=== PATIENT | female | born 1960 | race Two or more races ===

== ENCOUNTER 2020-04-19 08:52 | Outpatient (REF) | payer MEDICARE, MEDICAID, SELFPAY ==
[2020-04-19 10:04] LABS: Basophils Absolute Auto 0.1 X10*3/uL (0.0-0.2); Basophils Percent Auto 0.8 % (0-2); Eosinophils Absolute Auto 0.2 X10*3/uL (0.0-0.4); Hematocrit 37.7 % (37-47); Hemoglobin 11.8 g/dl (12.0-16.0); Imm Gran Abs Auto 0.02 X10*3/uL (0.00-0.03); Imm Gran Pct Auto 0.3 % (0.0-0.4); Lymphocytes Absolute Auto 1.6 X10*3/uL (1.2-4.9); Lymphocytes Percent Auto 26.7 % (20-40); MANUAL DIFF FLAG NO; Mean Corpuscular HGB Conc 31.3 g/dl (31.0-35.0); Mean Corpuscular Hemoglobin 26.7 pg (27.0-33.0); Mean Corpuscular Volume 85.3 fL (80-98); Mean Platelet Volume 10.4 fL (9.4-12.3); Monocytes Absolute Auto 0.6 X10*3/uL (0.1-1.2); Monocytes Percent Auto 9.2 % (2-11); Neutrophils Absolute Auto 3.6 X10*3/uL (2.0-8.3); Platelet Count 283 X10*3/uL (160-400); Red Blood Count 4.42 X10*6/uL (4.20-5.50); Red Cell Distribution Width 16.4 % (11.0-16.0)
[2020-04-19 10:21] LABS: Estimated Average Glucose 154 mg/dL
[2020-04-19 10:32] LABS: Alanine Aminotransferase 87 U/L (0-31); Alkaline Phosphatase 148 U/L (39-117); Anion Gap 11 (12-20); Aspartate Amino Transferase 94 U/L (5-31); Bilirubin Total 0.5 mg/dL (0.0-1.0); Blood Urea Nitrogen 10 mg/dL (9-16); Calcium 9.1 mg/dL (8.4-10.2); Carbon Dioxide 25 mmol/L (22-29); Chloride 104 mmol/L (96-108); Cholesterol 172 mg/dL; Estimated Glomerular Filt Rate > 60; Glucose Random 159 mg/dL (60-115); HDL Cholesterol 39 mg/dL; LDL Cholesterol Calculated 107 mg/dl; Potassium 4.4 mmol/l (3.3-5.1); Sodium 136 mmol/L (135-145); Total Protein 8.3 g/dL (6.5-8.0); Triglycerides 132 mg/dL
[2020-04-19 10:38] LABS: Thyroid Stimulating Hormone 2.32 uIU/mL (0.32-4.0)
[2020-04-19 10:49] LABS: Vitamin B12 416 pg/mL (200-900)
[2020-04-19 10:58] LABS: Glucose Urine UA >=1000 MG/DL (NEG); Leukocyte Esterase Urine NEG (NEG); Nitrite Urine NEG (NEG); Specific Gravity - Urine 1.015 (1.005-1.025); Urine Blood NEG (NEG); Urine Ketones NEG (NEG); Urine Protein NEG (NEG-TRACE)
[2020-04-19 11:00] LABS: Appearance Urine CLEAR; Color Urine YELLOW
[2020-04-19 11:21] LABS: Creatinine Urine 59.15 mg/dL; Microalbumin Urine < 5.0 mg/L
[2020-04-19 11:34] LABS: RBC Urine 0-2 /HPF (0); Squamous Epithelial Cell Urine 1+ /LPF; WBC Urine 0-2 /HPF (0-4)
== END 2020-04-19 08:53 | disposition home or self-care (01) ==
LOC: HO.LAB 08:52
PROVIDERS: PCP Internal Medicine; Visit Provider Internal Medicine
DX: E78.00 Pure hypercholesterolemia, unspecified (principal); M54.41 Lumbago with sciatica, right side; K75.4 Autoimmune hepatitis; E11.9 Type 2 diabetes mellitus without complications; Z79.4 Long term (current) use of insulin; R35.1 Nocturia; R53.83 Other fatigue; R53.81 Other malaise
CPT/HCPCS: 36415; 80053; 80061; 81001; 82043; 82607; 83036; 84443; 85025; 87086

== ENCOUNTER 2020-05-08 09:36 | Emergency (ER) | payer MEDICARE, MEDICAID, SELFPAY ==
[2020-05-08 09:44] VITALS: BP 157/65; PULSE 90; RESP 17; TEMP 36.1; O2SAT 98; BMI 27.8
--- NOTE | 2020-05-08 10:01 | XR_ITS ---
EXAMINATION: XR KNEE, RIGHT XR TIBIA/FIBULA, RIGHT CLINICAL INFORMATION: Pain. COMPARISON: None TECHNIQUE: AP, bilateral oblique, and lateral views of the right knee are obtained. AP and lateral views of the right tibia/fibular obtained. FINDINGS: Right knee: There is no fracture, malalignment, or joint effusion. There are tiny marginal osteophytes of the patella. There is no apparent joint space narrowing. There is focal ossification adjacent to the medial femoral epicondyle consistent with an old medial collateral ligament injury. There is evidence of old [place]-Schlatter's disease. Right tibia/fibula: There is no fracture or malalignment. The right ankle is unremarkable. There is a posterior calcaneal spur. XR/XR knee RT 4V IMPRESSION: Right knee: Minor spurring of the patella. No joint space narrowing. Old proximal medial collateral ligament injury and old [place]-Schlatter's disease. No evidence of acute injury. Right tibia/fibula: Posterior calcaneal spur. Otherwise, unremarkable radiographs.
--- NOTE | 2020-05-08 10:01 | ED.GENADULT ---
HPI - General Adult General Chief complaint: General Medical Stated complaint: rt leg pain Time Seen by Provider: 05/08/20 10:01 History of Present Illness HPI narrative: Patient complains of right knee pain and right smith pain starting yesterday, no accident, no fever no chills no redness no warmth no swelling, patient does have chronic back pain but she denies any pain radiating down her leg from the back Related Data Previous Rx's Medication Instructions Recorded omeprazole 40 mg capsule,delayed 40 mg PO DAILY 30 Days #30 cap 03/10/20 release folic acid 1 mg tablet 1 mg PO DAILY #30 tab 03/24/20 cyclobenzaprine 5 mg PO TID PRN #10 tab 05/08/20 walker #1 ea 05/08/20 Allergies Allergy/AdvReac Type Severity Reaction Status Date / Time duloxetine [From CYMBALTA] Allergy Intermediate SHAKINESS Verified 05/08/20 09:47 Review of Systems Review of Systems: No fever no chills no dizziness no weakness no recent injury, no numbness no weakness no tingling no calf pain no leg swelling no hip pain Yes all other systems are reviewed and are negative [facility] Past Medical History Source: nursing notes reviewed Medical History (Updated 05/08/20 @ 11:27 by CLAUDIA Palacios) Diabetes Fibromyalgia High blood pressure Social History Social History Advance Directives: No Advance Directives Information Provided: No Physical Exam Vital Signs: Vital Signs: Last Vital Signs Temp 96.9 F 05/08/20 09:44 Pulse 90 05/08/20 09:44 Resp 17 05/08/20 09:44 BP 157/65 H 05/08/20 09:44 Pulse Ox 98 05/08/20 09:44 Body Mass Index 27.8 Patient is A&O x3, comfortable relaxed cooperative no acute distress Normocephalic atraumatic Neck is supple Respiratory no distress The right leg exam the hip has full range of motion she can lift the leg there is no tenderness of the hip The thigh is not tender There is lateral and anterior right knee tenderness but no redness warmth or swelling there is pain when she flexes the knee there is also tenderness to the proximal tibia area just below the knee anterior, again no redness no warmth no swelling there is no calf tenderness or swelling and there is no edema, the leg is neurovascular intact distal, she is walking but with a limp, the skin is intact no wounds The skin no rashes Neuro no focal deficit Course Course Course Narrative: X-ray of right knee showed some arthritic changes, x-ray of the right tibial had no acute findings Discharge Plan Discharge Clinical Impression: Knee joint pain Qualifiers: Laterality: right Qualified Code(s): M25.561 - Pain in right knee Patient Disposition: Home, Self-Care Additional Instructions: Follow with orthopedist and your doctor for further evaluation Prescriptions: New cyclobenzaprine 5 mg tablet 5 mg PO TID PRN (Reason: muscle spasm) Qty: 10 RF: 0 (DME) walker Misc See Rx Instructions .ROUTE .MEDSUPPLY Qty: 1 RF: 0 No Action omeprazole 40 mg capsule,delayed release(DR/EC) 40 mg PO DAILY 30 Days Qty: 30 RF: 2 folic acid 1 mg tablet 1 mg PO DAILY Qty: 30 RF: 5 Referrals: Lyndsey Smith MD [Physician] - 2 days (Right knee pain) Discharge Date/Time: 05/08/20 11:35
--- NOTE | 2020-05-08 10:02 | XR_ITS ---
EXAMINATION: XR KNEE, RIGHT XR TIBIA/FIBULA, RIGHT CLINICAL INFORMATION: Pain. COMPARISON: None TECHNIQUE: AP, bilateral oblique, and lateral views of the right knee are obtained. AP and lateral views of the right tibia/fibular obtained. FINDINGS: Right knee: There is no fracture, malalignment, or joint effusion. There are tiny marginal osteophytes of the patella. There is no apparent joint space narrowing. There is focal ossification adjacent to the medial femoral epicondyle consistent with an old medial collateral ligament injury. There is evidence of old [place]-Schlatter's disease. Right tibia/fibula: There is no fracture or malalignment. The right ankle is unremarkable. There is a posterior calcaneal spur. XR/XR tibia fibula RT 2V IMPRESSION: Right knee: Minor spurring of the patella. No joint space narrowing. Old proximal medial collateral ligament injury and old [place]-Schlatter's disease. No evidence of acute injury. Right tibia/fibula: Posterior calcaneal spur. Otherwise, unremarkable radiographs.
== END 2020-05-08 11:35 | disposition home or self-care (01) ==
PROVIDERS: Emergency Provider Emergency Medicine; PCP Internal Medicine
DX: M25.561 Pain in right knee (principal); M79.604 Pain in right leg; M79.7 Fibromyalgia; Z79.899 Other long term (current) drug therapy
CPT/HCPCS: 73564; 73590; 99283

== ENCOUNTER → 2020-05-17 09:08 | Outpatient (BNVA) | payer MEDICARE, MEDICAID, SELFPAY | PROVIDERS: PCP Internal Medicine; Visit Provider Internal Medicine Gastroenterology | DX: Z13.89 Encounter for screening for other disorder (principal) | CPT/HCPCS: Q3014 ==

== ENCOUNTER 2020-05-18 09:30 | Outpatient (REF) | payer MEDICARE, MEDICAID, SELFPAY ==
[2020-05-18 10:08] LABS: Basophils Absolute Auto 0.1 X10*3/uL (0.0-0.2); Basophils Percent Auto 1.1 % (0-2); Eosinophils Absolute Auto 0.1 X10*3/uL (0.0-0.4); Eosinophils Percent Auto 2.3 % (0-4); Hematocrit 36.3 % (37-47); Imm Gran Abs Auto 0.01 X10*3/uL (0.00-0.03); Imm Gran Pct Auto 0.2 % (0.0-0.4); Lymphocytes Absolute Auto 2.1 X10*3/uL (1.2-4.9); Lymphocytes Percent Auto 36.9 % (20-40); MANUAL DIFF FLAG NO; Mean Corpuscular HGB Conc 30.3 g/dl (31.0-35.0); Mean Corpuscular Hemoglobin 25.8 pg (27.0-33.0); Mean Corpuscular Volume 85.2 fL (80-98); Mean Platelet Volume 10.3 fL (9.4-12.3); Monocytes Absolute Auto 0.5 X10*3/uL (0.1-1.2); Monocytes Percent Auto 9.7 % (2-11); Neutrophils Absolute Auto 2.8 X10*3/uL (2.0-8.3); Neutrophils Percent Auto 49.8 % (45-73); Platelet Count 258 X10*3/uL (160-400); Red Blood Count 4.26 X10*6/uL (4.20-5.50); White Blood Count 5.6 X10*3/uL (4.8-10.8)
[2020-05-18 10:13] LABS: Prothrombin Time 12.1 SEC (10.8-13.0)
[2020-05-18 11:33] LABS: Alanine Aminotransferase 173 U/L (0-31); Albumin Level 3.9 g/dL (3.5-5.0); Alkaline Phosphatase 177 U/L (39-117); Anion Gap 11 (12-20); Aspartate Amino Transferase 169 U/L (5-31); Bilirubin Total 0.6 mg/dL (0.0-1.0); Blood Urea Nitrogen 8 mg/dL (9-16); Calcium 8.8 mg/dL (8.4-10.2); Carbon Dioxide 26 mmol/L (22-29); Chloride 102 mmol/L (96-108); Estimated Glomerular Filt Rate > 60; Glucose Random 135 mg/dL (60-115); Iron 39 mcg/dL (30-160); Percent Iron Saturation 9 % (15-50); Potassium 4.2 mmol/l (3.3-5.1); Sodium 135 mmol/L (135-145); Total Iron Binding Capacity 429 mcg/dL (228-428); Total Protein 8.8 g/dL (6.5-8.0); Unsaturated Iron Binding 390 ug/dL
[2020-05-18 11:40] LABS: Folate > 20.0 ng/mL (> or = 4.0); Vitamin B12 522 pg/mL (200-900)
[2020-05-19 15:39] LABS: Mitochondrial Antibodies NEGATIVE (NEGATIVE)
[2020-05-19 17:12] LABS: Immunoglobulin G 2964 mg/dL (600-1640)
[2020-05-23 13:03] LABS: Vitamin D 25-OH, D2 <4 ng/mL; Vitamin D 25-OH, D3 31 ng/mL; Vitamin D 25-OH, Total 31 ng/mL (30-100)
[2020-05-24 14:12] LABS: Beta-Gamma Tocopherol 2.5 mg/L (<=4.3); Vitamin A 21 mcg/dL (38-98)
[2020-05-24 14:57] LABS: Vitamin B1 9 nmol/L (8-30)
[2020-05-24 17:17] LABS: Vitamin C 1.1 mg/dL (0.3-2.7)
[2020-05-24 17:47] LABS: Nicotinamide <20 ng/mL; Vit B3 - Nicotinic Acid <20 ng/mL
[2020-05-25 12:43] LABS: Vitamin B6 23.3 ng/mL (2.1-21.7)
[2020-05-25 17:02] LABS: Vitamin K1 415 pg/mL (130-1500)
[2020-05-31 19:12] LABS: Vitamin B5 (Pantothenic Acid) 63 ng/mL (<275)
== END 2020-05-18 09:31 | disposition home or self-care (01) ==
LOC: HO.LAB 09:30
PROVIDERS: PCP Internal Medicine; Visit Provider Internal Medicine Gastroenterology
DX: K74.60 Unspecified cirrhosis of liver (principal); K75.81 Nonalcoholic steatohepatitis (NASH); K75.4 Autoimmune hepatitis; E11.9 Type 2 diabetes mellitus without complications; Z79.4 Long term (current) use of insulin
CPT/HCPCS: 36415; 80053; 82180; 82306; 82607; 82746; 82784; 83540; 84207; 84425; 84446; 84590; 84591; 84597; 85025; 85610; 86255; 86256

== ENCOUNTER → 2020-05-19 10:02 | Outpatient (BNVA) | payer MEDICARE, MEDICAID, SELFPAY | PROVIDERS: PCP Internal Medicine; Visit Provider Surgery | DX: K80.20 Calculus of gallbladder without cholecystitis without obstruction (principal) | CPT/HCPCS: 99212 ==

== ENCOUNTER → 2020-06-02 13:06 | Outpatient (BNVA) | payer MEDICARE, MEDICAID, SELFPAY | PROVIDERS: PCP Internal Medicine; Visit Provider Surgery | DX: K80.20 Calculus of gallbladder without cholecystitis without obstruction (principal) | CPT/HCPCS: 99212 ==

== ENCOUNTER → 2020-06-06 13:10 | Outpatient (BNVA) | payer MEDICARE, MEDICAID, SELFPAY | PROVIDERS: PCP Internal Medicine; Visit Provider Internal Medicine Cardiovascular Disease | DX: Z01.810 Encounter for preprocedural cardiovascular examination (principal); R06.00 Dyspnea, unspecified | CPT/HCPCS: 93005; 99212 ==

== ENCOUNTER → 2020-06-07 10:24 | Outpatient (BNV) | payer MEDICARE, MEDICAID, SELFPAY | PROVIDERS: PCP Internal Medicine; Visit Provider Internal Medicine Medical Oncology | DX: D68.61 Antiphospholipid syndrome (principal) | CPT/HCPCS: 99212; 99213; 99214 ==

== ENCOUNTER 2020-06-10 10:32 | Outpatient (REF) | payer MEDICARE, MEDICAID, SELFPAY ==
--- NOTE | 2020-06-10 10:47 | MR_ITS ---
EXAMINATION: MR ABDOMEN WITHOUT AND WITH CONTRAST CLINICAL INFORMATION: Autoimmune hepatitis COMPARISON: Previous CT scan of the abdomen and pelvis December 2019 and abdominal ultrasounds most recent October 2019 TECHNIQUE: MR abdomen was performed without and with use of 6.5 mL intravenous Gadavist gadolinium contrast. Postcontrast images are performed in multiphase dynamic sequences. Imaging was performed in 3 planes. FINDINGS: LUNG BASES: The visualized lung bases are unremarkable. LIVER, GALLBLADDER, AND BILIARY TREE: The liver is normal in size and normal in signal. The contour of the liver is slightly irregular or nodular questionable for mild cirrhosis. No focal hepatic lesion or biliary ductal dilatation is present. The gallbladder is unremarkable with no evidence of gallbladder wall thickening, or obvious pericholecystic inflammatory changes. PANCREAS: Unremarkable. SPLEEN: Normal. ADRENAL GLANDS: Normal. KIDNEYS AND URETERS: The kidneys are normal in size, shape, and enhance symmetrically. No hydronephrosis. No perinephric stranding. GASTROINTESTINAL TRACT: No bowel obstruction. No ascites or fluid collection. ABDOMINAL WALL: No significant hernia is appreciated. LYMPH NODES: There are prominent upper abdominal periportal, peripancreatic and retroperitoneal lymph nodes. Largest lymph lymph nodes are a precaval lymph node measuring 1.3 x 3.3 cm and periportal lymph nodes measuring 1.4 x 2.9 cm and 1.4 x 2.5 cm. These appear similar to previous CT scan. VASCULAR: Unremarkable. OSSEOUS STRUCTURES: Marrow signal normal. There is mild degenerative disc disease and lower thoracic spine and at L5-S1. MR/MR abdomen wo/w con IMPRESSION: Slightly cirrhotic-appearing liver. No focal liver lesion seen. Slightly enlarged upper abdominal lymph nodes similar to previous CT scan.
[2020-06-10 12:35] LABS: C Reactive Protein 0.51 mg/dL (< or = 0.50)
[2020-06-10 12:38] LABS: Erythrocyte Sedimentation Rate 34 MM/HR (0-20)
[2020-06-10 14:08] LABS: Glucose Urine UA >=1000 MG/DL (NEG); Leukocyte Esterase Urine NEG (NEG); Nitrite Urine NEG (NEG); Specific Gravity - Urine 1.015 (1.005-1.025); Urine Blood NEG (NEG); Urine Ketones NEG (NEG); Urine Protein NEG (NEG-TRACE)
[2020-06-10 14:21] LABS: Appearance Urine CLEAR; Color Urine YELLOW
[2020-06-10 15:03] LABS: RBC Urine 0-2 /HPF (0); Renal Epithelial Cells Urine TRACE /LPF; Squamous Epithelial Cell Urine TRACE /LPF; WBC Urine 0-2 /HPF (0-4)
[2020-06-11 11:42] LABS: Complement C3 146 mg/dL (83-193)
[2020-06-11 14:28] LABS: Anti DNA DS Antibody 71 IU/mL
== END 2020-06-10 10:33 | disposition home or self-care (01) ==
LOC: HO.MRI 10:32
PROVIDERS: Absent Provider Student in an Organized Health Care Education/Training Program; PCP Internal Medicine; Visit Provider Internal Medicine Gastroenterology
DX: K74.60 Unspecified cirrhosis of liver (principal); K75.4 Autoimmune hepatitis; K75.81 Nonalcoholic steatohepatitis (NASH); M32.9 Systemic lupus erythematosus, unspecified; R76.0 Raised antibody titer
CPT/HCPCS: 36415; 74183; 81001; 85652; 86140; 86160; 86225; A9585; Q3014

== ENCOUNTER 2020-06-20 06:02 | Day surgery (SDC) | payer MEDICARE, MEDICAID, SELFPAY ==
[2020-06-13 12:56] VITALS: BMI 26.3
--- NOTE | 2020-06-17 11:01 | HO.ANESPROP2 ---
Documented by User: Mireille Mccall 06/17/20 11:06 HPI - Anesthesia Eval Consult details Narrative: 59yo F for Cholecystectomy Laparoscopic Cardiac cleared at [facility] Past Medical History Medical History Abdominal bloating Antiphospholipid antibody syndrome Arthritis Autoimmune hepatitis Cirrhosis Diabetes POOL (dyspnea on exertion) Fibromyalgia Gallstones High blood pressure Leg pain, right Lupus Nonalcoholic steatohepatitis (SHARMA) Family History Family History Father History of heart bypass surgery History of diabetes mellitus, type II History of hypertension Mother History of diabetes mellitus, type II Brother History of gout Paternal Uncle History of stomach cancer Surgical History Surgical History History of carpal tunnel release History of cataract surgery (2010) History of cervical discectomy (07/2009) History of colonoscopy History of repair of right rotator cuff (08/2011) History of shoulder surgery Hx of endoscopy Social History Social History Alcohol intake: former Smoking Status: Never smoker Use of substances other than those prescribed or required for medical reasons: No Advance Directives: No Advance Directives Information Provided: No Advance Directives on File: No Meds Allergies Allergy/AdvReac Type Severity Reaction Status Date / Time duloxetine [From CYMBALTA] Allergy Intermediate SHAKINESS Verified 06/10/20 08:24 Home Medications Medication Instructions Recorded Confirmed Type glipizide 10 mg tablet 10 mg PO DAILY 05/17/20 06/13/20 History lisinopril 2.5 mg tablet 2.5 mg PO DAILY 05/17/20 06/13/20 History metformin 500 mg tablet 500 mg PO BID 05/17/20 06/13/20 History albuterol sulfate 90 mcg/actuation 90 mcg INHALATION BID PRN 06/06/20 06/13/20 History aerosol inhaler fluticasone propionate 50 50 mcg INTRANASAL DAILY 06/06/20 06/13/20 History mcg/actuation nasal spray,suspension loratadine 10 mg PO DAILY 06/07/20 06/13/20 History lorazepam 0.5 mg PO QID PRN 06/07/20 06/13/20 History ondansetron 4 mg PO Q6-8H PRN 06/07/20 06/13/20 History oxycodone 5 mg PO Q4-6H PRN 06/07/20 06/13/20 History cholecalciferol (vitamin D3) 25 25 mcg PO DAILY 06/10/20 06/13/20 History mcg (1,000 unit) capsule zolpidem 10 mg tablet 10 mg PO BEDTIME PRN 06/10/20 06/13/20 History empagliflozin [Jardiance] 25 mg PO DAILY 06/13/20 06/13/20 History Exam Exam Date and Time: June 17, 2020 1101 Height,Weight and Vital Signs: Height 5 ft 2 in Weight 65.317 kg Pertinent Lab Results Pertinent Lab Results: Laboratory Tests 06/07/20 06/07/20 10:34 10:34 WBC 5.6 Hgb 11.9 L Hct 38.9 Plt Count 265 Sodium 137 Potassium 4.3 Chloride 102 Carbon Dioxide 27 BUN 11 Creatinine 0.76 Laboratory Tests 05/18/20 06/07/20 09:43 10:34 PT 12.1 INR 1.0 Total Bilirubin 0.5 AST 87 H ALT 93 H Alkaline Phosphatase 140 H D Total Protein 8.8 H Albumin 4.0 Narrative Narrative: EKG 06/06/20 NSR ECHO 2019 Nml BiV function, no pericardial effusion Assessment and Plan Assessment Anesthesia Assessment: Chart Reviewed Documented by User: Juma Dash 06/20/20 07:41 PMFSH Past Medical History Medical History Abdominal bloating Antiphospholipid antibody syndrome Arthritis Autoimmune hepatitis Cirrhosis Diabetes POOL (dyspnea on exertion) Fibromyalgia Gallstones High blood pressure Leg pain, right Lupus Nonalcoholic steatohepatitis (SHARMA) Family History Family History Father History of heart bypass surgery History of diabetes mellitus, type II History of hypertension Mother History of diabetes mellitus, type II Brother History of gout Paternal Uncle History of stomach cancer Surgical History Surgical History History of carpal tunnel release History of cataract surgery (2010) History of cervical discectomy (07/2009) History of colonoscopy History of repair of right rotator cuff (08/2011) History of shoulder surgery Hx of endoscopy Social History Social History Alcohol intake: former Smoking Status: Never smoker Use of substances other than those prescribed or required for medical reasons: No Advance Directives: No Advance Directives Information Provided: No Advance Directives on File: No Meds Allergies Allergy/AdvReac Type Severity Reaction Status Date / Time duloxetine [From CYMBALTA] Allergy Intermediate SHAKINESS Verified 06/10/20 08:24 Home Medications Medication Instructions Recorded Confirmed Type glipizide 10 mg tablet 10 mg PO DAILY 05/17/20 06/13/20 History lisinopril 2.5 mg tablet 2.5 mg PO DAILY 05/17/20 06/13/20 History metformin 500 mg tablet 500 mg PO BID 05/17/20 06/13/20 History albuterol sulfate 90 mcg/actuation 90 mcg INHALATION BID PRN 06/06/20 06/13/20 History aerosol inhaler fluticasone propionate 50 50 mcg INTRANASAL DAILY 06/06/20 06/13/20 History mcg/actuation nasal spray,suspension loratadine 10 mg PO DAILY 06/07/20 06/13/20 History lorazepam 0.5 mg PO QID PRN 06/07/20 06/13/20 History ondansetron 4 mg PO Q6-8H PRN 06/07/20 06/13/20 History oxycodone 5 mg PO Q4-6H PRN 06/07/20 06/13/20 History cholecalciferol (vitamin D3) 25 25 mcg PO DAILY 06/10/20 06/13/20 History mcg (1,000 unit) capsule zolpidem 10 mg tablet 10 mg PO BEDTIME PRN 06/10/20 06/13/20 History empagliflozin [Jardiance] 25 mg PO DAILY 06/13/20 06/13/20 History Exam Airway Mallampati Class: II TM Dist: >3cm Neck ROM: Full Partial: Upper Loose/Missing/Broken Teeth: No Heart: [id number] Lungs: cta b/l Assessment and Plan Assessment Anesthesia Assessment: Anesthesia Plan Discussed, PAT Visit and Chart Reviewed Final Anesthetic Review NPO: Yes ASA Class: III Final Preanesthetic Review: No Changes in Pt Med Stat, Meds/Allgs Chart Reviewed, Consent Obtained/Reviewed and Anes Risks/Benef Reviewed Patient Risk: Intermediate Procedure Risk: Low Assessment/Block/Sedation in SS: Assess/Block/Sedation-SS Anesthetic Plan Anesthetic Plan: GA and Agree w/ Assess. and Plan Disposition: Standard PACU
[2020-06-20] VITALS (11 sets, daily range): BP systolic 121–174; BP diastolic 56–82; PULSE 77–98; RESP 14–16; TEMP 36.2–36.6; O2SAT 94–99
[2020-06-20] MEDS: Lactated Ringers 1,000 ML 100 ML IVCONT (06:43)
[2020-06-20] MEDS: Acetaminophen 325 MG TABLET 650 MG PO (06:44)
--- NOTE | 2020-06-20 07:22 | MHC.SHP ---
Pre-Procedural Eval Section B Chief Complaint: gallstones Allergies: Allergies Allergy/AdvReac Type Severity Reaction Status Date / Time duloxetine [From CYMBALTA] Allergy Intermediate SHAKINESS Verified 06/10/20 08:24 Plan I have reviewed the history and physical and performed a pertinent physical examination on my patient. No changes have occurred unless specified.
--- NOTE | 2020-06-20 08:49 | PM.OP ---
Brief Operative Note Date of Service: 06/20/20 <SPENCER Pandey Last Filed: 06/20/20 08:50> Pre-op diagnosis: gallstones <SPENCER Pandey Last Filed: 06/20/20 08:50> Post-op diagnosis: same (severe cirrhosis) <SPENCER Pandey Last Filed: 06/20/20 08:50> Procedure: laparoscopic cholecystectomy <SPENCER Pandey Last Filed: 06/20/20 08:50> Implants: gallbladder <SPENCER Pandey Last Filed: 06/20/20 08:50> Surgeon: Jj Desai MD <SPENCER Pandey Last Filed: 06/20/20 08:50> Anesthesia: GETA <SPENCER Pandey Last Filed: 06/20/20 08:50> Operator Cavity Pump: Selena Almaguer <SPENCER Pandey Last Filed: 06/20/20 08:50> Estimated blood loss (mL): 10 <SPENCER Pandey Last Filed: 06/20/20 08:50> Pathology: other (gallbladder) <SPENCER aPndey Last Filed: 06/20/20 08:50> Condition: stable <SPENCER Pandey Last Filed: 06/20/20 08:50> Disposition: PACU <SPENCER Pandey Last Filed: 06/20/20 08:50>
[2020-06-20] MEDS: HYDROmorphone HCl 0.5 MG/0.5 ML SYRINGE IVPUSH (09:06)
[2020-06-20] MEDS: oxyCODONE HCl Immed Release 5 MG TABLET 10 MG PO (09:23)
[2020-06-20 09:30] LABS: Glucose, Whole Blood 160 mg/dL (60-115)
--- NOTE | 2020-06-20 10:15 | PC.NURSE ---
1010MONITORS DCD ASST OOB LOG ROLL WITH GOOD RET DEMO, ASST TO BS CH REYNALDO DRESSED SELF AT BS CALL PELAYO IN REACH.
--- NOTE | 2020-06-20 10:38 | HO.POSTANES ---
Post Anesthesia Evaluation Post Anesthesia Evaluation Vital Signs: Vital Signs Temp Pulse Resp BP Pulse Ox 06/20/20 10:01 97.4 F 85 16 140/59 H 96 06/20/20 09:46 86 16 133/56 L 97 06/20/20 09:31 77 16 127/57 L 97 06/20/20 09:16 86 16 145/71 H 96 06/20/20 09:11 88 16 145/69 H 94 06/20/20 09:06 16 06/20/20 09:01 88 16 144/70 H 97 06/20/20 08:56 89 16 144/70 H 98 06/20/20 08:51 88 16 151/69 H 99 06/20/20 08:46 97.9 F 98 14 174/82 H 99 06/20/20 06:31 97.2 F 82 16 121/63 97 Anesthesia: General Endotracheal-GETA Mental Status: Awake Pain Control: Satisfactory Nausea/Vomiting: None Hydration: Adequate Anesthesia-Related Issues: No Anes. Related Issues
--- NOTE | 2020-06-20 13:50 | OP_ITS ---
SURGEON: Jj Desai MD INDICATIONS: The patient is a 59-year-old female, who has had gallstones on imaging studies from last year. She was referred to me because of this initially, but at that time when I saw her last year, she did not have significant pain on the right upper quadrant. She came back this May and states that she had been having more episodes of right upper quadrant pain and wanted to proceed with cholecystectomy. She understood the technique of procedure and she is aware of the risks, benefits, and alternatives. She says that she had been worked up for liver issues in the past and stated that she had a liver biopsy in [facility] for [facility] showing grade 1 cirrhosis. LFTs were otherwise normal. Review of her imaging studies did not reveal any signs of portal hypertension. PREOPERATIVE DIAGNOSIS: Gallstones, symptomatic. POSTOPERATIVE DIAGNOSIS: 1. Gallstones. 2. Significant cirrhosis of the liver. PROCEDURE PERFORMED: Laparoscopic cholecystectomy. ESTIMATED BLOOD LOSS: COMPLICATIONS: ANESTHESIA: ASSISTANTS: Selena Almaguer PA-C. SPECIMENS: DESCRIPTION OF PROCEDURE: The patient was brought to the operating room, placed supine on the table under general anesthesia via endotracheal tube. The abdomen was prepped and draped in the usual sterile fashion. A surgical time-out was done. The patient received Cefotan 2 g IV preoperatively. A short supraumbilical incision was made in the skin using blade #15, it was carried down to full-thickness skin and subcutaneous fat down to the fascia. The fascia was incised. The peritoneum was entered. Through this incision, a Anne port was introduced. Pneumoperitoneum was introduced to a pressure of 15 mmHg and from here on, the rest of procedure was done under vision with the laparoscope. Examination of the right upper quadrant showed that the liver was severely nodular consistent with cirrhosis. The gallbladder was visualized and this was supple and noninflamed although distended. I proceeded to place a 5/12 mm port in the epigastric area below the subcostal margin through small incision. 5 mm port was introduced through a small incision below the subcostal margin along the anterior axillary line and the midclavicular line. Graspers were placed through these working ports and the patient was placed in head-up and lkue-pwhe-date position. We applied a grasper at the fundus of the gallbladder and this was used to retract the gallbladder cephalad. This was done gently in view of the severe cirrhosis. I was able to apply another grasper towards the pouch of the gallbladder and this was used to retract this laterally. At this point, the gallbladder was being retracted in cephalad and lateral fashion. This allowed the area of the cystic duct to be placed on stretch. We proceeded to gently dissect fibrinous and areolar tissue surrounding the anterior wall of the gallbladder away from the cystic duct. We continued this dissection until I was able to clearly see the cystic duct. We dissected the cystic duct circumferentially using [place] dissector to confirm its confluence of the neck of the gallbladder. By doing so, we were able to achieve a critical view of the hepatocystic triangle as well and there were no other tubular structures except for what appeared to be a very fine cystic artery. With the confluence of the neck of the gallbladder through the cystic duct being confirmed, we applied clips on the cystic duct with 2 clips applied distally. The cystic duct was transected between clips. We then applied clips on the cystic artery and transected between the clips as well. Transection was done using the Endo scissors. With traction in the gallbladder wall away from the liver, we proceeded to continue to dissect through the hilum. We incised the peritoneum of the gallbladder using the electrocautery spatula and proceeded to define a plane of dissection between the gallbladder wall and the liver bed. We gently dissected the gallbladder wall from the liver bed using a combination of blunt dissection with the tip of the spatula as well as electrocautery. We had to do this in a deliberate manner in view of the severely cirrhotic liver. Proceeded with this gentle dissection all the way to the fundus until the entire gallbladder was completely from the liver bed. The gallbladder was retrieved through an Endobag through the umbilical incision. We re-inserted all ports and insufflated. I examined all four quadrants and there was no other pathology. I examined the subhepatic space. There was no bleeding or any bile leak. I copiously irrigated and suctioned out the irrigant fluid as there was some minimal spillage of bile from a small tear in the gallbladder wall. We observed for hemostasis. Once hemostasis was ensured, proceeded to then desufflate the port sites. We removed all ports under vision with the umbilical port being removed last. The fascia of the umbilical incision was closed with [id number] Dexon 0 stitch. Skin closure was achieved in all incisions using Dexon 4-0 subcuticular running sutures. Steri-Strips and dressings were applied. The patient tolerated the procedure well and there were no complications noted. Initial and final counts of sponge and instruments were correct. Estimated blood loss about 10 mL. The patient was extubated and transferred to recovery room with stable vital signs. MD DOMINIC Rich/LORENA / [id number] MTDD
== END 2020-06-20 11:03 | disposition home or self-care (01) ==
PROVIDERS: PCP Internal Medicine; Visit Provider Surgery
PROC: 0FT44ZZ Resection of Gallbladder, Percutaneous Endoscopic Approach (ICD-10-PCS; CPT 47562; principal; 2020-06-20 07:30)
DX: K80.10 Calculus of gallbladder with chronic cholecystitis without obstruction (principal); K74.60 Unspecified cirrhosis of liver; D68.61 Antiphospholipid syndrome; K75.4 Autoimmune hepatitis; K75.81 Nonalcoholic steatohepatitis (NASH); E11.9 Type 2 diabetes mellitus without complications; I10 Essential (primary) hypertension; M32.9 Systemic lupus erythematosus, unspecified; Z79.82 Long term (current) use of aspirin; Z79.84 Long term (current) use of oral hypoglycemic drugs; R06.00 Dyspnea, unspecified
CPT/HCPCS: 47562; 82947; 88304; J1100; J1170; J2250; J2370; J2405; J3010

== ENCOUNTER → 2020-06-30 14:35 | Outpatient (BNVA) | payer MEDICARE, MEDICAID, SELFPAY | PROVIDERS: PCP Internal Medicine; Visit Provider Surgery | DX: Z09 Encounter for follow-up examination after completed treatment for conditions other than malignant neoplasm (principal); K74.60 Unspecified cirrhosis of liver; Z90.49 Acquired absence of other specified parts of digestive tract | CPT/HCPCS: 99212 ==

== ENCOUNTER 2020-07-11 09:54 | Outpatient (REF) | payer MEDICARE, MEDICAID, SELFPAY ==
[2020-07-11 10:45] LABS: MANUAL DIFF FLAG NO
[2020-07-11 10:48] LABS: Basophils Absolute Auto 0.1 X10*3/uL (0.0-0.2); Basophils Percent Auto 1.1 % (0-2); Eosinophils Absolute Auto 0.1 X10*3/uL (0.0-0.4); Eosinophils Percent Auto 1.7 % (0-4); Hematocrit 38.3 % (37-47); Hemoglobin 12.1 g/dl (12.0-16.0); Imm Gran Abs Auto 0.01 X10*3/uL (0.00-0.03); Imm Gran Pct Auto 0.2 % (0.0-0.4); Lymphocytes Absolute Auto 1.8 X10*3/uL (1.2-4.9); Mean Corpuscular HGB Conc 31.6 g/dl (31.0-35.0); Mean Corpuscular Hemoglobin 25.9 pg (27.0-33.0); Mean Corpuscular Volume 81.8 fL (80-98); Mean Platelet Volume 9.8 fL (9.4-12.3); Monocytes Absolute Auto 0.4 X10*3/uL (0.1-1.2); Monocytes Percent Auto 7.9 % (2-11); Neutrophils Percent Auto 56.1 % (45-73); Platelet Count 302 X10*3/uL (160-400); Red Blood Count 4.68 X10*6/uL (4.20-5.50); Red Cell Distribution Width 15.6 % (11.0-16.0); White Blood Count 5.3 X10*3/uL (4.8-10.8)
[2020-07-11 11:01] LABS: Appearance Urine CLEAR; Color Urine YELLOW; Glucose Urine UA >=1000 MG/DL (NEG); Leukocyte Esterase Urine NEG (NEG); Nitrite Urine NEG (NEG); Urine Blood NEG (NEG); Urine Ketones NEG (NEG); Urine Protein NEG (NEG-TRACE)
[2020-07-11 11:10] LABS: Alanine Aminotransferase 29 U/L (0-31); Albumin Level 4.1 g/dL (3.5-5.0); Alkaline Phosphatase 87 U/L (39-117); Anion Gap 13 (12-20); Aspartate Amino Transferase 43 U/L (5-31); Bilirubin Direct 0.2 mg/dL (0.0-0.5); Bilirubin Total 0.7 mg/dL (0.0-1.0); Blood Urea Nitrogen 6 mg/dL (9-16); Carbon Dioxide 25 mmol/L (22-29); Chloride 104 mmol/L (96-108); Estimated Glomerular Filt Rate > 60; Glucose Random 151 mg/dL (60-115); Potassium 4.1 mmol/L (3.3-5.1); Sodium 138 mmol/L (135-145); Total Protein 8.1 g/dL (6.5-8.0)
[2020-07-11 11:26] LABS: RBC Urine 0-2 /HPF (0); Squamous Epithelial Cell Urine 1+ /LPF; WBC Urine 0-2 /HPF (0-4)
[2020-07-12 11:13] LABS: Immunoglobulin G 1943 mg/dL (600-1640)
[2020-07-14 23:07] LABS: Vitamin A 38 mcg/dL (38-98)
== END 2020-07-11 09:55 | disposition home or self-care (01) ==
LOC: HO.LAB 09:54
PROVIDERS: Internal Medicine Gastroenterology; Student in an Organized Health Care Education/Training Program; PCP Internal Medicine; Visit Provider Internal Medicine
DX: E11.9 Type 2 diabetes mellitus without complications (principal); Z79.4 Long term (current) use of insulin; K75.4 Autoimmune hepatitis; I10 Essential (primary) hypertension; K74.60 Unspecified cirrhosis of liver; K75.81 Nonalcoholic steatohepatitis (NASH)
CPT/HCPCS: 36415; 80053; 80076; 81001; 82248; 82784; 84590; 85025

== ENCOUNTER 2020-07-11 11:11 | Outpatient (REF) | payer MEDICARE, MEDICAID, SELFPAY | END 2020-07-11 11:12 | disposition home or self-care (01) | LOC: HO.LAB 11:11 | PROVIDERS: PCP Internal Medicine; Visit Provider Internal Medicine | DX: Z20.822 Contact with and (suspected) exposure to COVID-19 (principal) | CPT/HCPCS: 36415; C9803; U0003; U0005 ==

== ENCOUNTER 2020-08-26 10:08 | Outpatient (REF) | payer MEDICARE, MEDICAID, SELFPAY ==
[2020-08-26 11:37] LABS: MANUAL DIFF FLAG NO
[2020-08-26 11:42] LABS: Basophils Absolute Auto 0.1 X10*3/uL (0.0-0.2); Basophils Percent Auto 1.1 % (0-2); Eosinophils Absolute Auto 0.1 X10*3/uL (0.0-0.4); Hematocrit 39.4 % (37-47); Imm Gran Abs Auto 0.01 X10*3/uL (0.00-0.03); Imm Gran Pct Auto 0.2 % (0.0-0.4); Lymphocytes Absolute Auto 1.8 X10*3/uL (1.2-4.9); Mean Corpuscular HGB Conc 30.5 g/dl (31.0-35.0); Mean Corpuscular Hemoglobin 25.7 pg (27.0-33.0); Mean Corpuscular Volume 84.4 fL (80-98); Monocytes Absolute Auto 0.5 X10*3/uL (0.1-1.2); Monocytes Percent Auto 8.2 % (2-11); Neutrophils Absolute Auto 3.2 X10*3/uL (2.0-8.3); Neutrophils Percent Auto 56.5 % (45-73); Platelet Count 273 X10*3/uL (160-400); Red Blood Count 4.67 X10*6/uL (4.20-5.50); Red Cell Distribution Width 16.6 % (11.0-16.0); White Blood Count 5.6 X10*3/uL (4.8-10.8)
[2020-08-26 11:49] LABS: INTERNATIONAL NORM RATIO 1.1 (0.9-1.1); Prothrombin Time 12.8 SEC (10.8-13.0)
[2020-08-26 11:54] LABS: Glucose Urine UA >=1000 MG/DL (NEG); Leukocyte Esterase Urine NEG (NEG); Nitrite Urine NEG (NEG); Urine Blood NEG (NEG); Urine Ketones NEG (NEG); Urine Protein NEG (NEG-TRACE)
[2020-08-26 11:57] LABS: Appearance Urine CLEAR; Color Urine YELLOW
[2020-08-26 12:19] LABS: RBC Urine 0-2 /HPF (0); Squamous Epithelial Cell Urine 1+ /LPF; WBC Urine 0-2 /HPF (0-4)
[2020-08-26 12:28] LABS: Erythrocyte Sedimentation Rate 27 MM/HR (0-20)
[2020-08-26 12:38] LABS: Alanine Aminotransferase 21 U/L (0-31); Albumin Level 4.4 g/dL (3.5-5.0); Alkaline Phosphatase 114 U/L (39-117); Anion Gap 15 (12-20); Aspartate Amino Transferase 31 U/L (5-31); Bilirubin Total 0.2 mg/dL (0.0-1.0); Blood Urea Nitrogen 10 mg/dL (9-16); Calcium 9.2 mg/dL (8.4-10.2); Carbon Dioxide 27 mmol/L (22-29); Chloride 100 mmol/L (96-108); Estimated Glomerular Filt Rate > 60; Glucose Random 138 mg/dL (60-115); Potassium 4.7 mmol/L (3.3-5.1); Sodium 137 mmol/L (135-145)
[2020-08-26 12:43] LABS: Ferritin 9 ng/mL (10-250); Vitamin D 25-OH Total 30.3 ng/mL (>30)
[2020-08-26 14:02] LABS: Folate > 20.0 ng/mL (> or = 4.0); Vitamin B12 542 pg/mL (200-900)
[2020-08-30 00:21] LABS: Zinc 82 mcg/dL (60-130)
[2020-08-30 14:37] LABS: Nicotinamide 26 ng/mL; Vit B3 - Nicotinic Acid <20 ng/mL
[2020-08-31 14:12] LABS: 6-MMPN 729 (<5700); 6-TGN 139 (235-400)
[2020-08-31 16:42] LABS: Vitamin C 1.5 mg/dL (0.3-2.7)
[2020-09-01 07:47] LABS: Vitamin B6 30.7 ng/mL (2.1-21.7)
[2020-09-01 17:02] LABS: Vitamin A 43 mcg/dL (38-98)
[2020-09-01 17:26] LABS: Alpha-Tocopherol 13.9 mg/L (5.7-19.9); Beta-Gamma Tocopherol 1.2 mg/L (<=4.3)
[2020-09-02 16:41] LABS: Vitamin K1 630 pg/mL (130-1500)
[2020-09-05 09:17] LABS: Vitamin B5 (Pantothenic Acid) 40 ng/mL (<275)
== END 2020-08-26 10:09 | disposition home or self-care (01) ==
LOC: HO.LAB 10:08
PROVIDERS: Student in an Organized Health Care Education/Training Program; PCP Internal Medicine; Visit Provider Internal Medicine Gastroenterology
DX: K74.60 Unspecified cirrhosis of liver (principal); K80.20 Calculus of gallbladder without cholecystitis without obstruction; Z79.899 Other long term (current) drug therapy; M32.9 Systemic lupus erythematosus, unspecified
CPT/HCPCS: 36415; 80053; 81001; 82180; 82306; 82607; 82728; 82746; 84207; 84446; 84590; 84591; 84597; 84630; 85025; 85610; 85652; 99212

== ENCOUNTER 2020-09-05 10:17 | Outpatient (REF) | payer MEDICARE, MEDICAID, SELFPAY ==
[2020-09-05 11:59] LABS: Estimated Average Glucose 143 mg/dL; Hemoglobin A1c % 6.6 %
[2020-09-05 12:07] LABS: Alanine Aminotransferase 20 U/L (0-31); Albumin Level 4.2 g/dL (3.5-5.0); Alkaline Phosphatase 108 U/L (39-117); Anion Gap 14 (12-20); Aspartate Amino Transferase 31 U/L (5-31); Bilirubin Total 0.5 mg/dL (0.0-1.0); Blood Urea Nitrogen 11 mg/dL (9-16); Carbon Dioxide 24 mmol/L (22-29); Chloride 103 mmol/L (96-108); Estimated Glomerular Filt Rate > 60; Glucose Random 153 mg/dL (60-115); Potassium 4.3 mmol/L (3.3-5.1); Sodium 137 mmol/L (135-145); Total Protein 8.7 g/dL (6.5-8.0)
[2020-09-05 12:35] LABS: Free T4 (Free Thyroxine) 0.75 ng/dL (0.71-1.85); Thyroid Stimulating Hormone 2.73 uIU/mL (0.32-4.0)
[2020-09-05 12:38] LABS: Microalbumin Urine < 5.0 mg/L; Total Protein Urine Random < 7 mg/dL (<12)
[2020-09-06 09:11] LABS: Thyroid Peroxidase Antibodies 4 IU/mL (<9)
== END 2020-09-05 10:18 | disposition home or self-care (01) ==
LOC: HO.LAB 10:17
PROVIDERS: PCP Internal Medicine; Visit Provider Internal Medicine
DX: I10 Essential (primary) hypertension (principal); E11.9 Type 2 diabetes mellitus without complications; Z79.4 Long term (current) use of insulin; E03.9 Hypothyroidism, unspecified
CPT/HCPCS: 36415; 80053; 82043; 83036; 84156; 84439; 84443; 86376

== ENCOUNTER 2020-09-15 09:25 | Outpatient (REF) | payer MEDICARE, MEDICAID, SELFPAY ==
--- NOTE | ~2020-09-15 | MR_ITS ---
EXAMINATION: MR ABDOMEN WITHOUT AND WITH CONTRAST CLINICAL INFORMATION: K74.60 - Unspecified cirrhosis of liver COMPARISON: MR abdomen without and with contrast 06/10/2020, CT abdomen and pelvis with IV contrast 01/14/2020. TECHNIQUE: MR abdomen was performed without and with use of 6.5 mL intravenous Gadavist gadolinium contrast. Postcontrast images are performed in multiphase dynamic sequences. Imaging was performed in 3 planes. FINDINGS: LUNG BASES: The visualized lung bases are unremarkable. LIVER, GALLBLADDER, AND BILIARY TREE: The liver is within normal size measuring 18.5 cm in length compared with prior measurement 19.1 cm. There is suggestion of fine nodularity of the anterior liver surface as noted previously. The liver parenchyma is homogeneous in signal. There is no hepatic parenchymal lesion. No arterial enhancing lesions. No delayed enhancing or washout lesions. There is borderline decreased parenchymal signal on out of phase imaging consistent with borderline hepatic steatosis. Patient is status post recent cholecystectomy. There is no intrahepatic or extrahepatic biliary ductal dilatation. PANCREAS: Normal. No pancreatic ductal distention. SPLEEN: Normal in size, 10.4 cm. Prior measurement 10.2 cm. Parenchyma homogeneous. ADRENAL GLANDS: Normal. KIDNEYS AND URETERS: The kidneys are normal in size, shape, and enhance symmetrically. No hydronephrosis. No perinephric stranding. GASTROINTESTINAL TRACT: No bowel obstruction. No ascites or fluid collection. ABDOMINAL WALL: No significant hernia is appreciated. LYMPH NODES: There are stable nodes in the upper abdominal root of mesentery near the gastrohepatic ligament similar to prior studies. The left infrarenal periaortic node is stable. There is no interval lymphadenopathy. VASCULAR: Normal enhancement hepatic veins and portal vein. Portal vein normal in size. Abdominal aorta normal in caliber. OSSEOUS STRUCTURES: Marrow signal normal. MR/MR abdomen wo/w con IMPRESSION: 1. Liver within normal size and homogeneous. No parenchymal lesion. 2. Stable nodes upper abdomen. No interval lymphadenopathy. 3. Status post cholecystectomy since prior exam 06/10/2020. No biliary ductal dilatation.
== END 2020-09-15 09:26 | disposition home or self-care (01) ==
LOC: HO.MRI 09:25
PROVIDERS: Visit Provider Internal Medicine Gastroenterology
DX: K74.60 Unspecified cirrhosis of liver (principal)
CPT/HCPCS: 74183; A9585

== ENCOUNTER 2020-09-20 09:53 | Outpatient (REF) | payer MEDICARE, MEDICAID, SELFPAY ==
[2020-09-20 10:45] LABS: MANUAL DIFF FLAG NO
[2020-09-20 10:50] LABS: Basophils Absolute Auto 0.1 X10*3/uL (0.0-0.2); Eosinophils Absolute Auto 0.2 X10*3/uL (0.0-0.4); Eosinophils Percent Auto 3.2 % (0-4); Hematocrit 38.4 % (37-47); Hemoglobin 11.6 g/dl (12.0-16.0); Imm Gran Abs Auto 0.02 X10*3/uL (0.00-0.03); Imm Gran Pct Auto 0.3 % (0.0-0.4); Lymphocytes Percent Auto 32.7 % (20-40); Mean Corpuscular HGB Conc 30.2 g/dl (31.0-35.0); Mean Corpuscular Hemoglobin 25.7 pg (27.0-33.0); Mean Platelet Volume 10.3 fL (9.4-12.3); Monocytes Absolute Auto 0.7 X10*3/uL (0.1-1.2); Neutrophils Absolute Auto 3.1 X10*3/uL (2.0-8.3); Neutrophils Percent Auto 51.8 % (45-73); Platelet Count 273 X10*3/uL (160-400); Red Blood Count 4.52 X10*6/uL (4.20-5.50); Red Cell Distribution Width 16.3 % (11.0-16.0)
[2020-09-20 11:31] LABS: Erythrocyte Sedimentation Rate 27 MM/HR (0-20)
[2020-09-21 20:57] LABS: Prot Elec - Albumin 4.2 g/dL (3.8-4.8); Prot Elec - Alpha1 0.3 g/dL (0.2-0.3); Prot Elec - Alpha2 0.8 g/dL (0.5-0.9); Prot Elec - Beta 1 0.6 g/dL (0.4-0.6); Prot Elec - Beta 2 0.5 g/dL (0.2-0.5); Prot Elec - Gamma 2.3 g/dL (0.8-1.7); Prot Elec - Total Protein 8.5 g/dL (6.1-8.1)
[2020-09-22 14:16] LABS: IgA 481 mg/dL (47-310); IgG 2547 mg/dL (600-1640); IgM 231 mg/dL (50-300)
== END 2020-09-20 09:54 | disposition home or self-care (01) ==
LOC: HO.LAB 09:53
PROVIDERS: PCP Internal Medicine; Visit Provider Internal Medicine
DX: R77.1 Abnormality of globulin (principal)
CPT/HCPCS: 36415; 82784; 84155; 84165; 85025; 85652; 86140; 86334

== ENCOUNTER 2020-10-04 12:13 | Outpatient (REF) | payer MEDICARE, MEDICAID, SELFPAY ==
[2020-10-04 13:19] LABS: MANUAL DIFF FLAG NO
[2020-10-04 13:31] LABS: Basophils Percent Auto 0.6 % (0-2); Eosinophils Absolute Auto 0.1 X10*3/uL (0.0-0.4); Eosinophils Percent Auto 2.6 % (0-4); Hematocrit 37.5 % (37-47); Hemoglobin 11.3 g/dl (12.0-16.0); Imm Gran Abs Auto 0.01 X10*3/uL (0.00-0.03); Imm Gran Pct Auto 0.2 % (0.0-0.4); Lymphocytes Absolute Auto 1.6 X10*3/uL (1.2-4.9); Lymphocytes Percent Auto 32.3 % (20-40); Mean Corpuscular HGB Conc 30.1 g/dl (31.0-35.0); Mean Corpuscular Hemoglobin 25.5 pg (27.0-33.0); Mean Corpuscular Volume 84.7 fL (80-98); Mean Platelet Volume 9.8 fL (9.4-12.3); Monocytes Absolute Auto 0.5 X10*3/uL (0.1-1.2); Monocytes Percent Auto 10.1 % (2-11); Neutrophils Absolute Auto 2.7 X10*3/uL (2.0-8.3); Neutrophils Percent Auto 54.2 % (45-73); Platelet Count 281 X10*3/uL (160-400); Red Blood Count 4.43 X10*6/uL (4.20-5.50); Red Cell Distribution Width 16.2 % (11.0-16.0); White Blood Count 5.1 X10*3/uL (4.8-10.8)
[2020-10-04 13:45] LABS: Anion Gap 13 (12-20); Blood Urea Nitrogen 9 mg/dL (9-16); Calcium 9.4 mg/dL (8.4-10.2); Carbon Dioxide 27 mmol/L (22-29); Chloride 100 mmol/L (96-108); Estimated Glomerular Filt Rate > 60; Glucose Random 222 mg/dL (60-115); Potassium 4.4 mmol/L (3.3-5.1); Sodium 136 mmol/L (135-145)
[2020-10-04 14:01] LABS: Glucose Urine UA NEG (NEG); Leukocyte Esterase Urine NEG (NEG); Nitrite Urine NEG (NEG); Specific Gravity - Urine 1.015 (1.005-1.025); Urine Blood NEG (NEG); Urine Ketones NEG (NEG); Urine Protein NEG (NEG-TRACE)
[2020-10-04 14:09] LABS: Appearance Urine CLEAR; Color Urine YELLOW
[2020-10-04 14:31] LABS: RBC Urine 0-2 /HPF (0); Squamous Epithelial Cell Urine 2+ /LPF; WBC Urine 0-2 /HPF (0-4)
== END 2020-10-04 12:14 | disposition home or self-care (01) ==
LOC: HO.LAB 12:13
PROVIDERS: Absent Provider Internal Medicine Gastroenterology; PCP Internal Medicine; Visit Provider Student in an Organized Health Care Education/Training Program
DX: M32.9 Systemic lupus erythematosus, unspecified (principal); K74.60 Unspecified cirrhosis of liver
CPT/HCPCS: 36415; 80048; 81001; 85025

== ENCOUNTER 2020-10-13 10:17 | Outpatient (REF) | payer MEDICARE, MEDICAID, SELFPAY ==
[2020-10-14 14:11] LABS: Complement C3 79 mg/dL (83-193)
[2020-10-15 12:21] LABS: Anti DNA DS Antibody 67 IU/mL
== END 2020-10-13 10:18 | disposition home or self-care (01) ==
LOC: HO.LAB 10:17
PROVIDERS: PCP Radiology Diagnostic Radiology; Visit Provider Student in an Organized Health Care Education/Training Program
DX: M32.9 Systemic lupus erythematosus, unspecified (principal); R76.0 Raised antibody titer; Z79.899 Other long term (current) drug therapy
CPT/HCPCS: 36415; 86160; 86225; 99212

== ENCOUNTER 2020-10-28 10:09 | Outpatient (REF) | payer MEDICARE, MEDICAID, SELFPAY ==
[2020-10-28 11:26] LABS: MANUAL DIFF FLAG NO
[2020-10-28 11:31] LABS: Basophils Absolute Auto 0.1 X10*3/uL (0.0-0.2); Basophils Percent Auto 0.8 % (0-2); Eosinophils Absolute Auto 0.1 X10*3/uL (0.0-0.4); Eosinophils Percent Auto 1.5 % (0-4); Hematocrit 37.7 % (37-47); Hemoglobin 11.7 g/dl (12.0-16.0); Imm Gran Abs Auto 0.01 X10*3/uL (0.00-0.03); Imm Gran Pct Auto 0.2 % (0.0-0.4); Lymphocytes Absolute Auto 1.7 X10*3/uL (1.2-4.9); Lymphocytes Percent Auto 25.3 % (20-40); Mean Corpuscular Hemoglobin 26.2 pg (27.0-33.0); Mean Corpuscular Volume 84.3 fL (80-98); Mean Platelet Volume 9.7 fL (9.4-12.3); Monocytes Absolute Auto 0.5 X10*3/uL (0.1-1.2); Neutrophils Absolute Auto 4.2 X10*3/uL (2.0-8.3); Neutrophils Percent Auto 64.2 % (45-73); Platelet Count 241 X10*3/uL (160-400); Red Blood Count 4.47 X10*6/uL (4.20-5.50); Red Cell Distribution Width 16.4 % (11.0-16.0); White Blood Count 6.5 X10*3/uL (4.8-10.8)
[2020-10-28 12:06] LABS: Alanine Aminotransferase 20 U/L (0-31); Albumin Level 4.2 g/dL (3.5-5.0); Alkaline Phosphatase 115 U/L (39-117); Anion Gap 13 (12-20); Aspartate Amino Transferase 27 U/L (5-31); Bilirubin Total 0.6 mg/dL (0.0-1.0); Blood Urea Nitrogen 11 mg/dL (9-16); C Reactive Protein 0.23 mg/dL (< or = 0.50); Calcium 9.4 mg/dL (8.4-10.2); Carbon Dioxide 24 mmol/L (22-29); Chloride 102 mmol/L (96-108); Estimated Glomerular Filt Rate > 60; Glucose Random 156 mg/dL (60-115); Potassium 4.1 mmol/L (3.3-5.1); Sodium 135 mmol/L (135-145); Total Protein 8.6 g/dL (6.5-8.0)
[2020-10-28 12:27] LABS: Ferritin 12 ng/mL (10-250); Vitamin D 25-OH Total 35.3 ng/mL (>30)
[2020-10-28 13:59] LABS: Folate > 20.0 ng/mL (> or = 4.0); Vitamin B12 683 pg/mL (200-900)
[2020-11-01 06:17] LABS: Zinc 65 mcg/dL (60-130)
[2020-11-02 10:26] LABS: Vitamin B5 (Pantothenic Acid) 77 ng/mL (<275)
[2020-11-02 14:27] LABS: Vitamin C 1.1 mg/dL (0.3-2.7)
[2020-11-02 19:47] LABS: Vitamin A 43 mcg/dL (38-98); Vitamin B6 35.9 ng/mL (2.1-21.7)
[2020-11-02 19:47] LABS: Beta-Gamma Tocopherol <1.0 mg/L (<=4.3)
[2020-11-03 13:32] LABS: Vitamin K1 434 pg/mL (130-1500)
[2020-11-04 13:52] LABS: Nicotinamide 28 ng/mL; Vit B3 - Nicotinic Acid <20 ng/mL
== END 2020-10-28 10:10 | disposition home or self-care (01) ==
LOC: HO.LAB 10:09
PROVIDERS: PCP Internal Medicine; Visit Provider Internal Medicine Gastroenterology
DX: K74.60 Unspecified cirrhosis of liver (principal); K80.20 Calculus of gallbladder without cholecystitis without obstruction; K75.81 Nonalcoholic steatohepatitis (NASH)
CPT/HCPCS: 36415; 80053; 81003; 82180; 82306; 82607; 82728; 82746; 84207; 84446; 84590; 84591; 84597; 84630; 85025; 86140; Q3014

== ENCOUNTER 2020-11-08 10:27 | Outpatient (REF) | payer MEDICARE, MEDICAID, SELFPAY ==
--- NOTE | ~2020-11-08 | MM_ITS ---
EXAMINATION: MM SCREENING DIGITAL BREAST TOMOSYNTHESIS, BILATERAL CLINICAL INFORMATION: Screening. Asymptomatic. The lifetime risk of breast cancer based on the Tyrer-Cuzick Model is 5%. COMPARISON: Mammography: 07/16/2019, 04/22/2018, 11/28/2016 TECHNIQUE: Digital breast tomosynthesis is performed in both the craniocaudal and mediolateral oblique views along with computer-aided detection (CAD). Synthesized 2D images are generated from the tomosynthesis. FINDINGS: There are scattered areas of fibroglandular density (ACR BI-RADS breast composition Category b). Parenchymal pattern is similar to prior studies. There are scattered parenchymal and nodular asymmetries similar to prior exams. No developing density. No interval significant mass or architectural abnormality. Left breast has new grouped relatively coarse calcifications central 9:00 position mid depth. Patient will be recalled to further characterize with magnification views. The right breast calcifications are unremarkable. MM/MM tomosynthesis screening BI IMPRESSION: 1. Left: New grouped relatively coarse calcifications central 9:00 mid depth. 2. Right: No mammographic evidence of malignancy. ASSESSMENT: BI-RADS 0: Incomplete - Need Additional Imaging Evaluation RECOMMENDATION: 1. Additional views of the left breast (magnification CC, magnification LM). 2. Radiology department staff will contact the patient for additional imaging. This patient's information was entered into a reminder system with a target due date for their next mammogram.
== END 2020-11-08 10:28 | disposition home or self-care (01) ==
LOC: HO.MAMMO 10:27
PROVIDERS: PCP Internal Medicine; Visit Provider Internal Medicine
DX: Z12.31 Encounter for screening mammogram for malignant neoplasm of breast (principal)
CPT/HCPCS: 77063; 77067

== ENCOUNTER 2020-11-15 08:53 | Outpatient (REF) | payer MEDICARE, MEDICAID, SELFPAY ==
--- NOTE | ~2020-11-15 | MM_ITS ---
EXAMINATION: MM DIAGNOSTIC DIGITAL MAMMOGRAPHY, LEFT CLINICAL INFORMATION: Recall from screening for new grouped relatively coarse calcifications central 9:00 position mid depth. TC score 5%. COMPARISON: Mammography: 11/08/2020, 07/16/2019 TECHNIQUE: Digital mammography is performed in the following views: Magnification CC, magnification LM. FINDINGS: There are scattered areas of fibroglandular density (ACR BI-RADS breast composition Category b). The additional views demonstrate coarse calcifications central 10:30 position which are arranged circumferentially suggesting probable early calcification degenerating fibroadenoma. Left breast will be reassessed again with diagnostic mammography to include magnification views in 6 months. Results are discussed with the patient at time of visit. 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 ASSESSMENT: BI-RADS 3: Probably Benign RECOMMENDATION: Diagnostic left mammography in 6 months. This patient's information was entered into a reminder system with a target due date for their next mammogram.
== END 2020-11-15 08:54 | disposition home or self-care (01) ==
LOC: HO.MAMMO 08:53
PROVIDERS: Visit Provider Internal Medicine
DX: R92.1 Mammographic calcification found on diagnostic imaging of breast (principal)
CPT/HCPCS: 77065

== ENCOUNTER 2020-12-02 10:57 | Outpatient (REF) | payer MEDICARE, MEDICAID, SELFPAY ==
[2020-12-02 12:55] LABS: Alanine Aminotransferase 17 U/L (0-31); Albumin Level 3.8 g/dL (3.5-5.0); Alkaline Phosphatase 111 U/L (39-117); Anion Gap 15 (12-20); Aspartate Amino Transferase 23 U/L (5-31); Bilirubin Total 0.2 mg/dL (0.0-1.0); Blood Urea Nitrogen 10 mg/dL (9-16); C Reactive Protein 0.44 mg/dL (< or = 0.50); Calcium 9.2 mg/dL (8.4-10.2); Carbon Dioxide 23 mmol/L (22-29); Chloride 103 mmol/L (96-108); Estimated Glomerular Filt Rate 52; Glucose Random 221 mg/dL (60-115); Potassium 4.1 mmol/L (3.3-5.1); Sodium 137 mmol/L (135-145)
[2020-12-02 12:59] LABS: Glucose Urine UA >=1000 MG/DL (NEG); Leukocyte Esterase Urine NEG (NEG); Nitrite Urine NEG (NEG); Specific Gravity - Urine <= 1.005 (1.005-1.025); Urine Blood NEG (NEG); Urine Ketones NEG (NEG); Urine Protein NEG (NEG-TRACE)
[2020-12-02 13:01] LABS: Appearance Urine CLEAR; Color Urine YELLOW
[2020-12-02 13:30] LABS: Erythrocyte Sedimentation Rate 25 MM/HR (0-20)
[2020-12-02 13:35] LABS: RBC Urine 0 /HPF (0); WBC Urine 0 /HPF (0-4)
[2020-12-03 14:42] LABS: Anti DNA DS Antibody 75 IU/mL
[2020-12-05 11:37] LABS: Complement C3 64 mg/dL (83-193)
== END 2020-12-02 10:58 | disposition home or self-care (01) ==
LOC: HO.LAB 10:57
PROVIDERS: PCP Internal Medicine; Visit Provider Student in an Organized Health Care Education/Training Program
DX: M32.9 Systemic lupus erythematosus, unspecified (principal); R76.0 Raised antibody titer
CPT/HCPCS: 36415; 80053; 81001; 85652; 86140; 86160; 86225; 99212

== ENCOUNTER 2020-12-28 02:12 | Emergency (ER) | payer MEDICARE, MEDICAID, SELFPAY ==
--- NOTE | ~2020-12-28 | CT_ITS ---
EXAMINATION: CT HEAD WITHOUT CONTRAST CLINICAL INFORMATION: Left arm weakness COMPARISON: None TECHNIQUE: Contiguous axial imaging was performed from the skull base to vertex without intravenous administration of contrast. This CT examination was performed using dose optimization techniques as appropriate, variously including the following: *Automated exposure control *Adjustment of mA and/or kV according to patient size (this includes techniques or standardized protocols for targeted exams where dose is matched to indication/reason for exam; i.e. extremities or head) *Use of iterative reconstruction technique DLP: 625 mGy-cm FINDINGS: There is no evidence of acute intracranial hemorrhage or territorial infarction. No abnormal mass effect or midline shift is seen. Rey to white matter differentiation is well preserved. No extra-axial fluid collections are identified. The ventricles are normal in size. There is no abnormal attenuation within the brain parenchyma. The osseous structures and soft tissues are normal. The mastoid air cells and visualized portions of the paranasal sinuses are well aerated. CT/CT head/brain wo con IMPRESSION: No acute intracranial pathology.
--- NOTE | ~2020-12-28 | CT_ITS ---
EXAMINATION: CT ANGIOGRAM CHEST CLINICAL INFORMATION: Shortness of breath. Elevated d-dimer. COMPARISON: 07/09/2017 TECHNIQUE: Multiple axial images were obtained through the chest after the administration of 100 mL of Omnipaque 350 intravenous contrast. Extensive vascular post-processing including two-dimensional and three-dimensional reformatted images were created and reviewed on an independent workstation. This CT examination was performed using dose optimization techniques as appropriate, variously including the following: *Automated exposure control *Adjustment of mA and/or kV according to patient size (this includes techniques or standardized protocols for targeted exams where dose is matched to indication/reason for exam; i.e. extremities or head) *Use of iterative reconstruction technique DLP: 290 mGy-cm FINDINGS: PULMONARY ARTERIES: No pulmonary embolism. AORTA: No aortic aneurysm or dissection. MEDIASTINUM/TEODORA: Normal heart size. Coronary calcifications. No pericardial effusion. Stable mildly prominent subcarinal lymph node. Also stable is a mildly prominent pretracheal lymph node. LUNGS/PLEURA: No suspicious pulmonary nodules, masses, consolidation or evidence of pneumonitis. Mild diffuse bronchial wall thickening without bronchiectasis. No pleural effusion or pneumothorax. CHEST WALL/AXILLA: Unremarkable. IMAGED ABDOMEN: Nodular surface contour with prominent lateral segment and caudate suggestive of cirrhosis. Cholecystectomy. BONES: No acute or suspicious osseous abnormalities. CT/CT angio chest IMPRESSION: No pulmonary embolism. No aortic aneurysm or dissection. Coronary calcifications. Mild bronchial wall thickening suggestive of bronchitis or asthma.
[2020-12-28 02:40] VITALS: BP 140/69; PULSE 79; RESP 18; TEMP 36.2; O2SAT 100; BMI 26.4
--- NOTE | 2020-12-28 02:50 | ED.EXTPRO ---
HPI - Extremity Problem General Chief complaint: Extremity Problem Stated complaint: L Arm Numbness Time Seen by Provider: 12/28/20 02:49 Source: patient Mode of arrival: ambulatory Limitations: no limitations History of Present Illness HPI Narrative: Patient with history of antiphospholipid syndrome not on any blood thinner was playing bingo today all of a sudden she noticed her left arm began to hurt around 1900 and just 2 hours prior to arrival week noticed that right arm became frozen and numb patient also felt slight shortness of breath no chest pain no headache after arrival in the ED patient felt better and then a again started feeling pain in the left forearm swelling of the forearm no history of blood clots. Patient take aspirin patient also complaining of pain in the left upper back with history of fibromyalgia Related Data Home Medications Medication Instructions Recorded Confirmed glipizide 10 mg tablet 10 mg PO DAILY 05/17/20 12/05/20 lisinopril 2.5 mg tablet 2.5 mg PO DAILY 05/17/20 12/05/20 metformin 500 mg tablet 500 mg PO BID 05/17/20 12/05/20 albuterol sulfate 90 mcg/actuation 90 mcg INHALATION BID PRN 06/06/20 12/05/20 aerosol inhaler fluticasone propionate 50 50 mcg INTRANASAL DAILY PRN 06/06/20 12/05/20 mcg/actuation nasal spray,suspension loratadine 10 mg tablet 10 mg PO DAILY PRN 06/07/20 12/05/20 lorazepam 0.5 mg tablet 0.5 mg PO QID PRN 06/07/20 12/05/20 ondansetron 4 mg disintegrating 4 mg PO Q6-8H PRN 06/07/20 12/05/20 tablet oxycodone 5 mg tablet 5 mg PO Q4-6H PRN 06/07/20 12/05/20 cholecalciferol (vitamin D3) 25 25 mcg PO DAILY 06/10/20 12/05/20 mcg (1,000 unit) capsule zolpidem 10 mg tablet (Ambien) 10 mg PO BEDTIME PRN 06/10/20 12/05/20 empagliflozin 25 mg tablet 25 mg PO DAILY 06/13/20 12/05/20 (Jardiance) alcohol swabs pad TOPICAL 08/26/20 08/26/20 lorazepam 0.5 tab PO DAILY PRN 12/05/20 12/05/20 nortriptyline 10 mg PO DAILY PRN 12/05/20 12/05/20 Previous Rx's Medication Instructions Recorded walker #1 ea 05/08/20 azathioprine 50 mg tablet (Imuran) 50 mg PO DAILY #60 tab 06/06/20 simethicone 125 mg capsule (Gas 125 mg PO BID-QID PRN #20 cap 06/27/20 Relief (simethicone)) omeprazole 40 mg capsule,delayed 40 mg PO DAILY 30 Days #30 cap 09/15/20 release vitamin A 10,000 unit capsule 1 cap PO DAILY #30 cap 09/15/20 prednisone 5 mg tablet 5 mg PO DAILY #30 tab 10/13/20 methylnaltrexone 150 mg tablet 450 mg PO DAILY 30 Days #90 tab 12/20/20 aspirin 81 mg tablet,delayed 81 mg PO DAILY #30 tab 12/27/20 release Allergies Allergy/AdvReac Type Severity Reaction Status Date / Time duloxetine [From CYMBALTA] Allergy Intermediate SHAKINESS Verified 12/28/20 02:40 Review of Systems Review of Systems: Yes all other systems are reviewed and are negative PMF Past Medical History Medical History Abdominal bloating Antiphospholipid antibody syndrome Arthritis Autoimmune hepatitis Cirrhosis Cirrhosis Diabetes POOL (dyspnea on exertion) Fibromyalgia Gallstones High blood pressure Leg pain, right Lupus Nonalcoholic steatohepatitis (SHARMA) Surgical History History of carpal tunnel release History of cataract surgery (2010) History of cervical discectomy (07/2009) History of colonoscopy History of repair of right rotator cuff (08/2011) History of shoulder surgery Hx of cholecystectomy Hx of endoscopy Family History Family History Father History of heart bypass surgery History of diabetes mellitus, type II History of hypertension Mother History of diabetes mellitus, type II Brother History of gout Paternal Uncle History of stomach cancer Social History Social History Household Members: None Alcohol intake: current Alcohol intake frequency: holidays/special occasions only Patient Tobacco Use Status: Never used Tobacco Advance Directives: No Advance Directives Information Provided: No Physical Exam Vital Signs: Vital Signs: Last Vital Signs Temp 97.2 F 12/28/20 02:40 Pulse 70 12/28/20 05:27 Resp 18 12/28/20 05:27 BP 122/65 12/28/20 05:27 Pulse Ox 96 12/28/20 05:27 Body Mass Index 26.4 Appearance: Alert. Oriented X3. No acute distress. Eyes: PERRLA, No Nystagmus ENT: Pharynx normal. Oral Mucosa moist Neck: Normal inspection. Neck supple. CVS: Normal heart rate and rhythm. Pulses normal. Respiratory: No respiratory distress. Equal air entry bilateral, no wheezing/rales/rhonchi Abdomen: Soft and nontender. Bowel sounds are present, no mass palpable, no CVA tenderness Skin: Skin warm and dry. Normal skin color. Normal skin turgor. Extremities: No lower extremity edema. No calf tenderness ,neurovascular intact no swelling of left arm or forearm Neuro: Oriented X 3. No motor deficit. 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 Will do CTA chest to rule out PE as patient complained of mild shortness of breath off and on Patient is tender to Dr. Livingston pending CTA to rule out PE Lab Data Attestation: I reviewed the patient's lab results. Result diagrams: 12/28/20 03:26 12/28/20 03:26 Labs: Lab Results 12/28/20 12/28/20 12/28/20 Range/Units 03:26 03:26 03:26 WBC 6.1 (4.8-10.8) X10*3/uL RBC 4.37 (4.20-5.50) X10*6/uL Hgb 11.5 L (12.0-16.0) g/dl Hct 36.8 L (37-47) % MCV 84.2 (80-98) fL MCH 26.3 L (27.0-33.0) pg MCHC 31.3 (31.0-35.0) g/dl RDW 15.9 (11.0-16.0) % Plt Count 219 (160-400) X10*3/uL MPV 10.5 (9.4-12.3) fL Immature Gran % (Auto) 0.2 (0.0-0.4) % Neut % (Auto) 49.6 (45-73) % Lymph % (Auto) 35.6 (20-40) % Anson % (Auto) 10.9 (2-11) % Eos % (Auto) 3.0 (0-4) % Baso % (Auto) 0.7 (0-2) % Lymph # (Auto) 2.2 (1.2-4.9) X10*3/uL Anson # (Auto) 0.7 (0.1-1.2) X10*3/uL Eos # (Auto) 0.2 (0.0-0.4) X10*3/uL Baso # (Auto) 0.0 (0.0-0.2) X10*3/uL Abs Immat Gran (auto) 0.01 (0.00-0.03) X10*3/uL Absolute Neuts (auto) 3.0 (2.0-8.3) X10*3/uL Absolute Nucleated RBC 0.000 (0.0-0.012) X10*3/uL Nucleated RBC % (auto) 0.0 (0.0-0.2) /100WBC PT 11.0 (9.9-13.0) SEC INR 1.0 (0.9-1.1) D-Dimer 355 NG/ML Sodium 138 (135-145) mmol/L Potassium 4.8 (3.3-5.1) mmol/L Chloride 104 (96-108) mmol/L Carbon Dioxide 22 (22-29) mmol/L Anion Gap 17 (12-20) BUN 11 (9-16) mg/dL Creatinine 0.81 (0.5-1.4) mg/dL Estim Creat Clear Calc 65.5 Estimated GFR > 60 Random Glucose 154 H (60-115) mg/dL Calcium 8.9 (8.4-10.2) mg/dL Troponin I High Sens (<3.5-17.0) ng/L 12/28/20 Range/Units 03:26 WBC (4.8-10.8) X10*3/uL RBC (4.20-5.50) X10*6/uL Hgb (12.0-16.0) g/dl Hct (37-47) % MCV (80-98) fL MCH (27.0-33.0) pg MCHC (31.0-35.0) g/dl RDW (11.0-16.0) % Plt Count (160-400) X10*3/uL MPV (9.4-12.3) fL Immature Gran % (Auto) (0.0-0.4) % Neut % (Auto) (45-73) % Lymph % (Auto) (20-40) % Anson % (Auto) (2-11) % Eos % (Auto) (0-4) % Baso % (Auto) (0-2) % Lymph # (Auto) (1.2-4.9) X10*3/uL Anson # (Auto) (0.1-1.2) X10*3/uL Eos # (Auto) (0.0-0.4) X10*3/uL Baso # (Auto) (0.0-0.2) X10*3/uL Abs Immat Gran (auto) (0.00-0.03) X10*3/uL Absolute Neuts (auto) (2.0-8.3) X10*3/uL Absolute Nucleated RBC (0.0-0.012) X10*3/uL Nucleated RBC % (auto) (0.0-0.2) /100WBC PT (9.9-13.0) SEC INR (0.9-1.1) D-Dimer NG/ML Sodium (135-145) mmol/L Potassium (3.3-5.1) mmol/L Chloride (96-108) mmol/L Carbon Dioxide (22-29) mmol/L Anion Gap (12-20) BUN (9-16) mg/dL Creatinine (0.5-1.4) mg/dL Estim Creat Clear Calc Estimated GFR Random Glucose (60-115) mg/dL Calcium (8.4-10.2) mg/dL Troponin I High Sens < 3.5 (<3.5-17.0) ng/L ECG Data Attestation EKG: I personally reviewed and interpreted this ECG as follows: Interpretation: Normal sinus rhythm heart rate 74 beats per minute normal intervals normal axis no acute ischemic changes impression normal EKG Discharge Plan Discharge Prescriptions: No Action azathioprine [Imuran] 50 mg tablet 50 mg PO DAILY Qty: 60 RF: 3 simethicone [Gas Relief (simethicone)] 125 mg capsule 125 mg PO BID-QID PRN (Reason: abdominal distention) Qty: 20 RF: 0 omeprazole 40 mg capsule,delayed release(DR/EC) 40 mg PO DAILY 30 Days Qty: 30 RF: 2 vitamin A 10,000 unit capsule 1 cap PO DAILY Qty: 30 RF: 2 methylnaltrexone 150 mg tablet 450 mg PO DAILY 30 Days Qty: 90 RF: 3 aspirin 81 mg tablet,delayed release (DR/EC) 81 mg PO DAILY Qty: 30 RF: 5 lorazepam 0.5 mg tablet 0.5 mg PO QID PRN (Reason: Anxiety) RF: 0 ondansetron 4 mg tablet,disintegrating 4 mg PO Q6-8H PRN (Reason: Nausea) RF: 0 loratadine 10 mg Tablet 10 mg PO DAILY PRN (Reason: Allergy Symptoms) RF: 0 oxycodone 5 mg tablet 5 mg PO Q4-6H PRN (Reason: Pain) RF: 0 lorazepam 0.5 tab PO DAILY PRN (Reason: Anxiety) RF: 0 nortriptyline 10 mg PO DAILY PRN (Reason: Insomnia) RF: 0 (DME) walker Misc See Rx Instructions .ROUTE .MEDSUPPLY Qty: 1 RF: 0 Jardiance 25 mg Tablet 25 mg PO DAILY RF: 0 fluticasone propionate 50 mcg/actuation spray,suspension 50 mcg intranasal DAILY PRN (Reason: Nasal Congestion) RF: 0 albuterol sulfate 90 mcg/actuation HFA aerosol inhaler 90 mcg inhalation BID PRN (Reason: Shortness Of Breath) RF: 0 metformin 500 mg tablet 500 mg PO BID RF: 0 glipizide 10 mg tablet 10 mg PO DAILY RF: 0 lisinopril 2.5 mg tablet 2.5 mg PO DAILY RF: 0 cholecalciferol (vitamin D3) 25 mcg (1,000 unit) capsule 25 mcg PO DAILY RF: 0 zolpidem [Ambien] 10 mg tablet 10 mg PO BEDTIME PRN (Reason: Insomnia) RF: 0 alcohol swabs Pads, Medicated topical RF: 0 prednisone 5 mg tablet 5 mg PO DAILY Qty: 30 RF: 3
--- NOTE | 2020-12-28 03:05 | ECG_ITS ---
Test Reason : SOB Blood Pressure : / mmHG Vent. Rate : 074 BPM Atrial Rate : 074 BPM P-R Int : 184 ms QRS Dur : 074 ms QT Int : 386 ms P-R-T Axes : 058 029 041 degrees QTc Int : 428 ms Normal sinus rhythm Normal ECG When compared with ECG of 17-FEB-2019 14:44, No significant change was found Referred By: Manpreet Arellano Electronically Signed By:Ollie Smith
--- NOTE | 2020-12-28 03:11 | PC.NURSE ---
pt off unit to CT
[2020-12-28 03:31] LABS: MANUAL DIFF FLAG NO
[2020-12-28 03:36] LABS: Basophils Percent Auto 0.7 % (0-2); Eosinophils Absolute Auto 0.2 X10*3/uL (0.0-0.4); Hematocrit 36.8 % (37-47); Hemoglobin 11.5 g/dl (12.0-16.0); Imm Gran Abs Auto 0.01 X10*3/uL (0.00-0.03); Imm Gran Pct Auto 0.2 % (0.0-0.4); Lymphocytes Absolute Auto 2.2 X10*3/uL (1.2-4.9); Lymphocytes Percent Auto 35.6 % (20-40); Mean Corpuscular HGB Conc 31.3 g/dl (31.0-35.0); Mean Corpuscular Hemoglobin 26.3 pg (27.0-33.0); Mean Corpuscular Volume 84.2 fL (80-98); Mean Platelet Volume 10.5 fL (9.4-12.3); Monocytes Absolute Auto 0.7 X10*3/uL (0.1-1.2); Monocytes Percent Auto 10.9 % (2-11); Neutrophils Percent Auto 49.6 % (45-73); Platelet Count 219 X10*3/uL (160-400); Red Blood Count 4.37 X10*6/uL (4.20-5.50); Red Cell Distribution Width 15.9 % (11.0-16.0); White Blood Count 6.1 X10*3/uL (4.8-10.8)
[2020-12-28 03:44] LABS: D Dimer 355 NG/ML
[2020-12-28 04:01] LABS: Anion Gap 17 (12-20); Blood Urea Nitrogen 11 mg/dL (9-16); Calcium 8.9 mg/dL (8.4-10.2); Carbon Dioxide 22 mmol/L (22-29); Chloride 104 mmol/L (96-108); Creatinine Clr Calc Pharmacy 65.5; Estimated Glomerular Filt Rate > 60; Glucose Random 154 mg/dL (60-115); Potassium 4.8 mmol/L (3.3-5.1); Sodium 138 mmol/L (135-145); Troponin-I High Sensitivity < 3.5 ng/L (<3.5-17.0)
[2020-12-28 05:27] VITALS: BP 122/65; PULSE 70; RESP 18; O2SAT 96
[2020-12-28] MEDS: iohexoL 350 MG/ML 100 ML INFUS..BTL 65 ML IV (06:37)
[2020-12-28 08:00] VITALS: BP 127/61; PULSE 69; RESP 18
[2020-12-28] MEDS: Ketorolac Tromethamine 15 MG/ML VIAL 30 MG IVPUSH (09:35)
== END 2020-12-28 09:43 | disposition home or self-care (01) ==
PROVIDERS: Emergency Provider Internal Medicine; PCP Internal Medicine
DX: M79.602 Pain in left arm (principal); E11.9 Type 2 diabetes mellitus without complications; I10 Essential (primary) hypertension; M79.7 Fibromyalgia; R06.02 Shortness of breath; D68.61 Antiphospholipid syndrome; Z79.82 Long term (current) use of aspirin; Z79.899 Other long term (current) drug therapy
CPT/HCPCS: 36415; 70450; 71275; 80048; 84484; 85025; 85379; 85610; 93005; 96374; 99284; J1885; Q9967

== ENCOUNTER 2021-01-17 09:41 | Outpatient (REF) | payer MEDICARE, MEDICAID, SELFPAY ==
[2021-01-17 10:50] LABS: MANUAL DIFF FLAG NO
[2021-01-17 11:00] LABS: Basophils Percent Auto 0.8 % (0-2); Eosinophils Absolute Auto 0.1 X10*3/uL (0.0-0.4); Eosinophils Percent Auto 2.1 % (0-4); Hematocrit 39.3 % (37-47); Imm Gran Abs Auto 0.02 X10*3/uL (0.00-0.03); Imm Gran Pct Auto 0.4 % (0.0-0.4); Lymphocytes Absolute Auto 1.4 X10*3/uL (1.2-4.9); Lymphocytes Percent Auto 25.6 % (20-40); Mean Corpuscular HGB Conc 30.5 g/dl (31.0-35.0); Mean Corpuscular Hemoglobin 25.8 pg (27.0-33.0); Mean Corpuscular Volume 84.5 fL (80-98); Mean Platelet Volume 10.4 fL (9.4-12.3); Monocytes Absolute Auto 0.5 X10*3/uL (0.1-1.2); Neutrophils Absolute Auto 3.3 X10*3/uL (2.0-8.3); Neutrophils Percent Auto 61.1 % (45-73); Platelet Count 249 X10*3/uL (160-400); Red Blood Count 4.65 X10*6/uL (4.20-5.50); Red Cell Distribution Width 15.7 % (11.0-16.0); White Blood Count 5.3 X10*3/uL (4.8-10.8)
[2021-01-17 11:08] LABS: Estimated Average Glucose 166 mg/dL; Hemoglobin A1c % 7.4 %
[2021-01-17 11:18] LABS: Glucose Urine UA >=1000 MG/DL (NEG); Leukocyte Esterase Urine NEG (NEG); Nitrite Urine NEG (NEG); PH 5.5 (5.0-8.0); Specific Gravity - Urine 1.015 (1.005-1.025); Urine Blood NEG (NEG); Urine Ketones 5 MG/DL (NEG); Urine Protein NEG (NEG-TRACE)
[2021-01-17 11:25] LABS: Appearance Urine CLEAR; Color Urine YELLOW
[2021-01-17 11:39] LABS: Erythrocyte Sedimentation Rate 29 MM/HR (0-20)
[2021-01-17 11:46] LABS: WBC Urine 0-2 /HPF (0-4)
[2021-01-17 11:47] LABS: RBC Urine 0 /HPF (0); Squamous Epithelial Cell Urine 1+ /LPF
[2021-01-17 11:49] LABS: Alanine Aminotransferase 34 U/L (0-31); Albumin Level 4.1 g/dL (3.5-5.0); Alkaline Phosphatase 112 U/L (39-117); Anion Gap 14 (12-20); Aspartate Amino Transferase 36 U/L (5-31); Bilirubin Total 0.6 mg/dL (0.0-1.0); Blood Urea Nitrogen 11 mg/dL (9-16); Calcium 9.5 mg/dL (8.4-10.2); Carbon Dioxide 24 mmol/L (22-29); Chloride 105 mmol/L (96-108); Cholesterol 193 mg/dL; Estimated Glomerular Filt Rate > 60; Glucose Fasting 167 mg/dL (60-99); HDL Cholesterol 47 mg/dL; Iron 43 mcg/dL (30-160); LDL Cholesterol Calculated 118 mg/dl; Potassium 4.4 mmol/L (3.3-5.1); Sodium 139 mmol/L (135-145); Total Protein 8.6 g/dL (6.5-8.0); Triglycerides 144 mg/dL
[2021-01-17 11:55] LABS: Alanine Aminotransferase 33 U/L (0-31); Albumin Level 4.1 g/dL (3.5-5.0); Alkaline Phosphatase 114 U/L (39-117); Anion Gap 13 (12-20); Aspartate Amino Transferase 34 U/L (5-31); Bilirubin Total 0.5 mg/dL (0.0-1.0); Blood Urea Nitrogen 11 mg/dL (9-16); Calcium 9.3 mg/dL (8.4-10.2); Carbon Dioxide 25 mmol/L (22-29); Chloride 105 mmol/L (96-108); Estimated Glomerular Filt Rate > 60; Glucose Random 168 mg/dL (60-115); Potassium 4.5 mmol/L (3.3-5.1); Sodium 138 mmol/L (135-145); Total Protein 8.4 g/dL (6.5-8.0)
[2021-01-17 12:00] LABS: Microalbumin Urine < 5.0 mg/L
[2021-01-17 12:02] LABS: Ferritin 11 ng/mL (10-250); Thyroid Stimulating Hormone 1.63 uIU/mL (0.32-4.0)
[2021-01-17 12:10] LABS: Vitamin B12 778 pg/mL (200-900)
[2021-01-18 11:56] LABS: Complement C3 87 mg/dL (83-193)
[2021-01-18 14:57] LABS: Percent Iron Saturation 10 % (15-50); Total Iron Binding Capacity 422 mcg/dL (228-428); Unsaturated Iron Binding 379 ug/dL
[2021-01-19 11:37] LABS: Anti DNA DS Antibody 97 IU/mL
== END 2021-01-17 09:42 | disposition home or self-care (01) ==
LOC: HO.LAB 09:41
PROVIDERS: Absent Provider Internal Medicine; PCP Internal Medicine; Visit Provider Student in an Organized Health Care Education/Training Program
DX: M32.9 Systemic lupus erythematosus, unspecified (principal); I10 Essential (primary) hypertension; E11.9 Type 2 diabetes mellitus without complications; K21.9 Gastro-esophageal reflux disease without esophagitis; K74.60 Unspecified cirrhosis of liver; R53.81 Other malaise; R53.83 Other fatigue; D64.9 Anemia, unspecified; Z79.4 Long term (current) use of insulin
CPT/HCPCS: 36415; 80053; 80061; 81001; 81003; 82043; 82607; 82728; 83036; 83540; 84439; 84443; 85025; 85652; 86140; 86160; 86225; 87086

== ENCOUNTER 2021-02-20 06:17 | Outpatient (REF) | payer MEDICARE, MEDICAID, SELFPAY ==
--- NOTE | ~2021-02-20 | XR_ITS ---
EXAMINATION: AP KNEE STANDING, BILATERAL XR KNEE, RIGHT CLINICAL INFORMATION: Pain. COMPARISON: None TECHNIQUE: AP bilateral knees standing. Right knee 2 views. FINDINGS: AP Bilateral Knee: There is mild loss of medial and lateral compartment joint space of both knees without bony erosive changes or loose bodies. 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 Right Knee: Lateral and sunrise views reveal no visible fracture or bony abnormality. There is mild superior patellar spurring. There is no abnormal suprapatellar joint effusion. There is an ossified bone fragment superior to the anterior tibial eminence likely old injury as well. XR/XR knee RT 2V IMPRESSION: Mild degenerative changes medial and lateral compartment of both knees without any visible acute fracture or dislocation. Small bone fragment adjacent to the medial femoral condyle and superior to the anterior tibial tubercle right knee likely related to old injury.
--- NOTE | ~2021-02-20 | XR_ITS ---
EXAMINATION: AP KNEE STANDING, BILATERAL XR KNEE, RIGHT CLINICAL INFORMATION: Pain. COMPARISON: None TECHNIQUE: AP bilateral knees standing. Right knee 2 views. FINDINGS: AP Bilateral Knee: There is mild loss of medial and lateral compartment joint space of both knees without bony erosive changes or loose bodies. 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 Right Knee: Lateral and sunrise views reveal no visible fracture or bony abnormality. There is mild superior patellar spurring. There is no abnormal suprapatellar joint effusion. There is an ossified bone fragment superior to the anterior tibial eminence likely old injury as well. XR/XR knee standing BI IMPRESSION: Mild degenerative changes medial and lateral compartment of both knees without any visible acute fracture or dislocation. Small bone fragment adjacent to the medial femoral condyle and superior to the anterior tibial tubercle right knee likely related to old injury.
== END 2021-02-20 06:18 | disposition home or self-care (01) ==
LOC: HO.HOSX 06:17
PROVIDERS: Visit Provider Orthopaedic Surgery
DX: M17.11 Unilateral primary osteoarthritis, right knee (principal); E11.9 Type 2 diabetes mellitus without complications
CPT/HCPCS: 20610; 73560; 73565; 99212; J1100

== ENCOUNTER 2021-03-02 09:43 | Outpatient (REF) | payer MEDICARE, MEDICAID, SELFPAY ==
[2021-03-02 10:07] LABS: MANUAL DIFF FLAG NO
[2021-03-02 10:39] LABS: Basophils Absolute Auto 0.1 X10*3/uL (0.0-0.2); Basophils Percent Auto 0.9 % (0-2); Eosinophils Absolute Auto 0.2 X10*3/uL (0.0-0.4); Eosinophils Percent Auto 2.7 % (0-4); Hematocrit 38.4 % (37-47); Hemoglobin 11.9 g/dl (12.0-16.0); Imm Gran Abs Auto 0.01 X10*3/uL (0.00-0.03); Imm Gran Pct Auto 0.2 % (0.0-0.4); Lymphocytes Absolute Auto 1.8 X10*3/uL (1.2-4.9); Lymphocytes Percent Auto 30.1 % (20-40); Mean Corpuscular Hemoglobin 26.4 pg (27.0-33.0); Mean Corpuscular Volume 85.3 fL (80-98); Mean Platelet Volume 10.5 fL (9.4-12.3); Monocytes Absolute Auto 0.7 X10*3/uL (0.1-1.2); Monocytes Percent Auto 12.1 % (2-11); Neutrophils Absolute Auto 3.2 X10*3/uL (2.0-8.3); Platelet Count 233 X10*3/uL (160-400); Red Cell Distribution Width 15.6 % (11.0-16.0); White Blood Count 5.9 X10*3/uL (4.8-10.8)
[2021-03-02 11:46] LABS: Appearance Urine CLEAR; Color Urine YELLOW; Glucose Urine UA >=1000 MG/DL (NEG); Leukocyte Esterase Urine NEG (NEG); Nitrite Urine NEG (NEG); Urine Blood NEG (NEG); Urine Ketones NEG (NEG); Urine Protein NEG (NEG-TRACE)
[2021-03-02 11:58] LABS: Mucus Urine TRACE /LPF; RBC Urine 0 /HPF (0); Squamous Epithelial Cell Urine 1+ /LPF; WBC Urine 0 /HPF (0-4)
== END 2021-03-02 09:44 | disposition home or self-care (01) ==
LOC: HO.LAB 09:43
PROVIDERS: Student in an Organized Health Care Education/Training Program; PCP Internal Medicine; Visit Provider Internal Medicine Gastroenterology
DX: M32.9 Systemic lupus erythematosus, unspecified (principal)
CPT/HCPCS: 36415; 81001; 85025

== ENCOUNTER 2021-03-25 11:57 | Emergency (ER) | payer MEDICARE, MEDICAID, SELFPAY ==
--- NOTE | ~2021-03-25 | XR_ITS ---
EXAMINATION: XR CHEST CLINICAL INFORMATION: Chest pain COMPARISON: CTA chest 12/28/2020 TECHNIQUE: Frontal view of the chest was obtained. FINDINGS: No significant abnormality is noted involving the heart, lungs, mediastinum, bony thorax or soft tissues. XR/XR chest 1V IMPRESSION: Unremarkable examination.
[2021-03-25 12:19] VITALS: BP 130/57; PULSE 81; RESP 16; TEMP 37.1; O2SAT 97; BMI 28.3
--- NOTE | 2021-03-25 14:21 | ECG_ITS ---
Test Reason : CHEST PAIN Blood Pressure : / mmHG Vent. Rate : 073 BPM Atrial Rate : 073 BPM P-R Int : 166 ms QRS Dur : 070 ms QT Int : 376 ms P-R-T Axes : 055 024 043 degrees QTc Int : 414 ms Normal sinus rhythm Normal ECG No significant changes seen Referred By: Hansa Power Electronically Signed By:AMBER ENGLAND MD
--- NOTE | 2021-03-25 14:21 | ED.CHESTPAIN ---
HPI - Chest Pain General Chief Complaint: Chest Pain Stated Complaint: CHEST BURNING Time Seen by Provider: 03/25/21 14:19 Source: patient Mode of arrival: ambulatory Limitations: no limitations History of Present Illness HPI narrative: 60-year-old female came in for evaluation of chest pain with exertion. 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 Patient declined any recent travel, no lower extremity swelling or edema. Patient with past medical history significant for fibromyalgia/lupus. Related Data Home Medications Medication Instructions Recorded Confirmed glipizide 10 mg tablet 10 mg PO DAILY 05/17/20 12/05/20 lisinopril 2.5 mg tablet 2.5 mg PO DAILY 05/17/20 12/05/20 metformin 500 mg tablet 500 mg PO BID 05/17/20 12/05/20 albuterol sulfate 90 mcg/actuation 90 mcg INHALATION BID PRN 06/06/20 12/05/20 aerosol inhaler fluticasone propionate 50 50 mcg INTRANASAL DAILY PRN 06/06/20 12/05/20 mcg/actuation nasal spray,suspension loratadine 10 mg tablet 10 mg PO DAILY PRN 06/07/20 12/05/20 lorazepam 0.5 mg tablet 0.5 mg PO QID PRN 06/07/20 12/05/20 ondansetron 4 mg disintegrating 4 mg PO Q6-8H PRN 06/07/20 12/05/20 tablet oxycodone 5 mg tablet 5 mg PO Q4-6H PRN 06/07/20 12/05/20 cholecalciferol (vitamin D3) 25 25 mcg PO DAILY 06/10/20 12/05/20 mcg (1,000 unit) capsule zolpidem 10 mg tablet (Ambien) 10 mg PO BEDTIME PRN 06/10/20 12/05/20 empagliflozin 25 mg tablet 25 mg PO DAILY 06/13/20 12/05/20 (Jardiance) alcohol swabs pad TOPICAL 08/26/20 08/26/20 lorazepam 0.5 tab PO DAILY PRN 12/05/20 12/05/20 nortriptyline 10 mg PO DAILY PRN 12/05/20 12/05/20 Previous Rx's Medication Instructions Recorded walker #1 ea 05/08/20 azathioprine 50 mg tablet (Imuran) 50 mg PO DAILY #60 tab 06/06/20 simethicone 125 mg capsule (Gas 125 mg PO BID-QID PRN #20 cap 06/27/20 Relief (simethicone)) prednisone 5 mg tablet 5 mg PO DAILY #30 tab 10/13/20 methylnaltrexone 150 mg tablet 450 mg PO DAILY 30 Days #90 tab 12/20/20 aspirin 81 mg tablet,delayed 81 mg PO DAILY #30 tab 12/27/20 release naproxen 500 mg tablet (Naprosyn) 500 mg PO BID #20 tab 12/28/20 vitamin A 10,000 unit capsule 1 cap PO DAILY #30 cap 01/20/21 ferrous sulfate 220 mg (44 mg 220 mg PO DAILY #680 ml 03/15/21 iron)/5 mL oral solution pantoprazole 40 mg tablet,delayed 40 mg PO BID #60 tab 03/24/21 release Allergies Allergy/AdvReac Type Severity Reaction Status Date / Time duloxetine [From CYMBALTA] Allergy Intermediate SHAKINESS Verified 12/28/20 02:40 Review of Systems Review of Systems: All other systems are reviewed and are negative Constitutional: Reports as per HPI and Reports no additional constitutional complaints Eyes: Reports as per HPI and Reports no additional eye complaints Reports system reviewed and no additional complaints, except as documented Cardiovascular: Reports as per HPI and Reports no additional cardiovascular complaints Respiratory: Reports as per HPI and Reports no additional respiratory complaints Gastrointestinal: Reports as per HPI and Reports no additional gastrointestinal complaints Genitourinary: Reports no additional female genitourinary complaints Musculoskeletal: Reports no additional musculoskeletal complaints Skin/Breast: Reports system reviewed and no additional complaints, except as docu Psychiatric: Reports no additional psychiatric complaints Endocrine: Reports no additional endocrine complaints Hematologic/Lymphatic: Reports no additional hematologic/lymphatic complaints Allergic/Immunologic: Reports no additional allergic/immunologic complaints Reports system reviewed and no additional complaints, except as documented and Reports Abnormal speech present COUNT INCLUDES THE [facility] Past Medical History Medical History Abdominal bloating Antiphospholipid antibody syndrome Arthritis Autoimmune hepatitis Cirrhosis Cirrhosis Diabetes POOL (dyspnea on exertion) Fibromyalgia Gallstones High blood pressure Leg pain, right Lupus Nonalcoholic steatohepatitis (SHARMA) Surgical History History of carpal tunnel release History of cataract surgery (2010) History of cervical discectomy (07/2009) History of colonoscopy History of repair of right rotator cuff (08/2011) History of shoulder surgery Hx of cholecystectomy Hx of endoscopy Family History Family History Father History of heart bypass surgery History of diabetes mellitus, type II History of hypertension Mother History of diabetes mellitus, type II Brother History of gout Paternal Uncle History of stomach cancer Social History Social History Household Members: None Alcohol intake: current Alcohol intake frequency: holidays/special occasions only Patient Tobacco Use Status: Never used Tobacco Advance Directives: No Advance Directives Information Provided: No Patient : No Physical Exam Vital Signs: Vital Signs: Last Vital Signs Temp 97.1 F 03/25/21 14:35 Pulse 77 03/25/21 16:13 Resp 12 03/25/21 16:13 BP 115/85 03/25/21 16:13 Pulse Ox 97 03/25/21 16:13 Body Mass Index 28.3 Vital signs have been reviewed as appeared to be correct. Blood pressure normal. Heart rate normal. Respiration rate normal. Temperature normal. Oxygen saturation normal. Appearance: Alert. Oriented X3. No acute distress. Head: Normal external exam. Normocephalic. Atraumatic. No Shipley signs noted. No raccoon eyes noted Eyes: PERRLA. EOMI. Conjunctiva and sclera normal. Eyelids normal. ENT: TM's Normal. Pharynx normal. Uvula midline. Moist mucous membranes. No trismus noted. No drooling noted. No muffled voice noted. Neck: Normal inspection. Neck supple. FROM. No adenopathy. Thyroid Normal. No meningeal signs. No neck mass noted. CVS: Normal heart rate and rhythm. Heart sound normal. No murmurs noted. Pulses normal throughout. Respiratory: No respiratory distress. Painless inspiration. Breath sounds normal. No wheezes/rales/rhonchi noted. Chest wall reproducible mid chest tenderness. No accessory muscle usage noted or decreased air movement noted. Abdomen: Soft and nontender. Bowel sounds normal in all 4 quadrants. No distention noted. No organomegaly noted. No visible injury noted. Back: No CVA tenderness. Full range of motion noted. Skin: Skin warm and dry. Normal skin color. Normal skin turgor. No rashes/lesions/lacerations noted. Extremities: No lower extremity edema. Extremities exhibit normal range of motion. Extremities nontender. Neuro: Oriented X 3. Cranial nerve exam: II-XII are grossly intact No motor deficit. No sensory deficit. Reflexes normal. Course Course Course Narrative: Assessment and plan. 60-year-old female came in for evaluation of chest pain for 4 days, patient had unremarkable high sensitive troponin was unremarkable EKG, patient had a previous evaluation for similar symptoms by aerial tram operator recently and had unremarkable workup. Will discharge the patient to follow-up with aerial tram operator. MDM - Chest Pain Medical Records Data Attestation: I reviewed the patient's medical records. Lab Data Attestation: I reviewed the patient's lab results. Result diagrams: 03/25/21 14:26 03/25/21 16:20 Labs: Lab Results 03/25/21 03/25/21 03/25/21 Range/Units 14:26 14:26 16:20 WBC 5.7 (4.8-10.8) X10*3/uL RBC 4.69 (4.20-5.50) X10*6/uL Hgb 12.5 (12.0-16.0) g/dl Hct 40.0 (37.0-47.0) % MCV 85.3 (80.0-98.0) fL MCH 26.7 L (27.0-33.0) pg MCHC 31.3 (31.0-35.0) g/dl RDW 15.1 (11.0-16.0) % Plt Count 235 (160-400) X10*3/uL MPV 10.0 (9.4-12.3) fL Absolute Nucleated RBC 0.000 (0.0-0.012) X10*3/uL Nucleated RBC % (auto) 0.0 (0.0-0.2) /100WBC Sodium 135 (135-145) mmol/L Potassium 3.9 (3.3-5.1) mmol/L Chloride 101 (96-108) mmol/L Carbon Dioxide 25 (22-29) mmol/L Anion Gap 13 (12-20) BUN 11 (9-16) mg/dL Creatinine 0.84 (0.5-1.4) mg/dL Estim Creat Clear Calc 65.4 Estimated GFR > 60 Random Glucose 142 H (60-115) mg/dL Calcium 9.2 (8.4-10.2) mg/dL Troponin I High Sens < 3.5 (<3.5-17.0) ng/L Imaging Data Chest x-ray: Radiologist's impression: Unremarkable chest x-ray ECG Data ECG #1: Attestation: I personally reviewed and interpreted this ECG as follows: Interpretation: Normal sinus rhythm at 73 beats per minute, normal intervals, normal axis deviation, no ST-T changes. Discharge Plan Discharge Clinical Impression: Acute myofascial pain Patient Disposition: Home, Self-Care Instructions: Chest Pain (ED) Prescriptions: No Action azathioprine [Imuran] 50 mg tablet 50 mg PO DAILY Qty: 60 RF: 3 simethicone [Gas Relief (simethicone)] 125 mg capsule 125 mg PO BID-QID PRN (Reason: abdominal distention) Qty: 20 RF: 0 methylnaltrexone 150 mg tablet 450 mg PO DAILY 30 Days Qty: 90 RF: 3 aspirin 81 mg tablet,delayed release (DR/EC) 81 mg PO DAILY Qty: 30 RF: 5 vitamin A 10,000 unit capsule 1 cap PO DAILY Qty: 30 RF: 2 ferrous sulfate 220 mg (44 mg iron)/5 mL solution 220 mg PO DAILY Qty: 680 RF: 0 pantoprazole 40 mg tablet,delayed release (DR/EC) 40 mg PO BID Qty: 60 RF: 2 lorazepam 0.5 mg tablet 0.5 mg PO QID PRN (Reason: Anxiety) RF: 0 ondansetron 4 mg tablet,disintegrating 4 mg PO Q6-8H PRN (Reason: Nausea) RF: 0 loratadine 10 mg Tablet 10 mg PO DAILY PRN (Reason: Allergy Symptoms) RF: 0 oxycodone 5 mg tablet 5 mg PO Q4-6H PRN (Reason: Pain) RF: 0 lorazepam 0.5 tab PO DAILY PRN (Reason: Anxiety) RF: 0 nortriptyline 10 mg PO DAILY PRN (Reason: Insomnia) RF: 0 naproxen [Naprosyn] 500 mg tablet 500 mg PO BID Qty: 20 RF: 0 (DME) shade Rendon See Rx Instructions .ROUTE .MEDSUPPLY Qty: 1 RF: 0 Jardiance 25 mg Tablet 25 mg PO DAILY RF: 0 fluticasone propionate 50 mcg/actuation spray,suspension 50 mcg intranasal DAILY PRN (Reason: Nasal Congestion) RF: 0 albuterol sulfate 90 mcg/actuation HFA aerosol inhaler 90 mcg inhalation BID PRN (Reason: Shortness Of Breath) RF: 0 metformin 500 mg tablet 500 mg PO BID RF: 0 glipizide 10 mg tablet 10 mg PO DAILY RF: 0 lisinopril 2.5 mg tablet 2.5 mg PO DAILY RF: 0 cholecalciferol (vitamin D3) 25 mcg (1,000 unit) capsule 25 mcg PO DAILY RF: 0 zolpidem [Ambien] 10 mg tablet 10 mg PO BEDTIME PRN (Reason: Insomnia) RF: 0 alcohol swabs Pads, Medicated topical RF: 0 prednisone 5 mg tablet 5 mg PO DAILY Qty: 30 RF: 3 Referrals: Eduardo Garcia MD [Primary Care Provider] - 2 days Ollie Smith MD [Physician] - 2 days
[2021-03-25 14:35] VITALS: BP 122/45; PULSE 73; RESP 13; TEMP 36.2; O2SAT 99
[2021-03-25 14:38] LABS: Hemoglobin 12.5 g/dl (12.0-16.0); Mean Corpuscular HGB Conc 31.3 g/dl (31.0-35.0); Mean Corpuscular Hemoglobin 26.7 pg (27.0-33.0); Mean Corpuscular Volume 85.3 fL (80.0-98.0); Platelet Count 235 X10*3/uL (160-400); Red Blood Count 4.69 X10*6/uL (4.20-5.50); Red Cell Distribution Width 15.1 % (11.0-16.0); White Blood Count 5.7 X10*3/uL (4.8-10.8)
[2021-03-25 14:58] LABS: Troponin-I High Sensitivity < 3.5 ng/L (<3.5-17.0)
[2021-03-25 16:13] VITALS: BP 115/85; PULSE 77; RESP 12; O2SAT 97
[2021-03-25] MEDS: Magnesium Hydrox/Alum Hydrox 30 ML ORAL.SUSP 15 ML PO (16:42)
[2021-03-25 16:44] LABS: Anion Gap 13 (12-20); Blood Urea Nitrogen 11 mg/dL (9-16); Calcium 9.2 mg/dL (8.4-10.2); Carbon Dioxide 25 mmol/L (22-29); Chloride 101 mmol/L (96-108); Creatinine Clr Calc Pharmacy 65.4; Estimated Glomerular Filt Rate > 60; Glucose Random 142 mg/dL (60-115); Potassium 3.9 mmol/L (3.3-5.1); Sodium 135 mmol/L (135-145)
== END 2021-03-25 17:44 | disposition home or self-care (01) ==
PROVIDERS: Emergency Provider Emergency Medicine; PCP Internal Medicine
DX: M79.18 Myalgia, other site (principal); R07.9 Chest pain, unspecified; Z79.899 Other long term (current) drug therapy
CPT/HCPCS: 36415; 71045; 80048; 84484; 85027; 93005; 99283; 99285

== ENCOUNTER 2021-04-05 10:00 | Emergency (ER) | payer MEDICARE, MEDICAID, SELFPAY ==
--- NOTE | 2021-04-05 | ECG_ITS ---
Test Reason : dyspnea Blood Pressure : / mmHG Vent. Rate : 068 BPM Atrial Rate : 068 BPM P-R Int : 172 ms QRS Dur : 068 ms QT Int : 380 ms P-R-T Axes : 059 008 002 degrees QTc Int : 404 ms Normal sinus rhythm Normal ECG When compared with ECG of 25-MAR-2021 14:33, No significant changes seen Referred By: Generic ED Physician Electronically Signed By:AMBER ENGLAND MD
--- NOTE | ~2021-04-05 | XR_ITS ---
EXAMINATION: XR CHEST CLINICAL INFORMATION: Chest pain COMPARISON: March 25, 2021 TECHNIQUE: AP portable view of the chest was obtained. FINDINGS: No significant abnormality is noted involving the heart, lungs, mediastinum, bony thorax or soft tissues. [place] seen within the right humeral head from previous shoulder surgery. XR/XR chest 1V IMPRESSION: No acute disease.
[2021-04-05 10:11] VITALS: BP 139/63; PULSE 67; RESP 15; TEMP 36.7; O2SAT 99; BMI 28.3
--- NOTE | 2021-04-05 11:08 | ED_ITS ---
HPI - General Adult General Chief complaint: Dyspnea Stated complaint: diff breathing, burning pain in chest Time Seen by Provider: 04/05/21 11:01 Source: patient Mode of arrival: ambulatory Limitations: no limitations History of Present Illness HPI narrative: This is a 60 years old female presented to the emergency department with a chief complaint of a burning on the chest, generalized weakness x2 weeks. She states that she is saw the line construction engineer dr Mccann and placed on Prilosec despite she continued to feel the burning Onset (ago): week(s) (2) Location: chest Radiation: non-radiation Severity: moderate Quality: burning Pain Consistency: constant Relieving factors: none Exacerbating factors: none Associated symptoms: denies other symptoms Related Data Home Medications Medication Instructions Recorded Confirmed glipizide 10 mg tablet 10 mg PO DAILY 05/17/20 12/05/20 lisinopril 2.5 mg tablet 2.5 mg PO DAILY 05/17/20 12/05/20 metformin 500 mg tablet 500 mg PO BID 05/17/20 12/05/20 albuterol sulfate 90 mcg/actuation 90 mcg INHALATION BID PRN 06/06/20 12/05/20 aerosol inhaler fluticasone propionate 50 50 mcg INTRANASAL DAILY PRN 06/06/20 12/05/20 mcg/actuation nasal spray,suspension loratadine 10 mg tablet 10 mg PO DAILY PRN 06/07/20 12/05/20 lorazepam 0.5 mg tablet 0.5 mg PO QID PRN 06/07/20 12/05/20 ondansetron 4 mg disintegrating 4 mg PO Q6-8H PRN 06/07/20 12/05/20 tablet oxycodone 5 mg tablet 5 mg PO Q4-6H PRN 06/07/20 12/05/20 cholecalciferol (vitamin D3) 25 25 mcg PO DAILY 06/10/20 12/05/20 mcg (1,000 unit) capsule zolpidem 10 mg tablet (Ambien) 10 mg PO BEDTIME PRN 06/10/20 12/05/20 empagliflozin 25 mg tablet 25 mg PO DAILY 06/13/20 12/05/20 (Jardiance) alcohol swabs pad TOPICAL 08/26/20 08/26/20 lorazepam 0.5 tab PO DAILY PRN 07/12/21 07/12/21 nortriptyline 10 mg PO DAILY PRN 12/05/20 12/05/20 Previous Rx's Medication Instructions Recorded walker #1 ea 05/08/20 azathioprine 50 mg tablet (Imuran) 50 mg PO DAILY #60 tab 06/06/20 simethicone 125 mg capsule (Gas 125 mg PO BID-QID PRN #20 cap 06/27/20 Relief (simethicone)) prednisone 5 mg tablet 5 mg PO DAILY #30 tab 10/13/20 methylnaltrexone 150 mg tablet 450 mg PO DAILY 30 Days #90 tab 12/20/20 aspirin 81 mg tablet,delayed 81 mg PO DAILY #30 tab 12/27/20 release naproxen 500 mg tablet (Naprosyn) 500 mg PO BID #20 tab 12/28/20 vitamin A 10,000 unit capsule 1 cap PO DAILY #30 cap 01/20/21 ferrous sulfate 220 mg (44 mg 220 mg (5 mL) PO DAILY #680 ml 03/15/21 iron)/5 mL oral solution bisacodyl 5 mg tablet,delayed 10 mg PO ONCE 1 Days #2 tab 03/31/21 release (Dulcolax (bisacodyl)) polyethylene glycol 3350 17 238 g PO ONCE 1 Days #238 g 03/31/21 gram/dose oral powder (Miralax) lansoprazole 30 mg capsule,delayed 30 mg PO DAILY #60 cap 04/05/21 release sucralfate 100 mg/mL oral 10 ml PO BID #1000 ml 04/05/21 suspension (Carafate) Allergies Allergy/AdvReac Type Severity Reaction Status Date / Time duloxetine [From CYMBALTA] Allergy Intermediate SHAKINESS Verified 12/28/20 02:40 Review of Systems Review of Systems: Yes all other systems are reviewed and are negative Constitutional: Constitutional: Reports no additional constitutional complaints Eyes: Eyes: Reports no additional eye complaints Cardiovascular: Cardiovascular: Reports no additional cardiovascular complaints Respiratory: Respiratory: Denies hemoptysis, Denies excessive phlegm production, Denies pain on inspiration and Denies pain with cough Gastrointestinal: Gastrointestinal: Reports no additional gastrointestinal complaints [facility] Past Medical History Attestation statement: The following information was validated with the patient. Medical History Abdominal bloating Antiphospholipid antibody syndrome Arthritis Autoimmune hepatitis Cirrhosis Cirrhosis Diabetes POOL (dyspnea on exertion) Fibromyalgia Gallstones High blood pressure Leg pain, right Lupus Nonalcoholic steatohepatitis (SHARMA) Surgical History History of carpal tunnel release History of cataract surgery (2010) History of cervical discectomy (07/2009) History of colonoscopy History of repair of right rotator cuff (08/2011) History of shoulder surgery Hx of cholecystectomy Hx of endoscopy Family History Family History Father History of heart bypass surgery History of diabetes mellitus, type II History of hypertension Mother History of diabetes mellitus, type II Brother History of gout Paternal Uncle History of stomach cancer Social History Social History Household Members: None Alcohol intake: never Patient Tobacco Use Status: Never used Tobacco Use of substances other than those prescribed or required for medical reasons: No Advance Directives: No Advance Directives Information Provided: No Patient : No Physical Exam Vital Signs: Vital Signs: Last Vital Signs Temp 98.6 F 04/05/21 11:19 Pulse 74 04/05/21 11:19 Resp 18 04/05/21 11:19 BP 134/64 04/05/21 11:19 Pulse Ox 96 04/05/21 11:19 Body Mass Index 28.3 Const: General: cooperative Nutritional Appearance: average body habitus Orientation/consciousness: oriented to person and patient oriented x3 HENMT: Other: Examination the head eyes ears nose and throat is within normal limits Neck: Other: Neck is supple shows good range of motion Chest: Chest palpation & inspection: normal inspection of the chest Resp: Other: Lungs are clear during auscultation no rales no wheezing Cardio: Other: Heart exam is shows a regular rate and rhythm no gallop GI: Other: Abdomen is soft nontender no guarding no rebound Skin: Other: Skin is normal no rash Neuro: General: oriented to person and patient oriented x3 Course Reevaluation(s) Reevaluation #1: I discussed the case with here line construction engineer Dr mccann he will call new prescrition to the pharmacy ([facility]). Labs are within normal limit; negative chest x-ray EKG is not ischemic she can be discharge home Medical Decision Making MDM Narrative Medical decision making narrative: Most likely her chest pain is secondary to GI etiology but given that she is diabetic we will go ahead and check an high sensitive troponin, perform a chest x-ray Lab Data Result diagrams: 04/05/21 11:24 04/05/21 11:24 Labs: Lab Results 04/05/21 04/05/21 04/05/21 Range/Units 11:24 11:24 11:24 WBC 5.1 (4.8-10.8) X10*3/uL RBC 4.32 (4.20-5.50) X10*6/uL Hgb 11.6 L (12.0-16.0) g/dl Hct 37.8 (37.0-47.0) % MCV 87.5 (80.0-98.0) fL MCH 26.9 L (27.0-33.0) pg MCHC 30.7 L (31.0-35.0) g/dl RDW 14.7 (11.0-16.0) % Plt Count 177 (160-400) X10*3/uL MPV 10.1 (9.4-12.3) fL Immature Gran % (Auto) 0.2 (0.0-0.4) % Neut % (Auto) 50.0 (45-73) % Lymph % (Auto) 35.0 (20-40) % [place] % (Auto) 11.6 H (2-11) % Eos % (Auto) 2.2 (0-4) % Baso % (Auto) 1.0 (0-2) % Lymph # (Auto) 1.8 (1.2-4.9) X10*3/uL [place] # (Auto) 0.6 (0.1-1.2) X10*3/uL Eos # (Auto) 0.1 (0.0-0.4) X10*3/uL Baso # (Auto) 0.1 (0.0-0.2) X10*3/uL Abs Immat Gran (auto) 0.01 (0.00-0.03) X10*3/uL Absolute Neuts (auto) 2.6 (2.0-8.3) x10*3/uL Absolute Nucleated RBC 0.000 (0.0-0.012) X10*3/uL Nucleated RBC % (auto) 0.0 (0.0-0.2) /100WBC Sodium 136 (135-145) mmol/L Potassium 4.0 (3.3-5.1) mmol/L Chloride 103 (96-108) mmol/L Carbon Dioxide 27 (22-29) mmol/L Anion Gap 10 L (12-20) BUN 9 (9-16) mg/dL Creatinine 0.80 (0.5-1.4) mg/dL Estim Creat Clear Calc 68.7 Estimated GFR > 60 Random Glucose 128 H (60-115) mg/dL Calcium 9.0 (8.4-10.2) mg/dL Total Bilirubin 0.5 (0.0-1.0) mg/dL AST 40 H (5-31) U/L ALT 40 H (0-31) U/L Alkaline Phosphatase 103 (39-117) U/L Troponin I High Sens 8.0 D (<3.5-17.0) ng/L Total Protein 8.1 H (6.5-8.0) g/dL Albumin 3.7 (3.5-5.0) g/dL Imaging Data Chest x-ray: Radiologist's impression: EXAMINATION: XR CHEST CLINICAL INFORMATION: Chest pain COMPARISON: March 25, 2021 TECHNIQUE: AP portable view of the chest was obtained. FINDINGS: No significant abnormality is noted involving the heart, lungs, mediastinum, bony thorax or soft tissues. [place] seen within the right humeral head from previous shoulder surgery. XR/XR chest 1V IMPRESSION: No acute disease. ? Dictated By: Dawson Payne MD Signed By: <Electronically signed by Dawson Payne MD in OV> 04/05/21 1220 ECG Data Attestation: I personally reviewed and interpreted this ECG as follows: Prior ECG tracings: available for review Pacemaker model: EKG shows a normal sinus rhythm with a rate of 68 no ischemia Discharge Plan Discharge Clinical Impression: Chest pain Patient Disposition: Home, Self-Care Instructions: Chest Pain (ED) Additional Instructions: Dr. Mccann will call for you a new prescription Prescriptions: No Action azathioprine [Imuran] 50 mg tablet 50 mg PO DAILY Qty: 60 RF: 3 simethicone [Gas Relief (simethicone)] 125 mg capsule 125 mg PO BID-QID PRN (Reason: abdominal distention) Qty: 20 RF: 0 methylnaltrexone 150 mg tablet 450 mg PO DAILY 30 Days Qty: 90 RF: 3 aspirin 81 mg tablet,delayed release (DR/EC) 81 mg PO DAILY Qty: 30 RF: 5 vitamin A 10,000 unit capsule 1 cap PO DAILY Qty: 30 RF: 2 ferrous sulfate 220 mg (44 mg iron)/5 mL solution 220 mg PO DAILY Qty: 680 RF: 0 bisacodyl [Dulcolax (bisacodyl)] 5 mg tablet,delayed release (DR/EC) 10 mg PO ONCE 1 Days Qty: 2 RF: 0 polyethylene glycol 3350 [Miralax] 17 gram/dose powder 238 g PO ONCE 1 Days Qty: 238 RF: 0 lansoprazole 30 mg capsule,delayed release(DR/EC) 30 mg PO DAILY Qty: 60 RF: 2 sucralfate [Carafate] 100 mg/mL suspension 10 ml PO BID Qty: 1000 RF: 2 lorazepam 0.5 mg tablet 0.5 mg PO QID PRN (Reason: Anxiety) RF: 0 ondansetron 4 mg tablet,disintegrating 4 mg PO Q6-8H PRN (Reason: Nausea) RF: 0 loratadine 10 mg Tablet 10 mg PO DAILY PRN (Reason: Allergy Symptoms) RF: 0 oxycodone 5 mg tablet 5 mg PO Q4-6H PRN (Reason: Pain) RF: 0 lorazepam 0.5 tab PO DAILY PRN (Reason: Anxiety) RF: 0 nortriptyline 10 mg PO DAILY PRN (Reason: Insomnia) RF: 0 naproxen [Naprosyn] 500 mg tablet 500 mg PO BID Qty: 20 RF: 0 (DME) shade Misc See Rx Instructions .ROUTE .MEDSUPPLY Qty: 1 RF: 0 Jardiance 25 mg Tablet 25 mg PO DAILY RF: 0 fluticasone propionate 50 mcg/actuation spray,suspension 50 mcg intranasal DAILY PRN (Reason: Nasal Congestion) RF: 0 albuterol sulfate 90 mcg/actuation HFA aerosol inhaler 90 mcg inhalation BID PRN (Reason: Shortness Of Breath) RF: 0 metformin 500 mg tablet 500 mg PO BID RF: 0 glipizide 10 mg tablet 10 mg PO DAILY RF: 0 lisinopril 2.5 mg tablet 2.5 mg PO DAILY RF: 0 cholecalciferol (vitamin D3) 25 mcg (1,000 unit) capsule 25 mcg PO DAILY RF: 0 zolpidem [Ambien] 10 mg tablet 10 mg PO BEDTIME PRN (Reason: Insomnia) RF: 0 alcohol swabs Pads, Medicated topical RF: 0 prednisone 5 mg tablet 5 mg PO DAILY Qty: 30 RF: 3 Referrals: Eduardo Garcia MD [Primary Care Provider] - 2 days Interventions: ED Discharge Assessment Last Done: 04/05/21 13:27 Discharge Date/Time: 04/05/21 13:29
[2021-04-05] MEDS: Magnesium Hydrox/Alum Hydrox 30 ML ORAL.SUSP PO (11:16)
[2021-04-05 11:19] VITALS: BP 134/64; PULSE 74; RESP 18; TEMP 37; O2SAT 96
[2021-04-05 11:35] LABS: MANUAL DIFF FLAG NO
[2021-04-05 11:40] LABS: Basophils Absolute Auto 0.1 X10*3/uL (0.0-0.2); Eosinophils Absolute Auto 0.1 X10*3/uL (0.0-0.4); Eosinophils Percent Auto 2.2 % (0-4); Hematocrit 37.8 % (37.0-47.0); Hemoglobin 11.6 g/dl (12.0-16.0); Imm Gran Abs Auto 0.01 X10*3/uL (0.00-0.03); Imm Gran Pct Auto 0.2 % (0.0-0.4); Lymphocytes Absolute Auto 1.8 X10*3/uL (1.2-4.9); Mean Corpuscular HGB Conc 30.7 g/dl (31.0-35.0); Mean Corpuscular Hemoglobin 26.9 pg (27.0-33.0); Mean Corpuscular Volume 87.5 fL (80.0-98.0); Mean Platelet Volume 10.1 fL (9.4-12.3); Monocytes Absolute Auto 0.6 X10*3/uL (0.1-1.2); Monocytes Percent Auto 11.6 % (2-11); Neutrophils Absolute Auto 2.6 x10*3/uL (2.0-8.3); Platelet Count 177 X10*3/uL (160-400); Red Blood Count 4.32 X10*6/uL (4.20-5.50); Red Cell Distribution Width 14.7 % (11.0-16.0); White Blood Count 5.1 X10*3/uL (4.8-10.8)
[2021-04-05 11:53] LABS: Alanine Aminotransferase 40 U/L (0-31); Albumin Level 3.7 g/dL (3.5-5.0); Alkaline Phosphatase 103 U/L (39-117); Anion Gap 10 (12-20); Aspartate Amino Transferase 40 U/L (5-31); Bilirubin Total 0.5 mg/dL (0.0-1.0); Blood Urea Nitrogen 9 mg/dL (9-16); Carbon Dioxide 27 mmol/L (22-29); Chloride 103 mmol/L (96-108); Creatinine Clr Calc Pharmacy 68.7; Estimated Glomerular Filt Rate > 60; Glucose Random 128 mg/dL (60-115); Sodium 136 mmol/L (135-145); Total Protein 8.1 g/dL (6.5-8.0)
== END 2021-04-05 13:29 | disposition home or self-care (01) ==
PROVIDERS: Emergency Provider Emergency Medicine; PCP Internal Medicine
DX: R07.9 Chest pain, unspecified (principal); E11.9 Type 2 diabetes mellitus without complications
CPT/HCPCS: 36415; 71045; 80053; 84484; 85025; 93005; 99283; 99284

== ENCOUNTER 2021-04-06 14:58 | Outpatient (REF) | payer MEDICARE, MEDICAID, SELFPAY ==
--- NOTE | ~2021-04-06 | MR_ITS ---
EXAMINATION: MR ABDOMEN WITHOUT AND WITH CONTRAST CLINICAL INFORMATION: Unspecified cirrhosis of liver. Previous reports indicate autoimmune hepatitis. COMPARISON: Selected portions of a previous study 09/15/2020, 06/10/2020 TECHNIQUE: Anatomic and fluid sensitive MR sequences were used to examine the abdomen. Imaging before and after the IV administration of 7 mL of Gadavist. FINDINGS: LIVER: The right lobe of the liver measures 19.3 cm. This is between 1 and 2 standard deviations above the mean expected. The liver contour is nodular. The background hepatic signal is somewhat heterogeneous. There is no suspicious focal liver lesion. BILIARY TRACT: Previous cholecystectomy. No significant biliary dilation. SPLEEN: The spleen measures 10.1 cm which is within normal limits. No focal lesion. PANCREAS: There is no pancreatic mass. The pancreas is not enlarged. There is no pancreatic ductal dilation. ADRENAL GLANDS: Within normal limits. KIDNEYS: There is no dilation of the urinary collecting system on either side. The nephrograms are symmetric. There is no suspicious focal lesion. GASTROINTESTINAL TRACT: There is no bowel wall thickening. ABDOMINAL WALL: No significant hernia is appreciated. LYMPHOVASCULAR STRUCTURES AND FLUID: There is no abdominal aortic aneurysm. The portal vein enhances. There is a suggestion of at least some upper abdominal venous collaterals. MUSCULOSKELETAL: No suspicious marrow signal abnormality. VISUALIZED LOWER CHEST: No suspicious abnormality in the visualized lower chest. MR/MR abdomen wo/w con IMPRESSION: Morphologic finding suggests chronic liver disease and probable cirrhosis. There is no ascites. There may be a few upper abdominal venous collaterals. There is no splenomegaly. There is no liver observation suspicious for hepatocellular carcinoma.
== END 2021-04-06 14:59 | disposition home or self-care (01) ==
LOC: HO.MRI 14:58
PROVIDERS: Visit Provider Internal Medicine Gastroenterology
DX: K74.60 Unspecified cirrhosis of liver (principal)
CPT/HCPCS: 74183; A9585

== ENCOUNTER 2021-04-24 10:23 | Outpatient (REF) | payer MEDICARE, MEDICAID, SELFPAY ==
[2021-04-24 10:50] LABS: MANUAL DIFF FLAG NO
[2021-04-24 11:14] LABS: Basophils Percent Auto 0.9 % (0-2); Eosinophils Absolute Auto 0.2 X10*3/uL (0.0-0.4); Eosinophils Percent Auto 3.4 % (0-4); Hematocrit 38.5 % (37.0-47.0); Hemoglobin 11.9 g/dl (12.0-16.0); Imm Gran Abs Auto 0.01 X10*3/uL (0.00-0.03); Imm Gran Pct Auto 0.2 % (0.0-0.4); Lymphocytes Absolute Auto 1.5 X10*3/uL (1.2-4.9); Lymphocytes Percent Auto 32.4 % (20-40); Mean Corpuscular HGB Conc 30.9 g/dl (31.0-35.0); Mean Corpuscular Hemoglobin 26.7 pg (27.0-33.0); Mean Corpuscular Volume 86.5 fL (80.0-98.0); Mean Platelet Volume 10.4 fL (9.4-12.3); Monocytes Absolute Auto 0.5 X10*3/uL (0.1-1.2); Monocytes Percent Auto 10.2 % (2-11); Neutrophils Absolute Auto 2.5 x10*3/uL (2.0-8.3); Neutrophils Percent Auto 52.9 % (45-73); Platelet Count 232 X10*3/uL (160-400); Red Blood Count 4.45 X10*6/uL (4.20-5.50); Red Cell Distribution Width 14.9 % (11.0-16.0); White Blood Count 4.7 X10*3/uL (4.8-10.8)
[2021-04-24 11:31] LABS: Estimated Average Glucose 160 mg/dL; Hemoglobin A1c % 7.2 %
[2021-04-24 12:16] LABS: Alanine Aminotransferase 31 U/L (0-31); Albumin Level 4.1 g/dL (3.5-5.0); Alkaline Phosphatase 99 U/L (39-117); Anion Gap 11 (12-20); Aspartate Amino Transferase 41 U/L (5-31); Bilirubin Total 0.6 mg/dL (0.0-1.0); Blood Urea Nitrogen 9 mg/dL (9-16); Calcium 9.4 mg/dL (8.4-10.2); Carbon Dioxide 27 mmol/L (22-29); Chloride 102 mmol/L (96-108); Cholesterol 175 mg/dL; Estimated Glomerular Filt Rate > 60; Glucose Random 160 mg/dL (60-115); HDL Cholesterol 39 mg/dL; LDL Cholesterol Calculated 106 mg/dl; Potassium 4.3 mmol/L (3.3-5.1); Sodium 136 mmol/L (135-145); Total Protein 8.7 g/dL (6.5-8.0); Triglycerides 151 mg/dL
[2021-04-24 12:35] LABS: Creatinine Urine 49.63 mg/dL; Microalbumin Urine < 5.0 mg/L
== END 2021-04-24 10:24 | disposition home or self-care (01) ==
LOC: HO.LAB 10:23
PROVIDERS: PCP Internal Medicine; Visit Provider Internal Medicine
DX: R07.89 Other chest pain (principal); K21.9 Gastro-esophageal reflux disease without esophagitis; R11.0 Nausea; E11.9 Type 2 diabetes mellitus without complications
CPT/HCPCS: 36415; 80053; 80061; 82043; 83036; 85025

== ENCOUNTER 2021-05-03 11:24 | Day surgery (SDC) | payer MEDICARE, MEDICAID, SELFPAY ==
[2021-04-28 10:17] VITALS: BMI 27.6
--- NOTE | 2021-05-02 11:01 | P.CONAN_ITS ---
Documented by User: Mireille Mccall NP 05/02/21 11:06 HPI - Anesthesia Eval Consult details Narrative: 60yo F for Upper Endoscopy and Colonoscopy s/p lap mercedez 05/2020 with ANGIEA PMFSH Active Problems Active Problems: All Active Problems (Updated 04/06/21 @ 00:02 by Kit Ferrell) Diabetes (Acute) Arthritis of right knee (Acute) Cirrhosis (Acute) Preoperative cardiovascular examination (Acute) Antiphospholipid antibody positive (Acute) Lupus (Acute) Gallstones (Acute) Past Medical History Medical History Abdominal bloating Antiphospholipid antibody syndrome Arthritis Autoimmune hepatitis Cirrhosis Cirrhosis Diabetes POOL (dyspnea on exertion) Fibromyalgia Gallstones High blood pressure Leg pain, right Lupus Nonalcoholic steatohepatitis (SHARMA) Family History Family History Father History of heart bypass surgery History of diabetes mellitus, type II History of hypertension Mother History of diabetes mellitus, type II Brother History of gout Paternal Uncle History of stomach cancer Surgical History Surgical History History of carpal tunnel release History of cataract surgery (2010) History of cervical discectomy (07/2009) History of colonoscopy History of repair of right rotator cuff (08/2011) History of shoulder surgery Hx of cholecystectomy Hx of endoscopy Social History Social History Household Members: None Alcohol intake: never Patient Tobacco Use Status: Never used Tobacco Are you DNR?: No Advance Directives: No Advance Directives Information Provided: Yes Advance Directives on File: No Meds Allergies Allergy/AdvReac Type Severity Reaction Status Date / Time duloxetine [From CYMBALTA] Allergy Intermediate SHAKINESS Verified 04/28/21 10:11 Home Medications Medication Instructions Recorded Confirmed Last Taken Type glipizide 10 mg tablet 10 mg PO DAILY 05/17/20 04/28/21 Unknown History lisinopril 2.5 mg tablet 2.5 mg PO DAILY 05/17/20 04/28/21 Unknown History metformin 500 mg tablet 500 mg PO BID 05/17/20 04/28/21 Unknown History albuterol sulfate 90 mcg/actuation 90 mcg INHALATION BID PRN 01/11/21 12/03/21 Unknown History aerosol inhaler fluticasone propionate 50 50 mcg INTRANASAL DAILY PRN 06/06/20 04/28/21 Unknown History mcg/actuation nasal spray,suspension loratadine 10 mg tablet 10 mg PO DAILY PRN 06/07/20 04/28/21 Unknown History lorazepam 0.5 mg tablet 0.5 mg PO QID PRN 06/07/20 04/28/21 Unknown History ondansetron 4 mg disintegrating 4 mg PO Q6-8H PRN 06/07/20 04/28/21 Unknown History tablet oxycodone 5 mg tablet 5 mg PO Q4-6H PRN 06/07/20 04/28/21 Unknown History cholecalciferol (vitamin D3) 25 25 mcg PO DAILY 06/10/20 04/28/21 Unknown Hist ory mcg (1,000 unit) capsule empagliflozin 25 mg tablet 25 mg PO DAILY 06/13/20 04/28/21 Unknown History (Jardiance) alcohol swabs pad TOPICAL 08/26/20 08/26/20 Unknown History nortriptyline 10 mg PO DAILY PRN 12/05/20 12/05/20 Unknown History multivitamin 1 tab PO DAILY 04/28/21 04/28/21 Unknown History Exam Exam Date and Time: May 02, 2021 1101 Height,Weight and Vital Signs: Height 5 ft 2 in Weight 68.492 kg Pertinent Lab Results Pertinent Lab Results: Laboratory Tests 12/28/20 04/24/21 04/24/21 03:26 10:47 10:47 WBC 4.7 L Hgb 11.9 L Hct 38.5 Plt Count 232 D PT 11.0 INR 1.0 Sodium 136 Potassium 4.3 Chloride 102 Carbon Dioxide 27 Anion Gap 11 L BUN 9 Creatinine 0.81 Hemoglobin A1c % Calcium 9.4 Total Bilirubin 0.6 AST 41 H ALT 31 Alkaline Phosphatase 99 Total Protein 8.7 H Albumin 4.1 04/24/21 10:47 WBC Hgb Hct Plt Count PT INR Sodium Potassium Chloride Carbon Dioxide Anion Gap BUN Creatinine Hemoglobin A1c % 7.2 Calcium Total Bilirubin AST ALT Alkaline Phosphatase Total Protein Albumin Narrative Narrative: EKG 03/2021 Vent. Rate : 068 BPM ? ? Atrial Rate : 068 BPM ?? P-R Int : 172 ms? QRS Dur : 068 ms ? ? QT Int : 380 ms ? ? ? P-R-T Axes : 059 008 002 degrees ?? QTc Int : 404 ms ? Normal sinus rhythm Normal ECG When compared with ECG of 25-MAR-2021 14:33, No significant changes seen Assessment and Plan Assessment Anesthesia Assessment: Chart Reviewed Documented by User: Claudia Skaggs MD 05/03/21 12:42 PMFSH Past Medical History Medical History Abdominal bloating Antiphospholipid antibody syndrome Arthritis Autoimmune hepatitis Cirrhosis Cirrhosis Diabetes POOL (dyspnea on exertion) Fibromyalgia Gallstones High blood pressure Leg pain, right Lupus Nonalcoholic steatohepatitis (SHARMA) Family History Family History Father History of heart bypass surgery History of diabetes mellitus, type II History of hypertension Mother History of diabetes mellitus, type II Brother History of gout Paternal Uncle History of stomach cancer Family history of problems with anesthesia: No Surgical History Surgical History History of carpal tunnel release History of cataract surgery (2010) History of cervical discectomy (07/2009) History of colonoscopy History of repair of right rotator cuff (08/2011) History of shoulder surgery Hx of cholecystectomy Hx of endoscopy History of Problems with Anesthesia: No Social History Social History Household Members: None Alcohol intake: never Patient Tobacco Use Status: Never used Tobacco Are you DNR?: No Advance Directives: No Advance Directives Information Provided: Yes Advance Directives on File: No Meds Allergies Allergy/AdvReac Type Severity Reaction Status Date / Time duloxetine [From CYMBALTA] Allergy Intermediate SHAKINESS Verified 04/28/21 10:11 Home Medications Medication Instructions Recorded Confirmed Last Taken Type glipizide 10 mg tablet 10 mg PO DAILY 05/17/20 04/28/21 Unknown History lisinopril 2.5 mg tablet 2.5 mg PO DAILY 05/17/20 04/28/21 Unknown History metformin 500 mg tablet 500 mg PO BID 05/17/20 04/28/21 Unknown History albuterol sulfate 90 mcg/actuation 90 mcg INHALATION BID PRN 06/06/20 04/28/21 Unknown History aerosol inhaler fluticasone propionate 50 50 mcg INTRANASAL DAILY PRN 06/06/20 04/28/21 Unknown History mcg/actuation nasal spray,suspension loratadine 10 mg tablet 10 mg PO DAILY PRN 06/07/20 04/28/21 Unknown History lorazepam 0.5 mg tablet 0.5 mg PO QID PRN 06/07/20 04/28/21 Unknown History ondansetron 4 mg disintegrating 4 mg PO Q6-8H PRN 06/07/20 04/28/21 Unknown History tablet oxycodone 5 mg tablet 5 mg PO Q4-6H PRN 06/07/20 04/28/21 Unknown History cholecalciferol (vitamin D3) 25 25 mcg PO DAILY 06/10/20 04/28/21 Unknown History mcg (1,000 unit) capsule empagliflozin 25 mg tablet 25 mg PO DAILY 06/13/20 04/28/21 Unknown History (Jardiance) alcohol swabs pad TOPICAL 08/26/20 08/26/20 Unknown History nortriptyline 10 mg PO DAILY PRN 12/05/20 12/05/20 Unknown History multivitamin 1 tab PO DAILY 04/28/21 04/28/21 Unknown History Exam Airway Mallampati Class: II (Top front caps) TM Dist: >3cm Neck ROM: Full Heart: rrr Lungs: cta Assessment and Plan Assessment Anesthesia Assessment: Anesthesia Plan Discussed and Chart Reviewed Final Anesthetic Review Family History of Problems with Anesthesia: No History of Problems with Anesthesia: No NPO: Yes ASA Class: III Final Preanesthetic Review: No Changes in Pt Med Stat, Meds/Allgs Chart Reviewed and Consent Obtained/Reviewed Patient Risk: Intermediate Procedure Risk: Intermediate Anesthetic Plan Anesthetic Plan: MAC: Disposition: Standard PACU
[2021-05-03 12:00] VITALS: BP 133/70; PULSE 80; RESP 16; TEMP 36.2; O2SAT 94
--- NOTE | 2021-05-03 12:03 | ECG_ITS ---
Test Reason : post op Blood Pressure : / mmHG Vent. Rate : 073 BPM Atrial Rate : 073 BPM P-R Int : 168 ms QRS Dur : 060 ms QT Int : 370 ms P-R-T Axes : 060 014 009 degrees QTc Int : 407 ms Normal sinus rhythm Normal ECG When compared with ECG of 05-APR-2021 10:32, No significant change was found Referred By: Juma Dash Electronically Signed By:Ollie Smtih
--- NOTE | 2021-05-03 12:05 | PC.NURSE ---
after patient got undressed she started to have burning nonradiating epgastric pain with sob. applied heart monitor. nsr with pvc. sat up in bed and then pain started to decrease. color wnl nondiaphoretic. nonradiating pain. 5/10 acceptable pain and was from a 7/10 pain.
--- NOTE | 2021-05-03 12:06 | PC.NURSE ---
ms kathrny aware. ekg ordered.
[2021-05-03 12:15] LABS: Glucose, Whole Blood 161 mg/dL (60-115)
--- NOTE | 2021-05-03 12:44 | PC.NURSE ---
denies any pain at this time. resting comfortably.
--- NOTE | 2021-05-03 14:17 | MHC.SHP ---
Pre-Procedural Eval Section A Date of Service: 05/03/21 Section B Chief Complaint: Change in bowel habit, Abd pain Details of Present Illness: iron def anemia Relevant Family History (Specify if Yes): No Relevant Social History: None Present Medications: see Short Stay Collaborative assessment Medical History: Significant History (Abdominal bloating Antiphospholipid antibody syndrome Arthritis Autoimmune hepatitis Cirrhosis Cirrhosis Diabetes POOL (dyspnea on exertion) Fibromyalgia Gallstones High blood pressure Leg pain, right Lupus Nonalcoholic steatohepatitis (SHARMA)) History of Previous Operations: Relevant previous surgery/procedure and date(s) (History of carpal tunnel release History of cataract surgery (2010) History of cervical discectomy (07/2009) History of colonoscopy History of repair of right rotator cuff (08/2011) History of shoulder surgery Hx of cholecystectomy Hx of endoscopy) Allergies: Allergies Allergy/AdvReac Type Severity Reaction Status Date / Time duloxetine [From CYMBALTA] Allergy Intermediate SHAKINESS Verified 04/28/21 10:11 Review of Systems Sugical H&P ROS: Negative: Constitution, Cardiovascular, Respiratory, Neurological, Psychiatric, Hem-Onc, Allergic/Immunologic, Gastrointestinal, Genitourinary, Musculoskeletal, Integumentary, Endocrine and Eyes/Ears/Nose/Throat Exam Surgical H&P Exam: Normal: HEENT, Normal: Heart, Normal: Lungs, Normal: Extremities, Normal: Abdomen, Normal: Skin and Normal: Neurological Plan Diagnosis/Plan: Unchanged I have reviewed the history and physical and performed a pertinent physical examination on my patient. No changes have occurred unless specified.
--- NOTE | 2021-05-03 14:18 | P.BOP_ITS ---
Brief Operative Note Date of Service: 05/03/21 Pre-op diagnosis: iron def anemia, abdo pain Post-op diagnosis: same Procedure: see op note Surgeon: Jus Liu MD Anesthesia: MAC Was an Aluminum Siding Mechanic used for this Procedure?: No Estimated blood loss (mL): 0 Condition: stable Disposition: PACU
--- NOTE | 2021-05-03 14:19 | W.PM.OPN ---
Operative Note Operative Note Date of Service: 05/03/21 Narrative: Operative Information Procedure Description: EGD, Colonoscopy FLEXIBLE TRANSORAL UPPER GASTROINTESTINAL ENDOSCOPY AND COLONOSCOPY PROCEDURE NOTE UPPER ENDOSCOPY Consent: Indications for the procedure and potential complications of bleeding, perforation, reaction to medications and missed diagnosis were discussed with the patient and informed consent was obtained. Instrument: Olympus GIF H 190 J mid size upper endoscope Monitoring: Vital signs and clinical assessment, continuous EKG monitoring, Pulse oximetry, Carbon Dioxide monitoring and blood pressure monitoring were done throughout the procedure. Procedure: The patient was placed in the left lateral decubitis position and pre-procedure medications were administered and a bite block was placed. The endoscope was inserted into the mouth and advanced under direct vision to the third part of duodenum. A careful inspection was made as the upper endoscope was withdrawn including a retroflexed examination of the proximal stomach; Findings and interventions are described below. Findings: Larynx:normal Esophagus: GE junction at 40 cm, diaphragm hiatus at 40 cm, LA grade A erosive esophagitis Stomach: Patchy erythema. Biopsies were obtained. Grade 2 flap valve on retroflexed examination of the cardia. Duodenum: Normal bulb and descending duodenum, bx taken Intervention: Biopsies as noted above COLONOSCOPY Instrument: Olympus variable stiffness pediatric scope 190L Colonoscopy Monitoring: Vital signs and clinical assessment, continuous EKG monitoring, Pulse oximetry, Carbon Dioxide monitoring and blood pressure monitoring were done throughout the procedure. Colon withdrawal time was 13 minutes. Procedure: The patient was placed in the left lateral decubitis position and pre-procedure medications were administered. After a digital rectal examination of the ano-rectum, the video colonoscope was inserted into the rectum and advanced through the colon to the cecum/TI. The colonoscope was slowly withdrawn in a retrograde panoramic fashion and the colon mucosa was carefully examined including a retroflexed view of the rectum. Findings and interventions are described below. Procedure Difficulty: easy Findings: Terminal Ileum-normal, bx taken random colon bx taken Cecum: 5-7 mm sessile polyp removed with forceps Ascending Colon: normal Transverse Colon -normal Descending Colon:normal Sigmoid Colon: normal Rectum: Retroflexion with small internal hemorrhoids, grade I- slightly inflammed Anorectum - normal Colon preparation: [place] Bowel Preparation Scale Right colon; 2 Transverse colon: 2 Left colon; 2 (0 = Unprepared colon segment with mucosa not seen due to solid stool that cannot be cleared. 1 = Portion of mucosa of the colon segment seen, but other areas of the colon segment not well seen due to staining, residual stool and/or opaque liquid. 2 = Minor amount of residual staining, small fragments of stool and/or opaque liquid, but mucosa of colon segment seen well. 3 = Entire mucosa of colon segment seen well with no residual staining, small fragments of stool or opaque liquid) Impression and Post Procedure Diagnosis: Endoscopy Findings: gastritis esophagitis Colonoscopy Findings: internal hemorrhoids polyp Plan: Await Pathology results Repeat Colonoscopy in 5 years if adenomatous or sessile serrated polyp otherwise 10 yrs or earlier if clinically indicated High fiber diet leaflet avoid straining at stool, epsom salts and sitz bath, anusol supps or cream if bx neg then consider capsule endoscopy Above findings were reviewed with the patient and relevant handouts were provided if indicated.
[2021-05-03 15:18] VITALS: BP 132/72; PULSE 83; RESP 16; TEMP 36.9; O2SAT 96
[2021-05-03 15:33] VITALS: BP 128/61; PULSE 66; RESP 16; TEMP 36.9; O2SAT 99
== END 2021-05-03 16:02 | disposition home or self-care (01) ==
PROVIDERS: PCP Internal Medicine; Visit Provider Internal Medicine Gastroenterology
PROC: (CPT 45380; principal; 2021-05-03 12:50)
DX: R19.4 Change in bowel habit (principal); D12.0 Benign neoplasm of cecum; K64.0 First degree hemorrhoids; K29.50 Unspecified chronic gastritis without bleeding; K20.80 Other esophagitis without bleeding; K44.9 Diaphragmatic hernia without obstruction or gangrene; K74.60 Unspecified cirrhosis of liver; K75.81 Nonalcoholic steatohepatitis (NASH); D68.61 Antiphospholipid syndrome; M32.9 Systemic lupus erythematosus, unspecified; M79.7 Fibromyalgia; I73.9 Peripheral vascular disease, unspecified; I10 Essential (primary) hypertension; E11.9 Type 2 diabetes mellitus without complications; Z79.84 Long term (current) use of oral hypoglycemic drugs; Z79.52 Long term (current) use of systemic steroids; Z79.899 Other long term (current) drug therapy; Z88.8 Allergy status to other drugs, medicaments and biological substances; Z90.49 Acquired absence of other specified parts of digestive tract
CPT/HCPCS: 45380; 43239; 82947; 88305; 88342; 93005

== ENCOUNTER → 2021-05-09 10:11 | Outpatient (BNVA) | payer MEDICARE, MEDICAID, SELFPAY | PROVIDERS: PCP Internal Medicine; Referring Provider Internal Medicine; Visit Provider Internal Medicine Gastroenterology | DX: K74.60 Unspecified cirrhosis of liver (principal); A04.8 Other specified bacterial intestinal infections | CPT/HCPCS: 99212 ==

== ENCOUNTER 2021-05-16 12:44 | Outpatient (REF) | payer MEDICARE, MEDICAID, SELFPAY ==
--- NOTE | ~2021-05-16 | MM_ITS ---
EXAMINATION: MM DIAGNOSTIC DIGITAL BREAST TOMOSYNTHESIS, LEFT CLINICAL INFORMATION: Short interval six-month follow-up probable benign calcifications left breast central 9:00 position. The lifetime risk of breast cancer based on the Tyrer-Cuzick Model is 5%. COMPARISON: Mammography: 11/15/2020, 11/08/2020 (BI-RADS 0), 07/16/2019, 04/22/2018 TECHNIQUE: Digital breast tomosynthesis is performed in both the craniocaudal and mediolateral oblique views along with computer-aided detection (CAD). Synthesized 2D images are generated from the tomosynthesis. FINDINGS: There are scattered areas of fibroglandular density (ACR BI-RADS breast composition Category b). Parenchymal pattern is similar to prior exams and there is no significant mass or developing density or architectural abnormality. Calcifications for follow-up central 9:00 position mid depth are similar to prior diagnostic exam. They are relatively coarse and circumferential oriented possibly suggesting a degenerating fibroadenoma. Calcifications will be reassessed again at time of annual bilateral mammography, due in 6 months. Results are provided to the patient at time of visit by the technologist. MM/MM tomosynthesis diagnostic LT IMPRESSION: Probable benign left breast calcifications for follow-up are stable. ASSESSMENT: BI-RADS 3: Probably Benign RECOMMENDATION: Diagnostic mammography in 6 months. This patient's information was entered into a reminder system with a target due date for their next mammogram.
== END 2021-05-16 12:45 | disposition home or self-care (01) ==
LOC: HO.MAMMO 12:44
PROVIDERS: Visit Provider Internal Medicine
DX: R92.1 Mammographic calcification found on diagnostic imaging of breast (principal)
CPT/HCPCS: 77061; 77065

== ENCOUNTER 2021-06-08 09:23 | Outpatient (REF) | payer MEDICARE, MEDICAID, SELFPAY ==
[2021-06-09 12:55] LABS: H Pylori Breath Test Negative (Negative)
== END 2021-06-08 09:24 | disposition home or self-care (01) ==
LOC: HO.LNP 09:23
PROVIDERS: PCP Internal Medicine; Referring Provider Internal Medicine; Visit Provider Internal Medicine Gastroenterology
DX: A04.8 Other specified bacterial intestinal infections (principal)
CPT/HCPCS: 36415; 80053; 83013; 85025

== ENCOUNTER 2021-06-19 11:41 | Outpatient (REF) | payer MEDICARE, MEDICAID, SELFPAY ==
[2021-06-19 12:16] LABS: Binax Internal Control QC Valid; Binax Now Covid-19 Ag Negative (Negative)
== END 2021-06-19 11:42 | disposition home or self-care (01) ==
LOC: HO.LAB 11:41
PROVIDERS: Visit Provider Internal Medicine
DX: Z20.822 Contact with and (suspected) exposure to COVID-19 (principal)
CPT/HCPCS: C9803

== ENCOUNTER 2021-06-28 09:42 | Outpatient (REF) | payer MEDICARE, MEDICAID, SELFPAY ==
[2021-06-28 10:03] LABS: MANUAL DIFF FLAG NO
[2021-06-28 10:50] LABS: Basophils Absolute Auto 0.1 X10*3/uL (0.0-0.2); Eosinophils Absolute Auto 0.2 X10*3/uL (0.0-0.4); Eosinophils Percent Auto 3.2 % (0-4); Hematocrit 41.2 % (37.0-47.0); Hemoglobin 12.8 g/dl (12.0-16.0); Imm Gran Abs Auto 0.01 X10*3/uL (0.00-0.03); Imm Gran Pct Auto 0.2 % (0.0-0.4); Lymphocytes Absolute Auto 1.9 X10*3/uL (1.2-4.9); Lymphocytes Percent Auto 31.4 % (20-40); Mean Corpuscular HGB Conc 31.1 g/dl (31.0-35.0); Mean Corpuscular Hemoglobin 27.4 pg (27.0-33.0); Monocytes Absolute Auto 0.7 X10*3/uL (0.1-1.2); Monocytes Percent Auto 11.4 % (2-11); Neutrophils Absolute Auto 3.2 x10*3/uL (2.0-8.3); Neutrophils Percent Auto 52.8 % (45-73); Platelet Count 261 X10*3/uL (160-400); Red Blood Count 4.68 X10*6/uL (4.20-5.50); Red Cell Distribution Width 15.4 % (11.0-16.0)
[2021-06-28 10:51] LABS: Appearance Urine HAZY; Color Urine YELLOW; Glucose Urine UA >=1000 MG/DL (NEG); Leukocyte Esterase Urine NEG (NEG); Nitrite Urine NEG (NEG); PH 5.5 (5.0-8.0); Specific Gravity - Urine 1.015 (1.005-1.025); Urine Blood NEG (NEG); Urine Ketones NEG (NEG); Urine Protein NEG (NEG-TRACE)
[2021-06-28 11:14] LABS: RBC Urine 0 /HPF (0); Squamous Epithelial Cell Urine 2+ /LPF; WBC Urine 0-2 /HPF (0-4)
[2021-06-28 11:20] LABS: Alanine Aminotransferase 30 U/L (0-31); Albumin Level 4.2 g/dL (3.5-5.0); Alkaline Phosphatase 106 U/L (39-117); Anion Gap 12 (12-20); Aspartate Amino Transferase 42 U/L (5-31); Bilirubin Total 0.6 mg/dL (0.0-1.0); Blood Urea Nitrogen 10 mg/dL (9-16); Calcium 9.7 mg/dL (8.4-10.2); Carbon Dioxide 27 mmol/L (22-29); Chloride 104 mmol/L (96-108); Cholesterol 196 mg/dL; Estimated Glomerular Filt Rate > 60; Glucose Random 152 mg/dL (60-115); HDL Cholesterol 40 mg/dL; LDL Cholesterol Calculated 122 mg/dl; Lipase 36 U/L (8-78); Potassium 4.4 mmol/L (3.3-5.1); Sodium 139 mmol/L (135-145); Total Protein 8.9 g/dL (6.5-8.0); Triglycerides 173 mg/dL
[2021-06-28 11:24] LABS: Creatinine Urine 61.47 mg/dL; Microalbumin Urine < 5.0 mg/L
[2021-06-28 11:24] LABS: Estimated Average Glucose 166 mg/dL; Hemoglobin A1c % 7.4 %
[2021-06-28 11:42] LABS: Free T4 (Free Thyroxine) 0.89 ng/dL (0.71-1.85); Thyroid Stimulating Hormone 3.84 uIU/mL (0.32-4.0)
== END 2021-06-28 09:43 | disposition home or self-care (01) ==
LOC: HO.LAB 09:42
PROVIDERS: PCP Internal Medicine; Visit Provider Internal Medicine
DX: M54.42 Lumbago with sciatica, left side (principal); M54.41 Lumbago with sciatica, right side; K74.69 Other cirrhosis of liver; E11.9 Type 2 diabetes mellitus without complications; R10.13 Epigastric pain; R35.1 Nocturia; R53.81 Other malaise; R53.83 Other fatigue
CPT/HCPCS: 36415; 80053; 80061; 81001; 82043; 83036; 83690; 84439; 84443; 85025; 87086

== ENCOUNTER 2021-07-03 12:23 | Outpatient (REF) | payer MEDICARE, MEDICAID, SELFPAY ==
[2021-07-03 13:43] LABS: C Reactive Protein 0.44 mg/dL (< or = 0.50)
[2021-07-03 14:00] LABS: Erythrocyte Sedimentation Rate 28 MM/HR (0-20)
[2021-07-06 12:41] LABS: Prot Elec - Albumin 4.2 g/dL (3.8-4.8); Prot Elec - Alpha1 0.3 g/dL (0.2-0.3); Prot Elec - Alpha2 0.7 g/dL (0.5-0.9); Prot Elec - Beta 1 0.6 g/dL (0.4-0.6); Prot Elec - Beta 2 0.4 g/dL (0.2-0.5); Prot Elec - Gamma 2.3 g/dL (0.8-1.7); Prot Elec - Total Protein 8.5 g/dL (6.1-8.1)
[2021-07-10 14:11] LABS: Kappa, Serum 687 mg/dL (176-443); Kappa/Lambda Ratio, Serum 2.32 (1.29-2.55); Lambda, Serum 296 mg/dL (91-240)
== END 2021-07-03 12:24 | disposition home or self-care (01) ==
LOC: HO.LAB 12:23
PROVIDERS: PCP Internal Medicine; Visit Provider Internal Medicine
DX: R77.1 Abnormality of globulin (principal); M25.50 Pain in unspecified joint
CPT/HCPCS: 36415; 83883; 84165; 85652; 86140

== ENCOUNTER 2021-07-04 10:55 | Outpatient (REF) | payer MEDICARE, MEDICAID, SELFPAY ==
[2021-07-04 12:36] LABS: B Type Natriuretic Peptide 28 pg/mL (<100)
== END 2021-07-04 10:56 | disposition home or self-care (01) ==
LOC: HO.LAB 10:55
PROVIDERS: PCP Internal Medicine; Visit Provider Internal Medicine Gastroenterology
DX: A04.8 Other specified bacterial intestinal infections (principal); K74.60 Unspecified cirrhosis of liver; M32.9 Systemic lupus erythematosus, unspecified
CPT/HCPCS: 36415; 83880

== ENCOUNTER 2021-07-10 11:28 | Outpatient (REF) | payer MEDICARE, MEDICAID, SELFPAY ==
[2021-07-12 22:36] LABS: IgA 497 mg/dL (47-310); IgG 2454 mg/dL (600-1640); IgM 235 mg/dL (50-300)
== END 2021-07-10 11:29 | disposition home or self-care (01) ==
LOC: HO.LAB 11:28
PROVIDERS: PCP Internal Medicine; Visit Provider Internal Medicine
DX: R77.1 Abnormality of globulin (principal)
CPT/HCPCS: 36415; 82784

== ENCOUNTER → 2021-07-18 09:52 | Outpatient (BNVA) | payer MEDICARE, MEDICAID, SELFPAY | PROVIDERS: PCP Internal Medicine; Referring Provider Internal Medicine; Visit Provider Internal Medicine Gastroenterology | DX: Z11.0 Encounter for screening for intestinal infectious diseases (principal) | CPT/HCPCS: 99211 ==

== ENCOUNTER 2021-07-18 13:59 | Outpatient (REF) | payer MEDICARE, MEDICAID, SELFPAY ==
[2021-07-19 13:57] LABS: H Pylori Breath Test Negative (Negative)
== END 2021-07-18 14:00 | disposition home or self-care (01) ==
LOC: HO.LNP 13:59
PROVIDERS: Visit Provider Internal Medicine Gastroenterology
DX: A04.8 Other specified bacterial intestinal infections (principal)
CPT/HCPCS: 83013

== ENCOUNTER → 2021-07-26 13:42 | Outpatient (BNVA) | payer MEDICARE, MEDICAID, SELFPAY | PROVIDERS: PCP Internal Medicine; Referring Provider Internal Medicine; Visit Provider Internal Medicine Cardiovascular Disease | DX: R07.9 Chest pain, unspecified (principal) | CPT/HCPCS: 93005; 99212 ==

== ENCOUNTER → 2021-08-02 10:12 | Outpatient (REF) | payer MEDICARE, MEDICAID, SELFPAY ==
--- NOTE | 2021-08-02 10:16 | CA_ITS ---
Acquisition Time: 2021-08-02 10:13:14 Total Exercise Time: 00:02:53 Test Indications: Dyspnea Medications: SEE H Protocol: BENJAMIN Max HR: 112 BPM 70% of Pred: 160 BPM Max BP: 136/050 mmHG Max Work Load: 4.6 METS Exercise stress test with exercise 2 min 53 sec of Benjamin protocol, achieving 67% of MPHR, with patient request to stop due to moderate shortness of breath, mild burning in mid chest and feet feeling tired and heavy , with isolated PVC, with normotensive response to exercise, with nondiagnostic EKG for ischemia due to suboptimal exercise time and heart rate. In recovery her symptoms resolved. Will order a pharmacological nuclear stress test for further evaluation. Test reviewed with Dr Shirley. Referred By: Ollie Smith Overread By: ALPHONSE METZGER
== END ==
LOC: HO.CARD 10:12
PROVIDERS: PCP Internal Medicine; Visit Provider Internal Medicine Cardiovascular Disease
DX: R07.9 Chest pain, unspecified (principal)
CPT/HCPCS: 93017

== ENCOUNTER → 2021-08-04 07:41 | Outpatient (REF) | payer MEDICARE, MEDICAID, SELFPAY ==
--- NOTE | ~2021-08-04 | NM_ITS ---
EXAMINATION: RADIONUCLIDE SOLID FOOD GASTRIC EMPTYING 4-HOUR STUDY CLINICAL INFORMATION: Early satiety. COMPARISON: No previous gastric emptying study is available for comparison. TECHNIQUE: A standard meal consisting of 4 oz of Egg Beaters brand equivalent tagged with 1.0 mCi Tc-99m Sulfur Colloid, 8 oz water and 2 slices of toast with jelly was administered orally to the patient. Images were obtained using a dual head gamma camera in the anterior and posterior projections over of the stomach immediately post ingestion and at hourly intervals up to 4 hours post ingestion. The anterior and posterior counts at each time interval were averaged using the geometric mean and expressed as percentage of the immediate post ingestion counts. FINDINGS: There is good visualization of activity in the stomach immediately post ingestion. As the study progresses, there is good clearance of activity from the stomach and visualization of progressively increasing small bowel activity. By the end of the study, there is almost no retention noted in the stomach. Retention in the stomach at each time interval was: 1 hour 78% (normal 37%-90%) 2 hours 25% (normal 30%-60%) 3 hours 13% 4 hours 1% (normal 0%-10%) NM/NM gastric emptying study IMPRESSION: Normal 4-hour solid food gastric emptying study.
== END ==
LOC: HO.NUCMED 07:41
PROVIDERS: Visit Provider Internal Medicine Gastroenterology
DX: R68.81 Early satiety (principal)
CPT/HCPCS: 78264; A9541

== ENCOUNTER → 2021-08-23 09:32 | Outpatient (REF) | payer MEDICARE, MEDICAID, SELFPAY ==
--- NOTE | ~2021-08-23 | NM_ITS ---
Lexiscan Myocardial perfusion study Indication: Chest pain, assess for coronary disease and ischemia Technique: The patient was brought in for a Lexiscan perfusion study on 08/23/2021 and was injected 0.4 mg of Lexiscan intravenously. Within a minute of this injection 25 mCi of sestamibi was given intravenously. Images were obtained using the SPECT gamma camera interlaced with the gating device. Images were obtained in supine position. Resting perfusion study was performed on 08/24/2021. Patient was administered 25 mCi of sestamibi intravenously at rest. Images were then obtained in supine position. Total DLP 99mGy-cm. Images were processed with the software and compared side to side in short axis, horizontal long axis and vertical long axis views. Findings: Raw acquisition was reviewed. The stress perfusion study showed no significant perfusion abnormality. Uncorrected as well as CT attenuation corrected images were reviewed. The gated study shows normal LV systolic function with calculated LVEF of > 70%. LV cavity is normal in size. The gated study shows normal wall thickening and contraction of segments. Resting study shows no significant perfusion abnormality. Gating at rest reveals normal wall motion with ejection fraction at 66%. The findings are consistent with no reversible or fixed perfusion abnormality. NM/NM cardiolite stress test Impression: 1. Myocardial perfusion imaging study shows normal myocardial perfusion. No evidence of any ischemia or infarction. 2. Gated LVEF is > 70% during stress; 66% during rest. 3. Transient ischemic dilatation not present. EKG component of the test reported separately.
--- NOTE | 2021-08-23 09:35 | CA_ITS ---
Acquisition Time: 2021-08-23 09:42:09 Total Exercise Time: 00:02:00 Test Indications: Chest Pain Medications: SEE H Protocol: LEXISCAN Max HR: 131 BPM 81% of Pred: 160 BPM Max BP: 146/072 mmHG Max Work Load: 1.0 METS Pharmacological stress test with Lexiscan injection while sitting and kicking her legs, with mod sob post injection, no chest discomfort, with isolated PVC, with normotensive response to injection, with nondiagnostic EKG for ischemia. In recovery she was given Aminophylline 75mg IVP to reverse Lexiscan with improvement in breathing. Nuclear images pending. Test reviewed with Dr Goldman. Referred By: Padma Smith Overread By: PADMA SMITH
== END ==
LOC: HO.CARD 09:32
PROVIDERS: Visit Provider Nurse Practitioner Family
DX: R07.9 Chest pain, unspecified (principal); R94.39 Abnormal result of other cardiovascular function study
CPT/HCPCS: 78452; 93017; A9500; J0280; J2785

== ENCOUNTER 2021-10-02 08:31 | Outpatient (REF) | payer MEDICARE, MEDICAID, SELFPAY ==
[2021-10-02 08:59] LABS: COVID-19 Test Positive (Negative); IDNOW Serial# 16C4AD1C
== END 2021-10-02 08:32 | disposition home or self-care (01) ==
LOC: HO.LAB 08:31
PROVIDERS: Visit Provider Internal Medicine
DX: Z20.822 Contact with and (suspected) exposure to COVID-19 (principal)
CPT/HCPCS: 87635; C9803

== ENCOUNTER 2021-10-10 09:27 | Outpatient (REF) | payer MEDICARE, MEDICAID, SELFPAY ==
[2021-10-10 10:10] LABS: MANUAL DIFF FLAG NO
[2021-10-10 10:15] LABS: Basophils Percent Auto 0.6 % (0-2); Eosinophils Absolute Auto 0.2 X10*3/uL (0.0-0.4); Hematocrit 40.2 % (37.0-47.0); Hemoglobin 12.9 g/dl (12.0-16.0); Imm Gran Abs Auto 0.01 X10*3/uL (0.00-0.03); Imm Gran Pct Auto 0.2 % (0.0-0.4); Lymphocytes Absolute Auto 1.3 X10*3/uL (1.2-4.9); Lymphocytes Percent Auto 26.7 % (20-40); Mean Corpuscular HGB Conc 32.1 g/dl (31.0-35.0); Mean Corpuscular Hemoglobin 28.2 pg (27.0-33.0); Mean Corpuscular Volume 87.8 fL (80.0-98.0); Monocytes Absolute Auto 0.5 X10*3/uL (0.1-1.2); Monocytes Percent Auto 9.7 % (2-11); Neutrophils Absolute Auto 2.8 x10*3/uL (2.0-8.3); Neutrophils Percent Auto 58.8 % (45-73); Platelet Count 233 X10*3/uL (160-400); Red Blood Count 4.58 X10*6/uL (4.20-5.50); Red Cell Distribution Width 14.6 % (11.0-16.0); White Blood Count 4.7 X10*3/uL (4.8-10.8)
[2021-10-10 10:30] LABS: Estimated Average Glucose 163 mg/dL; Hemoglobin A1c % 7.3 %
[2021-10-10 10:55] LABS: Alanine Aminotransferase 25 U/L (0-31); Albumin Level 4.2 g/dL (3.5-5.0); Alkaline Phosphatase 117 U/L (39-117); Anion Gap 12 (12-20); Aspartate Amino Transferase 35 U/L (5-31); Bilirubin Total 0.6 mg/dL (0.0-1.0); Blood Urea Nitrogen 9 mg/dL (9-16); Calcium 9.6 mg/dL (8.4-10.2); Carbon Dioxide 26 mmol/L (22-29); Chloride 102 mmol/L (96-108); Estimated Glomerular Filt Rate > 60; Glucose Random 185 mg/dL (60-115); Potassium 4.3 mmol/L (3.3-5.1); Sodium 136 mmol/L (135-145); Total Protein 8.9 g/dL (6.5-8.0)
[2021-10-10 11:21] LABS: Vitamin B12 665 pg/mL (200-900)
== END 2021-10-10 09:28 | disposition home or self-care (01) ==
LOC: HO.LAB 09:27
PROVIDERS: PCP Internal Medicine; Visit Provider Internal Medicine
DX: I10 Essential (primary) hypertension (principal); E11.9 Type 2 diabetes mellitus without complications; M54.42 Lumbago with sciatica, left side; M54.41 Lumbago with sciatica, right side; G89.29 Other chronic pain; K21.9 Gastro-esophageal reflux disease without esophagitis; K74.69 Other cirrhosis of liver
CPT/HCPCS: 36415; 80053; 82607; 83036; 85025

== ENCOUNTER 2021-10-30 12:57 | Outpatient (REF) | payer MEDICARE, MEDICAID, SELFPAY ==
[2021-10-30 14:15] LABS: MANUAL DIFF FLAG NO
[2021-10-30 14:31] LABS: Basophils Absolute Auto 0.1 X10*3/uL (0.0-0.2); Basophils Percent Auto 1.1 % (0-2); Eosinophils Absolute Auto 0.1 X10*3/uL (0.0-0.4); Eosinophils Percent Auto 2.4 % (0-4); Hematocrit 38.2 % (37.0-47.0); Hemoglobin 12.2 g/dl (12.0-16.0); Imm Gran Abs Auto 0.01 X10*3/uL (0.00-0.03); Imm Gran Pct Auto 0.2 % (0.0-0.4); Lymphocytes Absolute Auto 1.5 X10*3/uL (1.2-4.9); Lymphocytes Percent Auto 28.8 % (20-40); Mean Corpuscular HGB Conc 31.9 g/dl (31.0-35.0); Mean Corpuscular Hemoglobin 28.2 pg (27.0-33.0); Mean Corpuscular Volume 88.4 fL (80.0-98.0); Mean Platelet Volume 10.2 fL (9.4-12.3); Monocytes Absolute Auto 0.5 X10*3/uL (0.1-1.2); Monocytes Percent Auto 8.9 % (2-11); Neutrophils Absolute Auto 3.1 x10*3/uL (2.0-8.3); Neutrophils Percent Auto 58.6 % (45-73); Platelet Count 228 X10*3/uL (160-400); Red Blood Count 4.32 X10*6/uL (4.20-5.50); Red Cell Distribution Width 14.6 % (11.0-16.0); White Blood Count 5.3 X10*3/uL (4.8-10.8)
[2021-10-30 14:38] LABS: Prothrombin Time 11.8 SEC (9.9-13.0)
[2021-10-30 14:57] LABS: Alanine Aminotransferase 29 U/L (0-31); Albumin Level 4.3 g/dL (3.5-5.0); Alkaline Phosphatase 117 U/L (39-117); Anion Gap 15 (12-20); Aspartate Amino Transferase 37 U/L (5-31); Bilirubin Total 0.4 mg/dL (0.0-1.0); Blood Urea Nitrogen 9 mg/dL (9-16); Calcium 9.5 mg/dL (8.4-10.2); Carbon Dioxide 24 mmol/L (22-29); Chloride 101 mmol/L (96-108); Estimated Glomerular Filt Rate 53; Glucose Random 233 mg/dL (60-115); Potassium 4.3 mmol/L (3.3-5.1); Sodium 136 mmol/L (135-145); Total Protein 9.2 g/dL (6.5-8.0)
[2021-10-30 15:14] LABS: Appearance Urine CLEAR; Color Urine STRAW; Glucose Urine UA >=1000 MG/DL (NEG); Leukocyte Esterase Urine NEG (NEG); Nitrite Urine NEG (NEG); PH 5.5 (5.0-8.0); Specific Gravity - Urine <= 1.005 (1.005-1.025); Urine Blood NEG (NEG); Urine Ketones NEG (NEG); Urine Protein NEG (NEG-TRACE)
[2021-10-30 15:17] LABS: Ferritin 13 ng/mL (10-250); Vitamin D 25-OH Total 39.9 ng/mL (>30)
[2021-10-30 15:28] LABS: Bacteria Urine 2+ /LPF; RBC Urine 0 /HPF (0); Squamous Epithelial Cell Urine 3+ /LPF; WBC Urine 0-2 /HPF (0-4)
[2021-10-30 15:40] LABS: Folate 18.6 ng/mL (> or = 4.0); Vitamin B12 651 pg/mL (200-900)
[2021-11-02 05:32] LABS: Zinc 79 mcg/dL (60-130)
[2021-11-02 16:37] LABS: Vitamin C 0.7 mg/dL (0.3-2.7)
[2021-11-03 01:11] LABS: Vitamin A 35 mcg/dL (38-98)
[2021-11-03 19:25] LABS: Vitamin B5 (Pantothenic Acid) 66 ng/mL (<275)
[2021-11-04 01:31] LABS: Alpha-Tocopherol 12.2 mg/L (5.7-19.9); Beta-Gamma Tocopherol 1.1 mg/L (<=4.3)
[2021-11-04 17:42] LABS: Nicotinamide <20 ng/mL; Vit B3 - Nicotinic Acid <20 ng/mL
[2021-11-05 12:35] LABS: Vitamin B6 14.6 ng/mL (2.1-21.7)
[2021-11-06 04:58] LABS: Vitamin K1 856 pg/mL (130-1500)
== END 2021-10-30 12:58 | disposition home or self-care (01) ==
LOC: HO.LAB 12:57
PROVIDERS: PCP Internal Medicine; Referring Provider Internal Medicine; Visit Provider Internal Medicine Gastroenterology
DX: R30.0 Dysuria (principal); K74.60 Unspecified cirrhosis of liver; K75.81 Nonalcoholic steatohepatitis (NASH)
CPT/HCPCS: 36415; 80053; 81001; 82180; 82306; 82607; 82728; 82746; 84207; 84446; 84590; 84591; 84597; 84630; 85025; 85610; 99212

== ENCOUNTER → 2021-11-01 09:05 | Outpatient (BNVA) | payer MEDICARE, MEDICAID, SELFPAY | PROVIDERS: PCP Internal Medicine; Referring Provider Internal Medicine; Visit Provider Internal Medicine Cardiovascular Disease | DX: R06.00 Dyspnea, unspecified (principal); R94.39 Abnormal result of other cardiovascular function study; R07.9 Chest pain, unspecified | CPT/HCPCS: 99212 ==

== ENCOUNTER 2021-11-14 12:47 | Outpatient (REF) | payer MEDICARE, MEDICAID, SELFPAY ==
--- NOTE | ~2021-11-14 | MM_ITS ---
EXAMINATION: MM DIAGNOSTIC DIGITAL BREAST TOMOSYNTHESIS, BILATERAL CLINICAL INFORMATION: Due for yearly. Follow-up probable benign calcifications central 9:00 left breast mid depth. The lifetime risk of breast cancer based on the Tyrer-Cuzick Model is 5%. COMPARISON: Mammography: 05/16/2021, 11/15/2020, 11/08/2020 (BI-RADS 0), 07/16/2019, 04/22/2018 TECHNIQUE: Digital breast tomosynthesis is performed in both the craniocaudal and mediolateral oblique views along with computer-aided detection (CAD). Synthesized 2D images are generated from the tomosynthesis. Additional magnification left CC and magnification left LM views are obtained. FINDINGS: There are scattered areas of fibroglandular density (ACR BI-RADS breast composition Category b). Parenchymal pattern is similar to prior studies. There is stable nodularity posterior 12:00 left breast anterior to mid 12:00 right breast. No developing density or architectural abnormality. No interval abnormal calcifications. The axilla and skin contours are unremarkable. Left breast calcifications for follow-up are stable. They are relatively coarse and circumferential arrangement suggesting fibroadenomatous change. They will be reassessed again at next bilateral annual mammography, due in 12 months. Results are provided to the patient at time of visit by the technologist. MM/MM tomosynthesis diagnostic BI IMPRESSION: -No significant changes from prior studies. -Probable benign calcifications mid central 9:00 left breast, stable. ASSESSMENT: BI-RADS 3: Probably Benign RECOMMENDATION: Diagnostic mammography at time of next annual exam, due in 12 months. This patient's information was entered into a reminder system with a target due date for their next mammogram.
== END 2021-11-14 12:48 | disposition home or self-care (01) ==
LOC: HO.MAMMO 12:47
PROVIDERS: PCP Internal Medicine; Visit Provider Internal Medicine
DX: R92.1 Mammographic calcification found on diagnostic imaging of breast (principal)
CPT/HCPCS: 77062; 77066

== ENCOUNTER 2021-11-23 10:38 | Outpatient (REF) | payer MEDICARE, MEDICAID, SELFPAY ==
[2021-11-23 11:09] LABS: Hematocrit 37.7 % (37.0-47.0); Hemoglobin 11.9 g/dl (12.0-16.0); Mean Corpuscular HGB Conc 31.6 g/dl (31.0-35.0); Mean Corpuscular Hemoglobin 27.5 pg (27.0-33.0); Mean Corpuscular Volume 87.3 fL (80.0-98.0); Mean Platelet Volume 9.8 fL (9.4-12.3); Platelet Count 236 X10*3/uL (160-400); Red Blood Count 4.32 X10*6/uL (4.20-5.50); Red Cell Distribution Width 14.3 % (11.0-16.0)
[2021-11-23 11:16] LABS: Prothrombin Time 11.7 SEC (10.0-13.1)
[2021-11-23 12:05] LABS: Anion Gap 13 (12-20); Blood Urea Nitrogen 10 mg/dL (9-16); Calcium 9.3 mg/dL (8.4-10.2); Carbon Dioxide 23 mmol/L (22-29); Chloride 101 mmol/L (96-108); Estimated Glomerular Filt Rate > 60; Glucose Random 208 mg/dL (60-115); Potassium 4.5 mmol/L (3.3-5.1); Sodium 132 mmol/L (135-145)
== END 2021-11-23 10:39 | disposition home or self-care (01) ==
LOC: HO.LAB 10:38
PROVIDERS: PCP Internal Medicine; Visit Provider Internal Medicine Cardiovascular Disease
DX: R06.00 Dyspnea, unspecified (principal)
CPT/HCPCS: 36415; 80048; 85027; 85610

== ENCOUNTER 2021-11-29 12:55 | Outpatient (REF) | payer MEDICARE, MEDICAID, SELFPAY ==
[2021-11-29 16:11] LABS: MANUAL DIFF FLAG NO
[2021-11-29 16:41] LABS: Basophils Absolute Auto 0.1 X10*3/uL (0.0-0.2); Eosinophils Absolute Auto 0.1 X10*3/uL (0.0-0.4); Eosinophils Percent Auto 1.8 % (0-4); Hemoglobin 11.9 g/dl (12.0-16.0); Imm Gran Abs Auto 0.02 X10*3/uL (0.00-0.03); Imm Gran Pct Auto 0.3 % (0.0-0.4); Lymphocytes Absolute Auto 2.1 X10*3/uL (1.2-4.9); Lymphocytes Percent Auto 34.1 % (20-40); Mean Corpuscular HGB Conc 31.3 g/dl (31.0-35.0); Mean Corpuscular Hemoglobin 27.7 pg (27.0-33.0); Mean Corpuscular Volume 88.4 fL (80.0-98.0); Mean Platelet Volume 10.3 fL (9.4-12.3); Monocytes Absolute Auto 0.7 X10*3/uL (0.1-1.2); Neutrophils Absolute Auto 3.3 x10*3/uL (2.0-8.3); Neutrophils Percent Auto 51.8 % (45-73); Platelet Count 255 X10*3/uL (160-400); Red Cell Distribution Width 14.3 % (11.0-16.0); White Blood Count 6.3 X10*3/uL (4.8-10.8)
== END 2021-11-29 12:56 | disposition home or self-care (01) ==
LOC: HO.LAB 12:55
PROVIDERS: PCP Internal Medicine; Visit Provider Physician Assistant
DX: K92.1 Melena (principal); R10.11 Right upper quadrant pain; K21.9 Gastro-esophageal reflux disease without esophagitis; Z79.899 Other long term (current) drug therapy
CPT/HCPCS: 36415; 85025; 99212

== ENCOUNTER 2021-12-15 07:40 | Outpatient (REF) | payer MEDICARE, MEDICAID, SELFPAY ==
--- NOTE | ~2021-12-15 | US_ITS ---
EXAMINATION: US ABDOMEN COMPLETE CLINICAL INFORMATION: Unspecified cirrhosis of liver. COMPARISON: MRI abdomen 04/06/2021. CT abdomen and pelvis 01/14/2020. Ultrasound abdomen limited 11/12/2019. Ultrasound abdomen complete 08/20/2019. TECHNIQUE: Real-time imaging of the abdominal viscera. FINDINGS: PANCREAS: Normal. ABDOMINAL AORTA: The proximal, mid, and distal segments are normal in caliber. INFERIOR VENA CAVA: Visualized portions are normal. LIVER: The liver is normal in size. The liver contour is mildly nodular. There is heterogeneously increased liver parenchymal echogenicity. No focal hepatic lesion. There is no intrahepatic biliary duct dilatation seen. GALLBLADDER: Surgically absent. COMMON BILE DUCT: Normal in caliber measuring 0.1 cm in diameter. RIGHT KIDNEY: Normal. No hydronephrosis. No renal calculi or focal parenchymal lesions. The kidney measures 10.7 cm in maximum dimension. LEFT KIDNEY: Normal. No hydronephrosis. No renal calculi or focal parenchymal lesions. The kidney measures 10.6 cm in maximum dimension. SPLEEN: Normal. The spleen measures 10.5 cm in maximum dimension. FREE FLUID: None. US/US abdomen complete IMPRESSION: There is increase in hepatic echotexture and hepatic surface nodularity, consistent with the provided history of cirrhosis. No focal hepatic mass or intrahepatic biliary dilatation is seen.
== END 2021-12-15 07:41 | disposition home or self-care (01) ==
LOC: HO.US 07:40
PROVIDERS: PCP Internal Medicine; Visit Provider Internal Medicine Gastroenterology
DX: K74.60 Unspecified cirrhosis of liver (principal)
CPT/HCPCS: 76700

== ENCOUNTER → 2021-12-20 10:32 | Outpatient (BNVA) | payer MEDICARE, MEDICAID, SELFPAY | PROVIDERS: PCP Internal Medicine; Visit Provider Internal Medicine Rheumatology | DX: R07.89 Other chest pain (principal); R06.00 Dyspnea, unspecified; I25.10 Atherosclerotic heart disease of native coronary artery without angina pectoris; Z95.5 Presence of coronary angioplasty implant and graft; E11.9 Type 2 diabetes mellitus without complications; E78.5 Hyperlipidemia, unspecified; M32.9 Systemic lupus erythematosus, unspecified; K74.60 Unspecified cirrhosis of liver; K75.4 Autoimmune hepatitis; M17.11 Unilateral primary osteoarthritis, right knee | CPT/HCPCS: 99202; 99212 ==

== ENCOUNTER 2022-01-06 12:07 | Emergency (ER) | payer MEDICARE, MEDICAID, SELFPAY ==
--- NOTE | ~2022-01-06 | XR_ITS ---
EXAMINATION: XR CHEST CLINICAL INFORMATION: Chest pain COMPARISON: Previous chest x-ray most recent March 2021 TECHNIQUE: Frontal view of the chest was obtained. FINDINGS: The cardiac and mediastinal contours are normal. The lungs are clear. There is no pleural effusion or pneumothorax. There are degenerative changes of the spine. There is postsurgical change to the right shoulder. XR/XR chest 1V IMPRESSION: No evidence for acute disease in the chest.
--- NOTE | ~2022-01-06 | CT_ITS ---
EXAMINATION: CT HEAD WITHOUT CONTRAST CLINICAL INFORMATION: Dizziness COMPARISON: CT head 12/28/2020 TECHNIQUE: Contiguous axial imaging was performed from the skull base to vertex without intravenous administration of contrast. Coronal and sagittal reformatted images are performed at CT scanner This CT examination was performed using dose optimization techniques as appropriate, variously including the following: *Automated exposure control *Adjustment of mA and/or kV according to patient size (this includes techniques or standardized protocols for targeted exams where dose is matched to indication/reason for exam; i.e. extremities or head) *Use of iterative reconstruction technique DLP: 623 mGy-cm FINDINGS: There is no evidence of acute intracranial hemorrhage or territorial infarction. No abnormal mass effect or midline shift is seen. Rey to white matter differentiation is well preserved. No extra-axial fluid collections are identified. The ventricles are normal in size. There is no abnormal attenuation within the brain parenchyma. The osseous structures and soft tissues are normal. The mastoid air cells and visualized portions of the paranasal sinuses are well aerated. CT/CT head/brain wo con IMPRESSION: No acute intracranial pathology.
[2022-01-06 12:52] VITALS: BP 136/56; PULSE 88; RESP 18; TEMP 36.2; O2SAT 98; BMI 27.3
[2022-01-06 14:00] VITALS: BP 128/70; PULSE 83; RESP 18; TEMP 36.7; O2SAT 96
--- NOTE | 2022-01-06 14:20 | ED_ITS ---
HPI - Chest Pain General Chief Complaint: Chest Pain Stated Complaint: chest pain/SOB Time Seen by Provider: 01/06/22 14:16 Source: patient Mode of arrival: ambulatory History of Present Illness HPI narrative: 61-year-old female with past medical history of cirrhosis, diabetes, fibromyalgia, HTN, lupus, CAD s/p stent placement on 12/05/2021, presenting to the ED complaining of chest discomfort/burning beginning last night worsening today with radiation down RUE, SOB, generalized fatigue/weakness and room spinning dizziness. Dizziness worse with position changes/head movement. Denies vision change/loss, neck pain, abdominal pain, nausea/vomiting, pedal edema, recent travel. MD complaint: chest pain Related Data Home Medications Medication Instructions Recorded Confirmed glipizide 10 mg tablet 10 mg PO DAILY 05/17/20 12/21/21 lisinopril 2.5 mg tablet 2.5 mg PO DAILY 05/17/20 12/21/21 metformin 500 mg tablet 500 mg PO BID 05/17/20 12/21/21 albuterol sulfate 90 mcg/actuation 90 mcg inhalation BID PRN 06/06/20 12/21/21 aerosol inhaler Shortness Of Breath fluticasone propionate 50 50 mcg intranasal DAILY PRN Nasal 06/06/20 12/21/21 mcg/actuation nasal Congestion spray,suspension loratadine 10 mg tablet 10 mg PO DAILY PRN Allergy Symptoms 06/07/20 12/21/21 lorazepam 0.5 mg tablet 0.5 mg PO QID PRN Anxiety 06/07/20 12/21/21 ondansetron 4 mg disintegrating 4 mg PO Q6-8H PRN Nausea 06/07/20 12/21/21 tablet oxycodone 5 mg tablet 5 mg PO Q4-6H PRN Pain 06/07/20 12/21/21 cholecalciferol (vitamin D3) 25 25 mcg PO DAILY 06/10/20 12/21/21 mcg (1,000 unit) capsule empagliflozin 25 mg tablet 25 mg PO DAILY 06/13/20 12/21/21 (Jardiance) nortriptyline 10 mg PO DAILY PRN Insomnia 12/05/20 12/21/21 multivitamin 1 tab PO DAILY 04/28/21 12/21/21 clopidogrel 75 mg tablet (Plavix) 75 mg PO DAILY 12/07/21 12/21/21 Previous Rx's Medication Instructions Recorded walker #1 ea 05/08/20 simethicone 125 mg capsule (Gas 125 mg PO BID-QID PRN abdominal 06/27/20 Relief (simethicone)) distention #20 caps aspirin 81 mg tablet,delayed 81 mg PO DAILY #30 tabs 12/27/20 release vitamin A 10,000 unit capsule 1 cap PO DAILY #30 caps 05/08/21 azathioprine 50 mg tablet (Imuran) 50 mg PO DAILY #60 tabs 05/24/21 sucralfate 100 mg/mL oral 10 ml PO BID #1,000 mL 07/03/21 suspension (Carafate) lansoprazole 30 mg capsule,delayed 30 mg PO DAILY #60 caps 10/19/21 release rifaximin 550 mg tablet (Xifaxan) 550 mg PO BID #60 tabs 11/17/21 atorvastatin 40 mg tablet 40 mg PO BEDTIME #30 tabs 12/21/21 meclizine 25 mg tablet 25 mg PO TID PRN dizziness #14 tabs 01/06/22 Allergies Allergy/AdvReac Type Severity Reaction Status Date / Time duloxetine [From CYMBALTA] Allergy Intermediate SHAKINESS Verified 12/20/21 10:41 Review of Systems Review of Systems: Constitutional: No Fever, No Chills, No Night Sweats, + Fatigue, No Malaise ENT/Mouth: No Ear Pain, No Nasal Congestion, No Sinus Pain, No Hoarseness, No sore throat, No Rhinorrhea, No Swallowing Difficulty Eyes: No Eye Pain, No Swelling, No Redness, No Vision Changes Cardiovascular: + Chest Pain, + SOB, + Dyspnea on Exertion, No Orthopnea, No Edema, No Palpitations Respiratory: No Cough, No Sputum, No Wheezing, No Dyspnea Gastrointestinal: + Nausea, No Vomiting, No Diarrhea, No Constipation, No Abdominal pain Genitourinary: No Dysuria, No Urinary Frequency, No Hematuria, No Urinary Incontinence/retention, No Flank Pain, No Urinary Flow Changes Musculoskeletal: No joint pain, No Myalgias, No Joint Swelling Skin: No Skin Lesions, No rash Neuro: + Weakness, No Numbness, No Paresthesias, No Loss of Consciousness, + Dizziness, No Headache Yes all other systems are reviewed and are negative Constitutional: Constitutional: Reports as per HPI Neurologic: Denies Abnormal speech present [facility] Past Medical History Attestation statement: The following information was validated with the patient. Medical History Abdominal bloating Antiphospholipid antibody syndrome Arthritis Autoimmune hepatitis Cirrhosis Cirrhosis Diabetes POOL (dyspnea on exertion) Fibromyalgia Gallstones High blood pressure Leg pain, right Lupus Nonalcoholic steatohepatitis (SHARMA) Surgical History History of carpal tunnel release History of cataract surgery (2010) History of cervical discectomy (07/2009) History of colonoscopy History of heart artery stent History of repair of right rotator cuff (08/2011) History of shoulder surgery Hx of cholecystectomy Hx of endoscopy Family History Family History Father History of heart bypass surgery History of diabetes mellitus, type II History of hypertension Mother History of diabetes mellitus, type II Brother History of gout Paternal Uncle History of stomach cancer Social History Social History Household Members: None Housing: Apartment Are you a primary critical care technician to a significant other at home: No 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 have visiting nurse or other home services: 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) Alcohol intake: never Patient Tobacco Use Status: Never used Tobacco Use of substances other than those prescribed or required for medical reasons: No Advance Directives: No Advance Directives Information Provided: No Patient : No service: No Current occupational status: disabled Physical Exam Vital Signs: Vital Signs: Last Vital Signs Temp 98.1 F 01/06/22 14:00 Pulse 83 01/06/22 14:00 Resp 18 01/06/22 14:00 BP 128/70 01/06/22 14:00 Pulse Ox 96 01/06/22 14:00 O2 Del Method 01/06/22 14:00 BMI result Body Mass Index 27.3 Const: General: cooperative, healthy appearing, no acute distress, alert and awake Orientation/consciousness: patient oriented x3 Limitations: no limitations HEENT: Head: Yes normal to inspection and Yes atraumatic Ears: hearing grossly normal bilaterally General nose exam: Normal external nose present Face and sinus: Yes normal facial exam Mouth: Normal oral and palatal mucosa present Throat: Yes posterior oropharynx normal, Yes tonsils normal, Yes uvula midline and No uvular edema Eyes: General: appearance normal, both eyes and all related structures Pupils: Equal, round and reactive pupils present EOM: EOMs intact bilaterally Neck: Neck: Yes normal visual inspection, Yes no meningeal signs and Yes supple Resp: Effort & Inspection: normal respiratory effort and no respiratory dist ress Auscultation: clear to auscultation bilaterally, no crackles, no rales, no rhonchi and no wheezes Cardio: Rate: regular rate Heart sounds: S1 normal heart sound present and S2 normal heart sound present GI: Inspection: Yes normal to inspection Palpation (GI): Soft to palpation, nontender, no guarding and not rigid : General: Yes no CVA tenderness Back/Spine/Pelvis: Back: no CVA tenderness Skin: Rashes: no rashes Wounds: no wounds Neuro: Other: Dizziness elicited on head movements/position change General: patient oriented x3, gait normal, tone normal, moves all extremities, no meningeal signs, no focal motor deficits and CN's II-XI intact bilaterally Cranial nerves: Yes CN's II-XII intact bilaterally, Yes Equal, round and reactive pupils present, Yes Bilaterally intact EOM present, Yes Nystagmus not present and Yes Normal facial strength present Cognition (Neuro): normal cognition Speech: No Abnormal speech present Gait exam (Neuro): Normal gait present Motor exam (neuro): 5/5 motor strength present throughout, Pronator motor function not present and no tremor noted Coordination: [id number] test normal Romberg Test: Negative Extrem: General: Yes normal to inspection, Yes no pedal edema and Yes no calf tenderness Course Course Course Narrative: -1551--no leukocytosis. Initial troponin negative XR chest 1V IMPRESSION: No evidence for acute disease in the chest. ? CT head/brain wo con IMPRESSION: No acute intracranial pathology. -2100--difficulty in obtaining patient's labs, hemolyzed twice. Acute on c hronically elevated AST/ALT. Second troponin negative -patient reports symptomatic improvement in the emergency department, asymptomatic at present. Discussed worrisome signs and symptoms and strict return precautions and need close follow-up with PCP. She verbalized understanding feel safe for discharge home at this time MDM - Chest Pain MDM Narrative Medical decision making narrative: 61-year-old female with past medical history of cirrhosis, diabetes, fibromyalgia, HTN, lupus, CAD s/p stent placement on 12/05/2021, presenting to the ED complaining of chest discomfort/burning beginning last night worsening today with radiation down RUE, SOB, generalized fatigue/weakness and room spinning dizziness. On exam vital signs stable, NAD, no focal neuro deficits, dizziness elicited on head movement/position change. Lungs CTA, no pedal edema/calf tenderness. Concern for ACS vs BPPV/vertigo vs CHF although not clinically in fluid overload. Lower suspicion for SAH/meningitis or CVT Upon chart review patient recently saw commercial loan analyst complaining of similar symptoms. Plan: EKG, labs, CXR, head CT, p.o. meclizine, re-evaluate Differential Diagnosis Differential diagnosis: Likely stable angina, unstable angina pectoris, atypical chest pain and chest pain Medical Records Data Attestation: I reviewed the patient's medical records. Lab Data Attestation: I reviewed the patient's lab results. Result diagrams: 01/06/22 15:03 01/06/22 20:20 Labs: Lab Results 01/06/22 01/06/22 01/06/22 Range/Units 15:03 15:03 15:03 WBC 8.6 (4.8-10.8) X10*3/uL RBC 4.36 (4.20-5.50) X10*6/uL Hgb 11.8 L (12.0-16.0) g/dl Hct 37.7 (37.0-47.0) % MCV 86.5 (80.0-98.0) fL MCH 27.1 (27.0-33.0) pg MCHC 31.3 (31.0-35.0) g/dl RDW 14.5 (11.0-16.0) % Plt Count 265 (160-400) X10*3/uL MPV 9.4 (9.4-12.3) fL Immature Gran % (Auto) 0.4 (0.0-0.4) % Neut % (Auto) 71.4 (45-73) % Lymph % (Auto) 16.0 L (20-40) % Barton % (Auto) 9.2 (2-11) % Eos % (Auto) 2.3 (0-4) % Baso % (Auto) 0.7 (0-2) % Lymph # (Auto) 1.4 (1.2-4.9) X10*3/uL Barton # (Auto) 0.8 (0.1-1.2) X10*3/uL Eos # (Auto) 0.2 (0.0-0.4) X10*3/uL Baso # (Auto) 0.1 (0.0-0.2) X10*3/uL Abs Immat Gran (auto) 0.03 (0.00-0.03) X10*3/uL Absolute Neuts (auto) 6.1 (2.0-8.3) x10*3/uL Absolute Nucleated RBC 0.000 (0.0-0.012) X10*3/uL Nucleated RBC % (auto) 0.0 (0.0-0.2) /100WBC PT (10.0-13.1) SEC INR (0.9-1.1) Sodium Potassium Chloride Carbon Dioxide Anion Gap BUN Creatinine Estim Creat Clear Calc Estimated GFR Random Glucose Calcium Magnesium Total Bilirubin Direct Bilirubin AST ALT Alkaline Phosphatase Troponin I High Sens < 3.5 (<3.5-17.0) ng/L B-Natriuretic Peptide (<100) pg/mL Total Protein Albumin COVID-19 (HITESH) Negative (Negative) COVID-19 Clin Com See Note 01/06/22 01/06/22 01/06/22 Range/Units 15:03 15:03 18:10 WBC (4.8-10.8) X10*3/uL RBC (4.20-5.50) X10*6/uL Hgb (12.0-16.0) g/dl Hct (37.0-47.0) % MCV (80.0-98.0) fL MCH (27.0-33.0) pg MCHC (31.0-35.0) g/dl RDW (11.0-16.0) % Plt Count (160-400) X10*3/uL MPV (9.4-12.3) fL Immature Gran % (Auto) (0.0-0.4) % Neut % (Auto) (45-73) % Lymph % (Auto) (20-40) % Barton % (Auto) (2-11) % Eos % (Auto) (0-4) % Baso % (Auto) (0-2) % Lymph # (Auto) (1.2-4.9) X10*3/uL Barton # (Auto) (0.1-1.2) X10*3/uL Eos # (Auto) (0.0-0.4) X10*3/uL Baso # (Auto) (0.0-0.2) X10*3/uL Abs Immat Gran (auto) (0.00-0.03) X10*3/uL Absolute Neuts (auto) (2.0-8.3) x10*3/uL Absolute Nucleated RBC (0.0-0.012) X10*3/uL Nucleated RBC % (auto) (0.0-0.2) /100WBC PT 11.8 (10.0-13.1) SEC INR 1.0 (0.9-1.1) Sodium Cancelled Potassium Cancelled Chloride Cancelled Carbon Dioxide Cancelled Anion Gap Cancelled BUN Cancelled Creatinine Cancelled Estim Creat Clear Calc Cancelled Estimated GFR Cancelled Random Glucose Cancelled Calcium Cancelled Magnesium Cancelled Total Bilirubin Cancelled Direct Bilirubin Cancelled AST Cancelled ALT Cancelled Alkaline Phosphatase Cancelled Troponin I High Sens (<3.5-17.0) ng/L B-Natriuretic Peptide < 10 (<100) pg/mL Total Protein Cancelled Albumin Cancelled COVID-19 (HITESH) (Negative) COVID-19 Clin Com 01/06/22 01/06/22 Range/Units 18:10 20:20 WBC (4.8-10.8) X10*3/uL RBC (4.20-5.50) X10*6/uL Hgb (12.0-16.0) g/dl Hct (37.0-47.0) % MCV (80.0-98.0) fL MCH (27.0-33.0) pg MCHC (31.0-35.0) g/dl RDW (11.0-16.0) % Plt Count (160-400) X10*3/uL MPV (9.4-12.3) fL Immature Gran % (Auto) (0.0-0.4) % Neut % (Auto) (45-73) % Lymph % (Auto) (20-40) % Barton % (Auto) (2-11) % Eos % (Auto) (0-4) % Baso % (Auto) (0-2) % Lymph # (Auto) (1.2-4.9) X10*3/uL Barton # (Auto) (0.1-1.2) X10*3/uL Eos # (Auto) (0.0-0.4) X10*3/uL Baso # (Auto) (0.0-0.2) X10*3/uL Abs Immat Gran (auto) (0.00-0.03) X10*3/uL Absolute Neuts (auto) (2.0-8.3) x10*3/uL Absolute Nucleated RBC (0.0-0.012) X10*3/uL Nucleated RBC % (auto) (0.0-0.2) /100WBC PT (10.0-13.1) SEC INR (0.9-1.1) Sodium 137 Potassium 4.3 Chloride 101 Carbon Dioxide 24 Anion Gap 16 BUN 11 Creatinine 0.71 Estim Creat Clear Calc 75.1 Estimated GFR > 60 Random Glucose 83 Calcium 8.9 Magnesium 1.8 Total Bilirubin 0.8 Direct Bilirubin 0.5 AST 103 H ALT 66 H Alkaline Phosphatase 267 H D Troponin I High Sens < 3.5 (<3.5-17.0) ng/L B-Natriuretic Peptide (<100) pg/mL Total Protein 8.5 H Albumin 3.8 COVID-19 (HITESH) (Negative) COVID-19 Clin Com Discharge Plan Discharge Clinical Impression: Chest pain, Benign paroxysmal positional vertigo Patient Disposition: Home, Self-Care Instructions: Chest Pain (DC), Benign Paroxysmal Positional Vertigo (ED) Additional Instructions: Your blood work was reassuring today in the emergency department. Your head CT and chest x-ray were unremarkable. It is important to have close follow-up with her doctor and commercial loan analyst. Her dizziness is likely vertigo, meclizine will help with the symptoms, take as needed. If symptoms persist or worsen, if headache, vision change, weakness, persistent chest pain or shortness of breath return to the emergency department Prescriptions: New meclizine 25 mg tablet 25 mg PO TID PRN (Reason: dizziness) Qty: 14 0RF No Action simethicone [Gas Relief (simethicone)] 125 mg capsule 125 mg PO BID-QID PRN (Reason: abdominal distention) Qty: 20 0RF aspirin 81 mg tablet,delayed release (DR/EC) 81 mg PO DAILY Qty: 30 5RF vitamin A 10,000 unit capsule 1 cap PO DAILY Qty: 30 2RF azathioprine [Imuran] 50 mg tablet 50 mg PO DAILY Qty: 60 3RF sucralfate [Carafate] 100 mg/mL suspension 10 ml PO BID Qty: 1000 2RF lansoprazole 30 mg capsule,delayed release(DR/EC) 30 mg PO DAILY Qty: 60 2RF Xifaxan 550 mg tablet 550 mg PO BID Qty: 60 6RF lorazepam 0.5 mg tablet 0.5 mg PO QID PRN (Reason: Anxiety) ondansetron 4 mg tablet,disintegrating 4 mg PO Q6-8H PRN (Reason: Nausea) loratadine 10 mg Tablet 10 mg PO DAILY PRN (Reason: Allergy Symptoms) oxycodone 5 mg tablet 5 mg PO Q4-6H PRN (Reason: Pain) nortriptyline 10 mg PO DAILY PRN (Reason: Insomnia) clopidogrel [Plavix] 75 mg Tablet 75 mg PO DAILY (DME) shade [facility] [place] See Rx Instructions .ROUTE .MEDSUPPLY Qty: 1 0RF Rx Instructions: As directed Jardiance 25 mg Tablet 25 mg PO DAILY multivitamin Tablet 1 tab PO DAILY fluticasone propionate 50 mcg/actuation spray,suspension 50 mcg intranasal DAILY PRN (Reason: Nasal Congestion) albuterol sulfate 90 mcg/actuation HFA aerosol inhaler 90 mcg inhalation BID PRN (Reason: Shortness Of Breath) metformin 500 mg tablet 500 mg PO BID glipizide 10 mg tablet 10 mg PO DAILY lisinopril 2.5 mg tablet 2.5 mg PO DAILY cholecalciferol (vitamin D3) 25 mcg (1,000 unit) capsule 25 mcg PO DAILY atorvastatin 40 mg tablet 40 mg PO BEDTIME Qty: 30 5RF Referrals: Eduardo Garcia MD [Primary Care Provider] - 3 days
--- NOTE | 2022-01-06 14:27 | ECG_ITS ---
Test Reason : chest pain Blood Pressure : / mmHG Vent. Rate : 092 BPM Atrial Rate : 092 BPM P-R Int : 160 ms QRS Dur : 070 ms QT Int : 342 ms P-R-T Axes : 051 022 041 degrees QTc Int : 422 ms Sinus rhythm with Fusion complexes Otherwise normal ECG When compared with ECG of 03-MAY-2021 12:12, Fusion complexes are now Present T wave inversion no longer evident in Inferior leads Referred By: Lesli Mendez Electronically Signed By:CORIN JONES
[2022-01-06] MEDS: Meclizine HCl 25 MG TABLET PO (15:08)
[2022-01-06] MEDS: ondansetron HCL 4 MG/2 ML VIAL IVPUSH (15:08)
[2022-01-06 15:12] LABS: MANUAL DIFF FLAG NO
--- NOTE | 2022-01-06 15:16 | PC.NURSE ---
patient a&ox3, lungs dim, rt hand pain 3/10, cardiac cath technician applied nsr with pvcs 80s, vitals otherwise stable, ekg done in triage, iv inserted, labs drawn, covid swab drawn, medicated per order, call corado within reach, will continue to monitor.
[2022-01-06 15:17] LABS: Basophils Absolute Auto 0.1 X10*3/uL (0.0-0.2); Basophils Percent Auto 0.7 % (0-2); Eosinophils Absolute Auto 0.2 X10*3/uL (0.0-0.4); Eosinophils Percent Auto 2.3 % (0-4); Hematocrit 37.7 % (37.0-47.0); Hemoglobin 11.8 g/dl (12.0-16.0); Imm Gran Abs Auto 0.03 X10*3/uL (0.00-0.03); Imm Gran Pct Auto 0.4 % (0.0-0.4); Lymphocytes Absolute Auto 1.4 X10*3/uL (1.2-4.9); Mean Corpuscular HGB Conc 31.3 g/dl (31.0-35.0); Mean Corpuscular Hemoglobin 27.1 pg (27.0-33.0); Mean Corpuscular Volume 86.5 fL (80.0-98.0); Mean Platelet Volume 9.4 fL (9.4-12.3); Monocytes Absolute Auto 0.8 X10*3/uL (0.1-1.2); Monocytes Percent Auto 9.2 % (2-11); Neutrophils Absolute Auto 6.1 x10*3/uL (2.0-8.3); Neutrophils Percent Auto 71.4 % (45-73); Platelet Count 265 X10*3/uL (160-400); Red Blood Count 4.36 X10*6/uL (4.20-5.50); Red Cell Distribution Width 14.5 % (11.0-16.0); White Blood Count 8.6 X10*3/uL (4.8-10.8)
[2022-01-06 15:22] LABS: Prothrombin Time 11.8 SEC (10.0-13.1)
[2022-01-06 15:30] LABS: COVID-19 Test Negative (Negative)
[2022-01-06 15:32] LABS: B Type Natriuretic Peptide < 10 pg/mL (<100); Troponin-I High Sensitivity < 3.5 ng/L (<3.5-17.0)
[2022-01-06 18:43] LABS: Troponin-I High Sensitivity < 3.5 ng/L (<3.5-17.0)
[2022-01-06 20:56] LABS: Alanine Aminotransferase 66 U/L (0-31); Albumin Level 3.8 g/dL (3.5-5.0); Alkaline Phosphatase 267 U/L (39-117); Anion Gap 16 (12-20); Aspartate Amino Transferase 103 U/L (5-31); Bilirubin Direct 0.5 mg/dL (0.0-0.5); Bilirubin Total 0.8 mg/dL (0.0-1.0); Blood Urea Nitrogen 11 mg/dL (9-16); Calcium 8.9 mg/dL (8.4-10.2); Carbon Dioxide 24 mmol/L (22-29); Chloride 101 mmol/L (96-108); Creatinine Clr Calc Pharmacy 75.1; Estimated Glomerular Filt Rate > 60; Glucose Random 83 mg/dL (60-115); Magnesium 1.8 mg/dL (1.6-2.6); Potassium 4.3 mmol/L (3.3-5.1); Sodium 137 mmol/L (135-145); Total Protein 8.5 g/dL (6.5-8.0)
== END 2022-01-06 21:43 | disposition home or self-care (01) ==
PROVIDERS: Physician Assistant; Emergency Provider Emergency Medicine Emergency Medical Services; PCP Internal Medicine
DX: R07.9 Chest pain, unspecified (principal); H81.10 Benign paroxysmal vertigo, unspecified ear; R06.02 Shortness of breath; Z20.822 Contact with and (suspected) exposure to COVID-19; E11.9 Type 2 diabetes mellitus without complications; I10 Essential (primary) hypertension; E78.5 Hyperlipidemia, unspecified; Z79.84 Long term (current) use of oral hypoglycemic drugs; Z79.899 Other long term (current) drug therapy; Z79.02 Long term (current) use of antithrombotics/antiplatelets; Z79.82 Long term (current) use of aspirin
CPT/HCPCS: 36415; 70450; 71045; 80048; 80076; 83735; 83880; 84484; 85025; 85610; 87635; 93005; 96374; 99284; J2405

== ENCOUNTER 2022-02-06 10:03 | Outpatient (REF) | payer MEDICARE, MEDICAID, SELFPAY ==
[2022-01-10 12:10] VITALS: BP 112/66; BP 128/58
[2022-02-06 07:06] VITALS: BP 116/56; BMI 27.1
[2022-02-06 10:24] LABS: MANUAL DIFF FLAG NO
[2022-02-06 12:08] LABS: Basophils Percent Auto 0.9 % (0-2); Eosinophils Absolute Auto 0.2 X10*3/uL (0.0-0.4); Eosinophils Percent Auto 3.9 % (0-4); Hemoglobin 11.6 g/dl (12.0-16.0); Imm Gran Abs Auto 0.01 X10*3/uL (0.00-0.03); Imm Gran Pct Auto 0.2 % (0.0-0.4); Lymphocytes Absolute Auto 1.2 X10*3/uL (1.2-4.9); Lymphocytes Percent Auto 27.7 % (20-40); Mean Corpuscular HGB Conc 31.4 g/dl (31.0-35.0); Mean Corpuscular Hemoglobin 27.3 pg (27.0-33.0); Mean Corpuscular Volume 87.1 fL (80.0-98.0); Mean Platelet Volume 10.4 fL (9.4-12.3); Monocytes Absolute Auto 0.5 X10*3/uL (0.1-1.2); Monocytes Percent Auto 11.9 % (2-11); Neutrophils Absolute Auto 2.4 x10*3/uL (2.0-8.3); Neutrophils Percent Auto 55.4 % (45-73); Platelet Count 255 X10*3/uL (160-400); Red Blood Count 4.25 X10*6/uL (4.20-5.50); Red Cell Distribution Width 17.3 % (11.0-16.0); White Blood Count 4.4 X10*3/uL (4.8-10.8)
[2022-02-06 12:09] LABS: Appearance Urine Clear; Color Urine Yellow; Glucose Urine UA >=1000 mg/dL (Negative); Leukocyte Esterase Urine Trace (Negative); Nitrite Urine Negative (Negative); PH 6.5 (5.0-9.0); UMIC TRIGGER UA YES; Urine Blood Negative (Negative); Urine Ketones Trace mg/dL (Negative); Urine Protein Negative (Neg-Trace)
[2022-02-06 12:10] LABS: Estimated Average Glucose 160 mg/dL; Hemoglobin A1c % 7.2 %
[2022-02-06 12:32] LABS: Bacteria Urine None Seen (None Seen); Hyaline Casts Urine 0-2 /LPF (0-2); RBC Urine 0-2 /HPF (0-2); WBC Urine 0-5 /HPF (0-5)
[2022-02-06 12:40] LABS: Creatinine Urine 49.92 mg/dL; Microalbumin Urine < 5.0 mg/L
[2022-02-06 12:43] LABS: Alanine Aminotransferase 77 U/L (0-31); Albumin Level 3.8 g/dL (3.5-5.0); Alkaline Phosphatase 337 U/L (39-117); Anion Gap 16 (12-20); Aspartate Amino Transferase 119 U/L (5-31); Bilirubin Total 0.9 mg/dL (0.0-1.0); Blood Urea Nitrogen 10 mg/dL (9-16); Calcium 9.4 mg/dL (8.4-10.2); Carbon Dioxide 25 mmol/L (22-29); Chloride 102 mmol/L (96-108); Cholesterol 139 mg/dL; Estimated Glomerular Filt Rate > 60; Glucose Random 150 mg/dL (60-115); HDL Cholesterol 33 mg/dL; LDL Cholesterol Calculated 81 mg/dl; Potassium 4.5 mmol/L (3.3-5.1); Sodium 138 mmol/L (135-145); Total Protein 9.7 g/dL (6.5-8.0); Triglycerides 127 mg/dL
[2022-02-06 13:03] LABS: Free T4 (Free Thyroxine) 0.95 ng/dL (0.71-1.85); Thyroid Stimulating Hormone 2.42 uIU/mL (0.32-4.0)
== END 2022-02-06 10:04 | disposition home or self-care (01) ==
LOC: HO.LAB 10:03
PROVIDERS: PCP Internal Medicine; Visit Provider Internal Medicine
DX: M54.41 Lumbago with sciatica, right side (principal); M54.42 Lumbago with sciatica, left side; E11.9 Type 2 diabetes mellitus without complications; I25.10 Atherosclerotic heart disease of native coronary artery without angina pectoris; Z95.5 Presence of coronary angioplasty implant and graft
CPT/HCPCS: 36415; 80053; 80061; 81001; 82043; 83036; 84439; 84443; 85025

== ENCOUNTER 2022-03-08 12:32 | Outpatient (REF) | payer MEDICARE, MEDICAID, SELFPAY ==
[2022-01-10 12:10] VITALS: BP 112/66; BP 128/58
[2022-03-06 07:27] VITALS: BP 128/60; BMI 27.1
[2022-03-08 13:31] LABS: Alanine Aminotransferase 35 U/L (0-31); Albumin Level 3.9 g/dL (3.5-5.0); Alkaline Phosphatase 203 U/L (39-117); Aspartate Amino Transferase 62 U/L (5-31); Bilirubin Direct 0.3 mg/dL (0.0-0.5); Bilirubin Total 0.5 mg/dL (0.0-1.0); Total Protein 8.9 g/dL (6.5-8.0)
== END 2022-03-08 12:33 | disposition home or self-care (01) ==
LOC: HO.LAB 12:32
PROVIDERS: PCP Internal Medicine; Visit Provider Internal Medicine
DX: E78.00 Pure hypercholesterolemia, unspecified (principal)
CPT/HCPCS: 36415; 80076

== ENCOUNTER → 2022-04-09 13:49 | Outpatient (BNVA) | payer MEDICARE, MEDICAID, SELFPAY ==
[2022-03-27 09:43] VITALS: BP 128/60; BMI 27.1
== END ==
PROVIDERS: PCP Internal Medicine; Referring Provider Internal Medicine; Visit Provider Internal Medicine Cardiovascular Disease
DX: Z98.890 Other specified postprocedural states (principal); Z95.5 Presence of coronary angioplasty implant and graft
CPT/HCPCS: 99212

== ENCOUNTER 2022-04-23 10:04 | Outpatient (REF) | payer MEDICARE, MEDICAID, SELFPAY ==
[2022-03-27 09:43] VITALS: BP 128/60; BMI 27.1
[2022-04-23 11:52] LABS: Alanine Aminotransferase 29 U/L (0-31); Albumin Level 4.1 g/dL (3.5-5.0); Alkaline Phosphatase 172 U/L (39-117); Aspartate Amino Transferase 43 U/L (5-31); Bilirubin Direct 0.3 mg/dL (0.0-0.5); Bilirubin Total 0.5 mg/dL (0.0-1.0)
== END 2022-04-23 10:05 | disposition home or self-care (01) ==
LOC: HO.LAB 10:04
PROVIDERS: PCP Internal Medicine; Visit Provider Internal Medicine
DX: R79.89 Other specified abnormal findings of blood chemistry (principal)
CPT/HCPCS: 36415; 80076

== ENCOUNTER 2022-04-25 09:18 | Outpatient (REF) | payer MEDICARE, MEDICAID, SELFPAY ==
[2022-01-10 12:10] VITALS: BP 112/66; BP 128/58
[2022-03-06 07:27] VITALS: BP 128/60; BMI 27.1
[2022-03-27 09:43] VITALS: BP 128/60; BMI 27.1
--- NOTE | ~2022-04-25 | FL_ITS ---
PROCEDURE: XR GI SERIES CLINICAL INFORMATION: Dysphagia. COMPARISON: None TECHNIQUE: Routine upper GI air-contrast study was performed. FINDINGS: Following oral administration of thick barium and effervescent granules there is normal propagation of bolus from the oral cavity through the pharynx, esophagus into stomach without any evidence of obstruction, narrowing or stricture. No extrinsic compression seen. No laryngeal penetration or aspiration seen. On placing patient supine and prone lying the course, caliber and peristalsis of stomach, duodenal bulb and the sweep is normal. The mucosal pattern of the stomach is normal. There is moderate gastroesophageal reflux without hiatal hernia. FLUOROSCOPY TIME: 1.6 minutes DOSE AREA PRODUCT: 29.206 uGy-m2 (microgray-meter squared) FL/FL upper GI series IMPRESSION: Moderate gastroesophageal reflux without hiatal hernia.
== END 2022-04-25 09:19 | disposition home or self-care (01) ==
LOC: HO.XRAY 09:18
PROVIDERS: PCP Internal Medicine; Visit Provider Internal Medicine Gastroenterology
DX: R13.10 Dysphagia, unspecified (principal); R10.10 Upper abdominal pain, unspecified
CPT/HCPCS: 74240

== ENCOUNTER → 2022-04-30 11:06 | Outpatient (BNVA) | payer MEDICARE, MEDICAID, SELFPAY ==
[2022-03-27 09:43] VITALS: BP 128/60; BMI 27.1
== END ==
PROVIDERS: PCP Internal Medicine; Visit Provider Internal Medicine Gastroenterology
DX: K74.60 Unspecified cirrhosis of liver (principal); K80.20 Calculus of gallbladder without cholecystitis without obstruction; M32.9 Systemic lupus erythematosus, unspecified; K59.03 Drug induced constipation; T40.605A Adverse effect of unspecified narcotics, initial encounter
CPT/HCPCS: 99212

== ENCOUNTER 2022-05-25 09:04 | Outpatient (REF) | payer MEDICARE, MEDICAID, SELFPAY ==
[2022-03-27 09:43] VITALS: BP 128/60; BMI 27.1
[2022-05-25 09:39] LABS: Estimated Average Glucose 163 mg/dL; Hemoglobin A1c % 7.3 %
[2022-05-25 12:18] LABS: Alanine Aminotransferase 25 U/L (0-31); Albumin Level 3.8 g/dL (3.5-5.0); Alkaline Phosphatase 169 U/L (39-117); Anion Gap 13 (12-20); Aspartate Amino Transferase 47 U/L (5-31); Bilirubin Total 0.4 mg/dL (0.0-1.0); Blood Urea Nitrogen 7 mg/dL (9-16); Calcium 9.2 mg/dL (8.4-10.2); Carbon Dioxide 24 mmol/L (22-29); Chloride 106 mmol/L (96-108); Cholesterol 121 mg/dL; Estimated Glomerular Filt Rate > 60; Glucose Random 140 mg/dL (60-115); HDL Cholesterol 35 mg/dL; LDL Cholesterol Calculated 60 mg/dl; Potassium 4.3 mmol/L (3.3-5.1); Sodium 139 mmol/L (135-145); Total Protein 8.8 g/dL (6.5-8.0); Triglycerides 130 mg/dL
== END 2022-05-25 09:05 | disposition home or self-care (01) ==
LOC: HO.LAB 09:04
PROVIDERS: PCP Internal Medicine; Visit Provider Internal Medicine
DX: E11.9 Type 2 diabetes mellitus without complications (principal); E78.00 Pure hypercholesterolemia, unspecified; R79.89 Other specified abnormal findings of blood chemistry
CPT/HCPCS: 36415; 80053; 80061; 83036

== ENCOUNTER 2022-07-27 09:06 | Outpatient (REF) | payer MEDICARE, MEDICAID, SELFPAY ==
[2022-03-27 09:43] VITALS: BP 128/60; BMI 27.1
[2022-07-27 10:09] LABS: MANUAL DIFF FLAG NO
[2022-07-27 10:25] LABS: Basophils Absolute Auto 0.1 X10*3/uL (0.0-0.2); Basophils Percent Auto 0.9 % (0-2); Eosinophils Absolute Auto 0.2 X10*3/uL (0.0-0.4); Eosinophils Percent Auto 3.5 % (0-4); Hematocrit 35.9 % (37.0-47.0); Hemoglobin 11.5 g/dl (12.0-16.0); Imm Gran Abs Auto 0.01 X10*3/uL (0.00-0.03); Imm Gran Pct Auto 0.2 % (0.0-0.4); Lymphocytes Absolute Auto 1.1 X10*3/uL (1.2-4.9); Mean Corpuscular Hemoglobin 26.6 pg (27.0-33.0); Mean Corpuscular Volume 82.9 fL (80.0-98.0); Mean Platelet Volume 9.5 fL (9.4-12.3); Monocytes Absolute Auto 0.6 X10*3/uL (0.1-1.2); Neutrophils Absolute Auto 3.6 x10*3/uL (2.0-8.3); Neutrophils Percent Auto 65.4 % (45-73); Platelet Count 234 X10*3/uL (160-400); Red Blood Count 4.33 X10*6/uL (4.20-5.50); Red Cell Distribution Width 15.9 % (11.0-16.0); White Blood Count 5.5 X10*3/uL (4.8-10.8)
[2022-07-27 10:26] LABS: INTERNATIONAL NORM RATIO 1.1 (0.9-1.1); Prothrombin Time 12.2 SEC (10.0-13.1)
[2022-07-27 10:32] LABS: Alanine Aminotransferase 32 U/L (0-31); Albumin Level 3.9 g/dL (3.5-5.0); Alkaline Phosphatase 173 U/L (39-117); Anion Gap 13 (12-20); Aspartate Amino Transferase 51 U/L (5-31); Bilirubin Total 0.7 mg/dL (0.0-1.0); Blood Urea Nitrogen 7 mg/dL (9-16); Carbon Dioxide 25 mmol/L (22-29); Chloride 102 mmol/L (96-108); Estimated Glomerular Filt Rate > 60; Glucose Random 125 mg/dL (60-115); Potassium 3.8 mmol/L (3.3-5.1); Sodium 136 mmol/L (135-145); Total Protein 8.9 g/dL (6.5-8.0)
[2022-07-27 11:01] LABS: Ferritin 19 ng/mL (10-250); Vitamin B12 570 pg/mL (200-900); Vitamin D 25-OH Total 37.1 ng/mL (>30)
[2022-07-31 16:23] LABS: Zinc 55 mcg/dL (60-130)
[2022-08-01 06:09] LABS: Vitamin A 30 mcg/dL (38-98)
[2022-08-01 06:13] LABS: Alpha-Tocopherol 9.5 mg/L (5.7-19.9); Beta-Gamma Tocopherol <1.0 mg/L (<=4.3)
[2022-08-01 19:03] LABS: Vitamin K1 322 pg/mL (130-1500)
[2022-08-01 20:09] LABS: Vitamin C 0.7 mg/dL (0.3-2.7)
[2022-08-02 16:33] LABS: Vitamin B1 7 nmol/L (8-30)
[2022-08-03 01:58] LABS: Nicotinamide 20 ng/mL; Vit B3 - Nicotinic Acid <20 ng/mL; Vitamin B5 (Pantothenic Acid) 41 ng/mL (<275)
[2022-08-06 14:28] LABS: Vitamin B6 10.1 ng/mL (2.1-21.7)
== END 2022-07-27 09:07 | disposition home or self-care (01) ==
LOC: HO.LAB 09:06
PROVIDERS: PCP Internal Medicine; Visit Provider Internal Medicine Gastroenterology
DX: K74.60 Unspecified cirrhosis of liver (principal); K75.81 Nonalcoholic steatohepatitis (NASH); K75.4 Autoimmune hepatitis
CPT/HCPCS: 36415; 80053; 80299; 82180; 82306; 82607; 82728; 82746; 84207; 84425; 84446; 84590; 84591; 84597; 84630; 85025; 85610; 99212

== ENCOUNTER → 2022-07-30 10:59 | Outpatient (BNVA) | payer MEDICARE, MEDICAID, SELFPAY ==
[2022-03-27 09:43] VITALS: BP 128/60; BMI 27.1
== END ==
PROVIDERS: PCP Internal Medicine; Referring Provider Internal Medicine; Visit Provider Internal Medicine Cardiovascular Disease
DX: R06.00 Dyspnea, unspecified (principal); R07.89 Other chest pain; Z95.5 Presence of coronary angioplasty implant and graft; Z98.890 Other specified postprocedural states
CPT/HCPCS: 99212

== ENCOUNTER 2022-08-28 09:45 | Outpatient (REF) | payer MEDICARE, MEDICAID, SELFPAY ==
[2022-03-27 09:43] VITALS: BP 128/60; BMI 27.1
--- NOTE | ~2022-08-28 | US_ITS ---
EXAMINATION: US ABDOMEN LIMITED WITH LIVER ELASTOGRAPHY CLINICAL INFORMATION: Nonalcoholic steatohepatitis. COMPARISON: None available. TECHNIQUE: Real-time imaging of the abdominal viscera. Noninvasive ultrasound liver fibrosis assessment is performed using Jimmie ElastPQ point quantification shear wave elastography (2D-SWE) with a C5-2 MHz transducer. Multiple elastography samples are obtained. FINDINGS: PANCREAS: There is a hypoechoic area seen near the head of the pancreas, question lymph node. Measures 3.9 x 1.5 x 1.2 cm. Visualized pancreas is homogeneous in echotexture. No peripancreatic fluid collection. No focal lesion within the pancreas. LIVER: The liver demonstrates normal size, contour and increased echogenicity. No focal lesion or intrahepatic biliary duct dilatation. The right lobe measures 2.07 cm in length. The left lobe measures 0.07 cm in length. Portal flow is hepatopedal. Shear wave liver elastography median stiffness is 2.07 m/s (reference: normal median stiffness is 1.3 m/s or less). IQR/median stiffness to assess sampling precision is 0.07 (reference: good quality data set is IQR/median stiffness of 0.15 or less). GALLBLADDER: The gallbladder has been surgically removed. COMMON BILE DUCT: Normal in caliber measuring 0.5-0.9 cm in diameter. RIGHT KIDNEY: There is mild hydronephrosis suspected. No renal calculi or focal parenchymal lesions. The kidney measures 11.4 cm in maximum dimension. There are normal bilateral ureteral jets in bladder because of mild right renal hydronephrosis and hydroureter. FREE FLUID: None. US/US abdomen manrique w elastography IMPRESSION: 1. Hepatic steatosis without focal lesion. 2. Likely lymph node lateral to the pancreatic head. The pancreas is unremarkable. 3. Liver elastography: Median liver stiffness measures 2.07 cm corresponding to cACLD ruled in. REFERENCE: Society of Radiologists in Ultrasound Liver Stiffness Thresholds (2020): LIVER STIFFNESS THRESHOLDS: *Liver Stiffness equal or less than 1.3 m/s: High probability of being normal. *Liver Stiffness less than 1.7 m/s: In the absence of other known clinical signs, rules out compensated advanced chronic liver disease. *Liver Stiffness 1.7-2.1 m/s: Suggestive of compensated advanced chronic liver disease but need further test for confirmation. *Liver Stiffness over 2.1 m/s: Rules in compensated advanced chronic liver disease. *Liver Stiffness over 2.4 m/s: Suggestive of clinically significant portal hypertension. QUALITY OF DATA SET: *IQR/Median value equal or less than 0.15 implies a quality data set. *IQR/Median value over 0.15 implies a poor quality data set. SIGNIFICANT CHANGE FROM PRIOR EXAM: Significant change if liver stiffness measurement is 10% or greater from prior exam. OTHER CONSIDERATIONS: The stage of liver fibrosis may be overestimated in the setting of acute hepatitis, liver inflammation, elevated liver function tests, hepatic vascular congestion, obstructive cholestasis, non-fasting state, and infiltrative diseases such as amyloidosis and lymphoma. In some patients with NAFLD, the liver stiffness thresholds for compensated advanced chronic liver disease may be lower. In causes other than viral hepatitis and NAFLD, liver stiffness thresholds are not well established.
[2022-08-28 09:57] LABS: MANUAL DIFF FLAG NO
[2022-08-28 10:05] LABS: Basophils Percent Auto 0.7 % (0-2); Eosinophils Absolute Auto 0.1 X10*3/uL (0.0-0.4); Eosinophils Percent Auto 2.1 % (0-4); Hematocrit 37.8 % (37.0-47.0); Hemoglobin 11.4 g/dl (12.0-16.0); Imm Gran Abs Auto 0.01 X10*3/uL (0.00-0.03); Imm Gran Pct Auto 0.2 % (0.0-0.4); Lymphocytes Absolute Auto 1.2 X10*3/uL (1.2-4.9); Lymphocytes Percent Auto 21.7 % (20-40); Mean Corpuscular HGB Conc 30.2 g/dl (31.0-35.0); Mean Corpuscular Hemoglobin 26.6 pg (27.0-33.0); Mean Corpuscular Volume 88.3 fL (80.0-98.0); Mean Platelet Volume 9.7 fL (9.4-12.3); Monocytes Absolute Auto 0.5 X10*3/uL (0.1-1.2); Monocytes Percent Auto 9.1 % (2-11); Neutrophils Absolute Auto 3.7 x10*3/uL (2.0-8.3); Neutrophils Percent Auto 66.2 % (45-73); Platelet Count 246 X10*3/uL (160-400); Red Blood Count 4.28 X10*6/uL (4.20-5.50); Red Cell Distribution Width 15.2 % (11.0-16.0); White Blood Count 5.6 X10*3/uL (4.8-10.8)
[2022-08-28 10:35] LABS: Alanine Aminotransferase 48 U/L (0-31); Albumin Level 4.2 g/dL (3.5-5.0); Alkaline Phosphatase 206 U/L (39-117); Anion Gap 20 (12-20); Aspartate Amino Transferase 55 U/L (5-31); Bilirubin Total 0.7 mg/dL (0.0-1.0); Blood Urea Nitrogen 12 mg/dL (9-16); Calcium 9.6 mg/dL (8.4-10.2); Carbon Dioxide 21 mmol/L (22-29); Chloride 103 mmol/L (96-108); Estimated Glomerular Filt Rate > 60; Glucose Random 163 mg/dL (60-115); Potassium 4.7 mmol/L (3.3-5.1); Sodium 139 mmol/L (135-145); Total Protein 9.2 g/dL (6.5-8.0)
[2022-09-04 09:38] LABS: 6-MMPN 11401 (<5700); 6-TGN 133 (235-400)
== END 2022-08-28 09:46 | disposition home or self-care (01) ==
LOC: HO.US 09:45
PROVIDERS: PCP Internal Medicine; Visit Provider Internal Medicine Gastroenterology
DX: K75.4 Autoimmune hepatitis (principal); K75.81 Nonalcoholic steatohepatitis (NASH); K74.60 Unspecified cirrhosis of liver
CPT/HCPCS: 36415; 76705; 76981; 80053; 80299; 85025

== ENCOUNTER 2022-09-04 09:42 | Outpatient (REF) | payer MEDICARE, MEDICAID, SELFPAY ==
[2022-03-27 09:43] VITALS: BP 128/60; BMI 27.1
[2022-09-04 10:20] LABS: MANUAL DIFF FLAG NO
[2022-09-04 10:40] LABS: Basophils Percent Auto 0.9 % (0-2); Eosinophils Absolute Auto 0.1 X10*3/uL (0.0-0.4); Eosinophils Percent Auto 2.1 % (0-4); Imm Gran Abs Auto 0.01 X10*3/uL (0.00-0.03); Imm Gran Pct Auto 0.2 % (0.0-0.4); Lymphocytes Absolute Auto 1.1 X10*3/uL (1.2-4.9); Lymphocytes Percent Auto 24.4 % (20-40); Mean Corpuscular HGB Conc 29.7 g/dl (31.0-35.0); Mean Corpuscular Volume 90.7 fL (80.0-98.0); Mean Platelet Volume 9.8 fL (9.4-12.3); Monocytes Absolute Auto 0.4 X10*3/uL (0.1-1.2); Neutrophils Absolute Auto 2.7 x10*3/uL (2.0-8.3); Neutrophils Percent Auto 62.4 % (45-73); Platelet Count 246 X10*3/uL (160-400); Red Blood Count 4.08 X10*6/uL (4.20-5.50); Red Cell Distribution Width 15.3 % (11.0-16.0); White Blood Count 4.4 X10*3/uL (4.8-10.8)
[2022-09-04 10:51] LABS: Estimated Average Glucose 160 mg/dL; Hemoglobin A1c % 7.2 %
[2022-09-04 11:19] LABS: Appearance Urine Clear; Color Urine Yellow; Glucose Urine UA >=1000 mg/dL (Negative); Leukocyte Esterase Urine Negative (Negative); Nitrite Urine Negative (Negative); PH 7.5 (5.0-9.0); Specific Gravity - Urine >= 1.030 (1.005-1.025); UMIC TRIGGER UA YES; Urine Blood Negative (Negative); Urine Ketones Negative (Negative); Urine Protein Negative (Neg-Trace)
[2022-09-04 11:37] LABS: Bacteria Urine None Seen (None Seen); Hyaline Casts Urine 0-2 /LPF (0-2); RBC Urine 0-2 /HPF (0-2); Squamous Epithelial Cell Urine 0-2 /HPF (0-2); WBC Urine 0-5 /HPF (0-5)
[2022-09-04 11:39] LABS: Alanine Aminotransferase 64 U/L (0-31); Albumin Level 3.8 g/dL (3.5-5.0); Alkaline Phosphatase 247 U/L (39-117); Anion Gap 11 (12-20); Aspartate Amino Transferase 67 U/L (5-31); Bilirubin Total 0.5 mg/dL (0.0-1.0); Blood Urea Nitrogen 11 mg/dL (9-16); Calcium 9.3 mg/dL (8.4-10.2); Carbon Dioxide 30 mmol/L (22-29); Chloride 104 mmol/L (96-108); Cholesterol 127 mg/dL; Estimated Glomerular Filt Rate > 60; Glucose Random 162 mg/dL (60-115); HDL Cholesterol 36 mg/dL; LDL Cholesterol Calculated 76 mg/dl; Potassium 4.5 mmol/L (3.3-5.1); Sodium 140 mmol/L (135-145); Total Protein 8.5 g/dL (6.5-8.0); Triglycerides 78 mg/dL
[2022-09-04 11:43] LABS: Thyroid Stimulating Hormone 2.49 uIU/mL (0.32-4.0)
[2022-09-04 12:31] LABS: Creatinine Urine 44.11 mg/dL; Microalbumin Urine < 5.0 mg/L
== END 2022-09-04 09:43 | disposition home or self-care (01) ==
LOC: HO.LAB 09:42
PROVIDERS: PCP Internal Medicine; Visit Provider Internal Medicine
DX: E11.9 Type 2 diabetes mellitus without complications (principal); I25.10 Atherosclerotic heart disease of native coronary artery without angina pectoris
CPT/HCPCS: 36415; 80053; 80061; 81001; 82043; 83036; 84443; 85025

== ENCOUNTER 2022-09-18 09:34 | Outpatient (REF) | payer MEDICARE, MEDICAID, SELFPAY ==
[2022-03-27 09:43] VITALS: BP 128/60; BMI 27.1
[2022-09-18 09:50] LABS: MANUAL DIFF FLAG NO
[2022-09-18 10:30] LABS: Basophils Absolute Auto 0.1 X10*3/uL (0.0-0.2); Basophils Percent Auto 0.9 % (0-2); Eosinophils Absolute Auto 0.1 X10*3/uL (0.0-0.4); Eosinophils Percent Auto 2.2 % (0-4); Hematocrit 38.2 % (37.0-47.0); Hemoglobin 11.9 g/dl (12.0-16.0); Imm Gran Abs Auto 0.01 X10*3/uL (0.00-0.03); Imm Gran Pct Auto 0.2 % (0.0-0.4); Lymphocytes Absolute Auto 1.5 X10*3/uL (1.2-4.9); Lymphocytes Percent Auto 25.3 % (20-40); Mean Corpuscular HGB Conc 31.2 g/dl (31.0-35.0); Mean Corpuscular Hemoglobin 26.5 pg (27.0-33.0); Mean Corpuscular Volume 85.1 fL (80.0-98.0); Mean Platelet Volume 9.7 fL (9.4-12.3); Monocytes Absolute Auto 0.6 X10*3/uL (0.1-1.2); Monocytes Percent Auto 10.2 % (2-11); Neutrophils Absolute Auto 3.5 x10*3/uL (2.0-8.3); Neutrophils Percent Auto 61.2 % (45-73); Platelet Count 266 X10*3/uL (160-400); Red Blood Count 4.49 X10*6/uL (4.20-5.50); Red Cell Distribution Width 16.3 % (11.0-16.0); White Blood Count 5.8 X10*3/uL (4.8-10.8)
[2022-09-18 11:00] LABS: Alanine Aminotransferase 41 U/L (0-31); Albumin Level 4.1 g/dL (3.5-5.0); Alkaline Phosphatase 170 U/L (39-117); Anion Gap 15 (12-20); Aspartate Amino Transferase 35 U/L (5-31); Bilirubin Total 0.4 mg/dL (0.0-1.0); Blood Urea Nitrogen 13 mg/dL (9-16); Calcium 9.5 mg/dL (8.4-10.2); Carbon Dioxide 25 mmol/L (22-29); Chloride 102 mmol/L (96-108); Estimated Glomerular Filt Rate > 60; Glucose Random 155 mg/dL (60-115); Potassium 4.8 mmol/L (3.3-5.1); Sodium 137 mmol/L (135-145)
[2022-09-25 16:14] LABS: 6-MMPN 1516 (<5700); 6-TGN <50 (235-400)
== END 2022-09-18 09:35 | disposition home or self-care (01) ==
LOC: HO.LAB 09:34
PROVIDERS: PCP Internal Medicine; Visit Provider Internal Medicine Gastroenterology
DX: K75.81 Nonalcoholic steatohepatitis (NASH) (principal); K75.4 Autoimmune hepatitis
CPT/HCPCS: 36415; 80053; 80299; 85025

== ENCOUNTER 2022-10-03 07:38 | Outpatient (REF) | payer MEDICARE, MEDICAID, SELFPAY ==
[2022-03-27 09:43] VITALS: BP 128/60; BMI 27.1
[2022-10-03 08:48] LABS: Alanine Aminotransferase 45 U/L (0-31); Albumin Level 3.6 g/dL (3.5-5.0); Alkaline Phosphatase 146 U/L (39-117); Anion Gap 10 (12-20); Aspartate Amino Transferase 51 U/L (5-31); Bilirubin Total 0.4 mg/dL (0.0-1.0); Blood Urea Nitrogen 10 mg/dL (9-16); Calcium 8.8 mg/dL (8.4-10.2); Carbon Dioxide 27 mmol/L (22-29); Chloride 106 mmol/L (96-108); Estimated Glomerular Filt Rate > 60; Glucose Random 144 mg/dL (60-115); Potassium 4.4 mmol/L (3.3-5.1); Sodium 139 mmol/L (135-145); Total Protein 8.1 g/dL (6.5-8.0)
== END 2022-10-03 07:39 | disposition home or self-care (01) ==
LOC: HO.LAB 07:38
PROVIDERS: PCP Internal Medicine; Visit Provider Internal Medicine Gastroenterology
DX: K75.81 Nonalcoholic steatohepatitis (NASH) (principal)
CPT/HCPCS: 36415; 80053

== ENCOUNTER 2022-10-15 08:35 | Outpatient (REF) | payer MEDICARE, MEDICAID, SELFPAY ==
[2022-03-27 09:43] VITALS: BP 128/60; BMI 27.1
--- NOTE | ~2022-10-15 | XR_ITS ---
EXAMINATION: XR KNEES, BILATERAL STANDING AP XR KNEE, RIGHT CLINICAL INFORMATION: Knee pain COMPARISON: Standing AP knees and right knee radiographs 02/20/2021. TECHNIQUE: Bilateral standing AP view of the knees is performed. Right knee is imaged in lateral and axial patella views. FINDINGS: Right: Normal bony mineralization. No fracture, dislocation, destructive process, or suprapatellar effusion. Hoffa's fat pad appears normal. There is no definite narrowing medial lateral knee joint compartments and no erosive change or chondrocalcinosis. No lateralization or tilting of the patella. There is a stable incidental oval corticated ossicle adjacent to the anterior tibial tuberosity in region of distal patellar tendon. Deep infrapatellar recess is preserved. There is also a stable corticated ossification adjacent to the superior aspect medial femoral condyle, likely sequela from old MCL injury (Pasty striata). Left: Normal bony mineralization. No fracture or dislocation or destructive process. No knee joint compartment narrowing or erosive changes. XR/XR knee RT 2V IMPRESSION: Right: -No definite joint narrowing. No erosive change. No effusion. 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 Left: -Unremarkable left knee.
--- NOTE | ~2022-10-15 | XR_ITS ---
EXAMINATION: XR KNEES, BILATERAL STANDING AP XR KNEE, RIGHT CLINICAL INFORMATION: Knee pain COMPARISON: Standing AP knees and right knee radiographs 02/20/2021. TECHNIQUE: Bilateral standing AP view of the knees is performed. Right knee is imaged in lateral and axial patella views. FINDINGS: Right: Normal bony mineralization. No fracture, dislocation, destructive process, or suprapatellar effusion. Hoffa's fat pad appears normal. There is no definite narrowing medial lateral knee joint compartments and no erosive change or chondrocalcinosis. No lateralization or tilting of the patella. There is a stable incidental oval corticated ossicle adjacent to the anterior tibial tuberosity in region of distal patellar tendon. Deep infrapatellar recess is preserved. There is also a stable corticated ossification adjacent to the superior aspect medial femoral condyle, likely sequela from old MCL injury (Patsy striata). Left: Normal bony mineralization. No fracture or dislocation or destructive process. No knee joint compartment narrowing or erosive changes. XR/XR knee standing BI IMPRESSION: Right: -No definite joint narrowing. No erosive change. No effusion. 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 Left: -Unremarkable left knee.
== END 2022-10-15 08:36 | disposition home or self-care (01) ==
LOC: HO.HOSX 08:35
PROVIDERS: Visit Provider Orthopaedic Surgery
DX: M17.11 Unilateral primary osteoarthritis, right knee (principal); E11.9 Type 2 diabetes mellitus without complications
CPT/HCPCS: 20610; 73560; 73565; 99212; J1100

== ENCOUNTER → 2022-10-18 08:38 | Outpatient (REF) | payer MEDICARE, MEDICAID, SELFPAY ==
[2022-03-27 09:43] VITALS: BP 128/60; BMI 27.1
--- NOTE | ~2022-10-18 | NM_ITS ---
EXERCISE MYOCARDIAL PERFUSION STUDY INDICATION: Shortness of breath, chest pain TECHNIQUE: The patient was brought in for an exercise perfusion study on 10/18/2022. Patient performed exercise as per Je protocol and was injected 25 mCi of sestamibi once target heart rate was achieved. Images were obtained using the SPECT gamma camera interlaced with the gating device. Images were obtained in supine position. Resting perfusion study was performed on 10/19/2022. Patient was administered 25 mCi of sestamibi intravenously at rest. Images were then obtained in supine position. Images were processed with the software and compared side to side in short axis, horizontal long axis and vertical long axis views. Total DLP 97mGy-cm. FINDINGS: Raw images were reviewed. The stress perfusion study showed no significant perfusion abnormality. Both uncorrected as well as CT attenuation corrected images were reviewed. The gated study shows normal LV systolic function with calculated LVEF of >70%. LV cavity is normal in size. The gated study shows normal wall thickening and contraction of segments. Resting study shows no significant perfusion abnormality. Gating at rest reveals normal wall motion with ejection fraction at >70%. The findings are consistent with no clear reversible or fixed perfusion defects. NM/NM cardiolite stress test IMPRESSION: 1. Myocardial perfusion imaging study shows normal myocardial perfusion. 2. Gated LVEF is > 70% during stress and rest. 3. Transient ischemic dilatation not present. EKG component of the test reported separately.
--- NOTE | 2022-10-18 08:40 | CA_ITS ---
Acquisition Time: 2022-10-18 09:03:52 Total Exercise Time: 00:05:43 Test Indications: SOB, CHEST PAIN Medications: Protocol: JE Max HR: 146 BPM 92% of Pred: 158 BPM Max BP: 176/046 mmHG Max Work Load: 7.0 METS Exercise stress test exercise 5 min 43 sec of Je protocol achieving 92% MPHR, with mild SOB, no chest discomfort, with isolated PVCs, with normotensive response to exercise, without EKG changes. Nuclear images pending. Test reviewed with Jones Lazaro. Referred By: Ollie Smith Overread By: ALPHONSE METZGER
== END ==
LOC: HO.CARD 08:38
PROVIDERS: PCP Internal Medicine; Visit Provider Internal Medicine Cardiovascular Disease
DX: I25.10 Atherosclerotic heart disease of native coronary artery without angina pectoris (principal)
CPT/HCPCS: 78452; 93017; A9500; J0280; J2785

== ENCOUNTER 2022-10-25 17:37 | Emergency (ER) | payer MEDICARE, MEDICAID, SELFPAY ==
[2022-03-27 09:43] VITALS: BP 128/60; BMI 27.1
--- NOTE | ~2022-10-25 | XR_ITS ---
EXAMINATION: XR CHEST CLINICAL INFORMATION: Reason for Exam pain COMPARISON: Chest radiograph 01/06/2022 TECHNIQUE: 2 views of the chest FINDINGS: Lines and tubes: None. Clear lungs. No pleural effusion. No pneumothorax. Normal cardiomediastinal silhouette. XR/XR chest 2V IMPRESSION: * Clear lungs.
[2022-10-25 17:47] VITALS: BP 133/55; PULSE 91; RESP 18; TEMP 37; O2SAT 96
[2022-10-25 17:51] VITALS: BP 127/56; BP 133/55; PULSE 90; PULSE 91; RESP 18; TEMP 37; O2SAT 96; O2SAT 97; BMI 27.5
--- NOTE | 2022-10-25 17:51 | ECG_ITS ---
Test Reason : CX PAIN Blood Pressure : / mmHG Vent. Rate : 090 BPM Atrial Rate : 090 BPM P-R Int : 160 ms QRS Dur : 070 ms QT Int : 348 ms P-R-T Axes : 050 002 031 degrees QTc Int : 425 ms Normal sinus rhythm Normal ECG When compared with ECG of 06-JAN-2022 12:47, Fusion complexes are no longer Present Referred By: Herman Lindsey Electronically Signed By:FRIEDA HILLIARD MD
--- NOTE | 2022-10-25 17:55 | ED.GENADULT ---
HPI - General Adult General Chief complaint: Chest Pain Stated complaint: Chest Pain/ SOB Time Seen by Provider: 10/25/22 17:39 Source: patient, RN notes reviewed and old records reviewed Mode of arrival: EMS Limitations: no limitations History of Present Illness HPI narrative: 62-year-old female past medical history significant for hyperlipidemia, diabetes, coronary artery disease status post stenting x1, lupus cirrhosis presents for evaluation of chest pain. Patient reports the chest pain started 1 hour prior to arrival. She still has a discomfort but it is improved in intensity. Her pain is 3/10, midsternal and does not radiate. She does endorse some associated shortness of breath Denies any fevers, chills, coughing. Her vulcanizer rubber plate is Dr. Smith. Patient denies any exertion at the time of for symptom onset. Her 1 coronary artery stent was placed about 1 year ago per her Related Data Home Medications Medication Instructions Recorded Confirmed glipizide 10 mg tablet 10 mg PO DAILY 05/17/20 07/30/22 lisinopril 2.5 mg tablet 2.5 mg PO DAILY 05/17/20 07/30/22 metformin 500 mg tablet 500 mg PO BID 05/17/20 07/30/22 albuterol sulfate 90 mcg/actuation 90 mcg inhalation BID PRN 06/06/20 07/30/22 aerosol inhaler Shortness Of Breath fluticasone propionate 50 50 mcg intranasal DAILY PRN Nasal 06/06/20 07/30/22 mcg/actuation nasal Congestion spray,suspension loratadine 10 mg tablet 10 mg PO DAILY PRN Allergy Symptoms 06/07/20 07/30/22 lorazepam 0.5 mg tablet 0.5 mg PO QID PRN Anxiety 06/07/20 07/30/22 ondansetron 4 mg disintegrating 4 mg PO Q6-8H PRN Nausea 06/07/20 07/30/22 tablet oxycodone 5 mg tablet 5 mg PO Q4-6H PRN Pain 06/07/20 07/30/22 cholecalciferol (vitamin D3) 25 25 mcg PO DAILY 06/10/20 07/30/22 mcg (1,000 unit) capsule empagliflozin 25 mg tablet 25 mg PO DAILY 06/13/20 07/30/22 (Jardiance) nortriptyline 10 mg PO DAILY PRN Insomnia 12/05/20 07/30/22 clopidogrel 75 mg tablet (Plavix) 75 mg PO DAILY 12/07/21 07/30/22 atorvastatin 20 mg tablet 20 mg PO BEDTIME 04/09/22 07/30/22 alcohol swabs (Alcohol Prep Pads) pad topical 07/27/22 07/30/22 vibegron 75 mg tablet (Gemtesa) 75 mg PO DAILY 07/30/22 07/30/22 Previous Rx's Medication Instructions Recorded walker #1 ea 05/08/20 simethicone 125 mg capsule (Gas 125 mg PO BID-QID PRN abdominal 06/27/20 Relief (simethicone)) distention #20 caps aspirin 81 mg tablet,delayed 81 mg PO DAILY #30 tabs 12/27/20 release sucralfate 100 mg/mL oral 10 ml PO BID #1,000 mL 04/09/22 suspension (Carafate) mercaptopurine 50 mg tablet 50 mg PO DAILY #30 tabs 08/10/22 thiamine HCl (vitamin B1) 100 mg 100 mg PO DAILY #90 tabs 08/15/22 tablet vitamin A palmitate 3,000 mcg 10,000 unit PO DAILY #90 tabs 08/15/22 (10,000 unit) tablet zinc acetate 50 mg (zinc) capsule 50 mg PO DAILY #90 caps 08/25/22 (Galzin) ascorbic acid (vitamin C) 1,000 mg 1 g PO DAILY #90 caps 08/27/22 capsule lansoprazole 30 mg capsule,delayed 30 mg PO DAILY #60 caps 09/04/22 release linaclotide 290 mcg capsule 290 mcg PO DAILY #30 caps 09/12/22 rifaximin 550 mg tablet (Xifaxan) 550 mg PO BID #60 tabs 10/17/22 Allergies Allergy/AdvReac Type Severity Reaction Status Date / Time duloxetine [From CYMBALTA] Allergy Intermediate SHAKINESS Verified 10/15/22 10:11 Review of Systems Constitutional: Constitutional: Reports as per HPI, Denies chills, Denies fatigue, Denies fever(s) and Denies headache(s) ENT: Denies headache(s) Cardiovascular: Cardiovascular: Reports chest pain and Reports dyspnea Respiratory: Respiratory: Denies cough and Reports dyspnea Gastrointestinal: Gastrointestinal: Denies abdominal pain, Denies constipation and Denies vomiting Genitourinary: Genitourinary: Denies dysuria Neurologic: Denies headache(s) and Denies focal weakness Endocrine: Endocrine: Denies fatigue PMFSH Past Medical History Medical History Abdominal bloating Antiphospholipid antibody syndrome Arthritis Autoimmune hepatitis Cirrhosis Cirrhosis Diabetes POOL (dyspnea on exertion) Fibromyalgia Gallstones High blood pressure Leg pain, right Lupus Nonalcoholic steatohepatitis (SHARMA) Surgical History History of carpal tunnel release History of cataract surgery (2010) History of cervical discectomy (07/2009) History of colonoscopy History of heart artery stent History of repair of right rotator cuff (08/2011) History of shoulder surgery Hx of cholecystectomy Hx of endoscopy Family History Family History Father History of diabetes mellitus, type II History of hypertension History of heart bypass surgery Mother History of diabetes mellitus, type II Brother History of gout Paternal Uncle Cancer Paternal Aunt Cancer Social History Social History Household Members: None Housing: Apartment Are you a primary skin care technician to a significant other at home: No 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 have visiting nurse or other home services: No (cardiology nurse practitioner) Alcohol intake: never Patient Tobacco Use Status: Never used Tobacco Smoked in Last 30 Days: No Use of substances other than those prescribed or required for medical reasons: No Advance Directives: No Advance Directives Information Provided: No service: No Current occupational status: disabled Physical Exam ED Vital Signs: Vital Signs - 24 hr 10/25/22 17:47 10/25/22 17:51 10/25/22 18:41 Temperature 98.6 F 98.6 F 98.3 F Pulse Rate 91 91 92 Respiratory Rate 18 18 18 Blood Pressure 133/55 L 133/55 L 136/56 L Pulse Oximetry 96 96 95 Oxygen Delivery Method Room Air Room Air Room Air BMI result Body Mass Index 27.5 Const General: healthy appearing, comfortable, no acute distress, alert and awake Nutritional Appearance: well nourished Orientation/consciousness: patient oriented x3 HENMT Head: Yes normocephalic and Yes atraumatic Throat: Yes posterior oropharynx normal Eyes Eyelids: Yes eyelids normal Conjunctivae: conjunctivae normal Sclerae: sclerae normal Corneas: corneas normal Pupils: Equal, round and reactive pupils present EOM: EOMs intact bilaterally Neck Neck: Yes full ROM Resp Effort & Inspection: normal respiratory effort, able to speak in complete sentences, no audible wheezes and not labored Auscultation: clear to auscultation bilaterally Cardio Rate: regular rate Rhythm: regular rhythm GI Inspection: No distended Palpation (GI): Soft to palpation, not firm, nontender, no guarding and not rigid Auscultation: normoactive bowel sounds Skin General skin exam: no rashes or lesions noted and elasticity normal Neuro General: patient oriented x3 Cranial nerves: Yes Equal, round and reactive pupils present and Yes Bilaterally intact EOM present Cognition (Neuro): normal cognition Extrem Other: Moving all extremities well without any obvious deformities Course Reevaluation(s) Reevaluation #1: Patient's initial troponin negative, will get a 3 hour troponin. The patient's sodium was low at 130, will treat with IV fluids. Mild hyperglycemia, no evidence of DKA Time: 18:59 Reevaluation #2: Repeat troponin negative, patient reports feeling better after IV fluids. Time: 21:23 Medications Administered Discontinued Medications Generic Name Dose Route Start Last Admin Trade Name Freq PRN Reason Stop Dose Admin Sodium Chloride 1,000 mls @ 999 mls/hr 10/25/22 19:00 10/25/22 19:55 Ns IV 10/25/22 20:00 999 mls/hr .Q1H1M SOFIA Administration Medical Decision Making Medical Decision Making MDM Narrative: 62-year-old female presents for evaluation of chest pain. She has multiple risk factors for coronary artery disease including previous stenting, diabetes, hyperlipidemia, age, hypertension. Will get a troponin and a delta, 3 hour troponin. Chest x-ray, viral swab also pending. EKG is pending at this time. The patient appears quite well. The patient reports that she had a stress test 1 week ago that she was told was ?normal. ? Differential Diagnosis Chest pain Costochondritis Bronchitis ACS PE Chest wall pain GERD Anxiety Lab Data 10/25/22 18:15 10/25/22 18:15 Labs: Lab Results 10/25/22 10/25/22 10/25/22 Range/Units 18:15 18:15 18:15 WBC 7.8 (4.8-10.8) X10*3/uL RBC 4.70 (4.20-5.50) X10*6/uL Hgb 12.0 (12.0-16.0) g/dl Hct 38.8 (37.0-47.0) % MCV 82.6 (80.0-98.0) fL MCH 25.5 L (27.0-33.0) pg MCHC 30.9 L (31.0-35.0) g/dl RDW 16.2 H (11.0-16.0) % Plt Count 223 (160-400) X10*3/uL MPV 9.5 (9.4-12.3) fL Immature Gran % (Auto) 0.4 (0.0-0.4) % Neut % (Auto) 83.5 H (45-73) % Lymph % (Auto) 8.1 L (20-40) % Rooks % (Auto) 7.0 (2-11) % Eos % (Auto) 0.5 (0-4) % Baso % (Auto) 0.5 (0-2) % Lymph # (Auto) 0.6 L (1.2-4.9) X10*3/uL Rooks # (Auto) 0.6 (0.1-1.2) X10*3/uL Eos # (Auto) 0.0 (0.0-0.4) X10*3/uL Baso # (Auto) 0.0 (0.0-0.2) X10*3/uL Abs Immat Gran (auto) 0.03 (0.00-0.03) X10*3/uL Absolute Neuts (auto) 6.5 (2.0-8.3) x10*3/uL Absolute Nucleated RBC 0.000 (0.0-0.012) X10*3/uL Nucleated RBC % (auto) 0.0 (0.0-0.2) /100WBC PT (10.0-13.1) SEC INR (0.9-1.1) APTT (26.0-36.4) SEC Sodium 130 L (135-145) mmol/L Potassium 3.8 (3.3-5.1) mmol/L Chloride 98 (96-108) mmol/L Carbon Dioxide 22 (22-29) mmol/L Anion Gap 14 (12-20) BUN 13 (9-16) mg/dL Creatinine 0.76 (0.5-1.4) mg/dL Estim Creat Clear Calc 69.4 Estimated GFR > 60 Random Glucose 202 H (60-115) mg/dL Calcium 8.3 L (8.4-10.2) mg/dL Magnesium 1.9 (1.6-2.6) mg/dL Total Bilirubin 0.8 (0.0-1.0) mg/dL AST 83 H (5-31) U/L ALT 67 H (0-31) U/L Alkaline Phosphatase 176 H (39-117) U/L Troponin I High Sens (<3.5-17.0) ng/L Total Protein 8.8 H (6.5-8.0) g/dL Albumin 3.7 (3.5-5.0) g/dL Lipase 34 (8-78) U/L COVID-19 (HITESH) (Negative) COVID-19 Clin Com Influenza Type A (FRANCISCA) Negative (Negative) Influenza Type B (FRANCISCA) Negative (Negative) Influenza A & B Note See Note 10/25/22 10/25/22 10/25/22 Range/Units 18:15 18:15 18:15 WBC (4.8-10.8) X10*3/uL RBC (4.20-5.50) X10*6/uL Hgb (12.0-16.0) g/dl Hct (37.0-47.0) % MCV (80.0-98.0) fL MCH (27.0-33.0) pg MCHC (31.0-35.0) g/dl RDW (11.0-16.0) % Plt Count (160-400) X10*3/uL MPV (9.4-12.3) fL Immature Gran % (Auto) (0.0-0.4) % Neut % (Auto) (45-73) % Lymph % (Auto) (20-40) % Rooks % (Auto) (2-11) % Eos % (Auto) (0-4) % Baso % (Auto) (0-2) % Lymph # (Auto) (1.2-4.9) X10*3/uL Rooks # (Auto) (0.1-1.2) X10*3/uL Eos # (Auto) (0.0-0.4) X10*3/uL Baso # (Auto) (0.0-0.2) X10*3/uL Abs Immat Gran (auto) (0.00-0.03) X10*3/uL Absolute Neuts (auto) (2.0-8.3) x10*3/uL Absolute Nucleated RBC (0.0-0.012) X10*3/uL Nucleated RBC % (auto) (0.0-0.2) /100WBC PT 12.3 (10.0-13.1) SEC INR 1.1 (0.9-1.1) APTT 30.1 (26.0-36.4) SEC Sodium (135-145) mmol/L Potassium (3.3-5.1) mmol/L Chloride (96-108) mmol/L Carbon Dioxide (22-29) mmol/L Anion Gap (12-20) BUN (9-16) mg/dL Creatinine (0.5-1.4) mg/dL Estim Creat Clear Calc Estimated GFR Random Glucose (60-115) mg/dL Calcium (8.4-10.2) mg/dL Magnesium (1.6-2.6) mg/dL Total Bilirubin (0.0-1.0) mg/dL AST (5-31) U/L ALT (0-31) U/L Alkaline Phosphatase (39-117) U/L Troponin I High Sens < 2.7 (<3.5-17.0) ng/L Total Protein (6.5-8.0) g/dL Albumin (3.5-5.0) g/dL Lipase (8-78) U/L COVID-19 (HITESH) Negative (Negative) COVID-19 Clin Com See Note Influenza Type A (FRANCISCA) (Negative) Influenza Type B (FRANCISCA) (Negative) Influenza A & B Note 10/25/22 Range/Units 20:15 WBC (4.8-10.8) X10*3/uL RBC (4.20-5.50) X10*6/uL Hgb (12.0-16.0) g/dl Hct (37.0-47.0) % MCV (80.0-98.0) fL MCH (27.0-33.0) pg MCHC (31.0-35.0) g/dl RDW (11.0-16.0) % Plt Count (160-400) X10*3/uL MPV (9.4-12.3) fL Immature Gran % (Auto) (0.0-0.4) % Neut % (Auto) (45-73) % Lymph % (Auto) (20-40) % Rooks % (Auto) (2-11) % Eos % (Auto) (0-4) % Baso % (Auto) (0-2) % Lymph # (Auto) (1.2-4.9) X10*3/uL Rooks # (Auto) (0.1-1.2) X10*3/uL Eos # (Auto) (0.0-0.4) X10*3/uL Baso # (Auto) (0.0-0.2) X10*3/uL Abs Immat Gran (auto) (0.00-0.03) X10*3/uL Absolute Neuts (auto) (2.0-8.3) x10*3/uL Absolute Nucleated RBC (0.0-0.012) X10*3/uL Nucleated RBC % (auto) (0.0-0.2) /100WBC PT (10.0-13.1) SEC INR (0.9-1.1) APTT (26.0-36.4) SEC Sodium (135-145) mmol/L Potassium (3.3-5.1) mmol/L Chloride (96-108) mmol/L Carbon Dioxide (22-29) mmol/L Anion Gap (12-20) BUN (9-16) mg/dL Creatinine (0.5-1.4) mg/dL Estim Creat Clear Calc Estimated GFR Random Glucose (60-115) mg/dL Calcium (8.4-10.2) mg/dL Magnesium (1.6-2.6) mg/dL Total Bilirubin (0.0-1.0) mg/dL AST (5-31) U/L ALT (0-31) U/L Alkaline Phosphatase (39-117) U/L Troponin I High Sens < 2.7 (<3.5-17.0) ng/L Total Protein (6.5-8.0) g/dL Albumin (3.5-5.0) g/dL Lipase (8-78) U/L COVID-19 (HITESH) (Negative) COVID-19 Clin Com Influenza Type A (FRANCISCA) (Negative) Influenza Type B (FRANCISCA) (Negative) Influenza A & B Note Discharge Plan Discharge Clinical Impression: Chest pain, Hyponatremia Patient Disposition: Home, Self-Care Instructions: Hyponatremia (ED) Additional Instructions: Your blood work was significant for a sodium of 130 which is slightly below the normal limit This is likely partially due to your sugar being high and the fact that you drink a lot of water. You can try to drink Gatorade Zero which would not increase your blood sugar but would help with your electrolytes Your chest pain workup was reassuring, her EKG and blood work for that was normal Prescriptions: No Action simethicone [Gas Relief (simethicone)] 125 mg capsule 125 mg PO BID-QID PRN (Reason: abdominal distention) Qty: 20 0RF aspirin 81 mg tablet,delayed release (DR/EC) 81 mg PO DAILY Qty: 30 5RF sucralfate [Carafate] 100 mg/mL suspension 10 ml PO BID Qty: 1000 2RF mercaptopurine 50 mg tablet 50 mg PO DAILY Qty: 30 2RF vitamin A palmitate 3,000 mcg (10,000 unit) tablet 10,000 unit PO DAILY Qty: 90 1RF thiamine HCl (vitamin B1) 100 mg tablet 100 mg PO DAILY Qty: 90 1RF Galzin 50 mg (zinc) capsule 50 mg PO DAILY Qty: 90 0RF ascorbic acid (vitamin C) 1,000 mg capsule 1 g PO DAILY Qty: 90 1RF lansoprazole 30 mg capsule,delayed release(DR/EC) 30 mg PO DAILY Qty: 60 2RF linaclotide 290 mcg capsule 290 mcg PO DAILY Qty: 30 1RF Xifaxan 550 mg tablet 550 mg PO BID Qty: 60 6RF lorazepam 0.5 mg tablet 0.5 mg PO QID PRN (Reason: Anxiety) ondansetron 4 mg tablet,disintegrating 4 mg PO Q6-8H PRN (Reason: Nausea) loratadine 10 mg Tablet 10 mg PO DAILY PRN (Reason: Allergy Symptoms) oxycodone 5 mg tablet 5 mg PO Q4-6H PRN (Reason: Pain) nortriptyline 10 mg PO DAILY PRN (Reason: Insomnia) clopidogrel [Plavix] 75 mg Tablet 75 mg PO DAILY (DME) shade Rendon See Rx Instructions .ROUTE .MEDSUPPLY Qty: 1 0RF Rx Instructions: As directed Jardiance 25 mg Tablet 25 mg PO DAILY fluticasone propionate 50 mcg/actuation spray,suspension 50 mcg intranasal DAILY PRN (Reason: Nasal Congestion) albuterol sulfate 90 mcg/actuation HFA aerosol inhaler 90 mcg inhalation BID PRN (Reason: Shortness Of Breath) metformin 500 mg tablet 500 mg PO BID glipizide 10 mg tablet 10 mg PO DAILY lisinopril 2.5 mg tablet 2.5 mg PO DAILY cholecalciferol (vitamin D3) 25 mcg (1,000 unit) capsule 25 mcg PO DAILY alcohol swabs [Alcohol Prep Pads] Pads, Medicated topical Gemtesa 75 mg tablet 75 mg PO DAILY atorvastatin 20 mg tablet 20 mg PO BEDTIME
[2022-10-25 18:20] LABS: MANUAL DIFF FLAG NO
[2022-10-25 18:24] LABS: Basophils Percent Auto 0.5 % (0-2); Eosinophils Percent Auto 0.5 % (0-4); Hematocrit 38.8 % (37.0-47.0); Imm Gran Abs Auto 0.03 X10*3/uL (0.00-0.03); Imm Gran Pct Auto 0.4 % (0.0-0.4); Lymphocytes Absolute Auto 0.6 X10*3/uL (1.2-4.9); Lymphocytes Percent Auto 8.1 % (20-40); Mean Corpuscular HGB Conc 30.9 g/dl (31.0-35.0); Mean Corpuscular Hemoglobin 25.5 pg (27.0-33.0); Mean Corpuscular Volume 82.6 fL (80.0-98.0); Mean Platelet Volume 9.5 fL (9.4-12.3); Monocytes Absolute Auto 0.6 X10*3/uL (0.1-1.2); Neutrophils Absolute Auto 6.5 x10*3/uL (2.0-8.3); Neutrophils Percent Auto 83.5 % (45-73); Platelet Count 223 X10*3/uL (160-400); Red Cell Distribution Width 16.2 % (11.0-16.0); White Blood Count 7.8 X10*3/uL (4.8-10.8)
[2022-10-25 18:30] LABS: INTERNATIONAL NORM RATIO 1.1 (0.9-1.1); Prothrombin Time 12.3 SEC (10.0-13.1)
[2022-10-25 18:32] LABS: Partial Thromboplastin Time 30.1 SEC (26.0-36.4)
[2022-10-25 18:41] VITALS: BP 136/56; PULSE 92; RESP 18; TEMP 36.8; O2SAT 95
[2022-10-25 18:41] LABS: COVID-19 Test Negative (Negative); IDNOW Serial# 08D9AD1C; IDNOW Serial# BCCEAD1C; Influenza A Negative (Negative); Influenza B2 Negative (Negative)
[2022-10-25 18:46] LABS: Alanine Aminotransferase 67 U/L (0-31); Albumin Level 3.7 g/dL (3.5-5.0); Alkaline Phosphatase 176 U/L (39-117); Anion Gap 14 (12-20); Aspartate Amino Transferase 83 U/L (5-31); Bilirubin Total 0.8 mg/dL (0.0-1.0); Blood Urea Nitrogen 13 mg/dL (9-16); Calcium 8.3 mg/dL (8.4-10.2); Carbon Dioxide 22 mmol/L (22-29); Chloride 98 mmol/L (96-108); Creatinine Clr Calc Pharmacy 69.4; Estimated Glomerular Filt Rate > 60; Glucose Random 202 mg/dL (60-115); Lipase 34 U/L (8-78); Magnesium 1.9 mg/dL (1.6-2.6); Potassium 3.8 mmol/L (3.3-5.1); Sodium 130 mmol/L (135-145); Total Protein 8.8 g/dL (6.5-8.0)
[2022-10-25 18:57] LABS: Troponin-I High Sensitivity < 2.7 ng/L (<3.5-17.0)
--- NOTE | 2022-10-25 19:53 | PC.NURSE ---
assumed care of pt aox4 resting quietly 1L NS running IV patent that was placed by EMS in L wrist 20 g
[2022-10-25] MEDS: 0.9 % Sodium Chloride 1,000 ML 999 ML IV (19:55)
--- NOTE | 2022-10-25 20:18 | PC.NURSE ---
Addendum entered by Viji Short 10/25/22 20:18: mnemonic and date/time written on label (grngel) Original Note: grngel and gel for trop drawn w/ straight needle and sent to lab via tube system by this nurse
[2022-10-25 20:53] LABS: Troponin-I High Sensitivity < 2.7 ng/L (<3.5-17.0)
[2022-10-25 21:40] VITALS: BP 135/66; PULSE 96; RESP 15; TEMP 37.2; O2SAT 96
--- NOTE | 2022-10-25 21:46 | PC.NURSE ---
VSS Discharge instructions given and explained to patient No apparent distress No SOB denies pain aox4 Ambulates safely and independently IV cath tip intact upon removal
== END 2022-10-25 21:49 | disposition home or self-care (01) ==
PROVIDERS: Physician Assistant; Emergency Provider Internal Medicine; PCP Internal Medicine
DX: R07.89 Other chest pain (principal); R06.02 Shortness of breath; E87.1 Hypo-osmolality and hyponatremia; Z20.822 Contact with and (suspected) exposure to COVID-19; Z20.828 Contact with and (suspected) exposure to other viral communicable diseases; Z79.899 Other long term (current) drug therapy
CPT/HCPCS: 36415; 71046; 80053; 83690; 83735; 84484; 85025; 85610; 85730; 87502; 87635; 93005; 96360; 99284; 99285

== ENCOUNTER 2022-10-30 09:18 | Outpatient (REF) | payer MEDICARE, MEDICAID, SELFPAY ==
[2022-03-27 09:43] VITALS: BP 128/60; BMI 27.1
[2022-10-30 09:31] LABS: MANUAL DIFF FLAG NO
[2022-10-30 10:04] LABS: Basophils Percent Auto 0.5 % (0-2); Eosinophils Absolute Auto 0.1 X10*3/uL (0.0-0.4); Eosinophils Percent Auto 2.2 % (0-4); Hematocrit 36.1 % (37.0-47.0); Hemoglobin 11.1 g/dl (12.0-16.0); Imm Gran Abs Auto 0.03 X10*3/uL (0.00-0.03); Imm Gran Pct Auto 0.5 % (0.0-0.4); Lymphocytes Absolute Auto 1.6 X10*3/uL (1.2-4.9); Mean Corpuscular HGB Conc 30.7 g/dl (31.0-35.0); Mean Corpuscular Hemoglobin 25.6 pg (27.0-33.0); Mean Corpuscular Volume 83.2 fL (80.0-98.0); Mean Platelet Volume 9.7 fL (9.4-12.3); Monocytes Absolute Auto 0.6 X10*3/uL (0.1-1.2); Neutrophils Absolute Auto 3.9 x10*3/uL (2.0-8.3); Neutrophils Percent Auto 61.8 % (45-73); Platelet Count 227 X10*3/uL (160-400); Red Blood Count 4.34 X10*6/uL (4.20-5.50); Red Cell Distribution Width 16.4 % (11.0-16.0); White Blood Count 6.3 X10*3/uL (4.8-10.8)
[2022-10-30 10:47] LABS: Thyroid Stimulating Hormone 3.49 uIU/mL (0.32-4.0)
[2022-10-30 10:51] LABS: Alanine Aminotransferase 61 U/L (0-31); Albumin Level 3.5 g/dL (3.5-5.0); Alkaline Phosphatase 198 U/L (39-117); Anion Gap 11 (12-20); Aspartate Amino Transferase 78 U/L (5-31); Bilirubin Total 0.5 mg/dL (0.0-1.0); Blood Urea Nitrogen 12 mg/dL (9-16); Calcium 8.9 mg/dL (8.4-10.2); Carbon Dioxide 26 mmol/L (22-29); Chloride 104 mmol/L (96-108); Estimated Glomerular Filt Rate > 60; Glucose Random 149 mg/dL (60-115); Potassium 4.3 mmol/L (3.3-5.1); Sodium 137 mmol/L (135-145); Total Protein 8.6 g/dL (6.5-8.0)
== END 2022-10-30 09:19 | disposition home or self-care (01) ==
LOC: HO.LAB 09:18
PROVIDERS: PCP Internal Medicine; Visit Provider Internal Medicine
DX: I25.10 Atherosclerotic heart disease of native coronary artery without angina pectoris (principal); E11.9 Type 2 diabetes mellitus without complications; R53.81 Other malaise; R53.83 Other fatigue
CPT/HCPCS: 36415; 80053; 84443; 85025

== ENCOUNTER → 2022-11-12 10:32 | Outpatient (BNVA) | payer MEDICARE, MEDICAID, SELFPAY ==
[2022-03-27 09:43] VITALS: BP 128/60; BMI 27.1
== END ==
PROVIDERS: PCP Internal Medicine; Referring Provider Internal Medicine; Visit Provider Internal Medicine Cardiovascular Disease
DX: I20.8 Other forms of angina pectoris (principal)
CPT/HCPCS: 99212

== ENCOUNTER 2022-11-15 12:42 | Outpatient (REF) | payer MEDICARE, MEDICAID, SELFPAY ==
[2022-03-27 09:43] VITALS: BP 128/60; BMI 27.1
--- NOTE | ~2022-11-15 | MM_ITS ---
EXAMINATION: MM DIAGNOSTIC DIGITAL BREAST TOMOSYNTHESIS, BILATERAL CLINICAL INFORMATION: Due for yearly. 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 The lifetime risk of breast cancer based on the Tyrer-Cuzick Model is 5%. COMPARISON: Mammography: 11/14/2021, 05/16/2021, 11/15/2020, 11/08/2020 (BI-RADS 0), 07/16/2019 TECHNIQUE: Digital breast tomosynthesis is performed in both the craniocaudal and mediolateral oblique views along with computer-aided detection (CAD). Synthesized 2D images are generated from the tomosynthesis. Additional magnification left CC and magnification left ML views are provided. FINDINGS: There are scattered areas of fibroglandular density (ACR BI-RADS breast composition Category b). Parenchymal pattern is similar to prior studies and there is no developing density or architectural abnormality. Scattered minor nodularity is stable. The axilla and skin contours are unremarkable. No abnormal calcifications on the right. 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 Calcifications will be reassessed at next bilateral annual mammography, due in 12 months. Results are provided to the patient at time of visit by the technologist. MM/MM tomosynthesis diagnostic BI IMPRESSION: -No mammographic evidence of malignancy. -Probable benign calcifications related to degenerating fibroadenoma anterior medial left breast. ASSESSMENT: BI-RADS 3: Probably Benign RECOMMENDATION: Diagnostic mammography at time of next annual exam, due in 12 months. This patient's information was entered into a reminder system with a target due date for their next mammogram.
== END 2022-11-15 12:43 | disposition home or self-care (01) ==
LOC: HO.MAMMO 12:42
PROVIDERS: Visit Provider Internal Medicine
DX: R92.1 Mammographic calcification found on diagnostic imaging of breast (principal)
CPT/HCPCS: 77062; 77066

== ENCOUNTER 2022-12-04 09:18 | Emergency (ER) | payer MEDICARE, MEDICAID, SELFPAY ==
[2022-03-27 09:43] VITALS: BP 128/60; BMI 27.1
[2022-12-04 09:24] VITALS: BP 143/57; PULSE 91; RESP 16; TEMP 36.6; O2SAT 97; BMI 29.3
[2022-12-04] MEDS: Ketorolac Tromethamine 30 MG/ML VIAL IM (09:51)
--- NOTE | 2022-12-04 09:56 | ED_ITS ---
HPI - Extremity Problem General Chief complaint: Extremity Injury, Lower Stated complaint: R Knee Pain No Injury Time Seen by Provider: 12/04/22 09:30 Source: patient Mode of arrival: ambulatory Limitations: no limitations History of Present Illness HPI Narrative: 62 yo female with history of CAD s/p stent, HLD, DM, liver cirrhosis 2/2/ SHARMA, chronic back pain on chronic opiates, fibromyalgia, right knee osteoarthritis with history of meniscus tear in 2017 who presents to the ER for evaluation of acute on chronic right knee pain. She states for the last several weeks the pain in her right knee has been worsening. She recently saw Dr. Black in September for a corticosteroid injection in the right knee. She reports minimal relief from this. She states she was was to get a repeat MRI and to discuss surgical options but has not gotten a call about scheduling the MRI. She has been taking Tylenol and her prescribed oxycodone for the pain with minimal relief. She reports there is some swelling in the right knee that is slightly worse than usual. She reports pain with flexion and full extension. She is walking with a cane. She denies any redness, warmth, or recent injury. MD Complaint: joint swelling and joint pain Onset (ago): week(s) Pain Consistency: constant Location: right Severity scale (1-10): 9 Quality: stabbing Radiation: none Relieving factors: immobilization and medication Exacerbating factors: range of motion, weight bearing and walking Associated symptoms: denies other symptoms Related Data Home Medications Medication Instructions Recorded Confirmed glipizide 10 mg tablet 10 mg PO DAILY 05/17/20 11/12/22 lisinopril 2.5 mg tablet 2.5 mg PO DAILY 05/17/20 11/12/22 metformin 500 mg tablet 500 mg PO BID 05/17/20 11/12/22 albuterol sulfate 90 mcg/actuation 90 mcg inhalation BID PRN 06/06/20 11/12/22 aerosol inhaler Shortness Of Breath fluticasone propionate 50 50 mcg intranasal DAILY PRN Nasal 06/06/20 11/12/22 mcg/actuation nasal Congestion spray,suspension loratadine 10 mg tablet 10 mg PO DAILY PRN Allergy Symptoms 06/07/20 11/12/22 lorazepam 0.5 mg tablet 0.5 mg PO QID PRN Anxiety 06/07/20 11/12/22 ondansetron 4 mg disintegrating 4 mg PO Q6-8H PRN Nausea 06/07/20 11/12/22 tablet oxycodone 5 mg tablet 5 mg PO Q4-6H PRN Pain 06/07/20 11/12/22 cholecalciferol (vitamin D3) 25 25 mcg PO DAILY 06/10/20 11/12/22 mcg (1,000 unit) capsule empagliflozin 25 mg tablet 25 mg PO DAILY 06/13/20 11/12/22 (Jardiance) nortriptyline 10 mg PO DAILY PRN Insomnia 12/05/20 11/12/22 clopidogrel 75 mg tablet (Plavix) 75 mg PO DAILY 12/07/21 11/12/22 atorvastatin 20 mg tablet 20 mg PO BEDTIME 04/09/22 11/12/22 alcohol swabs (Alcohol Prep Pads) pad topical 07/27/22 11/12/22 vibegron 75 mg tablet (Gemtesa) 75 mg PO DAILY 07/30/22 11/12/22 Previous Rx's Medication Instructions Recorded walker #1 ea 05/08/20 simethicone 125 mg capsule (Gas 125 mg PO BID-QID PRN abdominal 06/27/20 Relief (simethicone)) distention #20 caps aspirin 81 mg tablet,delayed 81 mg PO DAILY #30 tabs 12/27/20 release mercaptopurine 50 mg tablet 50 mg PO DAILY #30 tabs 08/10/22 thiamine HCl (vitamin B1) 100 mg 100 mg PO DAILY #90 tabs 08/15/22 tablet vitamin A palmitate 3,000 mcg 10,000 unit PO DAILY #90 tabs 08/15/22 (10,000 unit) tablet zinc acetate 50 mg (zinc) capsule 50 mg PO DAILY #90 caps 08/25/22 (Galzin) ascorbic acid (vitamin C) 1,000 mg 1 g PO DAILY #90 caps 08/27/22 capsule lansoprazole 30 mg capsule,delayed 30 mg PO DAILY #60 caps 09/04/22 release linaclotide 290 mcg capsule 290 mcg PO DAILY #30 caps 09/12/22 rifaximin 550 mg tablet (Xifaxan) 550 mg PO BID #60 tabs 10/17/22 sucralfate 100 mg/mL oral 10 ml PO BID #1,000 mL 11/06/22 suspension diclofenac sodium 1 % topical gel 2 g topical QID #100 grams 12/04/22 naproxen 500 mg tablet 500 mg PO BID PRN pain #20 tabs 12/04/22 Allergies Allergy/AdvReac Type Severity Reaction Status Date / Time duloxetine [From CYMBALTA] Allergy Intermediate SHAKINESS Verified 12/04/22 09:27 Review of Systems Review of Systems: Yes all other systems are reviewed and are negative [facility] Past Medical History Medical History Abdominal bloating Antiphospholipid antibody syndrome Arthritis Autoimmune hepatitis Cirrhosis Cirrhosis Diabetes POOL (dyspnea on exertion) Fibromyalgia Gallstones High blood pressure Leg pain, right Lupus Nonalcoholic steatohepatitis (SHARMA) Surgical History History of carpal tunnel release History of cataract surgery (2010) History of cervical discectomy (07/2009) History of colonoscopy History of heart artery stent History of repair of right rotator cuff (08/2011) History of shoulder surgery Hx of cholecystectomy Hx of endoscopy Family History Family History Father History of diabetes mellitus, type II History of hypertension History of heart bypass surgery Mother History of diabetes mellitus, type II Brother History of gout Paternal Uncle Cancer Paternal Aunt Cancer Social History Social History Household Members: None Housing: Apartment Are you a primary rental boats caretaker to a significant other at home: No 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 have visiting nurse or other home services: 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 Oriented X3. No acute distress. HEENT: normal inspection CVS: Normal heart rate and rhythm. Pulses normal. Respiratory: No respiratory distress. Skin: Skin warm and dry. Normal skin color. Normal skin turgor. No rashes. Extremities: Mild generalized swelling of the right knee. No erythema or warmth of the knee. She has tenderness of the medial and lateral joint lines. Able to fully extend the knee but has pain with flexion at 45 degrees and beyond. Unable to assess joint laxity due to pain and discomfort. Neuro: Oriented X 3. No motor deficit. No sensory deficit. Steady gait. Medications Administered Discontinued Medications Generic Name Dose Route Start Last Admin Trade Name Fiona PRN Reason Stop Dose Admin Ketorolac Tromethamine 30 mg 12/04/22 09:40 12/04/22 09:51 Ketorolac Tromethamine 30 Mg/Ml Vial IM 12/04/22 09:41 30 mg ONCE ONE Administration Medical Decision Making Medical Decision Making MDM Narrative: 62-year-old female with history of right knee osteoarthritis, history of right meniscus tear several years ago who presents to the ER for evaluation of acute on chronic right knee pain. No recent injury. She is ambulatory. No signs or symptoms of infection today. No need for x-ray today. She is seeking additional joint injections. Counseled that she would need to follow-up with orthopedics for this. She was given an intramuscular injection of Toradol, knee was placed in Jaime wrap for compression and support and she will be discharged with oral and topical NSAIDs. She was encouraged follow back up with orthopedics for further evaluation and treatment. Patient agrees with plan and is stable for discharge home. Differential Diagnosis Differential Diagnoses: The differential diagnosis associated with the presentation includes Osteoarthritis, meniscus tear, other ligamentous injury or tear, inflammatory arthritis Radiology Impression Discussion of test interpretation with radiology: I have reviewed the radiologist's reading. Radiologist Impression: Bilateral knee x-rays from 10/15/2022 XR/XR knee standing BI IMPRESSION: Right: -No definite joint narrowing. No erosive change. No effusion. 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 ? Left: -Unremarkable left knee.? External Record Review External record reviewed: Office record and Outpatient record Prescription Management I considered prescription management with: Pain Medication Chronic Conditions Patient?s care impacted by: Diabetes and Other ( coronary artery disease and cirrhosis) Critical Care Time Critical Care Time Critical Care Time: No Discharge Plan Discharge Clinical Impression: Osteoarthritis of right knee Patient Disposition: Home, Self-Care Instructions: Osteoarthritis (DC), Knee Pain (ED) Additional Instructions: take the prescribed anti-inflammatory medication as needed for pain you can also try the topical anti-inflammatory medication you need to follow back up with Orthopedics for further evaluation and treatment call for an appointment - name and number below Prescriptions: New diclofenac sodium 1 % gel 2 g topical QID Qty: 100 0RF Rx Instructions: apply to single elbow, wrist or hand; for hand includes palm/fingers/back of hand naproxen 500 mg tablet 500 mg PO BID PRN (Reason: pain) Qty: 20 0RF No Action simethicone [Gas Relief (simethicone)] 125 mg capsule 125 mg PO BID-QID PRN (Reason: abdominal distention) Qty: 20 0RF aspirin 81 mg tablet,delayed release (DR/EC) 81 mg PO DAILY Qty: 30 5RF mercaptopurine 50 mg tablet 50 mg PO DAILY Qty: 30 2RF vitamin A palmitate 3,000 mcg (10,000 unit) tablet 10,000 unit PO DAILY Qty: 90 1RF thiamine HCl (vitamin B1) 100 mg tablet 100 mg PO DAILY Qty: 90 1RF Galzin 50 mg (zinc) capsule 50 mg PO DAILY Qty: 90 0RF ascorbic acid (vitamin C) 1,000 mg capsule 1 g PO DAILY Qty: 90 1RF lansoprazole 30 mg capsule,delayed release(DR/EC) 30 mg PO DAILY Qty: 60 2RF linaclotide 290 mcg capsule 290 mcg PO DAILY Qty: 30 1RF Xifaxan 550 mg tablet 550 mg PO BID Qty: 60 6RF sucralfate 100 mg/mL suspension 10 ml PO BID Qty: 1000 2RF lorazepam 0.5 mg tablet 0.5 mg PO QID PRN (Reason: Anxiety) ondansetron 4 mg tablet,disintegrating 4 mg PO Q6-8H PRN (Reason: Nausea) loratadine 10 mg Tablet 10 mg PO DAILY PRN (Reason: Allergy Symptoms) oxycodone 5 mg tablet 5 mg PO Q4-6H PRN (Reason: Pain) nortriptyline 10 mg PO DAILY PRN (Reason: Insomnia) clopidogrel [Plavix] 75 mg Tablet 75 mg PO DAILY (DME) shade Rendon See Rx Instructions .ROUTE .MEDSUPPLY Qty: 1 0RF Rx Instructions: As directed Jardiance 25 mg Tablet 25 mg PO DAILY fluticasone propionate 50 mcg/actuation spray,suspension 50 mcg intranasal DAILY PRN (Reason: Nasal Congestion) albuterol sulfate 90 mcg/actuation HFA aerosol inhaler 90 mcg inhalation BID PRN (Reason: Shortness Of Breath) metformin 500 mg tablet 500 mg PO BID glipizide 10 mg tablet 10 mg PO DAILY lisinopril 2.5 mg tablet 2.5 mg PO DAILY cholecalciferol (vitamin D3) 25 mcg (1,000 unit) capsule 25 mcg PO DAILY alcohol swabs [Alcohol Prep Pads] Pads, Medicated topical Gemtesa 75 mg tablet 75 mg PO DAILY atorvastatin 20 mg tablet 20 mg PO BEDTIME Ref[place]: [facility] [place]Provider Group] (right knee pain, would like MRI and to discuss surgical options) Eduardo Garcia MD [Primary Care Provider] - Interventions: ED Discharge Assessment Last Done: 12/04/22 09:54 Discharge Date/Time: 12/04/22 09:54
== END 2022-12-04 09:54 | disposition home or self-care (01) ==
PROVIDERS: Emergency Provider Emergency Medicine Emergency Medical Services; PCP Internal Medicine
DX: M17.11 Unilateral primary osteoarthritis, right knee (principal); M25.561 Pain in right knee; E11.9 Type 2 diabetes mellitus without complications; E78.5 Hyperlipidemia, unspecified; G89.29 Other chronic pain; M54.9 Dorsalgia, unspecified; Z79.891 Long term (current) use of opiate analgesic; Z95.5 Presence of coronary angioplasty implant and graft; Z79.84 Long term (current) use of oral hypoglycemic drugs; Z79.899 Other long term (current) drug therapy; Z79.82 Long term (current) use of aspirin
CPT/HCPCS: 96372; 99283; 99284; J1885

== ENCOUNTER 2022-12-20 11:06 | Outpatient (AMB) | payer MEDICARE, MEDICAID, SELFPAY ==
[2022-03-27 09:43] VITALS: BP 128/60; BMI 27.1
--- NOTE | 2022-12-20 11:08 | A.OFFVIS_ITS ---
Intake Vital Signs 12/20/22 11:10 Height 5 ft 2 in Weight 145 lb 8.081 oz BMI 26.6 BP 126/64 Blood Pressure Location Rt brachial Position Sitting Respiration 15 Pulse 77 Pulse Source Pulse Oximeter Temp 97.9 F Temp Source Tympanic Pulse Oximetry (%) 98 Oxygen Delivery Method Room Air Intake Visit Reasons: FM/SLE Aircraft Communicator Required: No Accompanied by: Self / Same As Patient Allergies duloxetine [From CYMBALTA] Allergy (Intermediate, Verified 12/20/22 11:14) SHAKINESS Medication List - Last Reconciled 12/20/22 by Viji Chavez RN albuterol sulfate 90 mcg/actuation 90 mcg inhalation BID PRN ascorbic acid (vitamin C) 1 g PO DAILY aspirin 81 mg PO DAILY atorvastatin 20 mg PO BEDTIME cholecalciferol (vitamin D3) 25 mcg PO DAILY clopidogrel (Plavix) 75 mg PO DAILY diclofenac sodium 1% 2 grams topical QID empagliflozin (Jardiance) 25 mg PO DAILY ferrous sulfate 325 mg PO DAILY fluticasone propionate 50 mcg/actuation 50 mcg intranasal DAILY PRN glipizide 10 mg PO DAILY lansoprazole 30 mg PO DAILY linaclotide 290 mcg PO DAILY loratadine 10 mg PO DAILY PRN lorazepam 0.5 mg PO QID PRN metformin 500 mg PO BID naproxen 500 mg PO BID PRN [nortriptyline 10 mg PO DAILY PRN] ondansetron 4 mg PO Q6-8H PRN oxycodone 5 mg PO Q4-6H PRN rifaximin (Xifaxan) 550 mg PO BID simethicone (Gas Relief (simethicone)) 125 mg PO BID-QID PRN sucralfate 10 mL PO BID thiamine HCl (vitamin B1) 100 mg PO DAILY vitamin A palmitate 10,000 units PO DAILY walker As directed zinc acetate (Galzin) 50 mg PO DAILY HPI HPI Comments History of Present Illness Details The patient returns for evaluation of her fibromyalgia, lupus and osteoarthritis. In general she has been having widespread pains that continue in most areas. This has been more severe in the right knee. She had a corticosteroid injection in that knee a couple of years ago that was helpfu. The injectrion was repeated in Orthopedics in September and it did not help her much. Pains are worse in the knee with weight-bearing activity such as walking. She notes occasional swelling. Other joints do not really swell that much. She tells me that her Imuran for her auto-immune hepatitis has been stopped but she does not understand why. She was recently put on ferrous sulfate because of the development of an iron deficiency anemia. She has had no significant skin rashes, oral ulcers, fevers, abdominal pain or chest pain. [facility] Medical History (Updated 12/20/22 @ 13:11 by Lars Nichole MD) Abdominal bloating Antiphospholipid antibody syndrome Arthritis Autoimmune hepatitis Cirrhosis Cirrhosis Diabetes POOL (dyspnea on exertion) Fibromyalgia Gallstones High blood pressure Leg pain, right Lupus Nonalcoholic steatohepatitis (SHARMA) Surgical History History of carpal tunnel release History of cataract surgery (2010) History of cervical discectomy (07/2009) History of colonoscopy History of heart artery stent History of repair of right rotator cuff (08/2011) History of shoulder surgery Hx of cholecystectomy Hx of endoscopy Family History Father History of diabetes mellitus, type II History of hypertension History of heart bypass surgery Mother History of diabetes mellitus, type II Brother History of gout Paternal Uncle Cancer Paternal Aunt Cancer Social History Household Members: None Housing: Apartment Are you a primary ambulatory care nurse to a significant other at home: No 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 have visiting nurse 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 Negative for appetite change, weight change, fever, chills, malaise Eyes Details: Negative for vision change, dry eyes,headaches and dizziness ENT Details: Negative for hearing change, tinnitus, oral ulcer, nose bleeds and oral dryness. Card Details: Negative chest pain, edema and syncope Resp Details: Negative for SOB, cough and wheezing GI Details: Negative indigestion/heartburn, nausea, abdominal pain, bowel changes, diarrhea, constipation and bloody stool. Skin/Breast Details: Negative for itching, rash, hives, Raynaud's symptoms, sun sensitivity, and skin cancer Endo Details: Negative for polyuria and polydypsia Herberth/Lymph Details: Negative for excessive bruising or bleeding. Physical Exam Vital Signs: Last Vital Signs Temp 97.9 F 12/20/22 11:10 Pulse 77 12/20/22 11:10 Resp 15 12/20/22 11:10 BP 126/64 12/20/22 11:10 Pulse Ox 98 12/20/22 11:10 Oxygen Delivery Method Room Air 12/20/22 11:10 BMI result Body Mass Index 26.6 APPEARANCE: Patient in no acute distress EYES no redness, pupils equal and reactive to light, eyelids normal EARS: External ear normal, canal clear and tympanic membrane normal. NOSE/SINUS: Airflow through both nares, no nasal discharge, no bleeding THROAT: Oral mucosa moist, no ulcerations NECK: No thyromegaly or masses, no adenopathy, trachea midline. HEART: Regulrar rhythm, S1-S2 heard, no murmurs, rubs or gallops. LUNG: Clear to percussion and auscultation ABD: Normal bowel sounds, no organomegaly, masses or tenderness. EXTREMITIES: No edema, no calf tenderness, normal peripheral pulses. SKIN: No inflammatory or neoplastic lesions. Normal color and turgor JOINT EXAM: ?? Cervical Spine:.? Full range of motion without pain; no tenderness. Thoracic Spine:.? No scoliosis.? No tenderness on palpation. Lumbar Spine:? Alignment normal.?? mild pain with extremes of range of motion with some paraspinal muscle tenderness. Chest Wall.? No tenderness, swelling, increased warmth or erythema. Hands:.? Normal pain-free range of motion with and mild tenderness across the PIP is and MCPs but there is no swelling, increased warmth or erythema.? I see no thenar atrophy, sensory loss, or flexor tendon triggering. Wrists:.? Normal pain-free range of motion without tenderness, swelling, increased warmth or erythema. Elbows:. Normal pain-free range of motion without tenderness, swelling, increased warmth or erythema. Shoulders:.?? Full range of motion with mild anterior discomfort.? Slight anterior tenderness without adenopathy, weakness, swelling, increased warmth or erythema. Hips:.? Full range of motion with some lumbar pain at the extremes of internal and external rotation.? No groin pain with motion. Hip bursa:.? No tenderness. Knees:.?? Right:? Mild pain with extremes of normal flexion extension.? There is mild to moderate patellofemoral crepitus and medial compartment tenderness without redness or effusion.? Left: Normal pain-free range of motion with? Mild patellofemoral crepitus but no effusion, tenderness, swelling, increased warmth or erythema.? Ankles:.? Normal pain-free range of motion without tenderness, swelling, increased warmth or erythema. Feet:.? Normal pain-free range of motion without tenderness, swelling, increased warmth or erythema. Tender points:?? mild tenderness to digital palpation at the occiput, trapezius, second rib, lateral epicondyle, knees, greater trochanter and gluteal area bilaterally. ? Results Reviewed Results Reviewed: Laboratory Tests 12/13/22 12/13/22 10:10 10:10 WBC 4.9 Hgb 10.7 L Creatinine 0.81 AST 148 H ALT 96 H Alkaline Phosphatase 239 H Assessment & Plan Assessment & Plan (1) Chronic autoimmune hepatitis: Comment: liver biopsy 2018 showing inflammation and cirrhosis. Positive antismooth muscle antibody. Treated with azathioprine. Code(s): K75.4 - Autoimmune hepatitis (2) Lupus: Code(s): M32.9 - Systemic lupus erythematosus, unspecified (3) Osteoarthritis of right knee: Code(s): M17.11 - Unilateral primary osteoarthritis, right knee (4) Fibromyalgia: Code(s): M79.7 - Fibromyalgia Plan The patient has widespread pains but no signs on exam of an active inflammatory process. The patient has some significant tenderness on the medial aspect of the knee without effusion, redness or warmth. It looks like the overall pains are more consistent with fibromyalgia rather than an inflammatory process such as SLE. The right knee I think has some internal derangement probably on a degenerative basis or some mild osteoarthritis. I am not sure why the MRI scan ordered in October has not been scheduled yet. I did ask the physics technical officer here to check with MRI and apparently they have had scheduling difficulties because the machine was broken. They said they would call the patient to set up the MRI. She would need follow-up in Orthopedics after that. I will check some inflammatory markers and lupus activity markers to see if that could shed any light on her current symptoms but again without joint swelling this looks more like fibromyalgia. A recheck in 4 months is recommended. Orders: Orders Alkaline Phosphatase Today M32.9 - Systemic lupus erythematosus, unspecified C Reactive Protein Today M32.9 - Systemic lupus erythematosus, unspecified Erythrocyte Sedimentation Rate Today M32.9 - Systemic lupus erythematosus, unspecified Complement C3 Today M32.9 - Systemic lupus erythematosus, unspecified Complement C4 Today M32.9 - Systemic lupus erythematosus, unspecified Protein Creatinine Ratio, Ur Today M32.9 - Systemic lupus erythematosus, unspecified Coding Level of Care Code Est Pt Level 4 (17473) Diagnoses Chronic autoimmune hepatitis K75.4 Lupus M32.9 Osteoarthritis of right knee M17.11 Fibromyalgia M79.7
[2022-12-20 11:10] VITALS: BP 126/64; PULSE 77; RESP 15; TEMP 36.6; O2SAT 98; BMI 26.6
== END 2022-12-20 11:50 | disposition home or self-care (01) ==
PROVIDERS: PCP Internal Medicine; Visit Provider Internal Medicine Rheumatology
DX: K75.4 Autoimmune hepatitis (principal); M32.9 Systemic lupus erythematosus, unspecified; M17.11 Unilateral primary osteoarthritis, right knee; M79.7 Fibromyalgia
CPT/HCPCS: 99214

== ENCOUNTER → 2022-12-20 11:06 | Outpatient (BNVA) | payer MEDICARE, MEDICAID, SELFPAY ==
[2022-03-27 09:43] VITALS: BP 128/60; BMI 27.1
== END ==
PROVIDERS: PCP Internal Medicine; Visit Provider Internal Medicine Rheumatology
DX: M32.9 Systemic lupus erythematosus, unspecified (principal); M17.11 Unilateral primary osteoarthritis, right knee; M79.7 Fibromyalgia; K75.4 Autoimmune hepatitis
CPT/HCPCS: 36415; 84075; 84156; 85652; 86140; 86160; 99212

== ENCOUNTER 2022-12-20 12:03 | Outpatient (REF) | payer MEDICARE, MEDICAID, SELFPAY ==
[2022-03-27 09:43] VITALS: BP 128/60; BMI 27.1
[2022-12-20 14:15] LABS: Alkaline Phosphatase 199 U/L (39-117); C Reactive Protein 0.94 mg/dL (< or = 0.50)
[2022-12-20 14:41] LABS: Creatinine Urine 22.68 mg/dL; Total Protein Urine Random < 7 mg/dL (<12)
[2022-12-20 15:07] LABS: Erythrocyte Sedimentation Rate 67 MM/HR (0-20)
[2022-12-24 20:59] LABS: Complement C3 169 mg/dL (83-193)
== END 2022-12-20 12:04 | disposition home or self-care (01) ==
LOC: HO.10HDL 12:03
PROVIDERS: Visit Provider Internal Medicine Rheumatology
DX: Z13.89 Encounter for screening for other disorder (principal)
CPT/HCPCS: 36415; 84075; 84156; 85652; 86140; 86160

== ENCOUNTER 2023-01-29 08:58 | Outpatient (REF) | payer MEDICARE, MEDICAID, SELFPAY ==
[2022-03-27 09:43] VITALS: BP 128/60; BMI 27.1
--- NOTE | ~2023-01-29 | MR_ITS ---
EXAMINATION: MR KNEE WITHOUT CONTRAST, RIGHT CLINICAL INFORMATION: Unilateral primary osteoarthritis, right knee. Chronic right knee pain. COMPARISON: MRI knee dated 12/19/2016. TECHNIQUE: MRI of the knee without contrast was performed using routine sequences on a high-field scanner. FINDINGS: MENISCI: Medial Meniscus: Complex tear of the posterior horn is new as compared to prior with a high-grade radial component at the posterior root as well as a horizontal component extending to the undersurface near the inner margin, propagating into the meniscal body. Lateral Meniscus: Intact. LIGAMENTS: Cruciate: Intact. Collateral: Ossification along the medial femoral epicondyle is consistent with a Patsy-Stieda lesion, consistent with chronic changes of prior MCL injury. No acute MCL injuries. LCL complex is normal. EXTENSOR MECHANISM: Chronic osseous fragmentation at the tibial tuberosity, consistent with a remote history of Shala-Schlatter disease. Edema signal is present in the superolateral aspect of Hoffa's fat pad. ARTICULAR CARTILAGE/BONE: Patellofemoral Compartment: There is mild partial-thickness chondral thinning at the patella, most notably at the median ridge, with mild chondral fibrillation. A small chondral fissure is suspected at the inferior aspect of the medial trochlear facet. Trochlear morphology is normal. Medial Compartment: Mild chondral thinning at the medial femoral condyle weightbearing surface. Tiny marginal osteophytes. Lateral Compartment: Minimal chondral thinning and surface irregularity at the lateral tibial plateau posteriorly, unchanged. JOINT FLUID AND BURSAE: Trace effusion and Steinberg's cyst. No appreciable intra-articular loose bodies. MR/MR knee RT wo con IMPRESSION: 1. New complex tear of the posterior horn of the medial meniscus with a high-grade radial component at the posterior root. 2. Mild tricompartmental osteoarthritis, not significantly changed as compared to prior. 3. Trace effusion and Steinberg's cyst. 4. Old healed MCL injury with associated ossification near the origin on the medial femoral epicondyle.
== END 2023-01-29 08:59 | disposition home or self-care (01) ==
LOC: HO.MRI 08:58
PROVIDERS: PCP Internal Medicine; Visit Provider Orthopaedic Surgery
DX: M17.11 Unilateral primary osteoarthritis, right knee (principal)
CPT/HCPCS: 73721

== ENCOUNTER 2023-02-11 09:46 | Outpatient (AMB) | payer MEDICARE, MEDICAID, SELFPAY ==
[2022-03-27 09:43] VITALS: BP 128/60; BMI 27.1
--- NOTE | 2023-02-11 09:59 | A.OFFVIS_ITS ---
Intake Intake Visit Reasons: OV - Right Knee MRI review Intake Note: The patient agreed to use of a medical billing coder during this encounter. Scribed for Dr. Demario Black by Keyla Nava, medical billing coder, on 02/11/2023 at 10:26 am EST. Garcia is a 62 year old female who presents today for an MRI review of her right knee. She reports that the injections in the past have not been helpful, last injection 10/15/22. Allergies duloxetine [From CYMBALTA] Allergy (Intermediate, Verified 02/11/23 10:04) SHAKINESS HPI OV - Right Knee MRI review HPI Details Radha comes in today for MRI review her right knee. She has had right knee pain for about 2 years injections have been helpful. MRI did show a medial meniscus tear. She describes aching and pain in her right knee. Her primary concern is her giving way. She states she does occasionally have severe pain but at times she has pain just sitting there. HPI Comments History of Present Illness Details Radha Chong is a Upper Sorbian speaking 62 year old female who presents today for an MRI review of her right knee. [facility] Medical History (Updated 02/11/23 @ 13:06 by Demario Black MD) Cirrhosis Antiphospholipid antibody syndrome Leg pain, right Abdominal bloating Arthritis Lupus POOL (dyspnea on exertion) Gallstones Cirrhosis Nonalcoholic steatohepatitis (SHARMA) Autoimmune hepatitis High blood pressure Fibromyalgia Diabetes Surgical History History of heart artery stent Hx of cholecystectomy Hx of endoscopy History of colonoscopy History of shoulder surgery History of cataract surgery (2010) History of repair of right rotator cuff (08/2011) History of cervical discectomy (07/2009) History of carpal tunnel release Family History Father History of diabetes mellitus, type II History of hypertension History of heart bypass surgery Mother History of diabetes mellitus, type II Brother History of gout Paternal Uncle Cancer Paternal Aunt Cancer Social History Household Members: None Housing: Apartment Are you a primary child care attendant to a significant other at home: No 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 have visiting nurse 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 Site was prepped using aseptic technique. Patient tolerated the procedure well. Primary Site: right knee Approach Used: anterolateral Coding - Large joint Procedure code (CPT) selection complete Results Reviewed Results Reviewed: 02/11/23 10:28 BUPivacaine MPF 0.25 % [Sensorcaine-MPF 0.25% 10 ML] 10 ml .ROUTE .STK-MED ONE Lidocaine HCl 2 % MPF [Xylocaine 2 % MPF] 5 ml .ROUTE .STK-MED ONE dexAMETHasone sod phosphate [Decadron] 4 mg .ROUTE .STK-MED ONE I personally reviewed the MR images. New complex tear of the posterior horn of the medial meniscus with a high-grade radial component at the posterior root. 2. Mild tricompartmental osteoarthritis, not significantly changed as compared to prior. Assessment & Plan Assessment & Plan (1) Tear of medial meniscus of right knee: Code(s): S83.241A - Other tear of medial meniscus, current injury, right knee, initial encounter Plan: Alfredo does have a medial meniscus tear. We discussed treatment options. I explained arthroscopic surgery of but she is pretty hesitant to undergo surgery. She has multiple medical conditions and injections have been helpful in the past. I injected her right knee she can follow-up with me ends 3 months or sooner if she worsens. Coding Level of Care Code Est Pt Level 4 (68620) Diagnoses Tear of medial meniscus of right knee S83.241A CPT Codes Coding - Large joint: 39260 - Large joint ([id number])
== END 2023-02-11 10:42 | disposition home or self-care (01) ==
PROVIDERS: PCP Internal Medicine; Visit Provider Orthopaedic Surgery
DX: S83.241A Other tear of medial meniscus, current injury, right knee, initial encounter (principal); M17.11 Unilateral primary osteoarthritis, right knee
CPT/HCPCS: 20610; 99214

== ENCOUNTER → 2023-02-11 09:46 | Outpatient (BNVA) | payer MEDICARE, MEDICAID, SELFPAY ==
[2022-03-27 09:43] VITALS: BP 128/60; BMI 27.1
== END ==
PROVIDERS: PCP Internal Medicine; Visit Provider Orthopaedic Surgery
DX: S83.241A Other tear of medial meniscus, current injury, right knee, initial encounter (principal)
CPT/HCPCS: 20610; 99212; J1100

== ENCOUNTER 2023-02-13 10:20 | Outpatient (REF) | payer MEDICARE, MEDICAID, SELFPAY ==
[2022-03-27 09:43] VITALS: BP 128/60; BMI 27.1
[2023-02-15 12:39] LABS: Prot Elec - Albumin 3.7 g/dL (3.8-4.8); Prot Elec - Alpha1 0.3 g/dL (0.2-0.3); Prot Elec - Alpha2 0.7 g/dL (0.5-0.9); Prot Elec - Beta 1 0.6 g/dL (0.4-0.6); Prot Elec - Beta 2 0.6 g/dL (0.2-0.5); Prot Elec - Gamma 3.3 g/dL (0.8-1.7); Prot Elec - Total Protein 9.2 g/dL (6.1-8.1)
[2023-02-20 18:44] LABS: Kappa, Serum 900 mg/dL (176-443); Lambda, Serum 375 mg/dL (91-240)
== END 2023-02-13 10:21 | disposition home or self-care (01) ==
LOC: HO.LAB 10:20
PROVIDERS: PCP Internal Medicine; Visit Provider Internal Medicine
DX: R77.8 Other specified abnormalities of plasma proteins (principal); D89.2 Hypergammaglobulinemia, unspecified
CPT/HCPCS: 36415; 83883; 84165

== ENCOUNTER 2023-02-25 09:12 | Outpatient (REF) | payer MEDICARE, MEDICAID, SELFPAY ==
[2022-03-27 09:43] VITALS: BP 128/60; BMI 27.1
[2023-02-25 10:20] LABS: MANUAL DIFF FLAG NO
[2023-02-25 10:43] LABS: Basophils Percent Auto 1.1 % (0-2); Eosinophils Absolute Auto 0.1 X10*3/uL (0.0-0.4); Eosinophils Percent Auto 2.4 % (0-4); Hematocrit 39.3 % (37.0-47.0); Hemoglobin 11.9 g/dl (12.0-16.0); Imm Gran Abs Auto 0.01 X10*3/uL (0.00-0.03); Imm Gran Pct Auto 0.3 % (0.0-0.4); Lymphocytes Absolute Auto 1.2 X10*3/uL (1.2-4.9); Lymphocytes Percent Auto 30.7 % (20-40); Mean Corpuscular HGB Conc 30.3 g/dl (31.0-35.0); Mean Corpuscular Hemoglobin 25.9 pg (27.0-33.0); Mean Corpuscular Volume 85.6 fL (80.0-98.0); Mean Platelet Volume 10.2 fL (9.4-12.3); Monocytes Absolute Auto 0.4 X10*3/uL (0.1-1.2); Monocytes Percent Auto 10.7 % (2-11); Neutrophils Absolute Auto 2.1 x10*3/uL (2.0-8.3); Neutrophils Percent Auto 54.8 % (45-73); Platelet Count 183 X10*3/uL (160-400); Red Blood Count 4.59 X10*6/uL (4.20-5.50); Red Cell Distribution Width 16.3 % (11.0-16.0); White Blood Count 3.7 X10*3/uL (4.8-10.8)
[2023-02-25 10:55] LABS: Prothrombin Time 12.6 SEC (11.1-13.3)
[2023-02-25 11:23] LABS: Alanine Aminotransferase 68 U/L (0-31); Albumin Level 3.7 g/dL (3.5-5.0); Alkaline Phosphatase 175 U/L (39-117); Anion Gap 13 (12-20); Aspartate Amino Transferase 85 U/L (5-31); Bilirubin Total 0.5 mg/dL (0.0-1.0); Blood Urea Nitrogen 8 mg/dL (9-16); Calcium 9.4 mg/dL (8.4-10.2); Carbon Dioxide 24 mmol/L (22-29); Chloride 102 mmol/L (96-108); Estimated Glomerular Filt Rate > 60; Glucose Random 166 mg/dL (60-115); Potassium 4.1 mmol/L (3.3-5.1); Sodium 135 mmol/L (135-145); Total Protein 9.6 g/dL (6.5-8.0)
[2023-03-13 21:39] LABS: TPMT Activity 16
== END 2023-02-25 09:13 | disposition home or self-care (01) ==
LOC: HO.LAB 09:12
PROVIDERS: PCP Internal Medicine; Visit Provider Internal Medicine Gastroenterology
DX: K75.81 Nonalcoholic steatohepatitis (NASH) (principal); K75.4 Autoimmune hepatitis
CPT/HCPCS: 36415; 80053; 82550; 84433; 85025; 85610; 99212

== ENCOUNTER 2023-02-25 09:12 | Outpatient (AMB) | payer MEDICARE, MEDICAID, SELFPAY ==
[2022-03-27 09:43] VITALS: BP 128/60; BMI 27.1
--- NOTE | 2023-02-25 09:15 | A.OFFVIS_ITS ---
Intake Vital Signs 02/25/23 09:16 Height 5 ft 2 in Weight 141 lb 1.533 oz BMI 25.8 BP 132/62 Blood Pressure Location Lt brachial Position Sitting Pulse 75 Intake Visit Reasons: Follow Up Labs Intake Note: Radha presents in the office as a follow up. CC: She had the flu shot on and she just does not feel well. She wants to know why you have her still on the Xifaxin. Hot Roll Laminator Required: No Allergies duloxetine [From CYMBALTA] Allergy (Intermediate, Verified 02/25/23 09:16) SHAKINESS HPI Follow Up Labs HPI Details RECAP- index visit 04/2019 ? she was diagnosed with AIH and had been on imuran for 2 yrs (50 mg) ? but was then changed to 6 tabs MTX weekly and folic acid daily, after imuran stopped but this was recommenced and the MTX stopped due to SE and rising LFT ? she was dx based on lab work per her report ? she had liver bx ordered by her ID specialist (she was seeing for assessment of hep c but she doesn;t have it) ? she had pain since liver bx (02/2019) but does admit maybe it was there before ? no vomiting but occ nausea ? sometimes has constipation, which exacerbates her abdo pain mentioned above--stool was hard, and she has to push ? appetite is not so good, can't say why ? weight was going down ? she had been having constipation, on oxycodone 10 mg daily ? on prednisone for lupus ? she was given movantik for opiate induced constipation and pentoxyfilin for possible SHARMA ? she was referred to Dr Desai for gallstones causing abdo pain, and had cholecystectomy 05/2020 h pylori f/u testing has been negative ?? ? TESTS: ? she has abn AST/ALT on and off for last several years on review of 115 network disks ? cbc 02/2019--normal ? LFT: 12/2018--normal, LFT 06/25-2019 mild AST, ALT elevation ? LFT: 09/2019--AST36, ALT 42, alk phos--103, bili 0.4 ? LFT- 11/2019- bili-nml, AST-37, ALT-39, alk phos- 92 ? LFT 12/2019-- AST-42,ALT,40, GGT 109, alk phos--nml, bili 0.6 ? HEAVEN 1:1280 ? ds DNA--pos ? ? ? LFT- 04/19/2020--AST94, ALT 87, alk phos 148, bili 0.5 LFT 08/2020--nml, protein high, Ig levels high, SPEP neg LFT 12/16-- bili 5, AST 96, ALT 239 ( Imuran had been stopped due to v high levels of 6 TG and ^ MMP -->72002) vitamin A level had been low--improved with replacement ?BIOPSY: ? liver bx with grade 1, stage 4 cirrhosis, mixed macro and microvesicular steatosis, and background steatohepatitis ? ? ? IMAGING: Upper GI series: moderate GERD< nml stomach and duodenum US 11/2021- cirrhosis, no mass GES- 2021- nml EGD/colonoscopy- 04/2021-- esophagitis, gastritis, h pylori noted, x 1Ta removed, MRI 03/2021-- nodular liver, venous collaterals, MRI 08/2020--stable LN, liver with borderline steatosis, no mass lesions MRI 05/2020--upper abdo LN--stable, cirrhosis of liver noted CT 12/2019--liver calcifications, retroperitoneal LNs, gallstones ? u/s 10/2019--gallstones, adenomyomatosis, F3-4 elastography ? u/s 11/2018--coarse liver, no masses, ? CT 2017--mildly enalrged LN, hepatic granulomas, central mesenteric stranding ? EGD 04/2019--reflux, no varices ? INTERIM: she has issues with gas and constipation she is taking oxycodone every few days at least she feels relistor wa shelping her in the past she is taking multivitamins no nausea or vomiting been off 6 MP/imuran since last several months appetite is fair, weight is not holding EXAM: GENERAL: The patient is well developed and nontoxic. VITAL SIGNS:see workflow HEENT: Nonicteric sclerae, PERRLA, EOMI. Oropharynx clear. Moist mucous membranes. Conjunctivae appear well perfused. No thyroid mass. CHEST: Chest wall is nontender. HEART: Regular rate and rhythm without murmurs. LUNGS: Clear to auscultation bilaterally. ABDOMEN: Soft, positive bowel sounds, mild tender RUQ, no organomegaly,? lipoma felt SKIN: No rash, no excessive bruising, petechiae, or purpura. NEUROLOGIC: Cranial nerves II-XII intact without motor/sensory deficit. Assessments ? 1. Cirrhosis of liver-suspected from com bination of AIH and SHARMA, imuran stopped due to high levels 2. Gallstones AND ADENOMYOMATOSIS, s/p c holecystectomy by Dr Desai 3. constipation-opiate related with bloa ting ? PLAN: 1/ recheck labs now for up to date MELD, also check TPMT levels depending on this may reintroduce AZA at lower dose vs mycophenolate 2/ reorder relistor 3/ US abdomen for HCC screening q 6 sherrell hly, order now 4/ has still been taking rifaximin, stop now PFSH Medical History Cirrhosis Antiphospholipid antibody syndrome Leg pain, right Abdominal bloating Arthritis Lupus POOL (dyspnea on exertion) Gallstones Cirrhosis Nonalcoholic steatohepatitis (SHARMA) Autoimmune hepatitis High blood pressure Fibromyalgia Diabetes Surgical History History of heart artery stent Hx of cholecystectomy Hx of endoscopy History of colonoscopy History of shoulder surgery History of cataract surgery (2010) History of repair of right rotator cuff (08/2011) History of cervical discectomy (07/2009) History of carpal tunnel release Family History Father History of diabetes mellitus, type II History of hypertension History of heart bypass surgery Mother History of diabetes mellitus, type II Brother History of gout Paternal Uncle Cancer Paternal Aunt Cancer Social History Household Members: None Housing: Apartment Are you a primary campground caretaker to a significant other at home: No 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 have visiting nurse 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 Positive antismooth muscle antibody. Treated with azathioprine. Code(s): K75.4 - Autoimmune hepatitis Orders: Orders Thiopurine Methyltransferase Today K75.4 - Autoimmune hepatitis Comprehensive Met. Panel Today K75.4 - Autoimmune hepatitis, K75.81 - Nonalcoholic steatohepatitis (SHARMA) US abdomen comp w elastography Today K75.4 - Autoimmune hepatitis Complete Blood Count Auto Diff Today K75.4 - Autoimmune hepatitis Prothrombin Time INR Today K75.4 - Autoimmune hepatitis Medications: New methylnaltrexone (Relistor) 450 mg (3 x 150 mg) PO DAILY 90 tabs 1RF Coding Level of Care Code Est Pt Level 4 (61831) Diagnoses Chronic autoimmune hepatitis K75.4
[2023-02-25 09:16] VITALS: BP 132/62; PULSE 75; BMI 25.8
== END 2023-02-25 09:47 | disposition home or self-care (01) ==
PROVIDERS: PCP Internal Medicine; Visit Provider Internal Medicine Gastroenterology
DX: K75.4 Autoimmune hepatitis (principal)
CPT/HCPCS: 99214

== ENCOUNTER 2023-02-28 09:29 | Outpatient (REF) | payer MEDICARE, MEDICAID, SELFPAY ==
[2022-03-27 09:43] VITALS: BP 128/60; BMI 27.1
[2023-03-04 13:22] LABS: Prot Elec - Albumin 3.9 g/dL (3.8-4.8); Prot Elec - Alpha1 0.3 g/dL (0.2-0.3); Prot Elec - Alpha2 0.8 g/dL (0.5-0.9); Prot Elec - Beta 1 0.7 g/dL (0.4-0.6); Prot Elec - Beta 2 0.6 g/dL (0.2-0.5); Prot Elec - Gamma 3.3 g/dL (0.8-1.7); Prot Elec - Total Protein 9.5 g/dL (6.1-8.1)
[2023-03-04 19:54] LABS: IgA 579 mg/dL (70-320); IgG 3737 mg/dL (600-1540); IgM 244 mg/dL (50-300)
== END 2023-02-28 09:30 | disposition home or self-care (01) ==
LOC: HO.LAB 09:29
PROVIDERS: PCP Internal Medicine; Visit Provider Internal Medicine
DX: D89.2 Hypergammaglobulinemia, unspecified (principal); R94.5 Abnormal results of liver function studies
CPT/HCPCS: 36415; 80076; 82784; 84165

== ENCOUNTER 2023-04-08 08:39 | Outpatient (REF) | payer MEDICARE, MEDICAID, SELFPAY ==
[2022-03-27 09:43] VITALS: BP 128/60; BMI 27.1
--- NOTE | ~2023-04-08 | US_ITS ---
EXAMINATION: US COMPLETE ABDOMEN WITH LIVER ELASTOGRAPHY CLINICAL INFORMATION: Hepatitis. COMPARISON: CT abdomen and pelvis dated 01/14/2020; abdominal ultrasound with elastography dated 08/28/2022. TECHNIQUE: Real-time imaging of the abdominal viscera. Noninvasive ultrasound liver fibrosis assessment is performed using Jimmie ElastPQ point quantification shear wave elastography (2D-SWE) with a C5-2 MHz transducer. Multiple elastography samples are obtained. FINDINGS: PANCREAS: Normal. The visualized pancreatic head and body are normal in appearance. The remainder of the pancreas is obscured from visualization by the overlying bowel gas. ABDOMINAL AORTA: The proximal, middle, and distal aortic segments are normal in caliber. INFERIOR VENA CAVA: Visualized portions are normal. LIVER: The liver demonstrates normal size, contour and echogenicity. No focal lesion or intrahepatic biliary duct dilatation. Benign, calcified granulomas are redemonstrated. The right lobe measures 16.2 cm in length. The left lobe measures 11.8 cm in length. Portal flow is towards the liver (hepatopetal). There are 3.5 x 1.2 x 3.9 cm and 2.4 x 1.5 x 2.1 cm periportal lymph nodes again seen. Shear wave liver elastography median stiffness is 1.59 m/s (reference: normal median stiffness is 1.3 m/s or less). IQR/median stiffness to assess sampling precision is 0.09 (reference: good quality data set is IQR/median stiffness of 0.15 or less). GALLBLADDER: Surgically absent. COMMON BILE DUCT: Normal in caliber post-cholecystectomy, measuring 0.8 cm in diameter. RIGHT KIDNEY: At the interpolar aspect, a 5 x 4 x 3 mm angiomyolipoma is redemonstrated.. No hydronephrosis. No renal calculi or focal parenchymal lesions. The kidney measures 10.9 cm in maximum dimension. LEFT KIDNEY: Normal. No hydronephrosis. No renal calculi or focal parenchymal lesions. The kidney measures 11.1 cm in maximum dimension. SPLEEN: Normal. The spleen measures 11.7 cm in maximum dimension. FREE FLUID: None. US/US abdomen comp w elastography IMPRESSION: 1. There is generalized increase in hepatic echotexture, consistent with fatty infiltration or hepatocellular disease. Please correlate clinically. No focal hepatic mass or intrahepatic biliary dilatation is seen. 2. Liver elastography: In the absence of other known clinical signs, measurements rule out compensated advanced chronic liver disease. If there are known clinical signs, further testing may be needed for confirmation. 3. The gallbladder is surgically absent. 4. A tiny right renal benign angiomyolipoma is redemonstrated. 5. Enlarged periportal lymph nodes are redemonstrated, as detailed. REFERENCE: Society of Radiologists in Ultrasound Liver Stiffness Thresholds (2020): LIVER STIFFNESS THRESHOLDS: *Liver Stiffness equal or less than 1.3 m/s: High probability of being normal. *Liver Stiffness less than 1.7 m/s: In the absence of other known clinical signs, rules out compensated advanced chronic liver disease. *Liver Stiffness 1.7-2.1 m/s: Suggestive of compensated advanced chronic liver disease but need further test for confirmation. *Liver Stiffness over 2.1 m/s: Rules in compensated advanced chronic liver disease. *Liver Stiffness over 2.4 m/s: Suggestive of clinically significant portal hypertension. QUALITY OF DATA SET: *IQR/Median value equal or less than 0.15 implies a quality data set. *IQR/Median value over 0.15 implies a poor quality data set. SIGNIFICANT CHANGE FROM PRIOR EXAM: Significant change if liver stiffness measurement is 10% or greater from prior exam. OTHER CONSIDERATIONS: The stage of liver fibrosis may be overestimated in the setting of acute hepatitis, liver inflammation, elevated liver function tests, hepatic vascular congestion, obstructive cholestasis, non-fasting state, and infiltrative diseases such as amyloidosis and lymphoma. In some patients with NAFLD, the liver stiffness thresholds for compensated advanced chronic liver disease may be lower. In causes other than viral hepatitis and NAFLD, liver stiffness thresholds are not well established.
[2023-04-08 09:06] LABS: MANUAL DIFF FLAG NO
[2023-04-08 10:22] LABS: Basophils Absolute Auto 0.1 X10*3/uL (0.0-0.2); Basophils Percent Auto 0.9 % (0-2); Eosinophils Absolute Auto 0.1 X10*3/uL (0.0-0.4); Eosinophils Percent Auto 2.6 % (0-4); Hematocrit 41.4 % (37.0-47.0); Hemoglobin 12.4 g/dl (12.0-16.0); Imm Gran Abs Auto 0.01 X10*3/uL (0.00-0.03); Imm Gran Pct Auto 0.2 % (0.0-0.4); Lymphocytes Absolute Auto 1.4 X10*3/uL (1.2-4.9); Mean Corpuscular Hemoglobin 26.3 pg (27.0-33.0); Mean Corpuscular Volume 87.9 fL (80.0-98.0); Mean Platelet Volume 11.8 fL (9.4-12.3); Monocytes Absolute Auto 0.5 X10*3/uL (0.1-1.2); Monocytes Percent Auto 9.6 % (2-11); Neutrophils Absolute Auto 3.2 x10*3/uL (2.0-8.3); Neutrophils Percent Auto 59.7 % (45-73); Platelet Count 168 X10*3/uL (160-400); Red Blood Count 4.71 X10*6/uL (4.20-5.50); Red Cell Distribution Width 15.1 % (11.0-16.0); White Blood Count 5.3 X10*3/uL (4.8-10.8)
== END 2023-04-08 08:40 | disposition home or self-care (01) ==
LOC: HO.US 08:39
PROVIDERS: PCP Internal Medicine; Visit Provider Internal Medicine Gastroenterology
DX: K75.4 Autoimmune hepatitis (principal)
CPT/HCPCS: 36415; 76705; 76981; 80053; 85025

== ENCOUNTER 2023-04-25 11:12 | Outpatient (REF) | payer MEDICARE, MEDICAID, SELFPAY ==
[2022-03-27 09:43] VITALS: BP 128/60; BMI 27.1
[2023-04-25 11:24] LABS: MANUAL DIFF FLAG NO
[2023-04-25 12:16] LABS: Prothrombin Time 12.2 SEC (11.1-13.3)
[2023-04-25 12:33] LABS: Basophils Absolute Auto 0.1 X10*3/uL (0.0-0.2); Basophils Percent Auto 1.2 % (0-2); Eosinophils Absolute Auto 0.1 X10*3/uL (0.0-0.4); Eosinophils Percent Auto 2.7 % (0-4); Hematocrit 39.4 % (37.0-47.0); Hemoglobin 11.9 g/dl (12.0-16.0); Imm Gran Abs Auto 0.01 X10*3/uL (0.00-0.03); Imm Gran Pct Auto 0.2 % (0.0-0.4); Lymphocytes Absolute Auto 1.2 X10*3/uL (1.2-4.9); Lymphocytes Percent Auto 28.3 % (20-40); Mean Corpuscular HGB Conc 30.2 g/dl (31.0-35.0); Mean Corpuscular Hemoglobin 26.6 pg (27.0-33.0); Mean Corpuscular Volume 87.9 fL (80.0-98.0); Mean Platelet Volume 10.7 fL (9.4-12.3); Monocytes Absolute Auto 0.4 X10*3/uL (0.1-1.2); Monocytes Percent Auto 8.9 % (2-11); Neutrophils Absolute Auto 2.4 x10*3/uL (2.0-8.3); Neutrophils Percent Auto 58.7 % (45-73); Platelet Count 216 X10*3/uL (160-400); Red Blood Count 4.48 X10*6/uL (4.20-5.50); Red Cell Distribution Width 15.6 % (11.0-16.0); White Blood Count 4.1 X10*3/uL (4.8-10.8)
[2023-04-25 12:51] LABS: Alanine Aminotransferase 45 U/L (0-31); Albumin Level 3.9 g/dL (3.5-5.0); Alkaline Phosphatase 161 U/L (39-117); Anion Gap 11 (12-20); Aspartate Amino Transferase 76 U/L (5-31); Bilirubin Total 0.6 mg/dL (0.0-1.0); Blood Urea Nitrogen 7 mg/dL (9-16); Calcium 9.6 mg/dL (8.4-10.2); Carbon Dioxide 26 mmol/L (22-29); Chloride 102 mmol/L (96-108); Estimated Glomerular Filt Rate > 60; Glucose Random 175 mg/dL (60-115); Potassium 3.8 mmol/L (3.3-5.1); Sodium 135 mmol/L (135-145); Total Protein 10.1 g/dL (6.5-8.0)
== END 2023-04-25 11:13 | disposition home or self-care (01) ==
LOC: HO.LAB 11:12
PROVIDERS: Visit Provider Internal Medicine Gastroenterology
DX: K75.81 Nonalcoholic steatohepatitis (NASH) (principal); K75.4 Autoimmune hepatitis; K74.60 Unspecified cirrhosis of liver
CPT/HCPCS: 36415; 80053; 85025; 85610

== ENCOUNTER 2023-04-29 12:52 | Outpatient (AMB) | payer MEDICARE, MEDICAID, SELFPAY ==
[2022-03-27 09:43] VITALS: BP 128/60; BMI 27.1
--- NOTE | 2023-04-29 13:09 | MHC.OFFVIS ---
Intake Vital Signs 04/29/23 13:10 Height 5 ft 2 in Weight 142 lb 13.753 oz BMI 26.1 BP 140/58 H Blood Pressure Location Lt brachial Position Sitting Pulse 78 Pulse Source Pulse Oximeter Intake Visit Reasons: f/up no show 12/2022 Intake Note: f/up patient its fine. Labor Employment Associate Required: Yes Labor Employment Associate Name: Shae/cyracom Accompanied by: Self / Same As Patient Allergies duloxetine [From CYMBALTA] Allergy (Intermediate, Verified 04/29/23 13:12) SHAKINESS Medication List - Last Reconciled 04/29/23 by Ollie Smith MD albuterol sulfate 90 mcg/actuation 90 mcg inhalation BID PRN ascorbic acid (vitamin C) (Vitamin C) 1,000 mg PO DAILY aspirin 81 mg PO DAILY atorvastatin 20 mg PO BEDTIME azathioprine (Imuran) 50 mg PO DAILY blood sugar diagnostic (FreeStyle Lite Strips) As directed cholecalciferol (vitamin D3) 25 mcg PO DAILY clopidogrel (Plavix) 75 mg PO DAILY diclofenac sodium 1% 2 grams topical QID empagliflozin (Jardiance) 25 mg PO DAILY estradiol 0.01%(0.1mg/gram) vaginal ferrous sulfate 325 mg PO DAILY fluticasone propionate 50 mcg/actuation 50 mcg intranasal DAILY PRN glipizide 10 mg PO DAILY lansoprazole 30 mg PO DAILY linaclotide (Linzess) 290 mcg PO DAILY lisinopril 2.5 mg PO DAILY loratadine 10 mg PO DAILY PRN lorazepam 0.5 mg PO QID PRN metformin ER 1,000 mg PO BID methylnaltrexone (Relistor) 450 mg (3 x 150 mg) PO DAILY naproxen 500 mg PO BID PRN [nortriptyline 10 mg PO DAILY PRN] nortriptyline 10 mg PO BEDTIME ondansetron 4 mg PO Q6-8H PRN oxycodone 5 mg PO Q4-6H PRN simethicone (Gas Relief (simethicone)) 125 mg PO BID-QID PRN sucralfate 10 mL PO BID thiamine HCl (vitamin B1) 100 mg PO DAILY vitamin A 1 cap PO DAILY walker As directed zinc acetate (Galzin) 50 mg PO DAILY HPI HPI Comments History of Present Illness Details 62-year-old female who is here for follow-up. She has background history of fibromyalgia and lupus erythematosus. Previously she had echocardiography which showed normal biventricular function without any pericardial effusion. She was complaining of sharp chest pains in the past. Then she returned and was complaining of shortness of breath and burning chest discomfort. She was referred for exercise stress test where she was able to exercise for 2 minute 53 seconds and stopped because of shortness of breath and fatigue. She was changed to Lexiscan which did not show any perfusion defect. She was seen in follow-up and was complaining of exertional shortness of breath and symptoms. After discussion she was taken cardiac catheterization. Cardiac catheterization showed mild left main stenosis which was confirmed on intravascular ultrasound. She had severe mid right coronary artery stenosis which was treated with drug-eluting stent. She was initially on Brilinta and was later changed to Plavix. She is taking aspirin and Plavix at this point. He returns for follow-up today. She is complaining recent onset fatigue as well as dyspnea activities. These symptoms are similar to her pre PCI dyspnea. She is denying any other complaints currently. No bleeding concerns. Hemoglobin has been stable. She was sent for stress Mibi where she was able to exercise for 7 metabolic equivalents. She was able to achieve 92% of her maximum predicted heart rate with mild shortness of breath and isolated premature ventricular complexes. She had a normotensive response to exercise. No EKG changes were noticed. Nuclear perfusion imaging was normal. She is returning for follow-up. She recently was in the ER for hyponatremia. She was advised to hydrate herself with some Gatorade. She has been drinking Gatorade. She continues to have some fatigue and shortness of breath. She is feeling the symptoms are stable and not getting worse. No chest discomfort as before. 04/29/2023: She returns for follow-up. She has no chest pain or shortness of breath. She has been experiencing some dryness in her throat after taking statins. She also has reflux symptoms. She is saying that she has not been using atorvastatin regularly and is using it up to 2 times a week. She is following with GI and has been started on Imuran for chronic autoimmune hepatitis. [facility] Medical History Cirrhosis Antiphospholipid antibody syndrome Leg pain, right Abdominal bloating Arthritis Lupus POOL (dyspnea on exertion) Gallstones Cirrhosis Nonalcoholic steatohepatitis (SHARMA) Autoimmune hepatitis High blood pressure Fibromyalgia Diabetes Surgical History History of heart artery stent Hx of cholecystectomy Hx of endoscopy History of colonoscopy History of shoulder surgery History of cataract surgery (2010) History of repair of right rotator cuff (08/2011) History of cervical discectomy (07/2009) History of carpal tunnel release Family History Father History of diabetes mellitus, type II History of hypertension History of heart bypass surgery Mother History of diabetes mellitus, type II Brother History of gout Paternal Uncle Cancer Paternal Aunt Cancer Social History Household Members: None Housing: Apartment Are you a primary administrator health care facility to a significant other at home: No 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 have visiting nurse or 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) Alcohol intake: never Patient Tobacco Use Status: Never used Tobacco service: No Current occupational status: disabled Review of Systems Const Reports chills, Reports fatigue, Reports fever(s), Reports frequent falls, Reports weakness, Reports weight gain and Reports weight loss ENT Reports dizziness Card Reports chest pain, Reports leg edema, Reports lightheadedness, Reports palpitations, Reports dyspnea and Reports dyspnea on exertion Resp Reports cough, Reports dyspnea and Reports dyspnea on exertion GI Reports hematochezia Musc Reports abnormal gait, Reports muscle weakness, Reports numbness, Reports radiating pain into limb and Reports tingling Neuro Reports abnormal gait, Reports dizziness, Reports frequent falls, Reports numbness, Reports tingling and Reports weakness Endo Reports fatigue and Reports palpitations Physical Exam Vital Signs: Last Vital Signs Pulse 78 04/29/23 13:10 BP 140/58 H 04/29/23 13:10 BMI result Body Mass Index 26.1 GENERAL APPEARANCE: in no acute distress, pleasant. NECK: no carotid bruit, no jugular venous distention. SKIN: no suspicious lesions, warm and dry. HEART: no murmurs, regular rate and rhythm. LUNGS: clear to auscultation bilaterally. ABDOMEN: soft, nontender. EXTREMITIES: no edema. PERIPHERAL PULSES: equal. NEUROLOGIC: No gross deficits, AAO X 3 Assessment & Plan Assessment & Plan (1) Stable angina: Code(s): I20.8 - Other forms of angina pectoris Plan 62-year-old female who is here for follow-up. She has background of coronary disease with previous PCI. She has stable angina. She is taking aspirin currently and has stop taking Plavix. I think is reasonable to continue aspirin monotherapy currently. Blood pressure control is good. Manual blood pressure was 130/70. In terms of statin use, I have advised her to use it regularly. Currently she is getting a lot of reflux symptoms and I do not know whether that is the reason she is referring some issues to word statins. She is taking it 2 to 3 times a week and will continue that. As her reflux symptoms improved then she will resume the atorvastatin daily. I explained to her that this is a required medication. Follow-up with us in few months. Thank you for allowing me to participate in the care of your patient. Please feel free to contact me if you have any questions. Medications: Discontinued clopidogrel (Plavix) Discontinued Reason: None 75 mg PO DAILY 90 tabs 3RF Coding Level of Care Code Est Pt Level 4 (12567) Diagnoses Stable angina I20.8
[2023-04-29 13:10] VITALS: BP 140/58; PULSE 78; BMI 26.1
== END 2023-04-29 13:41 | disposition home or self-care (01) ==
PROVIDERS: PCP Internal Medicine; Visit Provider Internal Medicine Cardiovascular Disease
DX: I20.8 Other forms of angina pectoris (principal)
CPT/HCPCS: 99214

== ENCOUNTER → 2023-04-29 12:52 | Outpatient (BNVA) | payer MEDICARE, MEDICAID, SELFPAY ==
[2022-03-27 09:43] VITALS: BP 128/60; BMI 27.1
== END ==
PROVIDERS: PCP Internal Medicine; Visit Provider Internal Medicine Cardiovascular Disease
DX: I20.89 Other forms of angina pectoris (principal)
CPT/HCPCS: 99212

== ENCOUNTER 2023-05-17 11:42 | Outpatient (REF) | payer MEDICARE, MEDICAID, SELFPAY ==
[2022-03-27 09:43] VITALS: BP 128/60; BMI 27.1
[2023-05-17 13:09] LABS: Alanine Aminotransferase 32 U/L (0-31); Alkaline Phosphatase 157 U/L (39-117); Anion Gap 11 (12-20); Aspartate Amino Transferase 52 U/L (5-31); Bilirubin Total 0.5 mg/dL (0.0-1.0); Blood Urea Nitrogen 9 mg/dL (9-16); Calcium 9.7 mg/dL (8.4-10.2); Carbon Dioxide 24 mmol/L (22-29); Chloride 103 mmol/L (96-108); Estimated Glomerular Filt Rate > 60; Glucose Random 152 mg/dL (60-115); Potassium 4.2 mmol/L (3.3-5.1); Sodium 134 mmol/L (135-145); Total Protein 9.8 g/dL (6.5-8.0)
== END 2023-05-17 11:43 | disposition home or self-care (01) ==
LOC: HO.LAB 11:42
PROVIDERS: PCP Internal Medicine; Visit Provider Internal Medicine Gastroenterology
DX: Z13.89 Encounter for screening for other disorder (principal)
CPT/HCPCS: 36415; 80053

== ENCOUNTER 2023-05-22 13:31 | Outpatient (REF) | payer MEDICARE, MEDICAID, SELFPAY ==
[2022-03-27 09:43] VITALS: BP 128/60; BMI 27.1
[2023-05-22] MEDS: gadobutroL 7.5 ML VIAL IVPUSH (14:23)
== END 2023-05-22 13:32 | disposition home or self-care (01) ==
LOC: HO.MRI 13:31
PROVIDERS: PCP Internal Medicine; Visit Provider Internal Medicine Gastroenterology
DX: K74.60 Unspecified cirrhosis of liver (principal)
CPT/HCPCS: 74183; A9585

== ENCOUNTER 2023-05-31 09:20 | Outpatient (AMB) | payer MEDICARE, MEDICAID, SELFPAY ==
[2022-03-27 09:43] VITALS: BP 128/60; BMI 27.1
--- NOTE | 2023-05-31 09:23 | MHC.OFFVIS ---
Intake Vital Signs 05/31/23 09:33 Height 5 ft 2 in Weight 139 lb 1.787 oz BMI 25.4 BP 102/62 Blood Pressure Location Lt brachial Position Sitting Pulse 83 Pulse Source Pulse Oximeter Temp 97 F Temp Source Skin Pulse Oximetry (%) 98 Oxygen Delivery Method Room Air Intake Visit Reasons: FM Intake Note: Patient last seen 12/20/22, presents today for follow up on fibromyalgia. c/o left ring trigger finger, would like injection today. 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 In general she has been having widespread pains that continue in most areas. This has been more severe in the right knee secondary to miniscus tear . She had a corticosteroid injection in that knee a couple of years ago that was helpful. The injection was repeated by Orthopedics in September and January 2023 and it did not help her much. Pains are worse in the knee with weight-bearing activity such as walking. She notes occasional swelling. Other joints do not really swell that much. The Imuran 50 mg QD for her auto-immune hepatitis has been restarted, it was stopped for about 1 year and she did not understand why. She continues on ferrous sulfate because of the development of an iron deficiency anemia. She has had no significant skin rashes, oral ulcers, fevers, abdominal pain or chest pain. Today she has added concern for left 4th trigger finger and desires an injection. She continues to see GI for her liver, Hematology for MGUS and mild anemia with APLS, Ortho for right knee. Takes Oxycodone 5mg per day per PCP for Pain. History of Heart stent: [facility] Medical History (Updated 05/31/23 @ 11:04 by FRANCIS Carrera) Trigger finger, left ring finger Lupus Cirrhosis Antiphospholipid antibody syndrome Leg pain, right Abdominal bloating Arthritis Lupus POOL (dyspnea on exertion) Gallstones Cirrhosis Nonalcoholic steatohepatitis (SHARMA) Autoimmune hepatitis High blood pressure Fibromyalgia Diabetes Surgical History History of heart artery stent Hx of cholecystectomy Hx of endoscopy History of colonoscopy History of shoulder surgery History of cataract surgery (2010) History of repair of right rotator cuff (08/2011) History of cervical discectomy (07/2009) History of carpal tunnel release Family History Father History of diabetes mellitus, type II History of hypertension History of heart bypass surgery Mother History of diabetes mellitus, type II Brother History of gout Paternal Uncle Cancer Paternal Aunt Cancer Social History Household Members: None Housing: Apartment Are you a primary primary care nurse practitioner to a significant other at home: No 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 have 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 EYES no redness, eyelids normal EARS: External ear normal, canal clear and tympanic membrane normal. NOSE/SINUS: Airflow through both nares, no nasal discharge, no bleeding THROAT: Oral mucosa moist, no ulcerations NECK: No thyromegaly or masses, no adenopathy, trachea midline. HEART: Regulrar rhythm, S1-S2 heard, no murmurs, rubs or gallops. LUNG: Clear to percussion and auscultation ABD: Normal bowel sounds, no organomegaly, masses or tenderness. EXTREMITIES: No edema, no calf tenderness, normal peripheral pulses. SKIN: No inflammatory or neoplastic lesions. Normal color and turgor JOINT EXAM: ?? Cervical Spine:.? Full range of motion without pain; no tenderness. Thoracic Spine:.? No scoliosis.? No tenderness on palpation. Lumbar Spine:? Alignment normal.?? mild pain with extremes of range of motion with some paraspinal muscle tenderness. Chest Wall.? No tenderness, swelling, increased warmth or erythema. Hands:.? Normal pain-free range of motion with and mild tenderness across the PIP is and MCPs but there is no swelling, increased warmth or erythema.? I see no thenar atrophy, sensory loss. There is tenderness to left flexor tendon at the MCP joint. Patient describes triggering. Wrists:.? Normal pain-free range of motion without tenderness, swelling, increased warmth or erythema. Elbows:. Normal pain-free range of motion without tenderness, swelling, increased warmth or erythema. Shoulders:.?? Full range of motion with mild anterior discomfort.? Slight anterior tenderness without adenopathy, weakness, swelling, increased warmth or erythema. Hips:.? Full range of motion with some lumbar pain at the extremes of internal and external rotation.? No groin pain with motion. Hip bursa:.? No tenderness. Knees:.?? Right:? Mild pain with extremes of normal flexion extension.? There is mild to moderate patellofemoral crepitus and medial compartment tenderness without redness or effusion.? Left: Normal pain-free range of motion with? Mild patellofemoral crepitus but no effusion, tenderness, swelling, increased warmth or erythema.? Ankles:.? Normal pain-free range of motion without tenderness, swelling, increased warmth or erythema. Feet:.? Normal pain-free range of motion without tenderness, swelling, increased warmth or erythema. Tender points:?? mild tenderness to digital palpation at the occiput, trapezius, second rib, lateral epicondyle, knees, greater trochanter and gluteal area bilaterally. ? Office Procedures Joint Injection/Drain Joint Injection/Drain Primary Site: left trigger finger Prep: site was prepped using aseptic technique Injected: 20 mg of, Kenalog, with 0.25 mL of and 1% plain lidocaine Approach Used: anterior Procedure: The patient tolerated the procedure well Coding - Small Joint - Bicipital Groove Injection (Left 4th Trigger Finger) Procedure code (CPT) selection complete Results Reviewed Results Reviewed: EXAMINATION: 01/29/23 MR KNEE WITHOUT CONTRAST, RIGHT MR/MR knee RT wo con IMPRESSION: 1. New complex tear of the posterior horn of the medial meniscus with a high-grade radial component at the posterior root. 2. Mild tricompartmental osteoarthritis, not significantly changed as compared to prior. 3. Trace effusion and Steinberg's cyst. 4. Old healed MCL injury with associated ossification near the origin on the medial femoral epicondyle. Laboratory Tests 04/25/23 04/25/23 04/25/23 11:22 11:22 11:22 WBC 4.1 L Hgb 11.9 L MCH 26.6 L MCHC 30.2 L BUN Creatinine Estimated GFR AST 76 H ALT 45 H Alkaline Phosphatase 161 H Total Protein 10.1 H 05/17/23 05/17/23 05/17/23 12:01 12:01 12:01 WBC Hgb MCH MCHC BUN 9 Creatinine 0.79 Estimated GFR > 60 AST 52 H ALT 32 H Alkaline Phosphatase 157 H Total Protein 9.8 H Assessment & Plan Assessment & Plan (1) Chronic autoimmune hepatitis: Comment: liver biopsy 2018 showing inflammation and cirrhosis. Positive antismooth muscle antibody. Treated with azathioprine. Code(s): K75.4 - Autoimmune hepatitis (2) Lupus: Code(s): M32.9 - Systemic lupus erythematosus, unspecified (3) Trigger finger, left ring finger: Code(s): M65.342 - Trigger finger, left ring finger (4) Osteoarthritis of right knee: Code(s): M17.11 - Unilateral primary osteoarthritis, right knee Qualifiers: Osteoarthritis type: primary Qualified Code(s): M17.11 - Unilateral primary osteoarthritis, right knee (5) Tear of medial meniscus of right knee: Code(s): S83.241A - Other tear of medial meniscus, current injury, right knee, initial encounter Qualifiers: Tear current or old: current Encounter type: subsequent encounter Meniscus tear of knee type: complex Qualified Code(s): S83.231D - Complex tear of medial meniscus, current injury, right knee, subsequent encounter Plan #SLE/chronic autoimmune hepatitis: Ms. Garcia, a 62-year-old female, was seen in the office today for follow-up of SLE and osteoarthritis. Historically she has positive serology for HEAVEN 1:1280, double-stranded DNA, Crithidia, APLS antibodies, low C3, markedly elevated IgA, and positive anti smooth muscle antibodies. With regards to her lupus, I suspect with her being treated with Imuran for autoimmune hepatitis, this may have also served the lupus, keeping it managed. Except for overall body pains, which can be attributed to her fibromyalgia and OA, patient denies any symptoms of SLE to include month ulcers, rashes, kidney concerns, chronic joint swelling. It appears that she was given a drug holiday from Imuran due to progressive elevation in LFTs and alk-phos. These numbers continue to be elevated but the trend is now lower. Per patient, she recently did an MRI of her Abdomen for the liver, as GI is concerned for changes/findings noted during recent physical exam. The MRI was done on 05/22/2023 but has not yet been read. Giving the cirrhosis comorbidity, we have to be extra judicious with prescribing medication. I will obtain updated labs to check CBC, complements, inflammatory markers and urine for SLE disease activity. #Trigger finger: There is marked tenderness to left 4th flexor tendon at and PCP joint. I think it is reasonable to give her an injection today #Right knee pain/OA/Complex miniscus Tear: January 2023 MRI has identified new complex tear to her right knee. This has seemed to worsen since her last visit. Patient will continue to follow-up with orthopedic for injection as necessary. She is currently against doing surgery. I think the damage to the knee is progressing. She is currently limping due to the pain in her right knee. I encouraged patient to think about revisiting the idea of surgery. She says she has more thinks the think about for surgeries such as her neck. She will continue with diclofenac gel and oxycodone 5 mg p.o. per day as prescribed by primary care. A recheck in 4 months is recommended. I have spent 40 minutes reviewing chart and historical data, evaluating patient, and documenting. Orders: Orders Complement C4 Today K75.4 - Autoimmune hepatitis, M32.9 - Systemic lupus erythematosus, unspecified Comprehensive Met. Panel Today K75.4 - Autoimmune hepatitis, M32.9 - Systemic lupus erythematosus, unspecified Complete Blood Count Auto Diff Today K75.4 - Autoimmune hepatitis, M32.9 - Systemic lupus erythematosus, unspecified Erythrocyte Sedimentation Rate Today K75.4 - Autoimmune hepatitis, M32.9 - Systemic lupus erythematosus, unspecified Vitamin D 25-OH (D2 and D3) Today K75.4 - Autoimmune hepatitis, M32.9 - Systemic lupus erythematosus, unspecified UA and rflx microscopic Today M32.9 - Systemic lupus erythematosus, unspecified Complement C3 Today K75.4 - Autoimmune hepatitis, M32.9 - Systemic lupus erythematosus, unspecified C Reactive Protein Today K75.4 - Autoimmune hepatitis, M32.9 - Systemic lupus erythematosus, unspecified AMB Joint Injection/Aspiration Today M65.342 - Trigger finger, left ring finger Coding Level of Care Code Est Pt Level 4 (10139) Diagnoses Chronic autoimmune hepatitis K75.4 Lupus M32.9 Trigger finger, left ring finger M65.342 Primary osteoarthritis of right knee M17.11 Osteoarthritis type: primary Complex tear of medial meniscus of right knee as current injury, subsequent encounter S83.231D Tear current or old: current Encounter type: subsequent encounter Meniscus tear of knee type: complex CPT Codes Coding - 78961 - Small joint: 61548 - Small Joint ([id number]) Coding - Joint 1: - Bicipital Groove Injection ([id number])
[2023-05-31 09:33] VITALS: BP 102/62; PULSE 83; TEMP 36.1; O2SAT 98; BMI 25.4
== END 2023-05-31 10:10 | disposition home or self-care (01) ==
PROVIDERS: PCP Internal Medicine; Visit Provider Nurse Practitioner Family
DX: K75.4 Autoimmune hepatitis (principal); M32.9 Systemic lupus erythematosus, unspecified; M65.342 Trigger finger, left ring finger; M17.11 Unilateral primary osteoarthritis, right knee; S83.231D Complex tear of medial meniscus, current injury, right knee, subsequent encounter; M79.7 Fibromyalgia
CPT/HCPCS: 20550; 99214

== ENCOUNTER 2023-05-31 09:20 | Outpatient (REF) | payer MEDICARE, MEDICAID, SELFPAY ==
[2022-03-27 09:43] VITALS: BP 128/60; BMI 27.1
[2023-05-31 11:44] LABS: Erythrocyte Sedimentation Rate 69 MM/HR (0-20)
[2023-05-31 12:24] LABS: Alanine Aminotransferase 32 U/L (0-31); Albumin Level 4.2 g/dL (3.5-5.0); Alkaline Phosphatase 172 U/L (39-117); Anion Gap 14 (12-20); Aspartate Amino Transferase 58 U/L (5-31); Bilirubin Total 0.4 mg/dL (0.0-1.0); Blood Urea Nitrogen 9 mg/dL (9-16); C Reactive Protein 1.03 mg/dL (< or = 0.50); Calcium 9.9 mg/dL (8.4-10.2); Carbon Dioxide 27 mmol/L (22-29); Chloride 99 mmol/L (96-108); Estimated Glomerular Filt Rate > 60; Glucose Random 170 mg/dL (60-115); Sodium 136 mmol/L (135-145); Total Protein 10.2 g/dL (6.5-8.0)
[2023-06-03 09:58] LABS: Complement C3 171 mg/dL (83-193)
[2023-06-05 12:53] LABS: Vitamin D 25-OH, D2 <4 ng/mL; Vitamin D 25-OH, D3 31 ng/mL; Vitamin D 25-OH, Total 31 ng/mL (30-100)
== END 2023-05-31 09:21 | disposition home or self-care (01) ==
LOC: HO.LAB 09:20
PROVIDERS: PCP Internal Medicine; Visit Provider Nurse Practitioner Family
DX: M79.7 Fibromyalgia (principal); K75.4 Autoimmune hepatitis; M32.9 Systemic lupus erythematosus, unspecified; M65.342 Trigger finger, left ring finger; M17.11 Unilateral primary osteoarthritis, right knee; S83.231D Complex tear of medial meniscus, current injury, right knee, subsequent encounter
CPT/HCPCS: 20550; 36415; 80053; 81001; 81003; 82306; 85025; 85652; 86140; 86160; 99212

== ENCOUNTER 2023-06-03 13:28 | Outpatient (AMB) | payer MEDICARE, MEDICAID, SELFPAY ==
[2022-03-27 09:43] VITALS: BP 128/60; BMI 27.1
--- NOTE | 2023-06-03 13:34 | MHC.OFFVIS ---
Intake Vital Signs 06/03/23 13:36 Height 5 ft 2 in Weight 138 lb 14.259 oz BMI 25.4 BP 109/52 L Blood Pressure Location Lt brachial Position Sitting Pulse 86 Intake Visit Reasons: r/s from 04/22 Intake Note: Radha presents in the office as a follow up CC: She states that she does not have issues swallowing but she feels like there is something stuck in her throat and she needs to keep clearing out her throat. She is still having issues with constipation. She also had an MRI done that she would like to results to. 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 she was diagnosed with AIH and had been on imuran for 2 yrs (50 mg) ? but was then changed to 6 tabs MTX weekly and folic acid daily, after imuran stopped but this was recommenced and the MTX stopped due to SE and rising LFT ? she was dx based on lab work per her report ? she had liver bx ordered by her ID specialist (she was seeing for assessment of hep c but she doesn;t have it) ? she had pain since liver bx (02/2019) but does admit maybe it was there before ? no vomiting but occ nausea ? sometimes has constipation, which exacerbates her abdo pain mentioned above--stool was hard, and she has to push ? appetite is not so good, can't say why ? weight was going down ? she had been having constipation, on oxycodone 10 mg daily ? on prednisone for lupus ? she was given movantik for opiate induced constipation and pentoxyfilin for possible SHARMA ? she was referred to Dr Desai for gallstones causing abdo pain, and had cholecystectomy 05/2020 h pylori f/u testing has been negative ?? ? TESTS: ? she has abn AST/ALT on and off for last several years on review of [facility] ? cbc 02/2019--normal ? LFT: 12/2018--normal, LFT 06/25-2019 mild AST, ALT elevation ? LFT: 09/2019--AST36, ALT 42, alk phos--103, bili 0.4 ? LFT- 11/2019- bili-nml, AST-37, ALT-39, alk phos- 92 ? LFT 12/2019-- AST-42,ALT,40, GGT 109, alk phos--nml, bili 0.6 ? HEAVEN 1:1280 ? ds DNA--pos ? ? ? LFT- 04/19/2020--AST94, ALT 87, alk phos 148, bili 0.5 LFT 08/2020--nml, protein high, Ig levels high, SPEP neg LFT 12/16-- bili 5, AST 96, ALT 239 ( Imuran had been stopped due to v high levels of 6 TG and ^ MMP -->58605) vitamin A level had been low--improved with replacement ?BIOPSY: ? liver bx with grade 1, stage 4 cirrhosis, mixed macro and microvesicular steatosis, and background steatohepatitis ? ? ? IMAGING: MRI 05/18-- adenitis, cirrhosis, no mass lesions, few LNs Upper GI series: moderate GERD< nml stomach and duodenum US 11/2021- cirrhosis, no mass GES- 2021- nml EGD/colonoscopy- 04/2021-- esophagitis, gastritis, h pylori noted, x 1Ta removed, MRI 03/2021-- nodular liver, venous collaterals, MRI 08/2020--stable LN, liver with borderline steatosis, no mass lesions MRI 05/2020--upper abdo LN--stable, cirrhosis of liver noted CT 12/2019--liver calcifications, retroperitoneal LNs, gallstones ? u/s 10/2019--gallstones, adenomyomatosis, F3-4 elastography ? u/s 11/2018--coarse liver, no masses, ? CT 2018--mildly enalrged LN, hepatic granulomas, central mesenteric stranding ? EGD 04/2019--reflux, no varices ? INTERIM: she has issues with gas she is requesting glycerna again she is depressed, great grand child she has poor appetite has early fullness she denies nausea, just some mild sputum and congestion she is taking oxycodone every few days at least as before she went back on imuran 50 mg one month ago LFT RECHECKED TODAY, MILD ELEVATION of AST, ALT< alk phos--consistent with prior results EXAM: GENERAL: The patient is well developed and nontoxic. VITAL SIGNS:see workflow HEENT: Nonicteric sclerae, PERRLA, EOMI. Oropharynx clear. Moist mucous membranes. Conjunctivae appear well perfused. No thyroid mass. CHEST: Chest wall is nontender. HEART: Regular rate and rhythm without murmurs. LUNGS: Clear to auscultation bilaterally. ABDOMEN: Soft, positive bowel sounds, mild tender RUQ, no organomegaly,? lipoma felt SKIN: No rash, no excessive bruising, petechiae, or purpura. NEUROLOGIC: Cranial nerves II-XII intact without motor/sensory deficit. Assessments ? 1. Cirrhosis of liver-suspected from combination of AIH and SHARMA, imuran stopped due to high levels, now restarted at 50 mg, 2. Gallstones AND ADENOMYOMATOSIS, s/p cholecystectomy by Dr Desai 3. constipation-opiate related with bloating ? PLAN: 1/ get TPMT levels and metabolites 2/ she already sees councillor for her depression 3/ US abdomen for HCC screening in 6 month 4/ cont imuran [facility] Medical History (Updated 06/03/23 @ 14:21 by Jus Liu MD) Trigger finger, left ring finger Lupus Cirrhosis Antiphospholipid antibody syndrome Leg pain, right Abdominal bloating Arthritis Lupus POOL (dyspnea on exertion) Gallstones Cirrhosis Nonalcoholic steatohepatitis (SHARMA) Autoimmune hepatitis High blood pressure Fibromyalgia Diabetes Surgical History History of heart artery stent Hx of cholecystectomy Hx of endoscopy History of colonoscopy History of shoulder surgery History of cataract surgery (2010) History of repair of right rotator cuff (08/2011) History of cervical discectomy (07/2009) History of carpal tunnel release Family History Father History of diabetes mellitus, type II History of hypertension History of heart bypass surgery Mother History of diabetes mellitus, type II Brother History of gout Paternal Uncle Cancer Paternal Aunt Cancer Social History Household Members: None Housing: Apartment Are you a primary home care scheduler to a significant other at home: No 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 Positive antismooth muscle antibody. Treated with azathioprine. Code(s): K75.4 - Autoimmune hepatitis Plan: PLAN: 1/ get TPMT levels and metabolites 2/ she already sees councillor for her depression 3/ US abdomen for HCC screening in 6 month 4/ cont imuran Orders: Orders Comprehensive Met. Panel Today K75.4 - Autoimmune hepatitis, K75.81 - Nonalcoholic steatohepatitis (SHARMA) [employer] TPMT Enzyme Today K74.60 - Unspecified cirrhosis of liver, K75.4 - Autoimmune hepatitis Complete Blood Count Auto Diff Today K75.4 - Autoimmune hepatitis Medications: New nut.tx.gluc intol,lf,soy-fiber 0.08-1.5 gram-kcal/mL (Glucerna 1.5 Shaheen) 1 ea PO BID 8,000 mL 3RF Coding Level of Care Code Est Pt Level 4 (73583) Diagnoses Cirrhosis K74.60 Chronic autoimmune hepatitis K75.4
[2023-06-03 13:36] VITALS: BP 109/52; PULSE 86; BMI 25.4
== END 2023-06-03 14:21 | disposition home or self-care (01) ==
PROVIDERS: PCP Internal Medicine; Visit Provider Internal Medicine Gastroenterology
DX: K74.60 Unspecified cirrhosis of liver (principal); K75.4 Autoimmune hepatitis
CPT/HCPCS: 99214

== ENCOUNTER → 2023-06-03 13:28 | Outpatient (BNVA) | payer MEDICARE, MEDICAID, SELFPAY ==
[2022-03-27 09:43] VITALS: BP 128/60; BMI 27.1
== END ==
PROVIDERS: PCP Internal Medicine; Visit Provider Internal Medicine Gastroenterology
DX: K74.60 Unspecified cirrhosis of liver (principal); K75.4 Autoimmune hepatitis
CPT/HCPCS: 99212

== ENCOUNTER 2023-07-01 11:45 | Outpatient (REF) | payer MEDICARE, MEDICAID, SELFPAY ==
[2022-03-27 09:43] VITALS: BP 128/60; BMI 27.1
[2023-07-01 11:57] LABS: MANUAL DIFF FLAG NO
[2023-07-01 12:18] LABS: Basophils Percent Auto 0.8 % (0-2); Eosinophils Absolute Auto 0.1 X10*3/uL (0.0-0.4); Eosinophils Percent Auto 2.7 % (0-4); Hematocrit 38.9 % (37.0-47.0); Hemoglobin 12.2 g/dl (12.0-16.0); Imm Gran Abs Auto 0.02 X10*3/uL (0.00-0.03); Imm Gran Pct Auto 0.4 % (0.0-0.4); Lymphocytes Absolute Auto 1.3 X10*3/uL (1.2-4.9); Lymphocytes Percent Auto 26.8 % (20-40); Mean Corpuscular HGB Conc 31.4 g/dl (31.0-35.0); Mean Corpuscular Hemoglobin 27.4 pg (27.0-33.0); Mean Corpuscular Volume 87.2 fL (80.0-98.0); Mean Platelet Volume 9.9 fL (9.4-12.3); Monocytes Absolute Auto 0.4 X10*3/uL (0.1-1.2); Neutrophils Absolute Auto 2.9 x10*3/uL (2.0-8.3); Neutrophils Percent Auto 60.3 % (45-73); Platelet Count 198 X10*3/uL (160-400); Red Blood Count 4.46 X10*6/uL (4.20-5.50); Red Cell Distribution Width 15.3 % (11.0-16.0); White Blood Count 4.8 X10*3/uL (4.8-10.8)
[2023-07-01 12:51] LABS: Alanine Aminotransferase 37 U/L (0-31); Alkaline Phosphatase 190 U/L (39-117); Anion Gap 11 (12-20); Aspartate Amino Transferase 61 U/L (5-31); Bilirubin Total 0.3 mg/dL (0.0-1.0); Blood Urea Nitrogen 13 mg/dL (9-16); Calcium 9.8 mg/dL (8.4-10.2); Carbon Dioxide 27 mmol/L (22-29); Chloride 103 mmol/L (96-108); Estimated Glomerular Filt Rate > 60; Glucose Random 137 mg/dL (60-115); Potassium 4.3 mmol/L (3.3-5.1); Sodium 137 mmol/L (135-145); Total Protein 9.9 g/dL (6.5-8.0)
== END 2023-07-01 11:46 | disposition home or self-care (01) ==
LOC: HO.LAB 11:45
PROVIDERS: PCP Internal Medicine; Visit Provider Internal Medicine Gastroenterology
DX: K75.81 Nonalcoholic steatohepatitis (NASH) (principal); K75.4 Autoimmune hepatitis; K74.60 Unspecified cirrhosis of liver
CPT/HCPCS: 36415; 80053; 80299; 85025

== ENCOUNTER 2023-08-06 10:44 | Outpatient (REF) | payer MEDICARE, MEDICAID, SELFPAY ==
[2022-03-27 09:43] VITALS: BP 128/60; BMI 27.1
[2023-08-06 11:03] LABS: MANUAL DIFF FLAG NO
[2023-08-06 11:44] LABS: Basophils Percent Auto 0.7 % (0-2); Eosinophils Absolute Auto 0.1 X10*3/uL (0.0-0.4); Eosinophils Percent Auto 2.5 % (0-4); Imm Gran Abs Auto 0.02 X10*3/uL (0.00-0.03); Imm Gran Pct Auto 0.5 % (0.0-0.4); Lymphocytes Percent Auto 22.2 % (20-40); Mean Corpuscular HGB Conc 31.6 g/dl (31.0-35.0); Mean Corpuscular Hemoglobin 27.4 pg (27.0-33.0); Mean Corpuscular Volume 86.8 fL (80.0-98.0); Mean Platelet Volume 10.2 fL (9.4-12.3); Monocytes Absolute Auto 0.6 X10*3/uL (0.1-1.2); Monocytes Percent Auto 12.7 % (2-11); Neutrophils Absolute Auto 2.7 x10*3/uL (2.0-8.3); Neutrophils Percent Auto 61.4 % (45-73); Platelet Count 189 X10*3/uL (160-400); Red Blood Count 4.38 X10*6/uL (4.20-5.50); Red Cell Distribution Width 14.7 % (11.0-16.0); White Blood Count 4.3 X10*3/uL (4.8-10.8)
[2023-08-06 12:10] LABS: Prothrombin Time 12.2 SEC (11.1-13.3)
[2023-08-06 12:18] LABS: Alanine Aminotransferase 30 U/L (0-31); Albumin Level 3.8 g/dL (3.5-5.0); Alkaline Phosphatase 173 U/L (39-117); Anion Gap 10 (12-20); Aspartate Amino Transferase 56 U/L (5-31); Bilirubin Total 0.5 mg/dL (0.0-1.0); Blood Urea Nitrogen 8 mg/dL (9-16); Calcium 9.4 mg/dL (8.4-10.2); Carbon Dioxide 27 mmol/L (22-29); Chloride 104 mmol/L (96-108); Estimated Glomerular Filt Rate > 60; Glucose Random 157 mg/dL (60-115); Potassium 4.1 mmol/L (3.3-5.1); Sodium 137 mmol/L (135-145); Total Protein 9.7 g/dL (6.5-8.0)
== END 2023-08-06 10:45 | disposition home or self-care (01) ==
LOC: HO.LAB 10:44
PROVIDERS: PCP Internal Medicine; Visit Provider Internal Medicine Gastroenterology
DX: K75.81 Nonalcoholic steatohepatitis (NASH) (principal); M32.9 Systemic lupus erythematosus, unspecified; K75.4 Autoimmune hepatitis
CPT/HCPCS: 36415; 80053; 85025; 85610

== ENCOUNTER 2023-08-29 08:04 | Outpatient (REF) | payer MEDICARE, MEDICAID, SELFPAY ==
[2022-03-27 09:43] VITALS: BP 128/60; BMI 27.1
[2023-08-29 08:14] LABS: MANUAL DIFF FLAG NO
[2023-08-29 08:48] LABS: Basophils Absolute Auto 0.1 X10*3/uL (0.0-0.2); Eosinophils Absolute Auto 0.2 X10*3/uL (0.0-0.4); Eosinophils Percent Auto 2.5 % (0-4); Hemoglobin 11.6 g/dl (12.0-16.0); Imm Gran Abs Auto 0.02 X10*3/uL (0.00-0.03); Imm Gran Pct Auto 0.3 % (0.0-0.4); Lymphocytes Absolute Auto 1.3 X10*3/uL (1.2-4.9); Lymphocytes Percent Auto 21.2 % (20-40); Mean Corpuscular HGB Conc 30.5 g/dl (31.0-35.0); Mean Corpuscular Volume 88.6 fL (80.0-98.0); Mean Platelet Volume 9.9 fL (9.4-12.3); Monocytes Absolute Auto 0.6 X10*3/uL (0.1-1.2); Monocytes Percent Auto 10.8 % (2-11); Neutrophils Absolute Auto 3.8 x10*3/uL (2.0-8.3); Neutrophils Percent Auto 64.2 % (45-73); Platelet Count 201 X10*3/uL (160-400); Red Blood Count 4.29 X10*6/uL (4.20-5.50); Red Cell Distribution Width 15.2 % (11.0-16.0); White Blood Count 5.9 X10*3/uL (4.8-10.8)
[2023-08-29 09:14] LABS: Alanine Aminotransferase 33 U/L (0-31); Albumin Level 3.8 g/dL (3.5-5.0); Alkaline Phosphatase 212 U/L (39-117); Anion Gap 12 (12-20); Aspartate Amino Transferase 60 U/L (5-31); Bilirubin Total 0.4 mg/dL (0.0-1.0); Blood Urea Nitrogen 10 mg/dL (9-16); Calcium 9.5 mg/dL (8.4-10.2); Carbon Dioxide 25 mmol/L (22-29); Chloride 104 mmol/L (96-108); Estimated Glomerular Filt Rate > 60; Glucose Random 152 mg/dL (60-115); Potassium 4.4 mmol/L (3.3-5.1); Sodium 137 mmol/L (135-145); Total Protein 9.6 g/dL (6.5-8.0)
== END 2023-08-29 08:05 | disposition home or self-care (01) ==
LOC: HO.LAB 08:04
PROVIDERS: PCP Internal Medicine; Visit Provider Internal Medicine Gastroenterology
DX: K75.81 Nonalcoholic steatohepatitis (NASH) (principal); M32.9 Systemic lupus erythematosus, unspecified
CPT/HCPCS: 36415; 80053; 85025

== ENCOUNTER 2023-09-23 11:18 | Outpatient (REF) | payer MEDICARE, MEDICAID, SELFPAY ==
[2022-03-27 09:43] VITALS: BP 128/60; BMI 27.1
[2023-09-23 11:38] LABS: MANUAL DIFF FLAG NO
[2023-09-23 12:24] LABS: Basophils Percent Auto 0.9 % (0-2); Eosinophils Absolute Auto 0.1 X10*3/uL (0.0-0.4); Eosinophils Percent Auto 2.1 % (0-4); Hematocrit 36.6 % (37.0-47.0); Hemoglobin 11.3 g/dl (12.0-16.0); Imm Gran Abs Auto 0.02 X10*3/uL (0.00-0.03); Imm Gran Pct Auto 0.4 % (0.0-0.4); Lymphocytes Absolute Auto 1.1 X10*3/uL (1.2-4.9); Lymphocytes Percent Auto 22.6 % (20-40); Mean Corpuscular HGB Conc 30.9 g/dl (31.0-35.0); Mean Corpuscular Hemoglobin 27.1 pg (27.0-33.0); Mean Corpuscular Volume 87.8 fL (80.0-98.0); Mean Platelet Volume 10.4 fL (9.4-12.3); Monocytes Absolute Auto 0.5 X10*3/uL (0.1-1.2); Monocytes Percent Auto 11.5 % (2-11); Neutrophils Absolute Auto 2.9 x10*3/uL (2.0-8.3); Neutrophils Percent Auto 62.5 % (45-73); Platelet Count 218 X10*3/uL (160-400); Red Blood Count 4.17 X10*6/uL (4.20-5.50); Red Cell Distribution Width 15.9 % (11.0-16.0); White Blood Count 4.7 X10*3/uL (4.8-10.8)
[2023-09-23 13:02] LABS: Alanine Aminotransferase 31 U/L (0-31); Albumin Level 3.7 g/dL (3.5-5.0); Alkaline Phosphatase 199 U/L (39-117); Anion Gap 12 (12-20); Aspartate Amino Transferase 54 U/L (5-31); Bilirubin Total 0.4 mg/dL (0.0-1.0); Blood Urea Nitrogen 12 mg/dL (9-16); Calcium 9.4 mg/dL (8.4-10.2); Carbon Dioxide 27 mmol/L (22-29); Chloride 101 mmol/L (96-108); Estimated Glomerular Filt Rate > 60; Glucose Random 130 mg/dL (60-115); Potassium 4.4 mmol/L (3.3-5.1); Sodium 136 mmol/L (135-145); Total Protein 9.7 g/dL (6.5-8.0)
== END 2023-09-23 11:19 | disposition home or self-care (01) ==
LOC: HO.LAB 11:18
PROVIDERS: PCP Internal Medicine; Visit Provider Internal Medicine Gastroenterology
DX: K75.81 Nonalcoholic steatohepatitis (NASH) (principal); K75.4 Autoimmune hepatitis
CPT/HCPCS: 36415; 80053; 85025

== ENCOUNTER 2023-10-02 10:22 | Outpatient (AMB) | payer MEDICARE, MEDICAID, SELFPAY ==
[2022-03-27 09:43] VITALS: BP 128/60; BMI 27.1
--- NOTE | 2023-10-02 11:14 | A.OFFVIS_ITS ---
Vital Signs 10/02/23 11:15 Height 5 ft 2 in Weight 135 lb 5.821 oz BMI 24.8 BP 124/70 Blood Pressure Location Rt brachial Position Sitting Pulse 80 Pulse Source Pulse Oximeter Pulse Oximetry (%) 98 Oxygen Delivery Method Room Air Intake Visit Reasons: Lupus Intake Note: Patient last seen on 05/31/23, presents to office today for lupus follow up and test results. Patient reports no concerns today. 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 Chong 63yoF returns for evaluation of her fibromyalgia, lupus and osteoarthritis. In general she has been having widespread pains that continue in most areas. This has been more severe in the right knee secondary to miniscus tear. The injection to the left fourth trigger finger did help and there is no concern for that today. She continues on Imuran 50 mg QD for her auto-immune hepatitis. She continues on ferrous sulfate because of the development of an iron deficiency anemia. She has had no significant skin rashes, oral ulcers, fevers, abdominal pain or chest pain since last vist. She continues to see GI for her liver, Hematology for MGUS and mild anemia with APLS, Ortho for right knee. May 2023 [place]: The patient returns for evaluation of her fibromyalgia, lupus and osteoarthritis. In general she has been having widespread pains that continue in most areas. This has been more severe in the right knee secondary to miniscus tear . She had a corticosteroid injection in that knee a couple of years ago that was helpful. The injection was repeated by Orthopedics in September and January 2023 and it did not help her much. Pains are worse in the knee with weight-bearing activity such as walking. She notes occasional swelling. Other joints do not really swell that much. The Imuran 50 mg QD for her auto-immune hepatitis has been restarted, it was stopped for about 1 year and she did not understand why. She continues on ferrous sulfate because of the development of an iron deficiency anemia. She has had no significant skin rashes, oral ulcers, fevers, abdominal pain or chest pain. Today she has added concern for left 4th trigger finger and desires an injection. She continues to see GI for her liver, Hematology for MGUS and mild anemia with APLS, Ortho for right knee. Takes Oxycodone 5mg per day per PCP for Pain. History of Heart stent: [facility] Medical History (Updated 06/13/23 @ 18:09 by Pat Pinto MD) Trigger finger, left ring finger Lupus Cirrhosis Antiphospholipid antibody syndrome Leg pain, right Abdominal bloating Arthritis Lupus POOL (dyspnea on exertion) Gallstones Cirrhosis Nonalcoholic steatohepatitis (SHARMA) Autoimmune hepatitis High blood pressure Fibromyalgia Diabetes Surgical History History of heart artery stent Hx of cholecystectomy Hx of endoscopy History of colonoscopy History of shoulder surgery History of cataract surgery (2010) History of repair of right rotator cuff (08/2011) History of cervical discectomy (07/2009) History of carpal tunnel release Family History Father History of diabetes mellitus, type II History of hypertension History of heart bypass surgery Mother History of diabetes mellitus, type II Brother History of gout Paternal Uncle Cancer Paternal Aunt Cancer Social History Household Members: None Housing: Apartment Are you a primary medicare specialist to a significant other at home: No 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 EYES no redness, eyelids normal EARS: External ear normal, canal clear and tympanic membrane normal. NOSE/SINUS: Airflow through both nares, no nasal discharge, no bleeding THROAT: Oral mucosa moist, no ulcerations NECK: No thyromegaly or masses, no adenopathy, trachea midline. HEART: Regulrar rhythm, S1-S2 heard, no murmurs, rubs or gallops. LUNG: Clear to percussion and auscultation ABD: Normal bowel sounds, no organomegaly, masses or tenderness. EXTREMITIES: No edema, no calf tenderness, normal peripheral pulses. SKIN: No inflammatory or neoplastic lesions. Normal color and turgor JOINT EXAM: ?? Cervical Spine:.? Full range of motion without pain; no tenderness. Thoracic Spine:.? No scoliosis.? No tenderness on palpation. Lumbar Spine:? Alignment normal.?? mild pain with extremes of range of motion with some paraspinal muscle tenderness. Chest Wall.? No tenderness, swelling, increased warmth or erythema. Hands:.? Normal pain-free range of motion with and very mild tenderness across the PIP is and MCPs but there is no swelling, increased warmth or erythema.? I see no thenar atrophy, sensory loss. There is no more tenderness to left flexor tendon at the MCP joint. Patient states no more triggering. Wrists:.? Normal pain-free range of motion without tenderness, swelling, increased warmth or erythema. Elbows:. Normal pain-free range of motion without tenderness, swelling, increased warmth or erythema. Shoulders:.?? Full range of motion with mild anterior discomfort.? Slight anterior tenderness without adenopathy, weakness, swelling, increased warmth or erythema. Hips:.? Full range of motion with some lumbar pain at the extremes of internal and external rotation.? No groin pain with motion. Hip bursa:.? No tenderness. Knees:.?? Right:? Mild pain with extremes of normal flexion extension.? There is mild to moderate patellofemoral crepitus and medial compartment tenderness without redness or effusion.? Left: Normal pain-free range of motion with? Mild patellofemoral crepitus but no effusion, tenderness, swelling, increased warmth or erythema.? Ankles:.? Normal pain-free range of motion without tenderness, swelling, inc reased warmth or erythema. Feet:.? Normal pain-free range of motion without tenderness, swelling, increased warmth or erythema. Tender points:?? mild tenderness to digital palpation at the occiput, trapezius, second rib, lateral epicondyle, knees, greater trochanter and gluteal area bilaterally. ? Results Reviewed Results Reviewed: Laboratory Tests 09/23/23 11:36 WBC 4.7 L RBC 4.17 L Hgb 11.3 L Hct 36.6 L Creatinine 0.71 AST 54 H ALT 31 Alkaline Phosphatase 199 H Assessment & Plan Assessment & Plan (1) Chronic autoimmune hepatitis: Comment: liver biopsy 2018 showing inflammation and cirrhosis. Positive antismooth muscle antibody. Treated with azathioprine. Code(s): K75.4 - Autoimmune hepatitis Category: Medical (2) Lupus: Code(s): M32.9 - Systemic lupus erythematosus, unspecified Category: Medical (3) Osteoarthritis of right knee: Code(s): M17.11 - Unilateral primary osteoarthritis, right knee Category: Medical Qualifiers: Osteoarthritis type: primary Qualified Code(s): M17.11 - Unilateral primary osteoarthritis, right knee (4) Tear of medial meniscus of right knee: Code(s): S83.241A - Other tear of medial meniscus, current injury, right knee, initial encounter Category: Medical Qualifiers: Encounter type: subsequent encounter Meniscus tear of knee type: complex Tear current or old: current Qualified Code(s): S83.231D - Complex tear of medial meniscus, current injury, right knee, subsequent encounter Plan #SLE/chronic autoimmune hepatitis: Ms. Garcia, a 62-year-old female, was seen in the office today for follow-up of SLE and osteoarthritis. Historically she has positive serology for HEAVEN 1:1280, double-stranded DNA, Crithidia, APLS antibodies, low C3, markedly elevated IgA, and positive anti smooth muscle antibodies. With regards to her lupus, I suspect with her being treated with Imuran for autoimmune hepatitis, this may have also served the lupus, keeping it managed. Patient denies any symptoms of SLE to include month ulcers, rashes, kidney concerns. Rheumatology has not been prescribing treatment for sometime now. FM/OA: Except for overall body pains, which can be attributed to her fibromyalgia and OA, she denies chronic joint swelling, redness and warmth. I will obtain updated labs to check CBC, complements, inflammatory markers and urine for SLE disease activity. #Right knee pain/Complex miniscus Tear: January 2023 MRI has identified new complex tear to her right knee. This has seemed to worsen since her last visit. Patient will continue to follow-up with orthopedic for injection as necessary. She is currently against doing surgery. I think the damage to the knee is progr essing. She is currently limping due to the pain in her right knee. I encouraged patient to think about revisiting the idea of surgery. She says she has more things the think about for surgeries such as her neck. She will continue with diclofenac gel and oxycodone 5 mg p.o. per day as prescribed by primary care. A recheck in 4 months is recommended. I have spent 20 minutes reviewing chart and historical data, evaluating patient, and documenting. Orders: Orders C Reactive Protein 10/02/23 M32.9 - Systemic lupus erythematosus, unspecified Complement C4 10/02/23 M32.9 - Systemic lupus erythematosus, unspecified Complement C3 10/02/23 M32.9 - Systemic lupus erythematosus, unspecified Anti DNA DS Antibody 10/02/23 M32.9 - Systemic lupus erythematosus, unspecified UA w Microscopic 10/02/23 M32.9 - Systemic lupus erythematosus, unspecified Erythrocyte Sedimentation Rate 10/02/23 M32.9 - Systemic lupus erythematosus, unspecified Coding Level of Care Code Est Pt Level 3 (60130) Complex EM visit Add On G2211 Diagnoses Chronic autoimmune hepatitis K75.4 Lupus M32.9 Primary osteoarthritis of right knee M17.11 Osteoarthritis type: primary Complex tear of medial meniscus of right knee as current injury, subsequent encounter S83.231D Encounter type: subsequent encounter Meniscus tear of knee type: complex Tear current or old: current
[2023-10-02 11:15] VITALS: BP 124/70; PULSE 80; O2SAT 98; BMI 24.8
== END 2023-10-02 12:20 | disposition home or self-care (01) ==
PROVIDERS: PCP Internal Medicine; Visit Provider Nurse Practitioner Family
DX: K75.4 Autoimmune hepatitis (principal); M32.9 Systemic lupus erythematosus, unspecified; M17.11 Unilateral primary osteoarthritis, right knee; S83.231D Complex tear of medial meniscus, current injury, right knee, subsequent encounter
CPT/HCPCS: 99213; G2211

== ENCOUNTER → 2023-10-02 10:22 | Outpatient (BNVA) | payer MEDICARE, MEDICAID, SELFPAY ==
[2022-03-27 09:43] VITALS: BP 128/60; BMI 27.1
== END ==
PROVIDERS: PCP Internal Medicine; Visit Provider Nurse Practitioner Family
DX: M32.9 Systemic lupus erythematosus, unspecified (principal); M17.11 Unilateral primary osteoarthritis, right knee; K75.4 Autoimmune hepatitis; S83.231D Complex tear of medial meniscus, current injury, right knee, subsequent encounter
CPT/HCPCS: 99212

== ENCOUNTER 2023-10-22 06:38 | Day surgery (SDC) | payer MEDICARE, MEDICAID, SELFPAY ==
[2022-03-27 09:43] VITALS: BP 128/60; BMI 27.1
--- NOTE | 2023-10-17 12:09 | HO.ANESPROP2 ---
Documented by User: Mireille Mccall NP 10/17/23 12:13 HPI - Anesthesia Eval Consult details Narrative: 63yo F for Upper Endoscopy with reflux waterbrash Cirrhosis [place]s [facility] [place] for [place] s/p stent 2021, stable angina. Last office visit 04/2023. OK for routine f/u. Anesthesia Pre-Procedure Meds Is the patient on any of the following meds?: SGLT2 Inhib PMFSH Active Problems Active Problems: All Active Problems GERD (gastroesophageal reflux disease) (Acute) Trigger finger, left ring finger (Acute) Lupus (Acute) Lupus (Acute) Tear of medial meniscus of right knee (Acute) Fibromyalgia (Acute) Dysphagia (Acute) Hyperlipidemia (Acute) S/P cardiac cath (Acute) S/P coronary artery stent placement (Acute) Osteoarthritis of right knee (Acute) Chronic autoimmune hepatitis (Acute) Coronary arteriosclerosis (Acute) Antiphospholipid antibody positive (Acute) Cirrhosis (Acute) H. pylori infection (Acute) POOL (dyspnea on exertion) (Acute) Melena (Acute) Diabetes (Acute) Gallstones (Acute) Past Medical History Medical History Trigger finger, left ring finger Lupus Cirrhosis Antiphospholipid antibody syndrome Leg pain, right Abdominal bloating Arthritis Lupus POOL (dyspnea on exertion) Gallstones Cirrhosis Nonalcoholic steatohepatitis (SHARMA) Autoimmune hepatitis High blood pressure Fibromyalgia Diabetes Family History Family History Father History of diabetes mellitus, type II History of hypertension History of heart bypass surgery Mother History of diabetes mellitus, type II Brother History of gout Paternal Uncle Cancer Paternal Aunt Cancer Family history of problems with anesthesia: No Surgical History Surgical History History of heart artery stent Hx of cholecystectomy Hx of endoscopy History of colonoscopy History of shoulder surgery History of cataract surgery (2010) History of repair of right rotator cuff (08/2011) History of cervical discectomy (07/2009) History of carpal tunnel release History of Problems with Anesthesia: No Social History Social History Household Members: None Housing: Apartment Are you a primary primary care coordinator to a significant other at home: No 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 have 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) Alcohol intake: never Patient Tobacco Use Status: Never used Tobacco Are you DNR?: No Advance Directives: No Advance Directives Information Provided: Yes Nutrition Risks: No Nutritional Risk service: No Current occupational status: disabled Meds Allergies Allergy/AdvReac Type Severity Reaction Status Date / Time duloxetine [From CYMBALTA] Allergy Intermediate SHAKINESS Verified 10/22/23 07:06 Home Medications ?Medication ?Instructions ?Recorded ?Confirmed ?Last Taken ?Type glipizide 10 mg tablet 10 mg PO DAILY 05/17/20 10/22/23 Unknown History albuterol sulfate 90 mcg/actuation 90 mcg inhalation BID PRN 06/06/20 10/22/23 Unknown History aerosol inhaler Shortness Of Breath fluticasone propionate 50 50 mcg intranasal DAILY PRN Nasal 06/06/20 10/22/23 Unknown History mcg/actuation nasal Congestion spray,suspension loratadine 10 mg tablet 10 mg PO DAILY PRN Allergy Symptoms 06/07/20 10/22/23 Unknown History lorazepam 0.5 mg tablet 0.5 mg PO QID PRN Anxiety 06/07/20 10/22/23 Unknown History ondansetron 4 mg disintegrating 4 mg PO Q6-8H PRN Nausea 06/07/20 10/22/23 Unknown History tablet oxycodone 5 mg tablet 5 mg PO Q4-6H PRN Pain 06/07/20 10/22/23 Unknown History empagliflozin 25 mg tablet 25 mg PO DAILY 06/13/20 10/22/23 10/18/23 History (Jardiance) nortriptyline 10 mg PO DAILY PRN Insomnia 12/05/20 10/22/23 Unknown History atorvastatin 20 mg tablet 20 mg PO BEDTIME 04/09/22 10/22/23 Unknown History blood sugar diagnostic (FreeStyle #10 ea 02/25/23 10/22/23 Unknown History Lite Strips) cholecalciferol (vitamin D3) 25 25 mcg PO DAILY 02/25/23 10/22/23 Unknown History mcg (1,000 unit) tablet estradiol 0.01% (0.1 mg/gram) 0.01 appful vaginal DAILY 02/25/23 10/22/23 Unknown History vaginal cream lisinopril 2.5 mg tablet 2.5 mg PO DAILY 02/25/23 10/22/23 Unknown History metformin 500 mg tablet,extended 1,000 mg PO BID 02/25/23 10/22/23 Unknown History release 24 hr Exam Pertinent Lab Results Pertinent Lab Results: Laboratory Tests 09/23/23 11:36 WBC 4.7 L Hgb 11.3 L Hct 36.6 L Plt Count 218 Sodium 136 Potassium 4.4 Chloride 101 Carbon Dioxide 27 BUN 12 Creatinine 0.71 Narrative Narrative: EKG 2022 Vent. Rate : 090 BPM Atrial Rate : 090 BPM P-R Int : 160 ms QRS Dur : 070 ms QT Int : 348 ms P-R-T Axes : 050 002 031 degrees QTc Int : 425 ms Normal sinus rhythm Normal ECG When compared with ECG of 06-JAN-2022 12:47, Fusion complexes are no longer Present NM cardiolite stress test 2022 IMPRESSION: 1. Myocardial perfusion imaging study shows normal myocardial perfusion. 2. Gated LVEF is > 70% during stress and rest. 3. Transient ischemic dilatation not present. Assessment and Plan Assessment Anesthesia Assessment: Chart Reviewed Final Anesthetic Review Family History of Problems with Anesthesia: No History of Problems with Anesthesia: No Documented by User: Tan Doll MD 10/22/23 07:27 [facility] Past Medical History Medical History Trigger finger, left ring finger Lupus Cirrhosis Antiphospholipid antibody syndrome Leg pain, right Abdominal bloating Arthritis Lupus POOL (dyspnea on exertion) Gallstones Cirrhosis Nonalcoholic steatohepatitis (SHARMA) Autoimmune hepatitis High blood pressure Fibromyalgia Diabetes Family History Family History Father History of diabetes mellitus, type II History of hypertension History of heart bypass surgery Mother History of diabetes mellitus, type II Brother History of gout Paternal Uncle Cancer Paternal Aunt Cancer Surgical History Surgical History History of heart artery stent Hx of cholecystectomy Hx of endoscopy History of colonoscopy History of shoulder surgery History of cataract surgery (2010) History of repair of right rotator cuff (08/2011) History of cervical discectomy (07/2009) History of carpal tunnel release Social History Social History Household Members: None Housing: Apartment Are you a primary primary care coordinator to a significant other at home: No 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 have 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) Alcohol intake: never Patient Tobacco Use Status: Never used Tobacco Are you DNR?: No Advance Directives: No Advance Directives Information Provided: Yes Nutrition Risks: No Nutritional Risk service: No Current occupational status: disabled Meds Allergies Allergy/AdvReac Type Severity Reaction Status Date / Time duloxetine [From CYMBALTA] Allergy Intermediate SHAKINESS Verified 10/22/23 07:06 Home Medications ?Medication ?Instructions ?Recorded ?Confirmed ?Last Taken ?Type glipizide 10 mg tablet 10 mg PO DAILY 05/17/20 10/22/23 Unknown History albuterol sulfate 90 mcg/actuation 90 mcg inhalation BID PRN 06/06/20 10/22/23 Unknown History aerosol inhaler Shortness Of Breath fluticasone propionate 50 50 mcg intranasal DAILY PRN Nasal 06/06/20 10/22/23 Unknown History mcg/actuation nasal Congestion spray,suspension loratadine 10 mg tablet 10 mg PO DAILY PRN Allergy Symptoms 06/07/20 10/22/23 Unknown History lorazepam 0.5 mg tablet 0.5 mg PO QID PRN Anxiety 06/07/20 10/22/23 Unknown History ondansetron 4 mg disintegrating 4 mg PO Q6-8H PRN Nausea 06/07/20 10/22/23 Unknown History tablet oxycodone 5 mg tablet 5 mg PO Q4-6H PRN Pain 06/07/20 10/22/23 Unknown History empagliflozin 25 mg tablet 25 mg PO DAILY 06/13/20 10/22/23 10/18/23 History (Jardiance) nortriptyline 10 mg PO DAILY PRN Insomnia 12/05/20 10/22/23 Unknown History atorvastatin 20 mg tablet 20 mg PO BEDTIME 04/09/22 10/22/23 Unknown History blood sugar diagnostic (Alan #10 ea 02/25/23 10/22/23 Unknown History Lite Strips) cholecalciferol (vitamin D3) 25 25 mcg PO DAILY 02/25/23 10/22/23 Unknown History mcg (1,000 unit) tablet estradiol 0.01% (0.1 mg/gram) 0.01 appful vaginal DAILY 02/25/23 10/22/23 Unknown History vaginal cream lisinopril 2.5 mg tablet 2.5 mg PO DAILY 02/25/23 10/22/23 Unknown History metformin 500 mg tablet,extended 1,000 mg PO BID 02/25/23 10/22/23 Unknown History release 24 hr Exam Airway Mallampati Class: I TM Dist: >3cm Neck ROM: Full Partial: Upper Loose/Missing/Broken Teeth: No Heart: rrr Lungs: cta Assessment and Plan Assessment Anesthesia Assessment: Anesthesia Plan Discussed Final Anesthetic Review NPO: Yes ASA Class: III Final Preanesthetic Review: No Changes in Pt Med Stat, Meds/Allgs Chart Reviewed, Consent Obtained/Reviewed and Anes Risks/Benef Reviewed Patient Risk: Intermediate Procedure Risk: Intermediate Anesthetic Plan Anesthetic Plan: MAC: Disposition: Standard PACU
[2023-10-22 06:55] VITALS: BMI 24.7
[2023-10-22] MEDS: Lactated Ringers 1,000 ML 100 ML IVCONT (07:09)
[2023-10-22 07:24] VITALS: BP 131/56; PULSE 77; RESP 18; TEMP 36.6; O2SAT 98
[2023-10-22 07:24] LABS: Glucose, Whole Blood 178 mg/dL (60-115)
--- NOTE | 2023-10-22 07:44 | P.HPSUR_ITS ---
Pre-Procedural Eval Section A - 24 Hr Update-Section A only Date of Service: 10/22/23 Section B - Complete if H&P > 30 days Chief Complaint: Gastro-esophageal reflux disease without esophagit Relevant Family History (Specify if Yes): No Relevant Social History: None Present Medications: see Short Stay Collaborative assessment Medical History: Significant History (Trigger finger, left ring finger Lupus Cirrhosis Antiphospholipid antibody syndrome Leg pain, right Abdominal bloating Arthritis Lupus POOL (dyspnea on exertion) Gallstones Cirrhosis Nonalcoholic steatohepatitis (SHARMA) Autoimmune hepatitis High blood pressure Fibromyalgia Diabetes) History of Previous Operations: Relevant previous surgery/procedure and date(s) ( History of heart artery stent Hx of cholecystectomy Hx of endoscopy History of colonoscopy History of shoulder surgery History of cataract surgery (2010) History of repair of right rotator cuff (08/2011) History of cervical discectomy (07/2009) History of carpal tunnel release) Allergies: Allergies Allergy/AdvReac Type Severity Reaction Status Date / Time duloxetine [From CYMBALTA] Allergy Intermediate SHAKINESS Verified 10/22/23 07:06 Review of Systems Sugical H&P ROS: Negative: Constitution, Cardiovascular, Respiratory, Shon rological, Psychiatric, Hem-Onc, Allergic/Immunologic, Gastrointestinal, Genitourinary, Musculoskeletal, Integumentary, Endocrine and Eyes/Ears/Nose/Throat Exam Surgical H&P Exam: Normal: HEENT, Normal: Heart, Normal: Lungs, Normal: Extremities, Normal: Abdomen, Normal: Skin and Normal: Neurological Plan Diagnosis/Plan: Unchanged I have reviewed the history and physical and performed a pertinent physical examination on my patient. No changes have occurred unless specified. EGD for ix of worsening reflux Time Spent With Patient Time: Total time managing care of this patient today ____ minutes.
[2023-10-22 09:22] VITALS: BP 111/52; PULSE 91; RESP 16; TEMP 36.3; O2SAT 95
--- NOTE | 2023-10-22 09:22 | W.PM.OPN ---
Operative Note Operative Note Date of Service: 10/22/23 Narrative: Procedure Description: EGD Indication: GERD Anesthesia: MAC FLEXIBLE TRANSORAL UPPER GASTROINTESTINAL ENDOSCOPY UPPER ENDOSCOPY Consent: Indications for the procedure and potential complications of bleeding, perforation, reaction to medications and missed diagnosis were discussed with the patient and informed consent was obtained. Instrument: Olympus GIF H 190 J mid size upper endoscope Monitoring: Vital signs and clinical assessment, continuous EKG monitoring, Pulse oximetry, Carbon Dioxide monitoring and blood pressure monitoring were done throughout the procedure. Procedure: The patient was placed in the left lateral decubitis position and pre-procedure medications were administered and a bite block was placed. The endoscope was inserted into the mouth and advanced under direct vision to the third part of duodenum. A careful inspection was made as the upper endoscope was withdrawn including a retroflexed examination of the proximal stomach; Findings and interventions are described below. Findings: Larynx:normal Esophagus: GE junction at 40 cm, diaphragm hiatus at 40 cm, irregular Z line, bx taken, one clip applied for hemostasis --balloon dilation of UES to 19 mm, no tears seen Stomach: mild erythema . Biopsies were obtained. Grade 3 flap valve on retroflexed examination of the cardia with v lax LEs noted. There appeared to be reduced gastric movement. Duodenum: Normal bulb and descending duodenum, Intervention: Biopsies as noted above, balloon dilation Impression/Findings: gastritis patulous GEJ reduced gastric movement PLAN: cont with PPI GERD precautions if ongoing sx then GES
[2023-10-22 09:37] VITALS: BP 113/48; PULSE 83; RESP 16; O2SAT 98
[2023-10-22 09:52] VITALS: BP 119/60; PULSE 79; RESP 18; TEMP 36.2; O2SAT 97
== END 2023-10-22 11:25 | disposition home or self-care (01) ==
PROVIDERS: PCP Internal Medicine; Visit Provider Internal Medicine Gastroenterology
PROC: 0DJ08ZZ Inspection of Upper Intestinal Tract, Via Natural or Artificial Opening Endoscopic (ICD-10-PCS; CPT 43235; principal; 2023-10-22 08:30)
DX: K21.9 Gastro-esophageal reflux disease without esophagitis (principal); K29.70 Gastritis, unspecified, without bleeding; K22.89 Other specified disease of esophagus; R19.8 Other specified symptoms and signs involving the digestive system and abdomen; E11.9 Type 2 diabetes mellitus without complications
CPT/HCPCS: 43249; 43239; 82947; 88305; 88313; 88342; C1726; J1596; J2704

== ENCOUNTER → 2023-10-22 06:38 | Outpatient (BNV) | payer MEDICARE, MEDICAID, SELFPAY ==
[2022-03-27 09:43] VITALS: BP 128/60; BMI 27.1
== END ==
PROVIDERS: PCP Internal Medicine; Visit Provider Internal Medicine Gastroenterology
DX: K21.9 Gastro-esophageal reflux disease without esophagitis (principal); K31.84 Gastroparesis; K22.89 Other specified disease of esophagus
CPT/HCPCS: 43239; 43249

== ENCOUNTER 2023-10-23 10:19 | Outpatient (AMB) | payer MEDICARE, MEDICAID, SELFPAY ==
[2022-03-27 09:43] VITALS: BP 128/60; BMI 27.1
[2023-10-23 10:36] VITALS: BP 120/60; PULSE 77; BMI 25.0
--- NOTE | 2023-10-23 10:36 | MHC.OFFVIS ---
Vital Signs 10/23/23 10:36 Height 5 ft 2 in Weight 136 lb 10.986 oz BMI 25.0 BP 120/60 Blood Pressure Location Lt brachial Position Sitting Pulse 77 Intake Visit Reasons: 4mth f/up Senior Quality Methods Specialist Required: No Accompanied by: Self / Same As Patient Allergies duloxetine [From CYMBALTA] Allergy (Intermediate, Verified 10/22/23 07:06) SHAKINESS Medication List - Last Reconciled 10/23/23 by Ollie Smith MD albuterol sulfate 90 mcg/actuation 90 mcg inhalation BID PRN ascorbic acid (vitamin C) (Vitamin C) 1,000 mg (2 x 500 mg) PO DAILY aspirin 81 mg PO DAILY atorvastatin 20 mg PO BEDTIME azathioprine (Imuran) 75 mg (1.5 x 50 mg) PO DAILY blood sugar diagnostic (FreeStyle Lite Strips) As directed cholecalciferol (vitamin D3) 25 mcg PO DAILY diclofenac sodium 1% 2 grams topical QID empagliflozin (Jardiance) 25 mg PO DAILY estradiol 0.01%(0.1mg/gram) 0.01 appful vaginal DAILY fluticasone propionate 50 mcg/actuation 50 mcg intranasal DAILY PRN glipizide 10 mg PO DAILY lansoprazole 30 mg PO BID 30 days linaclotide (Linzess) 290 mcg PO DAILY lisinopril 2.5 mg PO DAILY loratadine 10 mg PO DAILY PRN lorazepam 0.5 mg PO QID PRN metformin ER 1,000 mg PO BID methylnaltrexone (Relistor) 450 mg (3 x 150 mg) PO DAILY [nortriptyline 10 mg PO DAILY PRN] nut.tx.gluc intol,lf,soy-fiber 0.08-1.5 gram-kcal/mL (Glucerna 1.5 Shaheen) 1 ea PO BID ondansetron 4 mg PO Q6-8H PRN oxycodone 5 mg PO Q4-6H PRN simethicone (Gas Relief (simethicone)) 125 mg PO BID-QID PRN sucralfate 10 mL PO BID thiamine HCl (vitamin B1) 100 mg PO DAILY walker As directed HPI Comments Details: 63-year-old female who is here for follow-up. She has background history of fibromyalgia and lupus erythematosus. Previously she had echocardiography which showed normal biventricular function without any pericardial effusion. She was complaining of sharp chest pains in the past. Then she returned and was complaining of shortness of breath and burning chest discomfort. She was referred for exercise stress test where she was able to exercise for 2 minute 53 seconds and stopped because of shortness of breath and fatigue. She was changed to Lexiscan which did not show any perfusion defect. She was seen in follow-up and was complaining of exertional shortness of breath and symptoms. After discussion she was taken cardiac catheterization. Cardiac catheterization showed mild left main stenosis which was confirmed on intravascular ultrasound. She had severe mid right coronary artery stenosis which was treated with drug-eluting stent. She was initially on Brilinta and was later changed to Plavix. She is taking aspirin and Plavix at this point. He returns for follow-up today. She is complaining recent onset fatigue as well as dyspnea activities. These symptoms are similar to her pre PCI dyspnea. She is denying any other complaints currently. No bleeding concerns. Hemoglobin has been stable. She was sent for stress Mibi where she was able to exercise for 7 metabolic equivalents. She was able to achieve 92% of her maximum predicted heart rate with mild shortness of breath and isolated premature ventricular complexes. She had a normotensive response to exercise. No EKG changes were noticed. Nuclear perfusion imaging was normal. 04/29/2023: She returns for follow-up. She has no chest pain or shortness of breath. She has been experiencing some dryness in her throat after taking statins. She also has reflux symptoms. She is saying that she has not been using atorvastatin regularly and is using it up to 2 times a week. She is following with GI and has been started on Imuran for chronic autoimmune hepatitis. 10/23/23: She is here for follow-up. She is saying her breathing is stable. Most of her complaints are related to GI issues and she underwent endoscopy recently. She is saying she is losing weight and is not trying to lose weight. She also is complaining of right calf pain which is persistent discomfort in the calf. [facility] Medical History (Updated 10/23/23 @ 11:01 by Ollie Smith MD) Trigger finger, left ring finger Lupus Cirrhosis Antiphospholipid antibody syndrome Leg pain, right Abdominal bloating Arthritis Lupus POOL (dyspnea on exertion) Gallstones Cirrhosis Nonalcoholic steatohepatitis (SHARMA) Autoimmune hepatitis High blood pressure Fibromyalgia Diabetes Surgical History History of heart artery stent Hx of cholecystectomy Hx of endoscopy History of colonoscopy History of shoulder surgery History of cataract surgery (2010) History of repair of right rotator cuff (08/2011) History of cervical discectomy (07/2009) History of carpal tunnel release Family History Father History of diabetes mellitus, type II History of hypertension History of heart bypass surgery Mother History of diabetes mellitus, type II Brother History of gout Paternal Uncle Cancer Paternal Aunt Cancer Social History Household Members: None Housing: Apartment Are you a primary ocular care technician to a significant other at home: No 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 have visiting nurse 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) Alcohol intake: never Patient Tobacco Use Status: Never used Tobacco service: No Current occupational status: disabled Review of Systems Const Denies chills, Denies fatigue, Denies fever(s), Denies frequent falls, Denies weakness, Denies weight gain and Denies weight loss ENT Denies dizziness Card Denies chest pain, Denies leg edema, Denies lightheadedness, Denies palpitations, Denies dyspnea and Denies dyspnea on exertion Resp Denies cough, Denies dyspnea and Denies dyspnea on exertion GI Denies hematochezia Musc Denies abnormal gait, Denies muscle weakness, Denies numbness, Denies radiating pain into limb and Denies tingling Neuro Denies abnormal gait, Denies dizziness, Denies frequent falls, Denies numbness, Denies tingling and Denies weakness Endo Denies fatigue and Denies palpitations Physical Exam Vital Signs: Last Vital Signs Pulse 77 10/23/23 10:36 BP 120/60 10/23/23 10:36 BMI result Body Mass Index 25.0 GENERAL APPEARANCE: in no acute distress, pleasant. NECK: no carotid bruit, no jugular venous distention. SKIN: no suspicious lesions, warm and dry. HEART: no murmurs, regular rate and rhythm. LUNGS: clear to auscultation bilaterally. ABDOMEN: soft, nontender. EXTREMITIES: no edema. PERIPHERAL PULSES: equal. NEUROLOGIC: No gross deficits, AAO X 3 Office Procedures EKG Details: Sinus rhythm 77 beats per minute, normal axis, normal ECG, QTC 420 milliseconds. [id number], Complete Assessment & Plan Assessment & Plan (1) Right calf pain: Code(s): M79.661 - Pain in right lower leg Category: Medical (2) Coronary arteriosclerosis: Comment: right coronary stent - 11/2021 Code(s): I25.10 - Atherosclerotic heart disease of [place] coronary artery without angina pectoris Category: Medical Plan 63-year-old female who is here for follow-up. She has background history of lupus and coronary artery disease underwent right coronary artery PCI in the past. She has mild left main stenosis at that time. She has right calf discomfort ongoing. She also has lost some weight and underwent endoscopy with biopsy. We will do a right lower extremity ultrasound to rule out DVT given her weight loss and background of lupus. Blood pressure is well controlled. Stable angina currently and doing well from cardiovascular point of view. Thank you for allowing me to participate in the care of your patient. Please feel free to contact me if you have any questions. Orders: Orders US venous duplex LE RT Today M79.661 - Pain in right lower leg Coding Level of Care Code Est Pt Level 4 (06246) Diagnoses Right calf pain M79.661 Coronary arteriosclerosis I25.10 CPT Codes EKG - CPT: 82591-[id number], Complete ([id number])
== END 2023-10-23 11:10 | disposition home or self-care (01) ==
PROVIDERS: PCP Internal Medicine; Visit Provider Internal Medicine Cardiovascular Disease
DX: M79.661 Pain in right lower leg (principal); I25.10 Atherosclerotic heart disease of native coronary artery without angina pectoris
CPT/HCPCS: 93010; 99214

== ENCOUNTER → 2023-10-23 10:19 | Outpatient (BNVA) | payer MEDICARE, MEDICAID, SELFPAY ==
[2022-03-27 09:43] VITALS: BP 128/60; BMI 27.1
== END ==
PROVIDERS: PCP Internal Medicine; Visit Provider Internal Medicine Cardiovascular Disease

== ENCOUNTER 2023-10-23 11:22 | Outpatient (REF) | payer MEDICARE, MEDICAID, SELFPAY ==
[2022-03-27 09:43] VITALS: BP 128/60; BMI 27.1
--- NOTE | ~2023-10-23 | US_ITS ---
EXAMINATION: US VENOUS ULTRASOUND WITH DOPPLER LOWER EXTREMITY, RIGHT CLINICAL INFORMATION: Right leg pain. COMPARISON: None available. TECHNIQUE: Ultrasound of the deep veins is performed from the hip to the calf with compression sonography and color and pulse Doppler assessment. Spectral analysis with color-flow imaging is performed. FINDINGS: There is normal venous compression and respiratory variation and augmented flow. The visualized common femoral vein, superficial femoral vein, profunda femoral vein, popliteal vein, and the trifurcation region shows no evidence of deep venous thrombosis. There is no significant popliteal fossa cyst. US/US venous duplex LE RT IMPRESSION: No DVT demonstrated in the right lower extremity.
== END 2023-10-23 11:23 | disposition home or self-care (01) ==
LOC: HO.US 11:22
PROVIDERS: PCP Internal Medicine; Visit Provider Internal Medicine Cardiovascular Disease
DX: M79.661 Pain in right lower leg (principal); I25.10 Atherosclerotic heart disease of native coronary artery without angina pectoris
CPT/HCPCS: 93005; 93971; 99212

== ENCOUNTER 2023-11-06 09:44 | Outpatient (REF) | payer MEDICARE, MEDICAID, SELFPAY ==
[2022-03-27 09:43] VITALS: BP 128/60; BMI 27.1
[2023-11-06 09:59] LABS: MANUAL DIFF FLAG NO
[2023-11-06 10:04] LABS: Basophils Absolute Auto 0.1 X10*3/uL (0.0-0.2); Basophils Percent Auto 1.5 % (0-2); Eosinophils Absolute Auto 0.1 X10*3/uL (0.0-0.4); Eosinophils Percent Auto 3.2 % (0-4); Hematocrit 37.1 % (37.0-47.0); Hemoglobin 11.6 g/dl (12.0-16.0); Imm Gran Abs Auto 0.01 X10*3/uL (0.00-0.03); Imm Gran Pct Auto 0.2 % (0.0-0.4); Lymphocytes Absolute Auto 0.9 X10*3/uL (1.2-4.9); Mean Corpuscular HGB Conc 31.3 g/dl (31.0-35.0); Mean Corpuscular Hemoglobin 27.3 pg (27.0-33.0); Mean Corpuscular Volume 87.3 fL (80.0-98.0); Mean Platelet Volume 9.6 fL (9.4-12.3); Monocytes Absolute Auto 0.5 X10*3/uL (0.1-1.2); Monocytes Percent Auto 11.1 % (2-11); Neutrophils Absolute Auto 2.5 x10*3/uL (2.0-8.3); Platelet Count 217 X10*3/uL (160-400); Red Blood Count 4.25 X10*6/uL (4.20-5.50); Red Cell Distribution Width 15.4 % (11.0-16.0)
[2023-11-06 10:11] LABS: Appearance Urine Clear; Color Urine Yellow; Glucose Urine UA >=1000 mg/dL (Negative); Leukocyte Esterase Urine Negative (Negative); Nitrite Urine Negative (Negative); Specific Gravity - Urine 1.025 (1.005-1.025); UMIC TRIGGER UACC YES; Urine Blood Negative (Negative); Urine Ketones Negative (Negative); Urine Protein Negative (Neg-Trace)
[2023-11-06 10:15] LABS: Estimated Average Glucose 163 mg/dL; Hemoglobin A1c % 7.3 % (<6.0)
[2023-11-06 10:16] LABS: Bacteria Urine None Seen (None Seen); Hyaline Casts Urine 0-2 /LPF (0-2); RBC Urine 0-2 /HPF (0-2); Squamous Epithelial Cell Urine 0-2 /HPF (0-2); WBC Urine 0-5 /HPF (0-5)
[2023-11-06 10:45] LABS: Alanine Aminotransferase 27 U/L (0-31); Alkaline Phosphatase 176 U/L (39-117); Anion Gap 11 (12-20); Aspartate Amino Transferase 44 U/L (5-31); Bilirubin Total 0.4 mg/dL (0.0-1.0); Blood Urea Nitrogen 10 mg/dL (9-16); Calcium 9.6 mg/dL (8.4-10.2); Carbon Dioxide 26 mmol/L (22-29); Chloride 104 mmol/L (96-108); Cholesterol 130 mg/dL (<200); Estimated Glomerular Filt Rate > 60; Glucose Random 180 mg/dL (60-115); HDL Cholesterol 42 mg/dL (>40); LDL Cholesterol Calculated 69 mg/dL (<100); Potassium 4.1 mmol/L (3.3-5.1); Sodium 137 mmol/L (135-145); Total Protein 9.6 g/dL (6.5-8.0); Triglycerides 95 mg/dL (<150)
[2023-11-06 11:00] LABS: TSH reflex Free T4 3.12 uIU/mL (0.32-4.0)
[2023-11-06 11:03] LABS: Creatinine Urine 38.25 mg/dL; Microalbumin Urine < 5.0 mg/L
== END 2023-11-06 09:45 | disposition home or self-care (01) ==
LOC: HO.LAB 09:44
PROVIDERS: PCP Internal Medicine; Visit Provider Internal Medicine
DX: I25.118 Atherosclerotic heart disease of native coronary artery with other forms of angina pectoris (principal); E11.9 Type 2 diabetes mellitus without complications; R53.83 Other fatigue; R53.81 Other malaise; I10 Essential (primary) hypertension
CPT/HCPCS: 36415; 80053; 80061; 81001; 82043; 82550; 82570; 83036; 84443; 85025

== ENCOUNTER 2023-11-22 08:48 | Outpatient (REF) | payer MEDICARE, MEDICAID, SELFPAY ==
[2022-03-27 09:43] VITALS: BP 128/60; BMI 27.1
--- NOTE | ~2023-11-22 | MM_ITS ---
EXAMINATION: MM DIAGNOSTIC DIGITAL BREAST TOMOSYNTHESIS, BILATERAL CLINICAL INFORMATION: 12 month follow-up for probably benign calcifications left breast 9:00 axis. Due for bilateral screening. No significant family history. No current complaints. COMPARISON: Mammography: 11/15/2022, 11/14/2021, 05/16/2021, 11/15/2020, 11/08/2020 (BI-RADS 0), 07/16/2019 TECHNIQUE: Digital breast tomosynthesis is performed in both the craniocaudal and mediolateral oblique views along with computer-aided detection (CAD). Synthesized 2D images are generated from the tomosynthesis. In addition to standard views, 2-D spot magnification views of the left breast were obtained in the CC and LM projections. FINDINGS: There are scattered areas of fibroglandular density (ACR BI-RADS breast composition Category b). 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 No further follow-up recommended. Otherwise, there are stable oval asymmetries in both breasts, unchanged. There is a 12:00 axis middle one third lymph node in the right breast. There are no suspicious masses, new suspicious grouped calcifications, or areas of architectural distortion in either breast. The parenchymal pattern is stable from prior exams. There is no skin or axillary abnormality. MM/MM tomosynthesis diagnostic BI IMPRESSION: There are no findings suspicious for malignancy in either breast. Calcifications in the 9:00 axis left breast are clearly benign, most likely related to a degenerating fibroadenoma. No further follow-up recommended. Otherwise, there has been no significant change in either breast with no suspicious findings. Recommend returning to routine annual screening. ASSESSMENT: BI-RADS BI-RADS 2 - Benign Findings RECOMMENDATION: 1 year F/U Results were provided to the patient at time of visit by the technologist. This patient's information was entered into a reminder system with a target due date for their next mammogram.
== END 2023-11-22 08:49 | disposition home or self-care (01) ==
LOC: HO.MAMMO 08:48
PROVIDERS: PCP Internal Medicine; Visit Provider Internal Medicine
DX: R92.1 Mammographic calcification found on diagnostic imaging of breast (principal)
CPT/HCPCS: 77062; 77066

== ENCOUNTER → 2023-11-22 09:30 | Outpatient (BNV) | payer MEDICARE, MEDICAID, SELFPAY ==
[2022-03-27 09:43] VITALS: BP 128/60; BMI 27.1
== END ==
PROVIDERS: PCP Internal Medicine; Visit Provider Radiology Diagnostic Radiology
DX: R92.1 Mammographic calcification found on diagnostic imaging of breast (principal)
CPT/HCPCS: 77066; G0279

== ENCOUNTER 2023-12-02 11:50 | Outpatient (AMB) | payer MEDICARE, MEDICAID, SELFPAY ==
[2022-03-27 09:43] VITALS: BP 128/60; BMI 27.1
--- NOTE | 2023-12-02 11:51 | A.OFFVIS_ITS ---
Vital Signs 12/02/23 11:55 Height 5 ft 2 in Weight 139 lb 12.369 oz BMI 25.6 BP 124/59 L Blood Pressure Location Lt brachial Position Sitting Pulse 75 Pulse Source Pulse Oximeter Intake Visit Reasons: f/u EGD Intake Note: Radha presents in the office as a follow up EGD. CC: Patient reports that she had labs done recently and her PCP told her that she has protein in her blood . She would like Dr. Liu to explain labs to her. She reports constipation, right sided abdominal swealling, a lot of gas, and GERD. Accompanied by: Self / Same As Patient Allergies duloxetine [From CYMBALTA] Allergy (Intermediate, Verified 12/02/23 11:59) SHAKINESS HPI HPI f/u EGD: Details: 63 yr old f here for f/u for AIH RECAP- index visit 04/2019 she was diagnosed with AIH and had been on imuran for 2 yrs (50 mg) but was then changed to 6 tabs MTX weekly and folic acid daily, after imuran stopped but this was recommenced and the MTX stopped due to SE and rising LFT she was dx based on lab work per her report she had liver bx ordered by her ID specialist (she was seeing for assessment of hep c but she doesn;t have it) she had pain since liver bx (02/2019) but does admit maybe it was there before no vomiting but occ nausea sometimes has constipation, which exacerbates her abdo pain mentioned above--stool was hard, and she has to push appetite is not so good, can't say why weight was going down she had been having constipation, on oxycodone 10 mg daily on prednisone for lupus she was given movantik for opiate induced constipation and pentoxyfilin for possible SHARMA she was referred to Dr Desai for gallstones causing abdo pain, and had cholecystectomy 05/2020 h pylori f/u testing has been negative TESTS: she has abn AST/ALT on and off for last several years on review of [place] cbc 02/2019--normal LFT: 12/2018--normal, LFT 06/25-2019 mild AST, ALT elevation LFT: 09/2019--AST36, ALT 42, alk phos--103, bili 0.4 LFT- 11/2019- bili-nml, AST-37, ALT-39, alk phos- 92 LFT 12/2019-- AST-42,ALT,40, GGT 109, alk phos--nml, bili 0.6 HEAVEN 1:1280 ds DNA--pos LFT- 04/19/2020--AST94, ALT 87, alk phos 148, bili 0.5 LFT 08/2020--nml, protein high, Ig levels high, SPEP neg LFT 12/16-- bili 5, AST 96, ALT 239 ( Imuran had been stopped due to v high levels of 6 TG and ^ MMP -->75908) 6 TG <50, 6 MMp 1516 LFT 11/06/23 bili-0.4, AST 44, ALT 27, alk florinda 176, (INR from 08/17--1.0) vitamin A level had been low--improved with replacement BIOPSY: liver bx with grade 1, stage 4 cirrhosis, mixed macro and microvesicular steatosis, and background steatohepatitis IMAGING: MRI 05/18-- adenitis, cirrhosis, no mass lesions, few LNs Upper GI series: moderate GERD< nml stomach and duodenum US 11/2021- cirrhosis, no mass GES- 2021- nml EGD/colonoscopy- 04/2021-- esophagitis, gastritis, h pylori noted, x 1Ta removed, MRI 03/2021-- nodular liver, venous collaterals, MRI 08/2020--stable LN, liver with borderline steatosis, no mass lesions MRI 05/2020--upper abdo LN--stable, cirrhosis of liver noted CT 12/2019--liver calcifications, retroperitoneal LNs, gallstones u/s 10/2019--gallstones, adenomyomatosis, F3-4 elastography u/s 11/2018--coarse liver, no masses, CT 2017--mildly enalrged LN, hepatic granulomas, central mesenteric stranding EGD 04/2019--reflux, no varices EGD 10/17: no varices, patulous LEs, possible gastroparesis -balloon dilation of UES INTERIM: she feels better with swallowing since dilation she has ongoing probs with gas and fullness, appetite is variable she is taking oxycodone every few days taking imuran 75 mg daily lansoprazole 30 mg bid EXAM: GENERAL: The patient is well developed and nontoxic. VITAL SIGNS:see workflow HEENT: Nonicteric sclerae, PERRLA, EOMI. Oropharynx clear. Moist mucous membranes. Conjunctivae appear well perfused. No thyroid mass. CHEST: Chest wall is nontender. HEART: Regular rate and rhythm without murmurs. LUNGS: Clear to auscultation bilaterally. ABDOMEN: Soft, positive bowel sounds, mild tender RUQ, no organomegaly, lipoma felt SKIN: No rash, no excessive bruising, petechiae, or purpura. NEUROLOGIC: Cranial nerves II-XII intact without motor/sensory deficit. Assessments 1. Cirrhosis of liver-suspected from combination of AIH and SHARMA, imuran stopped due to high levels, now restarted at 50 mg, and up to 75 mg 2. Gallstones AND ADENOMYOMATOSIS, s/p cholecystectomy by Dr Desai 3. constipation-opiate related with bloating, maybe causing gastroparesis PLAN: 1/ get TPMT levels and metabolites in 1 month with iron levels 2/ US liver \ 3/ GES PFSH Medical History Trigger finger, left ring finger Lupus Cirrhosis Antiphospholipid antibody syndrome Leg pain, right Abdominal bloating Arthritis Lupus POOL (dyspnea on exertion) Gallstones Cirrhosis Nonalcoholic steatohepatitis (SHARMA) Autoimmune hepatitis High blood pressure Fibromyalgia Diabetes Surgical History History of heart artery stent Hx of cholecystectomy Hx of endoscopy History of colonoscopy History of shoulder surgery History of cataract surgery (2010) History of repair of right rotator cuff (08/2011) History of cervical discectomy (07/2009) History of carpal tunnel release Family History Father History of diabetes mellitus, type II History of hypertension History of heart bypass surgery Mother History of diabetes mellitus, type II Brother History of gout Paternal Uncle Cancer Paternal Aunt Cancer Social History Household Members: None Housing: Apartment Are you a primary director of career resources to a significant other at home: No 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 have visiting 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) Alcohol intake: never Patient Tobacco Use Status: Never used Tobacco service: No Current occupational status: disabled Physical Exam Vital Signs: Last Vital Signs Pulse 75 12/02/23 11:55 BP 124/59 L 12/02/23 11:55 BMI result Body Mass Index 25.6 Assessment & Plan Assessment & Plan (1) Lupus: Code(s): M32.9 - Systemic lupus erythematosus, unspecified Category: Medical Plan: see above Orders: Orders US abdomen manrique w elastography 12/02/23 K74.60 - Unspecified cirrhosis of liver, K75.81 - Nonalcoholic steatohepatitis (SHARMA), M32.9 - Systemic lupus erythematosus, unspecified Comprehensive Met. Panel 1 Month K75.81 - Nonalcoholic steatohepatitis (SHARMA), M32.9 - Systemic lupus erythematosus, unspecified NM gastric emptying study 12/02/23 M32.9 - Systemic lupus erythematosus, unspecified, R68.81 - Early satiety Thiopurine Metabolites 1 Month M32.9 - Systemic lupus erythematosus, unspecified Ferritin 1 Month M32.9 - Systemic lupus erythematosus, unspecified IRON PROFILE 1 Month M32.9 - Systemic lupus erythematosus, unspecified Complete Blood Count Auto Diff 1 Month M32.9 - Systemic lupus erythematosus, unspecified Medications: Refilled azathioprine 75 mg (1.5 x 50 mg) PO DAILY 60 tabs 1RF Coding Level of Care Code Est Pt Level 4 (20305) Diagnoses Lupus M32.9
[2023-12-02 11:55] VITALS: BP 124/59; PULSE 75; BMI 25.6
== END 2023-12-02 13:00 | disposition home or self-care (01) ==
PROVIDERS: PCP Internal Medicine; Visit Provider Internal Medicine Gastroenterology
DX: M32.9 Systemic lupus erythematosus, unspecified (principal)
CPT/HCPCS: 99214

== ENCOUNTER → 2023-12-02 11:50 | Outpatient (BNVA) | payer MEDICARE, MEDICAID, SELFPAY ==
[2022-03-27 09:43] VITALS: BP 128/60; BMI 27.1
== END ==
PROVIDERS: PCP Internal Medicine; Visit Provider Internal Medicine Gastroenterology
DX: M32.9 Systemic lupus erythematosus, unspecified (principal)
CPT/HCPCS: 99212

== ENCOUNTER 2023-12-17 08:35 | Outpatient (REF) | payer MEDICARE, MEDICAID, SELFPAY ==
[2022-03-27 09:43] VITALS: BP 128/60; BMI 27.1
--- NOTE | ~2023-12-17 | US_ITS ---
EXAMINATION: US ABDOMEN LIMITED WITH LIVER ELASTOGRAPHY CLINICAL INFORMATION: Nonalcoholic steatohepatitis (SHARMA). COMPARISON: Ultrasound abdomen with elastoplasty 04/08/2023. CT abdomen and pelvis 01/13/2022. TECHNIQUE: Real-time imaging of the abdominal viscera. Noninvasive ultrasound liver fibrosis assessment is performed using Jimmie ElastPQ point quantification shear wave elastography (2D-SWE) with a C5-2 MHz transducer. Multiple elastography samples are obtained. FINDINGS: PANCREAS: Normal. The visualized pancreatic head and body are normal in appearance. The remainder of the pancreas is obscured from visualization by the overlying bowel gas. Some peripancreatic lymph nodes are seen measuring 2.0 x 2.2 x 2.8 cm and 1.1 x 2.4 x 4.1 cm. Similar findings may also be seen on the prior 01/14/2020 CT scan. LIVER: Liver is enlarged at 18 cm with increased heterogeneous echogenicity. The border is nodular suggesting cirrhosis. 2 echogenic foci are seen in the right lobe suggesting granulomas which could also be seen on the prior 2019 CT scan. No focal lesion or intrahepatic biliary duct dilatation. The right lobe measures 18 cm in length. The left lobe measures 12.5 cm in length. Portal flow is towards the liver (hepatopetal). Shear wave liver elastography median stiffness is 1.75 m/s (reference: normal median stiffness is 1.3 m/s or less). Previously this value was 1.59 m/s. IQR/median stiffness to assess sampling precision is 0.14 (reference: good quality data set is IQR/median stiffness of 0.15 or less). GALLBLADDER: Status post cholecystectomy. COMMON BILE DUCT: Normal in caliber measuring 0.4 cm in diameter. RIGHT KIDNEY: No hydronephrosis. 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 No renal calculi or additional focal parenchymal lesions. The kidney measures 11.1 cm in maximum dimension. FREE FLUID: None. US/US abdomen manrique w elastography IMPRESSION: 1. Enlarged heterogeneous echogenic liver with nodular border suggesting cirrhosis with fatty infiltration. 2. Liver elastography: Measurements are suggestive of compensated advanced chronic liver disease but need further test for confirmation. When compared with prior exam, there is a statistically significant increase in liver stiffness (increase at least 10%). 3. 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 REFERENCE: Society of Radiologists in Ultrasound Liver Stiffness Thresholds (2020): LIVER STIFFNESS THRESHOLDS: *Liver Stiffness equal or less than 1.3 m/s: High probability of being normal. *Liver Stiffness less than 1.7 m/s: In the absence of other known clinical signs, rules out compensated advanced chronic liver disease. *Liver Stiffness 1.7-2.1 m/s: Suggestive of compensated advanced chronic liver disease but need further test for confirmation. *Liver Stiffness over 2.1 m/s: Rules in compensated advanced chronic liver disease. *Liver Stiffness over 2.4 m/s: Suggestive of clinically significant portal hypertension. QUALITY OF DATA SET: *IQR/Median value equal or less than 0.15 implies a quality data set. *IQR/Median value over 0.15 implies a poor quality data set. SIGNIFICANT CHANGE FROM PRIOR EXAM: Significant change if liver stiffness measurement is 10% or greater from prior exam. OTHER CONSIDERATIONS: The stage of liver fibrosis may be overestimated in the setting of acute hepatitis, liver inflammation, elevated liver function tests, hepatic vascular congestion, obstructive cholestasis, non-fasting state, and infiltrative diseases such as amyloidosis and lymphoma. In some patients with NAFLD, the liver stiffness thresholds for compensated advanced chronic liver disease may be lower. In causes other than viral hepatitis and NAFLD, liver stiffness thresholds are not well established.
== END 2023-12-17 08:36 | disposition home or self-care (01) ==
LOC: HO.US 08:35
PROVIDERS: Visit Provider Internal Medicine Gastroenterology
DX: K75.81 Nonalcoholic steatohepatitis (NASH) (principal); K74.60 Unspecified cirrhosis of liver; M32.9 Systemic lupus erythematosus, unspecified
CPT/HCPCS: 76705; 76981

== ENCOUNTER → 2024-01-02 08:19 | Outpatient (REF) | payer MEDICARE, MEDICAID, SELFPAY ==
[2022-03-27 09:43] VITALS: BP 128/60; BMI 27.1
--- NOTE | ~2024-01-02 | NM_ITS ---
EXAMINATION: DC RADIONUCLIDE SOLID FOOD GASTRIC EMPTYING 4-HOUR STUDY CLINICAL INFORMATION: Early satiety. COMPARISON: Previous gastric emptying study done on 08/04/2021. TECHNIQUE: A standard meal consisting of 4 oz of Egg Beaters brand tagged with 1000 microcuries Tc-99m Sulfur Colloid, 8 oz water and 2 slices of toast with jelly was administered orally to the patient. Images were obtained using a dual head gamma camera in the anterior and posterior projections over of the stomach immediately post ingestion and at hourly intervals up to 4 hours post ingestion. The anterior and posterior counts at each time interval were averaged using the geometric mean and expressed as percentage of the immediate post ingestion counts. FINDINGS: There is good visualization of activity in the stomach immediately post ingestion. As the study progresses, there is good clearance of activity from the stomach and visualization of progressively increasing small bowel activity. By the end of the study, there is almost no retention noted in the stomach. Retention in the stomach at each time interval was: 1 hour 43% (normal 37%-90%) 2 hours 13% (normal 30%-60%) 3 hours 1% 4 hours estimation was not performed since only one percent retention was noted at 3 hours interval. DC/DC gastric emptying study IMPRESSION: Normal 4-hour solid food gastric emptying study. No significant change since prior study dated 08/04/2021. For solid meal, rapid gastric emptying is less than 30% at 60 minutes. Delayed gastric emptying criteria is more than 60% remaining at 120 minutes or more than 10% at 240 minutes. The 4-hour value is the best discriminator of a normal or abnormal result). Gastric emptying study grading per JNMT Consensus Recommendations in 2008 (https://tech.snmjournals.org/content/36//44) Grade 1 (mild retention): 11-20% at 4h Grade 2 (moderate retention): 21-35% at 4h Grade 3 (severe retention): 36-50% at 4h Grade 4 (very severe retention): >50% retention at 4h
== END ==
LOC: HO.NUCMED 08:19
PROVIDERS: PCP Internal Medicine; Visit Provider Internal Medicine Gastroenterology
DX: R68.81 Early satiety (principal); M32.9 Systemic lupus erythematosus, unspecified
CPT/HCPCS: 78264; A9541

== ENCOUNTER 2024-02-03 09:38 | Emergency (ER) | payer MEDICARE, MEDICAID, SELFPAY ==
[2022-03-27 09:43] VITALS: BP 128/60; BMI 27.1
[2024-02-03 09:50] VITALS: BP 142/63; PULSE 83; RESP 16; TEMP 37; O2SAT 98; BMI 24.8
--- NOTE | 2024-02-03 14:16 | ED_ITS ---
HPI - Headache General Chief Complaint: Headache Stated Complaint: headache Related Data Home Medications ?Medication ?Instructions ?Recorded ?Confirmed glipizide 10 mg tablet 10 mg PO DAILY 05/17/20 12/12/23 albuterol sulfate 90 mcg/actuation 90 mcg inhalation BID PRN 06/06/20 12/12/23 aerosol inhaler Shortness Of Breath fluticasone propionate 50 50 mcg intranasal DAILY PRN Nasal 06/06/20 12/12/23 mcg/actuation nasal Congestion spray,suspension loratadine 10 mg tablet 10 mg PO DAILY PRN Allergy Symptoms 06/07/20 12/12/23 lorazepam 0.5 mg tablet 0.5 mg PO QID PRN Anxiety 06/07/20 12/12/23 ondansetron 4 mg disintegrating 4 mg PO Q6-8H PRN Nausea 06/07/20 12/12/23 tablet oxycodone 5 mg tablet 5 mg PO Q4-6H PRN Pain 06/07/20 12/12/23 empagliflozin 25 mg tablet 25 mg PO DAILY 06/13/20 12/12/23 (Jardiance) nortriptyline 10 mg PO DAILY PRN Insomnia 12/05/20 12/12/23 atorvastatin 20 mg tablet 20 mg PO BEDTIME 04/09/22 12/12/23 blood sugar diagnostic (FreeStyle #10 ea 02/25/23 12/12/23 Lite Strips) cholecalciferol (vitamin D3) 25 25 mcg PO DAILY 02/25/23 12/12/23 mcg (1,000 unit) tablet estradiol 0.01% (0.1 mg/gram) 0.01 appful vaginal DAILY 02/25/23 12/12/23 vaginal cream lisinopril 2.5 mg tablet 2.5 mg PO DAILY 02/25/23 12/12/23 metformin 500 mg tablet,extended 1,000 mg PO BID 02/25/23 12/12/23 release 24 hr Previous Rx's ?Medication ?Instructions ?Recorded walker #1 ea 05/08/20 simethicone 125 mg capsule (Gas 125 mg PO BID-QID PRN abdominal 06/27/20 Relief (simethicone)) distention #20 caps aspirin 81 mg tablet,delayed 81 mg PO DAILY #30 tabs 12/27/20 release diclofenac sodium 1 % topical gel 2 g topical QID #100 grams 12/04/22 nutrition tx glu 1 ea PO BID #8,000 mL 06/03/23 intol,lac-free,soy-fiber 0.08 gram-1.5 kcal/mL liquid (Glucerna 1.5 Shaheen) ascorbic acid (vitamin C) 500 mg 1,000 mg (2 x 500 mg) PO DAILY 08/12/23 tablet (Vitamin C) #180 tabs methylnaltrexone 150 mg tablet 450 mg (3 x 150 mg) PO DAILY #90 10/15/23 (Relistor) tabs lansoprazole 30 mg capsule,delayed 30 mg PO BID 30 days #60 caps 11/13/23 release sucralfate 100 mg/mL oral 10 ml PO BID #1,000 mL 11/13/23 suspension azathioprine 50 mg tablet 75 mg (1.5 x 50 mg) PO DAILY #60 12/02/23 tabs thiamine HCl (vitamin B1) 100 mg 100 mg PO DAILY #90 tabs 12/03/23 tablet linaclotide 290 mcg capsule 290 mcg PO DAILY #30 caps 01/28/24 (Linzess) Allergies Allergy/AdvReac Type Severity Reaction Status Date / Time duloxetine [From CYMBALTA] Allergy Intermediate SHAKINESS Verified 02/03/24 09:51 PMFSH Past Medical History Medical History Trigger finger, left ring finger Lupus Cirrhosis Antiphospholipid antibody syndrome Leg pain, right Abdominal bloating Arthritis Lupus POOL (dyspnea on exertion) Gallstones Cirrhosis Nonalcoholic steatohepatitis (SHARMA) Autoimmune hepatitis High blood pressure Fibromyalgia Diabetes Surgical History History of heart artery stent Hx of cholecystectomy Hx of endoscopy History of colonoscopy History of shoulder surgery History of cataract surgery (2010) History of repair of right rotator cuff (08/2011) History of cervical discectomy (07/2009) History of carpal tunnel release Family History Family History Father History of diabetes mellitus, type II History of hypertension History of heart bypass surgery Mother History of diabetes mellitus, type II Brother History of gout Paternal Uncle Cancer Paternal Aunt Cancer Social History Social History Household Members: None Housing: Apartment Are you a primary lawn care professional to a significant other at home: No 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 have visiting nurse 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 RME assessment and note performed by: Emily Robison PA-C This is a [id number]-female who presents to the ER with complaints of headache x 3 days, taking OTC without relief. Further ER eval needed Medical Decision Making Lab Data Labs: Lab Results 02/03/24 Range/Units 14:16 POC Glucose 137 H (60-115) mg/dL Discharge Plan Discharge Clinical Impression: Headache Patient Disposition: Left W/O Completing Treatment Prescriptions: No Action simethicone [Gas Relief (simethicone)] 125 mg capsule 125 mg PO BID-QID PRN (Reason: abdominal distention) Qty: 20 0RF aspirin 81 mg tablet,delayed release (DR/EC) 81 mg PO DAILY Qty: 30 5RF ascorbic acid (vitamin C) [Vitamin C] 500 mg tablet 1,000 mg PO DAILY Qty: 180 1RF Relistor 150 mg tablet 450 mg PO DAILY Qty: 90 1RF lansoprazole 30 mg capsule,delayed release(DR/EC) 30 mg PO BID 30 Days Qty: 60 2RF sucralfate 100 mg/mL suspension 10 ml PO BID Qty: 1000 2RF thiamine HCl (vitamin B1) 100 mg tablet 100 mg PO DAILY Qty: 90 1RF Linzess 290 mcg capsule 290 mcg PO DAILY Qty: 30 3RF lorazepam 0.5 mg tablet 0.5 mg PO QID PRN (Reason: Anxiety) ondansetron 4 mg tablet,disintegrating 4 mg PO Q6-8H PRN (Reason: Nausea) loratadine 10 mg Tablet 10 mg PO DAILY PRN (Reason: Allergy Symptoms) oxycodone 5 mg tablet 5 mg PO Q4-6H PRN (Reason: Pain) nortriptyline 10 mg PO DAILY PRN (Reason: Insomnia) (DME) shade [facility] [place] See Rx Instructions .ROUTE .MEDSUPPLY Qty: 1 0RF Rx Instructions: As directed Jardiance 25 mg Tablet 25 mg PO DAILY diclofenac sodium 1 % gel 2 g topical QID Qty: 100 0RF Rx Instructions: apply to single elbow, wrist or hand; for hand includes palm/fingers/back of hand fluticasone propionate 50 mcg/actuation spray,suspension 50 mcg intranasal DAILY PRN (Reason: Nasal Congestion) albuterol sulfate 90 mcg/actuation HFA aerosol inhaler 90 mcg inhalation BID PRN (Reason: Shortness Of Breath) glipizide 10 mg tablet 10 mg PO DAILY atorvastatin 20 mg tablet 20 mg PO BEDTIME lisinopril 2.5 mg tablet 2.5 mg PO DAILY (DME) FreeStyle Lite Strips Strip See Rx Instructions .ROUTE TID Qty: 10 Rx Instructions: As directed metformin 500 mg tablet extended release 24 hr 1,000 mg PO BID cholecalciferol (vitamin D3) 25 mcg (1,000 unit) tablet 25 mcg PO DAILY estradiol 0.01 % (0.1 mg/gram) cream 0.01 appful vaginal DAILY azathioprine 50 mg tablet 75 mg PO DAILY Qty: 60 1RF Glucerna 1.5 Shaheen 0.08-1.5 gram-kcal/mL liquid 1 ea PO BID Qty: 8000 3RF Discharge Date/Time: 02/03/24 19:36
[2024-02-03 14:19] LABS: Glucose, Whole Blood 137 mg/dL (60-115)
== END 2024-02-03 19:36 | disposition left against medical advice (07) ==
LOC: HO.ED 19:22
PROVIDERS: Emergency Provider Emergency Medicine; PCP Internal Medicine
DX: R51.9 Headache, unspecified (principal); Z79.899 Other long term (current) drug therapy
CPT/HCPCS: 82947; 99281

== ENCOUNTER 2024-02-18 14:45 | Outpatient (REF) | payer MEDICARE, MEDICAID, SELFPAY ==
[2022-03-27 09:43] VITALS: BP 128/60; BMI 27.1
--- NOTE | ~2024-02-18 | XR_ITS ---
EXAMINATION: XR CHEST CLINICAL INFORMATION: Dyspnea COMPARISON: October 25, 2022 TECHNIQUE: 2 views of the chest were obtained. FINDINGS: There is no gross pneumothorax. Heart size is normal. Mild dextroscoliosis. Degenerative changes in the thoracic spine. No pleural effusion. No focal consolidation. XR/XR chest 2V IMPRESSION: No evidence of pneumonia. Electronically signed by: Maia George MD 02/24/2024 12:05 PM EDT RP
[2024-02-18 15:02] LABS: MANUAL DIFF FLAG NO
[2024-02-18 15:50] LABS: Basophils Percent Auto 0.9 % (0-2); Eosinophils Absolute Auto 0.1 X10*3/uL (0.0-0.4); Eosinophils Percent Auto 2.3 % (0-4); Hematocrit 36.8 % (37.0-47.0); Hemoglobin 11.2 g/dl (12.0-16.0); Imm Gran Abs Auto 0.02 X10*3/uL (0.00-0.03); Imm Gran Pct Auto 0.5 % (0.0-0.4); Lymphocytes Percent Auto 23.5 % (20-40); Mean Corpuscular HGB Conc 30.4 g/dl (31.0-35.0); Mean Corpuscular Hemoglobin 26.5 pg (27.0-33.0); Mean Platelet Volume 10.4 fL (9.4-12.3); Monocytes Absolute Auto 0.4 X10*3/uL (0.1-1.2); Monocytes Percent Auto 9.6 % (2-11); Neutrophils Absolute Auto 2.7 x10*3/uL (2.0-8.3); Neutrophils Percent Auto 63.2 % (45-73); Platelet Count 226 X10*3/uL (160-400); Red Blood Count 4.23 X10*6/uL (4.20-5.50); White Blood Count 4.3 X10*3/uL (4.8-10.8)
[2024-02-18 15:57] LABS: Prothrombin Time 12.1 SEC (10.9-12.4)
[2024-02-18 16:12] LABS: Appearance Urine Clear; Color Urine Yellow; Glucose Urine UA >=1000 mg/dL (Negative); Leukocyte Esterase Urine Negative (Negative); Nitrite Urine Negative (Negative); UMIC TRIGGER UA YES; Urine Blood Negative (Negative); Urine Ketones Negative (Negative); Urine Protein Negative (Neg-Trace)
[2024-02-18 16:22] LABS: Bacteria Urine None Seen (None Seen); Hyaline Casts Urine 0-2 /LPF (0-2); RBC Urine 0-2 /HPF (0-2); Squamous Epithelial Cell Urine 0-2 /HPF (0-2); WBC Urine 0-5 /HPF (0-5)
[2024-02-18 16:58] LABS: Erythrocyte Sedimentation Rate 71 MM/HR (0-20)
[2024-02-18 18:09] LABS: Alanine Aminotransferase 28 U/L (0-31); Albumin Level 3.7 g/dL (3.5-5.0); Alkaline Phosphatase 185 U/L (39-117); Anion Gap 11 (12-20); Aspartate Amino Transferase 49 U/L (5-31); Bilirubin Total 0.4 mg/dL (0.0-1.0); Blood Urea Nitrogen 11 mg/dL (9-16); C Reactive Protein 0.57 mg/dL (< or = 0.50); Calcium 9.7 mg/dL (8.4-10.2); Carbon Dioxide 23 mmol/L (22-29); Chloride 105 mmol/L (96-108); Estimated Glomerular Filt Rate > 60; Glucose Random 141 mg/dL (60-115); Iron 45 mcg/dL (30-160); Percent Iron Saturation 13 % (15-50); Potassium 3.7 mmol/L (3.3-5.1); Sodium 135 mmol/L (135-145); Total Iron Binding Capacity 351 mcg/dL (228-428); Total Protein 9.7 g/dL (6.5-8.0); Unsaturated Iron Binding 306 ug/dL
[2024-02-18 18:28] LABS: Ferritin 25 ng/mL (10-250)
[2024-02-19 22:48] LABS: Anti DNA DS Antibody 86 IU/mL
[2024-02-20 09:44] LABS: Complement C3 154 mg/dL (83-193)
[2024-02-24 21:59] LABS: 6-MMPN 1228 (<5700); 6-TGN 114 (235-400)
== END 2024-02-18 14:46 | disposition home or self-care (01) ==
LOC: HO.XRAY 14:45
PROVIDERS: Absent Provider Internal Medicine Gastroenterology; PCP Internal Medicine; Visit Provider Nurse Practitioner Family
DX: R06.00 Dyspnea, unspecified (principal); K75.4 Autoimmune hepatitis; K75.81 Nonalcoholic steatohepatitis (NASH); M32.9 Systemic lupus erythematosus, unspecified
CPT/HCPCS: 36415; 71046; 80053; 80299; 81001; 82728; 83540; 85025; 85610; 85652; 86140; 86160; 86225

== ENCOUNTER 2024-02-21 09:48 | Outpatient (AMB) | payer MEDICARE, MEDICAID, SELFPAY ==
[2022-03-27 09:43] VITALS: BP 128/60; BMI 27.1
[2024-02-21 09:59] VITALS: BP 124/60; PULSE 91; BMI 24.6
--- NOTE | 2024-02-21 09:59 | A.OFFVIS_ITS ---
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1mg/gram) 0.01 appful vaginal DAILY fluticasone propionate 50 mcg/actuation 50 mcg intranasal DAILY PRN glipizide 10 mg PO DAILY lansoprazole 30 mg PO BID 30 days linaclotide (Linzess) 290 mcg PO DAILY lisinopril 2.5 mg PO DAILY loratadine 10 mg PO DAILY PRN lorazepam 0.5 mg PO QID PRN metformin ER 1,000 mg PO BID methylnaltrexone (Relistor) 450 mg (3 x 150 mg) PO DAILY metoprolol succinate ER 25 mg PO DAILY [nortriptyline 10 mg PO DAILY PRN] nut.tx.gluc intol,lf,soy-fiber 0.08-1.5 gram-kcal/mL (Glucerna 1.5 Shaheen) 1 ea PO BID ondansetron 4 mg PO Q6-8H PRN oxycodone 5 mg PO Q4-6H PRN rosuvastatin 5 mg PO DAILY simethicone (Gas Relief (simethicone)) 125 mg PO BID-QID PRN sucralfate 10 mL PO BID thiamine HCl (vitamin B1) 100 mg PO DAILY walker As directed HPI HPI 4mth f/up-km pt: Details: Radha is a 63-year-old female with past medical history of hypertension, hyperlipidemia, diabetes, CAD, RCA stent 2021 who presents for follow-up. Today she reports that she has been experiencing some fatigue and shortness of breath. Overall she states the symptoms have been unchanged since her last visit. She will noticed a random burning type sensation in her chest that she feels is related to her reflux and gastritis. When she takes her sucralfate she says it helps. She has no chest discomfort brought on by physical activity. This burning symptom is not new for her. No heart palpitations, lightheadedness, presyncope, syncope, falls. She reports being mostly sedentary. Has not been consistent with all her meds. She tells me she does not take the lisinopril or the atorvastatin. She states that she does not not like how they make her feel. She reports compliance with her other medications. [facility] Medical History Trigger finger, left ring finger Lupus Cirrhosis Antiphospholipid antibody syndrome Leg pain, right Abdominal bloating Arthritis Lupus POOL (dyspnea on exertion) Gallstones Cirrhosis Nonalcoholic steatohepatitis (SHARMA) Autoimmune hepatitis High blood pressure Fibromyalgia Diabetes Surgical History History of heart artery stent Hx of cholecystectomy Hx of endoscopy History of colonoscopy History of shoulder surgery History of cataract surgery (2010) History of repair of right rotator cuff (08/2011) History of cervical discectomy (07/2009) History of carpal tunnel release Family History Father History of diabetes mellitus, type II History of hypertension History of heart bypass surgery Mother History of diabetes mellitus, type II Brother History of gout Paternal Uncle Cancer Paternal Aunt Cancer Social History Household Members: None Housing: Apartment Are you a primary child care provider to a significant other at home: No 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 have 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) Alcohol intake: never Patient Tobacco Use Status: Never used Tobacco service: No Current occupational status: disabled Review of Systems Const All systems reviewed & are unremarkable except as noted in HPI and below Denies chills, Denies fatigue, Denies fever(s), Denies frequent falls, Denies weakness, Denies weight gain and Denies weight loss ENT Denies dizziness Card Reports chest pain, Reports chest pain at rest, Denies chest pain with activity, Denies leg edema, Denies lightheadedness, Denies palpitations, Denies dyspnea and Denies dyspnea on exertion Resp Denies cough, Denies dyspnea and Denies dyspnea on exertion GI Denies hematochezia Musc Denies abnormal gait, Denies muscle weakness, Denies numbness, Denies radiating pain into limb and Denies tingling Neuro Denies abnormal gait, Denies dizziness, Denies frequent falls, Denies numbness, Denies tingling and Denies weakness Endo Denies fatigue and Denies palpitations Physical Exam Vital Signs: Last Vital Signs Pulse 91 02/21/24 09:59 BP 124/60 02/21/24 09:59 BMI result Body Mass Index 24.6 Const General: cooperative, healthy appearing, comfortable and no acute distress Orientation/consciousness: patient oriented x3 Neck Neck: Yes normal visual inspection and Yes no JVD Resp Effort & Inspection: normal respiratory effort Auscultation: clear to auscultation bilaterally, no crackles, no rales, no rhonchi and no wheezes Cardio Rate: regular rate Rhythm: regular rhythm Heart sounds: S1 normal heart sound present, S2 normal heart sound present, no murmurs and no rubs Neuro General: patient oriented x3 Extrem General: Yes normal to inspection and No no pedal edema Psych Appearance: grossly normal Mental Status: mental status grossly normal Speech and movement: Normal speech and movement present Assessment & Plan Assessment & Plan (1) Coronary arteriosclerosis: Comment: right coronary stent - 11/2021 Code(s): I25.10 - Atherosclerotic heart disease of [place] coronary artery without angina pectoris Category: Medical Plan: Reports of exertional shortness of breath and a burning type chest discomfort. A nuclear stress test was normal. Due to persistent symptoms she underwent cardiac catheterization on 12/05/2021 showing mild left main stenosis, RCA proximal 95% stenosis and CANDIE was placed. She had improvement in her breathing following stent placement. She has continued to report some chest burning at times. She has GI issues including gastritis and reflux. She does follow with GI. A pharmacological nuclear stress test was done on 10/19/2022 for further evaluation showing normal myocardial perfusion imaging. No recent echo in our system. Today she reports that she does have some shortness of breath with activity but admits to being mostly sedentary. Overall her breathing has been stable. She continues to get periodic, random, burning sensation in her mid chest. She reports some improvement when she takes her sucralfate. Her symptom is not brought on by physical activity. This discomfort is most likely noncardiac in nature. Will continue with med management. Continue aspirin indefinitely, take with food. Continue statin however she admits to not taking it. Will change it to rosuvastatin which is a smaller pill a may provide better compliance. Heart rate 91 at this visit. With her discomfort will trial metoprolol XL 25 mg daily to see if this improves the discomfort in her chest at all. Will update echo to assess EF and regional wall motion. Signs and symptoms angina reviewed with her. Increase physical activity as tolerated. Cardiology follow-up in the office, 6 months, sooner if needed. We will call her with echo results. (2) S/P cardiac cath: Comment: 12/05/21 LM 30% stenosis, LAD and LCx mild luminal irregularities, RCA mid 95% stenosis and CANDIE placed Code(s): Z98.890 - Other specified postprocedural states Category: Surgical Plan: As above (3) S/P coronary artery stent placement: Comment: RCA Code(s): Z95.5 - Presence of coronary angioplasty implant and graft Category: Surgical Plan: As above (4) Hyperlipidemia: Code(s): E78.5 - Hyperlipidemia, unspecified Category: Medical Plan: Lagrange LDL goal less than 70 in patient with CAD and diabetes. She tells me she is not taking her atorvastatin. The pills are large and she does not like it makes her throat feel. Will stop atorvastatin and change her to rosuvastatin which is a smaller tablet. Once she is on it and compliant for 2 months a fasting lipid profile should be done. Plan Time spent on chart review, documentation, interview and assessment Orders: Orders Lipid Panel 2 Months I25.10 - Atherosclerotic heart disease of [place] coronary artery without angina pectoris CA echo transthoracic complete Today I25.10 - Atherosclerotic heart disease of [place] coronary artery without angina pectoris Medications: New rosuvastatin New cholesterol medication 5 mg PO DAILY 30 tabs 5RF metoprolol succinate ER New heart medication 25 mg PO DAILY 30 tabs 5RF Coding Level of Care Code Est Pt Level 4 (29609) Diagnoses Coronary arteriosclerosis I25.10 S/P cardiac cath Z98.890 S/P coronary artery stent placement Z95.5 Hyperlipidemia E78.5 Time Spent (min) 28
== END 2024-02-21 10:32 | disposition home or self-care (01) ==
PROVIDERS: PCP Internal Medicine; Visit Provider Nurse Practitioner Family
DX: I25.10 Atherosclerotic heart disease of native coronary artery without angina pectoris (principal); Z98.890 Other specified postprocedural states; Z95.5 Presence of coronary angioplasty implant and graft; E78.5 Hyperlipidemia, unspecified
CPT/HCPCS: 99214

== ENCOUNTER → 2024-02-21 09:48 | Outpatient (BNVA) | payer MEDICARE, MEDICAID, SELFPAY ==
[2022-03-27 09:43] VITALS: BP 128/60; BMI 27.1
== END ==
PROVIDERS: PCP Internal Medicine; Visit Provider Nurse Practitioner Family
DX: I25.10 Atherosclerotic heart disease of native coronary artery without angina pectoris (principal); I10 Essential (primary) hypertension; Z95.5 Presence of coronary angioplasty implant and graft; E78.5 Hyperlipidemia, unspecified; Z98.890 Other specified postprocedural states
CPT/HCPCS: 99212

== ENCOUNTER 2024-02-26 08:45 | Outpatient (AMB) | payer MEDICARE, MEDICAID, SELFPAY ==
[2022-03-27 09:43] VITALS: BP 128/60; BMI 27.1
[2024-02-24 13:26] VITALS: BP 128/60; BMI 27.1
--- NOTE | 2024-02-26 08:50 | A.OFFVIS_ITS ---
Vital Signs 02/26/24 08:54 Height 5 ft 2 in Weight 133 lb 9.602 oz BMI 24.4 BP 90/54 L Blood Pressure Location Rt brachial Position Sitting Pulse 61 Pulse Source Pulse Oximeter Pulse Oximetry (%) 99 Oxygen Delivery Method Room Air Intake Visit Reasons: Lupus/hand pain Intake Note: Patient presents for Lupus/hand pain. Allergies duloxetine [From CYMBALTA] Allergy (Intermediate, Verified 02/26/24 08:53) SHAKINESS Medication List - Last Reconciled 02/26/24 by Krista Bradley MD albuterol sulfate 90 mcg/actuation 90 mcg inhalation BID PRN ascorbic acid (vitamin C) (Vitamin C) 1,000 mg (2 x 500 mg) PO DAILY aspirin 81 mg PO DAILY azathioprine 75 mg (1.5 x 50 mg) PO DAILY blood sugar diagnostic (FreeStyle Lite Strips) As directed cholecalciferol (vitamin D3) 25 mcg PO DAILY diclofenac sodium 1% 2 grams topical QID empagliflozin (Jardiance) 25 mg PO DAILY estradiol 0.01%(0.1mg/gram) 0.01 appful vaginal DAILY fluticasone propionate 50 mcg/actuation 50 mcg intranasal DAILY PRN glipizide 10 mg PO DAILY lansoprazole 30 mg PO BID 30 days linaclotide (Linzess) 290 mcg PO DAILY lisinopril 2.5 mg PO DAILY loratadine 10 mg PO DAILY PRN lorazepam 0.5 mg PO QID PRN metformin ER 1,000 mg PO BID methylnaltrexone (Relistor) 450 mg (3 x 150 mg) PO DAILY metoprolol succinate ER 25 mg PO DAILY [nortriptyline 10 mg PO DAILY PRN] nut.tx.gluc intol,lf,soy-fiber 0.08-1.5 gram-kcal/mL (Glucerna 1.5 Shaheen) 1 ea PO BID ondansetron 4 mg PO Q6-8H PRN oxycodone 5 mg PO Q4-6H PRN rosuvastatin 5 mg PO DAILY simethicone (Gas Relief (simethicone)) 125 mg PO BID-QID PRN sucralfate 10 mL PO BID thiamine HCl (vitamin B1) 100 mg PO DAILY walker As directed HPI Comments Details: This is a 63-year-old female with lupus and autoimmune hepatitis who presents for follow-up. She is presently on Imuran 75 mg daily prescribed by Gastroenterology. She states that she has been having triggering and pain of her left 4th finger. She states that she had an injection for the same problem a few months ago with resolution. Has been having fatigue. Denies any fevers. Denies any recent illnesses. Denies any skin rashes. Denies any swollen joints [facility] Medical History Trigger finger, left ring finger Lupus Cirrhosis Antiphospholipid antibody syndrome Leg pain, right Abdominal bloating Arthritis Lupus POOL (dyspnea on exertion) Gallstones Cirrhosis Nonalcoholic steatohepatitis (SHARMA) Autoimmune hepatitis High blood pressure Fibromyalgia Diabetes Surgical History History of heart artery stent Hx of cholecystectomy Hx of endoscopy History of colonoscopy History of shoulder surgery History of cataract surgery (2010) History of repair of right rotator cuff (08/2011) History of cervical discectomy (07/2009) History of carpal tunnel release Family History Father History of diabetes mellitus, type II History of hypertension History of heart bypass surgery Mother History of diabetes mellitus, type II Brother History of gout Paternal Uncle Cancer Paternal Aunt Cancer Social History Household Members: None Housing: Apartment Are you a primary director of health care marketing to a significant other at home: No 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 have visiting nurse 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) Alcohol intake: never Patient Tobacco Use Status: Never used Tobacco service: No Current occupational status: disabled Review of Systems Const Reports fatigue Musc Reports myalgias, Reports arthralgias and Reports limited range of motion Endo Reports fatigue Physical Exam Vital Signs: Last Vital Signs Pulse 61 02/26/24 08:54 BP 90/54 L 02/26/24 08:54 Pulse Ox 99 02/26/24 08:54 Oxygen Delivery Method Room Air 02/26/24 08:54 BMI result Body Mass Index 24.4 Const General: cooperative, healthy appearing and comfortable Nutritional Appearance: average body habitus Orientation/consciousness: patient oriented x3 Limitations: no limitations HEENT Head: Yes normocephalic and Yes atraumatic Mouth: moist mucous membranes Resp Effort & Inspection: normal respiratory effort and able to speak in complete sentences Auscultation: clear to auscultation bilaterally Cardio Rate: regular rate Rhythm: regular rhythm Skin General skin exam: no rashes or lesions noted Neuro General: patient oriented x3 Extrem Other: Mild osteoarthritic changes of both hands with no active synovitis Left 4th finger triggering and tenderness at the flexor tendons Office Procedures Tendon Injection Tendon Injection Details: Patient's consent. The palm of the left hand was prepped with ChloraPrep and alcohol. Under topical ethyl chloride spray the [4th] flexor tendon sheath was injected with 20 mg of triamcinolone and 0.2 cc of 1% lidocaine. The patient tolerated the procedure without any acute complications. [id number] Tendon Sheath Injection All charges added?: Procedure code (CPT) selection complete Assessment & Plan Assessment & Plan (1) Lupus: Comment: dx ( autoimmune hepatitis, arthralgias ++ dsDNA intermittently low C3 and C4 +++ACL IgM ++ASMA) Code(s): M32.9 - Systemic lupus erythematosus, unspecified Category: Medical Plan: This is a 63-year-old female with history of SLE and chronic autoimmune rheumatic this will presents for follow-up. This is her 1st visit with me. Patient has been complaining of fatigue and her labs showing elevated ESR. Ds DNA remains elevated and C4 is low. She is on Imuran 75 mg p.o. daily prescribed by GI for her autoimmune hepatitis. I think patient needs an additional DMARD, per notes, patient could not tolerate hydroxychloroquine in the past. I think it is worth trying again. Discussed risks and benefits of hydroxychloroquine Start hydroxychloroquine 300 mg daily . If not tolerated, Benlysta can be considered Labs before next visit in 3 months (2) Antiphospholipid antibody positive: Comment: 2019 anti beta glycoprotein antibody positive as well No history of thromboses or miscarriages Code(s): R76.0 - Raised antibody titer Category: Medical Plan: On aspirin regularly. Follows up regularly Dermatology (3) Trigger finger, left ring finger: Code(s): M65.342 - Trigger finger, left ring finger Category: Medical Plan: Injected in clinic today. States that her blood sugar was 123 in the morning today. Advised patient to watch her blood sugar over the coming 2-3 days (4) Long-term use of hydroxychloroquine: Code(s): Z79.899 - Other halfway (current) drug therapy Category: Medical Plan: Discussed risk of retinopathy associated with hydroxychloroquine. Advised patient to make an appointment with presidential helicopter crew chief Dr. Peña Plan I spent 47 minutes reviewing patient's chart, evaluating patient, ordering diagnostic workup, counseling patient and documenting in the chart Orders: Orders Complement C3 3 Months M32.9 - Systemic lupus erythematosus, unspecified Complement C4 3 Months M32.9 - Systemic lupus erythematosus, unspecified C Reactive Protein 3 Months M32.9 - Systemic lupus erythematosus, unspecified Erythrocyte Sedimentation Rate 3 Months M32.9 - Systemic lupus erythematosus, unspecified UA w Microscopic 3 Months M32.9 - Systemic lupus erythematosus, unspecified Complete Blood Count Auto Diff 3 Months M32.9 - Systemic lupus erythematosus, unspecified Hepatitis A,B,C Profile 3 Months Z11.59 - Encounter for screening for other viral diseases Anti DNA DS Antibody 3 Months M32.9 - Systemic lupus erythematosus, unspecified Protein Creatinine Ratio, Ur 3 Months M32.9 - Systemic lupus erythematosus, unspecified Comprehensive Met. Panel 3 Months M32.9 - Systemic lupus erythematosus, unspecified T Spot TB 3 Months Z11.7 - Encounter for testing for latent tuberculosis infection AMB Tendon Injection Today M65.342 - Trigger finger, left ring finger Medications: New hydroxychloroquine 300 mg (1.5 x 200 mg) PO DAILY 135 tabs 1RF Coding Level of Care Code Est Pt Level 5 (18545) Complex EM visit Add On G2211 Diagnoses Lupus M32.9 Antiphospholipid antibody positive R76.0 Trigger finger, left ring finger M65.342 Long-term use of hydroxychloroquine Z79.899 CPT Codes Tendon Injection - Tendon Injection 1: [id number] Tendon Sheath Injection ([id number])
[2024-02-26 08:54] VITALS: BP 90/54; PULSE 61; O2SAT 99; BMI 24.4
== END 2024-02-26 09:30 | disposition home or self-care (01) ==
PROVIDERS: PCP Internal Medicine; Visit Provider Student in an Organized Health Care Education/Training Program
DX: M32.9 Systemic lupus erythematosus, unspecified (principal); R76.0 Raised antibody titer; M65.342 Trigger finger, left ring finger; Z79.899 Other long term (current) drug therapy
CPT/HCPCS: 20550; 99215

== ENCOUNTER → 2024-02-26 08:45 | Outpatient (BNVA) | payer MEDICARE, MEDICAID, SELFPAY ==
[2024-02-24 13:26] VITALS: BP 128/60; BMI 27.1
== END ==
PROVIDERS: PCP Internal Medicine; Visit Provider Student in an Organized Health Care Education/Training Program
DX: M32.9 Systemic lupus erythematosus, unspecified (principal); M65.342 Trigger finger, left ring finger; R76.0 Raised antibody titer; Z79.899 Other long term (current) drug therapy
CPT/HCPCS: 20550; 99212

== ENCOUNTER 2024-03-11 17:51 | Emergency (ER) | payer MEDICARE, MEDICAID, SELFPAY ==
[2024-02-24 13:26] VITALS: BP 128/60; BMI 27.1
--- NOTE | ~2024-03-11 | XR_ITS ---
EXAMINATION: XR HAND/WRIST, LEFT CLINICAL INFORMATION: Pain status-post fall. COMPARISON: Radiographs dated 07/16/2018. TECHNIQUE: PA, lateral, and oblique views of the left hand and wrist. FINDINGS: The bones and soft tissues are normal. No fracture. Alignment is anatomic. There is a slight ulnar positive variance. Joint spaces are maintained. No erosions or soft tissue calcifications. XR/XR hand wrist LT IMPRESSION: Normal radiographs of the hand and wrist. Electronically signed by: Sidney Oneal MD 03/11/2024 09:53 PM EDT RP
[2024-03-11 18:05] VITALS: BP 155/52; PULSE 71; RESP 19; TEMP 36.6; O2SAT 98; BMI 24.9
--- NOTE | 2024-03-11 18:08 | ED_ITS ---
HPI - General Adult General Chief complaint: Extremity Injury, Upper Stated complaint: LT arm pain s/p fall Time Seen by Provider: 03/11/24 22:58 Source: patient and RN notes reviewed Mode of arrival: ambulatory Limitations: no limitations History of Present Illness ED Provider: Emily Robison PA-C HPI narrative: This is a 63-year-old female, with a history of lupus, who presents emergency department with complaints of left arm pain status post mechanical fall which occurred 4 days. 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 She denies hitting her head or loss of consciousness. She states that she has had intermittent left hand, wrist, and shoulder pain. She previously had arthroscopic surgery in her bilateral shoulders. She denies any chest pain, shortness of breath. She is otherwise feeling well. No other complaints or concerns at this time. MD complaint: Left arm pain Onset (ago): day(s) Location: upper extremity Severity: moderate Quality: aching Pain Consistency: constant Relieving factors: none Exacerbating factors: none Associated symptoms: denies other symptoms Treatments prior to arrival: none Related Data Home Medications ?Medication ?Instructions ?Recorded ?Confirmed glipizide 10 mg tablet 10 mg PO DAILY 05/17/20 02/26/24 albuterol sulfate 90 mcg/actuation 90 mcg inhalation BID PRN 06/06/20 02/26/24 aerosol inhaler Shortness Of Breath fluticasone propionate 50 50 mcg intranasal DAILY PRN Nasal 06/06/20 02/26/24 mcg/actuation nasal Congestion spray,suspension loratadine 10 mg tablet 10 mg PO DAILY PRN Allergy Symptoms 06/07/20 02/26/24 lorazepam 0.5 mg tablet 0.5 mg PO QID PRN Anxiety 06/07/20 02/26/24 ondansetron 4 mg disintegrating 4 mg PO Q6-8H PRN Nausea 06/07/20 02/26/24 tablet oxycodone 5 mg tablet 5 mg PO Q4-6H PRN Pain 06/07/20 02/26/24 empagliflozin 25 mg tablet 25 mg PO DAILY 06/13/20 02/26/24 (Jardiance) nortriptyline 10 mg PO DAILY PRN Insomnia 12/05/20 02/26/24 blood sugar diagnostic (FreeStyle #10 ea 02/25/23 02/26/24 Lite Strips) cholecalciferol (vitamin D3) 25 25 mcg PO DAILY 02/25/23 02/26/24 mcg (1,000 unit) tablet estradiol 0.01% (0.1 mg/gram) 0.01 appful vaginal DAILY 02/25/23 02/26/24 vaginal cream lisinopril 2.5 mg tablet 2.5 mg PO DAILY 02/25/23 02/26/24 metformin 500 mg tablet,extended 1,000 mg PO BID 02/25/23 02/26/24 release 24 hr Previous Rx's ?Medication ?Instructions ?Recorded walker #1 ea 05/08/20 simethicone 125 mg capsule (Gas 125 mg PO BID-QID PRN abdominal 06/27/20 Relief (simethicone)) distention #20 caps aspirin 81 mg tablet,delayed 81 mg PO DAILY #30 tabs 12/27/20 release diclofenac sodium 1 % topical gel 2 g topical QID #100 grams 12/04/22 nutrition tx glu 1 ea PO BID #8,000 mL 06/03/23 intol,lac-free,soy-fiber 0.08 gram-1.5 kcal/mL liquid (Glucerna 1.5 Shaheen) ascorbic acid (vitamin C) 500 mg 1,000 mg (2 x 500 mg) PO DAILY 08/12/23 tablet (Vitamin C) #180 tabs methylnaltrexone 150 mg tablet 450 mg (3 x 150 mg) PO DAILY #90 10/15/23 (Relistor) tabs lansoprazole 30 mg capsule,delayed 30 mg PO BID 30 days #60 caps 11/13/23 release sucralfate 100 mg/mL oral 10 ml PO BID #1,000 mL 11/13/23 suspension azathioprine 50 mg tablet 75 mg (1.5 x 50 mg) PO DAILY #60 12/02/23 tabs thiamine HCl (vitamin B1) 100 mg 100 mg PO DAILY #90 tabs 12/03/23 tablet linaclotide 290 mcg capsule 290 mcg PO DAILY #30 caps 01/28/24 (Linzess) metoprolol succinate 25 mg 25 mg PO DAILY #30 tabs 02/21/24 tablet,extended release 24 hr rosuvastatin 5 mg tablet 5 mg PO DAILY #30 tabs 02/21/24 hydroxychloroquine 200 mg tablet 300 mg (1.5 x 200 mg) PO DAILY 02/26/24 #135 tabs acetaminophen 500 mg tablet 500 mg PO Q6H PRN pain #30 tabs 03/11/24 (Tylenol Extra Strength) Allergies Allergy/AdvReac Type Severity Reaction Status Date / Time duloxetine [From CYMBALTA] Allergy Intermediate SHAKINESS Verified 03/11/24 18:08 Review of Systems Review of Systems: Yes all other systems are reviewed and are negative Constitutional: Constitutional: Reports as per HPI [facility] Past Medical History Medical History Trigger finger, left ring finger Lupus Cirrhosis Antiphospholipid antibody syndrome Leg pain, right Abdominal bloating Arthritis Lupus POOL (dyspnea on exertion) Gallstones Cirrhosis Nonalcoholic steatohepatitis (SHARMA) Autoimmune hepatitis High blood pressure Fibromyalgia Diabetes Surgical History History of heart artery stent Hx of cholecystectomy Hx of endoscopy History of colonoscopy History of shoulder surgery History of cataract surgery (2010) History of repair of right rotator cuff (08/2011) History of cervical discectomy (07/2009) History of carpal tunnel release Family History Family History Father History of diabetes mellitus, type II History of hypertension History of heart bypass surgery Mother History of diabetes mellitus, type II Brother History of gout Paternal Uncle Cancer Paternal Aunt Cancer Social History Social History Household Members: None Housing: Apartment Are you a primary health care administrator to a significant other at home: No 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 have visiting nurse or other home services: No (case monitor) Alcohol intake: never Patient Tobacco Use Status: Never used Tobacco Advance Directives: No Advance Directives Information Provided: No Do you have a plan to hurt others: No Plan service: No Current occupational status: disabled Physical Exam ED Vital Signs: Vital Signs - 24 hr 03/11/24 18:05 03/11/24 23:50 Temperature 98 F 98 F Pulse Rate 71 71 Respiratory Rate 19 19 Blood Pressure 155/52 H 155/52 H Pulse Oximetry 98 98 Oxygen Delivery Method Room Air Room Air BMI result Body Mass Index 24.9 Const General: cooperative, comfortable and no acute distress Orientation/consciousness: patient oriented x3 Limitations: no limitations HENMT Head: Yes normal to inspection, Yes normocephalic and Yes atraumatic Ears: hearing grossly normal bilaterally General nose exam: Normal external nose present Face and sinus: Yes normal facial exam Mouth: Normal oral and palatal mucosa present, oropharynx normal and moist mucous membranes Throat: Yes posterior oropharynx normal Eyes General: appearance normal, both eyes and all related structures Eyelids: Yes eyelids normal Conjunctivae: conjunctivae normal Sclerae: sclerae normal Pupils: Equal, round and reactive pupils present EOM: EOMs intact bilaterally Neck Neck: Yes normal visual inspection, Yes full ROM and Yes no lymphadenopathy Lymphatic: no lymphadenopathy noted Chest Chest palpation & inspection: normal inspection of the chest Resp Effort & Inspection: normal respiratory effort and able to speak in complete sentences Auscultation: clear to auscultation bilaterally, no crackles, no rales, no rhonchi and no wheezes Cardio Rate: regular rate Rhythm: regular rhythm Heart sounds: S1 normal heart sound present and S2 normal heart sound present GI Inspection: Yes normal to inspection Skin General skin exam: no rashes or lesions noted Trauma: no lacerations or abrasions Wounds: no wounds Neuro General: patient oriented x3 and moves all extremities Cranial nerves: Yes Equal, round and reactive pupils present Extrem Other: Left hand, with no obvious bony deformity or swelling. She has tenderness palpation along the left thenar eminence. Able to make a fist, able to oppose thumb to all digits. Strong radial pulse. No open wounds or lacerations. Left elbow is nontender, with full range of motion. Left shoulder, with no bony deformity or swelling. tenderness palpation along the left AC joint. Able to abduct to approximately 100?, forward flexion to about 70?. Positive empty can test strong radial pulse. Capillary refill less than 2 seconds General: Yes normal to inspection Right upper extremity: normal to inspection Left upper extremity: normal to inspection Right lower extremity: normal to inspection Left lower extremity: normal to inspection Course Course Course Narrative: This is a Rapid Medical Examination (RME) performed by Betito Castellanos PA-C in triage. Full HPI, ROS, assessment and treatment plan per primary provider in the Main ED. 63 yo female here for eval of pain/ tingling in her left hand/ wrist, extending up the LUE s/p fall 4 days ago. reports losing her balance and catching herself on her bedroom dresser with her left hand/wrist. reports immediate shooting pain from hand/wrist up her LUE. denies fall to the ground. denies head strike or loc. no other injury or physical complaint. Plan: xr Medications Administered Discontinued Medications Generic Name Dose Route Start Last Admin Trade Name Fiona PRN Reason Stop Dose Admin Acetaminophen 650 mg 03/11/24 23:46 03/11/24 23:48 Acetaminophen 325 Mg Tablet PO 03/11/24 23:47 650 mg ONCE ONE Administration Medical Decision Making Medical Decision Making [facility] Narrative: This is a 63-year-old female, with a history of lupus, who presents emergency department with complaints of left wrist and hand pain status post mechanical fall which occurred 4 days ago. On arrival, patient slightly hypertensive at 155/52, all other vital signs within normal limits. She is speaking in full sentences under no acute distress. She has tenderness palpation along the left thenar eminence, with no bony abnormalities or change in range of motion. She does have tenderness palpation along the left AC joint, without any bony step- off or deformity. X-ray of the left hand and wrist was performed with no bony abnormality seen Differential Diagnosis Differential Diagnoses: The differential diagnosis associated with the presentation includes fx, sprain, strain, contusion Admission/Observation Consideration of admission/observation: Escalation of care including admission/observation considered Lab Data [facility] Lab Attestation statement: I reviewed the patient's lab results. Labs: Lab Results 03/11/24 Range/Units 21:44 POC Glucose 86 (60-115) mg/dL Radiology Impression Discussion of test interpretation with radiology: I have reviewed the radiologist's reading. Radiologist Impression: XR/XR hand wrist LT IMPRESSION: Normal radiographs of the hand and wrist. Electronically signed by: Sidney Oneal MD 03/11/2024 09:53 PM EDT RP Dictated By: Sidney Oneal MD XR/XR chest 2V IMPRESSION: No evidence of pneumonia. Electronically signed by: Maia George MD 02/24/2024 12:05 PM EDT RP Dictated By: Maia George MD Discharge Plan Discharge Clinical Impression: Arm pain, left, Contusion of left wrist Patient Disposition: Home, Self-Care Instructions: Wrist Injury (ED), Arm Pain (ED) Additional Instructions: You were seen in the emergency department after a fall. Your x-ray of your left wrist does not show any bony abnormalities. Please rest, ice, use splint for comfort. Alternate between ibuprofen and Tylenol as needed for pain and symptoms. Follow-up with the police specialist regarding your left wrist pain as well as left shoulder pain. If any new or worsening symptoms occur including but not limited to worsening pain, chest pain, shortness of breath, please seek emergent care. Prescriptions: New acetaminophen [Tylenol Extra Strength] 500 mg tablet 500 mg PO Q6H PRN (Reason: pain) Qty: 30 0RF No Action simethicone [Gas Relief (simethicone)] 125 mg capsule 125 mg PO BID-QID PRN (Reason: abdominal distention) Qty: 20 0RF aspirin 81 mg tablet,delayed release (DR/EC) 81 mg PO DAILY Qty: 30 5RF ascorbic acid (vitamin C) [Vitamin C] 500 mg tablet 1,000 mg PO DAILY Qty: 180 1RF Relistor 150 mg tablet 450 mg PO DAILY Qty: 90 1RF lansoprazole 30 mg capsule,delayed release(DR/EC) 30 mg PO BID 30 Days Qty: 60 2RF sucralfate 100 mg/mL suspension 10 ml PO BID Qty: 1000 2RF thiamine HCl (vitamin B1) 100 mg tablet 100 mg PO DAILY Qty: 90 1RF Linzess 290 mcg capsule 290 mcg PO DAILY Qty: 30 3RF lorazepam 0.5 mg tablet 0.5 mg PO QID PRN (Reason: Anxiety) ondansetron 4 mg tablet,disintegrating 4 mg PO Q6-8H PRN (Reason: Nausea) loratadine 10 mg Tablet 10 mg PO DAILY PRN (Reason: Allergy Symptoms) oxycodone 5 mg tablet 5 mg PO Q4-6H PRN (Reason: Pain) nortriptyline 10 mg PO DAILY PRN (Reason: Insomnia) (DME) shade Rendon See Rx Instructions .ROUTE .MEDSUPPLY Qty: 1 0RF Rx Instructions: As directed Jardiance 25 mg Tablet 25 mg PO DAILY diclofenac sodium 1 % gel 2 g topical QID Qty: 100 0RF Rx Instructions: apply to single elbow, wrist or hand; for hand includes palm/fingers/back of hand fluticasone propionate 50 mcg/actuation spray,suspension 50 mcg intranasal DAILY PRN (Reason: Nasal Congestion) albuterol sulfate 90 mcg/actuation HFA aerosol inhaler 90 mcg inhalation BID PRN (Reason: Shortness Of Breath) glipizide 10 mg tablet 10 mg PO DAILY lisinopril 2.5 mg tablet 2.5 mg PO DAILY (DME) FreeStyle Lite Strips Strip See Rx Instructions .ROUTE TID Qty: 10 Rx Instructions: As directed metformin 500 mg tablet extended release 24 hr 1,000 mg PO BID cholecalciferol (vitamin D3) 25 mcg (1,000 unit) tablet 25 mcg PO DAILY estradiol 0.01 % (0.1 mg/gram) cream 0.01 appful vaginal DAILY azathioprine 50 mg tablet 75 mg PO DAILY Qty: 60 1RF rosuvastatin 5 mg tablet 5 mg PO DAILY Qty: 30 5RF Rx Instructions: New cholesterol medication metoprolol succinate 25 mg tablet extended release 24 hr 25 mg PO DAILY Qty: 30 5RF Rx Instructions: New heart medication hydroxychloroquine 200 mg tablet 300 mg PO DAILY Qty: 135 1RF Glucerna 1.5 Shaheen 0.08-1.5 gram-kcal/mL liquid 1 ea PO BID Qty: 8000 3RF Referrals: [facility] [Provider Group] Interventions: ED Discharge Assessment Last Done: 03/11/24 23:50 Discharge Date/Time: 03/11/24 23:51 Print Language: Gabonese
[2024-03-11 21:49] LABS: Glucose, Whole Blood 86 mg/dL (60-115)
[2024-03-11] MEDS: Acetaminophen 325 MG TABLET 650 MG PO (23:48)
[2024-03-11 23:50] VITALS: BP 155/52; PULSE 71; RESP 19; TEMP 36.6; O2SAT 98
== END 2024-03-11 23:51 | disposition home or self-care (01) ==
PROVIDERS: Emergency Provider Emergency Medicine
DX: M79.602 Pain in left arm (principal); S60.212A Contusion of left wrist, initial encounter; W07.XXXA Fall from chair, initial encounter; Y93.E9 Activity, other interior property and clothing maintenance; Y92.039 Unspecified place in apartment as the place of occurrence of the external cause; Y99.9 Unspecified external cause status; E11.9 Type 2 diabetes mellitus without complications; E78.5 Hyperlipidemia, unspecified; M32.9 Systemic lupus erythematosus, unspecified; Z79.82 Long term (current) use of aspirin; Z79.84 Long term (current) use of oral hypoglycemic drugs; Z79.02 Long term (current) use of antithrombotics/antiplatelets
CPT/HCPCS: 73110; 73130; 82947; 99283; 99284

== ENCOUNTER 2024-03-20 10:38 | Outpatient (REF) | payer MEDICARE, MEDICAID, SELFPAY ==
[2024-02-24 13:26] VITALS: BP 128/60; BMI 27.1
[2024-03-20 11:02] LABS: MANUAL DIFF FLAG NO
[2024-03-20 11:45] LABS: Basophils Absolute Auto 0.1 X10*3/uL (0.0-0.2); Basophils Percent Auto 1.2 % (0-2); Eosinophils Absolute Auto 0.1 X10*3/uL (0.0-0.4); Eosinophils Percent Auto 2.6 % (0-4); Hematocrit 37.7 % (37.0-47.0); Hemoglobin 11.8 g/dl (12.0-16.0); Imm Gran Abs Auto 0.02 X10*3/uL (0.00-0.03); Imm Gran Pct Auto 0.5 % (0.0-0.4); Lymphocytes Absolute Auto 0.8 X10*3/uL (1.2-4.9); Lymphocytes Percent Auto 19.1 % (20-40); Mean Corpuscular HGB Conc 31.3 g/dl (31.0-35.0); Mean Corpuscular Hemoglobin 26.9 pg (27.0-33.0); Mean Corpuscular Volume 86.1 fL (80.0-98.0); Mean Platelet Volume 10.1 fL (9.4-12.3); Monocytes Absolute Auto 0.5 X10*3/uL (0.1-1.2); Monocytes Percent Auto 11.1 % (2-11); Neutrophils Absolute Auto 2.8 x10*3/uL (2.0-8.3); Neutrophils Percent Auto 65.5 % (45-73); Platelet Count 171 X10*3/uL (160-400); Red Blood Count 4.38 X10*6/uL (4.20-5.50); Red Cell Distribution Width 16.1 % (11.0-16.0); White Blood Count 4.2 X10*3/uL (4.8-10.8)
[2024-03-20 11:52] LABS: Estimated Average Glucose 157 mg/dL; Hemoglobin A1C 165.8147 umol/L; Hemoglobin A1c % 7.1 % (<6.0); Total Hemoglobin (HGBA1C) 3082.9775 umol/L
[2024-03-20 12:37] LABS: Alanine Aminotransferase 40 U/L (0-31); Albumin Level 3.9 g/dL (3.5-5.0); Alkaline Phosphatase 175 U/L (39-117); Anion Gap 11 (12-20); Aspartate Amino Transferase 63 U/L (5-31); Bilirubin Total 0.5 mg/dL (0.0-1.0); Blood Urea Nitrogen 9 mg/dL (9-16); Calcium 10.1 mg/dL (8.4-10.2); Carbon Dioxide 25 mmol/L (22-29); Chloride 106 mmol/L (96-108); Cholesterol 120 mg/dL (<200); Estimated Glomerular Filt Rate > 60; Glucose Random 144 mg/dL (60-115); HDL Cholesterol 45 mg/dL (>40); LDL Cholesterol Calculated 57 mg/dL (<100); Potassium 4.2 mmol/L (3.3-5.1); Sodium 138 mmol/L (135-145); Total Protein 9.7 g/dL (6.5-8.0); Triglycerides 94 mg/dL (<150)
[2024-03-20 13:00] LABS: Vitamin B12 461 pg/mL (200-900)
== END 2024-03-20 10:39 | disposition home or self-care (01) ==
LOC: HO.LAB 10:38
PROVIDERS: PCP Internal Medicine; Visit Provider Internal Medicine
DX: I10 Essential (primary) hypertension (principal); E11.9 Type 2 diabetes mellitus without complications; T38.3X5A Adverse effect of insulin and oral hypoglycemic [antidiabetic] drugs, initial encounter
CPT/HCPCS: 36415; 80053; 80061; 82607; 83036; 85025

== ENCOUNTER → 2024-03-24 09:39 | Outpatient (REF) | payer MEDICARE, MEDICAID, SELFPAY ==
[2024-02-24 13:26] VITALS: BP 128/60; BMI 27.1
--- NOTE | 2024-03-24 09:42 | CA_ITS ---
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 Study Quality: Adequate ECG Rhythm: Sinus Conclusions: - The left ventricular systolic function is normal. The calculated ejection fraction is 59% by biplane method. - No obvious valvular pathology seen on this study. Findings Left Ventricle Normal left ventricular cavity size. There is normal left ventricular wall thickness. The left ventricular systolic function is normal. The calculated ejection fraction is 59% by biplane method. There is no evidence of regional wall motion abnormalities. Diastolic function is normal for age. Right Ventricle Normal right ventricular cavity size and systolic function. Atria Both atria are normal in size. Aortic Valve There is a normal trileaflet aortic valve. There is no aortic valve stenosis. There is no aortic valve regurgitation. Mitral Valve The mitral valve appears normal. There is no mitral valve regurgitation. There is no mitral valve stenosis. Pulmonic Valve The pulmonic valve is likely normal. Tricuspid Valve Normal tricuspid valve structure. There is no tricuspid valve regurgitation. Tricuspid regurgitation envelope is inadequate for calculation of right ventricular systolic pressure. Great Vessels The asc aorta is normal in size. Venous The inferior vena cava is normal in size and collapses greater than 50% with inspiration. Pericardium/Pleural There is no evidence of pericardial effusion. Prior Study Comparison No significant change compared to prior study dated: 04/01/2019. Recommendations, Care & Conclusions No obvious valvular pathology seen on this study. Measurements 2D Linear Measurements IVSd: 0.89 0.6-0.9/0.6-1.0 cm LVIDd: 3.94 3.9-5.3/4.2-5.9 cm LVIDd Index: 2.45 2.4-3.2/2.2-3.1 cm/m2 LVIDs: 2.30 2.0-3.6 cm LVPWd: 0.66 0.7-1.1 cm LA Diam: 3.10 2.7-3.8/3.0-4.0 cm LAIDs Index: 1.93 1.5-2.3 cm/m2 LV Mass: 108.67 67-162/88-224 g LV Mass Index: 67.49 43-95/49-115 g/m2 LVOT Diam: 2.00 3.0+(-)1.3 cm 2D Systolic Function EF 4C: 53.80 >55% EF 2C: 63.00 >55% EF BiP: 58.80 >55% Mitral Valve MV Pk E: 0.70 MV PK A: 0.74 MV Decel Time: 221.00 E/A: 1.00 E'Lateral: 8.70 E'Medial: 4.57 E/E' Med: 15.40 E/E' Lat: 8.10 PHT: 65.00 MVA PHT: 3.38 Decel [place]: 3.18 Aortic Valve AoV Pk Blayne: 1.04 AoV Pk Grad: 4.00 MARY: 2.82 LVOT LVOT Pk Blayne: 0.93 LVOT Mn Blayne: 0.69 LVOT VTI: 0.19 LVOT Pk Grad: 3.00 LVOT Mn Grad: 2.00 LVOT Diam: 2.00 LVOT Area: 3.14 Diastolic Function MV Pk E: 0.70 MV Pk A: 0.74 E/A: 1.00 E'Medial: 4.57 E/E' Med: 15.40 E' Laterial: 8.70 E/E' Lat: 8.10 Right Ventricle TAPSE (mm): 19.40 TVS' Blayne: 10.90 Tricuspid Valve RA Press: 3.00 Great Vessels Aorta Sinus of Valsalva: 3.00 2.0-3.5 cm Ao Asc: 3.10 2.1-3.4 cm Pulmonary Valve PV Pk Blayne: 0.79 Peak PV Grad: 2.00 Updated in Other Vendor System with Status of Final Charlie Goldman MD electronically signed on 03/25/2024 4:06:07 PM with status of Final
== END ==
LOC: HO.CARD 09:39
PROVIDERS: PCP Internal Medicine; Visit Provider Nurse Practitioner Family
DX: I25.10 Atherosclerotic heart disease of native coronary artery without angina pectoris (principal)
CPT/HCPCS: 93306

== ENCOUNTER → 2024-03-24 09:42 | Outpatient (BNV) | payer MEDICARE, MEDICAID, SELFPAY ==
[2024-02-24 13:26] VITALS: BP 128/60; BMI 27.1
== END ==
PROVIDERS: PCP Internal Medicine; Visit Provider Internal Medicine
DX: I25.10 Atherosclerotic heart disease of native coronary artery without angina pectoris (principal)
CPT/HCPCS: 93306

== ENCOUNTER 2024-03-25 10:53 | Outpatient (REF) | payer MEDICARE, MEDICAID, SELFPAY ==
[2024-02-24 13:26] VITALS: BP 128/60; BMI 27.1
--- NOTE | ~2024-03-25 | XR_ITS ---
EXAMINATION: XR SHOULDER LEFT 3 VIEWS CLINICAL INFORMATION: Pain in left shoulder M25.512. COMPARISON: XR Left shoulder 05/19/2018 TECHNIQUE: Three views of the left shoulder. FINDINGS: No acute fracture or dislocation. Coracoclavicular distance measures approximately 10 mm, slightly less prominent as compared to previous. Glenohumeral joint space is maintained. Small inferior glenoid spur. No abnormal soft tissue calcification. No suspicious findings in the visualized lung. XR/XR shoulder LT min 2V IMPRESSION: No radiographic evidence of acute osseous abnormality. Study is assigned/presented for dictation on May 26, 2024 Electronically signed by: Fermin Her MD 05/26/2024 01:52 PM EST
== END 2024-03-25 10:54 | disposition home or self-care (01) ==
LOC: HO.HOSX 10:53
DX: M25.512 Pain in left shoulder (principal); M75.102 Unspecified rotator cuff tear or rupture of left shoulder, not specified as traumatic; R20.0 Anesthesia of skin; R20.2 Paresthesia of skin
CPT/HCPCS: 73030; 99212

== ENCOUNTER 2024-03-25 10:53 | Outpatient (AMB) | payer MEDICARE, MEDICAID, SELFPAY ==
[2024-02-24 13:26] VITALS: BP 128/60; BMI 27.1
--- NOTE | 2024-03-25 11:15 | MHC.OFFVIS ---
Vital Signs 03/25/24 11:16 Height 5 ft 2 in Weight 136 lb BMI 24.9 Handedness Left Intake Visit Reasons: NewProb- ED f/u left wrist and hand pain Intake Note: Radha is a 63 year old right hand dominant female who presents today as a new patient for an ED follow up of her left wrist injury s/p fall DOI: 03/07/2024. Patient reports she was trying to spray her ceiling while standing on a chair when she tripped and fell forward landing on outstretched left hand. Patient reports she has intermittent pain and burning that runs from her left shoulder down to her wrist. She expresses she has no strength in the left hand. Cracking noises with movement of the left wrist. Complaints of numbness at the tip of her 5th digit of left hand. She is having complaints of left shoulder pain from this injury as well. Tylenol and ibuprofen do not offer relief. Hx of DM. Hx of left ring finger injection in [facility]. Hx of left Rotator Cuff Repair in [facility] in 2011 or 2012 Manager Equipment Required: Yes Manager Equipment Language: Hull Sorter Name: [id number] Allergies duloxetine [From CYMBALTA] Allergy (Intermediate, Verified 03/25/24 11:22) SHAKINESS HPI HPI NewProb- ED f/u left wrist and hand pain: Details: Patient is a 63-year-old female who presents for ED follow-up of left wrist, hand, and shoulder pain, stemming from a fall on an outstretched hand, date of injury 03/07/2024. On that date, patient reports that she tripped and fell, attempted to catch herself with her left hand and arm, and landed on her hand and wrist. Since then, she has been experiencing significant discomfort in the left hand and wrist, as well as experiencing pain in the left shoulder that radiates down to the elbow, wrist, and hand. The patient also reports that she has noticed intermittent numbness and tingling of the left small finger since her injury. Patient denies any numbness or tingling of any of the other digits of the left upper extremity. Patient states that Tylenol and ibuprofen have provided her with minimal relief. No other acute complaints or concerns at this time. [facility] Medical History Trigger finger, left ring finger Lupus Cirrhosis Antiphospholipid antibody syndrome Leg pain, right Abdominal bloating Arthritis Lupus POOL (dyspnea on exertion) Gallstones Cirrhosis Nonalcoholic steatohepatitis (SHARMA) Autoimmune hepatitis High blood pressure Fibromyalgia Diabetes Surgical History History of heart artery stent Hx of cholecystectomy Hx of endoscopy History of colonoscopy History of shoulder surgery History of cataract surgery (2010) History of repair of right rotator cuff (08/2011) History of cervical discectomy (07/2009) History of carpal tunnel release Family History Father History of diabetes mellitus, type II History of hypertension History of heart bypass surgery Mother History of diabetes mellitus, type II Brother History of gout Paternal Uncle Cancer Paternal Aunt Cancer Social History Household Members: None Housing: Apartment Are you a primary transition of care specialist to a significant other at home: No 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 have visiting nurse 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 Neuro: Diminished sensation of the tip of the left small finger at this time Normal sensation of the tips all other digits of the left hand at this time Vascular: Cap refill brisk Pain: Patient reports diffuse tenderness to palpation about the left shoulder, worst on the anterior aspect over the distal clavicle and AC joint Patient reports no tenderness to the medial or lateral epicondyles of the left elbow No tenderness to palpation anywhere in the left hand or wrist ROM: Patient was able to forward flex bilateral shoulders to approximately 90 degrees Patient is able to externally rotate bilateral shoulders to approximately 60 degrees without difficulty Patient is able to flex the left elbow to approximately 150 degrees and extend to 0 degrees without difficulty Patient is able to make a closed fist and extend all digits of the left hand fully without difficulty Skin: No lacerations or abrasions. General: No ecchymosis, erythema, or evidence of infection. Psych: Appears grossly normal Affect normal Attitude cooperative Results Reviewed Results Reviewed: X-rays obtained in the office today and independently reviewed by me, Ethan Rivas PA-C, demonstrate no fracture or acute bony abnormality of the left shoulder. However, there is noted to be some evidence of mild osteoarthritis of the glenohumeral joint and moderate arthritis of the AC joint of the left shoulder Assessment & Plan Assessment & Plan (1) Painful arc syndrome of left shoulder: Code(s): M75.102 - Unspecified rotator cuff tear or rupture of left shoulder, not specified as traumatic Category: Medical (2) Numbness and tingling of left hand: Code(s): R20.0 - Anesthesia of skin; R20.2 - Paresthesia of skin Category: Medical Plan 1. Painful arc syndrome of left shoulder 2. AC joint osteoarthritis of left shoulder Patient is educated about these conditions in the treatment options available After discussion of treatment options, namely physical therapy, injections, or further imaging such as MRI, the patient would like to proceed with physical therapy to see if this could give her relief of her symptoms without need for further intervention Patient was referred to physical therapy for range of motion and strengthening of the left shoulder in the setting of painful arc syndrome Patient is educated that if after 6-8 weeks of physical therapy she is not experiencing good relief, she should call our office for further evaluation and discussion of other treatment options Patient is amenable to this plan 3. Numbness and tingling of the small finger of the left hand Symptoms intermittent, but daily, worse at night At this time, patient is referred for EMG and nerve conduction study to assess the health of the ulnar nerve of the left upper extremity Patient will follow-up after EMG and nerve conduction study for results review and discussion of further treatment options if indicated Patient is amenable to this plan Patient will follow-up after EMG and nerve conduction study, sooner any acute concerns Orders: Orders PT Evaluation and Treatment Today M75.102 - Unspecified rotator cuff tear or rupture of left shoulder, not specified as traumatic XR shoulder LT min 2V Today M25.512 - Pain in left shoulder NE nerve conduction velocity Today R20.0 - Anesthesia of skin, R20.2 - Paresthesia of skin NE electromyogram (EMG) Today R20.0 - Anesthesia of skin, R20.2 - Paresthesia of skin Coding Level of Care Code Est Pt Level 3 (18897) Diagnoses Painful arc syndrome of left shoulder M75.102 Numbness and tingling of left hand R20.0; R20.2
[2024-03-25 11:16] VITALS: BMI 24.9
== END 2024-03-25 12:11 | disposition home or self-care (01) ==
LOC: HO.HOS 10:53
DX: M75.102 Unspecified rotator cuff tear or rupture of left shoulder, not specified as traumatic (principal); R20.0 Anesthesia of skin; R20.2 Paresthesia of skin
CPT/HCPCS: 99213

== ENCOUNTER 2024-04-03 11:07 | Outpatient (AMB) | payer MEDICARE, MEDICAID, SELFPAY ==
[2022-03-27 09:43] VITALS: BP 128/60; BMI 27.1
[2024-02-24 13:26] VITALS: BP 128/60; BMI 27.1
--- NOTE | 2024-04-03 11:10 | MHC.OFFVIS ---
Vital Signs 04/03/24 11:12 Height 5 ft 2 in Weight 132 lb 4.438 oz BMI 24.2 BP 125/65 Blood Pressure Location Lt brachial Position Sitting Pulse 85 Intake Visit Reasons: 4 months follow up Intake Note: Radha presents in the office as a 4 month follow up CC: She states that she feels okay but she is losing weight. She is not trying to but states that she is eating less. She still has the constipation. Technical Analyst Required: No Allergies duloxetine [From CYMBALTA] Allergy (Intermediate, Verified 04/03/24 11:12) SHAKINESS HPI HPI 4 months follow up: Details: 63 yr old f here for f/u for AIH RECAP- index visit 04/2019 she was diagnosed with AIH and had been on imuran for 2 yrs (50 mg) but was then changed to 6 tabs MTX weekly and folic acid daily, after imuran stopped but this was recommenced and the MTX stopped due to SE and rising LFT she was dx based on lab work per her report she had liver bx ordered by her ID specialist (she was seeing for assessment of hep c but she doesn;t have it) she had pain since liver bx (02/2019) but does admit maybe it was there before no vomiting but occ nausea sometimes has constipation, which exacerbates her abdo pain mentioned above--stool was hard, and she has to push appetite is not so good, can't say why weight was going down she had been having constipation, on oxycodone 10 mg daily on prednisone for lupus she was given movantik for opiate induced constipation and pentoxyfilin for possible SHARMA she was referred to Dr Desai for gallstones causing abdo pain, and had cholecystectomy 05/2020 h pylori f/u testing has been negative TESTS: she has abn AST/ALT on and off for last several years on review of [facility] 02/2019--normal LFT: 12/2018--normal, LFT 06/25-2019 mild AST, ALT elevation LFT: 09/2019--AST36, ALT 42, alk phos--103, bili 0.4 LFT- 11/2019- bili-nml, AST-37, ALT-39, alk phos- 92 LFT 12/2019-- AST-42,ALT,40, GGT 109, alk phos--nml, bili 0.6 HEAVEN 1:1280 ds DNA--pos LFT- 04/19/2020--AST94, ALT 87, alk phos 148, bili 0.5 LFT 08/2020--nml, protein high, Ig levels high, SPEP neg LFT 12/16-- bili 5, AST 96, ALT 239 ( Imuran had been stopped due to v high levels of 6 TG and ^ MMP -->39359) 6 TG <50, 6 MMp 1516 LFT 11/06/23 bili-0.4, AST 44, ALT 27, alk florinda 176, (INR from 08/17--1.0) vitamin A level had been low--improved with replacement BIOPSY: liver bx with grade 1, stage 4 cirrhosis, mixed macro and microvesicular steatosis, and background steatohepatitis IMAGING: MRI 05/18-- adenitis, cirrhosis, no mass lesions, few LNs Upper GI series: moderate GERD< nml stomach and duodenum US 11/2021- cirrhosis, no mass GES- 2021- nml EGD/colonoscopy- 04/2021-- esophagitis, gastritis, h pylori noted, x 1Ta removed, MRI 03/2021-- nodular liver, venous collaterals, MRI 08/2020--stable LN, liver with borderline steatosis, no mass lesions MRI 05/2020--upper abdo LN--stable, cirrhosis of liver noted CT 12/2019--liver calcifications, retroperitoneal LNs, gallstones u/s 10/2019--gallstones, adenomyomatosis, F3-4 elastography u/s 11/2018--coarse liver, no masses, CT 2017--mildly enalrged LN, hepatic granulomas, central mesenteric stranding EGD 04/2019--reflux, no varices EGD 10/17: no varices, patulous LEs, possible gastroparesis -balloon dilation of UES INTERIM: she has joint pains she has poor appetite she saw rheum and commenced on plaquenil but she wants to hold on it no nausea or vomiting apetite is fair -one meal a day weight going down GES: slightly fast , 1% by 4 hrs EXAM: GENERAL: The patient is well developed and nontoxic. VITAL SIGNS:see workflow HEENT: Nonicteric sclerae, PERRLA, EOMI. Oropharynx clear. Moist mucous membranes. Conjunctivae appear well perfused. No thyroid mass. CHEST: Chest wall is nontender. HEART: Regular rate and rhythm without murmurs. LUNGS: Clear to auscultation bilaterally. ABDOMEN: Soft, positive bowel sounds, mild tender RUQ, no organomegaly, lipoma felt SKIN: No rash, no excessive bruising, petechiae, or purpura. NEUROLOGIC: Cranial nerves II-XII intact without motor/sensory deficit. joints: tender both hands Assessments 1. Cirrhosis of liver-suspected from combination of AIH and SHARMA, SLE--on imuran 75 mg, 2. Gallstones AND ADENOMYOMATOSIS, s/p cholecystectomy by Dr Desai 3. constipation-opiate related with bloating, maybe causing gastroparesis 4. weight loss, possibly from uncontrolled inflamamtion and SLE PLAN: 1/ CT A/P for further assessment, hold metformin day before and after CT scan 2/ add budesonide 9 mg, maybe stop imuran at further date PFSH Medical History Trigger finger, left ring finger Lupus Cirrhosis Antiphospholipid antibody syndrome Leg pain, right Abdominal bloating Arthritis Lupus POOL (dyspnea on exertion) Gallstones Cirrhosis Nonalcoholic steatohepatitis (SHARMA) Autoimmune hepatitis High blood pressure Fibromyalgia Diabetes Surgical History History of heart artery stent Hx of cholecystectomy Hx of endoscopy History of colonoscopy History of shoulder surgery History of cataract surgery (2010) History of repair of right rotator cuff (08/2011) History of cervical discectomy (07/2009) History of carpal tunnel release Family History Father History of diabetes mellitus, type II History of hypertension History of heart bypass surgery Mother History of diabetes mellitus, type II Brother History of gout Paternal Uncle Cancer Paternal Aunt Cancer Social History Household Members: None Housing: Apartment Are you a primary career and technology education teacher to a significant other at home: No 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 Positive antismooth muscle antibody. Treated with azathioprine. Code(s): K75.4 - Autoimmune hepatitis Category: Medical Plan: see above (2) Malnutrition: Code(s): E46 - Unspecified protein-calorie malnutrition Category: Medical Plan: see above Orders: Orders Protein Electrophoresis, Serum Today K75.4 - Autoimmune hepatitis Vitamin B12 and Folate Today E46 - Unspecified protein-calorie malnutrition, K75.4 - Autoimmune hepatitis Vitamin D 25-OH Total Today E46 - Unspecified protein-calorie malnutrition, K75.4 - Autoimmune hepatitis CT abdomen pelvis w IV con Today R63.4 - Abnormal weight loss Protein Electrophoresis,Ran Ur Today K75.4 - Autoimmune hepatitis Vitamin A Today E46 - Unspecified protein-calorie malnutrition, K75.4 - Autoimmune hepatitis Vitamin B1 Today E46 - Unspecified protein-calorie malnutrition, K75.4 - Autoimmune hepatitis Vitamin C Today E46 - Unspecified protein-calorie malnutrition, K75.4 - Autoimmune hepatitis Vitamin B3 (Niacin) Today E46 - Unspecified protein-calorie malnutrition, K75.4 - Autoimmune hepatitis Vitamin B5 (Pantothenic Acid) Today E46 - Unspecified protein-calorie malnutrition, K75.4 - Autoimmune hepatitis Vitamin B6 Today E46 - Unspecified protein-calorie malnutrition, K75.4 - Autoimmune hepatitis Medications: New budesonide DR-ER 9 mg (3 x 3 mg) PO DAILY 90 ea 0RF Coding Level of Care Code Est Pt Level 4 (33478) Diagnoses Chronic autoimmune hepatitis K75.4 Malnutrition E46
[2024-04-03 11:12] VITALS: BP 125/65; PULSE 85; BMI 24.2
== END 2024-04-03 12:01 | disposition home or self-care (01) ==
PROVIDERS: PCP Internal Medicine; Visit Provider Internal Medicine Gastroenterology
DX: K75.4 Autoimmune hepatitis (principal); E46 Unspecified protein-calorie malnutrition
CPT/HCPCS: 99214

== ENCOUNTER 2024-04-03 11:07 | Outpatient (REF) | payer MEDICARE, MEDICAID, SELFPAY ==
[2024-02-24 13:26] VITALS: BP 128/60; BMI 27.1
[2024-04-03 12:53] LABS: Vitamin D 25-OH Total 36.3 ng/mL (>30)
[2024-04-03 14:14] LABS: Folate 13.4 ng/mL (> or = 4.0); Vitamin B12 464 pg/mL (200-900)
[2024-04-06 12:43] LABS: Prot Elec - Albumin 4.2 g/dL (3.8-4.8); Prot Elec - Alpha1 0.3 g/dL (0.2-0.3); Prot Elec - Alpha2 0.8 g/dL (0.5-0.9); Prot Elec - Beta 1 0.7 g/dL (0.4-0.6); Prot Elec - Beta 2 0.5 g/dL (0.2-0.5); Prot Elec - Gamma 3.3 g/dL (0.8-1.7); Prot Elec - Total Protein 9.8 g/dL (6.1-8.1)
[2024-04-07 09:43] LABS: PEU-Protein Creat Ratio Rand 0.152 (0.024-0.184); PEU-Rand. Prot/Creat Ratio 152 mg/g creat (24-184); PEU-Random Ur. Gamma Globulin 0 %; PEU-Random Urine A1 Globulin 0 %; PEU-Random Urine A2 Globulin 0 %; PEU-Random Urine Albumin 100 %; PEU-Random Urine Beta Globulin 0 %; PEU-Random Urine Creatinine 33 mg/dL (20-275); PEU-Random Urine Protein 5 mg/dL (5-24)
[2024-04-08 23:18] LABS: Vitamin A 42 mcg/dL (38-98)
[2024-04-09 06:03] LABS: Vitamin C 0.9 mg/dL (0.3-2.7)
[2024-04-10 16:23] LABS: Vitamin B1 44 nmol/L (8-30); Vitamin B6 3.7 ng/mL (2.1-21.7)
[2024-04-11 15:28] LABS: Nicotinamide <20 ng/mL (see note); Vit B3 - Nicotinic Acid <20 ng/mL (see note); Vitamin B5 (Pantothenic Acid) <=40 ng/mL (<275)
== END 2024-04-03 11:08 | disposition home or self-care (01) ==
LOC: HO.LAB 11:07
PROVIDERS: PCP Internal Medicine; Visit Provider Internal Medicine Gastroenterology
DX: K75.4 Autoimmune hepatitis (principal); E46 Unspecified protein-calorie malnutrition
CPT/HCPCS: 82180; 82306; 82570; 82607; 82746; 84156; 84165; 84166; 84207; 84425; 84590; 84591; 99212

== ENCOUNTER 2024-04-27 09:56 | Outpatient (REF) | payer MEDICARE, MEDICAID, SELFPAY ==
[2024-02-24 13:26] VITALS: BP 128/60; BMI 27.1
[2024-04-27 11:20] LABS: Appearance Urine Clear; Color Urine Yellow; Glucose Urine UA >=1000 mg/dL (Negative); Leukocyte Esterase Urine Negative (Negative); Nitrite Urine Positive (Negative); PH 5.5 (5.0-9.0); Specific Gravity - Urine 1.025 (1.005-1.025); UMIC TRIGGER UACC YES; Urine Blood Negative (Negative); Urine Ketones Negative (Negative); Urine Protein Negative (Neg-Trace)
[2024-04-27 11:27] LABS: Bacteria Urine 4+ (None Seen); Hyaline Casts Urine 0-2 /LPF (0-2); RBC Urine 0-2 /HPF (0-2); Squamous Epithelial Cell Urine 0-2 /HPF (0-2); UACC Culture Trigger YES
[2024-04-27 11:27] LABS: Alanine Aminotransferase 43 U/L (0-31); Albumin Level 3.9 g/dL (3.5-5.0); Alkaline Phosphatase 186 U/L (39-117); Anion Gap 11 (12-20); Aspartate Amino Transferase 61 U/L (5-31); Bilirubin Total 0.4 mg/dL (0.0-1.0); Blood Urea Nitrogen 12 mg/dL (9-16); Calcium 9.7 mg/dL (8.4-10.2); Carbon Dioxide 27 mmol/L (22-29); Chloride 105 mmol/L (96-108); Estimated Glomerular Filt Rate > 60; Glucose Random 162 mg/dL (60-115); Potassium 4.8 mmol/L (3.3-5.1); Sodium 138 mmol/L (135-145); Total Protein 9.6 g/dL (6.5-8.0)
== END 2024-04-27 09:57 | disposition home or self-care (01) ==
LOC: HO.LAB 09:56
PROVIDERS: PCP Internal Medicine; Visit Provider Internal Medicine
DX: R35.1 Nocturia (principal); E11.9 Type 2 diabetes mellitus without complications; I10 Essential (primary) hypertension
CPT/HCPCS: 36415; 80053; 81001; 81003; 87086; 87088; 87186

== ENCOUNTER 2024-05-28 10:28 | Outpatient (REF) | payer MEDICARE, MEDICAID, SELFPAY ==
[2024-02-24 13:26] VITALS: BP 128/60; BMI 27.1
[2024-05-28 10:53] LABS: MANUAL DIFF FLAG NO
[2024-05-28 11:19] LABS: Basophils Percent Auto 0.8 % (0-2); Eosinophils Absolute Auto 0.1 X10*3/uL (0.0-0.4); Eosinophils Percent Auto 2.2 % (0-4); Hemoglobin 12.7 g/dl (12.0-16.0); Imm Gran Abs Auto 0.01 X10*3/uL (0.00-0.03); Imm Gran Pct Auto 0.2 % (0.0-0.4); Lymphocytes Percent Auto 20.4 % (20-40); Mean Corpuscular Hemoglobin 27.5 pg (27.0-33.0); Mean Corpuscular Volume 88.7 fL (80.0-98.0); Monocytes Absolute Auto 0.4 X10*3/uL (0.1-1.2); Monocytes Percent Auto 7.1 % (2-11); Neutrophils Absolute Auto 3.4 x10*3/uL (2.0-8.3); Neutrophils Percent Auto 69.3 % (45-73); Platelet Count 195 X10*3/uL (160-400); Red Blood Count 4.62 X10*6/uL (4.20-5.50); Red Cell Distribution Width 15.7 % (11.0-16.0)
[2024-05-28 11:40] LABS: Appearance Urine Clear; Color Urine Yellow; Glucose Urine UA >=1000 mg/dL (Negative); Leukocyte Esterase Urine Negative (Negative); Nitrite Urine Negative (Negative); Specific Gravity - Urine 1.025 (1.005-1.025); UMIC TRIGGER UA YES; Urine Blood Negative (Negative); Urine Ketones Negative (Negative); Urine Protein Negative (Neg-Trace)
[2024-05-28 11:43] LABS: Bacteria Urine None Seen (None Seen); Hyaline Casts Urine 0-2 /LPF (0-2); RBC Urine 0-2 /HPF (0-2); WBC Urine 0-5 /HPF (0-5)
[2024-05-28 11:54] LABS: Alanine Aminotransferase 55 U/L (0-31); Albumin Level 4.1 g/dL (3.5-5.0); Alkaline Phosphatase 177 U/L (39-117); Anion Gap 10 (12-20); Aspartate Amino Transferase 57 U/L (5-31); Bilirubin Total 0.4 mg/dL (0.0-1.0); Blood Urea Nitrogen 8 mg/dL (9-16); C Reactive Protein 0.66 mg/dL (< or = 0.50); Calcium 9.5 mg/dL (8.4-10.2); Carbon Dioxide 28 mmol/L (22-29); Chloride 103 mmol/L (96-108); Estimated Glomerular Filt Rate > 60; Glucose Random 166 mg/dL (60-115); Potassium 4.2 mmol/L (3.3-5.1); Sodium 137 mmol/L (135-145)
[2024-05-28 12:02] LABS: Erythrocyte Sedimentation Rate 67 MM/HR (0-20)
[2024-05-28 12:06] LABS: HBS Num1 1.94 mIU/mL (0-7.99); HBc Num1 0.14 S/CO (0.00-0.79); HBsAGNum1 0.36 S/CO (0.00-0.99); Hepatitis A Antibody IgM 0.37 Index (0-0.79); Hepatitis B Core Antibody Nonreactive (Nonreactive); Hepatitis B Surface Antigen Negative (Negative); ~Hepatitis A Antibody IgM Nonreactive (Nonreactive); ~Hepatitis B Surface Antibody NONREACTIVE (Nonreactive); ~Hepatitis C Antibody Nonreactive (Nonreactive)
[2024-05-28 12:13] LABS: Creatinine Urine 46.22 mg/dL; Total Protein Urine Random < 7 mg/dL (<12)
[2024-05-29 13:23] LABS: Complement C3 168 mg/dL (83-193)
[2024-05-29 21:29] LABS: Anti DNA DS Antibody 75 IU/mL
[2024-05-31 03:53] LABS: TS Negative Control Passed; TS Panel A 0; TS Panel B 0; TS Positive Control Passed; TSpotTB Negative (Negative)
== END 2024-05-28 10:29 | disposition home or self-care (01) ==
LOC: HO.LAB 10:28
PROVIDERS: PCP Internal Medicine; Visit Provider Student in an Organized Health Care Education/Training Program
DX: M32.9 Systemic lupus erythematosus, unspecified (principal); Z11.59 Encounter for screening for other viral diseases; Z11.7 Encounter for testing for latent tuberculosis infection
CPT/HCPCS: 36415; 80053; 81001; 82570; 84156; 85025; 85652; 86140; 86160; 86225; 86481; 86704; 86706; 86709; 86803; 87340

== ENCOUNTER 2024-06-02 12:18 | Outpatient (AMB) | payer MEDICARE, MEDICAID, SELFPAY ==
[2024-02-24 13:26] VITALS: BP 128/60; BMI 27.1
--- NOTE | 2024-06-02 12:41 | MHC.OFFVIS ---
Vital Signs 06/02/24 12:44 Height 5 ft 2 in Weight 139 lb 5.314 oz BMI 25.5 BP 116/52 L Blood Pressure Location Rt brachial Position Sitting Pulse 77 Pulse Source Pulse Oximeter Pulse Oximetry (%) 98 Oxygen Delivery Method Room Air Intake Visit Reasons: SLE Intake Note: Patient presents for SLE. Allergies duloxetine [From CYMBALTA] Allergy (Intermediate, Verified 06/02/24 12:44) SHAKINESS Medication List - Last Reconciled 06/02/24 by Krista Bradley MD acetaminophen (Tylenol Extra Strength) 500 mg PO Q6H PRN albuterol sulfate 90 mcg/actuation 90 mcg inhalation BID PRN ascorbic acid (vitamin C) (Vitamin C) 1,000 mg (2 x 500 mg) PO DAILY aspirin 81 mg PO DAILY azathioprine 75 mg (1.5 x 50 mg) PO DAILY blood sugar diagnostic (FreeStyle Lite Strips) As directed cholecalciferol (vitamin D3) 25 mcg PO DAILY diclofenac sodium 1% 2 grams topical QID empagliflozin (Jardiance) 25 mg PO DAILY estradiol 0.01%(0.1mg/gram) 0.01 appful vaginal DAILY fluticasone propionate 50 mcg/actuation 50 mcg intranasal DAILY PRN glipizide 10 mg PO DAILY lansoprazole 30 mg PO BID 30 days linaclotide (Linzess) 290 mcg PO DAILY lisinopril 2.5 mg PO DAILY loratadine 10 mg PO DAILY PRN lorazepam 0.5 mg PO QID PRN metformin ER 1,000 mg PO BID methylnaltrexone (Relistor) 450 mg (3 x 150 mg) PO DAILY metoprolol succinate ER 25 mg PO DAILY nortriptyline 10 mg PO BEDTIME nut.tx.gluc intol,lf,soy-fiber 0.08-1.5 gram-kcal/mL (Glucerna 1.5 Shaheen) 1 ea PO BID ondansetron 4 mg PO Q6-8H PRN oxycodone 5 mg PO Q4-6H PRN rosuvastatin 5 mg PO DAILY simethicone (Gas Relief (simethicone)) 125 mg PO BID-QID PRN sucralfate 10 mL PO BID thiamine HCl (vitamin B1) 100 mg PO DAILY walker As directed HPI Comments Details: This is a 63-year-old female with lupus and autoimmune hepatitis who presents for follow-up. She is presently on Imuran 75 mg daily prescribed by Gastroenterology. Last visit I prescribed her hydroxychloroquine. Patient states that she did not take it she was started on multiple other meds by Gastroenterology. She states that she continues to have diffuse pain. She denies any skin rashes. [facility] Medical History Trigger finger, left ring finger Lupus Cirrhosis Antiphospholipid antibody syndrome Leg pain, right Abdominal bloating Arthritis POOL (dyspnea on exertion) Gallstones Cirrhosis Nonalcoholic steatohepatitis (SHARMA) Autoimmune hepatitis High blood pressure Fibromyalgia Diabetes Surgical History History of heart artery stent Hx of cholecystectomy Hx of endoscopy History of colonoscopy History of shoulder surgery History of cataract surgery (2010) History of repair of right rotator cuff (08/2011) History of cervical discectomy (07/2009) History of carpal tunnel release Family History Father History of diabetes mellitus, type II History of hypertension History of heart bypass surgery Mother History of diabetes mellitus, type II Brother History of gout Paternal Uncle Cancer Paternal Aunt Cancer Social History Household Members: None Housing: Apartment Are you a primary career development specialist to a significant other at home: No 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) Alcohol intake: never Patient Tobacco Use Status: Never used Tobacco service: No Current occupational status: disabled Review of Systems Const Reports fatigue Musc Reports myalgias, Reports arthralgias and Reports limited range of motion Skin/Breast Denies rash Endo Reports fatigue Physical Exam Vital Signs: Last Vital Signs Pulse 77 06/02/24 12:44 BP 116/52 L 06/02/24 12:44 Pulse Ox 98 06/02/24 12:44 Oxygen Delivery Method Room Air 06/02/24 12:44 BMI result Body Mass Index 25.5 Const General: cooperative, healthy appearing and comfortable Nutritional Appearance: average body habitus Orientation/consciousness: patient oriented x3 Limitations: no limitations HEENT Head: Yes normocephalic and Yes atraumatic Mouth: moist mucous membranes Resp Effort & Inspection: normal respiratory effort and able to speak in complete sentences Auscultation: clear to auscultation bilaterally Cardio Rate: regular rate Rhythm: regular rhythm Skin General skin exam: no rashes or lesions noted Neuro General: patient oriented x3 Extrem Other: Mild osteoarthritic changes of both hands with no active synovitis Numerous fibromyalgia tender points Assessment & Plan Assessment & Plan (1) Lupus: Comment: dx ( autoimmune hepatitis, arthralgias ++ dsDNA intermittently low C3 and C4 +++ACL IgM ++ASMA) Code(s): M32.9 - Systemic lupus erythematosus, unspecified Category: Medical Plan: This is a 63-year-old female with history of SLE and chronic autoimmune hepatitis who presents for follow-up. Patient did not start hydroxychloroquine as prescribed last visit as she was started on multiple other meds by Dr. Liu. On exam I do not see signs suggestive of active SLE. Her symptoms are rather consistent with fibromyalgia. She remains on Imuran prescribed by Gastroenterology for autoimmune hepatitis At this time there is no compelling need to add hydroxychloroquine. To be discussed further in the future Labs before next visit in 4 months (2) Antiphospholipid antibody positive: Comment: 2019 anti beta glycoprotein antibody positive as well No history of thromboses or miscarriages Code(s): R76.0 - Raised antibody titer Category: Medical Plan: On aspirin regularly. 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 Is a noninflammatory, non-autoimmune central afferent processing disorder leading to a diffuse pain syndrome. Patient follows up regularly with a psychiatrist, I suggested evaluation by a psychotherapist as well. Request a referral for a sleep study from PCP to rule out DAY[place]. Try to follow sleep hygiene practices. Patient would benefit from increased physical activity, either through formal physical therapy or by joining a gym. Advised patient that she should start activity slowly and increase as tolerated. Consider low-impact exercises such as walking, swimming, aqua therapy stretching, yoga. Plan I spent 47 minutes reviewing patient's chart, evaluating patient, ordering diagnostic workup, counseling patient and documenting in the chart Orders: Orders Anti DNA DS Antibody 4 Months M32.9 - Systemic lupus erythematosus, unspecified Complement C3 4 Months M32.9 - Systemic lupus erythematosus, unspecified UA w Microscopic 4 Months M32.9 - Systemic lupus erythematosus, unspecified Complement C4 4 Months M32.9 - Systemic lupus erythematosus, unspecified C Reactive Protein 4 Months M32.9 - Systemic lupus erythematosus, unspecified Erythrocyte Sedimentation Rate 4 Months M32.9 - Systemic lupus erythematosus, unspecified DNA Double Stranded-Crithidia 4 Months M32.9 - Systemic lupus erythematosus, unspecified Protein Creatinine Ratio, Ur 4 Months M32.9 - Systemic lupus erythematosus, unspecified Coding Level of Care Code Est Pt Level 4 (94333) Diagnoses Lupus M32.9 Antiphospholipid antibody positive R76.0 Trigger finger, left ring finger M65.342 Fibromyalgia M79.7
[2024-06-02 12:44] VITALS: BP 116/52; PULSE 77; O2SAT 98; BMI 25.5
== END 2024-06-02 13:13 | disposition home or self-care (01) ==
PROVIDERS: PCP Internal Medicine; Visit Provider Student in an Organized Health Care Education/Training Program
DX: M32.9 Systemic lupus erythematosus, unspecified (principal); R76.0 Raised antibody titer; M65.342 Trigger finger, left ring finger; M79.7 Fibromyalgia
CPT/HCPCS: 99214

== ENCOUNTER → 2024-06-02 12:18 | Outpatient (BNVA) | payer MEDICARE, MEDICAID, SELFPAY ==
[2024-02-24 13:26] VITALS: BP 128/60; BMI 27.1
== END ==
PROVIDERS: PCP Internal Medicine; Visit Provider Student in an Organized Health Care Education/Training Program
DX: M32.9 Systemic lupus erythematosus, unspecified (principal); M65.342 Trigger finger, left ring finger; M79.7 Fibromyalgia; K75.4 Autoimmune hepatitis; R76.0 Raised antibody titer
CPT/HCPCS: 99212

== ENCOUNTER → 2024-06-08 09:21 | Outpatient (BNVA) | payer MEDICARE, MEDICAID, SELFPAY ==
[2024-02-24 13:26] VITALS: BP 128/60; BMI 27.1
== END ==
PROVIDERS: PCP Internal Medicine; Visit Provider Internal Medicine Gastroenterology
DX: K75.4 Autoimmune hepatitis (principal)
CPT/HCPCS: 99212

== ENCOUNTER 2024-06-08 09:23 | Outpatient (AMB) | payer MEDICARE, MEDICAID, SELFPAY ==
[2024-02-24 13:26] VITALS: BP 128/60; BMI 27.1
[2024-06-08 09:23] VITALS: BP 114/58; PULSE 64; O2SAT 99; BMI 24.2
--- NOTE | 2024-06-08 09:23 | A.OFFVIS_ITS ---
Vital Signs 06/08/24 09:23 Height 5 ft 2 in Weight 132 lb 4.438 oz BMI 24.2 BP 114/58 L Blood Pressure Location Lt brachial Position Sitting Pulse 64 Pulse Oximetry (%) 99 Intake Visit Reasons: 4 week f/u Intake Note: Radha presents in the office as a 4 week follow up. CC: Having right upper quadrant pain, loss of appetite, tired, fatigue, acid reflux Allergies duloxetine [From CYMBALTA] Allergy (Intermediate, Verified 06/08/24 09:24) SHAKINESS HPI HPI 4 week f/u: Details: 63 yr old f here for f/u for AIH RECAP- index visit 04/2019 she was diagnosed with AIH and had been on imuran for 2 yrs (50 mg) but was then changed to 6 tabs MTX weekly and folic acid daily, after imuran stopped but this was recommenced and the MTX stopped due to SE and rising LFT she was dx based on lab work per her report she had liver bx ordered by her ID specialist (she was seeing for assessment of hep c but she doesn;t have it) she had pain since liver bx (02/2019) but does admit maybe it was there before no vomiting but occ nausea sometimes has constipation, which exacerbates her abdo pain mentioned above--stool was hard, and she has to push appetite is not so good, can't say why weight was going down she had been having constipation, on oxycodone 10 mg daily on prednisone for lupus she was given movantik for opiate induced constipation and pentoxyfilin for possible SHARMA she was referred to Dr Desai for gallstones causing abdo pain, and had cholecystectomy 05/2020 h pylori f/u testing has been negative TESTS: she has abn AST/ALT on and off for last several years on [facility] 02/2019--normal LFT: 12/2018--normal, LFT 06/25-2019 mild AST, ALT elevation LFT: 09/2019--AST36, ALT 42, alk phos--103, bili 0.4 LFT- 11/2019- bili-nml, AST-37, ALT-39, alk phos- 92 LFT 12/2019-- AST-42,ALT,40, GGT 109, alk phos--nml, bili 0.6 HEAVEN 1:1280 ds DNA--pos LFT- 04/19/2020--AST94, ALT 87, alk phos 148, bili 0.5 LFT 08/2020--nml, protein high, Ig levels high, SPEP neg LFT 12/16-- bili 5, AST 96, ALT 239 ( Imuran had been stopped due to v high levels of 6 TG and ^ MMP -->00930) 6 TG <50, 6 MMp 1516 LFT 11/06/23 bili-0.4, AST 44, ALT 27, alk florinda 176, (INR from 08/17--1.0) LFT 06/20 - AST 55, ALT 57, alk phos 177, (INR 1 from 02/17) vitamin A level had been low--improved with replacement BIOPSY: liver bx with grade 1, stage 4 cirrhosis, mixed macro and microvesicular steatosis, and background steatohepatitis IMAGING: MRI 05/18-- adenitis, cirrhosis, no mass lesions, few LNs Upper GI series: moderate GERD< nml stomach and duodenum US 11/2021- cirrhosis, no mass GES- 2021- nml EGD/colonoscopy- 04/2021-- esophagitis, gastritis, h pylori noted, x 1Ta removed, MRI 03/2021-- nodular liver, venous collaterals, MRI 08/2020--stable LN, liver with borderline steatosis, no mass lesions MRI 05/2020--upper abdo LN--stable, cirrhosis of liver noted CT 12/2019--liver calcifications, retroperitoneal LNs, gallstones u/s 10/2019--gallstones, adenomyomatosis, F3-4 elastography u/s 11/2018--coarse liver, no masses, CT 2017--mildly enalrged LN, hepatic granulomas, central mesenteric stranding EGD 04/2019--reflux, no varices EGD 10/17: no varices, patulous LEs, possible gastroparesis -balloon dilation of UES INTERIM: she could not tolerate budesonide made her feel unwell she has gen malaise appetite is fair she has some constipation EXAM: GENERAL: The patient is well developed and nontoxic. VITAL SIGNS:see workflow HEENT: Nonicteric sclerae, PERRLA, EOMI. Oropharynx clear. Moist mucous membranes. Conjunctivae appear well perfused. No thyroid mass. CHEST: Chest wall is nontender. HEART: Regular rate and rhythm without murmurs. LUNGS: Clear to auscultation bilaterally. ABDOMEN: Soft, positive bowel sounds, mild tender RUQ, no organomegaly, lipoma felt SKIN: No rash, no excessive bruising, petechiae, or purpura. NEUROLOGIC: Cranial nerves II-XII intact without motor/sensory deficit. joints: no swelling Assessments 1. Cirrhosis of liver-suspected from combination of AIH and SHARMA, SLE--on imuran 75 mg, still with elevated LFT 2. Gallstones AND ADENOMYOMATOSIS, s/p cholecystectomy by Dr Desai 3. constipation-opiate related with bloating, maybe causing gastroparesis 4. weight loss, possibly from uncontrolled inflammation and SLE PLAN: 1/ CT A/P for further assessment, hold metformin day before and after CT scan--this is scheduled in 1 week 2/ after the CT scan start pred 20 mg and gradually taper, monitor glucose and recheck LFT in about 2 weeks PFSH Medical History Trigger finger, left ring finger Lupus Cirrhosis Antiphospholipid antibody syndrome Leg pain, right Abdominal bloating Arthritis POOL (dyspnea on exertion) Gallstones Cirrhosis Nonalcoholic steatohepatitis (SHARMA) Autoimmune hepatitis High blood pressure Fibromyalgia Diabetes Surgical History History of heart artery stent Hx of cholecystectomy Hx of endoscopy History of colonoscopy History of shoulder surgery History of cataract surgery (2010) History of repair of right rotator cuff (08/2011) History of cervical discectomy (07/2009) History of carpal tunnel release Family History Father History of diabetes mellitus, type II History of hypertension History of heart bypass surgery Mother History of diabetes mellitus, type II Brother History of gout Paternal Uncle Cancer Paternal Aunt Cancer Social History Household Members: None Housing: Apartment Are you a primary healthcare consulting manager to a significant other at home: No 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 have visiting nurse or other home services: 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 Positive antismooth muscle antibody. Treated with azathioprine. Code(s): K75.4 - Autoimmune hepatitis Category: Medical Plan: see above Orders: Orders Comprehensive Met. Panel Today K75.4 - Autoimmune hepatitis, K75.81 - Nonalcoholic steatohepatitis (SHARMA) C Reactive Protein Today K75.4 - Autoimmune hepatitis Medications: New barium sulfate 2%(w/v) (Readi-Cat 2) 900 mL PO ONCE 900 mL 0RF prednisolone 4 tab for 1 week, 3 tab for 1 week, 2 tab for 1 week 60 tabs 0RF Refilled 2 simethicone (Gas Relief (simethicone)) 125 mg PO BID-QID PRN 20 caps 0RF abdominal distention Coding Level of Care Code Est Pt Level 4 (64852) Diagnoses Chronic autoimmune hepatitis K75.4
== END 2024-06-08 10:48 | disposition home or self-care (01) ==
PROVIDERS: PCP Internal Medicine; Visit Provider Internal Medicine Gastroenterology
DX: K75.4 Autoimmune hepatitis (principal)
CPT/HCPCS: 99214

== ENCOUNTER 2024-06-10 15:41 | Outpatient (REF) | payer MEDICARE, MEDICAID, SELFPAY ==
[2024-02-24 13:26] VITALS: BP 128/60; BMI 27.1
[2024-06-10 17:49] LABS: Alanine Aminotransferase 50 U/L (0-31); Albumin Level 3.9 g/dL (3.5-5.0); Alkaline Phosphatase 166 U/L (39-117); Anion Gap 7 (12-20); Aspartate Amino Transferase 61 U/L (5-31); Bilirubin Total 0.4 mg/dL (0.0-1.0); Blood Urea Nitrogen 13 mg/dL (9-16); Calcium 9.1 mg/dL (8.4-10.2); Carbon Dioxide 26 mmol/L (22-29); Chloride 105 mmol/L (96-108); Estimated Glomerular Filt Rate 57; Glucose Random 238 mg/dL (60-115); Sodium 134 mmol/L (135-145); Total Protein 9.3 g/dL (6.5-8.0)
== END 2024-06-10 15:42 | disposition home or self-care (01) ==
LOC: HO.LAB 15:41
PROVIDERS: PCP Internal Medicine; Visit Provider Internal Medicine Gastroenterology
DX: K75.81 Nonalcoholic steatohepatitis (NASH) (principal); K75.4 Autoimmune hepatitis
CPT/HCPCS: 36415; 80053

== ENCOUNTER 2024-06-15 12:54 | Outpatient (REF) | payer MEDICARE, MEDICAID, SELFPAY ==
[2024-02-24 13:26] VITALS: BP 128/60; BMI 27.1
--- NOTE | ~2024-06-15 | CT_ITS ---
EXAMINATION: CT ABDOMEN PELVIS WITH IV CONTRAST HISTORY: R63.4 - Abnormal weight loss COMPARISON: Comparison is made with the prior examination dated 01/14/2020. TECHNIQUE: CT scan of the abdomen and pelvis was performed following administration of 85 mL Omnipaque 350 using standard departmental protocol. Coronal and sagittal reformatted images were generated and reviewed. The patient received oral contrast material. This CT exam was performed with one or more of the following dose reduction techniques: automated exposure control, adjustment of the mA and/or kV according to patient size, use of iterative reconstruction technique. DLP: 450 mGy-cm FINDINGS: LOWER CHEST: The visualized lung bases are clear. There is no pleural effusion. CARDIOVASCULATURE: The heart is normal in size. There is no pericardial effusion. LIVER: The liver demonstrates a nodular contour, consistent with cirrhosis. No liver mass is identified. The hepatic and portal veins are patent. GALLBLADDER / BILE DUCTS: The gallbladder is surgically absent. There is no intra or extrahepatic biliary ductal dilatation. SPLEEN: The spleen is top normal in size. No focal splenic lesion is identified. PANCREAS: The pancreas is unremarkable in appearance. ADRENAL GLANDS: Within normal limits. KIDNEYS/RETROPERITONEUM: No renal calculi are identified. There is no hydronephrosis. No renal masses are identified. LYMPH NODES: There are prominent gastrohepatic, peripancreatic, and sunday hepatis lymph nodes measuring up to 2.8 cm in size. These are similar in appearance to the prior study. There is no para-aortic lymphadenopathy. VASCULATURE: The abdominal aorta demonstrates atherosclerotic calcification, but is normal in caliber. MESENTERY/PERITONEUM: There is a small amount of free fluid in the pelvis.. No masses. There is no free intraperitoneal gas. STOMACH: The stomach is unremarkable. SMALL BOWEL: The small bowel is normal in caliber. COLON: There is a large amount of stool throughout the colon. APPENDIX: Normal. URINARY BLADDER/PELVIC ORGANS: The urinary bladder extends below the level of the pubic symphysis, consistent with pelvic floor relaxation. There are calcifications in the uterus consistent with fibroids. BONES / SOFT TISSUES: There is slight spondylolisthesis of L4 on L5. There is degenerative disc disease of the spine. CT/CT abdomen pelvis w IV con IMPRESSION: Cirrhosis of the liver with borderline splenomegaly. Prominent upper abdominal lymph nodes without significant change. Small amount of abdominal ascites. Electronically signed by: Joe Navarro MD 06/15/2024 03:49 PM EST
[2024-06-15] MEDS: Barium Sulfate Oral (Mocha) 450 ML ORAL.SUSP 900 ML PO (15:12)
[2024-06-15] MEDS: iohexoL 350 MG/ML 100 ML INFUS..BTL 85 ML IV (15:12)
== END 2024-06-15 12:55 | disposition home or self-care (01) ==
LOC: HO.CT 12:54
PROVIDERS: PCP Internal Medicine; Visit Provider Internal Medicine Gastroenterology
DX: R63.4 Abnormal weight loss (principal)
CPT/HCPCS: 74177; Q9967

== ENCOUNTER → 2024-06-15 12:56 | Outpatient (BNV) | payer MEDICARE, MEDICAID, SELFPAY ==
[2024-02-24 13:26] VITALS: BP 128/60; BMI 27.1
== END ==
PROVIDERS: PCP Internal Medicine; Visit Provider Radiology Diagnostic Radiology
DX: K74.60 Unspecified cirrhosis of liver (principal); C77.2 Secondary and unspecified malignant neoplasm of intra-abdominal lymph nodes; R18.8 Other ascites
CPT/HCPCS: 74177

== ENCOUNTER 2024-07-01 10:16 | Emergency (ER) | payer MEDICARE, MEDICAID, SELFPAY ==
[2024-02-24 13:26] VITALS: BP 128/60; BMI 27.1
[2024-07-01 10:58] VITALS: BP 128/66; PULSE 80; RESP 18; TEMP 36.1; O2SAT 98; BMI 24.2
--- NOTE | 2024-07-01 11:03 | ECG_ITS ---
Test Reason : CHEST PAIN Blood Pressure : */* mmHG Vent. Rate : 73 BPM Atrial Rate : 73 BPM P-R Int : 156 ms QRS Dur : 70 ms QT Int : 366 ms P-R-T Axes : 53 27 42 degrees QTcB Int : 403 ms Normal sinus rhythm Normal ECG When compared with ECG of 25-Oct-2022 17:53, No significant change was found Referred By: Generic ED Physician Electronically Signed By: Ollie Smith
[2024-07-01 11:34] LABS: MANUAL DIFF FLAG NO
[2024-07-01 11:35] LABS: Basophils Percent Auto 1.1 % (0-2); Eosinophils Absolute Auto 0.1 X10*3/uL (0.0-0.4); Eosinophils Percent Auto 2.3 % (0-4); Hematocrit 40.6 % (37.0-47.0); Hemoglobin 12.8 g/dl (12.0-16.0); Imm Gran Abs Auto 0.02 X10*3/uL (0.00-0.03); Imm Gran Pct Auto 0.6 % (0.0-0.4); Lymphocytes Absolute Auto 1.1 X10*3/uL (1.2-4.9); Lymphocytes Percent Auto 29.9 % (20-40); Mean Corpuscular HGB Conc 31.5 g/dl (31.0-35.0); Mean Corpuscular Hemoglobin 27.3 pg (27.0-33.0); Mean Corpuscular Volume 86.6 fL (80.0-98.0); Mean Platelet Volume 9.5 fL (9.4-12.3); Monocytes Absolute Auto 0.6 X10*3/uL (0.1-1.2); Monocytes Percent Auto 16.2 % (2-11); Neutrophils Absolute Auto 1.8 x10*3/uL (2.0-8.3); Neutrophils Percent Auto 49.9 % (45-73); Platelet Count 191 X10*3/uL (160-400); Red Blood Count 4.69 X10*6/uL (4.20-5.50); Red Cell Distribution Width 15.6 % (11.0-16.0); White Blood Count 3.5 X10*3/uL (4.8-10.8)
[2024-07-01 11:37] LABS: Appearance Urine Clear; Color Urine Yellow; Glucose Urine UA >=1000 mg/dL (Negative); Leukocyte Esterase Urine Negative (Negative); Nitrite Urine Negative (Negative); Specific Gravity - Urine >= 1.030 (1.005-1.025); UMIC TRIGGER UACC YES; Urine Blood Negative (Negative); Urine Ketones Negative (Negative); Urine Protein Negative (Neg-Trace)
[2024-07-01 11:49] LABS: Alanine Aminotransferase 46 U/L (0-31); Albumin Level 3.9 g/dL (3.5-5.0); Alkaline Phosphatase 136 U/L (39-117); Anion Gap 11 (12-20); Aspartate Amino Transferase 65 U/L (5-31); Bilirubin Direct 0.2 mg/dL (0.0-0.5); Bilirubin Total 0.4 mg/dL (0.0-1.0); Blood Urea Nitrogen 8 mg/dL (9-16); Calcium 9.1 mg/dL (8.4-10.2); Carbon Dioxide 26 mmol/L (22-29); Chloride 103 mmol/L (96-108); Creatinine Clr Calc Pharmacy 62.3; Estimated Glomerular Filt Rate > 60; Glucose Random 166 mg/dL (60-115); Lipase 36 U/L (8-78); Potassium 3.9 mmol/L (3.3-5.1); Sodium 136 mmol/L (135-145); Total Protein 9.4 g/dL (6.5-8.0)
[2024-07-01 11:54] LABS: Troponin-I High Sensitivity 2.9 ng/L (<3.5-17.0)
[2024-07-01 12:02] LABS: Bacteria Urine None Seen (None Seen); Hyaline Casts Urine 0-2 /LPF (0-2); RBC Urine 0-2 /HPF (0-2); WBC Urine 0-5 /HPF (0-5)
[2024-07-01 16:26] VITALS: BP 145/67; PULSE 93; RESP 20; TEMP 36.2; O2SAT 98
[2024-07-01 16:40] LABS: Glucose, Whole Blood 125 mg/dL (60-115)
--- NOTE | 2024-07-01 17:40 | ED_ITS ---
HPI - Abdominal Pain General Chief Complaint: Abdominal Pain Stated Complaint: vomiting, stomach pain, tired Time Seen by Provider: 07/01/24 17:40 Source: patient Mode of arrival: ambulatory Limitations: no limitations History of Present Illness ED Provider: Renetta Bridges NP HPI narrative: Patient is a 63-year-old female who presents emergency department for evaluation. She reports 4 days ago on Saturday she had multiple episodes of vomiting over a 6 hour. She has been experiencing epigastric and left upper quadrant pain since then described as a burning and stabbing pain, nausea but no further vomiting, gas/bloating sensation, acid reflux, reports feeling dehydrated and dizzy upon position changing. She admits that in the past of her underlying condition she is not typically experienced pain like this. She states that she had a CT scan of her abdomen and pelvis done outpatient, she began taking prednisone 06/26/2024, then stopped after 2 days due to the vomiting and has not taken it since this was prescribed by Dr. Liu. Denies fevers, chills, hematemesis, diarrhea, constipation, hematochezia, melena, dysuria, urinary frequency, urinary urgency, urinary hesitancy, hematuria. Related Data Home Medications ?Medication ?Instructions ?Recorded ?Confirmed glipizide 10 mg tablet 10 mg PO DAILY 05/17/20 06/26/24 albuterol sulfate 90 mcg/actuation 90 mcg inhalation BID PRN 06/06/20 06/26/24 aerosol inhaler Shortness Of Breath fluticasone propionate 50 50 mcg intranasal DAILY PRN Nasal 06/06/20 06/26/24 mcg/actuation nasal Congestion spray,suspension lorazepam 0.5 mg tablet 0.5 mg PO QID PRN Anxiety 06/07/20 06/26/24 ondansetron 4 mg disintegrating 4 mg PO Q6-8H PRN Nausea 06/07/20 06/26/24 tablet oxycodone 5 mg tablet 5 mg PO Q4-6H PRN Pain 06/07/20 06/26/24 empagliflozin 25 mg tablet 25 mg PO DAILY 06/13/20 06/26/24 (Jardiance) blood sugar diagnostic (FreeStyle #10 ea 02/25/23 06/26/24 Lite Strips) cholecalciferol (vitamin D3) 25 25 mcg PO DAILY 02/25/23 06/26/24 mcg (1,000 unit) tablet lisinopril 2.5 mg tablet 2.5 mg PO DAILY 02/25/23 06/26/24 metformin 500 mg tablet,extended 1,000 mg PO BID 02/25/23 06/26/24 release 24 hr nortriptyline 10 mg capsule 10 mg PO BEDTIME 04/03/24 06/26/24 alcohol swabs (Alcohol Prep Pads) 1 pad topical TID 06/08/24 06/26/24 lancets 33 gauge (TRUEplus Lancets) #100 ea 06/08/24 06/26/24 Previous Rx's ?Medication ?Instructions ?Recorded walker #1 ea 05/08/20 aspirin 81 mg tablet,delayed 81 mg PO DAILY #30 tabs 12/27/20 release nutrition tx glu 1 ea PO BID #8,000 mL 06/03/23 intol,lac-free,soy-fiber 0.08 gram-1.5 kcal/mL liquid (Glucerna 1.5 Shaheen) linaclotide 290 mcg capsule 290 mcg PO DAILY #30 caps 01/28/24 (Linzess) metoprolol succinate 25 mg 25 mg PO DAILY #30 tabs 02/21/24 tablet,extended release 24 hr rosuvastatin 5 mg tablet 5 mg PO DAILY #30 tabs 02/21/24 acetaminophen 500 mg tablet 500 mg PO Q6H PRN pain #30 tabs 03/11/24 (Tylenol Extra Strength) ascorbic acid (vitamin C) 500 mg 1,000 mg (2 x 500 mg) PO DAILY 03/16/24 tablet (Vitamin C) #180 tabs azathioprine 50 mg tablet 75 mg (1.5 x 50 mg) PO DAILY #60 03/23/24 tabs lansoprazole 30 mg capsule,delayed 30 mg PO BID 30 days #60 caps 03/27/24 release sucralfate 100 mg/mL oral 10 ml PO BID #1,000 mL 05/13/24 suspension barium sulfate 2 % (w/v) oral 900 ml PO ONCE #900 mL 06/08/24 suspension (Readi-Cat 2) prednisolone 5 mg tablet 5 mg PO .COMPLEX #60 tabs 06/08/24 simethicone 125 mg capsule (Gas 125 mg PO BID-QID PRN abdominal 06/08/24 Relief (simethicone)) distention #20 caps thiamine HCl (vitamin B1) 100 mg 100 mg PO DAILY #90 tabs 06/15/24 tablet Allergies Allergy/AdvReac Type Severity Reaction Status Date / Time duloxetine [From CYMBALTA] Allergy Intermediate SHAKINESS Verified 07/01/24 11:00 Review of Systems Review of Systems Yes all other systems are reviewed and are negative PMFSH Past Medical History Attestation statement: The following information was validated with the patient. Source: old records reviewed Medical History Trigger finger, left ring finger Lupus Cirrhosis Antiphospholipid antibody syndrome Leg pain, right Abdominal bloating Arthritis POOL (dyspnea on exertion) Gallstones Cirrhosis Nonalcoholic steatohepatitis (SHARMA) Autoimmune hepatitis High blood pressure Fibromyalgia Diabetes Surgical History History of heart artery stent Hx of cholecystectomy Hx of endoscopy History of colonoscopy History of shoulder surgery History of cataract surgery (2010) History of repair of right rotator cuff (08/2011) History of cervical discectomy (07/2009) History of carpal tunnel release Family History Family History Father History of diabetes mellitus, type II History of hypertension History of heart bypass surgery Mother History of diabetes mellitus, type II Brother History of gout Paternal Uncle Cancer Paternal Aunt Cancer Social History Social History Household Members: None Housing: Apartment Are you a primary housekeeper caregiver to a significant other at home: No 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 have 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) Alcohol intake: never Patient Tobacco Use Status: Never used Tobacco Advance Directives: No Advance Directives Information Provided: No Do you have a plan to hurt others: No Plan service: No Current occupational status: disabled Physical Exam ED Vital Signs: Vital Signs - 24 hr 07/01/24 10:58 07/01/24 16:26 07/01/24 18:13 Temperature 96.9 F 97.1 F 98.4 F Pulse Rate 80 93 81 Respiratory Rate 18 20 16 Blood Pressure 128/66 145/67 H 131/64 Pulse Oximetry 98 98 97 Oxygen Delivery Method Room Air Room Air Room Air 07/01/24 18:14 07/01/24 18:15 07/01/24 18:17 Temperature Pulse Rate 79 84 83 Respiratory Rate Blood Pressure 128/67 137/58 L 141/67 H Pulse Oximetry Oxygen Delivery Method BMI result Body Mass Index 24.2 Appearance: Alert.?Oriented to person, place and time. No acute distress.?Normal affect.?? Neck: Normal inspection.? Neck supple.?? CVS: Heart sounds normal. Normal heart rate and rhythm.? Pulses normal.?? Respiratory: No respiratory distress.? Lung sounds clear to auscultation bilaterally?? Abdomen: Soft with right upper quadrant and epigastric tenderness upon palpation. No rebound tenderness at McBurney's point. Negative psoas sign. Negative Rovsing sign. Negative Mackenzie sign. No CVAT. Normoactive bowel sounds. No pulsatile mass.?? Skin: Skin warm and dry.? Normal skin color.? Extremities: No lower extremity edema.? Neuro: Moves all extremities spontaneously. Sensation intact bilaterally. Ambulates with normal steady gait. Course Reevaluation(s) Reevaluation #1: Advised by nursing staff at this time that patient left without completing treatment. Report that she walked out of the emergency department stating that she no longer wanted to wait here. Did not receive any medications before leaving Time: 19:15 Medical Decision Making Medical Decision Making MDM Narrative: Patient is a 63-year-old female On review of her medical records she has past medical history of lupus, arthritis, fibromyalgia, diabetes, chronic autoimmune hepatitis, cirrhosis, SHARMA, s/p cholecystectomy, chronic opiate induced constipation and bloating possible gastroparesis, last seen by Gastroenterology Dr. Liu on 06/08/2024 at which time she received a prescription for 3 week course of prednisolone to be started after CT scan (which as per HPI she started on 06/26/2024) of her abdomen with gradual taper, she only took 2 days worrisome before she began vomiting and has not taken it since.. She presents emergency department today for evaluation of right upper quadrant and epigastric abdominal pain, nausea with resolved vomiting, bloating, and dizziness as per HPI. On evaluation she does have tenderness over the right upper quadrant and epigastric region, overall without signs of systemic toxicity found to be afebrile without tachycardia, no hypotension. Examination not consistent with acute abdomen, no peritoneal signs; no tenderness upon light palpation, no rebound tenderness, no guarding, no percussive tenderness. No associated chest pain shortness of breath or URI symptoms to suggest pneumonia, no clinical evidence of DVT or personal history of VTE/malignancy to suggest pulmonary embolism. No high-risk past medical history to suggest myocardial infarction and is without chest pain, less likely AAA, aortic dissection. She does have right upper quadrant and epigastric tenderness upon palpation, negative Mackenzie sign, she is s/p cholecystectomy, has chronic hepatitis. Given associated acid reflux tenderness upon palpation over the epigastrium, may be secondary to gastritis, she reports being compliant with her PPI since starting the prednisone but she took for 2 days preceding the symptoms, no recent hematemesis history less likely to suggest PUD. Denies excessive alcohol consumption, history of diabetes, lower suspicion acute pancreatitis. Lower abdominal examination is benign. Orthostatic vital signs are negative, evaluation she has leukopenia no anemia or thrombocytopenia. No electrolyte derangement. No AKIN. Chronic elevated AST/ALT/alk-phos, normal lipase. Urinalysis is concentrated likely dehydration, no sign of infection or microscopic hematuria. Viral serologies are negative. Given recent outpatient CT, without acute pathology, would defer repeat at this time, pain may be inflammatory secondary to recent multiple episodes of vomiting unlikely gastritis. Patient to received 1 L normal saline IV fluid, Zofran IV for nausea, famotidine IV and pending re-evaluation Differential Diagnosis Differential Diagnoses: The differential diagnosis associated with the presentation includes (See narrative above) Admission/Observation Consideration of admission/observation: Escalation of care including admission/observation considered (See narrative above ) Lab Data MDM Lab Attestation statement: I reviewed the patient's lab results. 07/01/24 11:21 07/01/24 11:21 Labs: Lab Results 07/01/24 07/01/24 07/01/24 Range/Units 11:21 16:32 17:51 WBC 3.5 L (4.8-10.8) X10*3/uL RBC 4.69 (4.20-5.50) X10*6/uL Hgb 12.8 (12.0-16.0) g/dl Hct 40.6 (37.0-47.0) % MCV 86.6 (80.0-98.0) fL MCH 27.3 (27.0-33.0) pg MCHC 31.5 (31.0-35.0) g/dl RDW 15.6 (11.0-16.0) % Plt Count 191 (160-400) X10*3/uL MPV 9.5 (9.4-12.3) fL Immature Gran % (Auto) 0.6 H (0.0-0.4) % Neut % (Auto) 49.9 (45-73) % Lymph % (Auto) 29.9 (20-40) % [place] % (Auto) 16.2 H (2-11) % Eos % (Auto) 2.3 (0-4) % Baso % (Auto) 1.1 (0-2) % Lymph # (Auto) 1.1 L (1.2-4.9) X10*3/uL [place] # (Auto) 0.6 (0.1-1.2) X10*3/uL Eos # (Auto) 0.1 (0.0-0.4) X10*3/uL Baso # (Auto) 0.0 (0.0-0.2) X10*3/uL Abs Immat Gran (auto) 0.02 (0.00-0.03) X10*3/uL Absolute Neuts (auto) 1.8 L (2.0-8.3) x10*3/uL Absolute Nucleated RBC 0.000 (0.0-0.012) X10*3/uL Nucleated RBC % (auto) 0.0 (0.0-0.2) /100WBC Sodium 136 (135-145) mmol/L Potassium 3.9 (3.3-5.1) mmol/L Chloride 103 (96-108) mmol/L Carbon Dioxide 26 (22-29) mmol/L Anion Gap 11 L (12-20) BUN 8 L (9-16) mg/dL Creatinine 0.73 (0.5-1.4) mg/dL Estim Creat Clear Calc 62.3 Estimated GFR > 60 POC Glucose 125 H (60-115) mg/dL Random Glucose 166 H (60-115) mg/dL Calcium 9.1 D (8.4-10.2) mg/dL Total Bilirubin 0.4 (0.0-1.0) mg/dL Direct Bilirubin 0.2 (0.0-0.5) mg/dL AST 65 H (5-31) U/L ALT 46 H (0-31) U/L Alkaline Phosphatase 136 H (39-117) U/L Troponin I High Sens 2.9 (<3.5-17.0) ng/L Total Protein 9.4 H (6.5-8.0) g/dL Albumin 3.9 (3.5-5.0) g/dL Lipase 36 (8-78) U/L Urine Color Yellow Urine Appearance Clear Urine pH 6.0 (5.0-9.0) Ur Specific [place] >= 1.030 H (1.005-1.025) Urine Protein Negative (Neg-Trace) mg/dL Urine Glucose (UA) >=1000 H (Negative) mg/dL Urine Ketones Negative (Negative) mg/dL Urine Blood Negative (Negative) Urine Nitrite Negative (Negative) Ur Leukocyte Esterase Negative (Negative) Urine RBC 0-2 (0-2) /HPF Urine WBC 0-5 (0-5) /HPF Ur Squamous Epith Cells 3-5 (0-2) /HPF Urine Bacteria None Seen (None Seen) Hyaline Casts 0-2 (0-2) /LPF Influenza Type A (PCR) NEGATIVE (Negative) Influenza Type B (PCR) NEGATIVE (Negative) RSV RNA Qual (PCR) NEGATIVE (Negative) SARS-CoV-2 RNA (RT-PCR) NEGATIVE (Negative) External Record Review External record reviewed: Outpatient record (See narrative above) and Prior outpatient radiology 06/15/2024 CT/CT abdomen pelvis w IV con IMPRESSION: Cirrhosis of the liver with borderline splenomegaly. Prominent upper abdominal lymph nodes without significant change. Small amount of abdominal ascites. Discharge Plan Discharge Clinical Impression: Abdominal pain Patient Disposition: Left W/O Completing Treatment Prescriptions: No Action aspirin 81 mg tablet,delayed release (DR/EC) 81 mg PO DAILY Qty: 30 5RF Linzess 290 mcg capsule 290 mcg PO DAILY Qty: 30 3RF ascorbic acid (vitamin C) [Vitamin C] 500 mg tablet 1,000 mg PO DAILY Qty: 180 1RF azathioprine 50 mg tablet 75 mg PO DAILY Qty: 60 1RF lansoprazole 30 mg capsule,delayed release(DR/EC) 30 mg PO BID 30 Days Qty: 60 2RF sucralfate 100 mg/mL suspension 10 ml PO BID Qty: 1000 2RF thiamine HCl (vitamin B1) 100 mg tablet 100 mg PO DAILY Qty: 90 1RF lorazepam 0.5 mg tablet 0.5 mg PO QID PRN (Reason: Anxiety) ondansetron 4 mg tablet,disintegrating 4 mg PO Q6-8H PRN (Reason: Nausea) oxycodone 5 mg tablet 5 mg PO Q4-6H PRN (Reason: Pain) (DME) shade [facility] See Rx Instructions .ROUTE .MEDSUPPLY Qty: 1 0RF Rx Instructions: As directed Jardiance 25 mg Tablet 25 mg PO DAILY acetaminophen [Tylenol Extra Strength] 500 mg tablet 500 mg PO Q6H PRN (Reason: pain) Qty: 30 0RF fluticasone propionate 50 mcg/actuation spray,suspension 50 mcg intranasal DAILY PRN (Reason: Nasal Congestion) albuterol sulfate 90 mcg/actuation HFA aerosol inhaler 90 mcg inhalation BID PRN (Reason: Shortness Of Breath) glipizide 10 mg tablet 10 mg PO DAILY lisinopril 2.5 mg tablet 2.5 mg PO DAILY (DME) FreeStyle Lite Strips Strip See Rx Instructions .ROUTE TID Qty: 10 Rx Instructions: As directed metformin 500 mg tablet extended release 24 hr 1,000 mg PO BID cholecalciferol (vitamin D3) 25 mcg (1,000 unit) tablet 25 mcg PO DAILY nortriptyline 10 mg capsule 10 mg PO BEDTIME rosuvastatin 5 mg tablet 5 mg PO DAILY Qty: 30 5RF Rx Instructions: New cholesterol medication metoprolol succinate 25 mg tablet extended release 24 hr 25 mg PO DAILY Qty: 30 5RF Rx Instructions: New heart medication alcohol swabs [Alcohol Prep Pads] Pads, Medicated 1 pad topical TID simethicone [Gas Relief (simethicone)] 125 mg capsule 125 mg PO BID-QID PRN (Reason: abdominal distention) Qty: 20 0RF (DME) lancets [TRUEplus Lancets] 33 gauge misc See Rx Instructions .ROUTE QAM Qty: 100 Rx Instructions: As directed prednisolone 5 mg tablet 5 mg PO .COMPLEX Qty: 60 0RF Rx Instructions: 4 tab for 1 week, 3 tab for 1 week, 2 tab for 1 week Readi-Cat 2 2 % (w/v) suspension 900 ml PO ONCE Qty: 900 0RF Glucerna 1.5 Shaheen 0.08-1.5 gram-kcal/mL liquid 1 ea PO BID Qty: 8000 3RF Discharge Date/Time: 07/01/24 19:16 Print Language: Belarusian
[2024-07-01 18:13] VITALS: BP 131/64; PULSE 81; RESP 16; TEMP 36.9; O2SAT 97
[2024-07-01 18:14] VITALS: BP 128/67; PULSE 79
[2024-07-01 18:15] VITALS: BP 137/58; PULSE 84
[2024-07-01 18:17] VITALS: BP 141/67; PULSE 83
[2024-07-01 18:32] LABS: Influenza A PCR NEGATIVE (Negative); Influenza B PCR NEGATIVE (Negative); Resp Syncy Virus RNA Qual PCR NEGATIVE (Negative); SARS COV2 PCR INHOUSE NEGATIVE (Negative)
== END 2024-07-01 22:09 | disposition left against medical advice (07) ==
PROVIDERS: Nurse Practitioner Family; Emergency Provider Emergency Medicine; PCP Internal Medicine
DX: R10.12 Left upper quadrant pain (principal); R07.9 Chest pain, unspecified; R10.13 Epigastric pain; R11.0 Nausea; E11.9 Type 2 diabetes mellitus without complications; M32.9 Systemic lupus erythematosus, unspecified; Z03.818 Encounter for observation for suspected exposure to other biological agents ruled out
CPT/HCPCS: 0241U; 36415; 80048; 80076; 81001; 82947; 83690; 84484; 85025; 93005; 99283; 99284

== ENCOUNTER 2024-07-06 11:16 | Outpatient (AMB) | payer MEDICARE, MEDICAID, SELFPAY ==
[2024-02-24 13:26] VITALS: BP 128/60; BMI 27.1
--- NOTE | 2024-07-06 11:16 | MHC.OFFVIS ---
Vital Signs 07/06/24 11:20 Weight 112 lb 6.972 oz BP 120/61 Blood Pressure Location Lt brachial Position Sitting Pulse 70 Intake Visit Reasons: ed follow up Intake Note: Radha presents in the office as a follow up for ED. CC: She states she feels like she is having issues eating and feels like there is something in her stomach she is having severe vomiting and feels fatigued. Sharp pain in the RUQ. She was waiting in the ED and she ended up leaving because she was there for too long and they were not helping her. She had urine, CT and labs and has not heard any results. Would like results to her labs that were done in the ED. Allergies duloxetine [From CYMBALTA] Allergy (Intermediate, Verified 07/06/24 11:20) SHAKINESS HPI HPI ed follow up: Details: 63 yr old f here for f/u for AIH RECAP- index visit 04/2019 she was diagnosed with AIH and had been on imuran for 2 yrs (50 mg) but was then changed to 6 tabs MTX weekly and folic acid daily, after imuran stopped but this was recommenced and the MTX stopped due to SE and rising LFT she was dx based on lab work per her report she had liver bx ordered by her ID specialist (she was seeing for assessment of hep c but she doesn;t have it) she had pain since liver bx (02/2019) but does admit maybe it was there before no vomiting but occ nausea sometimes has constipation, which exacerbates her abdo pain mentioned above--stool was hard, and she has to push appetite is not so good, can't say why weight was going down she had been having constipation, on oxycodone 10 mg daily on prednisone for lupus she was given movantik for opiate induced constipation and pentoxyfilin for possible SHARMA she was referred to Dr Desai for gallstones causing abdo pain, and had cholecystectomy 05/2020 h pylori f/u testing has been negative TESTS: she has abn AST/ALT on and off for last several years on review of [employer] [facility] 02/2019--normal LFT: 12/2018--normal, LFT 06/25-2019 mild AST, ALT elevation LFT: 09/2019--AST36, ALT 42, alk phos--103, bili 0.4 LFT- 11/2019- bili-nml, AST-37, ALT-39, alk phos- 92 LFT 12/2019-- AST-42,ALT,40, GGT 109, alk phos--nml, bili 0.6 HEAVEN 1:1280 ds DNA--pos LFT- 04/19/2020--AST94, ALT 87, alk phos 148, bili 0.5 LFT 08/2020--nml, protein high, Ig levels high, SPEP neg LFT 12/16-- bili 5, AST 96, ALT 239 ( Imuran had been stopped due to v high levels of 6 TG and ^ MMP -->14835) 6 TG <50, 6 MMp 1516 LFT 11/06/23 bili-0.4, AST 44, ALT 27, alk florinda 176, (INR from 08/17--1.0) LFT 06/20 - AST 55, ALT 57, alk phos 177, (INR 1 from 02/17) vitamin A level had been low--improved with replacement BIOPSY: liver bx with grade 1, stage 4 cirrhosis, mixed macro and microvesicular steatosis, and background steatohepatitis IMAGING: MRI 05/18-- adenitis, cirrhosis, no mass lesions, few LNs Upper GI series: moderate GERD< nml stomach and duodenum US 11/2021- cirrhosis, no mass GES- 2021- nml EGD/colonoscopy- 04/2021-- esophagitis, gastritis, h pylori noted, x 1Ta removed, MRI 03/2021-- nodular liver, venous collaterals, MRI 08/2020--stable LN, liver with borderline steatosis, no mass lesions MRI 05/2020--upper abdo LN--stable, cirrhosis of liver noted CT 12/2019--liver calcifications, retroperitoneal LNs, gallstones u/s 10/2019--gallstones, adenomyomatosis, F3-4 elastography u/s 11/2018--coarse liver, no masses, CT 2017--mildly enalrged LN, hepatic granulomas, central mesenteric stranding EGD 04/2019--reflux, no varices EGD 10/17: no varices, patulous LEs, possible gastroparesis -balloon dilation of UES CT 06/20- stable cirrhosis, stable lymphadenopathy, no masses INTERIM: She went to the ED 5 d ago RUQ discomfort, nausea and vomiting she went to the ED she had CT, she has improvement in sx, but still feels tired she has been on prednisone 20 mg EXAM: GENERAL: The patient is well developed and nontoxic. VITAL SIGNS:see workflow HEENT: Nonicteric sclerae, PERRLA, EOMI. Oropharynx clear. Moist mucous membranes. Conjunctivae appear well perfused. No thyroid mass. CHEST: Chest wall is nontender. HEART: Regular rate and rhythm without murmurs. LUNGS: Clear to auscultation bilaterally. ABDOMEN: Soft, positive bowel sounds, mild tender RUQ, no organomegaly, lipoma felt SKIN: No rash, no excessive bruising, petechiae, or purpura. NEUROLOGIC: Cranial nerves II-XII intact without motor/sensory deficit. joints: no swelling Assessments 1. Cirrhosis of liver-suspected from combination of AIH and SHARMA, SLE--on imuran 75 mg, still with elevated LFT--added pred 20 mg daily 2. Gallstones AND ADENOMYOMATOSIS, s/p cholecystectomy by Dr Desai- 3. constipation-opiate related with bloating, maybe causing gastroparesis 4. weight loss, possibly from uncontrolled inflammation and SLE 5. epigastric tenderness and nausea, ?gastritis PLAN: 1/ EGD 2/ US r/o retained or de brian CBD stones etc PFSH Medical History Trigger finger, left ring finger Lupus Cirrhosis Antiphospholipid antibody syndrome Leg pain, right Abdominal bloating Arthritis POOL (dyspnea on exertion) Gallstones Cirrhosis Nonalcoholic steatohepatitis (SHARMA) Autoimmune hepatitis High blood pressure Fibromyalgia Diabetes Surgical History History of heart artery stent Hx of cholecystectomy Hx of endoscopy History of colonoscopy History of shoulder surgery History of cataract surgery (2010) History of repair of right rotator cuff (08/2011) History of cervical discectomy (07/2009) History of carpal tunnel release Family History Father History of diabetes mellitus, type II History of hypertension History of heart bypass surgery Mother History of diabetes mellitus, type II Brother History of gout Paternal Uncle Cancer Paternal Aunt Cancer Social History Household Members: None Housing: Apartment Are you a primary district manager primary care sales to a significant other at home: No 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 Positive antismooth muscle antibody. Treated with azathioprine. Code(s): K75.4 - Autoimmune hepatitis Category: Medical Plan: see above (2) Cirrhosis: Code(s): K74.60 - Unspecified cirrhosis of liver Category: Medical Plan: see above Medications: New plecanatide (Trulance) 3 mg PO DAILY 30 tabs 3RF Coding Level of Care Code Est Pt Level 4 (52975) Diagnoses Chronic autoimmune hepatitis K75.4 Cirrhosis K74.60
[2024-07-06 11:20] VITALS: BP 120/61; PULSE 70
== END 2024-07-06 13:16 | disposition home or self-care (01) ==
PROVIDERS: PCP Internal Medicine; Visit Provider Internal Medicine Gastroenterology
DX: K75.4 Autoimmune hepatitis (principal); K74.60 Unspecified cirrhosis of liver
CPT/HCPCS: 99214

== ENCOUNTER → 2024-07-06 11:16 | Outpatient (BNVA) | payer MEDICARE, MEDICAID, SELFPAY ==
[2024-02-24 13:26] VITALS: BP 128/60; BMI 27.1
== END ==
PROVIDERS: PCP Internal Medicine; Visit Provider Internal Medicine Gastroenterology
DX: K75.4 Autoimmune hepatitis (principal); K74.60 Unspecified cirrhosis of liver
CPT/HCPCS: 99212

== ENCOUNTER → 2024-07-07 11:09 | Day surgery (SDC) | payer MEDICARE, MEDICAID, SELFPAY ==
[2024-02-24 13:26] VITALS: BP 128/60; BMI 27.1
--- NOTE | 2024-07-07 12:50 | PC.NURSE ---
dr. mccann and dr. tapia aware that patient took her jardiance yesterday. decision made that procedure will be rescheduled next week when patient has stopped medication for 3 days. IV was never placed. Patient left with all belongings meeting ride in lobby.
== END ==
LOC: HO.SSS 11:11
PROVIDERS: PCP Internal Medicine; Visit Provider Internal Medicine Gastroenterology
DX: K21.9 Gastro-esophageal reflux disease without esophagitis (principal); Z53.8 Procedure and treatment not carried out for other reasons; E11.9 Type 2 diabetes mellitus without complications; Z79.84 Long term (current) use of oral hypoglycemic drugs

== ENCOUNTER 2024-07-14 11:03 | Outpatient (REF) | payer MEDICARE, MEDICAID, SELFPAY ==
[2024-02-24 13:26] VITALS: BP 128/60; BMI 27.1
[2024-07-14 11:31] LABS: MANUAL DIFF FLAG NO
[2024-07-14 11:58] LABS: Basophils Absolute Auto 0.1 X10*3/uL (0.0-0.2); Basophils Percent Auto 1.5 % (0-2); Eosinophils Absolute Auto 0.1 X10*3/uL (0.0-0.4); Eosinophils Percent Auto 2.2 % (0-4); Hematocrit 38.8 % (37.0-47.0); Hemoglobin 12.1 g/dl (12.0-16.0); Imm Gran Abs Auto 0.01 X10*3/uL (0.00-0.03); Imm Gran Pct Auto 0.2 % (0.0-0.4); Lymphocytes Percent Auto 25.4 % (20-40); Mean Corpuscular HGB Conc 31.2 g/dl (31.0-35.0); Mean Corpuscular Hemoglobin 27.1 pg (27.0-33.0); Mean Platelet Volume 10.1 fL (9.4-12.3); Monocytes Absolute Auto 0.4 X10*3/uL (0.1-1.2); Monocytes Percent Auto 9.5 % (2-11); Neutrophils Absolute Auto 2.5 x10*3/uL (2.0-8.3); Neutrophils Percent Auto 61.2 % (45-73); Platelet Count 182 X10*3/uL (160-400); Red Blood Count 4.46 X10*6/uL (4.20-5.50); Red Cell Distribution Width 15.4 % (11.0-16.0); White Blood Count 4.1 X10*3/uL (4.8-10.8)
--- OUTSIDE RECORDS SUMMARY | 2024-07-14 12:13 | XMS_ITS | Encounter Summary ---
Author Organization [employer] Address [address] [place] [address] Care Team Providers Care Warranty Administrator Name Role Phone Unavailable Primary Care Provider Unavailabl e Encounter Details Date Type Department Care Team (Latest Contact Info) Description 04/29/2019 Abstract [facility] CONVERSIONS Dental, Provider, DDS Social History Tobacco Use Types Packs/Day Years Used Date Smoking Tobacco: Never Assessed Comments Unknown Sex and Gender Information Value Date Recorded Sex Assigned at Female 03/26/2022 10:20 AM EDT Legal Sex Female 10:20 AM EDT Gender Identity Female 03/26/2022 10:20 AM EDT Sexual Orientation Straight 03/26/2022 10 :20 AM EDT documented as of this encounter Plan of Treatment Upcoming Encounters Date Type Department Care Team (Late st Contact Info) Description 07/24/2024 10:30 AM EST Office Visit [facility] ADULT DENTAL [address] [place] [address] Vivar-WatersAlisha soliman, DDS [address] [place] [address] documented as of this encounter Visit Diagnoses Not on filedocumented in this encounter
--- OUTSIDE RECORDS SUMMARY | 2024-07-14 12:13 | XMS_ITS | Encounter Summary ---
Author Organization [employer] Address [address] [facility] 7t [place] [address] Care Team Providers Care Pharmacist Helper Name Role Phone Unavailable Primary Care Provider Unavailabl e Reason for Visit * Reason Onset Date Comments medication 08/27/2023 Encounter Details Date Type Department Care Team (Late Contact Info) Description 08/27/2023 Telephone [facility] ADULT DENTAL [address] [place] [address] Alisha Rodas DDS [address] [place] [address] medication Social History Tobacco Use Types Packs/Day Years Used Date Smoking Tobacco: Never Smokeless Tobacco: Never Alcohol Use Standard Drinks/Week Comments Never 0 (1 standard drink = 0.6 oz pur e alcohol) Comments Unknown Sex and Gender Information Value Date Recorded Sex Assigned at Female 03/26/2022 10:20 AM EDT Legal Sex Female 10:20 AM EDT Gender Identity Female 03/26/2022 10:20 AM EDT Sexual Orientation Straight 03/26/2022 10 :20 AM EDT documented as of this encounter Miscellaneous Notes * Telephone Encounter - Mallika Madrigal - 08/27/2023 1:49 PM EDT Patient stated there was going to be an antibiotic sent to the pharmacy. And nothing sent. documented in this encounter Plan of Treatment Upcoming Encounters Date Type Department Care Team (Late Contact Info) Description 07/24/2024 10:30 AM EST Office Visit [facility] ADULT DENTAL [address] [place] [address] Alisha Rodas, DDS [address] [place] [address] documented as of this encounter Visit Diagnoses Not on filedocumented in this encounter
--- OUTSIDE RECORDS SUMMARY | 2024-07-14 12:13 | XMS_ITS | Encounter Summary ---
Author Organization [employer] Address [address] 7t [place] [address] Care Team Providers Care Tube Sorter Name Role Phone Unavailable Primary Care Provider Unavailabl e Reason for Visit * Reason Onset Date Comments Appointment 09/11/2022 Encounter Details Date Type Department Care Team (Late st Contact Info) Description 09/11/2022 Telephone [facility] ADULT DENTAL [address] [place], [place] [phone] Rich Mancera DDS [address] [place], [place] [phone] Appointment Social History Tobacco Use Types Packs/Day Years [...] Orientation Straight 03/26/2022 10 :20 AM EDT COVID-19 Exposure Response Date Recorded In the last 10 days, have yo u been in contact with someone who was confirmed or suspected to have Coronavirus/COVID-19? No / Unsure 09/05/2022 9:18 AM EDT documented as of this encounter Miscellaneous Notes * Telephone Encounter - Lacey Bailey - 09/11/2022 9:50 AM EDT Radha Chong 1960 Patient stated that she came in on 09/05/2022 for extraction and also stated that she's still in a lot of pain and is a little swollen please advise. documented in this encounter Plan of Treatment Upcoming Encounters Date Type Department Care Team (Late st Contact Info) Description 07/24/2024 10:30 AM EST Office Visit [facility] ADULT DENTAL [address] [place] [address] Alisha Rodas, LESTER [address] [place] [address] documented as of this encounter Visit Diagnoses Not on filedocumented in this encounter
--- OUTSIDE RECORDS SUMMARY | 2024-07-14 12:13 | XMS_ITS | Encounter Summary ---
Author Organization [employer] Address [address] 7t [place] [address] Care Team Providers Care Automotive Machinist Apprentice Name Role Phone Unavailable Primary Care Provider Unavailabl e Encounter Details Date Type Department Care Team (Latest Contact Info) Description 02/15/2021 Abstract [facility] CONVERSIONS Dental, Provider, DDS Social History [...] Description 07/24/2024 10:30 AM EST Office Visit [facility] ADULT DENTAL [address] [place] [address] Vivar-Waters, Alisha, DDS [address] [place], [place] [phone] documented as of this encounter Visit Diagnoses Not on filedocumented in this encounter
--- OUTSIDE RECORDS SUMMARY | 2024-07-14 12:13 | XMS_ITS | Encounter Summary ---
Author Organization [employer] Address [address] [place] [address] Care Team Providers Care Face Cleaner Name Role Phone Unavailable Primary Care Provider Unavailabl e Encounter Details Date Type Department Care Team (Latest Contact Info) Description 09/06/2021 Abstract [facility] CONVERSIONS Dental, Provider, DDS Social History Tobacco [...] Description 07/24/2024 10:30 AM EST Office Visit [facility] ADULT DENTAL [address] [place] [address] Vivar-Waters, Alisha, DDS [address] [place], [place] [phone] documented as of this encounter Visit Diagnoses Not on filedocumented in this encounter
--- OUTSIDE RECORDS SUMMARY | 2024-07-14 12:13 | XMS_ITS | Encounter Summary ---
Author Organization [employer] Address [address] 7[address] [place] [address] Care Team Providers Care State Attorney Name Role Phone Unavailable Primary Care Provider Unavailabl e Reason for Visit * Reason Onset Date Comments Appointment 11/19/2022 Encounter Details Date Type Department Care Team (Late st Contact Info) Description 11/19/2022 Telephone [facility] ADULT DENTAL [address] [place] [address] Alisha Rodas DDS [address] [place], [place] [phone] Appointment Social History Tobacco Use Types Packs/Day [...] suspected to have Coronavirus/COVID-19? No / Unsure 11/08/2022 10:19 AM EDT documented as of this encounter Miscellaneous Notes * Telephone Encounter - Mallika Madrigal - 11/19/2022 9:08 AM EDT Patient cancelled 11/20 appt due to having to take care of grand daughter and she is looking to rs.She has her grand daughter until Saturday. Either way there is no room on the schedule on PAR side. It was a Per Dr. Waters appt. Can patient be rescheduled? DR documented in this encounter Plan of Treatment Upcoming Encounters Date Type Department Care Team (Late st Contact Info) Description 07/24/2024 10:30 AM EST Office Visit [facility] ADULT DENTAL [address] [place], [place] [phone] Alisha Rodas, LESTER [address] [place], [place] [phone] documented as of this encounter Visit Diagnoses Not on filedocumented in this encounter
--- OUTSIDE RECORDS SUMMARY | 2024-07-14 12:13 | XMS_ITS | Encounter Summary ---
Author Organization [employer] Address [address] [facility] 7t [place] [address] Care Team Providers Care Advertising Specialist Name Role Phone Unavailable Primary Care Provider Unavailabl e Reason for Referral * Medications - Closed Specialty Diagnoses / Procedures Referred By Ghada pabon Referred To Contact Alisha Rodas DDS [address] [place] [address] Phone: tel: fax: Referral ID Status Reason Start Date Expiration Date Visits Re quested Visits Authorized [id number] Closed 1 1 Encounter Details Date Type Department Care Team (Late st Contact Info) Description 08/28/2023 Orders Only [facility] ADULT DENTAL [address] [place] [address] Alisha Rodas DDS [address] [place] [address] Social History Tobacco Use Types Packs/Day Years [...] Description 07/24/2024 10:30 AM EST Office Visit [facility] ADULT DENTAL [address] [place] [address] Alisha Rodas DDS [address] [place] [address] documented as of this encounter Visit Diagnoses Not on filedocumented in this encounter
--- OUTSIDE RECORDS SUMMARY | 2024-07-14 12:13 | XMS_ITS | Clinical Summary ---
Author Organization [employer] Address [address] [facility] 7t [place] [address] Care Team Providers Care Harp Maker Name Role Phone Unavailable Primary Care Provider Unavailabl e Allergies Active Allergy Reactions Criticality Noted Date Comments Duloxetine High 12/13/2017 Other reaction(s): Dystonia Also shaking ??2017 Other reaction(s): Dystonia Also shaking ??2017 Other reaction(s): SHAKINESS Other reaction(s): Dystonia Also shaking ??2017 Duloxetine Hcl 08/27/2022 Meclizine Dizziness 02/05/2022 Medications oxyCODONE (Oxy-IR) 5 MG immediate release capsule Acti ve Sodium Fluoride (PreviDent 5000 Plus) 1.1 % cream Apply 1 mg to teeth 3 times daily. 1 g 3 3 Active Additional Information Patient not taking.Reported on 08/27/2023 albuterol (Ventolin HFA) 108 (90 Base) MCG/ACT inhaler Inhale 2 puffs every 4 (four) hours if needed. Active ascorbic acid (Vitamin C) 500 MG tablet TAKE 2 TABLETS (1,000 MG) BY MOUTH ONCE DAILY 3 Active aspirin 81 MG EC tablet Take 1 tablet by mouth at bed time. 9 Active atorvastatin (Lipitor) 20 MG tablet Take 1 tablet by mouth at bedtime. 3 Active cholecalciferol (Vitamin D-3) 25 MCG (1000 UT) capsule Active clonazePAM (KlonoPIN) 0.5 MG tablet Take 1 tablet by mouth every 8 (eight) hours. Active clopidogrel (Plavix) 75 MG tablet Take 75 mg by mouth in the morning. 2 Active cyclobenzaprine (Flexeril) 10 MG tablet 9 Active empagliflozin (Jardiance) 10 MG Take 1 tablet by mouth at bed time. 9 Active fluticasone (Flonase) 50 MCG/ACT nasal spray Administer 2 sprays into each nostril in the morning. 3 Active glipiZIDE (Glucotrol) 10 MG tablet Take 1 tablet by mouth in the morning. 2 Active FREESTYLE LITE test strip TEST BLOOD SUGAR THREE TIMES DAILY BEFORE MEALS 3 Active ibuprofen 800 MG tablet Take 1 tablet by mouth every 8 (eight) hours. 2 Active TRUEplus Lancets 33G misc TEST BLOOD SUGAR THREE TIMES DAILY BEFORE MEALS 3 Active lansoprazole (Prevacid) [address] capsule Take 30 mg by mouth in the morning. 1 Active linaCLOtide (Linzess) 290 MCG capsule Take 290 mcg by mouth in the morning. 3 Active Loratadine 10 MG capsule Active lisinopril 2.5 MG tablet Take 1 tablet by mouth in the morning. 2 Active LORazepam (Ativan) 0.5 MG tablet Take 0.5 mg by mouth if needed each day. 1 Active metFORMIN XR (Glucophage-XR) 500 MG 24 hr tablet Take 1,000 mg by mouth 2 times daily. 2 Active meloxicam (Mobic) 7.5 MG tablet Take 1 tablet by mouth at bed time. Active naproxen (Naprosyn) 500 MG tablet Take 500 mg by mouth if needed in the morning and at bedtime. 3 Active omeprazole (PriLOSEC) [address] capsule Take by mouth. A ctive omeprazole OTC (PriLOSEC OTC) 20 MG EC tablet 9 Active pregabalin (Lyrica) 75 MG capsule Take 1 capsule by mouth every 12 (twelve) hours. Active Active Problems Problem Noted Date Diagnosed Date History of tooth extraction 10/03/2023 Periodontal disease 09/26/2023 Complains of low back pain 08/13/2023 Type 2 diabetes mellitus 08/13/2023 Nonalcoholic steatohepatitis (SHARMA) 08/13/2023 Atherosclerotic heart diseas e of [place] coronary artery with other forms of angina pectoris 02/21/2023 Systemic lupus erythematosus 09/21/2019 Nocturia 12/13/2017 Abnormal liver function tests 06/06/2017 Bilateral low back pain with bilateral sciatica 06/06/2017 Cervical radiculopathy 06/06/2017 Depression 06/06/2017 Type 2 diabetes mellitus without complications 0 06/06/2017 Fatigue 06/06/2017 Gastroesophageal reflux disease 06/06/2017 Other cirrhosis of liver 06/06/2017 Respiratory abnormality 06/06/2017 Autoimmune hepatitis 12/25/2016 Overview (08/13/2023): dr roman Arthritis 09/17/2013 Diabetes mellitus 09/17/2013 Hypertension 09/17/2013 Immunizations Name Administration Dates Next Due Influenza injectable quadriv alent preservative free 02/21/2023,02/05/2022,04/07/2021,03/11,02/20/2019 Influenza, IIV3, injectable 09/23/2020,1 ,02/14/2012,04/30 Influenza, Unspecified 03/30/2010 Influenza, seasonal, injecta ble, preservative free 02/18/2024,02/21/2016 Influenza, seasonal, intrade rmal, preservative free 03/12/2013 Moderna Covid-19 Vaccine 6+ Bivalent 05/25/2022 PPD Test 07/27/2014 Pneumococcal Polysaccharide PPSV23 08/21/2011 Td (adult), 5 Lf tetanus tox oid, preservative free, adsorbed 01/23/2001 Tdap 11/17/2012 Social History Tobacco Use Types Packs/Day Years Used Date Smoking Tobacco: Never Smokeless Tobacco: Never Tobacco Cessation:Counseling Given: Not Answered Alcohol Use Standard Drinks/Week Comments Never 0 (1 standard drink = 0.6 oz pur e alcohol) Comments Unknown Sex and Gender Information Value Date Recorded Sex Assigned at Female 03/26/2022 10:20 AM EDT Legal Sex Female 10:20 AM EDT Gender Identity Female 03/26/2022 10:20 AM EDT Sexual Orientation Straight 03/26/2022 10 :20 AM EDT Last Filed Vital Signs Vital Sign Reading Time Taken Comments Blood Pressure 128/74 02/14/2024 9:47 AM EDT Pulse 69 02/14/2024 9:47 AM EDT Temperature - - Respiratory Rate - - Oxygen Saturation - - Inhaled Oxygen Concentration - - Weight - - Height - - Body Mass Index - - Plan of Treatment Upcoming Encounters Date Type Department Care Team (Late st Contact Info) Description 07/24/2024 10:30 AM EST Office Visit [facility] ADULT DENTAL [address] [place] [address] Vivar-WatersMargarette solimanmia, DDS [address] [place] [address] Health Maintenance Due Date Last Done Comments CT Colonography 1960 Colonoscopy 1960 Colorectal Cancer Screening 1960 Depression Screening 1960 FIT DNA/Cologuard 1960 FIT 1960 FOBT 1960 HIV Screening 1960 Lipid Panel 1960 SDOH Screening 1960 Sigmoidoscopy 1960 Diabetes: Foot Exam 1970 Eye Exam 1970 Alcohol/Substance Use Screening 1972 Hepatitis C Screening 1978 Hepatitis A Vaccines (1 of 2 - Risk 2-dose series) 09/03/1979 Zoster Vaccines (1 of 2) 09/03/1979 Pap Smear 1981 Cervical Cancer Screening 1990 HPV/Cotest 1990 Mammogram 2000 Pneumococcal Vaccine: 50+ Years (2 of 2 - PCV) 08/20/2012 08/21/2011 Hepatitis B Vaccines (1 of 3 - Risk 3-dose series) 2020 RSV Patients and Patients Aged 60 years or older (1 - Risk 60-74 years 1-dose series) 2020 DTaP/Tdap/Td Vaccines (2 - Td or Tdap) 11/17/2022 11/17/2012, 01/23/2001 Diabetes: Urine Protein Screening 09/06/2023 09/05/2022 COVID-19 Vaccine ( season) 2024 05/25/2022, 06/14/2021, 09/22/2020, Additional history exists Diabetes: Hemoglobin A1C 02/06/20242 024, 05/06/2023, 01/25/2023, Additional history exists Dental Oral Exam 02/27/2024 08/27/2023, 09/19/2022 Dental Prophylaxis 02/27/2024 08/27/2023 Dental X-Ray: Bitewings 12/20/2024 12/20/2023, 09/19 Tobacco Screening 02/13/2025 02/14/2024 Dental X-Ray: Full Mouth 09/20/2025 09/19/2022 Influenza Vaccine Completed 02/18/2024, , 02/05/2022, Additional history exists HIB Vaccines Aged Out No longer eligi ble based on patient's age to complete this topic HPV Vaccines Aged Out No longer eligi ble based on patient's age to complete this topic IPV Vaccines Aged Out No longer eligi ble based on patient's age to complete this topic Meningococcal Vaccine Aged Out No chantelle hanny eligible based on patient's age to complete this topic RSV under 20 months Aged Out No longe r eligible based on patient's age to complete this topic Rotavirus Vaccines Aged Out No longer eligible based on patient's age to complete this topic Procedures Procedure Name Priority Date/Time Associated Diagnosis Comments BITEWINGS - 2 RADIOGRAPHIC IMAGES Routine 12/20/2023 11:30 AM EDT Ill-fitting dentures PROPHYLAXIS - ADULT Routine 08/27/2023 1 1:00 AM EDT Dental plaque Dental calculus Encounter for dental examination Gingival recession, localized PERIODIC ORAL EVALUATION - ESTABLISHED PATIENT Routine 08/27/2023 11:00 AM EDT Dental plaque Dental calculus Encounter for dental examination Gingival recession, localized INTRAORAL - COMPLETE SERIES OF RADIOGRAPHIC IMAGES Routine 09/19/2022 10:30 AM EDT Encounter for dental examination Dental caries Teeth missing Tooth sensitivity to cold from Last 3 Months or Most Recently Relevant to Health Maintenance Insurance [facility] STANDARD MEDICARE DENTAL-[facility] MEDICAID STAND ADULT * Guarantor: Radha Chong I Account Type Relation to Patient Date of Phone Billing Address Personal/Family Self [facility] [address] [address]
[2024-07-14 12:20] LABS: Estimated Average Glucose 177 mg/dL; Hemoglobin A1C 198.8847 umol/L; Hemoglobin A1c % 7.8 % (<6.0); Total Hemoglobin (HGBA1C) 3216.5621 umol/L
[2024-07-14 13:20] LABS: Alanine Aminotransferase 28 U/L (0-31); Albumin Level 3.8 g/dL (3.5-5.0); Anion Gap 12 (12-20); Aspartate Amino Transferase 52 U/L (5-31); Bilirubin Total 0.5 mg/dL (0.0-1.0); Blood Urea Nitrogen 10 mg/dL (9-16); Calcium 9.2 mg/dL (8.4-10.2); Carbon Dioxide 25 mmol/L (22-29); Chloride 106 mmol/L (96-108); Cholesterol 129 mg/dL (<200); Estimated Glomerular Filt Rate > 60; Glucose Random 174 mg/dL (60-115); HDL Cholesterol 41 mg/dL (>40); LDL Cholesterol Calculated 67 mg/dL (<100); Potassium 4.2 mmol/L (3.3-5.1); Sodium 139 mmol/L (135-145); Total Protein 9.5 g/dL (6.5-8.0); Triglycerides 108 mg/dL (<150)
[2024-07-14 13:32] LABS: Alkaline Phosphatase 131 U/L (39-117)
[2024-07-14 13:38] LABS: TSH reflex Free T4 3.53 uIU/mL (0.32-4.0)
== END 2024-07-14 11:04 | disposition home or self-care (01) ==
LOC: HO.LAB 11:03
PROVIDERS: PCP Internal Medicine; Visit Provider Internal Medicine
DX: E11.9 Type 2 diabetes mellitus without complications (principal)
CPT/HCPCS: 36415; 80053; 80061; 83036; 84443; 85025

== ENCOUNTER 2024-07-22 08:36 | Day surgery (SDC) | payer MEDICARE, MEDICAID, SELFPAY ==
[2024-07-15 09:17] VITALS: BP 128/60; BMI 27.1
--- OUTSIDE RECORDS SUMMARY | 2024-07-17 12:42 | XMS_ITS | Encounter Summary ---
Author Organization [employer] Address [address] 7[address] [place] [address] Care Team Providers Care Fleecer Name Role Phone Unavailable Primary Care Provider Unavailabl e Reason for Visit * Reason Onset Date Comments Appointment 09/11/2022 Encounter Details Date Type Department Care Team (Late st Contact Info) Description 09/11/[address] [facility] ADULT DENTAL [address] [place], [place] [phone] Rich Mancera DDS [address] [place], [place] [phone] Appointment Social History Tobacco Use Types Packs/Day [...] Description 07/24/2024 10:30 AM EST Office Visit [facility] ADULT DENTAL [address] [place] [address] Alisha Rodas, LESTER [address] [place] [address] documented as of this encounter Visit Diagnoses Not on filedocumented in this encounter
--- OUTSIDE RECORDS SUMMARY | 2024-07-17 12:43 | XMS_ITS | Encounter Summary ---
Author Organization [employer] Address [address] 7[address] [place] [address] Care Team Providers Care Blast Furnace Tender Name Role Phone Unavailable Primary Care Provider Unavailabl e Encounter Details Date Type Department Care Team (Latest Contact Info) Description 09/06/2021 Abstract [facility] CONVERSIONS Dental, Provider, DDS Social History [...] Description 07/24/2024 10:30 AM EST Office Visit [facility] ADULT DENTAL [address] [place] [address] Vivar-Waters, Alisha, DDS [address] [place], [place] [phone] documented as of this encounter Visit Diagnoses Not on filedocumented in this encounter
--- OUTSIDE RECORDS SUMMARY | 2024-07-17 12:43 | XMS_ITS | Encounter Summary ---
Author Organization [employer] Address [address] 7[address] [place] [address] Care Team Providers Care Sec Reporting Consultant Name Role Phone Unavailable Primary Care Provider Unavailabl e Encounter Details Date Type Department Care Team (Latest Contact Info) Description 04/29/2019 Abstract [facility] CONVERSIONS Dental, Provider, DDS Social History [...] Description 07/24/2024 10:30 AM EST Office Visit [facility] ADULT DENTAL [address] [place] [address] Vivar-WatersAlisha soliman, DDS [address] [place] [address] documented as of this encounter Visit Diagnoses Not on filedocumented in this encounter
--- OUTSIDE RECORDS SUMMARY | 2024-07-17 12:43 | XMS_ITS | Clinical Summary ---
Author Organization [employer] Address [address] [facility] [address] 7t [place] [address] Care Team Providers Care Paper Sealer Name Role Phone Unavailable Primary Care Provider [...] (SHARMA) 08/13/2023 Atherosclerotic heart diseas e of [place] coronary artery with other forms of angina [...] Description 07/24/2024 10:30 AM EST Office Visit [facility] ADULT DENTAL [address] [place] [address] Vivar-WatersMargarette solimanmia, DDS [address] [place] [address] Health Maintenance Due Date Last Done Comments [...] Most Recently Relevant to Health Maintenance Insurance [facility] STANDARD MEDICARE DENTAL-[facility] MEDICAID STAND ADULT * Guarantor: Radha Chong I Account Type Relation to Patient Date of Phone Billing Address Personal/Family Self [facility] [address] [address]
--- OUTSIDE RECORDS SUMMARY | 2024-07-17 12:43 | XMS_ITS | Encounter Summary ---
Author Organization [employer] Address [address] [place] [address] Care Team Providers Care Blind Lacer Name Role Phone Unavailable Primary Care Provider Unavailabl e Reason for Visit * Reason Onset Date Comments Appointment 11/19/2022 Encounter Details Date Type Department Care Team (Late st Contact Info) Description 11/19/2022 Telephone [facility] ADULT DENTAL [address] [place] [address] Alisha Rodas DDS [address] [place], [place] [phone] Appointment Social History Tobacco Use Types Packs/Day [...] Description 07/24/2024 10:30 AM EST Office Visit [facility] ADULT DENTAL [address] [place], [place] [phone] Alisha Rodas, LESTER [address] [place], [place] [phone] documented as of this encounter Visit Diagnoses Not on filedocumented in this encounter
--- OUTSIDE RECORDS SUMMARY | 2024-07-17 12:43 | XMS_ITS | Encounter Summary ---
Author Organization [employer] Address [address] [facility] [address]t [place] [address] Care Team Providers Care Chief Clinical Dietitian Name Role Phone Unavailable Primary Care Provider Unavailabl e Reason for Referral * Medications - Closed Specialty Diagnoses / Procedures Referred By Ghada pabon Referred To Contact Alisha Rodas DDS [address] [place] [address] Phone: tel: fax: Referral ID Status Reason Start Date Expiration Date Visits Re quested Visits Authorized [id number] Closed 1 1 Encounter Details Date Type Department Care Team (Late st Contact Info) Description 08/28/2023 Orders Only [facility] ADULT DENTAL [address] [place] [address] Alisha Rodas DDS [address] [place] [address] Social History Tobacco Use Types Packs/Day Years [...] Description 07/24/2024 10:30 AM EST Office Visit [facility] ADULT DENTAL [address] [place] [address] Alisha Rodas DDS [address] [place] [address] documented as of this encounter Visit Diagnoses Not on filedocumented in this encounter
--- OUTSIDE RECORDS SUMMARY | 2024-07-17 12:43 | XMS_ITS | Encounter Summary ---
Author Organization [employer] Address [address] [facility] [address]t [place] [address] Care Team Providers Care Statistical Developer Name Role Phone Unavailable Primary Care Provider Unavailabl e Reason for Visit * Reason Onset Date Comments medication 08/27/2023 Encounter Details Date Type Department Care Team (Late Contact Info) Description 08/27/2023 Telephone [facility] ADULT DENTAL [address] [place] [address] Alisha Rodas DDS [address] [place] [address] medication Social History Tobacco Use Types Packs/Day [...] 10:30 AM EST Office Visit [facility] ADULT DENTAL [address] [place] [address] Alisha Rodas, DDS [address] [place] [address] documented as of this encounter Visit Diagnoses Not on filedocumented in this encounter
--- OUTSIDE RECORDS SUMMARY | 2024-07-17 12:43 | XMS_ITS | Encounter Summary ---
Author Organization [employer] Address [address] [facility] [address] [place] [address] Care Team Providers Care Police Lieutenant Precinct Name Role Phone Unavailable Primary Care Provider Unavailabl e Encounter Details Date Type Department Care Team (Latest Contact Info) Description 02/15/2021 Abstract [facility] CONVERSIONS Dental, Provider, DDS Social History Tobacco [...] Description 07/24/2024 10:30 AM EST Office Visit [facility] ADULT DENTAL [address] [place] [address] Vivar-Waters, Alisha, DDS [address] [place], [place] [phone] documented as of this encounter Visit Diagnoses Not on filedocumented in this encounter
[2024-07-20 13:51] VITALS: BMI 24.5
--- NOTE | 2024-07-21 09:19 | HO.ANESPROP2 ---
HPI - Anesthesia Eval Consult details Narrative: 63yo F for Upper Endoscopy Cirrhosis Follows [facility] [place] cardiology for CAD s/p stent 2021, stable angina. Last office visit 01/2024. Chronic burning CP and POOL likely noncardiac in nature Anesthesia Pre-Procedure Meds Is the patient on any of the following meds?: SGLT2 Inhib PMFSH Active Problems Active Problems: All Active Problems Malnutrition (Acute) Numbness and tingling of left hand (Acute) Painful arc syndrome of left shoulder (Acute) Long-term use of hydroxychloroquine (Acute) Right calf pain (Acute) GERD (gastroesophageal reflux disease) (Acute) Tear of medial meniscus of right knee (Acute) Dysphagia (Acute) Hyperlipidemia (Acute) S/P cardiac cath (Acute) S/P coronary artery stent placement (Acute) Osteoarthritis of right knee (Acute) Chronic autoimmune hepatitis (Acute) Coronary arteriosclerosis (Acute) Melena (Acute) POOL (dyspnea on exertion) (Acute) H. pylori infection (Acute) Cirrhosis (Acute) Antiphospholipid antibody positive (Acute) Lupus (Acute) Trigger finger, left ring finger (Acute) Lupus (Acute) Fibromyalgia (Acute) Diabetes (Acute) Gallstones (Acute) Past Medical History Medical History Trigger finger, left ring finger Cirrhosis Antiphospholipid antibody syndrome Leg pain, right Abdominal bloating Lupus Arthritis POOL (dyspnea on exertion) Gallstones Cirrhosis Nonalcoholic steatohepatitis (SHARMA) Autoimmune hepatitis High blood pressure Fibromyalgia Diabetes Family History Family History Father History of diabetes mellitus, type II History of hypertension History of heart bypass surgery Mother History of diabetes mellitus, type II Brother History of gout Paternal Uncle Cancer Paternal Aunt Cancer Family history of problems with anesthesia: No Surgical History Surgical History (Updated 07/20/24 @ 13:47 by Ariela Galvez RN) History of esophagogastroduodenoscopy (EGD) History of heart artery stent Hx of cholecystectomy Hx of endoscopy History of colonoscopy History of shoulder surgery History of cataract surgery (2010) History of repair of right rotator cuff (08/2011) History of cervical discectomy (07/2009) History of carpal tunnel release History of Problems with Anesthesia: No Social History Social History Household Members: None Housing: Apartment Are you a primary patient care assistant to a significant other at home: No 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 have visiting nurse or other home services: No Alcohol intake: never Patient Tobacco Use Status: Never used Tobacco service: No Current occupational status: disabled Meds Allergies Allergy/AdvReac Type Severity Reaction Status Date / Time duloxetine [From CYMBALTA] Allergy Intermediate SHAKINESS Verified 07/22/24 09:20 Home Medications ?Medication ?Instructions ?Recorded ?Confirmed ?Last Taken ?Type glipizide 10 mg tablet 10 mg PO DAILY 05/17/20 07/20/24 Unknown History albuterol sulfate 90 mcg/actuation 90 mcg inhalation BID PRN 06/06/20 07/20/24 Unknown History aerosol inhaler Shortness Of Breath fluticasone propionate 50 50 mcg intranasal DAILY PRN Nasal 06/06/20 07/20/24 Unknown History mcg/actuation nasal Congestion spray,suspension lorazepam 0.5 mg tablet 0.5 mg PO QID PRN Anxiety 06/07/20 07/20/24 Unknown History ondansetron 4 mg disintegrating 4 mg PO Q6-8H PRN Nausea 06/07/20 07/20/24 Unknown History tablet oxycodone 5 mg tablet 5 mg PO Q4-6H PRN Pain 06/07/20 07/20/24 Unknown History empagliflozin 25 mg tablet 25 mg PO DAILY 06/13/20 07/22/24 07/18/24 History (Jardiance) blood sugar diagnostic (FreeStyle #10 ea 02/25/23 07/07/24 Unknown History Lite Strips) cholecalciferol (vitamin D3) 25 25 mcg PO DAILY 02/25/23 07/20/24 Unknown History mcg (1,000 unit) tablet lisinopril 2.5 mg tablet 2.5 mg PO DAILY 02/25/23 07/20/24 Unknown History metformin 500 mg tablet,extended 1,000 mg PO BID 02/25/23 07/20/24 Unknown History release 24 hr nortriptyline 10 mg capsule 10 mg PO BEDTIME 04/03/24 07/20/24 Unknown History alcohol swabs (Alcohol Prep Pads) 1 pad topical TID 06/08/24 07/07/24 Unknown History lancets 33 gauge (TRUEplus Lancets) #100 ea 06/08/24 07/07/24 Unknown History Exam Height,Weight and Vital Signs: Height 5 ft 2 in Weight 60.781 kg Pertinent Lab Results Pertinent Lab Results: Laboratory Tests 07/14/24 11:31 WBC 4.1 L Hgb 12.1 Hct 38.8 Plt Count 182 Sodium 139 Potassium 4.2 Chloride 106 Carbon Dioxide 25 BUN 10 Creatinine 0.68 Narrative Narrative: EKG 06/2024 Vent. Rate : 73 BPM Atrial Rate : 73 BPM P-R Int : 156 ms QRS Dur : 70 ms QT Int : 366 ms P-R-T Axes : 53 27 42 degrees QTcB Int : 403 ms Normal sinus rhythm Normal ECG When compared with ECG of 25-Oct-2022 17:53, No significant change was found ECHO 2023 Conclusions: - The left ventricular systolic function is normal. The calculated ejection fraction is 59% by biplane method. - No obvious valvular pathology seen on this study. Assessment and Plan Assessment Anesthesia Assessment: Chart Reviewed Final Anesthetic Review Family History of Problems with Anesthesia: No History of Problems with Anesthesia: No
--- NOTE | 2024-07-22 09:22 | P.HPSUR_ITS ---
Pre-Procedural Eval Section A - 24 Hr Update-Section A only Date of Service: 07/22/24 Section B - Complete if H&P > 30 days Chief Complaint: Autoimmune hepatitis Relevant Family History (Specify if Yes): No Relevant Social History: None Present Medications: see Short Stay Collaborative assessment Medical History: Significant History (Trigger finger, left ring finger Cirrhosis Antiphospholipid antibody syndrome Leg pain, right Abdominal bloating Lupus Arthritis POOL (dyspnea on exertion) Gallstones Cirrhosis Nonalcoholic steatohepatitis (SHARMA) Autoimmune hepatitis High blood pressure Fibromyalgia Zaynab betes) History of Previous Operations: Relevant previous surgery/procedure and date(s) (History of esophagogastroduodenoscopy (EGD) History of heart artery stent Hx of cholecystectomy Hx of endoscopy History of colonoscopy History of shoulder surgery History of cataract surgery (2010) History of repair of right rotator cuff (08/2011) History of cervical discectomy (07/2009) History of ) Allergies: Allergies Allergy/AdvReac Type Severity Reaction Status Date / Time duloxetine [From CYMBALTA] Allergy Intermediate SHAKINESS Verified 07/22/24 09:20 Review of Systems Sugical H&P ROS: Negative: Constitution, Cardiovascular, Respiratory, Neurological, Psychiatric, Hem-Onc, Allergic/Immunologic, Gastrointestinal, Genitourinary, Musculoskeletal, Integumentary, Endocrine and Eyes/Ears/Nose/Throat Exam Surgical H&P Exam: Normal: HEENT, Normal: Heart, Normal: Lungs, Normal: Extremities, Normal: Abdomen, Normal: Skin and Normal: Neurological Plan Diagnosis/Plan: Unchanged I have reviewed the history and physical and performed a pertinent physical examination on my patient. No changes have occurred unless specified. Time Spent With Patient Time: Total time managing care of this patient today ____ minutes.
[2024-07-22 09:24] VITALS: BP 124/52; PULSE 84; RESP 16; TEMP 36.6; O2SAT 97; BMI 25.1
[2024-07-22] MEDS: Lactated Ringers 1,000 ML 100 ML IVCONT (09:37)
[2024-07-22 09:43] LABS: Glucose, Whole Blood 181 mg/dL (60-115)
--- NOTE | 2024-07-22 10:36 | W.PM.OPN ---
Operative Note Operative Note Date of Service: 07/22/24 Narrative: Procedure Description: EGD Indication: epigastric pain, cirrhosis Anesthesia: MAC FLEXIBLE TRANSORAL UPPER GASTROINTESTINAL ENDOSCOPY UPPER ENDOSCOPY Consent: Indications for the procedure and potential complications of bleeding, perforation, reaction to medications and missed diagnosis were discussed with the patient and informed consent was obtained. Instrument: Olympus GIF H 190 J mid size upper endoscope Monitoring: Vital signs and clinical assessment, continuous EKG monitoring, Pulse oximetry, Carbon Dioxide monitoring and blood pressure monitoring were done throughout the procedure. Procedure: The patient was placed in the left lateral decubitis position and pre-procedure medications were administered and a bite block was placed. The endoscope was inserted into the mouth and advanced under direct vision to the third part of duodenum. A careful inspection was made as the upper endoscope was withdrawn including a retroflexed examination of the proximal stomach; Findings and interventions are described below. Findings: Larynx:normal Esophagus: GE junction at 40 cm, diaphragm hiatus at 40 cm, irregular Z line, grade II varices noted, no red tran, collapsed with air insufflation Stomach: mild erythema . Biopsies were obtained. Grade 3 flap valve on retroflexed examination of the cardia with v lax LEs noted. There appeared to be reduced gastric movement. the pylorus also seemed tight, so was dilated with wire guided balloon to 20 mm with small tear noted Duodenum: Normal bulb and descending duodenum, bx taken Intervention: Biopsies as noted above, balloon dilation with wire Impression/Findings: gastritis patulous GEJ reduced gastric movement and tight pylorus PLAN: cont with PPI GERD precautions repeat EGD in 1 yr, recent CT without any liver masses, patent portal veins --will consider beta sharon at next O/V
[2024-07-22 10:42] VITALS: BP 117/52; PULSE 76; RESP 15; TEMP 36.4; O2SAT 94
[2024-07-22 10:45] VITALS: BP 111/60; PULSE 77; RESP 20; O2SAT 94
[2024-07-22 11:06] VITALS: BP 131/72; PULSE 84; RESP 18; TEMP 36.1; O2SAT 96
== END 2024-07-22 11:40 | disposition home or self-care (01) ==
PROVIDERS: PCP Internal Medicine; Visit Provider Internal Medicine Gastroenterology
PROC: 0DJ08ZZ Inspection of Upper Intestinal Tract, Via Natural or Artificial Opening Endoscopic (ICD-10-PCS; CPT 43235; principal; 2024-07-22 10:20)
DX: K74.60 Unspecified cirrhosis of liver (principal); I85.10 Secondary esophageal varices without bleeding; K31.1 Adult hypertrophic pyloric stenosis; K29.70 Gastritis, unspecified, without bleeding; K22.89 Other specified disease of esophagus; K31.89 Other diseases of stomach and duodenum; K22.9 Disease of esophagus, unspecified; K22.4 Dyskinesia of esophagus; K21.9 Gastro-esophageal reflux disease without esophagitis; K75.4 Autoimmune hepatitis; R06.00 Dyspnea, unspecified; E11.9 Type 2 diabetes mellitus without complications; I10 Essential (primary) hypertension; E78.5 Hyperlipidemia, unspecified; M32.9 Systemic lupus erythematosus, unspecified; Z95.5 Presence of coronary angioplasty implant and graft; Z79.899 Other long term (current) drug therapy; Z79.84 Long term (current) use of oral hypoglycemic drugs
CPT/HCPCS: 43245; 43239; 82947; 88305; 88313; 88342; C1726; J2003; J2704

== ENCOUNTER → 2024-07-22 08:36 | Outpatient (BNV) | payer MEDICARE, MEDICAID, SELFPAY ==
[2024-07-15 09:17] VITALS: BP 128/60; BMI 27.1
== END ==
PROVIDERS: PCP Internal Medicine; Visit Provider Internal Medicine Gastroenterology
DX: K74.60 Unspecified cirrhosis of liver (principal); I85.00 Esophageal varices without bleeding; K31.1 Adult hypertrophic pyloric stenosis; K29.70 Gastritis, unspecified, without bleeding; K31.84 Gastroparesis
CPT/HCPCS: 43239; 43245

== ENCOUNTER 2024-07-24 08:23 | Outpatient (REF) | payer MEDICARE, MEDICAID, SELFPAY ==
[2024-07-15 09:17] VITALS: BP 128/60; BMI 27.1
--- NOTE | ~2024-07-24 | FL_ITS ---
EXAMINATION: XR FLUOROSCOPY UPPER GI WITH AIR CLINICAL INFORMATION: Dysphagia. Recent EGD. COMPARISON: None TECHNIQUE: Fluoroscopic air contrast upper GI examination was performed utilizing standard techniques with thin and thick barium and effervescent granules. Numerous spot images were obtained. FINDINGS: Lateral cine images of the oropharynx and hypopharynx demonstrate normal swallow mechanism with normal epiglottic inversion and soft palate elevation. No tracheal penetration, glottic or subglottic aspiration identified. No nasopharyngeal reflux present. Hypopharyngeal structures appear normal without evidence of mass or diverticulum. There was no significant cricopharyngeal achalasia. Dual and single contrast images of the esophagus demonstrate a normal caliber and contour. There is felinization of the mid and distal esophageal mucosa. In addition, there is an irregular appearance of the distal esophageal mucosa at the level of the GE junction. No evidence of stricture, mass, or ulcerations identified. Esophageal peristalsis was normal. Surgical clips are present in the upper quadrant. No evidence of hiatus hernia identified. No significant gastroesophageal reflux was seen during the course of the examination and on reflux views. Dual contrast and single contrast images of the stomach demonstrated a normal contour. The areae gastricae have a thickened appearance, suggestive of gastritis. No masses or ulcerations are seen. Contrast freely passed into the gastric antrum and duodenal bulb without delay. Single and air-contrast images of the duodenal bulb demonstrate no abnormality. The duodenal sweep has a normal appearance, course, and mucosal fold appearance. The imaged proximal jejunum has a normal fold pattern and caliber. FLUOROSCOPY TIME: 3 minutes 13 seconds Number of Spot Images: 11 Number of Cine: 12 DOSE AREA PRODUCT: 1772 uGy-m2 (microgray-meter squared) FL/FL barium swallow IMPRESSION: 1. Felinization of the mid and distal esophageal mucosa. This is a benign finding associated chronic gastric esophageal reflux. While no gastroesophageal reflux was observed during this examination, suspect at least moderate reflux. 2. Varicoid filling defects within the distal esophageal submucosa at and above the level of the GE junction. These likely represent esophageal varices, as seen on recent EGD on 07/22/2024. 3. Thickened appearance of the gastric rugal folds, suggestive of gastritis. 4. Status post postcholecystectomy. This procedure was performed by Herman Bowers PA-C, and supervised by Dr. Molina Electronically signed by: Bj Molina MD 07/24/2024 05:09 PM [facility] [place]
--- OUTSIDE RECORDS SUMMARY | 2024-07-24 08:32 | XMS_ITS | Clinical Summary ---
Author Organization [employer] Address [address] [facility] [address] [place] [address] Care Team Providers Care Director Of Software Development Name Role Phone Unavailable Primary Care Provider [...] (SHARMA) 08/13/2023 Atherosclerotic heart diseas e of [place] coronary artery with other forms of angina [...] Mass Index - - Plan of Treatment Health Maintenance Due Date Last Done Comments [...] 09/22/2020, Additional history exists Diabetes: Hemoglobin A1C 02/06/2024 024, 05/06/2023, 01/25/2023, Additional history exists Dental [...] Most Recently Relevant to Health Maintenance Insurance [facility] STANDARD MEDICARE DENTAL-[facility] MEDICAID STAND ADULT
--- OUTSIDE RECORDS SUMMARY | 2024-07-24 08:32 | XMS_ITS | Encounter Summary ---
Author Organization [employer] Address [address] [place] [address] Care Team Providers Care Academic Associate Name Role Phone Unavailable Primary Care Provider Unavailabl e Reason for Visit * Reason Onset Date Comments Appointment 11/19/2022 Encounter Details Date Type Department Care Team (Late st Contact Info) Description 11/19/2022 Telephone [facility] ADULT DENTAL [address] [place] [address] Alisha Rodas DDS [address] [place], [place] [phone] Appointment Social History Tobacco Use Types Packs/Day [...] Dr. Waters appt. Can patient be rescheduled? documented in this encounter Plan of Treatment Not on file documented as of this encounter Visit Diagnoses Not on filedocumented in this encounter
--- OUTSIDE RECORDS SUMMARY | 2024-07-24 08:32 | XMS_ITS | Encounter Summary ---
Author Organization [employer] Address [address] [facility] [place] [address] Care Team Providers Care Computer Drafter Name Role Phone Unavailable Primary Care Provider Unavailabl e Reason for Visit * Reason Onset Date Comments Appointment 09/11/2022 Encounter Details Date Type Department Care Team (Late st Contact Info) Description 09/11/2022 Telephone [facility] ADULT DENTAL [address] [place], [place] [phone] Rich Mancera DDS [address] [place], [place] [phone] Appointment Social History Tobacco Use Types Packs/Day [...]
--- OUTSIDE RECORDS SUMMARY | 2024-07-24 08:32 | XMS_ITS | Encounter Summary ---
Author Organization [employer] Address [address] [place] [address] Care Team Providers Care Freelance Writer Name Role Phone Unavailable Primary Care Provider Unavailabl e Encounter Details Date Type Department Care Team (Latest Contact Info) Description 09/06/2021 Abstract [facility] CONVERSIONS Dental, Provider, DDS Social History [...] as of this encounter Plan of Treatment Not on file documented as of this encounter Visit Diagnoses Not on filedocumented in this encounter
--- OUTSIDE RECORDS SUMMARY | 2024-07-24 08:32 | XMS_ITS | Encounter Summary ---
Author Organization [employer] Address [address] [place] [address] [address] [place] [address] Care Team Providers Care Cement Mason Apprentice Name Role Phone Unavailable Primary Care Provider Unavailabl e Reason for Referral * Medications - Closed Specialty Diagnoses / Procedures Referred By Ghada t Referred To Contact Alisha Rodas DDS [address] [place] [address] Phone: tel: fax: Referral ID Status Reason Start Date Expiration Date Visits Re quested Visits Authorized [id number] Closed 1 1 Encounter Details Date Type Department Care Team (Late st Contact Info) Description 08/28/2023 Orders Only [facility] ADULT DENTAL [address] [place] [address] Alisha Rodas DDS [address] [place] [address] Social History Tobacco Use Types Packs/Day Years [...]
--- OUTSIDE RECORDS SUMMARY | 2024-07-24 08:32 | XMS_ITS | Encounter Summary ---
Author Organization [employer] Address [address] [facility] [address] [place] [address] Care Team Providers Care Cloth Picker Name Role Phone Unavailable Primary Care Provider Unavailabl e Reason for Visit * Reason Onset Date Comments medication 08/27/2023 Encounter Details Date Type Department Care Team (Late st Contact Info) Description 08/27/2023 Telephone [facility] ADULT DENTAL [address] [place] [address] Alisha Rodas, DDS [address] [place], [place] [phone] medication Social History Tobacco Use Types Packs/Day [...]
--- OUTSIDE RECORDS SUMMARY | 2024-07-24 08:32 | XMS_ITS | Encounter Summary ---
Author Organization [employer] Address [address] [place] [address] Care Team Providers Care Anodic Operator Name Role Phone Unavailable Primary Care Provider Unavailabl e Encounter Details Date Type Department Care Team (Latest Contact Info) Description 04/29/2019 Abstract [facility] CONVERSIONS Dental, Provider, DDS Social History Tobacco [...]
--- OUTSIDE RECORDS SUMMARY | 2024-07-24 08:32 | XMS_ITS | Encounter Summary ---
Author Organization [employer] Address [address] [place] [address] Care Team Providers Care Truck Loader Name Role Phone Unavailable Primary Care Provider Unavailabl e Encounter Details Date Type Department Care Team (Latest Contact Info) Description 02/15/2021 Abstract [facility] CONVERSIONS Dental, Provider, DDS Social History [...]
== END 2024-07-24 08:24 | disposition home or self-care (01) ==
LOC: HO.XRAY 08:23
PROVIDERS: PCP Internal Medicine; Visit Provider Internal Medicine Gastroenterology
DX: R13.10 Dysphagia, unspecified (principal)
CPT/HCPCS: 74220

== ENCOUNTER → 2024-07-24 08:24 | Outpatient (BNV) | payer MEDICARE, MEDICAID, SELFPAY ==
[2024-07-15 09:17] VITALS: BP 128/60; BMI 27.1
== END ==
PROVIDERS: PCP Internal Medicine; Visit Provider Physician Assistant Surgical
DX: R13.10 Dysphagia, unspecified (principal)
CPT/HCPCS: 74246; 74248

== ENCOUNTER 2024-08-05 14:33 | Outpatient (AMB) | payer MEDICARE, MEDICAID, SELFPAY ==
[2024-07-15 09:17] VITALS: BP 128/60; BMI 27.1
--- NOTE | 2024-08-05 15:04 | MHC.OFFVIS ---
Vital Signs 08/05/24 15:05 Height 5 ft 2 in Weight 136 lb 10.986 oz BMI 25.0 BP 120/52 L Blood Pressure Location Lt brachial Position Sitting Pulse 92 Pulse Source Pulse Oximeter Intake Visit Reasons: 6mth f/up-km pt Director Meetings Required: No Accompanied by: Self / Same As Patient Allergies duloxetine [From CYMBALTA] Allergy (Intermediate, Verified 07/22/24 09:20) SHAKINESS Medication List - Last Reconciled 08/05/24 by Jonathan Allred NP acetaminophen (Tylenol Extra Strength) 500 mg PO Q6H PRN albuterol sulfate 90 mcg/actuation 90 mcg inhalation BID PRN alcohol swabs (Alcohol Prep Pads) 1 pad topical TID ascorbic acid (vitamin C) (Vitamin C) 1,000 mg (2 x 500 mg) PO DAILY aspirin 81 mg PO DAILY azathioprine 75 mg (1.5 x 50 mg) PO DAILY blood sugar diagnostic (FreeStyle Lite Strips) As directed cholecalciferol (vitamin D3) 25 mcg PO DAILY empagliflozin (Jardiance) 25 mg PO DAILY fluticasone propionate 50 mcg/actuation 50 mcg intranasal DAILY PRN glipizide 10 mg PO DAILY lancets (TRUEplus Lancets) As directed lansoprazole 30 mg PO BID 30 days lisinopril 2.5 mg PO DAILY lorazepam 0.5 mg PO QID PRN metformin ER 1,000 mg PO BID metoprolol succinate ER 25 mg PO DAILY nortriptyline 10 mg PO BEDTIME nut.tx.gluc intol,lf,soy-fiber 0.08-1.5 gram-kcal/mL (Glucerna 1.5 Shaheen) 1 ea PO BID ondansetron 4 mg PO Q6-8H PRN oxycodone 5 mg PO Q4-6H PRN plecanatide (Trulance) 3 mg PO DAILY rosuvastatin 5 mg PO DAILY simethicone (Gas Relief (simethicone)) 125 mg PO BID-QID PRN sucralfate 10 mL PO BID thiamine HCl (vitamin B1) 100 mg PO DAILY walker As directed HPI Comments Details: This is a 63-year-old female patient presenting for a follow-up visit. Patient with medical history of hypertension, diabetes, hyperlipidemia, coronary artery disease status post RCA stenting in 2021, and GERD. The patient reports feeling well overall however, she has been experiencing burning chest pain over the past couple of days likely related to her GERD. She notes that her lansoprazole has been placed on hold due to an upcoming urea breath test for H pylori scheduled for next week. Since stopping the medication, her occur symptoms have become unbearable. The patient is currently taking her Carafate but it has not provided much relief. The patient is otherwise denying any exertional chest pain, shortness of breath, palpitations, dizziness, orthopnea, PND, leg edema, fatigue, presyncope, or syncope. [facility] Medical History Trigger finger, left ring finger Cirrhosis Antiphospholipid antibody syndrome Leg pain, right Abdominal bloating Lupus Arthritis POOL (dyspnea on exertion) Gallstones Cirrhosis Nonalcoholic steatohepatitis (SHARMA) Autoimmune hepatitis High blood pressure Fibromyalgia Diabetes Surgical History History of esophagogastroduodenoscopy (EGD) History of heart artery stent Hx of cholecystectomy Hx of endoscopy History of colonoscopy History of shoulder surgery History of cataract surgery (2010) History of repair of right rotator cuff (08/2011) History of cervical discectomy (07/2009) History of carpal tunnel release Family History Father History of diabetes mellitus, type II History of hypertension History of heart bypass surgery Mother History of diabetes mellitus, type II Brother History of gout Paternal Uncle Cancer Paternal Aunt Cancer Social History Household Members: None Housing: Apartment Are you a primary intensive care nurse to a significant other at home: No 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 have visiting nurse or other home services: No Alcohol intake: never Patient Tobacco Use Status: Never used Tobacco service: No Current occupational status: disabled Review of Systems Const Denies chills, Denies fatigue, Denies fever(s), Denies weight gain and Denies weight loss ENT Denies dizziness Card Denies chest pain, Denies leg edema, Denies lightheadedness, Denies palpitations, Denies dyspnea on exertion, Denies orthopnea and Denies other Resp Denies cough and Denies dyspnea on exertion GI Denies hematochezia and Denies change in stool character Musc Denies abnormal gait, Denies muscle weakness, Denies numbness, Denies radiating pain into limb and Denies tingling Neuro Denies abnormal gait, Denies dizziness, Denies numbness and Denies tingling Endo Denies fatigue and Denies palpitations Physical Exam Vital Signs: Last Vital Signs Pulse 92 08/05/24 15:05 BP 120/52 L 08/05/24 15:05 BMI result Body Mass Index 25.0 Const General: cooperative, healthy appearing, comfortable and no acute distress Orientation/consciousness: patient oriented x3 HEENT Head: Yes normal to inspection Neck Neck: Yes normal visual inspection, Yes trachea midline and Yes supple Chest Chest palpation & inspection: normal inspection of the chest Resp Effort & Inspection: normal respiratory effort Auscultation: clear to auscultation bilaterally, no crackles, no rales, no rhonchi and no wheezes Cardio Jugular venous distension: no JVD Palpation: normal PMI Rate: regular rate Rhythm: regular rhythm Heart sounds: S1 normal heart sound present, S2 normal heart sound present, no click, no gallops, no murmurs and no rubs Peripheral pulses: Peripheral pulses 2+ throughout GI Inspection: Yes normal to inspection Palpation (GI): Soft to palpation Auscultation: normal bowel sounds Skin General skin exam: no rashes or lesions noted Neuro General: patient oriented x3 Extrem General: Yes normal to inspection, No no pedal edema and No calf tenderness Psych Appearance: grossly normal Mental Status: mental status grossly normal Speech and movement: Normal speech and movement present Assessment & Plan Assessment & Plan (1) Coronary arteriosclerosis: Comment: right coronary stent - 11/2021 Code(s): I25.10 - Atherosclerotic heart disease of [place] coronary artery without angina pectoris Category: Medical Plan: 12/05/2021-patient underwent cardiac catheterization that showed 30% stenosis of the left main, mild luminal irregularities in the lad and left circumflex, 95 % stenosis in the mid RCA status post drug-eluting stent in the RCA. 03/24/2024-echo study showed normal EF 59%, with no valvular or wall motion abnormalities. Continue metoprolol, aspirin, lisinopril. Continue statin therapy. (2) Diabetes: Comment: NIDDM Code(s): E11.9 - Type 2 diabetes mellitus without complications Category: Medical Plan: Last A1c 7.8%, not at goal. Patient states her blood sugars at home have been anywhere between 40s to 120s on the current regimen and therefore was hesitant ongoing on any injections. Ideally her A1c should be less than 7.0%. We will refer her to endocrinology. (3) Hyperlipidemia: Code(s): E78.5 - Hyperlipidemia, unspecified Category: Medical Plan: Last LDL within goal. Continue Crestor as patient was unable to tolerate atorvastatin. Ideally, LDL goal less than 70. (4) Hypertension: Code(s): I10 - Essential (primary) hypertension Plan: Blood pressure is well-controlled. No med changes at this point. Advised to continue checking blood pressures at home. Ideally, blood pressure goal less than 130/80. Consulted with CORAL Martin from Gastro to see if patient can take Tums or Mylanta for her GERD symptoms as she is off the lansoprazole for now due to testings next week. Made patient aware okay to take Tums for now. Patient will follow-up in 6 months in the office, sooner if needed. In the interim, patient will call us with any concerns or change in symptoms. This note was generated using voice recognition software. While every effort has been made to ensure accuracy and proper consumer services advisor, there may be occasional errors that could affect the content or meaning of the described symptoms. Orders: Referrals Endocrinology Referral E11.9 - Type 2 diabetes mellitus without complications, I25.10 - Atherosclerotic heart disease of [place] coronary artery without angina pectoris Coding Level of Care Code Est Pt Level 4 (16349) Complex EM visit Add On G2211 Diagnoses Coronary arteriosclerosis I25.10 Diabetes E11.9 Hyperlipidemia E78.5 Hypertension I10 Time Spent (min) 34 Comment Time spent in reviewing the chart, test results, assessment, counseling and documentation.
[2024-08-05 15:05] VITALS: BP 120/52; PULSE 92; BMI 25.0
--- OUTSIDE RECORDS SUMMARY | 2024-08-05 17:11 | XMS_ITS | Encounter Summary ---
Author Organization [employer] Address [address] [facility] [address] [facility] 7t [place] [address] Care Team Providers Care Energy Systems Engineer Name Role Phone Unavailable Primary Care Provider Unavailabl e Reason for Referral * Medications - Closed Specialty Diagnoses / Procedures Referred By Ghada t Referred To Contact Alisha Rodas DDS [address] [place] [address] Phone: tel: fax: Referral ID Status Reason Start Date Expiration Date Visits Re quested Visits Authorized [id number] Closed 1 1 Encounter Details Date Type Department Care Team (Late st Contact Info) Description 08/28/2023 Orders Only [facility] ADULT DENTAL [address] [place] [address] Alisha Rodas DDS [address] [place] [address] Social History Tobacco Use Types Packs/Day Years [...]
--- OUTSIDE RECORDS SUMMARY | 2024-08-05 17:11 | XMS_ITS | Encounter Summary ---
Author Organization [employer] Address [address] [place] [address] Care Team Providers Care Drum Loader And Unloader Name Role Phone Unavailable Primary Care Provider Unavailabl e Encounter Details Date Type Department Care Team (Latest Contact Info) Description 02/15/2021 Abstract [facility] CONVERSIONS Dental, Provider, DDS Social History [...]
--- OUTSIDE RECORDS SUMMARY | 2024-08-05 17:11 | XMS_ITS | Encounter Summary ---
Author Organization [employer] Address [address] [place] [address] Care Team Providers Care Laborer Vegetable Farm Name Role Phone Unavailable Primary Care Provider Unavailabl e Reason for Visit * Reason Onset Date Comments Appointment 09/11/2022 Encounter Details Date Type Department Care Team (Late st Contact Info) Description 09/11/2022 Telephone [facility] ADULT DENTAL [address] [place], [place] [phone] Rich Mancera DDS [address] [place], [place] [phone] Appointment Social History Tobacco Use Types Packs/Day [...]
--- OUTSIDE RECORDS SUMMARY | 2024-08-05 17:11 | XMS_ITS | Encounter Summary ---
Author Organization [employer] Address [address] [place] [address] Care Team Providers Care Infantry Officer Name Role Phone Unavailable Primary Care Provider Unavailabl e Encounter Details Date Type Department Care Team (Latest Contact Info) Description 04/29/2019 Abstract [facility] CONVERSIONS Dental, Provider, DDS Social History Tobacco [...]
--- OUTSIDE RECORDS SUMMARY | 2024-08-05 17:11 | XMS_ITS | Encounter Summary ---
Author Organization [employer] Address [address] [place] [address] Care Team Providers Care Apparel Machinery Instructor Name Role Phone Unavailable Primary Care Provider Unavailabl e Reason for Visit * Reason Onset Date Comments Appointment 11/19/2022 Encounter Details Date Type Department Care Team (Late st Contact Info) Description 11/19/[address] [facility] ADULT DENTAL [address] [place] [address] Alisha Rodas DDS [address] [place], [place] [phone] Appointment Social History Tobacco Use Types Packs/Day [...]
--- OUTSIDE RECORDS SUMMARY | 2024-08-05 17:11 | XMS_ITS | Encounter Summary ---
Author Organization [employer] Address [address] [facility] [address]t [place] [address] Care Team Providers Care Certified Prosthetist Vice President Name Role Phone Unavailable Primary Care Provider Unavailabl e Reason for Visit * Reason Onset Date Comments medication 08/27/2023 Encounter Details Date Type Department Care Team (Late st Contact Info) Description 08/27/2023 Telephone [facility] ADULT DENTAL [address] [place] [address] Alisha Rodas, DDS [address] [place], [place] [phone] medication Social History Tobacco Use Types Packs/Day [...]
--- OUTSIDE RECORDS SUMMARY | 2024-08-05 17:11 | XMS_ITS | Encounter Summary ---
Author Organization [employer] Address [address] [place] [address] Care Team Providers Care Store Loss Prevention Manager Name Role Phone Unavailable Primary Care Provider Unavailabl e Encounter Details Date Type Department Care Team (Latest Contact Info) Description 09/06/2021 Abstract [facility] CONVERSIONS Dental, Provider, DDS Social History Tobacco [...]
--- OUTSIDE RECORDS SUMMARY | 2024-08-05 17:11 | XMS_ITS | Clinical Summary ---
Author Organization [employer] Address [address] [facility] 7t [place] [address] Care Team Providers Care Sample Mounter Name Role Phone Unavailable Primary Care Provider [...] (SHARMA) 08/13/2023 Atherosclerotic heart diseas e of [place] coronary artery with other forms of angina [...] Most Recently Relevant to Health Maintenance Insurance [facility] STANDARD MEDICARE DENTAL-[facility] MEDICAID STAND ADULT
== END 2024-08-05 15:45 | disposition home or self-care (01) ==
LOC: HO.HCS 14:33
PROVIDERS: PCP Internal Medicine
DX: I25.10 Atherosclerotic heart disease of native coronary artery without angina pectoris (principal); E11.9 Type 2 diabetes mellitus without complications; E78.5 Hyperlipidemia, unspecified; I10 Essential (primary) hypertension
CPT/HCPCS: 99214; G2211

== ENCOUNTER → 2024-08-05 14:33 | Outpatient (BNVA) | payer MEDICARE, MEDICAID, SELFPAY ==
[2024-07-15 09:17] VITALS: BP 128/60; BMI 27.1
== END ==
PROVIDERS: PCP Internal Medicine
DX: I25.10 Atherosclerotic heart disease of native coronary artery without angina pectoris (principal); E11.9 Type 2 diabetes mellitus without complications; E78.5 Hyperlipidemia, unspecified; I10 Essential (primary) hypertension
CPT/HCPCS: 99212

== ENCOUNTER 2024-08-10 10:35 | Outpatient (AMB) | payer MEDICARE, MEDICAID, SELFPAY ==
[2024-07-15 09:17] VITALS: BP 128/60; BMI 27.1
--- NOTE | 2024-08-10 10:57 | AM.OFFVISNUR ---
Intake Visit Reasons: H Pylori Intake Note: Patient presents for collection of H Pylori breath test. Patient has been fasting for 1 hour (nothing to eat, drink, no chewing gum or smoking) has not taken any antacid medication for at least 2 weeks and has no allergies to artificial sweeteners.?? Allergies duloxetine [From CYMBALTA] Allergy (Intermediate, Verified 07/22/24 09:20) [facility] Assessment & Plan Assessment & Plan (1) GERD (gastroesophageal reflux disease): Code(s): K21.9 - Gastro-esophageal reflux disease without esophagitis Category: Medical Plan Patient presents for collection of H Pylori breath test. Patient has been fasting for 1 hour (nothing to eat, drink, no chewing gum or smoking) has not taken any antacid medication for at least 2 weeks and has no allergies to artificial sweeteners.???This test checks for an overgrowth of bacteria in your stomach. We all have bacteria but some may have more than others. It is treatable. if the test comes back negative there is nothing else to do. If the test result is positive we will treat you with 2 antibiotics and a medication to decrease the acid in your stomach (PPI) for 2 weeks. Two weeks after you have completed the treatment we will retest you to make sure the overgrowth has resolved. Orders: Orders H Pylori Breath Test Today Patient Instructions: Process for specimen collection and reason for testing was explained to the patient. Specimen collection. Patient instructed to take a deep breath and then exhale into the blue bag, filling it up as much as possible. Patient instructed to drink a mixture of water and the artificial sweetener with a straw. A 15 minute wait period was observed. Patient instructed to take a deep breath and then exhale into the pink bag, filling it up as much as possible.?? Coding Level of Care Code Established Pt Est Pt Level 1 (12326) Patient Type Established Medical Decision Making Straight Forward Diagnoses GERD (gastroesophageal reflux disease) K21.9
--- OUTSIDE RECORDS SUMMARY | 2024-08-10 11:59 | XMS_ITS | Encounter Summary ---
Author Organization [email or web address] Address [address] [place] [address] Care Team Providers Care Bilingual Medical Assistant Name Role Phone Unavailable Primary Care Provider Unavailabl e Encounter Details Date Type Department Care Team (Latest Contact Info) Description 09/06/2021 Abstract [facility] CONVERSIONS Dental, Provider, DDS Social [...]
--- OUTSIDE RECORDS SUMMARY | 2024-08-10 11:59 | XMS_ITS | Encounter Summary ---
Author Organization [employer] Address [address] [facility] [address] [place] [address] Care Team Providers Care Movement Assembler Name Role Phone Unavailable Primary Care Provider Unavailabl e Reason for Referral * Medications - Closed Specialty Diagnoses / Procedures Referred By Ghada t Referred To Contact Alisha Rodas DDS [address] [place] [address] Phone: tel: fax: Referral ID Status Reason Start Date Expiration Date Visits Re quested Visits Authorized [id number] Closed 1 1 Encounter Details Date Type Department Care Team (Late st Contact Info) Description 08/28/2023 Orders Only [facility] ADULT DENTAL [address] [place] [address] Alisha Rodas DDS [address] [place] [address] Social History Tobacco Use Types Packs/Day Years [...]
--- OUTSIDE RECORDS SUMMARY | 2024-08-10 11:59 | XMS_ITS | Clinical Summary ---
Author Organization [employer] Address [address] [facility] [address] [place] [address] Care Team Providers Care Decorating Inspector Name Role Phone Unavailable Primary Care Provider [...] (SHARMA) 08/13/2023 Atherosclerotic heart diseas e of [place] coronary artery with other forms of angina [...] Most Recently Relevant to Health Maintenance Insurance [facility] STANDARD MEDICARE DENTAL-[facility] MEDICAID STAND ADULT
--- OUTSIDE RECORDS SUMMARY | 2024-08-10 11:59 | XMS_ITS | Encounter Summary ---
Author Organization [employer] Address [address] [place] [address] Care Team Providers Care Aviation Survival Technician Name Role Phone Unavailable Primary Care Provider Unavailabl e Encounter Details Date Type Department Care Team (Latest Contact Info) Description 02/15/2021 Abstract [facility] CONVERSIONS Dental, Provider, DDS Social History [...]
--- OUTSIDE RECORDS SUMMARY | 2024-08-10 11:59 | XMS_ITS | Encounter Summary ---
Author Organization [employer] Address [address] [place] [address] Care Team Providers Care Vice President Of Engineering Name Role Phone Unavailable Primary Care Provider Unavailabl e Encounter Details Date Type Department Care Team (Latest Contact Info) Description 04/29/2019 Abstract [facility] CONVERSIONS Dental, Provider, DDS Social History [...]
--- OUTSIDE RECORDS SUMMARY | 2024-08-10 11:59 | XMS_ITS | Encounter Summary ---
Author Organization [employer] Address [address] [place] [address] Care Team Providers Care Head Cook Name Role Phone Unavailable Primary Care Provider Unavailabl e Reason for Visit * Reason Onset Date Comments Appointment 11/19/2022 Encounter Details Date Type Department Care Team (Late st Contact Info) Description 11/19/2022 Telephone [facility] ADULT DENTAL [address] [place] [address] Alisha Rodas DDS [address] [place], [place] [phone] Appointment Social History Tobacco Use Types Packs/Day [...]
--- OUTSIDE RECORDS SUMMARY | 2024-08-10 11:59 | XMS_ITS | Encounter Summary ---
Author Organization [employer] Address [address] [facility] [address]t [place] [address] Care Team Providers Care Lease Out Worker Name Role Phone Unavailable Primary Care Provider Unavailabl e Reason for Visit * Reason Onset Date Comments medication 08/27/2023 Encounter Details Date Type Department Care Team (Late st Contact Info) Description 08/27/2023 Telephone [facility] ADULT DENTAL [address] [place] [address] Alisha Rodas, DDS [address] [place], [place] [phone] medication Social History Tobacco Use Types Packs/Day [...]
--- OUTSIDE RECORDS SUMMARY | 2024-08-10 11:59 | XMS_ITS | Encounter Summary ---
Author Organization [employer] Address [address] [place] [address] Care Team Providers Care Concrete Spreader Name Role Phone Unavailable Primary Care Provider Unavailabl e Reason for Visit * Reason Onset Date Comments Appointment 09/11/2022 Encounter Details Date Type Department Care Team (Late st Contact Info) Description 09/11/2022 Telephone [facility] ADULT DENTAL [address] [place], [place] [phone] Rich Mancera DDS [address] [place], [place] [phone] Appointment Social History Tobacco Use Types Packs/Day [...]
== END 2024-08-10 11:10 | disposition home or self-care (01) ==
LOC: HO.HGI 10:35
PROVIDERS: PCP Internal Medicine; Visit Provider Internal Medicine Gastroenterology
DX: K21.9 Gastro-esophageal reflux disease without esophagitis (principal)

== ENCOUNTER 2024-08-10 11:10 | Outpatient (REF) | payer MEDICARE, MEDICAID, SELFPAY ==
[2024-07-15 09:17] VITALS: BP 128/60; BMI 27.1
[2024-08-13 11:45] LABS: H Pylori Breath Test Negative (Negative)
== END 2024-08-10 11:11 | disposition home or self-care (01) ==
LOC: HO.LNP 11:10
PROVIDERS: Visit Provider Internal Medicine Gastroenterology
DX: Z11.0 Encounter for screening for intestinal infectious diseases (principal)
CPT/HCPCS: 83013; 99211

== ENCOUNTER 2024-08-28 09:54 | Outpatient (AMB) | payer MEDICARE, MEDICAID, SELFPAY ==
[2024-07-15 09:17] VITALS: BP 128/60; BMI 27.1
--- NOTE | 2024-08-28 07:54 | A.OFFVIS_ITS ---
Vital Signs 08/28/24 10:15 Height 5 ft 2 in Weight 136 lb 10.986 oz BMI 25.0 BP 108/70 Blood Pressure Location Rt brachial Position Sitting Pulse 83 Pulse Source Pulse Oximeter Pulse Oximetry (%) 96 Oxygen Delivery Method Room Air Intake Visit Reasons: T2DM Intake Note: NEW Patient presents today to establish treatment for Type 2 Diabetes Mellitus: Last Diabetic eye exam was on: DUE Last Podiatry exam was on: Patient does not see a Hall Porter Most recent HbA1c: 7.8%, 07/14/2024 Random Glucose- 157 mg/dL, Today Plasma Processing Centrifuge Operator Required: No Accompanied by: Self / Same As Patient Allergies duloxetine [From CYMBALTA] Allergy (Intermediate, Verified 08/28/24 10:18) JUVE HPI Comments Details: [age] YO female who is seen in consultation for T2DM at the request of PCP. Initially diagnosed with T2DM in 2008. Saw endocrinology in the past and was discharged due to normal A1C Was initially started on treatment with: metformin januvia was ineffective Current regimen: Glipizide 10 mg Jardiance 25 mg metformin ER 1000mg Checks sugars: once daily. She checks in the am 140-150 occasionally tests later in the day 200 average at times in the afternoon it is 78 and she feels low Last night she was 122 and felt weak and shaky Treats lows with oj, soda doesn't recheck afterward Most recent A1C 7.8% on 07/14/24 up from previous 7.1% 03/19/25. [facility] screen Family history of T2DM: mother, father, aunts Denies retinopathy: eyes checked yearly, last eye exam one year ago Has neuropathy, some burning pain does not see podiatry [Denies] nephropathy, on [LESLEE/ARB]. UAC [] s measured on []. [Has] HLD, on [statin]. Last LDL [] as measured on []. Has CAD stent 2022 Sees cardiology every 6 months Followed by Rheumatology for lupus Diet: breakfast skips first time she eats is at 12 pm 2 eggs, bower, hash browns or tajik toast with bananas doesn't eat anything or supper or may have small sandwich Weight: stable lost several pounds over the last year previously had been 150 No recent diabetes education. ] [facility] Medical History Trigger finger, left ring finger Cirrhosis Antiphospholipid antibody syndrome Leg pain, right Abdominal bloating Lupus Arthritis POOL (dyspnea on exertion) Gallstones Cirrhosis Nonalcoholic steatohepatitis (SHARMA) Autoimmune hepatitis High blood pressure Fibromyalgia Diabetes Surgical History History of esophagogastroduodenoscopy (EGD) History of heart artery stent Hx of cholecystectomy Hx of endoscopy History of colonoscopy History of shoulder surgery History of cataract surgery (2010) History of repair of right rotator cuff (08/2011) History of cervical discectomy (07/2009) History of carpal tunnel release Family History Father History of diabetes mellitus, type II History of hypertension History of heart bypass surgery Mother History of diabetes mellitus, type II Brother History of gout Paternal Uncle Cancer Paternal Aunt Cancer Social History Household Members: None Housing: Apartment Are you a primary critical care unit nurse to a significant other at home: No 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 have visiting nurse or other home services: No Alcohol intake: never Patient Tobacco Use Status: Never used Tobacco service: No Current occupational status: disabled Physical Exam Vital Signs: Last Vital Signs Pulse 83 08/28/24 10:15 BP 108/70 08/28/24 10:15 Pulse Ox 96 08/28/24 10:15 Oxygen Delivery Method Room Air 08/28/24 10:15 BMI result Body Mass Index 25.0 Absence of Cushingoid features. Absence of acromegalic features. Neck exam reveals nl size thyroid about 15 gms. No thyroid nodules palpable. No carotid bruits present. Lungs CTA. Heart S1 S2, Reg R/R. No M/R/ G. Skin exam reveals ab sence of vitiligo or acanthosis nigricans. Abdominal exam reveals Soft NT/ND with NA BS. No organomegaly present. Const Other: Absence of Cushingoid features. Absence of acromegalic features. Neck exam reveals nl size thyroid about 15 gms. No thyroid nodules palpable. No carotid bruits present. Lungs CTA. Heart S1 S2, Reg R/R. No M/R G. Skin exam reveals absence of vitiligo or acanthosis nigricans. No edema Visual exam of foot performed. No ulcerations or open lesions. No inter digit maceration or fissuring. No onychomycosis, no callouses. Sensation intact to monofilament exam. Vibratory sensation is normal with 128 Hz tuning fork. Neck Other: . Extrem Other: Visual exam of foot performed. No ulcerations or open lesions. No onchomycosis, no callouses.Pulses 2 + distally Sensation intact to monofilament exam. Vibratory sensation sensed is intact with 128 Hz tuning fork Results Reviewed Results Reviewed: Laboratory Last Values Glucose (Clinic) 157 mg/dL (60-115) H 08/28/24 10:22 Assessment & Plan Assessment & Plan (1) Diabetes: Comment: NIDDM Code(s): E11.9 - Type 2 diabetes mellitus without complications Category: Medical Plan: 64-year-old type 2 diabetic with symptomatic lows on glipizide. She was asked to restart Lantus at 10 units. She was on Lantus for many years and is familiar with dosing and insulin admin technique. She will return to clinic in approximately 1 week to review doses. stop glipizide continue metformin and Jardiance The patient had an opportunity to ask questions regarding treatment plan. The patient expressed understanding and agreement with the above treatment plan. The patient is aware they should contact our office by phone for worsening glucose readings or for any low blood sugars which may warrant a change in diabetes medication. Compliance is encouraged with medications and any followup testing/consults which may have been ordered. Medications: New Lantus Solostar U-100 Insulin (insulin glargine) 10 units (0.1 mL) subcut QPM 30 days 3 mL 3RF NS pen needle, diabetic once daily 100 ea 3RF Patient Instructions: Take 15 carb carbohydrate grams to treat a low sugar (3-4 glucose tablets, half a glass of juice or 15 carbohydrate grams of soft candy such as gummie snacks). Recheck your sugar in 15 minutes and re-treat again with 15 carbohydrate grams if low or still with symptoms. Do not drive a car or operate machinery if you do not know what your blood sugar is, if it is low or in excess of 300. The patient was counseled to achieve a target A1C of 7% (154 avg). Fasting blood sugars should be 90-130 in the morning and less than 180 two hours after meals. Reviewed the relationship between poor diabetic control and the development of complications. Coding Level of Care Code Est Pt Level 4 (23818) Complex EM visit Add On G2211 Diagnoses Diabetes E11.9 Time Spent (min) 30 Comment Time spent reviewing labs/provider notes, face to face, chart doc
[2024-08-28 10:15] VITALS: BP 108/70; PULSE 83; O2SAT 96; BMI 25.0
[2024-08-28 10:26] LABS: Glucose, Whole Blood 157 mg/dL (60-115)
--- OUTSIDE RECORDS SUMMARY | 2024-08-28 11:09 | XMS_ITS | Encounter Summary ---
Author Organization [employer] Address [address] [place] [address] Care Team Providers Care Derrick Boat Runner Name Role Phone Unavailable Primary Care Provider Unavailabl e Encounter Details Date Type Department Care Team (Latest Contact Info) Description 02/15/2021 Abstract [facility] CONVERSIONS Dental, Provider, DDS Social History [...]
--- OUTSIDE RECORDS SUMMARY | 2024-08-28 11:09 | XMS_ITS | Encounter Summary ---
Author Organization [employer] Address [address] [place] [address] Care Team Providers Care Glacing Machine Tender Name Role Phone Unavailable Primary Care Provider Unavailabl e Reason for Visit * Reason Onset Date Comments Appointment 11/19/2022 Encounter Details Date Type Department Care Team (Late st Contact Info) Description 11/19/2022 Telephone [facility] ADULT DENTAL [address] [place] [address] Alisha Rodas DDS [address] [place], [place] [phone] Appointment Social History Tobacco Use Types Packs/Day [...]
--- OUTSIDE RECORDS SUMMARY | 2024-08-28 11:09 | XMS_ITS | Encounter Summary ---
Author Organization [employer] Address [address] [place] [address] Care Team Providers Care Processing Tech Name Role Phone Unavailable Primary Care Provider Unavailabl e Encounter Details Date Type Department Care Team (Latest Contact Info) Description 09/06/2021 Abstract [facility] CONVERSIONS Dental, Provider, DDS Social History Tobacco [...]
--- OUTSIDE RECORDS SUMMARY | 2024-08-28 11:09 | XMS_ITS | Encounter Summary ---
Author Organization [employer] Address [address] [place] [address] Care Team Providers Care Gin Inspector Name Role Phone Unavailable Primary Care Provider Unavailabl e Reason for Visit * Reason Onset Date Comments Appointment 09/11/2022 Encounter Details Date Type Department Care Team (Late st Contact Info) Description 09/11/2022 Telephone [facility] ADULT DENTAL [address] [place], [place] [phone] Rich Mancera DDS [address] [place], [place] [phone] Appointment Social History Tobacco Use Types Packs/Day [...]
--- OUTSIDE RECORDS SUMMARY | 2024-08-28 11:09 | XMS_ITS | Clinical Summary ---
Author Organization [employer] Address [address] [place] [address] Care Team Providers Care Fire Patrol Name Role Phone Unavailable Primary Care Provider [...] (SHARMA) 08/13/2023 Atherosclerotic heart diseas e of [place] coronary artery with other forms of angina [...] Most Recently Relevant to Health Maintenance Insurance [facility] STANDARD MEDICARE DENTAL-[facility] MEDICAID STAND ADULT
--- OUTSIDE RECORDS SUMMARY | 2024-08-28 11:09 | XMS_ITS | Encounter Summary ---
Author Organization [employer] Address [address] [place] [address] Care Team Providers Care Cutting Torch Operator Name Role Phone Unavailable Primary Care Provider Unavailabl e Reason for Visit * Reason Onset Date Comments medication 08/27/2023 Encounter Details Date Type Department Care Team (Late st Contact Info) Description 08/27/2023 Telephone [facility] ADULT DENTAL [address] [place] [address] Alisha Rodas, DDS [address] [place], [place] [phone] medication Social History Tobacco Use Types Packs/Day [...]
--- OUTSIDE RECORDS SUMMARY | 2024-08-28 11:09 | XMS_ITS | Encounter Summary ---
Author Organization [employer] Address [address] [place] [address] 7t [place] [address] Care Team Providers Care Military Professional Name Role Phone Unavailable Primary Care Provider Unavailabl e Reason for Referral * Medications - Closed Specialty Diagnoses / Procedures Referred By Ghada t Referred To Contact Alisha Rodas DDS [address] [place] [address] Phone: tel: fax: Referral ID Status Reason Start Date Expiration Date Visits Re quested Visits Authorized [id number] Closed 1 1 Encounter Details Date Type Department Care Team (Late st Contact Info) Description 08/28/2023 Orders Only [facility] ADULT DENTAL [address] [place] [address] Alisha Rodas DDS [address] [place] [address] Social History Tobacco Use Types Packs/Day Years [...]
--- OUTSIDE RECORDS SUMMARY | 2024-08-28 11:09 | XMS_ITS | Encounter Summary ---
Author Organization [employer] Address [address] [place] [address] Care Team Providers Care Powerhouse Mechanic Name Role Phone Unavailable Primary Care Provider Unavailabl e Encounter Details Date Type Department Care Team (Latest Contact Info) Description 04/29/2019 Abstract [facility] CONVERSIONS Dental, Provider, DDS Social History [...]
== END 2024-08-28 11:18 | disposition home or self-care (01) ==
LOC: HO.ENCR 09:55
PROVIDERS: PCP Internal Medicine; Visit Provider Nurse Practitioner Adult Health
DX: E11.9 Type 2 diabetes mellitus without complications (principal)
CPT/HCPCS: 99214; G2211

== ENCOUNTER → 2024-08-28 09:54 | Outpatient (BNVA) | payer MEDICARE, MEDICAID, SELFPAY ==
[2024-07-15 09:17] VITALS: BP 128/60; BMI 27.1
== END ==
PROVIDERS: PCP Internal Medicine; Visit Provider Nurse Practitioner Adult Health
DX: E11.9 Type 2 diabetes mellitus without complications (principal)
CPT/HCPCS: 82947; 99212

== ENCOUNTER 2024-09-11 12:34 | Outpatient (AMB) | payer MEDICARE, MEDICAID, SELFPAY ==
[2024-07-15 09:17] VITALS: BP 128/60; BMI 27.1
--- NOTE | 2024-09-11 12:22 | MHC.OFFVIS ---
Vital Signs 09/11/24 12:37 Height 5 ft 2 in Weight 143 lb 8.335 oz BMI 26.2 BP 110/54 L Blood Pressure Location Rt brachial Position Sitting Pulse 71 Pulse Source Pulse Oximeter Pulse Oximetry (%) 99 Oxygen Delivery Method Room Air Intake Visit Reasons: T2DM Intake Note: Patient presents today to establish treatment for Type 2 Diabetes Mellitus: Last Diabetic eye exam was on: has appt next week. Last Podiatry exam was on: Patient does not see a Air Traffic Coordinator Most recent HbA1c: 7.8%, 07/14/2024 Random Glucose-220 mg/dL, Today Registered Medical Assistant Required: No Accompanied by: Self / Same As Patient Allergies duloxetine [From CYMBALTA] Allergy (Intermediate, Verified 09/11/24 12:41) SHAKINESS Medication List - Last Reconciled 09/11/24 by Tari Sanders NP acetaminophen (Tylenol Extra Strength) 500 mg PO Q6H PRN albuterol sulfate 90 mcg/actuation 90 mcg inhalation BID PRN alcohol swabs (Alcohol Prep Pads) 1 pad topical TID ascorbic acid (vitamin C) (Vitamin C) 1,000 mg (2 x 500 mg) PO DAILY aspirin 81 mg PO DAILY azathioprine 75 mg (1.5 x 50 mg) PO DAILY blood sugar diagnostic (FreeStyle Lite Strips) As directed cholecalciferol (vitamin D3) 25 mcg PO DAILY empagliflozin (Jardiance) 25 mg PO DAILY fluticasone propionate 50 mcg/actuation 50 mcg intranasal DAILY PRN insulin lispro (Humalog KwikPen (U-100) Insulin) 2 units (0.02 mL) subcut QAM 30 days lancets (TRUEplus Lancets) As directed lansoprazole 30 mg PO BID 30 days Lantus Solostar U-100 Insulin (insulin glargine) 8 units (0.08 mL) subcut QPM 30 days NS lisinopril 2.5 mg PO DAILY lorazepam 0.5 mg PO QID PRN metformin ER 1,000 mg PO BID metoprolol succinate ER 25 mg PO DAILY nortriptyline 10 mg PO BEDTIME nut.tx.gluc intol,lf,soy-fiber 0.08-1.5 gram-kcal/mL (Glucerna 1.5 Shaheen) 1 ea PO BID ondansetron 4 mg PO Q6-8H PRN oxycodone 5 mg PO Q4-6H PRN pen needle, diabetic twice daily plecanatide (Trulance) 3 mg PO DAILY prednisone 10 mg PO BID rosuvastatin 5 mg PO DAILY simethicone (Gas Relief (simethicone)) 125 mg PO BID-QID PRN sucralfate 10 mL PO BID thiamine HCl (vitamin B1) 100 mg PO DAILY walker As directed HPI Comments Details: [age] YO female who is seen in f/u for T2DM. Last A1C 7.8% 07/24/24 up from 7.1%. She was started on Prednisone earlier this week and has a several week course to complete. She is having left arm and hand pain is scheduled to see a nuclear station operator. Initially diagnosed with T2DM in 2008. Saw endocrinology in the past and was discharged due to normal A1C Was initially started on treatment with: metformin januvia was ineffective Current regimen: Lantus 10 units in the evening glipizide 10mg (she was to stop but did not) Jardiance 25 mg metformin ER 1000mg Dexcom average glucose: 163 14 day continuous glucose monitor report reviewed Glucose Managment indicator 7.2 % Days with CGM data 100 % TIme in ranges: 11 % very high (above 250) 21 % high ?(181-250) 66 % in range ?(70-180] 1 % low (69-55) 1 % ?very low (below 54) 37.8 coefficent of variance Interpretation: She is running slightly low in the morning extreme highs 250-300 with gradually increasing numbers from 10:00 am to 3pm after taking prednisone Treats lows with oj, soda doesn't recheck afterward Most recent A1C 7.8% on 07/14/24 up from previous 7.1% 03/19/25. [facility] screen Family history of T2DM: mother, father, aunts Denies retinopathy: eyes checked yearly, last eye exam one year ago scheduled for next week Has neuropathy, some burning pain does not see podiatry No nephropathy, on low-dose LESLEE inhibitor 07/14/2024 eGFR>60 10/2023 microalbumin less than 5 Has HLD, on statin. Last LDL 67 as measured on 07/14/2024. Has CAD stent 2022 Sees cardiology every 6 months Followed by Rheumatology for lupus Diet: breakfast skips first time she eats is at 12 pm 2 eggs, bower, hash browns or [place] toast with bananas doesn't eat anything or supper or may have small sandwich Weight: stable lost several pounds over the last year previously had been 150 No recent diabetes education. [facility] Medical History Trigger finger, left ring finger Cirrhosis Antiphospholipid antibody syndrome Leg pain, right Abdominal bloating Lupus Arthritis POOL (dyspnea on exertion) Gallstones Cirrhosis Nonalcoholic steatohepatitis (SHARMA) Autoimmune hepatitis High blood pressure Fibromyalgia Diabetes Surgical History History of esophagogastroduodenoscopy (EGD) History of heart artery stent Hx of cholecystectomy Hx of endoscopy History of colonoscopy History of shoulder surgery History of cataract surgery (2010) History of repair of right rotator cuff (08/2011) History of cervical discectomy (07/2009) History of carpal tunnel release Family History Father History of diabetes mellitus, type II History of hypertension History of heart bypass surgery Mother History of diabetes mellitus, type II Brother History of gout Paternal Uncle Cancer Paternal Aunt Cancer Social History Household Members: None Housing: Apartment Are you a primary career services assistant to a significant other at home: No 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 have visiting nurse or other home services: No Alcohol intake: never Patient Tobacco Use Status: Never used Tobacco service: No Current occupational status: disabled Physical Exam Vital Signs: Last Vital Signs Pulse 71 09/11/24 12:37 BP 110/54 L 09/11/24 12:37 Pulse Ox 99 09/11/24 12:37 Oxygen Delivery Method Room Air 09/11/24 12:37 BMI result Body Mass Index 26.2 Const Other: Absence of Cushingoid features. Absence of acromegalic features. Neck exam reveals nl size thyroid about 15 gms. No thyroid nodules palpable. No carotid bruits present. Lungs CTA. Heart S1 S2, Reg R/R. No M/R G. Skin exam reveals absence of vitiligo or acanthosis nigricans. No edema, stiffness left hand Office Procedures Glucose Monitoring Details Details: see hpi [id number] - Glucose monitoring, continuous-physician I&R Procedure code (CPT) selection complete Results Reviewed Results Reviewed: Laboratory Last Values Glucose (Clinic) 220 mg/dL (60-115) H 09/11/24 12:45 Assessment & Plan Assessment & Plan (1) Uncontrolled type 2 diabetes mellitus with hyperglycemia: Code(s): E11.65 - Type 2 diabetes mellitus with hyperglycemia Plan 64-year-old type 2 diabetic with neuropathy and coronary artery disease presents today for review of glucose sensor and evaluation of treatment. She was recently started on prednisone for left arm and hand pain. Her glucose sensor showed overnight lows with substantial highs after taking prednisone in the morning. She was advised again to stop glipizide Lantus 8 units at bedtime Humalog 2 units with breakfast meal to prevent post steroid high Continue Jardiance Continue metformin A freestyle Leobardo 3+ sensor was ordered as she is now on twice daily insulin in his having both low and high sugar readings and would benefit from continuous glucose sensing. This should also help to achieve a better A1c The patient had an opportunity to ask questions regarding treatment plan. The patient expressed understanding and agreement with the above treatment plan. The patient is aware they should contact our office by phone for worsening glucose readings or for any low blood sugars which may warrant a change in diabetes medication. Compliance is encouraged with medications and any followup testing/consults which may have been ordered. Orders: Orders AMB Glucose Monitoring Today E11.65 - Type 2 diabetes mellitus with hyperglycemia Referrals Diabetes Education Referral E11.9 - Type 2 diabetes mellitus without complications Medications: New FreeStyle Leobardo 3 [place] (blood-glucose,quality checker,cont) As directed for use with freestyle 3 sensors 1 ea 0RF NS E11.9 - Type 2 diabetes mellitus without complications insulin lispro (Humalog KwikPen (U-100) Insulin) with breakfast 2 units (0.02 mL) subcut QAM 30 days 3 mL 3RF FreeStyle Leobardo 3 Plus Sensor (blood-glucose sensor) every 15 days 6 ea 3RF NS E11.9 - Type 2 diabetes mellitus without complications Changed From Lantus Solostar U-100 Insulin (insulin glargine) 10 units (0.1 mL) subcut QPM 30 days 3 mL 3RF NS To Lantus Solostar U-100 Insulin (insulin glargine) 8 units (0.08 mL) subcut QPM 30 days 3 mL 3RF NS From pen needle, diabetic once daily 100 ea 3RF To pen needle, diabetic twice daily 100 ea 3RF Coding Level of Care Code Est Pt Level 4 (11800) Complex EM visit Add On G2211 Diagnoses Uncontrolled type 2 diabetes mellitus with hyperglycemia E11.65 CPT Codes Details - CPT: 40246 - Glucose monitoring, continuous-physician I&R ([id number]) Time Spent (min) 30 Comment Time spent reviewing labs/provider notes, face to face, chart doc
[2024-09-11 12:37] VITALS: BP 110/54; PULSE 71; O2SAT 99; BMI 26.2
[2024-09-11 12:50] LABS: Glucose, Whole Blood 220 mg/dL (60-115)
--- OUTSIDE RECORDS SUMMARY | 2024-09-11 13:14 | XMS_ITS | Clinical Summary ---
Author Organization [employer] Address [address]t [place] [address] Care Team Providers Care Director Of Acquisition Marketing Name Role Phone Unavailable Primary Care Provider [...] (SHARMA) 08/13/2023 Atherosclerotic heart diseas e of [place] coronary artery with other forms of angina [...] Most Recently Relevant to Health Maintenance Insurance [facility] STANDARD MEDICARE DENTAL-[facility] MEDICAID STAND ADULT
--- OUTSIDE RECORDS SUMMARY | 2024-09-11 13:14 | XMS_ITS | Encounter Summary ---
Author Organization [employer] Address [address] [place] [address] Care Team Providers Care Brick Burner Name Role Phone Unavailable Primary Care Provider Unavailabl e Reason for Visit * Reason Onset Date Comments Appointment 09/11/2022 Encounter Details Date Type Department Care Team (Late st Contact Info) Description 09/11/2022 Telephone [facility] ADULT DENTAL [address] [place], [place] [phone] Rich Mancera DDS [address] [place], [place] [phone] Appointment Social History Tobacco Use Types Packs/Day [...]
--- OUTSIDE RECORDS SUMMARY | 2024-09-11 13:14 | XMS_ITS | Encounter Summary ---
Author Organization [employer] Address [address] [place] [address] Care Team Providers Care Roofing Machine Operator Name Role Phone Unavailable Primary Care Provider Unavailabl e Encounter Details Date Type Department Care Team (Latest Contact Info) Description 04/29/2019 Abstract [facility] CONVERSIONS Dental, [...]
--- OUTSIDE RECORDS SUMMARY | 2024-09-11 13:14 | XMS_ITS | Encounter Summary ---
Author Organization [employer] Address [address] [place] [address] Care Team Providers Care Senior Financial Reporting Analyst Name Role Phone Unavailable Primary Care Provider Unavailabl e Encounter Details Date Type Department Care Team (Latest Contact Info) Description 02/15/[address] [facility] CONVERSIONS Dental, Provider, DDS Social History [...]
--- OUTSIDE RECORDS SUMMARY | 2024-09-11 13:14 | XMS_ITS | Encounter Summary ---
Author Organization [employer] Address [address]t [place] [address] Care Team Providers Care Heating And Cooling Technician Name Role Phone Unavailable Primary Care Provider Unavailabl e Reason for Visit * Reason Onset Date Comments medication 08/27/2023 Encounter Details Date Type Department Care Team (Late st Contact Info) Description 08/27/2023 Telephone [facility] ADULT DENTAL [address] [place] [address] Alisha Rodas, DDS [address] [place], [place] [phone] medication Social History Tobacco Use Types Packs/Day [...]
--- OUTSIDE RECORDS SUMMARY | 2024-09-11 13:14 | XMS_ITS | Encounter Summary ---
Author Organization [employer] Address [address]t [place] [address] Care Team Providers Care Wheel Borer Name Role Phone Unavailable Primary Care Provider Unavailabl e Reason for Referral * Medications - Closed Specialty Diagnoses / Procedures Referred By Ghada t Referred To Contact Alisha Rodas DDS [address] [place] [address] Phone: tel: fax: Referral ID Status Reason Start Date Expiration Date Visits Re quested Visits Authorized [id number] Closed 1 1 Encounter Details Date Type Department Care Team (Late st Contact Info) Description 08/28/2023 Orders Only [facility] ADULT DENTAL [address] [place] [address] Alisha Rodas DDS [address] [place] [address] Social History Tobacco Use Types Packs/Day Years [...]
--- OUTSIDE RECORDS SUMMARY | 2024-09-11 13:14 | XMS_ITS | Encounter Summary ---
Author Organization [employer] Address [address] [place] [address] Care Team Providers Care Sat Tutor Name Role Phone Unavailable Primary Care Provider Unavailabl e Encounter Details Date Type Department Care Team (Latest Contact Info) Description 09/06/2021 Abstract [facility] CONVERSIONS Dental, Provider, DDS Social History [...]
--- OUTSIDE RECORDS SUMMARY | 2024-09-11 13:14 | XMS_ITS | Encounter Summary ---
Author Organization [employer] Address [address] 7[address] [place] [address] Care Team Providers Care Drywall Professional Name Role Phone Unavailable Primary Care Provider Unavailabl e Reason for Visit * Reason Onset Date Comments Appointment 11/19/2022 Encounter Details Date Type Department Care Team (Late st Contact Info) Description 11/19/2022 Telephone [facility] ADULT DENTAL [address] [place] [address] Alisha Rodas DDS [address] [place], [place] [phone] Appointment Social History Tobacco Use Types Packs/Day [...]
== END 2024-09-11 13:25 | disposition home or self-care (01) ==
LOC: HO.ENCR 12:35
PROVIDERS: PCP Internal Medicine; Visit Provider Nurse Practitioner Adult Health
DX: E11.65 Type 2 diabetes mellitus with hyperglycemia (principal)
CPT/HCPCS: 95251; 99214; G2211

== ENCOUNTER → 2024-09-11 12:34 | Outpatient (BNVA) | payer MEDICARE, MEDICAID, SELFPAY ==
[2024-07-15 09:17] VITALS: BP 128/60; BMI 27.1
== END ==
PROVIDERS: PCP Internal Medicine; Visit Provider Nurse Practitioner Adult Health
DX: E11.65 Type 2 diabetes mellitus with hyperglycemia (principal); Z79.4 Long term (current) use of insulin; Z79.84 Long term (current) use of oral hypoglycemic drugs
CPT/HCPCS: 82947; 99212

== ENCOUNTER 2024-09-17 09:59 | Outpatient (REF) | payer MEDICARE, MEDICAID, SELFPAY ==
[2024-07-15 09:17] VITALS: BP 128/60; BMI 27.1
[2024-09-17 10:18] LABS: MANUAL DIFF FLAG NO
[2024-09-17 10:42] LABS: Basophils Percent Auto 0.8 % (0-2); Eosinophils Absolute Auto 0.1 X10*3/uL (0.0-0.4); Eosinophils Percent Auto 2.1 % (0-4); Hematocrit 39.9 % (37.0-47.0); Hemoglobin 12.5 g/dl (12.0-16.0); Imm Gran Abs Auto 0.02 X10*3/uL (0.00-0.03); Imm Gran Pct Auto 0.4 % (0.0-0.4); Lymphocytes Absolute Auto 1.1 X10*3/uL (1.2-4.9); Lymphocytes Percent Auto 23.6 % (20-40); Mean Corpuscular HGB Conc 31.3 g/dl (31.0-35.0); Mean Corpuscular Hemoglobin 27.7 pg (27.0-33.0); Mean Corpuscular Volume 88.3 fL (80.0-98.0); Mean Platelet Volume 10.1 fL (9.4-12.3); Monocytes Absolute Auto 0.4 X10*3/uL (0.1-1.2); Monocytes Percent Auto 7.7 % (2-11); Neutrophils Absolute Auto 3.1 x10*3/uL (2.0-8.3); Neutrophils Percent Auto 65.4 % (45-73); Platelet Count 195 X10*3/uL (160-400); Red Blood Count 4.52 X10*6/uL (4.20-5.50); Red Cell Distribution Width 15.6 % (11.0-16.0); White Blood Count 4.8 X10*3/uL (4.8-10.8)
[2024-09-17 11:18] LABS: Alanine Aminotransferase 31 U/L (0-31); Alkaline Phosphatase 163 U/L (39-117); Anion Gap 11 (12-20); Aspartate Amino Transferase 46 U/L (5-31); Bilirubin Total 0.4 mg/dL (0.0-1.0); Blood Urea Nitrogen 10 mg/dL (9-16); C Reactive Protein 0.74 mg/dL (< or = 0.50); Calcium 9.8 mg/dL (8.4-10.2); Carbon Dioxide 28 mmol/L (22-29); Chloride 100 mmol/L (96-108); Estimated Glomerular Filt Rate > 60; Glucose Random 157 mg/dL (60-115); Potassium 4.2 mmol/L (3.3-5.1); Sodium 135 mmol/L (135-145); Total Protein 9.3 g/dL (6.5-8.0); Uric Acid 4.2 mg/dL (2.4-5.7)
--- OUTSIDE RECORDS SUMMARY | 2024-09-17 11:22 | XMS_ITS | Encounter Summary ---
Author Organization [employer] Address [address] [place] [address] Care Team Providers Care Commercial Shrimping Captain Name Role Phone Unavailable Primary Care Provider Unavailabl e Reason for Visit * Reason Onset Date Comments Appointment 09/11/2022 Encounter Details Date Type Department Care Team (Late st Contact Info) Description 09/11/2022 Telephone [facility] ADULT DENTAL [address] [place], [place] [phone] Rich Mancera DDS [address] [place], [place] [phone] Appointment Social History Tobacco Use Types Packs/Day [...]
--- OUTSIDE RECORDS SUMMARY | 2024-09-17 11:23 | XMS_ITS | Encounter Summary ---
Author Organization [employer] Address [address] 7[address] [place] [address] Care Team Providers Care Skip Locator Name Role Phone Unavailable Primary Care Provider Unavailabl e Encounter Details Date Type Department Care Team (Latest Contact Info) Description 09/06/2021 Abstract [facility] CONVERSIONS Dental, Provider, DDS Social History Tobacco [...]
--- OUTSIDE RECORDS SUMMARY | 2024-09-17 11:23 | XMS_ITS | Encounter Summary ---
Author Organization [employer] Address [address] [place] [address] Care Team Providers Care Arterial Embalmer Name Role Phone Unavailable Primary Care Provider Unavailabl e Encounter Details Date Type Department Care Team (Latest Contact Info) Description 04/29/2019 Abstract [facility] CONVERSIONS Dental, Provider, DDS Social History [...]
--- OUTSIDE RECORDS SUMMARY | 2024-09-17 11:23 | XMS_ITS | Encounter Summary ---
Author Organization [employer] Address [address] [place] [address] 7t [place] [address] Care Team Providers Care Office Services Specialist Name Role Phone Unavailable Primary Care Provider Unavailabl e Reason for Referral * Medications - Closed Specialty Diagnoses / Procedures Referred By Ghada t Referred To Contact Alisha Rodas DDS [address] [place] [address] Phone: tel: fax: Referral ID Status Reason Start Date Expiration Date Visits Re quested Visits Authorized [id number] Closed 1 1 Encounter Details Date Type Department Care Team (Late st Contact Info) Description 08/28/2023 Orders Only [facility] ADULT DENTAL [address] [place] [address] Alisha Rodas DDS [address] [place] [address] Social History Tobacco Use Types Packs/Day Years [...]
--- OUTSIDE RECORDS SUMMARY | 2024-09-17 11:23 | XMS_ITS | Encounter Summary ---
Author Organization [employer] Address [address] [place] [address] Care Team Providers Care Head Machine Feeder Name Role Phone Unavailable Primary Care Provider Unavailabl e Reason for Visit * Reason Onset Date Comments Appointment 11/19/2022 Encounter Details Date Type Department Care Team (Late st Contact Info) Description 11/19/2022 Telephone [facility] ADULT DENTAL [address] [place] [address] Alisha Rodas DDS [address] [place], [place] [phone] Appointment Social History Tobacco Use Types Packs/Day [...]
--- OUTSIDE RECORDS SUMMARY | 2024-09-17 11:23 | XMS_ITS | Encounter Summary ---
Author Organization [employer] Address [address] [facility] 7t [place] [address] Care Team Providers Care Pulverizer Name Role Phone Unavailable Primary Care Provider Unavailabl e Reason for Visit * Reason Onset Date Comments medication 08/27/2023 Encounter Details Date Type Department Care Team (Late st Contact Info) Description 08/27/2023 Telephone [facility] ADULT DENTAL [address] [place] [address] Alisha Rodas, DDS [address] [place], [place] [phone] medication Social History Tobacco Use Types Packs/Day [...]
--- OUTSIDE RECORDS SUMMARY | 2024-09-17 11:23 | XMS_ITS | Clinical Summary ---
Author Organization [employer] Address [address] [facility] 7t [place] [address] Care Team Providers Care Fixed Wing Aircraft Flight Mechanic Name Role Phone Unavailable Primary Care [...] (SHARMA) 08/13/2023 Atherosclerotic heart diseas e of [place] coronary artery with other forms of angina [...] Most Recently Relevant to Health Maintenance Insurance [facility] STANDARD MEDICARE DENTAL-[facility] MEDICAID STAND ADULT
--- OUTSIDE RECORDS SUMMARY | 2024-09-17 11:23 | XMS_ITS | Encounter Summary ---
Author Organization [employer] Address [address] 7[address] [place] [address] Care Team Providers Care Field Collector Name Role Phone Unavailable Primary Care Provider Unavailabl e Encounter Details Date Type Department Care Team (Latest Contact Info) Description 02/15/2021 Abstract [facility] CONVERSIONS Dental, Provider, DDS Social History [...]
[2024-09-17 11:36] LABS: Erythrocyte Sedimentation Rate 62 MM/HR (0-20)
[2024-09-17 11:39] LABS: HBS Num1 1.85 mIU/mL (0-7.99); HBc Num1 0.09 S/CO (0.00-0.79); HBsAGNum1 0.31 S/CO (0.00-0.99); Hepatitis A Antibody IgM 0.23 Index (0-0.79); Hepatitis B Core Antibody Nonreactive (Nonreactive); Hepatitis B Surface Antigen Negative (Negative); ~Hepatitis A Antibody IgM Nonreactive (Nonreactive); ~Hepatitis B Surface Antibody NONREACTIVE (Nonreactive); ~Hepatitis C Antibody Nonreactive (Nonreactive)
[2024-09-17 11:58] LABS: Appearance Urine Clear; Color Urine Yellow; Glucose Urine UA >=1000 mg/dL (Negative); Leukocyte Esterase Urine Negative (Negative); Nitrite Urine Negative (Negative); Specific Gravity - Urine 1.025 (1.005-1.025); UMIC TRIGGER UA YES; Urine Blood Negative (Negative); Urine Ketones Negative (Negative); Urine Protein Negative (Neg-Trace)
[2024-09-17 12:02] LABS: Bacteria Urine None Seen (None Seen); Hyaline Casts Urine 0-2 /LPF (0-2); RBC Urine 0-2 /HPF (0-2); WBC Urine 0-5 /HPF (0-5)
[2024-09-17 12:37] LABS: Creatinine Urine 51.74 mg/dL; Total Protein Urine Random < 7 mg/dL (<12)
[2024-09-18 14:59] LABS: Anti DNA DS Antibody 61 IU/mL
[2024-09-19 17:08] LABS: Complement C3 116 mg/dL (83-193)
[2024-09-20 07:29] LABS: TS Negative Control Passed; TS Panel A 0; TS Panel B 0; TS Positive Control Passed; TSpotTB Negative (Negative)
== END 2024-09-17 10:00 | disposition home or self-care (01) ==
LOC: HO.LAB 09:59
PROVIDERS: PCP Internal Medicine; Visit Provider Student in an Organized Health Care Education/Training Program
DX: M32.9 Systemic lupus erythematosus, unspecified (principal)
CPT/HCPCS: 36415; 80053; 81001; 82570; 84156; 84550; 85025; 85652; 86140; 86160; 86225; 86481; 86704; 86706; 86709; 86803; 87340

== ENCOUNTER 2024-09-21 15:25 | Outpatient (AMB) | payer MEDICARE, MEDICAID, SELFPAY ==
[2024-07-15 09:17] VITALS: BP 128/60; BMI 27.1
[2024-09-21 15:36] VITALS: BP 124/70; PULSE 71; O2SAT 99; BMI 25.6
--- NOTE | 2024-09-21 15:36 | MHC.OFFVIS ---
Vital Signs 09/21/24 15:36 Height 5 ft 2 in Weight 140 lb 3.424 oz BMI 25.6 BP 124/70 Blood Pressure Location Lt brachial Position Sitting Pulse 71 Pulse Source Pulse Oximeter Pulse Oximetry (%) 99 Oxygen Delivery Method Room Air Intake Visit Reasons: discuss labs/ MD sainz sooner appt Intake Note: Patient presents for discussion of labs which were done on 09/17/24. Allergies duloxetine [From CYMBALTA] Allergy (Intermediate, Verified 09/21/24 15:40) SHAKINESS Medication List - Last Reconciled 09/21/24 by Marcelina Bourne MD acetaminophen (Tylenol Extra Strength) 500 mg PO Q6H PRN albuterol sulfate 90 mcg/actuation 90 mcg inhalation BID PRN alcohol swabs (Alcohol Prep Pads) 1 pad topical TID ascorbic acid (vitamin C) (Vitamin C) 1,000 mg (2 x 500 mg) PO DAILY aspirin 81 mg PO DAILY azathioprine 75 mg (1.5 x 50 mg) PO DAILY blood sugar diagnostic (FreeStyle Lite Strips) As directed cholecalciferol (vitamin D3) 25 mcg PO DAILY empagliflozin (Jardiance) 25 mg PO DAILY fluticasone propionate 50 mcg/actuation 50 mcg intranasal DAILY PRN FreeStyle Leobardo 3 Plus Sensor (blood-glucose sensor) every 15 days NS FreeStyle Leobardo 3 [place] (blood-glucose,home health billing specialist,cont) As directed for use with freestyle 3 sensors NS insulin aspart U-100 (Novolog FlexPen U-100 Insulin aspart) 2 units (0.02 mL) subcut DAILY 30 days lancets (TRUEplus Lancets) As directed lansoprazole 30 mg PO BID 30 days Lantus Solostar U-100 Insulin (insulin glargine) 8 units (0.08 mL) subcut QPM 30 days NS lisinopril 2.5 mg PO DAILY lorazepam 0.5 mg PO QID PRN metformin ER 1,000 mg PO BID metoprolol succinate ER 25 mg PO DAILY nortriptyline 10 mg PO BEDTIME nut.tx.gluc intol,lf,soy-fiber 0.08-1.5 gram-kcal/mL (Glucerna 1.5 Shaheen) 1 ea PO BID ondansetron 4 mg PO Q6-8H PRN oxycodone 5 mg PO Q4-6H PRN pen needle, diabetic twice daily plecanatide (Trulance) 3 mg PO DAILY prednisone 10 mg PO BID rosuvastatin 5 mg PO DAILY simethicone (Gas Relief (simethicone)) 125 mg PO BID-QID PRN sucralfate 10 mL PO BID thiamine HCl (vitamin B1) 100 mg PO DAILY walker As directed HPI Comments Details: Patient is a 64-year-old female with diabetes, hypertension, hyperlipidemia complicated by coronary artery disease status post cardiac catheterization with stenting, GERD, autoimmune hepatitis, lupus and polyarticular osteoarthritis here today for follow up Interval History: Patient last seen 06/02/[address] Bradley. At that time she was following up for her lupus and autoimmune hepatitis. She was on Imuran 75 mg daily as prescribed by Gastroenterology. She was also prescribed hydroxychloroquine which she did not start. She continued to complain of diffuse pain without any evidence of active SLE. Her pain was attributed to fibromyalgia and conservative measures were recommended Today she is here for follow up/urgent visit for bilateral hand swelling Patient states that she has been having a 1 week history of bilateral hand pain and swelling. She was off prednisone however given the swelling and the pain she took 10 mg of prednisone for a few days which improved her symptoms Denies oral/nasal ulcers and worsening rash Rheumatologic History: dx ( autoimmune hepatitis, arthralgias ++ dsDNA intermittently low C3 and C4 +++ACL IgM ++ASMA) Current Rheumatology Medication(s): Azathioprine 75 mg daily Hydroxychloroquine Prednisolone 10 mg twice a day [facility] Medical History Trigger finger, left ring finger Cirrhosis Antiphospholipid antibody syndrome Leg pain, right Abdominal bloating Lupus Arthritis POOL (dyspnea on exertion) Gallstones Cirrhosis Nonalcoholic steatohepatitis (SHARMA) Autoimmune hepatitis High blood pressure Fibromyalgia Diabetes Surgical History History of esophagogastroduodenoscopy (EGD) History of heart artery stent Hx of cholecystectomy Hx of endoscopy History of colonoscopy History of shoulder surgery History of cataract surgery (2010) History of repair of right rotator cuff (08/2011) History of cervical discectomy (07/2009) History of carpal tunnel release Family History Father History of diabetes mellitus, type II History of hypertension History of heart bypass surgery Mother History of diabetes mellitus, type II Brother History of gout Paternal Uncle Cancer Paternal Aunt Cancer Social History Household Members: None Housing: Apartment Are you a primary nursing care partner to a significant other at home: No 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 have visiting nurse or other home services: No Alcohol intake: never Patient Tobacco Use Status: Never used Tobacco service: No Current occupational status: disabled Review of Systems Const Details: Review of Systems Constitutional: Denies fever, chills, weight loss ENT: Denies vision changes, eye pain or eye redness, dental caries, dry mouth GI: Denies nausea, vomiting, diarrhea, abdominal pain, change in BM Pulm: Denies SOB, POOL, hemoptysis, wheezing Cards: Denies chest pain, palpitations Skin: Denies Raynaud's, rash, nail changes, photosensitivity, HOSIERY PAIRER: Denies headaches, weakness, paresthesias, recurrent falls MSK: as per HPI All other systems reviewed and are unremarkable except noted above Physical Exam Vital Signs: Last Vital Signs Pulse 71 09/21/24 15:36 BP 124/70 09/21/24 15:36 Pulse Ox 99 09/21/24 15:36 Oxygen Delivery Method Room Air 09/21/24 15:36 BMI result Body Mass Index 25.6 Vital signs reviewed Physical Examination CONSTITUITIONAL Patient alert and cooperative. Well appearing and in no apparent painful distress HEENT Conjunctiva and sclera clear. ?Pupils equal round and reactive to light. ?No lymphadenopathy. ? CHEST/RESPIRATORY SYSTEM Normal respiratory effort and able to speak in complete sentences. ?Clear to auscultation bilaterally. ?No crackles, rales, rhonchi, wheezes heard. CARDIAC SYSTEM Regular rate and rhythm. ?S1 and S2 heard no murmurs. ?Radial pulses intact bilaterally MSK Hands: ?Able to make a fist. No synovitis noted to the MCPs, PIPs or DIPs. ?No tenderness to palpation of these joints. No deformities noted. ? Wrists: ?Full range of motion at the wrists without pain. ?No tenderness to palpation or synovitis noted to the wrists. Elbows: Full range of motion without pain. No tenderness, weakness, swelling, increased warmth or erythema. Shoulders: Full range of active range of motion without pain. No tenderness, weakness, swelling, increased warmth or erythema. Knees: ?Full range of motion. ?No tenderness, swelling, increased warmth or erythema.?No effusion or crepitations Ankles: Full range of motion. ?No tenderness, swelling, increased warmth or erythema.? Feet: ?Negative squeeze test. ?No tenderness to palpation or swelling of the MTPs. Tender points:?No tenderness to palpation of the bilateral trapezius, supraspinatus, greater trochanters, anterior costochondral junctions, bilateral gluteal areas, bilateral suboccipital muscle insertions SKIN Skin intact without rashes. Results Reviewed Results Reviewed: Laboratory Tests 05/28/24 09/17/24 10:52 10:17 WBC 4.8 RBC 4.52 Hgb 12.5 Hct 39.9 Plt Count 195 ESR 62 H Sodium 135 Potassium 4.2 Chloride 100 Carbon Dioxide 28 BUN 10 Creatinine 0.70 Uric Acid 4.2 Calcium 9.8 D Total Bilirubin 0.4 AST 46 H ALT 31 Alkaline Phosphatase 163 H C-Reactive Protein 0.74 H Total Protein 9.3 H Albumin 4.0 Double Strand DNA Ab 75 H 61 H Complement C3 168 116 Complement C4 15 9 L Assessment & Plan Assessment & Plan (1) Lupus: Code(s): M32.9 - Systemic lupus erythematosus, unspecified Category: Medical Plan: #Lupus Patient is a 64-year-old female with autoimmune hepatitis complicated by cirrhosis and presumed lupus here today for follow up. Patient complaining of hand swelling and pain that resolved with short course of Prednisolone self administered. It was difficult to say whether or not this patient truly has lupus. She for sure has autoimmune hepatitis which in and of itself can have low complements and positive double-stranded DNA. Regardless she has seen a to have some inflammatory type symptoms that response to prednisone. And I think it warrants a trial of Plaquenil. Whether or not she truly has lupus right now is semantics as you can have a seronegative inflammatory arthritis associated with autoimmune hepatitis as well. Plan - Plaquenil 200mg bid - Continue azathioprine from GI - Continue prednisone as per GI - RTC 4 months to review - Labs before visit: CBC, CMP, ESR, CRP, C3, C4, dsDNA, UA, UPC Beisel C, Max Dunham, Donis A, Justin AW. Association of autoimmune hepatitis and systemic lupus erythematodes: a case series and review of the literature. World J Gastroenterol. 2014 Feb 14;20(35):59607-9. doi: 10.3748/wjg.v20.i35.34533. PMID: 40797660; PMCID: [id number]. (2) Long-term use of hydroxychloroquine: Code(s): Z79.899 - Other fpc (current) drug therapy Category: Medical Plan: #Long-term Use of Hydroxychloroquine Discussed with patient the risks and benefits of hydroxychloroquine in managing the rheumatic condition Benefits include: - Reduced pain, reduce mortality, maintenance of remission and reduction of flares Risks include: - GI upset, skin hyperpigmentation, retinal toxicity (especially after more than 5 years of use), myopathy Advised yearly ophthalmology visits Plan I spent 32 minutes reviewing the record and labs, taking a history, examining the patient, discussing the treatment plan, ordering diagnostic work up and documenting in the medical record Medications: New hydroxychloroquine 200 mg PO BID 180 tabs 1RF M32.9 - Systemic lupus erythematosus, unspecified Coding Level of Care Code Est Pt Level 4 (30338) Complex EM visit Add On G2211 Diagnoses Lupus M32.9 Long-term use of hydroxychloroquine Z79.899
--- OUTSIDE RECORDS SUMMARY | 2024-09-21 18:12 | XMS_ITS | Encounter Summary ---
Author Organization [employer] Address [address] [place] [address] Care Team Providers Care Manufacturing Engineering Professor Name Role Phone Unavailable Primary Care Provider Unavailabl e Encounter Details Date Type Department Care Team (Latest Contact Info) Description 04/29/2019 Abstract [facility] CONVERSIONS Dental, Provider, DDS Social History Tobacco [...]
--- OUTSIDE RECORDS SUMMARY | 2024-09-21 18:12 | XMS_ITS | Encounter Summary ---
Author Organization [employer] Address [address] [facility] [facility] [address] [facility] [address] [place] [address] Care Team Providers Care Welding Rod Coater Name Role Phone Unavailable Primary Care Provider Unavailabl e Encounter Details Date Type Department Care Team (Latest Contact Info) Description 09/06/2021 Abstract [facility] CONVERSIONS Dental, Provider, DDS Social [...]
--- OUTSIDE RECORDS SUMMARY | 2024-09-21 18:12 | XMS_ITS | Encounter Summary ---
Author Organization [employer] Address [address] [place] [address] Care Team Providers Care Tip Cutter Name Role Phone Unavailable Primary Care Provider Unavailabl e Reason for Visit * Reason Onset Date Comments Appointment 09/11/2022 Encounter Details Date Type Department Care Team (Late st Contact Info) Description 09/11/2022 Telephone [facility] ADULT DENTAL [address] [place], [place] [phone] Rich Mancera DDS [address] [place], [place] [phone] Appointment Social History Tobacco Use Types Packs/Day [...]
--- OUTSIDE RECORDS SUMMARY | 2024-09-21 18:12 | XMS_ITS | Encounter Summary ---
Author Organization [employer] Address [address] [place] [address] Care Team Providers Care Vice President For Instruction Name Role Phone Unavailable Primary Care Provider Unavailabl e Reason for Visit * Reason Onset Date Comments Appointment 11/19/2022 Encounter Details Date Type Department Care Team (Late st Contact Info) Description 11/19/2022 Telephone [facility] ADULT DENTAL [address] [place] [address] Alisha Rodas DDS [address] [place], [place] [phone] Appointment Social History Tobacco Use Types Packs/Day [...]
--- OUTSIDE RECORDS SUMMARY | 2024-09-21 18:12 | XMS_ITS | Encounter Summary ---
Author Organization [employer] Address [address] [place] [address] Care Team Providers Care Journalism Intern Name Role Phone Unavailable Primary Care Provider Unavailabl e Encounter Details Date Type Department Care Team (Latest Contact Info) Description 02/15/2021 Abstract [facility] CONVERSIONS Dental, Provider, DDS Social History [...]
--- OUTSIDE RECORDS SUMMARY | 2024-09-21 18:12 | XMS_ITS | Encounter Summary ---
Author Organization [employer] Address [address] [facility] 7t [place] [address] Care Team Providers Care Sample Book Maker Name Role Phone Unavailable Primary Care Provider Unavailabl e Reason for Visit * Reason Onset Date Comments medication 08/27/2023 Encounter Details Date Type Department Care Team (Late st Contact Info) Description 08/27/2023 Telephone [facility] ADULT DENTAL [address] [place] [address] Alisha Rodas, DDS [address] [place], [place] [phone] medication Social History Tobacco Use Types Packs/Day [...]
--- OUTSIDE RECORDS SUMMARY | 2024-09-21 18:12 | XMS_ITS | Encounter Summary ---
Author Organization [employer] Address [address] [place] [address] 7t [place] [address] Care Team Providers Care Weave Defect Charting Clerk Name Role Phone Unavailable Primary Care Provider Unavailabl e Reason for Referral * Medications - Closed Specialty Diagnoses / Procedures Referred By Ghada t Referred To Contact Alisha Rodas DDS [address] [place] [address] Phone: tel: fax: Referral ID Status Reason Start Date Expiration Date Visits Re quested Visits Authorized [id number] Closed 1 1 Encounter Details Date Type Department Care Team (Late st Contact Info) Description 08/28/2023 Orders Only [facility] ADULT DENTAL [address] [place] [address] Alisha Rodas DDS [address] [place] [address] Social History Tobacco Use Types Packs/Day Years [...]
--- OUTSIDE RECORDS SUMMARY | 2024-09-21 18:12 | XMS_ITS | Clinical Summary ---
Author Organization [employer] Address [address] [facility] 7t [place] [address] Care Team Providers Care Stitcher Around Name Role Phone Unavailable Primary Care Provider [...] (SHARMA) 08/13/2023 Atherosclerotic heart diseas e of [place] coronary artery with other forms of angina [...] Most Recently Relevant to Health Maintenance Insurance [facility] STANDARD MEDICARE DENTAL-[facility] MEDICAID STAND ADULT
== END 2024-09-21 16:33 | disposition home or self-care (01) ==
LOC: HO.RHE 15:25
PROVIDERS: PCP Internal Medicine; Visit Provider Student in an Organized Health Care Education/Training Program
DX: M32.9 Systemic lupus erythematosus, unspecified (principal); Z79.899 Other long term (current) drug therapy
CPT/HCPCS: 99214; G2211

== ENCOUNTER → 2024-09-21 15:25 | Outpatient (BNVA) | payer MEDICARE, MEDICAID, SELFPAY ==
[2024-07-15 09:17] VITALS: BP 128/60; BMI 27.1
== END ==
PROVIDERS: PCP Internal Medicine; Visit Provider Student in an Organized Health Care Education/Training Program
DX: M32.9 Systemic lupus erythematosus, unspecified (principal); Z79.899 Other long term (current) drug therapy
CPT/HCPCS: 99212

== ENCOUNTER 2024-09-30 10:33 | Outpatient (REF) | payer MEDICARE, MEDICAID, SELFPAY ==
[2024-07-15 09:17] VITALS: BP 128/60; BMI 27.1
--- NOTE | ~2024-09-30 | XR_ITS ---
EXAMINATION: XR CERVICAL SPINE CLINICAL INFORMATION: CERVICALGIA, FUSION OF SPINE COMPARISON: September 19, 2016. TECHNIQUE: 3 views of the cervical spine were obtained. FINDINGS: Craniocervical junction is intact. Marginal osteophyte formation and endplate sclerosis and decreased intervertebral disc height C4-5, C5-6 and C6-7 levels. Grade 1 anterolisthesis C5-6. Reverse curvature apex at C6. Vascular calcifications in the left mid neck. XR/XR cervical spine 3V IMPRESSION: Multilevel cervical spondylosis C4-C6 7 resulting in grade 1 anterolisthesis of C5-6. Electronically signed by: Ace Hurtado MD 09/30/2024 11:25 AM EDT
--- NOTE | ~2024-09-30 | XR_ITS ---
EXAMINATION: XR SHOULDER 2 OR MORE VIEWS LEFT HISTORY: PAIN COMPARISON: Comparison is made with the prior examination dated 03/25/2024. FINDINGS: Four views of the left shoulder are submitted. Osseous mineralization is normal. There is no fracture or dislocation. The glenohumeral and acromioclavicular joints are maintained. The soft tissues are unremarkable. XR/XR shoulder LT min 2V IMPRESSION: Unremarkable examination of the left shoulder. Electronically signed by: Joe Navarro MD 09/30/2024 11:28 AM EDT
[2024-09-30 10:46] LABS: MANUAL DIFF FLAG NO
[2024-09-30 11:52] LABS: Eosinophils Absolute Auto 0.1 X10*3/uL (0.0-0.4); Eosinophils Percent Auto 2.2 % (0-4); Hematocrit 39.6 % (37.0-47.0); Hemoglobin 12.4 g/dl (12.0-16.0); Imm Gran Abs Auto 0.01 X10*3/uL (0.00-0.03); Imm Gran Pct Auto 0.2 % (0.0-0.4); Lymphocytes Absolute Auto 0.9 X10*3/uL (1.2-4.9); Lymphocytes Percent Auto 22.6 % (20-40); Mean Corpuscular HGB Conc 31.3 g/dl (31.0-35.0); Mean Corpuscular Hemoglobin 28.2 pg (27.0-33.0); Mean Corpuscular Volume 90.2 fL (80.0-98.0); Mean Platelet Volume 10.3 fL (9.4-12.3); Monocytes Absolute Auto 0.4 X10*3/uL (0.1-1.2); Monocytes Percent Auto 10.6 % (2-11); Neutrophils Absolute Auto 2.6 x10*3/uL (2.0-8.3); Neutrophils Percent Auto 63.4 % (45-73); Platelet Count 190 X10*3/uL (160-400); Red Blood Count 4.39 X10*6/uL (4.20-5.50); Red Cell Distribution Width 15.9 % (11.0-16.0); White Blood Count 4.2 X10*3/uL (4.8-10.8)
[2024-09-30 12:38] LABS: Alanine Aminotransferase 32 U/L (0-31); Albumin Level 3.9 g/dL (3.5-5.0); Alkaline Phosphatase 166 U/L (39-117); Anion Gap 12 (12-20); Aspartate Amino Transferase 62 U/L (5-31); Bilirubin Total 0.6 mg/dL (0.0-1.0); Blood Urea Nitrogen 11 mg/dL (9-16); Calcium 9.9 mg/dL (8.4-10.2); Carbon Dioxide 26 mmol/L (22-29); Chloride 103 mmol/L (96-108); Estimated Glomerular Filt Rate > 60; Glucose Random 166 mg/dL (60-115); Potassium 4.1 mmol/L (3.3-5.1); Sodium 137 mmol/L (135-145); Total Protein 9.4 g/dL (6.5-8.0)
[2024-09-30 13:03] LABS: Thyroid Stimulating Hormone 2.17 uIU/mL (0.32-4.0)
== END 2024-09-30 10:34 | disposition home or self-care (01) ==
LOC: HO.LAB 10:33
PROVIDERS: PCP Internal Medicine; Visit Provider Internal Medicine
DX: M54.2 Cervicalgia (principal); M43.22 Fusion of spine, cervical region; M25.512 Pain in left shoulder; E11.9 Type 2 diabetes mellitus without complications; K74.69 Other cirrhosis of liver
CPT/HCPCS: 36415; 72040; 73030; 80053; 84443; 85025

== ENCOUNTER → 2024-09-30 10:50 | Outpatient (BNV) | payer MEDICARE, MEDICAID, SELFPAY ==
[2024-07-15 09:17] VITALS: BP 128/60; BMI 27.1
== END ==
PROVIDERS: PCP Internal Medicine; Visit Provider Radiology Diagnostic Radiology
DX: M47.812 Spondylosis without myelopathy or radiculopathy, cervical region (principal); M25.512 Pain in left shoulder
CPT/HCPCS: 73030

== ENCOUNTER 2024-10-01 10:26 | Outpatient (AMB) | payer MEDICARE, MEDICAID, SELFPAY ==
[2024-07-15 09:17] VITALS: BP 128/60; BMI 27.1
--- NOTE | 2024-10-01 11:10 | A.OFFVIS_ITS ---
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 Name: Mamadou [id number] Accompanied by: Self / Same As Patient Allergies duloxetine [From CYMBALTA] Allergy (Intermediate, Verified 09/21/24 15:40) JUVE WILL Rust Diabetes Asmnt Most Recent Diabetes Results: 2 Hemoglobin A1c 6.9 % 01/15/20 Microalb/Creat Ratio TNP 11/06/23 Cholesterol 129 mg/dL (<200) 07/14/24 HDL Cholesterol 41 mg/dL (>40) 07/14/24 Triglycerides 108 mg/dL (<150) 07/14/24 Creatinine 0.73 mg/dL (0.5-1.4) 09/30/24 Blood Urea Nitrogen 11 mg/dL (9-16) 09/30/24 Sodium 137 mmol/L (135-145) 09/30/24 Potassium 4.1 mmol/L (3.3-5.1) 09/30/24 Chloride 103 mmol/L (96-108) 09/30/24 Carbon Dioxide 26 mmol/L (22-29) 09/30/24 Calcium 9.9 mg/dL (8.4-10.2) 09/30/24 AST 62 U/L (5-31) H 09/30/24 ALT 32 U/L (0-31) H 09/30/24 Total Protein 9.4 g/dL (6.5-8.0) H 09/30/24 Albumin 3.9 g/dL (3.5-5.0) 09/30/24 [facility] Medical History Trigger finger, left ring finger Cirrhosis Antiphospholipid antibody syndrome Leg pain, right Abdominal bloating Lupus Arthritis POOL (dyspnea on exertion) Gallstones Cirrhosis Nonalcoholic steatohepatitis (SHARMA) Autoimmune hepatitis High blood pressure Fibromyalgia Diabetes Surgical History History of esophagogastroduodenoscopy (EGD) History of heart artery stent Hx of cholecystectomy Hx of endoscopy History of colonoscopy History of shoulder surgery History of cataract surgery (2010) History of repair of right rotator cuff (08/2011) History of cervical discectomy (07/2009) History of carpal tunnel release Family History Father History of diabetes mellitus, type II History of hypertension History of heart bypass surgery Mother History of diabetes mellitus, type II Brother History of gout Paternal Uncle Cancer Paternal Aunt Cancer Social History Household Members: None Housing: Apartment Are you a primary healthcare recruiter to a significant other at home: No 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 have visiting nurse or other home services: No Alcohol intake: never Patient Tobacco Use Status: Never used Tobacco service: No Current occupational status: disabled Assessment & Plan Assessment & Plan (1) Diabetes: Comment: NIDDM Code(s): E11.9 - Type 2 diabetes mellitus without complications Plan: Personal Continuous Glucose Monitor: Patient started Leobardo 3 sensor approximately 10 days ago. Patient reports she was on prednisone and was experiencing hyperglycemia but has stopped prednisone since SaturdaySeptember 26, over the past several days patient has experience several episodes of hypoglycemia overnight. Recommended to patient she decrease Lantus from 8 units daily to 6 units daily, if she continues to experience overnight hypoglycemia contact public health educator or provider. Patient also reports she has not been taking NovoLog prior to breakfast because she feels it was not working. Reviewed with patient topics below: Medications (If applicable) * Name of medication? * Dosing/administration instructions? * Mechanism of action? * Potential side effects? * Potential adverse reaction and appropriate treatment? * Review onset, peak, duration Assess for concerns re: insurance coverage, cost, barriers to compliance Insulin/Injectables (If applicable) * Storage/care of insulin?? * Injection sites? * Site rotation? * Onset, peak, duration * Drawing up insulin? * Injecting insulin/other injectables? * Sharps disposalContinuous blood glucose monitoring (if applicable) Hypoglycemia and Hyperglycemia * Signs and symptoms? * Causes?? * Treatment? * Preventing hypoglycemia? * When to seek medical attention Target Goals: * Blood glucose targets and how you feel when your blood glucose is in and out of your target ranges. * Monitoring and knowing your A1C. * What can make blood glucose go up and down and preventing high and low blood glucose. * Review of blood sugar targets in expected goal range and outside of expected goal range. * Problem solving and preventing hyper/hypoglycemia. . Asked?appropriate questions and demonstrated good understanding of the topics discussed. Patient did ask for sliding scale for insulin, I recommended patient discuss this with endocrine CLAIMS SERVICE ADJUSTOR at visit on 10/08/2024 Patient will follow-up with Diabetes Education nurse in 1 month Patient able to insert sensor independently at home without issue.? Portions of this note were created using voice recognition software, please excuse any words or phrases that may have been misinterpreted. Patient Instructions: Instrucciones para el paciente: CGM proporciona informaci?n sobre el control de la glucosa en emma a lo cassie del d?a, incluidas la hiperglucemia y la hipoglucemia. Contin?e controlando la glucosa en emma seg?n las instrucciones. Siga las pautas de nutrici?n proporcionadas. Informe cualquier molestia de inmediato al proveedor de atenci?n m?dica. Mantente todd hidratado. Puede ba?arse, ducharse, nadar y hacer ejercicio mientras usa el sensor de glucosa. No sumerja el sensor de glucosa en agua niranjan m?s de 30 minutos. Retire el sensor para alex resonancia magn?seymour o alex tomograf?a computarizada. Evite la m?quina de suzanne X en los aeropuertos: retire el sensor o solicite la varita Reduzca la dosis de Lantus de 8 a 6 unidades diarias. Si contin?a experimentando hipoglucemia niranjan la noche o a primera hora de la ma?shar, comun?quese con un educador en diabetes o con un profesional de la basia; realice alex consulta de seguimiento con un educador en diabetes en 2 semanas. Coding Level of Care Code Est Pt Level 1 (44602) Diagnoses Diabetes E11.9
--- OUTSIDE RECORDS SUMMARY | 2024-10-01 11:45 | XMS_ITS | Encounter Summary ---
Author Organization [employer] Address [address] [place] [address] Care Team Providers Care Steward/Stewardess Tourist Class Name Role Phone Unavailable Primary Care Provider Unavailabl e Encounter Details Date Type Department Care Team (Latest Contact Info) Description 04/29/2019 Abstract [facility] CONVERSIONS Dental, Provider, DDS Social History Tobacco [...]
--- OUTSIDE RECORDS SUMMARY | 2024-10-01 11:45 | XMS_ITS | Encounter Summary ---
Author Organization [employer] Address [address] [place] [address] Care Team Providers Care Director Marketing Name Role Phone Unavailable Primary Care Provider Unavailabl e Encounter Details Date Type Department Care Team (Latest Contact Info) Description 09/06/2021 Abstract [facility] CONVERSIONS Dental, Provider, DDS Social [...]
--- OUTSIDE RECORDS SUMMARY | 2024-10-01 11:45 | XMS_ITS | Encounter Summary ---
Author Organization [employer] Address [address] [place] [address] Care Team Providers Care Range Management Specialist Name Role Phone Unavailable Primary Care Provider Unavailabl e Encounter Details Date Type Department Care Team (Latest Contact Info) Description 02/15/2021 Abstract [facility] CONVERSIONS Dental, Provider, DDS [...]
--- OUTSIDE RECORDS SUMMARY | 2024-10-01 11:45 | XMS_ITS | Encounter Summary ---
Author Organization [employer] Address [address] [place] [address] Care Team Providers Care Chief Operator Lock Tender Name Role Phone Unavailable Primary Care Provider Unavailabl e Reason for Visit * Reason Onset Date Comments Appointment 11/19/2022 Encounter Details Date Type Department Care Team (Late st Contact Info) Description 11/19/2022 Telephone [facility] ADULT DENTAL [address] [place] [address] Alisha Rodas DDS [address] [place], [place] [phone] Appointment Social History Tobacco Use Types Packs/Day [...]
--- OUTSIDE RECORDS SUMMARY | 2024-10-01 11:45 | XMS_ITS | Clinical Summary ---
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
--- OUTSIDE RECORDS SUMMARY | 2024-10-01 11:45 | XMS_ITS | Encounter Summary ---
Author Organization [employer] Address [address] [place] [address] Care Team Providers Care Fur Trimming Machine Operator Name Role Phone Unavailable Primary Care Provider Unavailabl e Reason for Visit * Reason Onset Date Comments Appointment 09/11/2022 Encounter Details Date Type Department Care Team (Late st Contact Info) Description 09/11/2022 Telephone [facility] ADULT DENTAL [address] [place], [place] [phone] Rich Mancera DDS [address] [place], [place] [phone] Appointment Social History Tobacco Use Types Packs/Day [...]
--- OUTSIDE RECORDS SUMMARY | 2024-10-01 11:45 | XMS_ITS | Encounter Summary ---
Author Organization [facility] [employer] Address [address] [place] [address] Care Team Providers Care Obstetrical Anesthesiologist Name Role Phone Unavailable Primary Care Provider Unavailabl e Reason for Referral * Medications - Closed Specialty Diagnoses / Procedures Referred By Ghada pabon Referred To Contact Alisha Rodas DDS [address] [place] [address] Phone: tel: fax: Referral ID Status Reason Start Date Expiration Date Visits Re quested Visits Authorized [id number] Closed 1 1 Encounter Details Date Type Department Care Team (Late st Contact Info) Description 08/28/[address] [facility] ADULT DENTAL [address] [place] [address] Alisha Rodas DDS [address] [place] [address] Social History Tobacco Use Types Packs/Day Years [...]
--- OUTSIDE RECORDS SUMMARY | 2024-10-01 11:45 | XMS_ITS | Encounter Summary ---
Author Organization [employer] Address [address] [place] [address] Care Team Providers Care Child Therapist Name Role Phone Unavailable Primary Care Provider Unavailabl e Reason for Visit * Reason Onset Date Comments medication 08/27/2023 Encounter Details Date Type Department Care Team (Late st Contact Info) Description 08/27/2023 Telephone [facility] ADULT DENTAL [address] [place] [address] Alisha Rodas DDS [address] [place], [place] [phone] medication Social History Tobacco Use Types Packs/Day [...]
== END 2024-10-01 11:29 | disposition home or self-care (01) ==
LOC: HO.ENCR 10:27
PROVIDERS: PCP Internal Medicine; Visit Provider Registered Nurse Diabetes Educator
DX: E11.9 Type 2 diabetes mellitus without complications (principal)

== ENCOUNTER → 2024-10-01 10:26 | Outpatient (BNVA) | payer MEDICARE, MEDICAID, SELFPAY ==
[2024-07-15 09:17] VITALS: BP 128/60; BMI 27.1
== END ==
PROVIDERS: PCP Internal Medicine; Visit Provider Registered Nurse Diabetes Educator
DX: E11.9 Type 2 diabetes mellitus without complications (principal)
CPT/HCPCS: 99211

== ENCOUNTER 2024-10-05 06:08 | Emergency (ER) | payer MEDICARE, MEDICAID, SELFPAY ==
[2024-07-15 09:17] VITALS: BP 128/60; BMI 27.1
--- NOTE | ~2024-10-05 | XR_ITS ---
CLINICAL HISTORY: chest pain 1 view chest x-ray Comparison: 01/06/2022 Findings: The lungs are clear. Heart size is normal. No acute fracture. IMPRESSION: 1. No acute findings. This document has been electronically signed by: Jb Graham MD on 10/05/2024 06:31:16
[2024-10-05 06:10] VITALS: BP 116/62; PULSE 85; RESP 18; TEMP 36.1; O2SAT 98; BMI 25.0
--- NOTE | 2024-10-05 06:17 | ECG_ITS ---
Test Reason : CP Blood Pressure : */* mmHG Vent. Rate : 85 BPM Atrial Rate : 85 BPM P-R Int : 172 ms QRS Dur : 72 ms QT Int : 368 ms P-R-T Axes : 55 21 35 degrees QTcB Int : 437 ms Normal sinus rhythm Normal ECG When compared with ECG of 01-Jul-2024 11:16, No significant change was found Referred By: Generic ED Physician Electronically Signed By: FRIEDA HILLIARD MD
[2024-10-05 06:45] LABS: MANUAL DIFF FLAG NO
[2024-10-05 06:49] LABS: Basophils Percent Auto 0.8 % (0-2); Eosinophils Absolute Auto 0.1 X10*3/uL (0.0-0.4); Eosinophils Percent Auto 2.5 % (0-4); Hematocrit 36.2 % (37.0-47.0); Hemoglobin 11.5 g/dl (12.0-16.0); Imm Gran Abs Auto 0.01 X10*3/uL (0.00-0.03); Imm Gran Pct Auto 0.2 % (0.0-0.4); Lymphocytes Absolute Auto 0.9 X10*3/uL (1.2-4.9); Lymphocytes Percent Auto 17.7 % (20-40); Mean Corpuscular HGB Conc 31.8 g/dl (31.0-35.0); Mean Corpuscular Hemoglobin 28.2 pg (27.0-33.0); Mean Corpuscular Volume 88.7 fL (80.0-98.0); Mean Platelet Volume 9.7 fL (9.4-12.3); Monocytes Absolute Auto 0.5 X10*3/uL (0.1-1.2); Monocytes Percent Auto 10.3 % (2-11); Neutrophils Absolute Auto 3.5 x10*3/uL (2.0-8.3); Neutrophils Percent Auto 68.5 % (45-73); Platelet Count 190 X10*3/uL (160-400); Red Blood Count 4.08 X10*6/uL (4.20-5.50); Red Cell Distribution Width 15.8 % (11.0-16.0); White Blood Count 5.2 X10*3/uL (4.8-10.8)
[2024-10-05 06:56] LABS: IDNOW Serial# 6674DD1D; Strep A Nucleic Acid Negative (Negative)
[2024-10-05 07:04] LABS: Alanine Aminotransferase 34 U/L (0-31); Albumin Level 3.9 g/dL (3.5-5.0); Alkaline Phosphatase 168 U/L (39-117); Anion Gap 12 (12-20); Aspartate Amino Transferase 55 U/L (5-31); Bilirubin Total 0.4 mg/dL (0.0-1.0); Blood Urea Nitrogen 10 mg/dL (9-16); Calcium 9.2 mg/dL (8.4-10.2); Carbon Dioxide 23 mmol/L (22-29); Chloride 107 mmol/L (96-108); Creatinine Clr Calc Pharmacy 73.4; Estimated Glomerular Filt Rate > 60; Glucose Random 155 mg/dL (60-115); Potassium 3.6 mmol/L (3.3-5.1); Sodium 138 mmol/L (135-145); Total Protein 9.3 g/dL (6.5-8.0)
[2024-10-05 07:09] LABS: Troponin-I High Sensitivity < 2.7 ng/L (<3.5-17.0)
[2024-10-05 07:24] LABS: Influenza A PCR NEGATIVE (Negative); Influenza B PCR NEGATIVE (Negative); Resp Syncy Virus RNA Qual PCR NEGATIVE (Negative); SARS COV2 PCR INHOUSE NEGATIVE (Negative)
[2024-10-05 08:31] VITALS: BP 113/56; PULSE 81; RESP 14; TEMP 36.6; O2SAT 96
--- NOTE | 2024-10-05 08:54 | ED_ITS ---
HPI - Chest Pain General Chief Complaint: Chest Pain Stated Complaint: chest pain Time Seen by Provider: 10/05/24 08:52 Source: patient, RN notes reviewed and old records reviewed Mode of arrival: ambulatory Limitations: no limitations History of Present Illness ED Provider: Jose HPI narrative: Patient is a 64-year-old female with history of NIDDM, fibromyalgia, HTN, autoimmune hepatitis, Goodwin, cirrhosis, lupus presenting to the emergency department with complaint of nonproductive cough, bilateral ear pain, headache and sore throat since yesterday. Denies fevers. Denies abdominal pain, nausea, vomiting, diarrhea. Complains of chest tightness which she describes as her chest feeling ?dry. ? Denies any dizziness or lightheadedness. Denies any known sick contacts but states she is around her grandchildren frequently. Related Data Home Medications ?Medication ?Instructions ?Recorded ?Confirmed albuterol sulfate 90 mcg/actuation 90 mcg inhalation BID PRN 06/06/20 09/21/24 aerosol inhaler Shortness Of Breath fluticasone propionate 50 50 mcg intranasal DAILY PRN Nasal 06/06/20 09/21/24 mcg/actuation nasal Congestion spray,suspension lorazepam 0.5 mg tablet 0.5 mg PO QID PRN Anxiety 06/07/20 09/21/24 ondansetron 4 mg disintegrating 4 mg PO Q6-8H PRN Nausea 06/07/20 09/21/24 tablet oxycodone 5 mg tablet 5 mg PO Q4-6H PRN Pain 06/07/20 09/21/24 empagliflozin 25 mg tablet 25 mg PO DAILY 06/13/20 09/21/24 (Jardiance) blood sugar diagnostic (FreeStyle #10 ea 02/25/23 09/11/24 Lite Strips) cholecalciferol (vitamin D3) 25 25 mcg PO DAILY 02/25/23 09/21/24 mcg (1,000 unit) tablet lisinopril 2.5 mg tablet 2.5 mg PO DAILY 02/25/23 09/21/24 metformin 500 mg tablet,extended 1,000 mg PO BID 02/25/23 09/21/24 release 24 hr nortriptyline 10 mg capsule 10 mg PO BEDTIME 04/03/24 09/21/24 alcohol swabs (Alcohol Prep Pads) 1 pad topical TID 06/08/24 09/21/24 lancets 33 gauge (TRUEplus Lancets) #100 ea 06/08/24 09/11/24 prednisone 10 mg tablet 10 mg PO BID 09/11/24 09/21/24 Previous Rx's ?Medication ?Instructions ?Recorded walker #1 ea 05/08/20 aspirin 81 mg tablet,delayed 81 mg PO DAILY #30 tabs 12/27/20 release nutrition tx glu 1 ea PO BID #8,000 mL 06/03/23 intol,lac-free,soy-fiber 0.08 gram-1.5 kcal/mL liquid (Glucerna 1.5 Shaheen) acetaminophen 500 mg tablet 500 mg PO Q6H PRN pain #30 tabs 03/11/24 (Tylenol Extra Strength) sucralfate 100 mg/mL oral 10 ml PO BID #1,000 mL 05/13/24 suspension simethicone 125 mg capsule (Gas 125 mg PO BID-QID PRN abdominal 06/08/24 Relief (simethicone)) distention #20 caps thiamine HCl (vitamin B1) 100 mg 100 mg PO DAILY #90 tabs 06/15/24 tablet plecanatide 3 mg tablet (Trulance) 3 mg PO DAILY #30 tabs 07/06/24 lansoprazole 30 mg capsule,delayed 30 mg PO BID 30 days #60 caps 07/16/24 release metoprolol succinate 25 mg 25 mg PO DAILY #90 tabs 08/20/24 tablet,extended release 24 hr FreeStyle Leobardo 3 Plus Sensor #6 ea 09/11/24 (blood-glucose sensor) FreeStyle Leobardo 3 [place] #1 ea 09/11/24 (blood-glucose,director of sales marketing,cont) Lantus Solostar U-100 Insulin 100 8 unit (0.08 mL) subcut QPM 30 09/11/24 unit/mL (3 mL) subcutaneous pen days #3 mL (insulin glargine) insulin aspart U-100 100 unit/mL 2 unit (0.02 mL) subcut DAILY 30 09/11/24 (3 mL) subcutaneous pen (Novolog days #3 mL FlexPen U-100 Insulin aspart) pen needle, diabetic 32 gauge x #100 ea 09/11/24 hydroxychloroquine 200 mg tablet 200 mg PO BID #180 tabs 09/21/24 rosuvastatin 5 mg tablet 5 mg PO DAILY #30 tabs 09/21/24 ascorbic acid (vitamin C) 500 mg 1,000 mg (2 x 500 mg) PO DAILY 09/23/24 tablet #180 tabs azathioprine 50 mg tablet 75 mg (1.5 x 50 mg) PO DAILY #60 09/30/24 tabs benzonatate 100 mg capsule 100 mg PO TID PRN cough #20 caps 10/05/24 prednisone 20 mg tablet 20 mg PO DAILY #5 tabs 10/05/24 Allergies Allergy/AdvReac Type Severity Reaction Status Date / Time duloxetine [From CYMBALTA] Allergy Intermediate SHAKINESS Verified 10/05/24 06:14 Review of Systems 2 Review of Systems: As per HPI Yes all other systems are reviewed and are negative Constitutional: Constitutional: Reports as per HPI PMFSH Past Medical History Medical History Trigger finger, left ring finger Cirrhosis Antiphospholipid antibody syndrome Leg pain, right Abdominal bloating Lupus Arthritis POOL (dyspnea on exertion) Gallstones Cirrhosis Nonalcoholic steatohepatitis (GOODWIN) Autoimmune hepatitis High blood pressure Fibromyalgia Diabetes Surgical History History of esophagogastroduodenoscopy (EGD) History of heart artery stent Hx of cholecystectomy Hx of endoscopy History of colonoscopy History of shoulder surgery History of cataract surgery (2010) History of repair of right rotator cuff (08/2011) History of cervical discectomy (07/2009) History of carpal tunnel release Family History Family History Father History of diabetes mellitus, type II History of hypertension History of heart bypass surgery Mother History of diabetes mellitus, type II Brother History of gout Paternal Uncle Cancer Paternal Aunt Cancer Social History Social History Household Members: None Housing: Apartment Are you a primary caretaker grounds to a significant other at home: No 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 have visiting nurse or other home services: No Alcohol intake: never Patient Tobacco Use Status: Never used Tobacco Advance Directives: No Advance Directives Information Provided: Yes Do you have a plan to hurt others: No Plan service: No Current occupational status: disabled Physical Exam 2 Vital Signs: Vital Signs: Last Vital Signs Temp 97.8 F 10/05/24 08:31 Pulse 81 10/05/24 08:31 Resp 14 10/05/24 08:31 BP 113/56 L 10/05/24 08:31 Pulse Ox 96 10/05/24 08:31 O2 Del Method Room Air 10/05/24 08:31 BMI result Body Mass Index 25.0 Vital signs have been reviewed and appear to be correct. Blood pressure normal. Heart rate normal. Respiratory rate normal. Temperature normal. Oxygen saturation normal. Const: General: cooperative, healthy appearing and no acute distress O rientation/consciousness: oriented to person, oriented to place, oriented to time and patient oriented x3 Limitations: no limitations HEENT: Head: Yes normocephalic and Yes atraumatic Ears: hearing grossly normal bilaterally, external ears normal, TM's normal bilaterally, EAC's normal, mastoids normal bilaterally and no periauricular adenopathy General nose exam: Normal external nose present and Normal nasal mucous membranes and turbinates present Face and sinus: Yes face symmetric Mouth: Normal oral and palatal mucosa present, lip normal, tongue normal, oropharynx normal, moist mucous membranes, no audible dysphonia and no trismus Throat: Yes posterior oropharynx normal, Yes tonsils normal, Yes uvula midline and No uvular edema Eyes: Pupils: Equal, round and reactive pupils present Neck: Neck: Yes normal visual inspection, Yes no lymphadenopathy and Yes supple Resp: Effort & Inspection: normal respiratory effort and able to speak in complete sentences Auscultation: clear to auscultation bilaterally Cardio: Rate: regular rate Rhythm: regular rhythm Heart sounds: S1 normal heart sound present and S2 normal heart sound present GI: Palpation (GI): Soft to palpation and nontender Auscultation: n ormoactive bowel sounds : General: Yes no CVA tenderness Back/Spine/Pelvis: Back: no CVA tenderness Skin: General skin exam: elasticity normal and turgor normal Neuro: General: oriented to person, oriented to place, oriented to time, patient oriented x3, moves all extremities, no focal motor deficits and CN's II- XI intact bilaterally Cranial nerves: Yes Equal, round and reactive pupils present Cognition (Neuro): normal cognition Extrem: General: Yes full ROM, Yes no pedal edema and Yes no calf tenderness Psych: Mental Status: mental status grossly normal Affect: normal affect Thought process: Normal thought process present Medical Decision Making Medical Decision Making [facility] Narrative: Patient is a 64-year-old female with history of NIDDM, fibromyalgia, HTN, autoimmune hepatitis, Goodwin, cirrhosis, lupus presenting to the emergency department with complaint of nonproductive cough, bilateral ear pain, headache and sore throat since yesterday. On exam patient is awake, A+Ox3, VS WNL, afebrile, normal neurological exam without focal deficits, physical exam findings as above. Given reported symptoms and physical exam findings, initial differential includes but is not limited to viral illness, COVID, flu, RSV, pneumonia. Unlikely bronchitis as symptoms began yesterday. Labs unremarkable. X-ray chest notable for no evidence of pneumonia. My interpretation is in agreement with the radiologist's interpretation. Physical exam findings unremarkable. Discussed with patient that symptoms are likely due to viral illness which will resolve over time on their own. Will send prescription for short course of prednisone and benzonatate. Instructed patient to follow up with PCP. Return precautions discussed. Patient verbalized understanding of and agreement with plan. Differential Diagnosis Differential Diagnoses: The differential diagnosis associated with the presentation includes As per [facility] Admission/Observation Consideration of admission/observation: Escalation of care including admission/observation considered Patient would have been admitted to the hospital had their work up had any findings where hospital admission was appropriate and their clinical presentation warranted hospital admission. Lab Data [facility] Lab Attestation statement: I reviewed the patient's lab results. As per [facility] 10/05/24 06:38 10/05/24 06:38 Labs: Lab Results 10/05/24 Range/Units 06:38 WBC 5.2 (4.8-10.8) X10*3/uL RBC 4.08 L (4.20-5.50) X10*6/uL Hgb 11.5 L (12.0-16.0) g/dl Hct 36.2 L (37.0-47.0) % MCV 88.7 (80.0-98.0) fL MCH 28.2 (27.0-33.0) pg MCHC 31.8 (31.0-35.0) g/dl RDW 15.8 (11.0-16.0) % Plt Count 190 (160-400) X10*3/uL MPV 9.7 (9.4-12.3) fL Immature Gran % (Auto) 0.2 (0.0-0.4) % Neut % (Auto) 68.5 (45-73) % Lymph % (Auto) 17.7 L (20-40) % [place] % (Auto) 10.3 (2-11) % Eos % (Auto) 2.5 (0-4) % Baso % (Auto) 0.8 (0-2) % Lymph # (Auto) 0.9 L (1.2-4.9) X10*3/uL [place] # (Auto) 0.5 (0.1-1.2) X10*3/uL Eos # (Auto) 0.1 (0.0-0.4) X10*3/uL Baso # (Auto) 0.0 (0.0-0.2) X10*3/uL Abs Immat Gran (auto) 0.01 (0.00-0.03) X10*3/uL Absolute Neuts (auto) 3.5 (2.0-8.3) x10*3/uL Absolute Nucleated RBC 0.000 (0.0-0.012) X10*3/uL Nucleated RBC % (auto) 0.0 (0.0-0.2) /100WBC Sodium 138 (135-145) mmol/L Potassium 3.6 (3.3-5.1) mmol/L Chloride 107 (96-108) mmol/L Carbon Dioxide 23 (22-29) mmol/L Anion Gap 12 (12-20) BUN 10 (9-16) mg/dL Creatinine 0.67 (0.5-1.4) mg/dL Estim Creat Clear Calc 73.4 Estimated GFR > 60 Random Glucose 155 H (60-115) mg/dL Calcium 9.2 D (8.4-10.2) mg/dL Total Bilirubin 0.4 (0.0-1.0) mg/dL AST 55 H (5-31) U/L ALT 34 H (0-31) U/L Alkaline Phosphatase 168 H (39-117) U/L Troponin I High Sens < 2.7 (<3.5-17.0) ng/L Total Protein 9.3 H (6.5-8.0) g/dL Albumin 3.9 (3.5-5.0) g/dL Influenza Type A (PCR) NEGATIVE (Negative) Influenza Type B (PCR) NEGATIVE (Negative) RSV RNA Qual (PCR) NEGATIVE (Negative) SARS-CoV-2 RNA (RT-PCR) NEGATIVE (Negative) S. pyogenes GrpA FRANCISCA Negative (Negative) Independent Interpretation I performed an independent interpretation of an: EKG (Normal sinus rhythm, rate 85 beats per minute, normal NE interval and QTC, no significant change from prior) and Plain X-Ray Interpretation: No evidence of pneumonia on chest x-ray Radiology Impression Discussion of test interpretation with radiology: I have reviewed the radiologist's reading. Radiologist Impression: 1 view chest x-ray Comparison: 01/06/2022 Findings: The lungs are clear. Heart size is normal. No acute fracture. IMPRESSION: 1. No acute findings. This document has been electronically signed by: Jb Graham MD on 10/05/2024 06:31:16 External Record Review External record reviewed: Inpatient record, Office record and Outpatient record Prescription Management I considered prescription management with: Other Chronic Conditions Patient?s care impacted by: Diabetes and Hypertension Discharge Plan Discharge Clinical Impression: Upper respiratory infection, viral Patient Disposition: Home, Self-Care Instructions: Upper Respiratory Infection (DC), Viral Syndrome (ED) Additional Instructions: You were evaluated in the emergency department today for cough. Your chest x- ray did not show evidence of a pneumonia. Your cough is most likely due to a viral illness which will improve on its own with rest and fluids. You are being prescribed a short course of prednisone which is a steroid to decrease inflammation. You are being prescribed benzonatate which you can take every 8 hours as needed for cough. Keep this medication away from children. You can also gargle with warm salt water several times daily. Please schedule an appointment for follow-up with your primary care physician within 2 days. Return to the emergency department if you experience worsening cough, fever 100.4? F or greater, recurrent vomiting, chest pain, shortness of breath, or any other concerning symptoms. Prescriptions: New prednisone 20 mg tablet 20 mg PO DAILY Qty: 5 0RF benzonatate 100 mg capsule 100 mg PO TID PRN (Reason: cough) Qty: 20 0RF No Action aspirin 81 mg tablet,delayed release (DR/EC) 81 mg PO DAILY Qty: 30 5RF sucralfate 100 mg/mL suspension 10 ml PO BID Qty: 1000 2RF thiamine HCl (vitamin B1) 100 mg tablet 100 mg PO DAILY Qty: 90 1RF lansoprazole 30 mg capsule,delayed release(DR/EC) 30 mg PO BID 30 Days Qty: 60 2RF metoprolol succinate 25 mg tablet extended release 24 hr 25 mg PO DAILY Qty: 90 3RF rosuvastatin 5 mg tablet 5 mg PO DAILY Qty: 30 5RF Rx Instructions: New cholesterol medication ascorbic acid (vitamin C) 500 mg tablet 1,000 mg PO DAILY Qty: 180 1RF azathioprine 50 mg tablet 75 mg PO DAILY Qty: 60 1RF lorazepam 0.5 mg tablet 0.5 mg PO QID PRN (Reason: Anxiety) ondansetron 4 mg tablet,disintegrating 4 mg PO Q6-8H PRN (Reason: Nausea) oxycodone 5 mg tablet 5 mg PO Q4-6H PRN (Reason: Pain) (DME) shade Misc See Rx Instructions .ROUTE .MEDSUPPLY Qty: 1 0RF Rx Instructions: As directed Jardiance 25 mg Tablet 25 mg PO DAILY acetaminophen [Tylenol Extra Strength] 500 mg tablet 500 mg PO Q6H PRN (Reason: pain) Qty: 30 0RF fluticasone propionate 50 mcg/actuation spray,suspension 50 mcg intranasal DAILY PRN (Reason: Nasal Congestion) albuterol sulfate 90 mcg/actuation HFA aerosol inhaler 90 mcg inhalation BID PRN (Reason: Shortness Of Breath) lisinopril 2.5 mg tablet 2.5 mg PO DAILY (DME) FreeStyle Lite Strips Strip See Rx Instructions .ROUTE TID Qty: 10 Rx Instructions: As directed metformin 500 mg tablet extended release 24 hr 1,000 mg PO BID cholecalciferol (vitamin D3) 25 mcg (1,000 unit) tablet 25 mcg PO DAILY nortriptyline 10 mg capsule 10 mg PO BEDTIME alcohol swabs [Alcohol Prep Pads] Pads, Medicated 1 pad topical TID simethicone [Gas Relief (simethicone)] 125 mg capsule 125 mg PO BID-QID PRN (Reason: abdominal distention) Qty: 20 0RF (DME) lancets [TRUEplus Lancets] 33 gauge misc See Rx Instructions .ROUTE QAM Qty: 100 Rx Instructions: As directed Glucerna 1.5 Shaheen 0.08-1.5 gram-kcal/mL liquid 1 ea PO BID Qty: 8000 3RF Trulance 3 mg tablet 3 mg PO DAILY Qty: 30 3RF prednisone 10 mg tablet 10 mg PO BID insulin glargine [Lantus Solostar U-100 Insulin] 100 unit/mL (3 mL) insulin pen 8 unit subcut QPM 30 Days Qty: 3 3RF (DME) pen needle, diabetic 32 gauge x 5/32 needle See Rx Instructions .ROUTE .MEDSUPPLY Qty: 100 3RF Rx Instructions: twice daily (DME) FreeStyle Leobardo 3 Plus Sensor Device See Rx Instructions .ROUTE .MEDSUPPLY Qty: 6 3RF Rx Instructions: every 15 days (DME) FreeStyle Leobardo 3 [place] Misc See Rx Instructions .ROUTE .MEDSUPPLY Qty: 1 0RF Rx Instructions: As directed for use with freestyle 3 sensors insulin aspart U-100 [Novolog FlexPen U-100 Insulin] 100 unit/mL (3 mL) insulin pen 2 unit subcut DAILY 30 Days Qty: 3 6RF Rx Instructions: with breakfast hydroxychloroquine 200 mg tablet 200 mg PO BID Qty: 180 1RF Print Language: Montenegrin
[2024-10-05 09:22] VITALS: BP 113/56; PULSE 81; RESP 14; TEMP 36.6; O2SAT 96
== END 2024-10-05 09:22 | disposition home or self-care (01) ==
PROVIDERS: Emergency Provider Emergency Medicine Emergency Medical Services; PCP Internal Medicine
DX: J06.9 Acute upper respiratory infection, unspecified (principal); R05.9 Cough, unspecified; E11.9 Type 2 diabetes mellitus without complications; I10 Essential (primary) hypertension; Z03.818 Encounter for observation for suspected exposure to other biological agents ruled out
CPT/HCPCS: 0241U; 36415; 71045; 80053; 84484; 85025; 87651; 93005; 99283; 99285

== ENCOUNTER → 2024-10-05 06:17 | Outpatient (BNV) | payer MEDICARE, MEDICAID, SELFPAY ==
[2024-07-15 09:17] VITALS: BP 128/60; BMI 27.1
== END ==
PROVIDERS: Emergency Provider Emergency Medicine Emergency Medical Services; PCP Internal Medicine; Visit Provider Internal Medicine Cardiovascular Disease
DX: R07.9 Chest pain, unspecified (principal)
CPT/HCPCS: 93010

== ENCOUNTER → 2024-10-05 06:20 | Outpatient (BNV) | payer MEDICARE, MEDICAID, SELFPAY ==
[2024-07-15 09:17] VITALS: BP 128/60; BMI 27.1
== END ==
PROVIDERS: PCP Internal Medicine; Visit Provider Specialist
DX: R07.9 Chest pain, unspecified (principal)
CPT/HCPCS: 71045

== ENCOUNTER 2024-10-08 07:40 | Outpatient (REF) | payer MEDICARE, MEDICAID, SELFPAY ==
[2024-07-15 09:17] VITALS: BP 128/60; BMI 27.1
--- NOTE | ~2024-10-08 | MR_ITS ---
EXAMINATION: MR CERVICAL SPINE WITHOUT CONTRAST CLINICAL INFORMATION: Neck pain, left arm pain off and on with numbness and tingling in fingers. Symptoms x1 month. Remote history of cervical disc surgery in 2008. COMPARISON: 04/13/2016 MR cervical. TECHNIQUE: Multiplanar multisequence MR imaging of the cervical spine was done prior to and without the administration IV gadolinium. Examination was performed on a 1.5 Marisol Siemens unit, using standard sequences. FINDINGS: CORONAL ALIGNMENT: -Trace right convex scoliosis, possibly positional. SAGITTAL ALIGNMENT: -Straightening of the normal lordosis. -There is a 2 mm anterolisthesis of C4 on C5, and C5 on C6. Sagittal alignment is otherwise anatomic. CRANIOCERVICAL JUNCTION/C1-2 ARTICULATIONS: -Intact and aligned. VERTEBRAL BODIES/BONE MARROW: -There is now bone marrow edema, or abnormal infiltrating bone marrow signal. There are no compression deformities. -There is normal facet alignment. DISCS: -There is mild to moderate diffuse loss of disc height and signal, most significant at C6-7. There has likely been microdiscectomy at C6-7. CERVICAL CORD: -Normal in caliber and signal throughout. There is no regional cord impingement, signal abnormality, expansion, or thinning. PARAVERTEBRAL SOFT TISSUES: -There is no paravertebral or paraspinous edema or abnormal fluid collection. -The thyroid is obscured by a saturation band. VISUALIZED INTRACRANIAL STRUCTURES: -Within normal limits. AXIAL DISC SPACE IMAGING: C2-C3: There are mild bilateral uncinate spurs, mild to moderate right greater than left facet spurs, however there is no significant central canal or lateral recess narrowing. There is moderate left and mild right neural foraminal narrowing. Minimal neural foraminal narrowing progression. C3-C4: There is a shallow disc bulge present, indenting upon the ventral thecal sac but not contacting the cord. This results in minimal central canal narrowing. There is severe left and mild right hypertrophic degenerative facet change, mild bilateral uncinate spurring, with the findings resulting in severe left neural foraminal encroachment. Findings have mildly progressed. C4-C5: No significant disc bulge. No central canal or lateral recess narrowing. Moderate left and mild right hypertrophic degenerative facet changes present, and left greater than right uncinate spurring. Findings contribute to mild right and severe left neural foraminal narrowing. Findings have mildly progressed. C5-C6: Minimal shallow disc bulge, without significant mass effect upon the thecal sac. No central canal narrowing. Moderate left and mild right hypertrophic degenerative facet changes. Mild bilateral uncinate spurs. Combination of findings is resulting in mild right and moderate to severe left neural foraminal narrowing. Findings have mildly progressed. C6-C7: Prior microdiscectomy at this level. There is a recurrent disc osteophytic ridge complex present, extending into both foraminal zones and contiguous with uncinate spurs. This indents upon the ventral thecal sac, contacts and minimally flattens the ventral aspect of the cord. There is preserved CSF posterior lateral and posterior to the cord. There is mild central canal stenosis. There is mild lateral recess stenosis bilaterally. Mild facet hypertrophy bilaterally contributes to severe bilateral neural foraminal impingement. Findings have progressed at this level. C7-T1: There is no central canal or significant neural foraminal narrowing. T1-T4: There is no significant central canal or neural foraminal narrowing. MR/MR cervical spine wo con IMPRESSION: 1. Mild to moderate spondylosis of the cervical spine, with progression of the left neural foraminal narrowing at most levels secondary to uncinate and more significantly progressing left greater than right hypertrophic facet spurring. 2. Prior microdiscectomy at C6-7. There has been progression of spondylosis at this level as well with mild central canal and severe bilateral neural foraminal impingement. See above for details. 3. There is no high-grade central canal stenosis, cord impingement, or cord signal abnormality. Electronically signed by: Bj Molina MD 10/08/2024 09:42 AM EDT
--- OUTSIDE RECORDS SUMMARY | 2024-10-08 07:43 | XMS_ITS | Encounter Summary ---
Author Organization [employer] Address [address] [place] [address] Care Team Providers Care Municipal Engineer Name Role Phone Unavailable Primary Care Provider Unavailabl e Reason for Referral * Medications - Closed Specialty Diagnoses / Procedures Referred By Ghada pabon Referred To Contact Alisha Rodas DDS [address] [place] [address] Phone: tel: fax: Referral ID Status Reason Start Date Expiration Date Visits Re quested Visits Authorized [id number] Closed 1 1 Encounter Details Date Type Department Care Team (Late st Contact Info) Description 08/28/2023 Orders Only [facility] ADULT DENTAL [address] [place] [address] Alisha Rodas DDS [address] [place] [address] Social History Tobacco Use Types Packs/Day Years [...]
--- OUTSIDE RECORDS SUMMARY | 2024-10-08 07:43 | XMS_ITS | Encounter Summary ---
Author Organization [employer] Address [address] [facility] [address] [place] [address] Care Team Providers Care Timber Appraiser Name Role Phone Unavailable Primary Care Provider Unavailabl e Reason for Visit * Reason Onset Date Comments medication 08/27/2023 Encounter Details Date Type Department Care Team (Late st Contact Info) Description 08/27/2023 Telephone [facility] ADULT DENTAL [address] [place] [address] Alisha Rodas DDS [address] [place], [place] [phone] medication Social History Tobacco Use Types Packs/Day [...]
--- OUTSIDE RECORDS SUMMARY | 2024-10-08 07:43 | XMS_ITS | Encounter Summary ---
Author Organization [employer] Address [address] [place] [address] Care Team Providers Care Fund Controller Name Role Phone Unavailable Primary Care Provider Unavailabl e Reason for Visit * Reason Onset Date Comments Appointment 09/11/2022 Encounter Details Date Type Department Care Team (Late st Contact Info) Description 09/11/2022 Telephone [facility] ADULT DENTAL [address] [place], [place] [phone] Rich Mancera DDS [address], [place] [phone] Appointment Social History Tobacco Use Types Packs/Day [...]
--- OUTSIDE RECORDS SUMMARY | 2024-10-08 07:43 | XMS_ITS | Encounter Summary ---
Author Organization [employer] Address [address] [place] [address] Care Team Providers Care Linen Attendant Name Role Phone Unavailable Primary Care Provider Unavailabl e Encounter Details Date Type Department Care Team (Latest Contact Info) Description 02/15/2021 Abstract [facility] CONVERSIONS Dental, Provider, DDS Social History [...]
--- OUTSIDE RECORDS SUMMARY | 2024-10-08 07:43 | XMS_ITS | Encounter Summary ---
Author Organization [employer] Address [address] [place] [address] Care Team Providers Care Inspector Tester Sorter Name Role Phone Unavailable Primary Care Provider Unavailabl e Encounter Details Date Type Department Care Team (Latest Contact Info) Description 09/06/2021 Abstract [facility] CONVERSIONS Dental, Provider, DDS Social History [...]
--- OUTSIDE RECORDS SUMMARY | 2024-10-08 07:43 | XMS_ITS | Clinical Summary ---
Author Organization [employer] Address [address] [facility] [address] [place] [address] Care Team Providers Care Brilliandeer Looper Name Role Phone Unavailable Primary Care Provider [...] (SHARMA) 08/13/2023 Atherosclerotic heart diseas e of [place] coronary artery with other forms of angina [...] 09/17/2013 Diabetes mellitus 09/17/2013 Hypertension 09/17/2013 Immunizations Immunization Administration Dates Next Due Influenza injectable quadriv [...] patient's age to complete this topic Meningococcal B Vaccine Aged Out No l onger eligible based on patient's age to complete [...] Most Recently Relevant to Health Maintenance Insurance [facility] STANDARD MEDICARE DENTAL-[facility] MEDICAID [facility] ADULT
--- OUTSIDE RECORDS SUMMARY | 2024-10-08 07:43 | XMS_ITS | Encounter Summary ---
Author Organization [employer] Address [address] [place] [address] Care Team Providers Care Yard Demurrage Clerk Name Role Phone Unavailable Primary Care Provider Unavailabl e Reason for Visit * Reason Onset Date Comments Appointment 11/19/2022 Encounter Details Date Type Department Care Team (Late st Contact Info) Description 11/19/2022 Telephone [facility] ADULT DENTAL [address] [place] [address] Alisha Rodas DDS [address], [place] [phone] Appointment Social History Tobacco Use Types Packs/Day [...]
--- OUTSIDE RECORDS SUMMARY | 2024-10-08 07:43 | XMS_ITS | Encounter Summary ---
Author Organization [employer] Address [address] [place] [address] Care Team Providers Care Electric Utility Lineworker Name Role Phone Unavailable Primary Care Provider Unavailabl e Encounter Details Date Type Department Care Team (Latest Contact Info) Description 04/29/2019 Abstract [facility] CONVERSIONS Dental, Provider, DDS Social History Tobacco [...]
== END 2024-10-08 07:41 | disposition home or self-care (01) ==
LOC: HO.MRI 07:40
PROVIDERS: Visit Provider Internal Medicine
DX: M54.2 Cervicalgia (principal); E11.9 Type 2 diabetes mellitus without complications
CPT/HCPCS: 72141; 82947; 83036; 99212

== ENCOUNTER → 2024-10-08 07:45 | Outpatient (BNV) | payer MEDICARE, MEDICAID, SELFPAY ==
[2024-07-15 09:17] VITALS: BP 128/60; BMI 27.1
== END ==
PROVIDERS: Visit Provider Radiology Diagnostic Radiology
DX: M47.812 Spondylosis without myelopathy or radiculopathy, cervical region (principal); M99.61 Osseous and subluxation stenosis of intervertebral foramina of cervical region
CPT/HCPCS: 72141

== ENCOUNTER 2024-10-08 09:19 | Outpatient (AMB) | payer MEDICARE, MEDICAID, SELFPAY ==
[2024-07-15 09:17] VITALS: BP 128/60; BMI 27.1
--- NOTE | 2024-10-08 08:31 | A.OFFVIS_ITS ---
Vital Signs 10/08/24 09:29 Height 5 ft 2 in Weight 136 lb 10.986 oz BMI 25.0 BP 138/68 Blood Pressure Location Rt brachial Position Sitting Pulse 77 Pulse Source Pulse Oximeter Pulse Oximetry (%) 95 Oxygen Delivery Method Room Air Intake Visit Reasons: T2DM Intake Note: Patient presents today for a follow-up on Type 2 Diabetes Mellitus: Patient in on 20 mg of Prednisone Last Diabetic eye exam was on: 08/2024 Last Podiatry exam was on: Patient does not see a Thermometer Maker Most recent HbA1c: 7.5%, 10/08/2024 Random Glucose- 190 mg/dL, Today Middleware Administrator Required: Yes Middleware Administrator Language: Design Maintenance Engineer Services: Middleware Administrator Offered & Declined Information Interpreted: non-clinical & clinical Accompanied by: Self / Same As Patient Allergies duloxetine [From CYMBALTA] Allergy (Intermediate, Verified 10/08/24 09:33) JUVE WILL Comments Details: [age] YO female who is seen in f/u for T2DM. Last A1C 7.8% 07/24/24 up from 7.1%. She had been on steroids shortly before the A1c was checked. Initially diagnosed with T2DM in 2008. Saw endocrinology in the past and was discharged due to normal A1C Was initially started on treatment with: metformin januvia was ineffective Current regimen: Lantus 6 units in the evening Has been taking 10 units since on Prednisone which stops tomorrow Prescribed Humalog with breakfast but had stopped it wasn't working glipizide 10mg restarted but caused afternoon lows Jardiance 25 mg metformin ER 1000mg bid Dexcom average glucose: 179 14 day continuous glucose monitor report reviewed Glucose Managment indicator 7.6 % Days with CGM data 94 % TIme in ranges: 14 % very high (above 250) 25 % high ?(181-250) Sixty-one % in range ?(70-180] 0 % low (69-55) 0 % ?very low (below 54) Interpretation: Postprandial highs starting after back breakfast and for several hours after lunch Treats lows with oj, soda doesn't recheck afterward Most recent A1C 7.5% 10/08/24 7.8% on 07/14/24 up from previous 7.1% 03/19/25 Family history of T2DM: mother, father, aunts Denies retinopathy: eyes checked yearly, 09/2024 Has neuropathy, some burning pain does not see podiatry No nephropathy, on low-dose LESLEE inhibitor 07/14/2024 eGFR>60 10/2023 microalbumin less than 5 Has HLD, on statin. Last LDL 67 as measured on 07/14/2024. Has CAD stent 2022 Sees cardiology every 6 months Followed by Rheumatology for lupus Diet: breakfast skips first time she eats is at 12 pm 2 eggs, bower, hash browns or djiboutian toast with bananas doesn't eat anything or supper or may have small sandwich Weight: stable lost several pounds over the last year previously had been 150 Recently seen by life skills educator [facility] Medical History Trigger finger, left ring finger Cirrhosis Antiphospholipid antibody syndrome Leg pain, right Abdominal bloating Lupus Arthritis POOL (dyspnea on exertion) Gallstones Cirrhosis Nonalcoholic steatohepatitis (SHARMA) Autoimmune hepatitis High blood pressure Fibromyalgia Diabetes Surgical History History of esophagogastroduodenoscopy (EGD) History of heart artery stent Hx of cholecystectomy Hx of endoscopy History of colonoscopy History of shoulder surgery History of cataract surgery (2010) History of repair of right rotator cuff (08/2011) History of cervical discectomy (07/2009) History of carpal tunnel release Family History Father History of diabetes mellitus, type II History of hypertension History of heart bypass surgery Mother History of diabetes mellitus, type II Brother History of gout Paternal Uncle Cancer Paternal Aunt Cancer Social History Household Members: None Housing: Apartment Are you a primary care management specialist to a significant other at home: No 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 have visiting nurse or other home services: No Alcohol intake: never Patient Tobacco Use Status: Never used Tobacco service: No Current occupational status: disabled Physical Exam Vital Signs: Last Vital Signs Pulse 77 10/08/24 09:29 BP 138/68 10/08/24 09:29 Pulse Ox 95 10/08/24 09:29 Oxygen Delivery Method Room Air 10/08/24 09:29 BMI result Body Mass Index 25.0 Const Other: Absence of Cushingoid features. Absence of acromegalic features. Neck exam reveals nl size thyroid about 15 gms. No thyroid nodules palpable. Heart S1 S2, Reg R/R. No M/R G. Skin exam reveals absence of vitiligo or acanthosis nigricans. Visual exam of foot performed. No ulcerations or open lesions. No inter digit maceration or fissuring. No onychomycosis, no callouses. Sensation intact to monofilament exam. Vibratory sensation is normal with 128 Hz tuning fork. Slight hammertoes and slight bilateral bunion deformity Results AMB Hemoglobin A1c AMB Hemoglobin A1c 7.5 % Last Edit by WILLIAM Whitley on 10/08/24 10:00 Results Reviewed Results Reviewed: Laboratory Last Values Glucose (Clinic) 190 mg/dL (60-115) H 10/08/24 09:49 Hgb A1c (Clinic) 7.5 % (4.0-6.0) H 10/08/24 09:59 Assessment & Plan Assessment & Plan (1) Diabetes: Comment: NIDDM Code(s): E11.9 - Type 2 diabetes mellitus without complications Category: Medical Plan: 64-year-old type 2 diabetic with intermittent neuropathy and coronary artery disease with the an A1c of 7.5%. She is having postprandial highs after breakfast and lunch with the escalating numbers throughout the day. She was advised to stop glipizide as it has been causing lows for her. We will change Lantus to Tresiba insulin 10 units Restart NovoLog at 4 units for breakfast Continue Jardiance 25 mg continue metformin a 1000 mg ER twice daily I would not recommend a GLP 1 agonist for this patient she has a tight pylorus and delayed emptying of her stomach along with gastritis and I believe a GLP 1 agonist would aggravate the symptoms. The patient had an opportunity to ask questions regarding treatment plan. The patient expressed understanding and agreement with the above treatment plan. The patient is aware they should contact our office by phone for worsening glucose readings or for any low blood sugars which may warrant a change in diabetes medication. Compliance is encouraged with medications and any followup testing/consults which may have been ordered. Follow up 2-1/2 weeks Orders: Orders AMB Hemoglobin A1c Today E11.9 - Type 2 diabetes mellitus without complications Medications: New insulin degludec (Tresiba FlexTouch U-100 insulin) 10 units (0.1 mL) subcut DAILY 30 days 3 mL 11RF Changed From insulin aspart U-100 (Novolog FlexPen U-100 Insulin aspart) with breakfast 2 units (0.02 mL) subcut DAILY 30 days 3 mL 6RF To insulin aspart U-100 (Novolog FlexPen U-100 Insulin aspart) with breakfast 4 units (0.04 mL) subcut DAILY 30 days 3 mL 6RF On Hold Lantus Solostar U-100 Insulin (insulin glargine) Hold Comment: Doctor's Order 8 units (0.08 mL) subcut QPM 30 days 3 mL 3RF NS Patient Instructions: Check your feet daily looking for any signs of infection, drainage, redness, ulceration and seek medical attention if this occurs. Break in shoes gradually and do not wear open-toed shoes or walk stocking footed or barefooted. The patient was counseled to achieve a target A1C of 7% (154 avg). Fasting blood sugars should be 90-130 in the morning and less than 180 two hours after meals. Reviewed the relationship between poor diabetic control and the development of complications. Coding Diagnoses Diabetes E11.9
[2024-10-08 09:29] VITALS: BP 138/68; PULSE 77; O2SAT 95; BMI 25.0
[2024-10-08 09:54] LABS: Glucose, Whole Blood 190 mg/dL (60-115)
--- OUTSIDE RECORDS SUMMARY | 2024-10-08 09:55 | XMS_ITS | Encounter Summary ---
Author Organization [employer] Address [address] [place] [address] Care Team Providers Care Repairer Welding Equipment Name Role Phone Unavailable Primary Care Provider Unavailabl e Reason for Visit * Reason Onset Date Comments Appointment 11/19/2022 Encounter Details Date Type Department Care Team (Late st Contact Info) Description 11/19/2022 Telephone [facility] ADULT DENTAL [address] [place] [address] Alisha Rodas DDS [address] [place], [place] [phone] Appointment Social History Tobacco Use Types Packs/Day [...]
--- OUTSIDE RECORDS SUMMARY | 2024-10-08 09:55 | XMS_ITS | Encounter Summary ---
Author Organization [employer] Address [address] [place] [address] Care Team Providers Care Wine Bottle Inspector Name Role Phone Unavailable Primary Care Provider Unavailabl e Encounter Details Date Type Department Care Team (Latest Contact Info) Description 09/06/2021 Abstract [facility] CONVERSIONS Dental, Provider, DDS Social History [...]
--- OUTSIDE RECORDS SUMMARY | 2024-10-08 09:55 | XMS_ITS | Encounter Summary ---
Author Organization [employer] Address [address] [place] [address] Care Team Providers Care Sawmill Worker Name Role Phone Unavailable Primary Care Provider Unavailabl e Encounter Details Date Type Department Care Team (Latest Contact Info) Description 02/15/2021 Abstract [facility] CONVERSIONS Dental, Provider, DDS Social [...]
--- OUTSIDE RECORDS SUMMARY | 2024-10-08 09:55 | XMS_ITS | Encounter Summary ---
Author Organization [employer] Address [address] [place] [address] Care Team Providers Care Travel Specialist Name Role Phone Unavailable Primary Care Provider Unavailabl e Reason for Referral * Medications - Closed Specialty Diagnoses / Procedures Referred By Ghada pabon Referred To Contact Alisha Rodas DDS [address] [place] [address] Phone: tel: fax: Referral ID Status Reason Start Date Expiration Date Visits Re quested Visits Authorized [id number] Closed 1 1 Encounter Details Date Type Department Care Team (Late st Contact Info) Description 08/28/2023 Orders Only [facility] ADULT DENTAL [address] [place] [address] Alisha Rodas DDS [address] [place] [address] Social History Tobacco Use Types Packs/Day Years [...]
--- OUTSIDE RECORDS SUMMARY | 2024-10-08 09:55 | XMS_ITS | Clinical Summary ---
Author Organization [employer] Address [address] [facility] [address] [place] [address] Care Team Providers Care Asian Studies Program Chair Name Role Phone Unavailable Primary Care Provider [...] (SHARMA) 08/13/2023 Atherosclerotic heart diseas e of [place]roqu[place] coronary artery with other forms of angina [...] Most Recently Relevant to Health Maintenance Insurance [facility] STANDARD MEDICARE [facility]AL[facility] MEDICAID [facility] ADULT
--- OUTSIDE RECORDS SUMMARY | 2024-10-08 09:55 | XMS_ITS | Encounter Summary ---
Author Organization [employer] Address [address] [place] [address] Care Team Providers Care Rehab Nursing Tech Name Role Phone Unavailable Primary Care Provider Unavailabl e Reason for Visit * Reason Onset Date Comments Appointment 09/11/2022 Encounter Details Date Type Department Care Team (Late st Contact Info) Description 09/11/2022 Telephone [facility] ADULT DENTAL [address] [place], [place] [phone] Rich Mancera DDS [address] [place], [place] [phone] Appointment Social History Tobacco Use Types Packs/Day [...]
--- OUTSIDE RECORDS SUMMARY | 2024-10-08 09:55 | XMS_ITS | Encounter Summary ---
Author Organization [employer] Address [address] [place] [address] Care Team Providers Care Sales Applications Engineer Name Role Phone Unavailable Primary Care Provider Unavailabl e Encounter Details Date Type Department Care Team (Latest Contact Info) Description 04/29/2019 Abstract [facility] CONVERSIONS Dental, Provider, DDS Social History [...]
--- OUTSIDE RECORDS SUMMARY | 2024-10-08 09:55 | XMS_ITS | Encounter Summary ---
Author Organization [employer] Address [address] [facility] [address] [place] [address] Care Team Providers Care Licensed Architect Name Role Phone Unavailable Primary Care Provider Unavailabl e Reason for Visit * Reason Onset Date Comments medication 08/27/2023 Encounter Details Date Type Department Care Team (Late st Contact Info) Description 08/27/2023 Telephone [facility] ADULT DENTAL [address] [place] [address] Alisha Rodas DDS [address] [place], [place] [phone] medication Social History Tobacco Use Types Packs/Day [...]
== END 2024-10-08 10:33 | disposition home or self-care (01) ==
LOC: HO.ENCR 09:20
PROVIDERS: PCP Internal Medicine; Visit Provider Nurse Practitioner Adult Health
DX: E11.9 Type 2 diabetes mellitus without complications (principal)

== ENCOUNTER 2024-10-09 12:09 | Outpatient (REF) | payer MEDICARE, MEDICAID, SELFPAY ==
[2024-07-15 09:17] VITALS: BP 128/60; BMI 27.1
--- NOTE | ~2024-10-09 | XR_ITS ---
EXAMINATION: XR CHEST CLINICAL INFORMATION: DYSPNEA, VIRAL URI COMPARISON: 10/05/2024. TECHNIQUE: 2 views of the chest were obtained. FINDINGS: The cardiac, hilar, and mediastinal contours are normal. The lungs are clear bilaterally. There is no pneumothorax or pleural effusion. There is no focal osseous or soft tissue abnormality. Surgical anchor right humeral head. Cholecystectomy clips noted. XR/XR chest 2V IMPRESSION: No active pulmonary disease. Electronically signed by: Bj Molina MD 10/09/2024 12:58 PM EDT
== END 2024-10-09 12:10 | disposition home or self-care (01) ==
LOC: HO.XRAY 12:09
PROVIDERS: PCP Internal Medicine
DX: R06.00 Dyspnea, unspecified (principal); J06.9 Acute upper respiratory infection, unspecified
CPT/HCPCS: 71046

== ENCOUNTER → 2024-10-09 12:14 | Outpatient (BNV) | payer MEDICARE, MEDICAID, SELFPAY ==
[2024-07-15 09:17] VITALS: BP 128/60; BMI 27.1
== END ==
PROVIDERS: PCP Internal Medicine; Visit Provider Radiology Diagnostic Radiology
DX: R06.00 Dyspnea, unspecified (principal)
CPT/HCPCS: 71046

== ENCOUNTER 2024-10-22 08:12 | Outpatient (AMB) | payer MEDICARE, MEDICAID, SELFPAY ==
[2024-07-15 09:17] VITALS: BP 128/60; BMI 27.1
--- OUTSIDE RECORDS SUMMARY | 2024-10-22 08:16 | XMS_ITS | Encounter Summary ---
Author Organization [employer] Address [address] [place] [address] Care Team Providers Care Knowledge Management Advisor Name Role Phone Unavailable Primary Care Provider Unavailabl e Reason for Visit * Reason Onset Date Comments Appointment 09/11/2022 Encounter Details Date Type Department Care Team (Late st Contact Info) Description 09/11/2022 Telephone [facility] ADULT DENTAL [address] [place], [place] [phone] Rich Mancera DDS [address] [place], [place] [phone] Appointment Social History Tobacco Use Types Packs/Day [...]
[2024-10-22 08:19] VITALS: BP 120/60; PULSE 80; O2SAT 98; BMI 25.1
--- NOTE | 2024-10-22 08:19 | A.OFFVIS_ITS ---
Vital Signs 10/22/24 08:19 Height 5 ft 2 in Weight 137 lb 2.04 oz BMI 25.1 BP 120/60 Blood Pressure Location Lt brachial Position Sitting Pulse 80 Pulse Source Pulse Oximeter Pulse Oximetry (%) 98 Oxygen Delivery Method Room Air Intake Visit Reasons: hand pain injection Intake Note: Patient presents for hand pain injection. Allergies duloxetine [From CYMBALTA] Allergy (Intermediate, Verified 10/22/24 08:21) SHAKINESS HPI Comments Details: Patient is a 64-year-old female with diabetes, hypertension, hyperlipidemia complicated by coronary artery disease status post cardiac catheterization with stenting, GERD, autoimmune hepatitis, lupus and polyarticular osteoarthritis here today for follow up Interval History: Patient last seen 09/21/2024 with me. At that time she was here for an urgent visit for bilateral hand swelling that responded to prednisone. Upon examination the pain had improved on the short course of prednisolone and no changes were made to her medication. Today she is here for an urgent visit for left hand pain. Patient is complaining of painful left ring finger trigger finger. Rheumatologic History: dx ( autoimmune hepatitis, arthralgias ++ dsDNA intermittently low C3 and C4 +++ACL IgM ++ASMA) Current Rheumatology Medication(s): Azathioprine 75 mg daily Hydroxychloroquine Prednisone 10 mg twice a day [facility] Medical History Trigger finger, left ring finger Cirrhosis Antiphospholipid antibody syndrome Leg pain, right Abdominal bloating Lupus Arthritis POOL (dyspnea on exertion) Gallstones Cirrhosis Nonalcoholic steatohepatitis (SHARMA) Autoimmune hepatitis High blood pressure Fibromyalgia Diabetes Surgical History History of esophagogastroduodenoscopy (EGD) History of heart artery stent Hx of cholecystectomy Hx of endoscopy History of colonoscopy History of shoulder surgery History of cataract surgery (2010) History of repair of right rotator cuff (08/2011) History of cervical discectomy (07/2009) History of carpal tunnel release Family History Father History of diabetes mellitus, type II History of hypertension History of heart bypass surgery Mother History of diabetes mellitus, type II Brother History of gout Paternal Uncle Cancer Paternal Aunt Cancer Social History Household Members: None Housing: Apartment Are you a primary acute care clinical nurse specialist to a significant other at home: No 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 have visiting nurse or other home services: No Alcohol intake: never Patient Tobacco Use Status: Never used Tobacco service: No Current occupational status: disabled Review of Systems Const Details: Review of Systems Constitutional: Denies fever, chills, weight loss ENT: Denies vision changes, eye pain or eye redness, dental caries, dry mouth GI: Denies nausea, vomiting, diarrhea, abdominal pain, change in BM Pulm: Denies SOB, POOL, hemoptysis, wheezing Cards: Denies chest pain, palpitations Skin: Denies Raynaud's, rash, nail changes, photosensitivity, LASER SYSTEMS ENGINEER: Denies headaches, weakness, paresthesias, recurrent falls MSK: as per HPI All other systems reviewed and are unremarkable except noted above Physical Exam Vital Signs: Last Vital Signs Pulse 80 10/22/24 08:19 BP 120/60 10/22/24 08:19 Pulse Ox 98 10/22/24 08:19 Oxygen Delivery Method Room Air 10/22/24 08:19 BMI result Body Mass Index 25.1 MSK Tenderness to palpation of the A1 codi of the left 4th ring finger Office Procedures AMB Joint Injection/Aspiration Joint Injection/Aspiration Details: Procedure was explained to the patient and consent was obtained. ? The area of interest was identified and confirmed with patient. ?This was subsequently cleaned with chlorhexidine x3. ? The area was then anesthetized using ethyl chloride spray. 20 mg Kenalog with 0.1 cc 1% lidocaine was injected without issue. ?Minimal to no bleeding. ?Patient tolerated procedure. Primary Site: left trigger finger Prep: site was prepped using aseptic technique and ethochloride spray was applied Injected: 20 mg of, Kenalog and 1% plain lidocaine Procedure: The patient tolerated the procedure well Coding 57147 - Bicipital Groove Injection Procedure code (CPT) selection complete Office Meds lidocaine (PF) 10 mg/mL (1 %) injection solution Performing Provider: Marcelina Bourne MD [place] [facility] Administered by: Marcelina Bourne MD on 10/22/24 08:49 Dose Route Admin Location Dispensed Lot Number Expiration Date [facility] Pr Manager 0.1 mL Infiltration left ring finger 2 mL [id number] 07/25/26 52037-767-97 [facility] Kenalog 40 mg/mL suspension for injection Performing Provider: Marcelina Bourne MD Performing [place] [facility] Administered by: Marcelina oBurne MD on 10/22/24 08:49 Dose Route Admin Location Dispensed Lot Number Expiration Date NDC Pr Manager 20 mg Tendon Sheath Inj. [id number] 1 mL [id number] 11/24/25 [address]-7 [employer] Results Reviewed Results Reviewed: Laboratory Tests 05/28/24 09/17/24 10:52 10:17 WBC 4.8 RBC 4.52 Hgb 12.5 Hct 39.9 Plt Count 195 ESR 62 H Sodium 135 Potassium 4.2 Chloride 100 Carbon Dioxide 28 BUN 10 Creatinine 0.70 Uric Acid 4.2 Calcium 9.8 D Total Bilirubin 0.4 AST 46 H ALT 31 Alkaline Phosphatase 163 H C-Reactive Protein 0.74 H Total Protein 9.3 H Albumin 4.0 Double Strand DNA Ab 75 H 61 H Complement C3 168 116 Complement C4 15 9 L Assessment & Plan Assessment & Plan (1) Trigger finger, left ring finger: Code(s): M65.342 - Trigger finger, left ring finger Category: Medical Plan: #Left ring finger trigger finger Patient is a 64-year-old female with autoimmune hepatitis complicated by cirrhosis and presumed lupus here today for urgent visit for left ring finger trigger finger. Received a steroid injection today Plan I spent 20 minutes reviewing the record and labs, taking a history, examining the patient, discussing the treatment plan, ordering diagnostic work up and documenting in the medical record Orders: Orders AMB Joint Injection/Aspiration Today M65.342 - Trigger finger, left ring finger Medications: New lidocaine (PF) 0.1 mL Infiltration ONCE 2 mL 0RF M65.342 - Trigger finger, left ring finger Kenalog (triamcinolone acetonide) 20 mg (0.5 mL) Tendon Sheath Inj. ONCE 0.5 mL 0RF NS M65.342 - Trigger finger, left ring finger Coding Level of Care Code Est Pt Level 3 (57088) Diagnoses Trigger finger, left ring finger M65.342 CPT Codes Coding - Joint 1: 61823 - Bicipital Groove Injection ([id number])
== END 2024-10-22 08:47 | disposition home or self-care (01) ==
LOC: HO.RHE 08:13
PROVIDERS: PCP Internal Medicine; Visit Provider Student in an Organized Health Care Education/Training Program
DX: M65.342 Trigger finger, left ring finger (principal)
CPT/HCPCS: 20550; 99213

== ENCOUNTER → 2024-10-22 08:12 | Outpatient (BNVA) | payer MEDICARE, MEDICAID, SELFPAY ==
[2024-07-15 09:17] VITALS: BP 128/60; BMI 27.1
== END ==
PROVIDERS: PCP Internal Medicine; Visit Provider Student in an Organized Health Care Education/Training Program
DX: M65.342 Trigger finger, left ring finger (principal); M15.9 Polyosteoarthritis, unspecified
CPT/HCPCS: 20550; 99212; J3300

== ENCOUNTER 2024-10-28 09:13 | Outpatient (AMB) | payer MEDICARE, MEDICAID, SELFPAY ==
[2024-07-15 09:17] VITALS: BP 128/60; BMI 27.1
--- NOTE | 2024-10-28 07:05 | A.OFFVIS_ITS ---
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 Last A1C 7.8% 07/24/24 up from 7.1%. She had been on steroids shortly before the A1c was checked. At her last visit on 10/08/2024 glipizide and Lantus were discontinued and Tresiba was started along with once daily Humalog. Initially diagnosed with T2DM in 2008. Saw endocrinology in the past and was discharged due to normal A1C Was initially started on treatment with: metformin, januvia was ineffective glipizide was causing afternoon lows GLP 1 agonist not recommended due to tight pylorus and chronic acid reflux symptoms. She did complain of abdominal pain for several days in the right upper quadrant which has since resolved and felt she fell to his attributed to drink extra carbonated beverages. No further recurrent and she does have follow up with GI. Current regimen: Tresiba 10 units Humalog 4 units with breakfast Jardiance 25 mg metformin ER 1000mg bid 172 14 day continuous glucose monitor report reviewed Glucose Managment indicator 7.4 % TIme in ranges: 10 % very high (above 250) 24 % high ?(181-250) 66 % in range ?(70-180] 0 % low (69-55) 0 % ?very low (below 54) 32.4 Standard Deviation Interpretation: Overnight readings in better range from last visit. Some postprandial highs after lunch Treats lows with oj, soda doesn't recheck afterward Most recent A1C 7.5% 10/08/24 7.8% on 07/14/24 up from previous 7.1% 03/19/25 Family history of T2DM: mother, father, aunts Denies retinopathy: eyes checked yearly, 09/2024 Has neuropathy, some burning pain does not see podiatry No nephropathy, on low-dose LESLEE inhibitor 07/14/2024 eGFR>60 10/2023 microalbumin less than 5 Has HLD, on statin. Last LDL 67 as measured on 07/14/2024. Has CAD stent 2022 Sees cardiology every 6 months Followed by Rheumatology for lupus Diet: breakfast skips first time she eats is at 12 pm 2 eggs, bower, hash browns or turkish toast with bananas doesn't eat anything or supper or may have small sandwich Weight: stable lost several pounds over the last year previously had been 150 Recently seen by diabetes educato [facility] Medical History Trigger finger, left ring finger Cirrhosis Antiphospholipid antibody syndrome Leg pain, right Abdominal bloating Lupus Arthritis POOL (dyspnea on exertion) Gallstones Cirrhosis Nonalcoholic steatohepatitis (SHARMA) Autoimmune hepatitis High blood pressure Fibromyalgia Diabetes Surgical History History of esophagogastroduodenoscopy (EGD) History of heart artery stent Hx of cholecystectomy Hx of endoscopy History of colonoscopy History of shoulder surgery History of cataract surgery (2010) History of repair of right rotator cuff (08/2011) History of cervical discectomy (07/2009) History of carpal tunnel release Family History Father History of diabetes mellitus, type II History of hypertension History of heart bypass surgery Mother History of diabetes mellitus, type II Brother History of gout Paternal Uncle Cancer Paternal Aunt Cancer Social History Household Members: None Housing: Apartment Are you a primary healthcare specialist to a significant other at home: No 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 have visiting nurse or other home services: No Alcohol intake: never Patient Tobacco Use Status: Never used Tobacco service: No Current occupational status: disabled Physical Exam Vital Signs: Last Vital Signs Pulse 80 10/28/24 09:17 BP 126/70 10/28/24 09:17 Pulse Ox 98 10/28/24 09:17 Oxygen Delivery Method Room Air 10/28/24 09:17 BMI result Body Mass Index 24.6 Const Other: Absence of Cushingoid features. Absence of acromegalic features. Neck exam reveals nl size thyroid about 15 gms. No thyroid nodules palpable. Heart S1 S2, Reg R/R. No M/R G. Skin exam reveals absence of vitiligo or acanthosis nigricans. No edema Visual exam of foot performed. No ulcerations or open lesions. No inter digit maceration or fissuring. + onychomycosis: Left great toe only, no callouses. Sensation intact to monofilament exam. Vibratory sensation is normal with 128 Hz tuning fork. Pulses positive distally Results Reviewed Results Reviewed: Laboratory Last Values Glucose (Clinic) 157 mg/dL (60-115) H 10/28/24 09:26 Assessment & Plan Assessment & Plan (1) Diabetes: Comment: NIDDM Code(s): E11.9 - Type 2 diabetes mellitus without complications Category: Medical Plan: 64-year-old type 2 diabetic with neuropathy with improving glycemic control. She continues to have postprandial elevation for her brunch. She will continue Jardiance and metformin Tresiba 10 units daily Increase NovoLog to 8 units for breakfast She again asked about starting a GLP 1 agonist weekly. She has a very tight pylorus and chronic GERD and would not recommend this. She will schedule her next visit in 2 months to discuss this with the Dr. Magaña. The patient had an opportunity to ask questions regarding treatment plan. The patient expressed understanding and agreement with the above treatment plan. The patient is aware they should contact our office by phone for worsening glucose readings or for any low blood sugars which may warrant a change in diabetes medication. Compliance is encouraged with medications and any followup testing/consults which may have been ordered. Any recurrence of abdominal pain seek medical care. Orders: Orders AMB Glucose Monitoring Today E11.9 - Type 2 diabetes mellitus without complications Medications: Changed From insulin aspart U-100 (Novolog FlexPen U-100 Insulin aspart) with breakfast 4 units (0.04 mL) subcut DAILY 30 days 3 mL 6RF To insulin aspart U-100 (Novolog FlexPen U-100 Insulin aspart) with breakfast 8 units (0.08 mL) subcut DAILY 3 mL 6RF 30 days Discontinued Lantus Solostar U-100 Insulin (insulin glargine) Discontinued Reason: Doctor's Order 8 units (0.08 mL) subcut QPM 30 days 3 mL 3RF NS Coding Level of Care Code Est Pt Level 4 (24418) Complex EM visit Add On G2211 Diagnoses Diabetes E11.9 Time Spent (min) 30 Comment Time spent reviewing labs/provider notes, face to face, chart doc
[2024-10-28 09:17] VITALS: BP 126/70; PULSE 80; O2SAT 98; BMI 24.6
[2024-10-28 09:33] LABS: Glucose, Whole Blood 157 mg/dL (60-115)
--- OUTSIDE RECORDS SUMMARY | 2024-10-28 09:34 | XMS_ITS | Encounter Summary ---
Author Organization [employer] Address [address] [place] [address] Care Team Providers Care Rim Turning Machine Operator Name Role Phone Unavailable Primary Care Provider Unavailabl e Reason for Visit * Reason Onset Date Comments Appointment 09/11/2022 Encounter Details Date Type Department Care Team (Late st Contact Info) Description 09/11/2022 Telephone [facility] [address], [place] [phone] Rich Mancera DDS [address], [place] [phone] Appointment Social History Tobacco Use Types Packs/Day [...]
== END 2024-10-28 09:44 | disposition home or self-care (01) ==
PROVIDERS: PCP Internal Medicine; Visit Provider Nurse Practitioner Adult Health
DX: E11.9 Type 2 diabetes mellitus without complications (principal)
CPT/HCPCS: 99214; G2211

== ENCOUNTER → 2024-10-28 09:13 | Outpatient (BNVA) | payer MEDICARE, MEDICAID, SELFPAY ==
[2024-07-15 09:17] VITALS: BP 128/60; BMI 27.1
== END ==
PROVIDERS: PCP Internal Medicine; Visit Provider Nurse Practitioner Adult Health
DX: E11.9 Type 2 diabetes mellitus without complications (principal)
CPT/HCPCS: 82947; 99212

== ENCOUNTER 2024-11-02 09:41 | Outpatient (AMB) | payer MEDICARE, MEDICAID, SELFPAY ==
[2024-07-15 09:17] VITALS: BP 128/60; BMI 27.1
--- NOTE | 2024-11-02 10:04 | A.OFFVIS_ITS ---
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 Experimental Name: Candie [facility] [place] Accompanied by: Self / Same As Patient Allergies duloxetine [From CYMBALTA] Allergy (Intermediate, Verified 10/28/24 09:17) JUVE WILL Comprehensive Diabetes Asmnt Most Recent Diabetes Results: 2 Hemoglobin A1c 6.9 % 01/15/20 Microalb/Creat Ratio TNP 11/06/23 Cholesterol 129 mg/dL (<200) 07/14/24 HDL Cholesterol 41 mg/dL (>40) 07/14/24 Triglycerides 108 mg/dL (<150) 07/14/24 Creatinine 0.67 mg/dL (0.5-1.4) 10/05/24 Blood Urea Nitrogen 10 mg/dL (9-16) 10/05/24 Sodium 138 mmol/L (135-145) 10/05/24 Potassium 3.6 mmol/L (3.3-5.1) 10/05/24 Chloride 107 mmol/L (96-108) 10/05/24 Carbon Dioxide 23 mmol/L (22-29) 10/05/24 Calcium 9.2 mg/dL (8.4-10.2) 10/05/24 AST 55 U/L (5-31) H 10/05/24 ALT 34 U/L (0-31) H 10/05/24 Total Protein 9.3 g/dL (6.5-8.0) H 10/05/24 Albumin 3.9 g/dL (3.5-5.0) 10/05/24 [facility] Medical History Trigger finger, left ring finger Cirrhosis Antiphospholipid antibody syndrome Leg pain, right Abdominal bloating Lupus Arthritis POOL (dyspnea on exertion) Gallstones Cirrhosis Nonalcoholic steatohepatitis (SHARMA) Autoimmune hepatitis High blood pressure Fibromyalgia Diabetes Surgical History History of esophagogastroduodenoscopy (EGD) History of heart artery stent Hx of cholecystectomy Hx of endoscopy History of colonoscopy History of shoulder surgery History of cataract surgery (2010) History of repair of right rotator cuff (08/2011) History of cervical discectomy (07/2009) History of carpal tunnel release Family History Father History of diabetes mellitus, type II History of hypertension History of heart bypass surgery Mother History of diabetes mellitus, type II Brother History of gout Paternal Uncle Cancer Paternal Aunt Cancer Social History Household Members: None Housing: Apartment Are you a primary respiratory care instructor to a significant other at home: No 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 have visiting nurse or other home services: No Alcohol intake: never Patient Tobacco Use Status: Never used Tobacco service: No Current occupational status: disabled Assessment & Plan Assessment & Plan (1) Diabetes: Comment: NIDDM Code(s): E11.9 - Type 2 diabetes mellitus without complications Plan: Learning objectives: The patient was provided with verbal and written education on the following topics as outlined below. The patient met all learning objectives and was able to verbalize understanding and provide teach back of education topics discussed . The patient was provided with the opportunity to ask questions and all questions were answered. Patient Assessment Assess patient education level/literacy/barriers, patient's last A1c on 10/08/2024 7.5% Patient reports she is taking Tresiba 10 units daily, at last visit patient was switched from Lantus to Tresiba. Patient has not been experiencing hypoglycemia since change. NovoLog 8 units t.i.d. Metformin 1000 mg b.i.d. Jardiance 25 mg daily Patient questions/concerns, What is Diabetes? Pathophysiology How the body produces and uses insulin Identify type of DM Risk factors Signs of Diabetes Brief overview of Diabetes Management Monitoring blood sugar Following a meal plan Regular exercise Maintaining a healthy weight Taking medication as needed Members of the care team (PCP, RN, MA, RD, CDE, registered nurse behavioral health) Blood glucose monitoring When/how often to test Target blood sugar ranges Introduction to Nutrition Importance of healthy diet in managing DM Diet is personalized to individual preference Review patient?s regular diet/food preferences Who prepares meals/does food shopping/ Dining out?/ Barriers? How diet effects glucose Eating 3 balanced meals a day with small, healthy snacks between meals Review food groups Carbohydrates: What is a carbohydrate/Which food/food groups are considered carbohydrates Effect of carbohydrates on blood glucose Portion sizes Reading food labels Basic carb counting (if applicable per nursing assessment) Plate method Meal planning Recommendations: Follow plate method, consistent carbs and read nutritional labels. Smart Goal: Patient will keep carbohydrate portions at mealtime to 30-45 g Educational Materials: The patient was provided with the following written educational materials: Planning Healthy Meals Handout Patient Response to instructions: Comprehension of Instructions: Fair Readiness to make changes: Contemplation How confident they feel about making changes: Poor Portions of this note were created using voice recognition software, please excuse any words or phrases that may have been misinterpreted. Patient Instructions: Incluir actividad diaria regular. ADA recomienda 30 minutos de ejercicio 5 d?as a la semana. P?rdida de peso, hable con el PCP o el cardi?logo antes de comenzar un nuevo plan. Mida el nivel de az?car en la emma seg?n las indicaciones; Ayuno y comida m?s lizandro de 2hpp. Observe las tendencias en los resultados. Utilice los resultados y eval?e c?mo los alimentos, la actividad f?jennifer y los medicamentos afectan los resultados de az?car en la emma. Lleve el gluc?metro o CGM a la pr?xima visita. Conocer los medicamentos para la diabetes, campos acci?n, los efectos secundarios, la eficacia, la toxicidad, la dosis prescrita, el momento y la frecuencia de administraci?n apropiados, el efecto de las dosis olvidadas y retrasadas y las instrucciones de almacenamiento, viaje y seguridad. T?cnicas de resoluci?n de problemas para el seguimiento de episodios de hipo/hiperglucemia y tratamientos. Reducir los comportamientos de reducci?n de riesgos, dejar de fumar, ex?menes regulares de ojos, pies y dentales. Coding Level of Care Code Est Pt Level 1 (57780) Diagnoses Diabetes E11.9
--- OUTSIDE RECORDS SUMMARY | 2024-11-02 10:22 | XMS_ITS | Encounter Summary ---
Author Organization [employer] Address [address] [place] [address] Care Team Providers Care Card Cleaner Name Role Phone Unavailable Primary Care Provider Unavailabl e Reason for Visit * Reason Onset Date Comments Appointment 09/11/2022 Encounter Details Date Type Department Care Team (Late st Contact Info) Description 09/11/2022 Telephone [facility] [address], [place] [phone] Rich Mancera DDS [address], [place] [phone] Appointment Social History Tobacco Use Types Packs/Day [...]
== END 2024-11-02 10:37 | disposition home or self-care (01) ==
LOC: HO.ENCR 09:41
PROVIDERS: PCP Internal Medicine; Visit Provider Registered Nurse Diabetes Educator
DX: E11.9 Type 2 diabetes mellitus without complications (principal)

== ENCOUNTER → 2024-11-02 09:41 | Outpatient (BNVA) | payer MEDICARE, MEDICAID, SELFPAY ==
[2024-07-15 09:17] VITALS: BP 128/60; BMI 27.1
== END ==
PROVIDERS: PCP Internal Medicine; Visit Provider Registered Nurse Diabetes Educator
DX: E11.9 Type 2 diabetes mellitus without complications (principal)
CPT/HCPCS: 99211

== ENCOUNTER 2024-11-16 11:29 | Outpatient (AMB) | payer MEDICARE, MEDICAID, SELFPAY ==
[2024-07-15 09:17] VITALS: BP 128/60; BMI 27.1
--- NOTE | 2024-11-16 11:34 | MHC.OFFVIS ---
Vital Signs 11/16/24 11:36 Height 5 ft 2 in Weight 136 lb 10.986 oz BMI 25.0 BP 143/72 H Blood Pressure Location Rt brachial Position Sitting Pulse 80 Intake Visit Reasons: f/u EGD Intake Note: CC: Pains in the throat - reflux - choking with her saliva. Feels like there is something still stuck in the throat. Allergies duloxetine (From CYMBALTA) Allergy (Intermediate, Verified 10/28/24 09:17) SHAKINESS HPI HPI f/u EGD: Details: 64 yr old f here for f/u for AIH RECAP- index visit 04/2019 she was diagnosed with AIH and had been on imuran for 2 yrs (50 mg) but was then changed to 6 tabs MTX weekly and folic acid daily, after imuran stopped but this was recommenced and the MTX stopped due to SE and rising LFT she was dx based on lab work per her report she had liver bx ordered by her ID specialist (she was seeing for assessment of hep c but she doesn;t have it) she had pain since liver bx (02/2019) but does admit maybe it was there before no vomiting but occ nausea sometimes has constipation, which exacerbates her abdo pain mentioned above--stool was hard, and she has to push appetite is not so good, can't say why weight was going down she had been having constipation, on oxycodone 10 mg daily on prednisone for lupus she was given movantik for opiate induced constipation and pentoxyfilin for possible SHARMA she was referred to Dr Desai for gallstones causing abdo pain, and had cholecystectomy 05/2020 h pylori f/u testing has been negative TESTS: she has abn AST/ALT on and off for last several years on review of [employer] cbc 02/2019--normal LFT: 12/2018--normal, LFT 06/25-2019 mild AST, ALT elevation LFT: 09/2019--AST36, ALT 42, alk phos--103, bili 0.4 LFT- 11/2019- bili-nml, AST-37, ALT-39, alk phos- 92 LFT 12/2019-- AST-42,ALT,40, GGT 109, alk phos--nml, bili 0.6 HEAVEN 1:1280 ds DNA--pos LFT- 04/19/2020--AST94, ALT 87, alk phos 148, bili 0.5 LFT 08/2020--nml, protein high, Ig levels high, SPEP neg LFT 12/16-- bili 5, AST 96, ALT 239 ( Imuran had been stopped due to v high levels of 6 TG and ^ MMP -->[id number]) 6 TG <50, 6 MMp 1516 LFT 11/06/23 bili-0.4, AST 44, ALT 27, alk florinda 176, (INR from 08/17--1.0) LFT 06/20 - AST 55, ALT 57, alk phos 177, (INR 1 from 02/17) vitamin A level had been low--improved with replacement BIOPSY: liver bx with grade 1, stage 4 cirrhosis, mixed macro and microvesicular steatosis, and background steatohepatitis IMAGING: MRI 05/18-- adenitis, cirrhosis, no mass lesions, few LNs Upper GI series: moderate GERD< nml stomach and duodenum US 11/2021- cirrhosis, no mass GES- 2021- nml EGD/colonoscopy- 04/2021-- esophagitis, gastritis, h pylori noted, x 1Ta removed, MRI 03/2021-- nodular liver, venous collaterals, MRI 08/2020--stable LN, liver with borderline steatosis, no mass lesions MRI 05/2020--upper abdo LN--stable, cirrhosis of liver noted CT 12/2019--liver calcifications, retroperitoneal LNs, gallstones u/s 10/2019--gallstones, adenomyomatosis, F3-4 elastography u/s 11/2018--coarse liver, no masses, CT 2017--mildly enalrged LN, hepatic granulomas, central mesenteric stranding EGD 04/2019--reflux, no varices EGD 10/17: no varices, patulous LEs, possible gastroparesis -balloon dilation of UES CT 06/20- stable cirrhosis, stable lymphadenopathy, no masses EGD 07/21 Impression/Findings: gastritis patulous GEJ reduced gastric movement and tight pylorus INTERIM: she is still having issues with regurgitation and reflux reviewed EGD findings she feels lansoprazole is not wroking she is on insulin as well she can have choking sometimes and tight with sputum EXAM: GENERAL: The patient is well developed and nontoxic. VITAL SIGNS:see workflow HEENT: Nonicteric sclerae, PERRLA, EOMI. Oropharynx clear. Moist mucous membranes. Conjunctivae appear well perfused. No thyroid mass. CHEST: Chest wall is nontender. HEART: Regular rate and rhythm without murmurs. LUNGS: Clear to auscultation bilaterally. ABDOMEN: Soft, positive bowel sounds, mild tender RUQ, no organomegaly, lipoma felt SKIN: No rash, no excessive bruising, petechiae, or purpura. NEUROLOGIC: Cranial nerves II-XII intact without motor/sensory deficit. joints: no swelling Assessments 1. 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 Gallstones AND ADENOMYOMATOSIS, s/p cholecystectomy by Dr Desai- 3. constipation-opiate related with bloating, maybe causing gastroparesis 4. weight loss, possibly from uncontrolled inflammation and SLE 5. epigastric tenderness and nausea, ?gastritis PLAN: 1/ will add ursodiol to see if helps along with imuran 2/ US liver 3/ she might benefit from rezdiffra or ozempic, will consider depending on liver tests 4/ might never fully normalize LFT, may have to accept some elevation, will refer for transplant eval if MELD >15 5/ change to esomeprazoel and see if helps otherwise rept EGD with dilation [facility] Medical History Trigger finger, left ring finger Cirrhosis Antiphospholipid antibody syndrome Leg pain, right Abdominal bloating Lupus Arthritis POOL (dyspnea on exertion) Gallstones Cirrhosis Nonalcoholic steatohepatitis (SHARMA) Autoimmune hepatitis High blood pressure Fibromyalgia Diabetes Surgical History History of esophagogastroduodenoscopy (EGD) History of heart artery stent Hx of cholecystectomy Hx of endoscopy History of colonoscopy History of shoulder surgery History of cataract surgery (2010) History of repair of right rotator cuff (08/2011) History of cervical discectomy (07/2009) History of carpal tunnel release Family History Father History of diabetes mellitus, type II History of hypertension History of heart bypass surgery Mother History of diabetes mellitus, type II Brother History of gout Paternal Uncle Cancer Paternal Aunt Cancer Social History Household Members: None Housing: Apartment Are you a primary field care coordinator to a significant other at home: No 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 have visiting nurse or other home services: No Alcohol intake: never Patient Tobacco Use Status: Never used Tobacco service: No Current occupational status: disabled Physical Exam Vital Signs: Last Vital Signs Pulse 80 11/16/24 11:36 BP 143/72 H 11/16/24 11:36 BMI result Body Mass Index 25.0 Assessment & Plan Assessment & Plan (1) Chronic autoimmune hepatitis: Comment: liver biopsy 2018 showing inflammation and cirrhosis. Positive antismooth muscle antibody. Treated with azathioprine. Code(s): K75.4 - Autoimmune hepatitis Category: Medical Plan: as abvoe Orders: Orders US abdomen manrique w elastography Today K74.60 - Unspecified cirrhosis of liver, K75.81 - Nonalcoholic steatohepatitis (SHARMA) Medications: New ursodiol 500 mg PO BID 60 tabs 2RF esomeprazole magnesium 40 mg PO BID 60 caps 3RF Discontinued prednisone Discontinued Reason: Doctor's Order 20 mg PO DAILY 5 tabs 0RF lansoprazole Discontinued Reason: Doctor's Order 30 mg PO BID 30 days 60 caps 2RF K21.9 - Gastro-esophageal reflux disease without esophagitis Coding Level of Care Code Est Pt Level 4 (95962) Diagnoses Chronic autoimmune hepatitis K75.4
[2024-11-16 11:36] VITALS: BP 143/72; PULSE 80; BMI 25.0
== END 2024-11-16 12:10 | disposition home or self-care (01) ==
LOC: HO.HGI 11:30
PROVIDERS: PCP Internal Medicine; Visit Provider Internal Medicine Gastroenterology
DX: K75.4 Autoimmune hepatitis (principal)
CPT/HCPCS: 99214

== ENCOUNTER → 2024-11-16 11:29 | Outpatient (BNVA) | payer MEDICARE, MEDICAID, SELFPAY ==
[2024-07-15 09:17] VITALS: BP 128/60; BMI 27.1
== END ==
PROVIDERS: PCP Internal Medicine; Visit Provider Internal Medicine Gastroenterology
DX: K75.4 Autoimmune hepatitis (principal)
CPT/HCPCS: 99212

== ENCOUNTER 2024-11-24 10:13 | Outpatient (REF) | payer MEDICARE, MEDICAID, SELFPAY ==
[2024-07-15 09:17] VITALS: BP 128/60; BMI 27.1
--- OUTSIDE RECORDS SUMMARY | 2024-11-24 11:20 | XMS_ITS | Encounter Summary ---
Author Organization [employer] Address [address] [facility] [place] [address] Care Team Providers Care Roll Press Operator Name Role Phone Unavailable Primary Care Provider Unavailabl e Reason for Visit * Reason Onset Date Comments Appointment 09/11/2022 Encounter Details Date Type Department Care Team (Late st Contact Info) Description 09/11/2022 Telephone [facility] ADULT DENTAL [address], [place] [phone] Rich Mancera DDS [address], [place] [phone] Appointment Social History Tobacco Use Types Packs/Day [...]
== END 2024-11-24 10:14 | disposition home or self-care (01) ==
LOC: HO.MAMMO 10:13
PROVIDERS: PCP Internal Medicine; Visit Provider Internal Medicine
DX: Z12.31 Encounter for screening mammogram for malignant neoplasm of breast (principal)
CPT/HCPCS: 77063; 77067

== ENCOUNTER → 2024-11-24 10:45 | Outpatient (BNV) | payer MEDICARE, MEDICAID, SELFPAY ==
[2024-07-15 09:17] VITALS: BP 128/60; BMI 27.1
== END ==
PROVIDERS: PCP Internal Medicine; Visit Provider Internal Medicine
DX: Z12.31 Encounter for screening mammogram for malignant neoplasm of breast (principal)
CPT/HCPCS: 77063; 77067

== ENCOUNTER 2025-01-11 08:45 | Outpatient (REF) | payer MEDICARE, MEDICAID, SELFPAY ==
[2024-07-15 09:17] VITALS: BP 128/60; BMI 27.1
--- NOTE | ~2025-01-11 | US_ITS ---
EXAMINATION: US ABDOMEN LIMITED WITH LIVER ELASTOGRAPHY HISTORY: K75.81 - Nonalcoholic steatohepatitis (SHARMA) TECHNIQUE: Real-time grayscale ultrasound imaging of the right upper quadrant was performed and images were reviewed. COMPARISON: Comparison is made with the prior examination dated 12/16/2021. FINDINGS: Liver: The right lobe of the liver measures 16.0 cm in size. The left lobe of the liver measures 11.8 cm in size. The liver demonstrates heterogeneous echotexture and a nodular contour, suggestive of cirrhosis. No focal mass or intrahepatic biliary ductal dilatation is identified. There is normal hepatopedal flow in the portal vein. Ultrasound elastography of the liver was performed with 10 separate measurements of the liver parenchyma with the patient in the supine position. Measurements were obtained approximately 2 cm below Keith's capsule and perpendicular to the capsule. The median shear wave velocity is 1.90 m/s (previously 1.75 m/s). The interquartile range/median (IQR/median) is 0.13. Gallbladder and biliary tree: The gallbladder is surgically absent. The common bile duct is normal in caliber measuring 5 mm. Right Kidney: The right kidney measures 11.9 cm in length. The right kidney is unremarkable, without evidence of masses, hydronephrosis, or calculi. Pancreas: The pancreatic head, neck, and body are unremarkable. The pancreatic tail is obscured by bowel gas. Abdominal aorta and inferior vena cava: The visualized portions of the abdominal aorta and inferior vena cava are normal in caliber. There is no free fluid in the right upper quadrant. US/US abdomen manrique w elastography IMPRESSION: Hepatomegaly and findings consistent with cirrhosis as seen previously. The median shear wave velocity in the liver is 1.90 m/s, corresponding to a median liver stiffness of 11.30 kPa. The IQR/median value is 0.13. This is indicative of a quality data set. Findings are indicative of a high elastography value suggestive of compensated advanced chronic liver disease. REFERENCE: Society of Radiologists in Ultrasound Liver Stiffness Thresholds (2020): LIVER STIFFNESS THRESHOLDS: *Shear wave velocity less than 1.3 m/s (Liver Stiffness equal or less than 5 kPa): High probability of being normal. *Shear wave velocity less than 1.7 m/s (Liver Stiffness less than 9 kPa): In the absence of other known clinical signs, rules out compensated advanced chronic liver disease. *Shear wave velocity between 1.7-2.1 m/s (Liver Stiffness 9-13 kPa): Suggestive of compensated advanced chronic liver disease but need further test for confirmation. *Shear wave velocity between 2.1-2.4 m/s (Liver Stiffness 13-17 kPa): Rules in compensated advanced chronic liver disease. *Shear wave velocity greater than 2.4 m/s (Liver Stiffness over 17 kPa): Suggestive of clinically significant portal hypertension. QUALITY OF DATA SET: *IQR/Median value equal or less than 0.15 implies a quality data set. *IQR/Median value over 0.15 implies a poor quality data set. SIGNIFICANT CHANGE FROM PRIOR EXAM: Significant change if liver stiffness measurement is 10% or greater from prior exam. OTHER CONSIDERATIONS: The stage of liver fibrosis may be overestimated in the setting of acute hepatitis, liver inflammation, elevated liver function tests, hepatic vascular congestion, obstructive cholestasis, non-fasting state, and infiltrative diseases such as amyloidosis and lymphoma. In some patients with NAFLD, the liver stiffness thresholds for compensated advanced chronic liver disease may be lower. In causes other than viral hepatitis and NAFLD, liver stiffness thresholds are not well established. Electronically signed by: Joe Navarro MD 01/11/2025 09:42 AM EDT
--- OUTSIDE RECORDS SUMMARY | 2025-01-11 09:08 | XMS_ITS | Encounter Summary ---
Author Organization [employer] Address [address] [facility] [address] [address] [place] [address] Care Team Providers Care Cardiac Cath Rn Name Role Phone Unavailable Primary Care Provider Unavailabl e Reason for Visit * Reason Onset Date Comments Appointment 09/11/2022 Encounter Details Date Type Department Care Team (Late st Contact Info) Description 09/11/2022 Telephone [facility] ADULT D[facility] [address], [place] [phone] Rich Mancera DDS [address], [place] [phone] Appointment Social History Tobacco Use Types Packs/Day [...]
--- OUTSIDE RECORDS SUMMARY | 2025-01-11 09:08 | XMS_ITS | Encounter Summary ---
Author Organization [facility] Address [address] [facility] [address] [place] [phone] Phone Care Team Providers Care Nitric Acid Concentrator Operator Name Role Phone Eduardo Garcia MD Unavailable [phone] Leonor Rose MD Unavailable [phone] Familia Contreras MD Unavailable [phone] Jeyson Hu MD Unavailable [phone] Jus Liu MD Unavailable [phone] Eduardo Garcia MD Primary Care Provider Joe Shah MD Unavailable [phone] Jj Desai MD Unavailable [phone] Reason for Visit * Reason Onset Date Comments Follow-up 10/08/2024 Encounter Details Date Type Department Care Team (Late st Contact Info) Description 10/08/2024 Telephone [facility] Internal Medicine [address] [place], [place] [phone] Eduardo Garcia MD [address] [place], [place] [phone] [email or web address] Follow-up Social History Tobacco Use Types Packs/Day Years Used Date Smoking Tobacco: Never Smokeless Tobacco: Never Alcohol Use Standard Drinks/Week Comments No 0 (1 standard drink = 0.6 oz pur e alcohol) Child or Family Care Answer Date Record ed Do you have problems with on e of the following making it difficult for you to work, study, or receive health care? No 02/24/2024 Education Answer Date Recorded Are you interested in help w ith more adult education (for example, completing high school, GED, job training, learning the Hungarian language, technical skills, or developing parenting skills)? No 02/24/2024 Are you concerned about learning? Not on file 02/24/2024 No 02/24/2024 Yes 02/24/2024 Food Answer Date Recorded Within the past 6 months we worried whether our food would run out before we got money to buy more. I choose not to answer 02/24/2024 Within the past 6 months the food we bought just didn't last and we didn't have enough money to get more. I choose not to answer 02/24/2024 Residential Stability Answer Date Recor ded What is your housing situation today? I have fatou robles 02/24/2024 How many times have you move d in the past 12 months? Zero (I did not move) 02/24/2024 Paying for Meds Answer Date Recorded Do you have trouble paying for medicines? No 02/24/2024 Paying Utility Bills Answer Date Record ed Do you have trouble paying your heating or elect ricity bill? No 02/24/2024 Transportation Answer Date Recorded Has the lack of transportati on kept you from medical appointments or from getting medications? No 02/24/2024 Digital Access Answer Date Recorded No 02/24/2024 Yes 02/24/2024 Do you have reliable internet access at home? Ye s 02/24/2024 Do you have a device (e.g., phone, tablet, computer) with a working camera? Yes 02/24/2024 Intimate Partner Violence Answer Date R ecorded Denied Basic Needs Not on file 02/24/2024 In the past 12 months have y ou been in a relationship with a person who hurts, threatens, or tries to control you? No 02/24/2024 Worried food would run out Not on file 02/23 In the past 12 months have y ou been in a relationship with a person who hurts, threatens, or tries to control you? No 02/24/2024 Comments No Sex and Gender Information Value Date Recorded Sex Assigned at Not on file Legal Sex Female 9:47 PM EDT Gender Identity Not on file Sexual Orientation Not on file documented as of this encounter Progress Notes * Nina Ojeda - 10/08/2024 2:11 PM EDT Spoke to patient wanted morning appt for ER Follow up scheduled w/Renetta Enriquez for 10-09-24 at 11:20am * Brandan Cary - 10/08/2024 1:42 PM EDT Emergency Department (ED, ER) Appointment Booking Telephone Encounter 1.Appointment scheduled within 5 calendar days:YES/NO: no? 2.Virtual or in-person appointment: In-Person and N/A 3.Information related to the patient ER/ED visit: A. Facility Name:? [facility] [place] See notes in media B. Date of ED Visit: 10/06/2024 C. Reason for visit (Diagnosis/Symptoms):? chest pain 4.Is the record of the Emergency Department visit in the chart: YES/NO: yes? a. IF NOT, patient was instructed to have records faxed to office, and to bring in a hard copy during the appointment. documented in this encounter Plan of Treatment Upcoming Encounters Date Type Department Care Team (Late st Contact Info) Description 02/15/2025 3:30 PM EDT Office Visit [facility] Internal Medicine [address] [place] [address] Eduardo Garcia MD [address] [place] [phone] [email or web address] documented as of this encounter Visit Diagnoses Not on filedocumented in this encounter Additional Health Concerns Assessment Noted Time PHQ-2 Depression Total Score: 1 09/03/19 25 4:24 PM EDT documented as of this encounter Care Teams Nitric Acid Concentrator Operator Relationship Specialty Start Date End Date Eduardo Garcia MD [address] [place] [phone] [email or web address] PCP - General Internal Medicine 03/11/20 Eduardo Garcia MD [address] [place] [phone] [email or web address] Insurance Assigned Provider 08/31/23 Leonor Rose MD [address] [place] [phone] Neurosurgeon Neurosurgery 05/22/19 Familia Contreras MD [address] [place] [phone] Physical Therapist Physical Medicine and Rehabilitation 05/22/19 Jeyson Hu MD [address] [place] [phone] Internal Medicine 12/14/19 Jus Liu MD [address] [place] [address] [address] Gastroenterology 12/29/19 Joe Shah MD [address] [place] [phone] Orthopedic Surgery 04/18/20 Jj Desai MD [address] [place] [address] Dr ELLER [address] [place] [address] [place] [id number] General Surgery 05/31/20 documented as of this encounter Additional Source Comments The information contained in this document represents components of the legal health record. It is not the complete legal health record.[facility]
== END 2025-01-11 08:46 | disposition home or self-care (01) ==
LOC: HO.US 08:45
PROVIDERS: PCP Internal Medicine; Visit Provider Internal Medicine Gastroenterology
DX: K74.60 Unspecified cirrhosis of liver (principal); K75.81 Nonalcoholic steatohepatitis (NASH)
CPT/HCPCS: 76705; 76981

== ENCOUNTER → 2025-01-11 08:46 | Outpatient (BNV) | payer MEDICARE, MEDICAID, SELFPAY ==
[2024-07-15 09:17] VITALS: BP 128/60; BMI 27.1
== END ==
PROVIDERS: PCP Internal Medicine; Visit Provider Radiology Diagnostic Radiology
DX: R16.0 Hepatomegaly, not elsewhere classified (principal)
CPT/HCPCS: 76705

== ENCOUNTER 2025-01-13 09:18 | Outpatient (AMB) | payer MEDICARE, MEDICAID, SELFPAY ==
[2024-07-15 09:17] VITALS: BP 128/60; BMI 27.1
[2025-01-13 09:37] VITALS: BP 100/52; PULSE 86; O2SAT 98; BMI 25.1
--- NOTE | 2025-01-13 09:37 | MHC.OFFVIS ---
Vital Signs 01/13/25 09:37 Height 5 ft 2 in Weight 137 lb 2.04 oz BMI 25.1 BP 100/52 L Blood Pressure Location Rt brachial Position Sitting Pulse 86 Pulse Source Pulse Oximeter Pulse Oximetry (%) 98 Oxygen Delivery Method Room Air Intake Visit Reasons: T2DM Intake Note: Patient present today to follow up on Type 2 Diabetes Mellitus. Patient receives Leobardo 3 Plus supplies through: [employer] Last Diabetic Eye exam: August 2024 Last Podiatry Visit: Does not see a Shingle Bolt Cutter Random Glucose: 142 mg/dl HgA1C: 7.3% 01/13/2025 Roll Up Guider Operator Required: No Accompanied by: Self / Same As Patient Allergies duloxetine (From CYMBALTA) Allergy (Intermediate, Verified 01/13/25 09:38) SHAKINESS Medication List - Last Reconciled 01/13/25 by Joe Magaña MD acetaminophen (Tylenol Extra Strength) 500 mg PO Q6H PRN albuterol sulfate 90 mcg/actuation 90 mcg inhalation BID PRN alcohol swabs (Alcohol Prep Pads) 1 pad topical TID ascorbic acid (vitamin C) 1,000 mg (2 x 500 mg) PO DAILY aspirin 81 mg PO DAILY azathioprine 75 mg (1.5 x 50 mg) PO DAILY benzonatate 100 mg PO TID PRN blood sugar diagnostic (FreeStyle Lite Strips) As directed cholecalciferol (vitamin D3) 25 mcg PO DAILY empagliflozin (Jardiance) 25 mg PO DAILY esomeprazole magnesium 40 mg PO BID fluticasone propionate 50 mcg/actuation 50 mcg intranasal DAILY PRN FreeStyle Leobardo 3 Plus Sensor (blood-glucose sensor) every 15 days NS FreeStyle Leobardo 3 [place] (blood-glucose,welder/fitter,cont) As directed for use with freestyle 3 sensors NS hydroxychloroquine 200 mg PO BID insulin aspart U-100 (Novolog FlexPen U-100 Insulin aspart) 8 units (0.08 mL) subcut DAILY 30 days insulin degludec (Tresiba FlexTouch U-100 insulin) 10 units (0.1 mL) subcut DAILY 30 days lancets (TRUEplus Lancets) As directed lisinopril 2.5 mg PO DAILY lorazepam 0.5 mg PO QID PRN metformin ER 1,000 mg PO BID metoprolol succinate ER 25 mg PO DAILY nortriptyline 10 mg PO BEDTIME nut.tx.gluc intol,lf,soy-fiber 0.08-1.5 gram-kcal/mL (Glucerna 1.5 Shaheen) 1 ea PO BID ondansetron 4 mg PO Q6-8H PRN oxycodone 5 mg PO Q4-6H PRN pen needle, diabetic twice daily plecanatide (Trulance) 3 mg PO DAILY rosuvastatin 5 mg PO DAILY simethicone (Gas Relief (simethicone)) 125 mg PO BID-QID PRN sucralfate 10 mL PO BID thiamine HCl (vitamin B1) 100 mg PO DAILY ursodiol 500 mg PO BID walker As directed HPI Comments Details: [age] YO female who is seen in f/u for T2DM. Pt last saw Tari Fernandez NP on 10/28/24. At her last visit on 10/08/2024 glipizide and Lantus were discontinued and Tresiba was started along with once daily Humalog. Initially diagnosed with T2DM in 2008. Saw endocrinology in the past and was discharged due to normal A1C Was initially started on treatment with: metformin, januvia was ineffective glipizide was causing afternoon lows GLP 1 agonist not recommended due to tight pylorus and chronic acid reflux symptoms. She did complain of abdominal pain for several days in the right upper quadrant which has since resolved and felt she fell to his attributed to drink extra carbonated beverages. No further recurrent and she does have follow up with GI. Current regimen: Tresiba 10 units Humalog 10 units with breakfast Jardiance 25 mg metformin ER 1000mg bid 169 14 day continuous glucose monitor report reviewed Glucose Managment indicator 7.4 % TIme in ranges: 3% very high (above 250) 31 % high ?(181-250) 66 % in range ?(70-180] 0 % low (69-55) 0 % ?very low (below 54) 23.8 Standard Deviation Interpretation: post-prndial elevation after breakfast Treats lows with oj, soda doesn't recheck afterward No recent hypoglycemia Family history of T2DM: mother, father, aunts Denies retinopathy: eyes checked yearly, saw optho 09/2024 Has neuropathy, some burning pain does not see podiatry No nephropathy, on low-dose LESLEE inhibitor 07/14/2024 eGFR>60 10/2023 microalbumin less than 5 Has HLD, on statin. Last LDL 67 as measured on 07/14/2024. Has CAD stent 2022 Sees cardiology every 6 months Followed by Rheumatology for lupus Recently seen by diabetes educato [facility] Medical History Trigger finger, left ring finger Cirrhosis Antiphospholipid antibody syndrome Leg pain, right Abdominal bloating Lupus Arthritis POOL (dyspnea on exertion) Gallstones Cirrhosis Nonalcoholic steatohepatitis (SHARMA) Autoimmune hepatitis High blood pressure Fibromyalgia Diabetes Surgical History History of esophagogastroduodenoscopy (EGD) History of heart artery stent Hx of cholecystectomy Hx of endoscopy History of colonoscopy History of shoulder surgery History of cataract surgery (2010) History of repair of right rotator cuff (08/2011) History of cervical discectomy (07/2009) History of carpal tunnel release Family History Father History of diabetes mellitus, type II History of hypertension History of heart bypass surgery Mother History of diabetes mellitus, type II Brother History of gout Paternal Uncle Cancer Paternal Aunt Cancer Social History Household Members: None Housing: Apartment Are you a primary critical care technician to a significant other at home: No 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 have visiting nurse or other home services: No Alcohol intake: never Patient Tobacco Use Status: Never used Tobacco service: No Current occupational status: disabled Physical Exam Vital Signs: Last Vital Signs Pulse 86 01/13/25 09:37 BP 100/52 L 01/13/25 09:37 Pulse Ox 98 01/13/25 09:37 Oxygen Delivery Method Room Air 01/13/25 09:37 BMI result Body Mass Index 25.1 Const Other: Absence of Cushingoid features. Absence of acromegalic features. Neck exam reveals nl size thyroid about 15 gms. No thyroid nodules palpable. Heart S1 S2, Reg R/R. No M/R G. Skin exam reveals absence of vitiligo or acanthosis nigricans. No edema Visual exam of foot performed. No ulcerations or open lesions. No inter digit maceration or fissuring. + onychomycosis: Left great toe only, no callouses. Sensation intact to monofilament exam. Vibratory sensation is normal with 128 Hz tuning fork. Pulses positive distally Results AMB Hemoglobin A1c AMB Hemoglobin A1c 7.3 % Last Edit by WILLIAM Eastman on 01/13/25 09:52 Results Reviewed Results Reviewed: Laboratory Last Values Glucose (Clinic) 142 mg/dL (60-115) H 01/13/25 09:43 Assessment & Plan Assessment & Plan (1) Diabetes: Comment: NIDDM Code(s): E11.9 - Type 2 diabetes mellitus without complications Category: Medical Plan: This is a 64 yo female with a hx of Type 2 DM being treated with metformin, Jardiance and basal-bolus insulin with fair glycemic control and known macrovascular complications namely CAD. Plan is to increase the Humalog to 16 units pre-breakfast to stop post-prndial elevation. Will have pt check lipid profile ordered by cardiology and micro/cr. Will have pt f/u with primary care diabetes team in 3 mos. Orders: Orders Microalbumin, Random (w Creat) Today E11.9 - Type 2 diabetes mellitus without complications AMB Hemoglobin A1c Today E11.9 - Type 2 diabetes mellitus without complications Coding Level of Care Code Est Pt Level 4 (12433) Complex EM visit Add On G2211 Diagnoses Diabetes E11.9
[2025-01-13 09:47] LABS: Glucose, Whole Blood 142 mg/dL (60-115)
--- OUTSIDE RECORDS SUMMARY | 2025-01-13 09:58 | XMS_ITS | Clinical Summary ---
Author Organization [facility] Address [address] [address] Phone Care Team Providers Care Dynamometer Tester Name Role Phone Eduardo Garcia MD Unavailable Leonor Rose MD Unavailable Familia Contreras MD Unavailable Jeyson Hu MD Unavailable Jus Liu MD Unavailable Eduardo Garcia MD Primary Care Provider Joe Shah MD Unavailable Jj Desai MD Unavailable Allergies Active Allergy Reactions Criticality Noted Date Comments Atorvastatin Dry Mouth Low 02/24/2024 Duloxetine Dystonia,Other (See Comments) High 12/13/2017 Also shaking 2017 Other reaction(s): SHAKINESS Other reaction(s): Dystonia Also shaking 2017 Meclizine Dizziness 02/05/2022 Medications LORazepam (ATIVAN) 0.5 MG tablet Take 0.5 mg by mouth daily as needed. 2020 Active GAS RELIEF EXTRA STRENGTH 125 mg Cap Take 125 mg by mouth daily as needed. 2020 Active nortriptyline (PAMELOR) 10 MG capsule Take 10 mg by mouth nightly at bedtime as needed. 2020 Active lansoprazole (PREVACID) 30 MG capsule Take 30 mg by mouth 2 (two) times a day. 2020 Active sucralfate (CARAFATE) 100 mg/mL suspension Take 100 mg by mouth 2 (two) times a day. 2020 Active ascorbic jgka-dfrachhj-rmr (EMERGEN-C) 1,000 mg PwEP Take 1 packet by mouth every other day. Active naloxone (NARCAN) 4 mg/actuation nasal sprayIndications:Chron ic, continuous use of opioids 1 spray by Intranasal route once for 1 dose. After one (1) spray, call 911. If no response in 3-5 minutes, repeat with second nasal spray. 1 each 1 2022 Active VENTOLIN HFA 90 mcg/actuation inhalerIndications:Bro nchospasm INHALE 2 PUFFS EVERY 4 HOURS NEEDED FOR WHEEZING 18 g 3 2022 Active ASCORBIC ACID WITH CARLA HIPS 500 MG tablet TAKE 2 TABLETS (1,000 MG) BY MOUTH ONCE DAILY 2022 Active thiamine (VITAMIN B-1) 100 MG tablet Take 100 mg by mouth daily. 2022 Active linaCLOtide (LINZESS) 290 mcg Cap capsuleIndications:Con stipation, unspecified constipation type Take 1 capsule (290 mcg total) by mouth daily. 90 capsule 3 2022 Active Additional Information Patient not taking.Reported on 11/13/2024 DICLOFENAC SODIUM TP Apply 1 Application topically daily as needed. 2022 Active azaTHIOprine (IMURAN) 50 mg tablet Take 75 mg by mouth every morning. 2022 Active blood-glucose Misc meter by Miscellaneous route as needed. Glucose meter Freestyle lite 1 each 2023 Active TRUEPLUS LANCETS 33 gauge MiscIndications:Type 2 diabetes mellitus without complications TEST BLOOD SUGAR THREE TIMES DAILY BEFORE MEALS 100 each 5 2023 Active Additional Information Patient not taking.Reported on 11/13/2024 atorvastatin (LIPITOR) 20 MG tabletIndications:Athe rosclerosis of [place] coronary artery of [place] traverse heart without angina pectoris,Type 2 diabetes mellitus without complication, without long-term current use of insulin,Pure hypercholesterolemia take 1 tablet by mouth at bedtime 90 tablet 3 2023 Active Additional Information Patient not taking.Reported on 11/13/2024 JARDIANCE 25 mg tabletIndications:Type 2 diabetes mellitus without complications take 1 tablet by mouth every day 30 tablet 11 2023 Active doxycycline monohydrate (MONODOX) 100 MG capsule Take 1 capsule (100 mg total) by mouth 2 (two) times a day. 14 capsule 2023 Active Additional Information Patient not taking.Reported on 11/13/2024 cholecalciferol (VITAMIN D3) 25 MCG (1,000 unit) tablet take 1 tablet by mouth every day 30 tablet 11 2023 Active metoprolol succinate (TOPROL-XL) 25 MG 24 hr tablet Take 25 mg by mouth daily. 2023 Active rosuvastatin (CRESTOR) 5 MG tablet Take 5 mg by mouth daily. 2023 Active glipiZIDE (GLUCOTROL) 10 MG tabletIndications:Type 2 diabetes mellitus without complications take 1 tablet by mouth once daily 90 tablet 3 2023 Active Additional Information Patient not taking.Reported on 11/13/2024 blood sugar diagnostic (FREESTYLE LITE) Strp stripsIndications:Type 2 diabetes mellitus without complications Inject 1 each under the skin every morning. USE DIRECTED TO TEST BLOOD SUGAR EVERY DAY 100 strip 11 2023 Active lancets (TRUEPLUS LANCETS) 33 gauge MiscIndications:Type 2 diabetes mellitus without complication Inject 1 each into the skin every morning. 100 each 11 2023 Active fluticasone propionate (FLONASE) 50 mcg/actuation nasal sprayIndications:Aller gic rhinitis due to other allergic trigger, unspecified seasonality 2 sprays by Nasal route daily as needed. 16 g 3 2024 Active metFORMIN (GLUCOPHAGE-XR) 500 MG 24 hr tabletIndications:Type 2 diabetes mellitus without complications TAKE 2 TABLETS BY MOUTH TWICE DAILY 120 tablet 11 2024 Active lisinopril (PRINIVIL,ZESTRIL) 2.5 MG tabletIndications:Hype rtension TAKE 1 TABLET BY MOUTH EVERY DAY 30 tablet 11 2024 Active aspirin 81 MG EC tablet TAKE 1 TABLET BY MOUTH DAILY 90 tablet 3 2024 Active cyclobenzaprine (FLEXERIL) 5 MG tablet Take 1 tablet (5 mg total) by mouth 3 (three) times a day as needed (muscle spasm). 30 tablet 2024 Active TRULANCE 3 mg tablet Take 1 tablet by mouth every morning. 2024 Active BD ULTRA-FINE LANIE PEN NEEDLE 32 gauge x 5/32 Ndle 1 each nightly at bedtime. 2024 Active LANTUS SOLOSTAR U-100 INSULIN 100 unit/mL (3 mL) InPn injection pen Inject 8 Units under the skin nightly at bedtime. 2024 Active NOVOLOG FLEXPEN U-100 INSULIN 100 unit/mL (3 mL) flexpen Inject 4 Units under the skin daily with breakfast. 2024 Active hydroxychloroquine (PLAQUENIL) 200 mg tablet Take 1 tablet by mouth 2 (two) times a day. 2024 Active predniSONE (DELTASONE) 20 MG tablet Take 1 tablet by mouth every morning. 2024 Active ondansetron (ZOFRAN-ODT) 4 MG disintegrating tabletIndications:Naus ea DISSOLVE 1 TABLET ON TONGUE EVERY 8 HOURS NEEDED FOR NAUSEA 30 tablet 3 2024 Active TRESIBA FLEXTOUCH U-100 injection pen Inject 10 Units under the skin nightly at bedtime. 2024 Active ALCOHOL PREP PADS PadMIndications:Type 2 diabetes mellitus without complications USE THREE TIMES DAILY 100 each 11 2024 Active oxyCODONE 5 MG immediate release tabletIndications:Bila teral low back pain with right-sided sciatica Take 1 tablet (5 mg total) by mouth every 4 (four) hours as needed (low back pain with righ sided sciatica). partial fill okay upon patient request No more than 5 a day 140 tablet 02/08 Active VENTOLIN HFA 90 mcg/actuation inhaler INHALE 2 PUFFS BY MOUTH EVERY 6 HOURS NEEDED FOR WHEEZING OR SHORTNESS OF BREATH 18 g 3 2024 Active VENTOLIN HFA 90 mcg/actuation inhaler INHALE 2 PUFFS BY MOUTH EVERY 6 HOURS NEEDED FOR WHEEZING 18 g 3 01/08 Discontinued oxyCODONE 5 MG immediate release tabletIndications:Bila teral low back pain with right-sided sciatica Take 1 tablet (5 mg total) by mouth every 4 (four) hours as needed (low back pain with righ sided sciatica). partial fill okay upon patient request No more than 5 a day 140 tablet 01/04 Discontinued( Reorder) Active Problems Problem Noted Date Diagnosed Date Viral URI 10/09/2024 Assessment & Plan (10/09/2024 12:00 PM EDT): Patient presenting today with 5 days of fatigue, laryngitis, and shortness of breath. She was seen in the ER, viral panel negative, chest x-ray negative. She was ultimately prescribed prednisone 20 mg daily x 5 days as well as Tessalon Perles. She notes improvement of some of her symptoms including her shortness of breath, however today she has been experiencing some shortness of breath. She states overall she feels tired and that she lost her voice. No other associated symptoms. The only thing that she has been doing is prednisone for management. She is afebrile, hemodynamically stable. Ears and throat were benign. Lungs were clear to auscultation bilaterally, no wheezing or crackles. I highly suspect that this continues to be a viral URI as she is only had symptoms for 5 days and she lacks any evidence of bacterial infection. Extremely low suspicion for pneumonia as she is afebrile and there are no crackles on exam, however will obtain chest x-ray to further assess. I do suspect that some of her shortness of breath is likely from an asthma exacerbation, although no wheezing auscultated on exam. I recommended that she take her Ventolin inhaler for symptomatic relief. Discussed that with a viral URI it does take a little bit for her symptoms to resolve and start to improve, advised that I suspect that she is at the peak and that it will slowly improve over time. Discussed symptomatic treatment including Claritin/Zyrtec, Flonase, tea and honey, cough drops, Vicks vapor rub. She could also use a saline nasal spray. Discussed that if symptoms do not improve after a week and 1/2 to 2 weeks she should call the office to let us know. I do not think that additional steroids are indicated at this time. I do not think that antibiotics are indicated at this time. Muscle spasm 2024 Assessment & Plan (2024 4:57 PM EDT): The primary source of her discomfort appears to be a muscle spasm, as evidenced by the palpable difference in muscle tightness of the left tricep. Her history of cervical radiculopathy may also be contributing to her symptoms, however there is no tenderness to palpation along the spinous processes or paraspinous muscles. Cardiac related concerns unlikely as patient is not experiencing any chest pain/shortness of breath. Will treat with cyclobenzaprine 5 mg 3 times daily as needed for relief. Discussed side effects including drowsiness, advised patient she should not operate heavy machinery. She also has a prescription for diclofenac topical, advised that it would be beneficial to put this over the area of her left tricep for pain and anti-inflammatory relief. Advised the use of Tylenol for pain relief and oxycodone as needed. The use of a heating pad and massage therapy was also recommended. Major depressive disorder, recurrent, moderate 0 06/25/2024 Dyspnea 02/18/2024 Assessment & Plan (02/18/2024 2:19 PM EDT): Unclear etiology at this time however could be due to pneumonitis vs pneumonia vs sinusitis EKG: sinus rhythm HR 76 -Cepheid Multiplex negative -CXR -doxycycline 100mg bid x 7 days -patient will report living conditions to the town again (has already called twice) -albuterol MDI Flu vaccine need 02/18/2024 Atherosclerotic heart diseas e of [place] coronary artery with other forms of angina pectoris 02/21/2023 Systemic lupus erythematosus 09/21/2019 Nocturia 12/13/2017 Bilateral low back pain with bilateral sciatica 06/06/2017 Cervical radiculopathy 06/06/2017 Depression 06/06/2017 Respiratory abnormality 06/06/2017 Fatigue 06/06/2017 Other cirrhosis of liver 06/06/2017 Gastroesophageal reflux disease 06/06/2017 Overview (01/29/2024): [facility] seen 01/02/24 Dr. Liu - pt has gastric emptying study- see scan dated 01/03/24 normal 4 hour study Abnormal liver function tests 06/06/2017 Type 2 diabetes mellitus without complications 0 06/06/2017 Hypertension 06/06/2017 Autoimmune hepatitis 12/25/2016 Overview (07/25/2018): dr roman Encounters Date Type Department Care Team Description 01/12/2025 Orders Only [facility] Internal Medicine [address] [facility] [place] [address] Chai Gold MD 01/08/2025 Refill [facility] Internal Medicine [address] [place] [address] Eduardo Garcia MD Medication Refill 01/04/2025 Refill [facility] Internal [facility] [address] [place] [address] Eduardo Garcia MD Medication Refill (CSRP) 12/08/2024 Orders Only [facility] [address] [place] [address] Chai Gold MD 12/03/2024 Refill [facility] [address] [place], [place] [id number] Eduardo Garcia MD Medication Refill (CSRP) 11/22/2024 Refill [facility] [address] [place] [address] Kavon Fitzgerald MD Medication Refill 11/13/2024 10:30 AM EDT Office Visit [facility] [address] [place] [address] Eduardo Garcia MD Need for pneumococcal 20-valent conjugate vaccination (Primary Dx) 11/11/2024 Orders Only [facility] [address] [facility] [place] [address] Chai Gold MD 11/04/2024 Refill [facility] [address] [place] [address] Eduardo Garcia MD Medication Refill (CSRP) 10/30/2024 Refill [facility] [address] [place] [address] Eduardo Garcia MD Medication Refill from Last 3 Months Immunizations Immunization Administration Dates Next Due COVID-19 (Pre-03/18) Moderna Vaccine, mRNA, PF 09/22/2020,08/25/2020 INFLUENZA, SPLIT VIRUS, TRIVALENT PF 02/18/2024, 02/21/2016 INFLUENZA, SPLIT VIRUS, TRIV ALENT W/ PRESERVATIVE IM 09/23/2020,03/24/2014,02/14/2012,04/30 Influenza Quadrivalent Prese rvative Free IM 02/21/2023,02/05/2022,04/07/2021,03/11,02/20/2019 Influenza trivalent preserva tive free intradermal 03/12/2013 Influenza, Unspecified Formulation 03/30/2010 PPD Test 07/27/2014 Pneumococcal conjugate PCV20 11/13/2024 Pneumococcal polysaccharide PPSV23 08/21/2011 Td (adult) 5 Lf Tetanus Toxo id, PF, Adsorbed 01/23/2001 Tdap 11/17/2012 Family History Medical History Relation Comments Diabetes Father Heart disease Father Breast cancer Mother Dementia Mother Diabetes Mother Kidney disease Mother Heart disease Paternal Aunt Relation Status Comments Father Mother at age 79 Paternal Aunt Social History Tobacco Use Types Packs/Day Years Used Date Smoking Tobacco: Never Smokeless Tobacco: Never Tobacco Cessation:Counseling Given: Not Answered Alcohol Use Standard Drinks/Week Comments No 0 [...] high school, GED, job training, learning the Micronesian language, technical skills, or developing parenting skills)? [...] on file Sexual Orientation Not on file Last Filed Vital Signs Vital Sign Reading Time Taken Comments Blood Pressure 124/54 11/13/2024 10:59 AM EDT Pulse 84 11/13/2024 10:59 AM EDT Temperature 36.8 C (98.3 F) 11/13/2024 10:59 AM EDT Respiratory Rate 20 10/09/2024 11:03 AM EDT Oxygen Saturation 98% 11/13/2024 10:59 AM EDT Inhaled Oxygen Concentration - - Weight 62.3 kg (137 lb 6.4 oz) 11/13/2024 10:59 AM EDT Height 154.4 cm (5' 0.79 ) 11/13/2024 10:59 AM E DT Body Mass Index 26.14 11/13/2024 10:59 AM EDT Plan of Treatment Upcoming Encounters Date Type Department Care Team (Late st Contact Info) Description 02/15/2025 3:30 PM EDT Office Visit [facility] Internal Medicine [address] [place] [address] Eduardo Garcia MD [address] [place] [address] [email or web address] Health Maintenance Due Date Last Done Comments HEPATITIS A VACCINES (1 of 2 - Risk 2-dose series) 09/03/1979 ZOSTER VACCINES (1 of 2) 09/03/1979 COLOGUARD 2005 FIT TEST 2005 FOBT 2005 SIGMOIDOSCOPY 2005 VIRTUAL COLONOSCOPY 2005 RSV VACCINE (1 - Risk 60-74 years 1-dose series) 2020 Adult Td,Tdap Booster 11/17/2022 11/17/2012, 001 COVID-19 VACCINE ( season) 2024 05/25/2022, 06/14/2021, 09/22/2020, Additional history exists HEMOGLOBIN A1C 01/11/2025 07/14/2024, 02/25, 03/20/2024, Additional history exists BLOOD PRESSURE 05/15/2025 11/13/2024 LIPID PANEL 07/14/2025 07/14/2024, 06/27, 07/14/2024, Additional history exists DEPRESSION SCREENING 2025 2024 DIABETIC EYE EXAM 09/16/2025 09/16/2024, , 03/05/2024, Additional history exists ALKALINE PHOSPHATASE LEVEL 09/30/202509/30, 09/17/2024, 07/14/2024, Additional history exists CREATININE LEVEL 09/30/2025 09/30/2024, , 07/14/2024, Additional history exists POTASSIUM LEVEL 09/30/2025 09/30/2024, 08/26, 07/14/2024, Additional history exists MAMMOGRAM 11/24/2026 11/24/2024, 10/26, 11/15/2022, Additional history exists PAP SMEAR 02/07/2027 02/07/2022, 05/11/2016 COLONOSCOPY 05/03/2031 05/03/2021, 09/25/2012 COLORECTAL CANCER SCREENING 05/03/2031 HIV ONE-TIME SCREENING (18-65 YEARS) Completed 02/12/2018 HEPATITIS C SCREENING Completed 05/28/2024, 019 PNEUMOCOCCAL VACCINES (50+ years) Completed 11/13/2024, 08/21/2011 SMOKING STATUS SCREENING (Once After 26 Yrs) Completed 11/13/2024 HIB VACCINES Aged Out No longer eligi ble based on patient's age to complete this topic MENINGOCOCCAL VACCINES (ACWY) Aged Out No longer eligible based on patient's age to complete this topic MENINGOCOCCAL VACCINES (B) Aged Out N o longer eligible based on patient's age to complete this topic Medical Devices Not on file Procedures Procedure Name Priority Date/Time Associated Diagnosis Comments OUTSIDE US ABDOMEN REPORT ONLY Routine 01/11/2025 9:46 AM EDT MAMMOGRAPHY Routine 11/24/2024 9:32 AM EDT OUTSIDE ALKALINE PHSOPHATASE LEVEL Routine 09/30/2024 OUTSIDE POTASSIUM LEVEL Routine 09/30/2024 OUTSIDE SERUM CREATININE LEVEL Routine 09/30/2024 DIABETES EYE EXAM FOR RESULT ENTRY ONLY Routine 09/16/2024 2:00 PM EDT OUTSIDE HEMOGLOBIN A1C Routine 07/14/2024 OUTSIDE HDL Routine 07/14/2024 OUTSIDE HEPATITIS C VIRUS SCREENING Routine 05/28/2024 PAP TEST Routine 02/07/2022 HM COLONOSCOPY FOR RESULT ENTRY ONLY Routine 05/03/2021 from Last 3 Months or Most Recently Relevant to Health Maintenance Results * Outside US Abdomen Report Only (01/11/2025 9:46 AM EDT) Result [facility] Provider IMG US ABDOMEN Final Res ult * HM MAMMOGRAPHY FOR RESULT ENTRY ONLY (11/24/2024 9:32 AM EDT) Result [facility] Historical Provider HEALTH MAINTENANCE Final Result * Outside Potassium Level (09/30/2024) Potassium level - External 4.1 3.4 - 5.0 mmol/L EXTERNAL NON-INTERFACED REF LAB Result [facility] Provider LAB BLOOD ORDERABLES Ruth l Result Performing Organization Address City/[facility]/ZIP Co de Phone Number EXTERNAL NON-INTERFACED REF LAB * (ABNORMAL) Outside Serum Creatinine Level (09/30/2024) Creatinine, serum - External 0.73(A) 0.8 - 1.3 mg/dL EXTERNAL NON-INTERFACED REF LAB Result [facility] Provider LAB BLOOD ORDERABLES Ruth l Result Performing Organization Address City/[facility]/ZIP Co de Phone Number EXTERNAL NON-INTERFACED REF LAB * (ABNORMAL) Outside Alkaline Phosphatase Level (09/30/2024) ALKALINE PHOSPHATE LEVEL - EXTERNAL 166(A) 50 - 100 U/L EXTERNAL NON-INTERFACED REF LAB Result [facility] Provider LAB BLOOD ORDERABLES Ruth l Result EXTERNAL NON-INTERFACED REF LAB * HM DIABETES EYE EXAM FOR RESULT ENTRY ONLY (09/16/2024 2:00 PM EDT) Result [facility] Historical Provider HEALTH MAINTENANCE Final Result * Outside HbA1c (07/14/2024) Hemoglobin A1c - External 7.8 % us Historical Provider LAB BLOOD ORDERABLES Ruth l Result * Outside HDL (07/14/2024) HDL - External 41 40 - 80 mg/dL Historical Provider LAB BLOOD ORDERABLES Ruth l Result * Outside Hepatitis C Virus Screening (05/28/2024) Hepatitis C Screening - External Neg [facility] Provider LAB BLOOD ORDERABLES Ruth l Result * Pap Smear (02/07/2022) [facility] Provider CYTOLOGY ORDERABLES Final Result * HM COLONOSCOPY FOR RESULT ENTRY ONLY (05/03/2021) [facility] Provider HEALTH MAINTENANCE Edited Result - Final from Last 3 Months or Most Recently Relevant to Health Maintenance Insurance MEDICARE PART A & B [facility] MEDICARE PART A & [place] [facility] & B Member Subscriber Plan / Payer (Ef fective 2010-) Name:Radha Chong Member ID:[id number] Relation to Subscriber:Self Name:Radha Chong Subscriber ID:[id number] Payer ID:[id number] Group ID:Not on file Type:Medicare Address: [employer] [address] [place] [id number] [place] A & [place] & B Member Subscriber Plan / Payer (Ef fective 2010-Present) Name:Radah Chong Member ID:[id number] Relation to Subscriber:Self Name:Radha Chong Subscriber ID:[id number] Payer ID:[id number] Group ID:Not on file Type:Medicare Address: [employer] [address] [place] Advance Directives For more information, please contact: [phone] (9AM - 5PM [facility], Saturday-Saturday) Documents on File Type Date Recorded Patient Social Science Manager Expl anation Healthcare Proxy 08/20/2017 12:27 PM Healt hcare Proxy (In Sudanese) Care Teams Dynamometer Tester Relationship Specialty Start Date End Date Eduardo Garcia MD [address] [place] [address] PCP - General Internal Medicine 03/11/20 Eduardo Garcia MD [address] [place] [address] Insurance Assigned Provider 08/31/23 Leonor Rose MD [address] [place] [address] Neurosurgeon Neurosurgery 05/22/19 Familia Contreras MD [address] [place] [phone] Physical Therapist Physical Medicine and Rehabilitation 05/22/19 Jeyson Hu MD [address] [place] [address] Internal Medicine 12/14/19 Jus Liu MD [address] [place] [address] Dr [address] [place] [address] Gastroenterology 12/29/19 Joe Shah MD [address] [place] [phone] Orthopedic Surgery 04/18/20 Jj Desai MD [address] [place] [address] [address] [place] [address] General Surgery 05/31/20 Additional Source Comments The information contained in this document represents components of the legal health record. It is not the complete legal health record.[facility]
--- OUTSIDE RECORDS SUMMARY | 2025-01-13 09:58 | XMS_ITS | Encounter Summary ---
Author Organization [employer] Address [address] [place] [address] Care Team Providers Care Gynaecological Oncologist Name Role Phone Unavailable Primary Care Provider Unavailabl e Reason for Visit * Reason Onset Date Comments Appointment 09/11/2022 Encounter Details Date Type Department Care Team (Late st Contact Info) Description 09/11/2022 Telephone [facility] [address] [place], [place] [phone] Rich Mancera DDS [address] [place], [place] [phone] Appointment Social History Tobacco Use Types Packs/Day [...]
== END 2025-01-13 09:59 | disposition home or self-care (01) ==
LOC: HO.ENCR 09:19
PROVIDERS: PCP Internal Medicine; Visit Provider Internal Medicine Endocrinology, Diabetes & Metabolism
DX: E11.9 Type 2 diabetes mellitus without complications (principal)
CPT/HCPCS: 99214; G2211

== ENCOUNTER → 2025-01-13 09:18 | Outpatient (BNVA) | payer MEDICARE, MEDICAID, SELFPAY ==
[2024-07-15 09:17] VITALS: BP 128/60; BMI 27.1
== END ==
PROVIDERS: PCP Internal Medicine; Visit Provider Internal Medicine Endocrinology, Diabetes & Metabolism
DX: E11.9 Type 2 diabetes mellitus without complications (principal); Z79.4 Long term (current) use of insulin; Z79.84 Long term (current) use of oral hypoglycemic drugs
CPT/HCPCS: 82947; 83036; 99212

== ENCOUNTER 2025-01-13 10:43 | Outpatient (REF) | payer MEDICARE, MEDICAID, SELFPAY ==
[2024-07-15 09:17] VITALS: BP 128/60; BMI 27.1
== END 2025-01-13 10:44 | disposition home or self-care (01) ==
LOC: HO.10HDLNP 10:43
PROVIDERS: Visit Provider Internal Medicine Endocrinology, Diabetes & Metabolism
DX: E11.9 Type 2 diabetes mellitus without complications (principal)
CPT/HCPCS: 82043; 82570

== ENCOUNTER 2025-01-17 19:34 | Emergency (ER) | payer MEDICARE, MEDICAID, SELFPAY ==
[2024-07-15 09:17] VITALS: BP 128/60; BMI 27.1
--- NOTE | 2025-01-17 19:35 | ED.GENADULT ---
HPI - General Adult General Chief complaint: Dizziness Stated complaint: dizzy, chills, burning in chest Time Seen by Provider: 01/17/25 22:11 Source: patient Mode of arrival: ambulatory Limitations: no limitations History of Present Illness ED Provider: Dr. Dulce Jara HPI narrative: 64-year-old female with a history of insulin-dependent diabetes, lupus, fibromyalgia, liver cirrhosis presenting with dizziness, shakiness, feeling like her blood sugar is low, poor appetite, intermittent chest discomfort that has been ongoing for the last 3 days or so. Symptoms are intermittent, worse with ambulation, better with rest. No change with movement of her head. No syncope or near-syncope. Admits that since she had been on prednisone several months ago, she has required insulin for her diabetes which is new for her. Admits that she is having a hard time getting adjusted to using insulin. Feels as though her blood sugar is running low but her continuous glucose monitor shows that her blood sugars are running normal. No reported fever. No sinus congestion, cough, abdominal pain, changes in her chronic constipation, lower extremity edema or pain, numbness/tingling/weakness of the extremities. No specific known sick contacts though she was at [facility] on Saturday and admits there was people there coughing. Related Data Home Medications ?Medication ?Instructions ?Recorded ?Confirmed albuterol sulfate 90 mcg/actuation 90 mcg inhalation BID PRN 06/06/20 01/13/25 aerosol inhaler Shortness Of Breath fluticasone propionate 50 50 mcg intranasal DAILY PRN Nasal 06/06/20 01/13/25 mcg/actuation nasal Congestion spray,suspension lorazepam 0.5 mg tablet 0.5 mg PO QID PRN Anxiety 06/07/20 01/13/25 ondansetron 4 mg disintegrating 4 mg PO Q6-8H PRN Nausea 06/07/20 01/13/25 tablet oxycodone 5 mg tablet 5 mg PO Q4-6H PRN Pain 06/07/20 01/13/25 empagliflozin 25 mg tablet 25 mg PO DAILY 06/13/20 01/13/25 (Jardiance) blood sugar diagnostic (FreeStyle #10 ea 02/25/23 01/13/25 Lite Strips) cholecalciferol (vitamin D3) 25 25 mcg PO DAILY 02/25/23 01/13/25 mcg (1,000 unit) tablet lisinopril 2.5 mg tablet 2.5 mg PO DAILY 02/25/23 01/13/25 metformin 500 mg tablet,extended 1,000 mg PO BID 02/25/23 01/13/25 release 24 hr nortriptyline 10 mg capsule 10 mg PO BEDTIME 04/03/24 01/13/25 alcohol swabs (Alcohol Prep Pads) 1 pad topical TID 06/08/24 01/13/25 lancets 33 gauge (TRUEplus Lancets) #100 ea 06/08/24 01/13/25 Previous Rx's ?Medication ?Instructions ?Recorded walker #1 ea 05/08/20 aspirin 81 mg tablet,delayed 81 mg PO DAILY #30 tabs 12/27/20 release nutrition tx glu 1 ea PO BID #8,000 mL 06/03/23 intol,lac-free,soy-fiber 0.08 gram-1.5 kcal/mL liquid (Glucerna 1.5 Shaheen) acetaminophen 500 mg tablet 500 mg PO Q6H PRN pain #30 tabs 03/11/24 (Tylenol Extra Strength) sucralfate 100 mg/mL oral 10 ml PO BID #1,000 mL 05/13/24 suspension simethicone 125 mg capsule (Gas 125 mg PO BID-QID PRN abdominal 06/08/24 Relief (simethicone)) distention #20 caps metoprolol succinate 25 mg 25 mg PO DAILY #90 tabs 08/20/24 tablet,extended release 24 hr FreeStyle Leobardo 3 Plus Sensor #6 ea 09/11/24 (blood-glucose sensor) FreeStyle Leobardo 3 Jasper #1 ea 09/11/24 (blood-glucose,medical library assistant,cont) pen needle, diabetic 32 gauge x #100 ea 09/11/24 hydroxychloroquine 200 mg tablet 200 mg PO BID #180 tabs 09/21/24 rosuvastatin 5 mg tablet 5 mg PO DAILY #30 tabs 09/21/24 ascorbic acid (vitamin C) 500 mg 1,000 mg (2 x 500 mg) PO DAILY 09/23/24 tablet #180 tabs benzonatate 100 mg capsule 100 mg PO TID PRN cough #20 caps 10/05/24 insulin degludec 100 unit/mL (3 10 unit (0.1 mL) subcut DAILY 30 10/08/24 mL) subcutaneous pen (Tresiba days #3 mL FlexTouch U-100 insulin) insulin aspart U-100 100 unit/mL 8 unit (0.08 mL) subcut DAILY 30 10/28/24 (3 mL) subcutaneous pen (Novolog days #3 mL FlexPen U-100 Insulin aspart) esomeprazole magnesium 40 mg 40 mg PO BID #60 caps 11/16/24 capsule,delayed release ursodiol 500 mg tablet 500 mg PO BID #60 tabs 11/16/24 plecanatide 3 mg tablet (Trulance) 3 mg PO DAILY #30 tabs 11/19/24 thiamine HCl (vitamin B1) 100 mg 100 mg PO DAILY #90 tabs 12/15/24 tablet azathioprine 50 mg tablet 75 mg (1.5 x 50 mg) PO DAILY #60 12/28/24 tabs meclizine 25 mg tablet 25 mg PO TID PRN dizziness #20 tabs 01/17/25 Allergies Allergy/AdvReac Type Severity Reaction Status Date / Time duloxetine (From CYMBALTA) Allergy Intermediate SHAKINESS Verified 01/17/25 19:42 Review of Systems Review of Systems: As per HPI, full review of systems performed and negative but for the above mentioned pertinent positives and negatives. [facility] Past Medical History Medical History Trigger finger, left ring finger Cirrhosis Antiphospholipid antibody syndrome Leg pain, right Abdominal bloating Lupus Arthritis POOL (dyspnea on exertion) Gallstones Cirrhosis Nonalcoholic steatohepatitis (SHARMA) Autoimmune hepatitis High blood pressure Fibromyalgia Diabetes Surgical History History of esophagogastroduodenoscopy (EGD) History of heart artery stent Hx of cholecystectomy Hx of endoscopy History of colonoscopy History of shoulder surgery History of cataract surgery (2010) History of repair of right rotator cuff (08/2011) History of cervical discectomy (07/2009) History of carpal tunnel release Family History Family History Father History of diabetes mellitus, type II History of hypertension History of heart bypass surgery Mother History of diabetes mellitus, type II Brother History of gout Paternal Uncle Cancer Paternal Aunt Cancer Social History Social History Household Members: None Housing: Apartment Are you a primary care management specialist to a significant other at home: No 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 have visiting nurse or other home services: No Alcohol intake: never Patient Tobacco Use Status: Never used Tobacco Smoked in Last 30 Days: No Use of substances other than those prescribed or required for medical reasons: No Advance Directives: No Advance Directives Information Provided: No Do you have a plan to hurt others: No Plan service: No Current occupational status: disabled Physical Exam ED Exam Exam: GENERAL: Ill-Appearing, appears uncomfortable. SKIN: Normal skin color for ethnicity, warm, dry, no rashes noted. HEENT: Normocephalic, atraumatic, no stridor, dry mucous membranes, dentition intact, EOMI, PERRLA. NECK: Soft, supple, full ROM, midline structures nontender, no step-offs, no deformities, no lymphadenopathy. CHEST: Heart regular rhythm, no murmurs, symmetric chest rise and fall, substernal chest discomfort with palpation at the 3rd and 4th ribs particularly on the left compared to the right, no crepitus. PULMONARY: Clear to auscultation bilaterally, diminished at the bases, no labored breathing, no wheezes/rhales/rhonchi. ABDOMINAL: Soft, nondistended, nontender, positive bowel sounds in all quadrants. : Deferred. MUSCULOSKELETAL: Normal tone, full range of motion, no deformities, no peripheral edema. NEURO: Alert and oriented x3, CN II through XII intact, equal strength and sensation bilateral upper and lower extremities, no focal neurologic deficits. PSYCHIATRIC: Flat affect, fluid speech, good eye contact and appropriate demeanor. Vital Signs: Vital Signs - 24 hr 01/17/25 19:40 01/17/25 20:15 01/17/25 20:17 Temperature 96.9 F 98.4 F Pulse Rate 76 80 75 Respiratory Rate 20 16 Blood Pressure 162/73 H 123/48 L 134/58 L Pulse Oximetry 99 97 Oxygen Delivery Method Room Air Room Air 01/17/25 20:19 01/17/25 20:19 01/17/25 22:57 Temperature 98.0 F Pulse Rate 85 86 70 Respiratory Rate 15 Blood Pressure 148/66 H 151/64 H 128/62 Pulse Oximetry 98 Oxygen Delivery Method Room Air BMI result Body Mass Index 25.3 Course Course Course Narrative: RME, this is a rapid medical exam performed by Gulshan Lindsey please refer to primary provider for complete H&P- 64-year-old female presents for evaluation of headache, shaking and body aches. Vitalas are stable in triage, no fever. Plan for basic labs and viral testing Medical Decision Making Medical Decision Making [facility] Narrative: Patient presents today with a chief complaint of dizziness. Differential diagnosis is extremely broad and includes posterior circulation deficits causing vestibular basilar symptoms, anemia, hypovolemia, middle or inner ear problems, intracranial abnormality such as stroke bleed or tumor, electrolyte abnormalities, cardiac arrhythmia, among many others. This patient does not have any focal neurological findings at this time. Workup today has been reassuring. No evidence of ACS, acute intracranial pathology or significant electrolyte abnormality. She does have some elevation in her blood sugar and liver enzymes however, this is baseline for her. She has close follow-up with a [employer] and b gang worker regarding her autoimmune hepatitis. Suspect early viral syndrome versus labile blood sugars in the setting of new insulin use in the last several months. Using shared decision making, plan for discharge home to follow-up with primary care and/or specialist. Patient understands and agrees with plan for discharge. Discharged home in stable condition. Differential Diagnosis Differential Diagnoses: The differential diagnosis associated with the presentation includes (as above) Admission/Observation Consideration of admission/observation: Escalation of care including admission/observation considered Lab Data [facility] Lab Attestation statement: I reviewed the patient's lab results. 01/17/25 20:02 01/17/25 20:02 Labs: Lab Results 01/17/25 01/17/25 Range/Units 20:02 20:22 WBC 4.7 L (4.8-10.8) X10*3/uL RBC 4.12 L (4.20-5.50) X10*6/uL Hgb 11.5 L (12.0-16.0) g/dl Hct 35.7 L (37.0-47.0) % MCV 86.7 (80.0-98.0) fL MCH 27.9 (27.0-33.0) pg MCHC 32.2 (31.0-35.0) g/dl RDW 14.7 (11.0-16.0) % Plt Count 178 (160-400) X10*3/uL MPV 9.6 (9.4-12.3) fL Immature Gran % (Auto) 0.4 (0.0-0.4) % Neut % (Auto) 61.7 (45-73) % Lymph % (Auto) 25.0 (20-40) % [place] % (Auto) 10.2 (2-11) % Eos % (Auto) 1.9 (0-4) % Baso % (Auto) 0.8 (0-2) % Lymph # (Auto) 1.2 (1.2-4.9) X10*3/uL [place] # (Auto) 0.5 (0.1-1.2) X10*3/uL Eos # (Auto) 0.1 (0.0-0.4) X10*3/uL Baso # (Auto) 0.0 (0.0-0.2) X10*3/uL Abs Immat Gran (auto) 0.02 (0.00-0.03) X10*3/uL Absolute Neuts (auto) 2.9 (2.0-8.3) x10*3/uL Absolute Nucleated RBC 0.000 (0.0-0.012) X10*3/uL Nucleated RBC % (auto) 0.0 (0.0-0.2) /100WBC Sodium 138 (135-145) mmol/L Potassium 3.7 (3.3-5.1) mmol/L Chloride 102 (96-108) mmol/L Carbon Dioxide 23 (22-29) mmol/L Anion Gap 17 (12-20) BUN 13 (9-16) mg/dL Creatinine 0.87 (0.5-1.4) mg/dL Estim Creat Clear Calc 56.9 Estimated GFR > 60 Random Glucose 166 H (60-115) mg/dL Calcium 8.9 (8.4-10.2) mg/dL Total Bilirubin 0.3 (0.0-1.0) mg/dL AST 40 H (5-31) U/L ALT 27 (0-31) U/L Alkaline Phosphatase 151 H (39-117) U/L Troponin I High Sens < 2.7 (<3.5-17.0) ng/L Total Protein 9.4 H (6.5-8.0) g/dL Albumin 4.1 (3.5-5.0) g/dL Urine Color Yellow Urine Appearance Clear Urine pH 5.5 (5.0-9.0) Ur Specific [place] 1.010 (1.005-1.025) Urine Protein Negative (Neg-Trace) mg/dL Urine Glucose (UA) >=1000 H (Negative) mg/dL Urine Ketones Negative (Negative) mg/dL Urine Blood Negative (Negative) Urine Nitrite Negative (Negative) Ur Leukocyte Esterase Negative (Negative) Urine RBC 0-2 (0-2) /HPF Urine WBC 0-5 (0-5) /HPF Ur Squamous Epith Cells 0-2 (0-2) /HPF Urine Bacteria None Seen (None Seen) Hyaline Casts 0-2 (0-2) /LPF COVID-19 (HITESH) Negative (Negative) COVID-19 Clin Com See Note Independent Interpretation I performed an independent interpretation of an: EKG Interpretation: My independent interpretation of the ECG reveals normal sinus rhythm with rate of 76, normal axis, normal intervals, no ST elevations or depressions to suggest ischemic changes, relatively unchanged from previous on 10/05/2024. External Record Review External record reviewed: Office record and Outpatient record Prescription Management I considered prescription management with: Other (meclizine) Chronic Conditions Patient?s care impacted by: Diabetes and Other (lupus) Discharge Plan Discharge Clinical Impression: Dizziness, Acute viral syndrome Patient Disposition: Home, Self-Care Instructions: Viral Syndrome (ED), Diabetes and Nutrition (ED) Additional Instructions: Try to drink plenty of fluids over the next 24 hours. Return to the emergency department with any new or worsening symptoms including: Worsening dizziness, fevers greater than 100?, inability to tolerate food or drink, chest pain, difficulty breathing, any new symptom that concerns you. Call 911 with any medical emergency. Use meclizine for dizziness. Try to eat more frequent meals with less carbohydrates. Prescriptions: New meclizine 25 mg tablet 25 mg PO TID PRN (Reason: dizziness) Qty: 20 0RF No Action aspirin 81 mg tablet,delayed release (DR/EC) 81 mg PO DAILY Qty: 30 5RF sucralfate 100 mg/mL suspension 10 ml PO BID Qty: 1000 2RF metoprolol succinate 25 mg tablet extended release 24 hr 25 mg PO DAILY Qty: 90 3RF rosuvastatin 5 mg tablet 5 mg PO DAILY Qty: 30 5RF Rx Instructions: New cholesterol medication ascorbic acid (vitamin C) 500 mg tablet 1,000 mg PO DAILY Qty: 180 1RF Trulance 3 mg tablet 3 mg PO DAILY Qty: 30 3RF thiamine HCl (vitamin B1) 100 mg tablet 100 mg PO DAILY Qty: 90 1RF azathioprine 50 mg tablet 75 mg PO DAILY Qty: 60 1RF lorazepam 0.5 mg tablet 0.5 mg PO QID PRN (Reason: Anxiety) ondansetron 4 mg tablet,disintegrating 4 mg PO Q6-8H PRN (Reason: Nausea) oxycodone 5 mg tablet 5 mg PO Q4-6H PRN (Reason: Pain) (DME) walker Misc See Rx Instructions .ROUTE .MEDSUPPLY Qty: 1 0RF Rx Instructions: As directed Jardiance 25 mg Tablet 25 mg PO DAILY acetaminophen [Tylenol Extra Strength] 500 mg tablet 500 mg PO Q6H PRN (Reason: pain) Qty: 30 0RF benzonatate 100 mg capsule 100 mg PO TID PRN (Reason: cough) Qty: 20 0RF fluticasone propionate 50 mcg/actuation spray,suspension 50 mcg intranasal DAILY PRN (Reason: Nasal Congestion) albuterol sulfate 90 mcg/actuation HFA aerosol inhaler 90 mcg inhalation BID PRN (Reason: Shortness Of Breath) lisinopril 2.5 mg tablet 2.5 mg PO DAILY (DME) FreeStyle Lite Strips Strip See Rx Instructions .ROUTE TID Qty: 10 Rx Instructions: As directed metformin 500 mg tablet extended release 24 hr 1,000 mg PO BID cholecalciferol (vitamin D3) 25 mcg (1,000 unit) tablet 25 mcg PO DAILY nortriptyline 10 mg capsule 10 mg PO BEDTIME alcohol swabs [Alcohol Prep Pads] Pads, Medicated 1 pad topical TID simethicone [Gas Relief (simethicone)] 125 mg capsule 125 mg PO BID-QID PRN (Reason: abdominal distention) Qty: 20 0RF (DME) lancets [TRUEplus Lancets] 33 gauge misc See Rx Instructions .ROUTE QAM Qty: 100 Rx Instructions: As directed insulin degludec [Tresiba FlexTouch U-100] 100 unit/mL (3 mL) insulin pen 10 unit subcut DAILY 30 Days Qty: 3 11RF Glucerna 1.5 Shaheen 0.08-1.5 gram-kcal/mL liquid 1 ea PO BID Qty: 8000 3RF ursodiol 500 mg tablet 500 mg PO BID Qty: 60 2RF esomeprazole magnesium 40 mg capsule,delayed release(DR/EC) 40 mg PO BID Qty: 60 3RF (DME) pen needle, diabetic 32 gauge x 5/32 needle See Rx Instructions .ROUTE .MEDSUPPLY Qty: 100 3RF Rx Instructions: twice daily (DME) FreeStyle Leobadro 3 Plus Sensor Device See Rx Instructions .ROUTE .MEDSUPPLY Qty: 6 3RF Rx Instructions: every 15 days (DME) FreeStyle Leobardo 3 Jasper Misc See Rx Instructions .ROUTE .MEDSUPPLY Qty: 1 0RF Rx Instructions: As directed for use with freestyle 3 sensors hydroxychloroquine 200 mg tablet 200 mg PO BID Qty: 180 1RF insulin aspart U-100 [Novolog FlexPen U-100 Insulin] 100 unit/mL (3 mL) insulin pen 8 unit subcut DAILY 30 Days Qty: 3 6RF Rx Instructions: with breakfast Print Language: Belizean
[2025-01-17 19:40] VITALS: BP 162/73; PULSE 76; RESP 20; TEMP 36.1; O2SAT 99; BMI 25.3
--- NOTE | 2025-01-17 19:43 | ECG_ITS ---
Test Reason : WEAKNESS Blood Pressure : */* mmHG Vent. Rate : 76 BPM Atrial Rate : 76 BPM P-R Int : 166 ms QRS Dur : 72 ms QT Int : 364 ms P-R-T Axes : 55 13 45 degrees QTcB Int : 409 ms Normal sinus rhythm Normal ECG When compared with ECG of 05-Oct-2024 06:27, No significant change was found Referred By: Herman Lindsey Electronically Signed By: CATARINA ELLER
[2025-01-17 20:12] LABS: MANUAL DIFF FLAG NO
[2025-01-17 20:14] LABS: Hematocrit 35.7 % (37.0-47.0); Hemoglobin 11.5 g/dl (12.0-16.0); Imm Gran Abs Auto 0.02 X10*3/uL (0.00-0.03); Imm Gran Pct Auto 0.4 % (0.0-0.4); Lymphocytes Absolute Auto 1.2 X10*3/uL (1.2-4.9); Mean Corpuscular HGB Conc 32.2 g/dl (31.0-35.0); Mean Corpuscular Hemoglobin 27.9 pg (27.0-33.0); Mean Corpuscular Volume 86.7 fL (80.0-98.0); NRBC Abs Auto 0.000 X10*3/uL (0.0-0.012); NRBC Pct Auto 0.0 /100WBC (0.0-0.2); Platelet Count 178 X10*3/uL (160-400); Red Blood Count 4.12 X10*6/uL (4.20-5.50); White Blood Count 4.7 X10*3/uL (4.8-10.8)
[2025-01-17 20:15] VITALS: BP 123/48; PULSE 80; RESP 16; TEMP 36.9; O2SAT 97
[2025-01-17 20:17] VITALS: BP 134/58; PULSE 75
[2025-01-17 20:19] VITALS: BP 148/66; BP 151/64; PULSE 85; PULSE 86
[2025-01-17 20:28] LABS: Alanine Aminotransferase 27 U/L (0-31); Albumin Level 4.1 g/dL (3.5-5.0); Alkaline Phosphatase 151 U/L (39-117); Anion Gap 17 (12-20); Aspartate Amino Transferase 40 U/L (5-31); Blood Urea Nitrogen 13 mg/dL (9-16); Calcium 8.9 mg/dL (8.4-10.2); Carbon Dioxide 23 mmol/L (22-29); Chloride 102 mmol/L (96-108); Creatinine Clr Calc Pharmacy 56.9; Estimated Glomerular Filt Rate > 60; Potassium 3.7 mmol/L (3.3-5.1); Sodium 138 mmol/L (135-145); Total Protein 9.4 g/dL (6.5-8.0)
[2025-01-17 20:31] LABS: Appearance Urine Clear; Glucose Urine UA >=1000 mg/dL (Negative); PH 5.5 (5.0-9.0); Specific Gravity - Urine 1.010 (1.005-1.025); UMIC TRIGGER UACC YES
[2025-01-17 20:33] LABS: COVID-19 Test Negative (Negative); IDNOW Serial# 6674DD1D
[2025-01-17 20:36] LABS: Troponin-I High Sensitivity < 2.7 ng/L (<3.5-17.0)
[2025-01-17 22:57] VITALS: BP 128/62; PULSE 70; RESP 15; TEMP 36.7; O2SAT 98
[2025-01-18 00:10] VITALS: BP 128/62; PULSE 70; RESP 15; TEMP 36.7; O2SAT 98
== END 2025-01-18 00:11 | disposition home or self-care (01) ==
PROVIDERS: Physician Assistant; Emergency Provider Emergency Medicine; PCP Internal Medicine
DX: R42 Dizziness and giddiness (principal); B34.9 Viral infection, unspecified; E11.9 Type 2 diabetes mellitus without complications; Z79.4 Long term (current) use of insulin; M79.7 Fibromyalgia; R07.9 Chest pain, unspecified
CPT/HCPCS: 80053; 81001; 84484; 85025; 87635; 93005; 99283; 99285

== ENCOUNTER → 2025-01-17 19:43 | Outpatient (BNV) | payer MEDICARE, MEDICAID, SELFPAY ==
[2024-07-15 09:17] VITALS: BP 128/60; BMI 27.1
== END ==
PROVIDERS: Emergency Provider Emergency Medicine; PCP Internal Medicine; Visit Provider Internal Medicine
DX: R53.1 Weakness (principal)
CPT/HCPCS: 93010

== ENCOUNTER 2025-02-10 09:48 | Outpatient (AMB) | payer MEDICARE, MEDICAID, SELFPAY ==
[2024-07-15 09:17] VITALS: BP 128/60; BMI 27.1
--- NOTE | 2025-02-10 09:58 | A.OFFVIS_ITS ---
Vital Signs 02/10/25 10:04 Height 5 ft 2 in Weight 138 lb 0.15 oz BMI 25.2 BP 124/60 Blood Pressure Location Lt brachial Position Sitting Pulse 87 Pulse Source Pulse Oximeter Pulse Oximetry (%) 97 Oxygen Delivery Method Room Air Intake Visit Reasons: SLE Intake Note: Patient presents for SLE follow up. Allergies duloxetine (From CYMBALTA) Allergy (Intermediate, Verified 02/10/25 10:03) SHAKINESS Medication List - Last Reconciled 02/10/25 by Marcelina Bourne MD acetaminophen (Tylenol Extra Strength) 500 mg PO Q6H PRN albuterol sulfate 90 mcg/actuation 90 mcg inhalation BID PRN alcohol swabs (Alcohol Prep Pads) 1 pad topical TID ascorbic acid (vitamin C) 1,000 mg (2 x 500 mg) PO DAILY aspirin 81 mg PO DAILY azathioprine 75 mg (1.5 x 50 mg) PO DAILY benzonatate 100 mg PO TID PRN blood sugar diagnostic (FreeStyle Lite Strips) As directed cholecalciferol (vitamin D3) 25 mcg PO DAILY empagliflozin (Jardiance) 25 mg PO DAILY esomeprazole magnesium 40 mg PO BID fluticasone propionate 50 mcg/actuation 50 mcg intranasal DAILY PRN FreeStyle Leobardo 3 Plus Sensor (blood-glucose sensor) every 15 days NS FreeStyle Leobardo 3 [place] (blood-glucose,vessel builder,cont) As directed for use with freestyle 3 sensors NS hydroxychloroquine 200 mg PO BID insulin aspart U-100 (Novolog FlexPen U-100 Insulin aspart) 8 units (0.08 mL) subcut DAILY 30 days insulin degludec (Tresiba FlexTouch U-100 insulin) 10 units (0.1 mL) subcut DAILY 30 days lancets (TRUEplus Lancets) As directed lisinopril 2.5 mg PO DAILY lorazepam 0.5 mg PO QID PRN meclizine 25 mg PO TID PRN metformin ER 1,000 mg PO BID metoprolol succinate ER 25 mg PO DAILY nortriptyline 10 mg PO BEDTIME nut.tx.gluc intol,lf,soy-fiber 0.08-1.5 gram-kcal/mL (Glucerna 1.5 Shaheen) 1 ea PO BID ondansetron 4 mg PO Q6-8H PRN oxycodone 5 mg PO Q4-6H PRN pen needle, diabetic twice daily plecanatide (Trulance) 3 mg PO DAILY rosuvastatin 5 mg PO DAILY simethicone (Gas Relief (simethicone)) 125 mg PO BID-QID PRN sucralfate 10 mL PO BID thiamine HCl (vitamin B1) 100 mg PO DAILY ursodiol 500 mg PO BID walker As directed HPI Comments Details: Patient is a 64-year-old female with diabetes, hypertension, hyperlipidemia complicated by coronary artery disease status post cardiac catheterization with stenting, GERD, autoimmune hepatitis, lupus and polyarticular osteoarthritis here today for follow up Interval History: Patient last seen 10/22/24 with me - On Azathioprine 75mg daily, Hydroxychloroquine 200mg bid, prednisone (per GI) - Urgent visit for left hand pain - received left ring finger trigger finger injection Today, - On Azathioprine 75mg daily, Hydroxychloroquine 200mg bid - Left trigger finger is better - Now complaining of left arm pain. Got C spine MRI. Going to follow up with neurology (had spine surgery in 2008) - Also complaining of bilateral knee pain - No ulcers in the nose or in the mouth - No rashes Rheumatologic History: dx ( autoimmune hepatitis, arthralgias ++ dsDNA intermittently low C3 and C4 +++ACL IgM ++ASMA) Current Rheumatology Medication(s): Azathioprine 75 mg daily Hydroxychloroquine 200mg bid PFSH Medical History Trigger finger, left ring finger Cirrhosis Antiphospholipid antibody syndrome Leg pain, right Abdominal bloating Lupus Arthritis POOL (dyspnea on exertion) Gallstones Cirrhosis Nonalcoholic steatohepatitis (SHARMA) Autoimmune hepatitis High blood pressure Fibromyalgia Diabetes Surgical History History of esophagogastroduodenoscopy (EGD) History of heart artery stent Hx of cholecystectomy Hx of endoscopy History of colonoscopy History of shoulder surgery History of cataract surgery (2010) History of repair of right rotator cuff (08/2011) History of cervical discectomy (07/2009) History of carpal tunnel release Family History Father History of diabetes mellitus, type II History of hypertension History of heart bypass surgery Mother History of diabetes mellitus, type II Brother History of gout Paternal Uncle Cancer Paternal Aunt Cancer Social History (Reviewed 02/10/25 @ 10:03 by Tosha Eduardo [facility]) Household Members: None Housing: Apartment Are you a primary clinical care coordinator to a significant other at home: No 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 have visiting nurse or other home services: No Alcohol intake: never Patient Tobacco Use Status: Never used Tobacco service: No Current occupational status: disabled Review of Systems Const Details: Review of Systems Constitutional: Denies fever, chills, weight loss ENT: Denies vision changes, eye pain or eye redness, dental caries, dry mouth GI: Denies nausea, vomiting, diarrhea, abdominal pain, change in BM Pulm: Denies SOB, POOL, hemoptysis, wheezing Cards: Denies chest pain, palpitations Skin: Denies Raynaud's, rash, nail changes, photosensitivity, 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 Well appearing and in no apparent painful distress MSK Hands * Right Hand: Able to make a fist. No swelling or tenderness to palpation of the MCPs, PIPs or DIPs. * Left Hand: Able to make a fist. No swelling or tenderness to palpation of the MCPs, PIPs or DIPs. * Herbedens nodes noted bilaterally Wrists * Right Wrist: Full ROM to flexion and extension. No swelling or TTP * Left Wrist: Full ROM to flexion and extension. No swelling or TTP Elbows * Right Elbow: Full ROM. No swelling or TTP. No TTP of the medial epicondyle. No TTP of the lateral epicondyle * Left Elbow: Full ROM. No swelling or TTP. No TTP of the medial epicondyle. No TTP of the lateral epicondyle Shoulders * Right shoulder: Full ROM. No swelling noted. No TTP of the AC joint. TTP of the subacromial bursa. No TTP of the posterior shoulder * Left shoulder: Decreased ROM. No swelling noted. No TTP of the AC joint. TTP of the subacromial bursa. No TTP of the posterior shoulder Knees * Right knee: Full ROM. No swelling noted. No TTP of the knee joint line. No TTP of pes anserine bursa * Left knee: Full ROM. No swelling noted. No TTP of the knee joint line. No TTP of pes anserine bursa. * Crepitations felt bilaterally Ankles * Right ankle: Good ankle dorsiflexion and plantar flexion. No swelling. No TTP of the ankle joint * Left ankle: Good ankle dorsiflexion and plantar flexion. No swelling. No TTP of the ankle joint Feet * Right foot: Negative squeeze test * Left foot: Negative squeeze test Tender points? * No tenderness to palpation of the bilateral trapezius, supraspinatus, anterior costochondral junctions, bilateral suboccipital muscle insertions SKIN No rashes Vital Signs: Last Vital Signs Pulse 87 02/10/25 10:04 BP 124/60 02/10/25 10:04 Pulse Ox 97 02/10/25 10:04 Oxygen Delivery Method Room Air 02/10/25 10:04 BMI result Body Mass Index 25.2 Results Reviewed Results Reviewed: Laboratory Tests 01/17/25 20:02 WBC 4.7 L RBC 4.12 L Hgb 11.5 L Hct 35.7 L Plt Count 178 Sodium 138 Potassium 3.7 Chloride 102 Carbon Dioxide 23 BUN 13 Creatinine 0.87 AST 40 H ALT 27 Laboratory Tests 09/17/24 10:17 Double Strand DNA Ab 61 H Complement C3 116 Complement C4 9 L Laboratory Tests 09/17/24 01/17/25 10:15 20:22 Urine Color Yellow Urine Protein Negative U Random Total Protein < 7 Assessment & Plan Assessment & Plan (1) Lupus: Code(s): M32.9 - Systemic lupus erythematosus, unspecified Category: Medical Plan: #Lupus Patient is a 64-year-old female with autoimmune hepatitis complicated by cirrhosis and presumed lupus here today for follow up. It was difficult to say whether or not this patient truly has lupus. She for sure has autoimmune hepatitis which in and of itself can have low complements and positive double-stranded DNA. She appears to be stable at this time Complaints are related to mechanical/degenerative disease Plan - Plaquenil 200mg bid - Continue azathioprine from GI - Continue prednisone as per GI - RTC 6 months - Labs before visit: CBC, CMP, ESR, CRP, C3, C4, dsDNA, UA, UPC Yaron Dunham, Max C, Donis A, Justin AW. Association of autoimmune he patitis and systemic lupus erythematodes: a case series and review of the literature. World J Gastroenterol. 2014 Jan 21;20(35):98834-3. doi: 10.3748/[id number]. PMID: [id number]; PMCID: [id number]. 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 Category: Medical Plan: #Long-term Use of Hydroxychloroquine Discussed with patient the risks and benefits of hydroxychloroquine in managing the rheumatic condition Benefits include: - Reduced pain, reduce mortality, maintenance of remission and reduction of flares Risks include: - GI upset, skin hyperpigmentation, retinal toxicity (especially after more than 5 years of use), myopathy Advised yearly ophthalmology visits Plan I spent 30 minutes reviewing the record and labs, taking a history, examining the patient, discussing the treatment plan, ordering diagnostic work up and documenting in the medical record Orders: Orders Complete Blood Count Auto Diff 6 Months M32.9 - Systemic lupus erythematosus, unspecified Comprehensive Met. Panel 6 Months M32.9 - Systemic lupus erythematosus, unspecified Complement C3 6 Months M32.9 - Systemic lupus erythematosus, unspecified Complement C4 6 Months M32.9 - Systemic lupus erythematosus, unspecified Anti DNA DS Antibody 6 Months M32.9 - Systemic lupus erythematosus, unspecified C Reactive Protein 6 Months M32.9 - Systemic lupus erythematosus, unspecified Erythrocyte Sedimentation Rate 6 Months M32.9 - Systemic lupus erythematosus, unspecified UA ClnCatch+Micro w/rflx Cult 6 Months M32.9 - Systemic lupus erythematosus, unspecified Protein Creatinine Ratio, Ur 6 Months M32.9 - Systemic lupus erythematosus, unspecified Coding Level of Care Code Est Pt Level 4 (46796) Complex EM visit Add On G2211 Diagnoses Lupus M32.9 Long-term use of hydroxychloroquine Z79.899
[2025-02-10 10:04] VITALS: BP 124/60; PULSE 87; O2SAT 97; BMI 25.2
--- OUTSIDE RECORDS SUMMARY | 2025-02-10 11:38 | XMS_ITS | Encounter Summary ---
Author Organization [employer] Address 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
--- OUTSIDE RECORDS SUMMARY | 2025-02-10 11:38 | XMS_ITS | Encounter Summary ---
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
--- OUTSIDE RECORDS SUMMARY | 2025-02-10 11:38 | XMS_ITS | Clinical Summary ---
Author Organization [facility] Address [address] [address] Phone Care Team Providers Care Nail Technician Name Role Phone Eduardo Garcia MD Unavailable Leonor Rose MD Unavailable [phone] Familia Contreras MD Unavailable Jeyson Hu MD [...] 0.5 mg by mouth daily as needed. Active GAS RELIEF EXTRA STRENGTH 125 mg Cap Take 125 mg by mouth daily as needed. Active nortriptyline (PAMELOR) 10 MG capsule Take 10 mg by mouth nightly at bedtime as needed. Active lansoprazole (PREVACID) 30 MG capsule Take 30 mg by mouth 2 (two) times a day. Active sucralfate (CARAFATE) 100 mg/mL suspension Take 100 mg by mouth 2 (two) times a day. Active ascorbic mtor-ltojesqr-adm (EMERGEN-C) 1,000 mg PwEP Take 1 packet by mouth every other day. Active naloxone (NARCAN) 4 mg/actuation nasal sprayIndications:Chroni c, continuous use of opioids 1 spray by Intranasal route once for 1 dose. After one (1) spray, call 911. If no response in 3-5 minutes, repeat with second nasal spray. 1 each 1 Active VENTOLIN HFA 90 mcg/actuation inhalerIndications:Bron chospasm INHALE 2 PUFFS EVERY 4 HOURS NEEDED FOR WHEEZING 18 g 3 Active ASCORBIC ACID WITH CARLA HIPS 500 MG tablet TAKE 2 TABLETS (1,000 MG) BY MOUTH ONCE DAILY Active thiamine (VITAMIN B-1) 100 MG tablet Take 100 mg by mouth daily. Active DICLOFENAC SODIUM TP Apply 1 Application topically daily as needed. Active azaTHIOprine (IMURAN) 50 mg tablet Take 75 mg by mouth every morning. Active blood-glucose Misc meter by Miscellaneous route as needed. Glucose meter Freestyle lite 1 each Active TRUEPLUS LANCETS 33 gauge MiscIndications:Type 2 diabetes mellitus without complications TEST BLOOD SUGAR THREE TIMES DAILY BEFORE MEALS 100 each 5 Active JARDIANCE 25 mg tabletIndications:Type 2 diabetes mellitus without complications take 1 tablet by mouth every day 30 tablet 11 Active cholecalciferol (VITAMIN D3) 25 MCG (1,000 unit) tablet take 1 tablet by mouth every day 30 tablet Active metoprolol succinate (TOPROL-XL) 25 MG 24 hr tablet Take 25 mg by mouth daily. Active rosuvastatin (CRESTOR) 5 MG tablet Take 5 mg by mouth daily. Active blood sugar diagnostic (FREESTYLE LITE) Strp stripsIndications:Type 2 diabetes mellitus without complications Inject 1 each under the skin every morning. USE DIRECTED TO TEST BLOOD SUGAR EVERY DAY 100 strip 11 Active lancets (TRUEPLUS LANCETS) 33 gauge MiscIndications:Type 2 diabetes mellitus without complication Inject 1 each into the skin every morning. 100 each Active fluticasone propionate (FLONASE) 50 mcg/actuation nasal sprayIndications:Allerg ic rhinitis due to other allergic trigger, unspecified seasonality 2 sprays by Nasal route daily as needed. 16 g 3 Active metFORMIN (GLUCOPHAGE-XR) 500 MG 24 hr tabletIndications:Type 2 diabetes mellitus without complications TAKE 2 TABLETS BY MOUTH TWICE DAILY 120 tablet Active lisinopril (PRINIVIL,ZESTRIL) 2.5 MG tabletIndications:Hyper tension TAKE 1 TABLET BY MOUTH EVERY DAY 30 tablet Active aspirin 81 MG EC tablet TAKE 1 TABLET BY MOUTH DAILY 90 tablet 3 Active cyclobenzaprine (FLEXERIL) 5 MG tablet Take 1 tablet (5 mg total) by mouth 3 (three) times a day as needed (muscle spasm). 30 tablet Active TRULANCE 3 mg tablet Take 1 tablet by mouth every morning. Active BD ULTRA-FINE LANIE PEN NEEDLE 32 gauge x 5/32 Ndle 1 each nightly at bedtime. Active NOVOLOG FLEXPEN U-100 INSULIN 100 unit/mL (3 mL) flexpen Inject 4 Units under the skin daily with breakfast. Active predniSONE (DELTASONE) 20 MG tablet Take 1 tablet by mouth every morning. Active ondansetron (ZOFRAN-ODT) 4 MG disintegrating tabletIndications:Nause a DISSOLVE 1 TABLET ON TONGUE EVERY 8 HOURS NEEDED FOR NAUSEA 30 tablet 3 Active TRESIBA FLEXTOUCH U-100 injection pen Inject 10 Units under the skin nightly at bedtime. Active ALCOHOL PREP PADS PadMIndications:Type 2 diabetes mellitus without complications USE THREE TIMES DAILY 100 each 11 Active VENTOLIN HFA 90 mcg/actuation inhaler INHALE 2 PUFFS BY MOUTH EVERY 6 HOURS NEEDED FOR WHEEZING OR SHORTNESS OF BREATH 18 g 3 08/15/2 025 Active oxyCODONE 5 MG immediate release tabletIndications:Bilat eral low back pain with right-sided sciatica Take 1 tablet (5 mg total) by mouth every 4 (four) hours as needed (low back pain with righ sided sciatica). partial fill okay upon patient request No more than 5 a day 140 tablet 025 2024 Active linaCLOtide (LINZESS) 290 mcg Cap capsuleIndications:Cons tipation, unspecified constipation type Take 1 capsule (290 mcg total) by mouth daily. 90 capsule 3 023 2024 Disconti nued(No longer taking) atorvastatin (LIPITOR) 20 MG tabletIndications:Ather osclerosis of quechan coronary artery of quechan heart without angina pectoris,Type 2 diabetes mellitus without complication, without long-term current use of insulin,Pure hypercholesterolemia take 1 tablet by mouth at bedtime 90 tablet 3 024 2024 Disconti nued(No longer taking) doxycycline monohydrate (MONODOX) 100 MG capsule Take 1 capsule (100 mg total) by mouth 2 (two) times a day. 14 capsule 024 2024 Disconti nued(No longer taking) glipiZIDE (GLUCOTROL) 10 MG tabletIndications:Type 2 diabetes mellitus without complications take 1 tablet by mouth once daily 90 tablet 3 024 2024 Disconti nued(No longer taking) LANTUS SOLOSTAR U-100 INSULIN 100 unit/mL (3 mL) InPn injection pen Inject 8 Units under the skin nightly at bedtime. 025 2024 Disconti nued(No longer taking) hydroxychloroquine (PLAQUENIL) 200 mg tablet Take 1 tablet by mouth 2 (two) times a day. 025 2024 Disconti nued(No longer taking) oxyCODONE 5 MG immediate release tabletIndications:Bilat eral low back pain with right-sided sciatica Take 1 tablet (5 mg total) by mouth every 4 (four) hours as needed (low back pain with righ sided sciatica). partial fill okay upon patient request No more than 5 a day 140 tablet 025 2024 Carlota schuler(Reo rder) Active Problems Problem Noted Date Diagnosed Date Shakiness 01/21/2025 Assessment & Plan (01/21/2025 11:57 AM EDT): She notes that she has been experiencing shakiness, dizziness, and overall feeling of her blood sugar being low since Saturday. She did recently have a change in her insulin levels for which her Humalog was increased to 16 units prior to breakfast and her Tresiba 10 units nightly. She did note in the ER that she was having difficulty adjusting to these changes. She does have a CGM and notes that her blood sugar readings have been normal/slightly elevated, no hypoglycemic episodes. Blood sugar in the ER was elevated but at patient's baseline. Will obtain a CMP to further assess. Advised that she should contact her terrazzo journeyman regarding her difficulties with her insulin levels. Given her shakiness symptoms, will also check for other electrolytes, kidney function and liver function, as well as a CBC and iron panel to assess for any underlying anemia. She is afebrile and hemodynamically stable in the office today. Physical exam was nonconcerning. She does have a history of a cardiac stent and does follow with cardiology with an appointment next month. I advised that she should contact her farmworker brooder farm regarding the symptoms as well so that everyone is on the same page. Would recommend potentially doing a stress test to assess for any underlying cardiac reasons that could be causing her symptoms. 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 Liu - pt has gastric emptying study- see scan dated 01/03/24 normal 4 hour study Assessment & Plan (01/21/2025 11:57 AM EDT): History of GERD and gastritis, she is supposed to be taking Carafate 100 mg twice daily as well as Prevacid 30 mg twice daily, but notes that she only takes the Prevacid once daily in the Carafate as needed. She has been noting a burning sensation substernally, I suspect that this is likely due to reflux and gastritis and advised that she should take the Carafate and Prevacid as prescribed. Abnormal liver function tests 06/06/2017 Type 2 diabetes mellitus without complications 0 06/06/2017 Hypertension 06/06/2017 Autoimmune hepatitis 12/25/2016 Overview (07/25/2018): dr roman Encounters Date Type Department Care Team Description 02/01/2025 Refill [facility] [address] [facility] [place] [address] Eduardo Garcia MD Medication Refill (CSRP) 01/22/2025 Telephone [facility] Internal Medicine [address] [facility] [place] [address] Eduardo Garcia MD Results 01/21/2025 11:47 AM EDT - 01/21/2025 11:59 PM EDT Hospital Encounter [facility] [address] [facility] [place] [address] Renetta Enriquez PA-C Discharge Disposition: Home or Self Care 01/21/2025 11:20 AM EDT Office Visit [facility] Internal [facility] [address] [facility] [place] [address] Renetta Enriquez PA-C Shakiness (Primary Dx); Gastroesophageal reflux disease, unspecified whether esophagitis present 01/21/2025 Telephone [facility] Internal [facility] [address] [place] [address] Eduardo Garcia MD Follow-up 01/12/2025 Orders Only [facility] Internal [facility] [address] [place] [address] Chai Gold MD 01/08/2025 Refill [facility] Internal [facility] [address] [place] [address] Eduardo Garcia MD Medication Refill 01/04/2025 Refill [facility] Internal [facility] [address] [place] [address] Eduardo Garcia MD Medication Refill (CSRP) 12/08/2024 Orders Only [facility] Internal [facility] [address] [place] [address] Chai Gold MD 12/03/2024 Refill [facility] Internal [facility] [address] [place] [address] Eduardo Garcia MD Medication Refill (CSRP) 11/22/2024 Refill [facility] Internal [facility] [address] [place] [address] Kavon Fitzgerald MD Medication Refill 11/13/2024 10:30 AM EDT Office Visit [facility] Internal Medicine [address] [facility] [place] [address] Eduardo Garcia MD Need for pneumococcal 20-valent conjugate vaccination (Primary Dx) 11/11/2024 Orders Only [facility] Internal Medicine [address] [facility] [place] [address] Provider, MD Cahi from Last 3 Months Immunizations Immunization Administration [...] high school, GED, job training, learning the Occitan language, technical skills, or developing parenting skills)? [...] your housing situation today? I have fatou sing 02/24/2024 How many times have you move [...] Sign Reading Time Taken Comments Blood Pressure 122/64 01/21/2025 11:13 AM EDT Pulse 75 01/21/2025 11:13 AM EDT Temperature 36.3 C (97.3 F) 01/21/2025 11:13 AM EDT Respiratory Rate 16 01/21/2025 11:13 AM EDT Oxygen Saturation 98% 01/21/2025 11:13 AM EDT Inhaled Oxygen Concentration - - Weight 61.7 kg (136 lb) 01/21/2025 11:13 AM EDT Height 154.4 cm (5' 0.79 ) 01/21/2025 11:13 AM E DT Body Mass Index 25.88 01/21/2025 11:13 AM EDT Plan of Treatment Upcoming Encounters Date Type Department Care Team (Late st Contact Info) Description 02/15/2025 3:30 PM EDT Office Visit [facility] Internal Medicine [address] [place] [address] Eduardo Garcia MD [address] [place] [address] Sheron Valerio [address] [place] [id number] [email or web address] Health Maintenance Due Date Last Done Comments HEPATITIS A VACCINES (1 of 2 - Risk 2-dose series) 09/03/1979 ZOSTER VACCINES (1 of 2) 09/03/1979 COLOGUARD 2005 FIT TEST 2005 FOBT 2005 SIGMOIDOSCOPY 2005 VIRTUAL COLONOSCOPY 2005 RSV VACCINE (1 - Risk 60-74 years 1-dose series) 2020 Adult Td,Tdap Booster 11/17/2022 11/17/2012, 001 INFLUENZA VACCINE (#1) 2024 , 02/21/2023, 02/21/2023, Additional history exists HEMOGLOBIN A1C 01/11/2025 07/14/2024, 02/25, 03/20/2024, Additional history exists COVID-19 VACCINE ( season) 2025 05/25/2022, 06/14/2021, 09/22/2020, Additional history exists LIPID PANEL 07/14/2025 07/14/2024, 06/27, 07/14/2024, Additional history exists BLOOD PRESSURE 07/24/2025 01/21/2025 DEPRESSION SCREENING 2025 2024 DIABETIC EYE EXAM 09/16/2025 09/16/2024, , 03/05/2024, Additional history exists ALKALINE PHOSPHATASE LEVEL 01/21/202601/21, 09/30/2024, 09/17/2024, Additional history exists CREATININE LEVEL 01/21/2026 01/21/2025, 11/2024, 09/17/2024, Additional history exists POTASSIUM LEVEL 01/21/2026 01/21/2025, 05/0 11/2024, 09/17/2024, Additional history exists MAMMOGRAM 11/24/2026 11/24/2024, 10/26, 11/15/2022, Additional history exists PAP SMEAR 02/07/2027 02/07/2022, 05/11/2016 COLONOSCOPY 05/03/2031 05/03/2021, 09/25/2012 COLORECTAL CANCER SCREENING 05/03/2031 HIV ONE-TIME SCREENING (18-65 YEARS) Completed 02/12/2018 HEPATITIS C SCREENING Completed 05/28/2024, 019 PNEUMOCOCCAL VACCINES (50+ years) Completed 11/13/2024, 08/21/2011 SMOKING STATUS SCREENING (Once After 26 Yrs) Completed 01/21/2025 HIB VACCINES Aged Out No longer eligi ble based on patient's age to complete this topic MENINGOCOCCAL VACCINES (ACWY) Aged Out No longer eligible based on patient's age to complete this topic MENINGOCOCCAL VACCINES (B) Aged Out N o longer eligible based on patient's age to complete this topic Medical Devices Not on file Procedures Procedure Name Priority Date/Time Associated Diagnosis Comments COMPREHENSIVE METABOLIC PANEL Routine 01/21/2025 11:47 AM EDT Shakiness CBC AND DIFFERENTIAL Routine 01/21/2025 11:47 AM EDT Shakiness FERRITIN Routine 01/21/2025 11:47 AM EDT Shakiness IRON AND IRON BINDING CAPACITY Routine 01/21/2025 11:47 AM EDT Shakiness OUTSIDE US ABDOMEN REPORT ONLY Routine 01/11/2025 9:46 AM EDT MAMMOGRAPHY Routine 11/24/2024 9:32 AM EDT DIABETES EYE EXAM FOR RESULT ENTRY ONLY Routine 09/16/2024 2:00 PM EDT OUTSIDE HEMOGLOBIN A1C Routine 07/14/2024 OUTSIDE HDL Routine 07/14/2024 OUTSIDE HEPATITIS C VIRUS SCREENING Routine 05/28/2024 PAP TEST Routine 02/07/2022 COLONOSCOPY FOR RESULT ENTRY ONLY Routine 05/03/2021 from Last 3 Months or Most Recently Relevant to Health Maintenance Results * (ABNORMAL) Comprehensive metabolic panel (01/21/2025 11:47 AM EDT) SODIUM 137 133 - 146 mmol/L [facility] POTASSIUM 4.4 3.3 - 5.1 mmol/L [facility] CHLORIDE 100 96 - 108 mmol/L [facility] CO2 23 21 - 35 mmol/L [facility] BUN 12 6 - 19 mg/dL [facility] CREATININE 0.50 0.5 - 1.5 mg/dL [facility] GLUCOSE 130(H) 70 - 99 mg/dL [facility] ALBUMIN 4.2 3.9 - 4.8 g/dL [facility] TOTAL PROTEIN 9.9(H) 6.5 - 8.0 g/dL [facility] CALCIUM 9.8 8.4 - 10.3 mg/dL [facility] ALKALINE PHOSPHATASE 148(H) 39 - 117 U/L [facility] TOTAL BILIRUBIN 0.6 0.0 - 1.2 mg/dL [facility] AST 35 0 - 37 U/L [facility] ALT 21 0 - 40 U/L [facility] GLOBULIN 5.7(H) 1 - 4.8 g/dL [facility] EGFR 105 >59 mL/min/1.7 3m2 [facility] Comment:Estimated glomerular filtration rate calculated using the CKD-EPI refit equation. ANION GAP 18 10 - 20 mmol/L [facility] Blood 01/21/2025 11:4 7 AM EDT 01/21/2025 11:52 AM EDT [facility] LAB BLOOD ORDERABLES Final R esult Performing Organization Address City/[facility]/ZIP Co de Phone Number [address] [address] * (ABNORMAL) Iron and iron binding capacity (01/21/2025 11:47 AM EDT) IRON 42 30 - 160 ug/dL [facility] IRON BINDING CAPACITY 415 228 - 428 ug/dL [facility] TRANSFERRIN SATURAT. 10(L) 15 - 50 % [facility] Blood 01/21/2025 11:4 7 AM EDT 01/21/2025 11:52 AM EDT [facility] LAB BLOOD ORDERABLES Final R esult Performing Organization Address City/[facility] Co de Phone Number [address] [address] * (ABNORMAL) CBC and differential (01/21/2025 11:47 AM EDT) WBC 5.97 4.00 - 11.00 K/uL [facility] RBC 4.51 4.00 - 5.20 M/uL [facility] HGB 12.3 12.0 - 16.0 g/dL [facility] HCT 39.9 36.0 - 46.0 % [facility] PLT 200 150 - 450 K/uL [facility] MCV 88.5 80.0 - 100.0 fL [facility] MCH 27.3 27.0 - 31.0 pg [facility] MCHC 30.8(L) 32.0 - 36.0 g/dL [facility] RDW 14.7(H) 11.5 - 14.5 % [facility] MPV 11.1 8.4 - 12.0 fL [facility] NRBC 0.00 0.00 /100 WBCs [facility] ABSOLUTE NRBC 0.00 0.00 K/uL [facility] DIFF METHOD Auto [facility] NEUTS 67.9 48.0 - 76.0 % [facility] LYMPHS 18.1 18.0 - 41.0 % [facility] MONOS 10.4 4.0 - 11.0 % [facility] EOS 1.8 0.0 - 5.0 % [facility] BASOS 1.5 0.0 - 1.5 % [facility] Granulocytes, immature (%) 0.3 0.0 - 0.9 % [facility] ABSOLUTE NEUTS 4.05 1.92 - 7.60 K/uL [facility] ABSOLUTE LYMPHS 1.08 0.72 - 4.10 K/uL [facility] ABSOLUTE MONOS 0.62 0.16 - 1.10 K/uL [facility] ABSOLUTE EOS 0.11 0.00 - 0.50 K/uL [facility] ABSOLUTE BASOS 0.09 0.00 - 0.15 K/uL [facility] Granulocytes, immature 0.02 0.00 - 0.09 K/uL [facility] Blood 01/21/2025 11:4 7 AM EDT 01/21/2025 11:52 AM EDT Renetta Enriquez PA-C LAB BLOOD ORDERABLES Final R esult [facility] [address] [place] [address] * Ferritin (01/21/2025 11:47 AM EDT) FERRITIN 20 13 - 150 ug/L [facility] Blood 01/21/2025 11:4 7 AM EDT 01/21/2025 11:52 AM EDT Renetta Enriquez PA-C LAB BLOOD ORDERABLES Final R esult [facility] [address] [place] [address] * Outside US Abdomen Report Only (01/11/2025 9:46 AM EDT) Result [facility] Historical Provider IMG US ABDOMEN Final Res ult * HM MAMMOGRAPHY FOR RESULT ENTRY ONLY (11/24/2024 9:32 AM EDT) Result [facility] Historical Provider HEALTH MAINTENANCE Final Result * HM DIABETES EYE EXAM FOR RESULT ENTRY ONLY (09/16/2024 2:00 PM EDT) Historical [facility] HEALTH MAINTENANCE Final Result * Outside HbA1c (07/14/2024) Hemoglobin A1c - External 7.8 % Result [facility] Provider LAB BLOOD ORDERABLES Ruth l Result * Outside HDL (07/14/2024) HDL - External 41 40 - 80 mg/dL Result [facility] Provider LAB BLOOD ORDERABLES Ruth l Result * Outside Hepatitis C Virus Screening (05/28/2024) Hepatitis C Screening - External Neg Result [facility] LAB BLOOD ORDERABLES Ruth l Result * Pap Smear (02/07/2022) Historical Provider CYTOLOGY ORDERABLES Final Result * HM COLONOSCOPY FOR RESULT ENTRY ONLY (05/03/2021) Result [facility] Historical Provider HEALTH MAINTENANCE Edited Result - Final from Last 3 Months or Most Recently Relevant to Health Maintenance Insurance MEDICARE PART A [place] [facility] [place] [facility] [place] [facility] Advance Directives For more information, please contact: [phone] (9AM - 5PM [facility], Saturday-Saturday) Documents on File Type Date Recorded Patient Purification Operator Helper Expl anation Healthcare Proxy 08/20/2017 12:27 PM Healt hcare Proxy (In Latvian) Care Teams Nail Technician Relationship Specialty Start Date End Date Eduardo Garcia MD [address] [place] [address] [email or web address] PCP - General Internal Medicine 03/11/20 Eduardo Garcia MD [address] [place] [phone] [email or web address] Insurance Assigned Provider 08/31/23 Leonor Rose MD [address] [place] [id number] Neurosurgeon Neurosurgery 05/22/19 Familia Contreras MD [address] [place] [phone] Physical Therapist Physical Medicine and Rehabilitation 05/22/19 Jeyson Hu MD [address] [place] [phone] Internal Medicine 12/14/19 Jus Liu MD [address] [place] [address] Dr Rm [address] [place] [phone] Gastroenterology 12/29/19 Joe Shah MD [address] [place] [phone] Orthopedic Surgery 04/18/20 Jj Desai MD [address] [place] [address] Dr ELLER [address] [place] [phone] General Surgery 05/31/20 Additional Source Comments The information contained in this document represents components of the legal health record. It is not the complete legal health record.[facility]
--- OUTSIDE RECORDS SUMMARY | 2025-02-10 11:38 | XMS_ITS | Encounter Summary ---
Author Organization [employer] Address [address] [facility] [address] [place] [address] Care Team Providers Care Porcelain Turner Name Role Phone Unavailable Primary Care Provider Unavailabl e Reason for Visit * Reason Onset Date Comments Appointment 11/19/2022 Encounter Details Date Type Department Care Team ([facility] st Contact Info) Description 11/19/2022 Telephone [facility] [address] [place] [address] Alisha Rodas DDS [address] [place], [place] [phone] Appointment Social History Tobacco Use Types Packs/Day [...]
--- OUTSIDE RECORDS SUMMARY | 2025-02-10 11:38 | XMS_ITS | Encounter Summary ---
Author Organization [facility] Address [address] [address] Phone Care Team Providers Care Operations Architect Name Role Phone Eduardo Garcia MD Primary Care Provider [phone] Eduardo Garcia MD Unavailable Leonor Rose MD Unavailable Familia Contreras MD Unavailable [phone] Jeyson Hu MD Unavailable Jus Liu MD Unavailable Eduardo Garcia MD Primary Care Provider Joe Shah MD Unavailable [phone] Jj Desai MD Unavailable Claudia Acevedo RN Unavailable [phone] Encounter Details Date Type Department Care Team (Latest Contact Info) Description 06/26/2019 Transcribe Orders [facility] Specimen Processing [address] [place] [address] Eduardo Garcia MD [address] [place], [place] [phone] [email or web address] Low back pain with right-sided sciatica, unspecified back pain laterality, unspecified chronicity (Primary Dx) Social History Tobacco Use Types Packs/Day Years Used Date Smoking Tobacco: Never Smokeless Tobacco: Never Alcohol Use Standard Drinks/Week Comments No 0 (1 standard drink = 0.6 oz pur e alcohol) Comments No Sex and Gender Information Value Date Recorded Sex Assigned at Not on file Legal Sex Female 9:47 PM EDT Gender Identity Not on file Sexual Orientation Not on file documented as of this encounter Plan of Treatment Upcoming Encounters Date Type Department Care Team (Late st Contact Info) Description 02/15/2025 3:30 PM EDT Office Visit [facility] Internal Medicine [address] [place] [address] Eduardo Garcia MD [address] [place] [address] [email or web address] [employer] [address] [place] [address] [email or web address] documented as of this encounter Results * (ABNORMAL) Toxicology screen, urine (06/26/2019 8:34 PM EST) URINE CANNABINOIDS NONE DETECTED NONE DETECTED [facility] Comment:Cutoff: 50 ng/mL URINE COCAINE METAB NONE DETECTED NONE DETECTED [facility] Comment:Cutoff: 300 ng/mL URINE AMPHETAMINES NONE DETECTED NONE DETECTED [facility] Comment:Cutoff: 1000 ng/mL URINE METHADONE NONE DETECTED NONE DETECTED [facility] Comment:Cutoff: 300 ng/mL URINE OPIATES NONE DETECTED NONE DETECTED [facility] Comment:Cutoff: 300 ng/mL URINE PHENCYCLIDINE NONE DETECTED NONE DETECTED [facility] Comment:Cutoff: 25 ng/mL URINE OXYCODONE Positive(A) NONE DETECTED [facility] Comment:Cutoff: 100 ng/ml URINE BARBITURATES NONE DETECTED NONE DETECTED [facility] Comment:Cutoff: 300 ng/mL URINE BENZODIAZEPINE NONE DETECTED NONE DETECTED [facility] Comment: Cutoff: 300 ng/mL INTERPRETATION FOR TOXICOLOGY PANEL: These results are unconfirmed and should be used for Medical Treatment purposes only. Urine (Urine) 06/26/2019 8:3 4 PM EST 06/26/2019 8:58 PM EST us Eduardo Garcia MD URINE ORDERABLES Final Result [facility] [address] [place] [address] documented in this encounter Visit Diagnoses Diagnosis Low back pain with right-sided sciatica, unspecified back pain laterality, unspecified chronicity- Primary documented in this encounter Additional Health Concerns Infection Onset Date Last Indicated Resolved Time CoV-Risk 05/06/2023 05/06/2023 05/17/2023 1:22 AM EST CoV-Risk 02/18/2024 02/18/2024 02/29/2024 1:22 AM EDT Assessment Noted Time PHQ-2 Depression Total Score: 0 05/21/20 10:14 AM EST documented as of this encounter Care Teams Operations Architect Relationship Specialty Start Date End Date Eduardo Garcia MD [address] [place] [address] PCP - General Internal Medicine 06/21/17 03/10/20 Eduardo Garcia MD [address] [place] [address] PCP - General Internal Medicine 03/11/20 Eduardo Garcia MD [address] [place] [address] Insurance Assigned Provider 08/31/23 Leonor Rose MD [address] [place] [phone] Neurosurgeon Neurosurgery 05/22/19 Familia Contreras MD [address] [place] [phone] Physical Therapist Physical Medicine and Rehabilitation 05/22/19 Jeyson Hu MD [address] [place] [address] Internal Medicine 12/14/19 Jus Liu MD [address] [place] [address] [place] [address] Gastroenterology 12/29/19 Joe Shah MD [address] [place] [phone] Orthopedic Surgery 04/18/20 Jj Desai MD [address] [place] [address] [place] [address] General Surgery 05/31/20 Claudia Acevedo, RN [address] [place] [address] [phone] [email or web address] AgentBeverage Server 05/04/22 05/23/22 documented as of this encounter Additional Source Comments The information contained in this document represents components of the legal health record. It is not the complete legal health record.[facility]
--- OUTSIDE RECORDS SUMMARY | 2025-02-10 11:38 | XMS_ITS | Clinical Summary ---
Author Organization [employer] Address [address] [facility] 7t [place] [address] Care Team Providers Care Lineman Name Role Phone Unavailable Primary Care Provider Unavailabl e Allergies Active Allergy Reactions Criticality Noted Date Comments Duloxetine High 12/13/2017 Other reaction(s): Dystonia Also shaking 2017 Other reaction(s): Dystonia Also shaking 2017 Other reaction(s): SHAKINESS Other reaction(s): Dystonia Also shaking 2017 Duloxetine Hcl 08/27/2022 Meclizine Dizziness 02/05/2022 Medications [...] (SHARMA) 08/13/2023 Atherosclerotic heart diseas e of [place] coronary artery with other forms of angina [...] FIT 1960 FOBT 1960 HIV Screening 1960 SDOH Screening 1960 Sigmoidoscopy 1960 Disability Screening 1960 Diabetes: Foot Exam 1970 Eye Exam 1970 Alcohol/Substance Use Screening 1972 Hepatitis C Screening 1978 Hepatitis A Vaccines (1 of 2 - Risk 2-dose series) 09/03/1979 Zoster Vaccines (1 of 2) 09/03/1979 Pap Smear 1981 Cervical Cancer Screening 1990 HPV/Cotest 1990 Mammogram 2000 Hepatitis B Vaccines (1 of 3 - Risk 3-dose series) 2020 RSV Patients and Patients Aged 60 years or older (1 - Risk 60-74 years 1-dose series) 2020 DTaP/Tdap/Td Vaccines (2 - Td or Tdap) 11/17/2022 11/17/2012, 01/23/2001 Diabetes: Urine Protein Screening 09/06/2023 09/05/2022 Lipid Panel 09/06/2023 09/05/2022, 05/29/2022 Diabetes: Hemoglobin A1C 02/06/2024 024, 05/06/2023, 01/25/2023, Additional history exists Dental Oral Exam 02/27/2024 08/27/2023, 09/19/2022 Dental Prophylaxis 02/27/2024 08/27/2023 Dental X-Ray: Bitewings 12/20/2024 12/20/2023, 09/19 COVID-19 Vaccine ( season) 2025 05/25/2022, 06/14/2021, 09/22/2020, Additional history exists Influenza Vaccine (#1) 2025 , 02/21/2023, 02/05/2022, Additional history exists Tobacco Screening 02/13/2025 02/14/2024 Dental X-Ray: Full Mouth 09/20/2025 09/19/2022 Pneumococcal Vaccine: 50+ Years Completed 11/13/2024, 08/21/2011 HIB Vaccines Aged Out No longer eligi [...] Most Recently Relevant to Health Maintenance Insurance [facility] STANDARD MEDICARE DENTAL-[facility] MEDICAID [facility] ADULT
--- OUTSIDE RECORDS SUMMARY | 2025-02-10 11:38 | XMS_ITS | Encounter Summary ---
Author Organization [employer] Address [address] [facility] [address] 7t [place] [address] Care Team Providers Care Radial Saw Operator Name Role Phone Unavailable Primary Care Provider Unavailabl e Encounter Details Date Type Department Care Team (Latest Contact Info) Description 04/29/[address] [facility] CONVERSIONS Dental, Provider, DDS Social History [...]
--- OUTSIDE RECORDS SUMMARY | 2025-02-10 11:38 | XMS_ITS | Encounter Summary ---
Author Organization [employer] Address [address] [address] 7[address] [place] [address] Care Team Providers Care Boiler Tenders Supervisor Name Role Phone Unavailable Primary Care Provider Unavailabl e Reason for Visit * Reason Onset Date Comments Appointment 09/11/2022 Encounter Details Date Type Department Care Team (Late st Contact Info) Description 09/11/2022 Telephone [facility] ADULT DENTAL [address] [place], [place] [phone] Rich Mancera DDS [address] [place], [place] [phone] Appointment Social History Tobacco Use Types Packs/Day [...]
--- OUTSIDE RECORDS SUMMARY | 2025-02-10 11:38 | XMS_ITS | Encounter Summary ---
Author Organization [employer] Address [address] [facility] [address] 7t [place] [address] Care Team Providers Care Powder Loader Name Role Phone Unavailable Primary Care Provider Unavailabl e Encounter Details Date Type Department Care Team (Latest Contact Info) Description 02/15/2021 Abstract [facility] CONVERSIONS Dental, Provider, DDS Social History [...]
--- OUTSIDE RECORDS SUMMARY | 2025-02-10 11:38 | XMS_ITS | Encounter Summary ---
Author Organization [facility] Address [address] [facility] [address] [place] [address] Phone Care Team Providers Care Consultant Technology Name Role Phone Eduardo Garcia MD Unavailable [phone] Leonor Rose MD Unavailable [phone] Familia Contreras MD Unavailable [phone] Jeyson Hu MD Unavailable Jus Liu MD Unavailable [phone] Eduardo Garcia MD Primary Care Provider Joe Shah MD Unavailable [phone] Jj Desai MD Unavailable [phone] Encounter Details Date Type Department Care Team (Late st Contact Info) Description 01/12/2025 Orders Only [facility] Internal Medicine [address] [place] [address] Provider, MD Chai [address] [place] [address] Social History Tobacco Use Types Packs/Day Years [...] high school, GED, job training, learning the Ukrainian language, technical skills, or developing parenting skills)? [...] Description 02/15/2025 3:30 PM EDT Office Visit [facility] Internal Medicine 40 [place] [address] Eduardo Garcia MD [address] [place], [place] [email or web address] Sheron Valerio [address] [place] [address] [email or web address] documented as of this encounter Procedures Procedure Name Priority Date/Time Associated Diagnosis Comments OUTSIDE US ABDOMEN REPORT ONLY Routine 01/11/2025 9:46 AM EDT documented in this encounter Results * Outside US Abdomen Report Only (01/11/2025 9:46 AM EDT) us Historical Provider MD HYDE US ABDOMEN Final Res ult documented in this encounter Visit Diagnoses Not on filedocumented in this encounter Additional Health Concerns Assessment Noted Time PHQ-2 Depression Total Score: 1 09/03/19 25 4:24 PM EDT documented as of this encounter Care Teams Consultant Technology Relationship Specialty Start Date End Date Eduardo Garcia MD [address] [place], [place] [email or web address] PCP - General Internal Medicine 03/11/20 Eduardo Garcia MD [address] [place], [place] [email or web address] Insurance Assigned Provider 08/31/23 Leonor Rose MD [address] [place] [phone] Neurosurgeon Neurosurgery 05/22/19 Familia Contreras MD [address] [place] [phone] Physical Therapist Physical Medicine and Rehabilitation 05/22/19 Jeyson Hu MD [address] [place] [phone] Internal Medicine 12/14/19 Jus Liu MD [address] [place] [address] [place] [address] Gastroenterology 12/29/19 Joe Shah MD [address] [place] [phone] Orthopedic Surgery 04/18/20 Jj Desai MD [address] [place] [address] Dr ELLER [address] [place] [address] General Surgery 05/31/20 documented as of this encounter Additional Source Comments The information contained in this document represents components of the legal health record. It is not the complete legal health record.[facility]
--- OUTSIDE RECORDS SUMMARY | 2025-02-10 11:38 | XMS_ITS | Encounter Summary ---
Author Organization [employer] Address [address] [facility] 7t [place] [address] Care Team Providers Care Unscrambler Name Role Phone Unavailable Primary Care Provider Unavailabl e Reason for Referral * Medications - Closed Specialty Diagnoses / Procedures Referred By Ghada apbon Referred To Contact Alisha Rodas DDS [address] [place] [address] Phone: tel: fax: Referral ID Status Reason Start Date Expiration Date Visits Re quested Visits Authorized [id number] Closed 1 1 Encounter Details Date Type Department Care Team (Late st Contact Info) Description 08/28/2023 Orders Only [facility] ADULT DENTAL [address] [place] [address] Alisha Rodas DDS [address] [place] [address] Social History Tobacco Use Types Packs/Day Years [...]
== END 2025-02-10 10:27 | disposition home or self-care (01) ==
LOC: HO.RHES 09:48
PROVIDERS: PCP Internal Medicine; Visit Provider Student in an Organized Health Care Education/Training Program
DX: M32.9 Systemic lupus erythematosus, unspecified (principal); Z79.899 Other long term (current) drug therapy
CPT/HCPCS: 99214; G2211

== ENCOUNTER → 2025-02-10 09:48 | Outpatient (BNVA) | payer MEDICARE, MEDICAID, SELFPAY ==
[2024-07-15 09:17] VITALS: BP 128/60; BMI 27.1
== END ==
PROVIDERS: PCP Internal Medicine; Visit Provider Student in an Organized Health Care Education/Training Program
DX: M32.9 Systemic lupus erythematosus, unspecified (principal); Z79.899 Other long term (current) drug therapy
CPT/HCPCS: 99212

== ENCOUNTER → 2025-02-23 07:19 | Outpatient (BNV) | payer MEDICARE, MEDICAID, SELFPAY ==
[2024-07-15 09:17] VITALS: BP 128/60; BMI 27.1
== END ==
PROVIDERS: PCP Internal Medicine; Visit Provider Radiology Diagnostic Radiology
DX: K76.0 Fatty (change of) liver, not elsewhere classified (principal); R16.2 Hepatomegaly with splenomegaly, not elsewhere classified; R59.0 Localized enlarged lymph nodes; Z90.5 Acquired absence of kidney
CPT/HCPCS: 74181

== ENCOUNTER 2025-02-23 07:20 | Outpatient (REF) | payer MEDICARE, MEDICAID, SELFPAY ==
[2024-07-15 09:17] VITALS: BP 128/60; BMI 27.1
--- NOTE | ~2025-02-23 | MR_ITS ---
EXAMINATION: MRCP HISTORY: K80.20 - Calculus of gallbladder without cholecystitis without obstruction COMPARISON: Correlation is made with an abdominal ultrasound dated 01/11/2025. TECHNIQUE: Axial gradient echo in and out of phase T1, axial T2 and fat suppressed T2, and coronal haste T2 with fat saturation images were obtained through the abdomen. 3D MRCP Reconstructed images and thick slab imaging of the biliary tree were obtained. FINDINGS: The liver demonstrates a nodular contour, consistent with cirrhosis. There is no loss of signal intensity within the liver on opposed phase imaging to suggest steatosis. Evaluation for masses is limited without intravenous contrast material. There is no intrahepatic biliary ductal dilatation. The patient is status post cholecystectomy. The common bile duct is normal in caliber. No intraluminal filling defects are identified to suggest choledocholithiasis. The spleen is enlarged. The pancreas is unremarkable without intravenous contrast. The pancreatic duct is not dilated. The adrenals and kidneys are unremarkable. Multiple enlarged periportal lymph nodes are identified measuring up to 2.8 x 1.4 cm. No ascites is identified in the upper abdomen. The visualized bones demonstrate normal marrow signal intensity. MR/MR MRCP IMPRESSION: 1. Hepatosplenomegaly and hepatic steatosis. 2. Status post cholecystectomy. No evidence of choledocholithiasis. 3. Enlarged periportal lymph nodes. Electronically signed by: Joe Navarro MD 02/23/2025 08:20 AM EDT
== END 2025-02-23 07:21 | disposition home or self-care (01) ==
LOC: HO.MRI 07:20
PROVIDERS: PCP Internal Medicine; Visit Provider Internal Medicine Gastroenterology
DX: K80.20 Calculus of gallbladder without cholecystitis without obstruction (principal)
CPT/HCPCS: 74181

== ENCOUNTER 2025-03-09 10:42 | Outpatient (AMB) | payer MEDICARE, MEDICAID, SELFPAY ==
[2024-07-15 09:17] VITALS: BP 128/60; BMI 27.1
--- NOTE | 2025-03-09 11:01 | A.OFFVIS_ITS ---
Intake Intake Visit Reasons: 60 min Communications Tower Technician Required: Yes Communications Tower Technician Language: Fruit Ii Farmworker Services: Communications Tower Technician Offered & Declined Accompanied by: Self / Same As Patient Allergies duloxetine (From CYMBALTA) Allergy (Intermediate, Verified 02/10/25 10:03) JUVE WILL Comprehensive Diabetes Asmnt Most Recent Diabetes Results: 2 Hemoglobin A1c 6.9 % 01/15/20 Microalb/Creat Ratio TNP 01/13/25 Cholesterol, (<200) 129 mg/dL 07/14/24 HDL Cholesterol, (>40) 41 mg/dL 07/14/24 Triglycerides, (<150) 108 mg/dL 07/14/24 Creatinine, (0.5-1.4) 0.87 mg/dL 01/17/25 BUN, (9-16) 13 mg/dL 01/17/25 Sodium, (135-145) 138 mmol/L 01/17/25 Potassium, (3.3-5.1) 3.7 mmol/L 01/17/25 Chloride, (96-108) 102 mmol/L 01/17/25 Carbon Dioxide, (22-29) 23 mmol/L 01/17/25 Calcium, (8.4-10.2) 8.9 mg/dL 01/17/25 AST, (5-31) 40 U/L H 01/17/25 ALT, (0-31) 27 U/L 01/17/25 Total Protein, (6.5-8.0) 9.4 g/dL H 01/17/25 Albumin, (3.5-5.0) 4.1 g/dL 01/17/25 [facility] Medical History Trigger finger, left ring finger Cirrhosis Antiphospholipid antibody syndrome Leg pain, right Abdominal bloating Lupus Arthritis POOL (dyspnea on exertion) Gallstones Cirrhosis Nonalcoholic steatohepatitis (SHARMA) Autoimmune hepatitis High blood pressure Fibromyalgia Diabetes Surgical History History of esophagogastroduodenoscopy (EGD) History of heart artery stent Hx of cholecystectomy Hx of endoscopy History of colonoscopy History of shoulder surgery History of cataract surgery (2010) History of repair of right rotator cuff (08/2011) History of cervical discectomy (07/2009) History of carpal tunnel release Family History Father History of diabetes mellitus, type II History of hypertension History of heart bypass surgery Mother History of diabetes mellitus, type II Brother History of gout Paternal Uncle Cancer Paternal Aunt Cancer Social History Household Members: None Housing: Apartment Are you a primary healthcare technician to a significant other at home: No 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 have visiting nurse or other home services: No Alcohol intake: never Patient Tobacco Use Status: Never used Tobacco service: No Current occupational status: disabled Assessment & Plan Assessment & Plan (1) Diabetes: Comment: NIDDM Code(s): E11.9 - Type 2 diabetes mellitus without complications Plan: Learning objectives: The patient was provided with verbal and written education on the following topics as outlined below. Assess patient education level/literacy/barriers, patient's last A1c on 01/13/2025 7.3% Personal Continuous Glucose Monitor: Patients CGM information reviewed, Pt uses Leobardo 3+ leobardo Pt reports that when glucose is under 120 mg/dL at night she holds her Tresiba 10 units. She does not bring mealtime insulin pen with her when she eats away from home, but will take humalog 16 units when she returns home after meals. Reviewed action of Tresiba and Humalog with patient at today's visit Patient also reports she has started drinking coffee and adding multiple tsp of sugar. Suggested to patient she reduce sugar in coffee or use artificial sweetener. Pt agreed to take humalog 8 units if it is 30 minutes or more after eating and she has not taken Humlog prior to meals The patient met all learning objectives and was able to verbalize understanding and provide teach back of education topics discussed . The patient was provided with the opportunity to ask questions and all questions were answered. Topics covered in today?s session included: Insulin/Injectables (If applicable) * Onset, peak, duration * Injecting insulin/other injectables? Continuous blood glucose monitoring (if applicable) Portions of this note were created using voice recognition software, please excuse any words or phrases that may have been misinterpreted. Coding Level of Care Code Est Pt Level 1 (45314) Diagnoses Diabetes E11.9
--- OUTSIDE RECORDS SUMMARY | 2025-03-09 12:37 | XMS_ITS | Clinical Summary ---
Author Organization [employer] Address [address] [facility] 7t [place] [address] Care Team Providers Care Tile Erector Name Role Phone Unavailable Primary Care Provider [...] (SHARMA) 08/13/2023 Atherosclerotic heart diseas e of [place] coronary artery with other forms of angina pectoris 02/21/2023 Systemic lupus erythematosus (CMS/HCC) 0 Nocturia 12/13/2017 Abnormal liver function tests 06/06/2017 Bilateral low back pain with bilateral sciatica 06/06/2017 Cervical radiculopathy 06/06/2017 Depression 06/06/2017 Type 2 diabetes mellitus without complications 0 06/06/2017 Fatigue 06/06/2017 Gastroesophageal reflux disease 06/06/2017 Other cirrhosis of liver 06/06/2017 Respiratory abnormality 06/06/2017 Autoimmune hepatitis (CMS/HCC) 12/25/2016 Overview (08/13/2023): dr roman Arthritis 09/17/2013 [...] Most Recently Relevant to Health Maintenance Insurance [facility] STANDARD MEDICARE DENTAL-[facility] MEDICAID [facility] ADULT
--- OUTSIDE RECORDS SUMMARY | 2025-03-09 12:37 | XMS_ITS | Encounter Summary ---
Author Organization [facility] Address [address] [facility] [address] [place] [address] Phone Care Team Providers Care Automobile Service Writer Name Role Phone Eduardo Garcia MD Unavailable Leonor Rose MD Unavailable [phone] Familia Contreras MD Unavailable [phone] Jeyson Hu MD Unavailable Jus Liu MD Unavailable [phone] Eduardo Garcia MD Primary Care Provider Joe Shah MD Unavailable [phone] Jj Desai MD Unavailable [phone] Reason for Visit * Reason Onset Date Comments Medication Refill 03/09/2025 CSRP Encounter Details Date Type Department Care Team (Late st Contact Info) Description 03/09/2025 Refill [facility] [place] Internal Medicine [address] [place], [place] [phone] Eduardo Garcia MD [address] [place] [address] [email or web address] Medication Refill (CSRP) Social History Tobacco Use Types Packs/Day Years [...] high school, GED, job training, learning the Welsh language, technical skills, or developing parenting skills)? [...] as of this encounter Progress Notes * Teja Friedman MA - 03/09/2025 9:17 AM EDT Images from the original note were not included. FW: CSRP Oxycodone 5mg Due: Today Received: 1 week ago Patient reminder Meche Pan CMA P [facility] Rx LAB ENGINEER checked, sold 02/16/25 Previous Messages ----- Message ----- From: Teja Friedman MA Sent: 02/01/2025 12:40 PM EDT To: [facility] Subject: CSRP Oxycodone 5mg See TE 02/01/25, Rx to be filled on 02/09/25 Rx Care Gap Status - Instructions for Clinical Staff (prescriber discretion applies): > Mismatch review guide > Check PDMP for all controlled medication requests. Visit Info Last visit: 02/15/2025 Eduardo Garcia MD - Internal Medicine [facility] > Requested f/u: Return in about 3 months (around 05/17/2025). Upcoming visit: 05/14/2025 Eduardo Garcia MD - Internal Medicine [facility] ACTIONS TAKEN BY Teja Friedman MA - Checked PDMP/[place]. Opioid Rx Protocol - oxycodone HCl Controlled substance renewals are at prescriber discretion. Pain mgmt profile/toxicology (urine/saliva) may be considered annually or more frequently if indicated. In-person visit in past 2 years: Yes (Last in-person visit: 02/15/2025 (Eduardo Garcia MD - [facility])) Visit in past 4 months: Yes Benzodiazepine on medication list Opioid agreement on file: Yes Pain management profile/toxicology in past 12 months: Yes documented in this encounter Plan of Treatment Upcoming Encounters Date Type Department Care Team (Late st Contact Info) Description 05/14/2025 11:30 AM EST Office Visit [facility] Internal Medicine [address] [place] [address] Eduardo Garcia MD [address] [place], [place] [phone] 10/04/2025 11:00 AM EDT Office Visit [facility] Internal Medicine [address] [place] [address] Eduardo Garcia MD [address] [place], [place] documented as of this encounter Visit Diagnoses Diagnosis Bilateral low back pain with right-sided sciatica documented in this encounter Additional Health Concerns Assessment Noted Time PHQ-2 Depression Total Score: 1 09/03/19 25 4:24 PM EDT documented as of this encounter Care Teams Automobile Service Writer Relationship Specialty Start Date End Date Eduardo Garcia MD [address] [place] [address] PCP - General Internal Medicine 03/11/20 Eduardo Garcia MD [address] [place] [address] Insurance Assigned Provider 08/31/23 Leonor Rose MD [address] [place] [phone] Neurosurgeon Neurosurgery 05/22/19 Familia Contreras MD [address] [place] [address] [phone] Physical Therapist Physical Medicine and Rehabilitation 05/22/19 Jeyson Hu MD [address] [place] [address] Internal Medicine 12/14/19 Jus Liu MD [address] [place] [address] [place] [address] Gastroenterology 12/29/19 Joe Shah MD [address] [place] [phone] Orthopedic Surgery 04/18/20 Jj Desai MD [address] [place] [address] Dr ELLER [address] [place] [address] General Surgery 05/31/20 documented as of this encounter Additional Source Comments The information contained in this document represents components of the legal health record. It is not the complete legal health record.[facility]
--- OUTSIDE RECORDS SUMMARY | 2025-03-09 12:37 | XMS_ITS | Encounter Summary ---
Author Organization [employer] Address [address] [facility] 7t [place] [address] Care Team Providers Care Photoengraving Sketch Maker Name Role Phone Unavailable Primary Care Provider Unavailabl e Reason for Referral * Medications - Closed Specialty Diagnoses / Procedures Referred By Ghada pabon Referred To Contact Alisha Rodas DDS [address] [place] [address] Phone: tel: fax: Referral ID Status Reason Start Date Expiration Date Visits Re quested Visits Authorized [id number] Closed 1 1 Encounter Details Date Type Department Care Team (Late st Contact Info) Description 08/28/2023 Orders Only [facility] [address] [place] [address] Alisha Rodas DDS [address] [place] [address] Social History Tobacco Use Types Packs/Day Years [...]
--- OUTSIDE RECORDS SUMMARY | 2025-03-09 12:37 | XMS_ITS | Clinical Summary ---
Author Organization [facility] Address [address] [address] Phone Care Team Providers Care Flue Gas Analyst Name Role Phone Eduardo Garcia MD Unavailable [...] Active lansoprazole (PREVACID) 30 MG capsule Take 40 mg by mouth 2 (two) times a day. Active sucralfate (CARAFATE) 100 mg/mL suspension Take 100 mg by mouth 2 (two) times a day. Active ascorbic smmw-vstkqchw-bgf (EMERGEN-C) 1,000 mg PwEP Take 1 packet by mouth every other day. Active naloxone (NARCAN) 4 mg/actuation nasal sprayIndications: Chronic, continuous use of opioids 1 spray by Intranasal route once for 1 dose. After one (1) spray, call 911. If no response in 3-5 minutes, repeat with second nasal spray. 1 each 1 Active VENTOLIN HFA 90 mcg/actuation inhalerIndication s:Bronchospasm INHALE 2 PUFFS EVERY 4 HOURS NEEDED [...] 1 each Active TRUEPLUS LANCETS 33 gauge MiscIndications:T ype 2 diabetes mellitus without complications TEST BLOOD SUGAR THREE TIMES DAILY BEFORE MEALS 100 each 5 Active metoprolol succinate (TOPROL-XL) 25 MG 24 hr tablet Take 25 mg by mouth daily. Active rosuvastatin (CRESTOR) 5 MG tablet Take 5 mg by mouth daily. Active blood sugar diagnostic (FREESTYLE LITE) Strp stripsIndications :Type 2 diabetes mellitus without complications Inject 1 each under the skin every morning. USE DIRECTED TO TEST BLOOD SUGAR EVERY DAY 100 strip 11 Active lancets (TRUEPLUS LANCETS) 33 gauge MiscIndications:T ype 2 diabetes mellitus without complication Inject 1 each into the skin every morning. 100 each 11 Active metFORMIN (GLUCOPHAGE-XR) 500 MG 24 hr tabletIndications :Type 2 diabetes mellitus without complications TAKE 2 TABLETS BY MOUTH TWICE DAILY 120 tablet 11 025 Active lisinopril (PRINIVIL,ZESTRIL ) 2.5 MG tabletIndications :Hypertension TAKE 1 TABLET BY MOUTH EVERY DAY 30 tablet 11 025 Active aspirin 81 MG EC tablet TAKE 1 TABLET BY MOUTH DAILY 90 tablet 3 025 Active cyclobenzaprine (FLEXERIL) 5 MG tablet Take 1 tablet (5 mg total) by mouth 3 (three) times a day as needed (muscle spasm). 30 tablet 025 Active TRULANCE 3 mg tablet Take 1 tablet by mouth every morning. 025 Active BD ULTRA-FINE LANIE PEN NEEDLE 32 gauge x 5/32 Ndle 1 each nightly at bedtime. 025 Active NOVOLOG FLEXPEN U-100 INSULIN 100 unit/mL (3 mL) flexpen Inject 4 Units under the skin daily with breakfast. 025 Active predniSONE (DELTASONE) 20 MG tablet Take 1 tablet by mouth every morning. 025 Active ondansetron (ZOFRAN-ODT) 4 MG disintegrating tabletIndications :Nausea DISSOLVE 1 TABLET ON TONGUE EVERY 8 HOURS NEEDED FOR NAUSEA 30 tablet 3 025 Active TRESIBA FLEXTOUCH U-100 injection pen Inject 10 Units under the skin nightly at bedtime. 025 Active ALCOHOL PREP PADS PadMIndications:T ype 2 diabetes mellitus without complications USE THREE TIMES DAILY 100 each 025 Active VENTOLIN HFA 90 mcg/actuation inhaler INHALE 2 PUFFS BY MOUTH EVERY 6 HOURS NEEDED FOR WHEEZING OR SHORTNESS OF BREATH 18 g 3 025 Active oxyCODONE 5 MG immediate release tabletIndications :Bilateral low back pain with right-sided sciatica Take 1 tablet (5 mg total) by mouth every 4 (four) hours as needed (low back pain with righ sided sciatica). partial fill okay upon patient request No more than 5 a day 140 tablet 025 Active fluticasone propionate (FLONASE) 50 mcg/actuation nasal sprayIndications: Allergic rhinitis due to other allergic trigger, unspecified seasonality 2 sprays by Nasal route daily as needed for allergies. 16 g 3 025 Active JARDIANCE 25 mg tabletIndications :Type 2 diabetes mellitus without complications TAKE 1 TABLET BY MOUTH EVERY DAY 30 tablet 2 Active cholecalciferol (VITAMIN D3) 25 MCG (1,000 unit) tablet TAKE 1 TABLET BY MOUTH EVERY DAY 90 tablet 3 025 Active JARDIANCE 25 mg tabletIndications :Type 2 diabetes mellitus without complications take 1 tablet by mouth every day 30 tablet 11 024 2024 Discontinued cholecalciferol (VITAMIN D3) 25 MCG (1,000 unit) tablet take 1 tablet by mouth every day 30 tablet 11 024 2024 Discontinued fluticasone propionate (FLONASE) 50 mcg/actuation nasal sprayIndications: Allergic rhinitis due to other allergic trigger, unspecified seasonality 2 sprays by Nasal route daily as needed. 16 g 3 025 2024 Discontinued(Irena triplett) Active Problems Problem Noted Date Diagnosed Date [...] assess. Advised that she should contact her greenhouse manager regarding her difficulties with her insulin levels. [...] I advised that she should contact her stock digger regarding the symptoms as well so that [...] need 02/18/2024 Atherosclerotic heart diseas e of [place] coronary artery with other forms of angina pectoris 02/21/2023 Systemic lupus erythematosus 09/21/2019 Nocturia 12/13/2017 Bilateral low back pain with bilateral sciatica 06/06/2017 Cervical radiculopathy 06/06/2017 Depression 06/06/2017 Respiratory abnormality 06/06/2017 Fatigue 06/06/2017 Other cirrhosis of liver 06/06/2017 Gastroesophageal reflux disease 06/06/2017 Overview (01/29/2024): [facility] seen 01/02/24 Dr. Liu - pt [...] Encounters Date Type Department Care Team Description 03/09/2025 Refill [facility] Internal Medicine [address] [facility] [place] [address] Eduardo Garcia MD [facility] 03/07/2025 Refill [facility] Internal Medicine [address] [facility] [place] [address] Eduardo Garcia MD Medication Refill 02/23/2025 Orders Only [facility] Internal Medicine [address] [facility] [place] [address] Chai Gold MD 02/18/2025 Orders Only [facility] Internal Medicine [address] [facility] [place] [address] Chai Gold MD 02/18/2025 Refill [facility] Internal Medicine [address] [facility] [place] [address] Eduardo Garcia MD Medication Refill 02/15/2025 3:30 PM EDT Office Visit [facility] Internal Medicine [address] [facility] [place] [address] Eduardo Garcia MD Miranda-Leon, [place] Benign essential hypertension (Primary Dx); Chest wall pain; Chronic left shoulder pain; Need for prophylactic vaccination and inoculation against influenza; Allergic rhinitis due to other allergic trigger, unspecified seasonality; Atherosclerotic heart disease of [place] coronary artery with other forms of angina pectoris; Type 2 diabetes mellitus without complication, without long-term current use of insulin 02/01/2025 Refill [facility] Internal Medicine [address] [facility] [place] [address] Eduardo Garcia MD Medication Refill ([facility]) 01/22/2025 Telephone [facility] Internal [facility] [address] [facility] [place] [address] Eduardo Garcia MD Results 01/21/2025 11:47 AM EDT - 01/21/2025 11:59 PM EDT Hospital Encounter [facility] [address] [facility] [place] [address] Renetta Enriquez PA-C Discharge Disposition: Home or Self Care 01/21/2025 11:20 AM EDT Office Visit [facility] Internal [facility] [address] [facility] [place] [address] Renetta Enriquez PA-C Shakiness (Primary Dx); Gastroesophageal reflux disease, unspecified whether esophagitis present 01/21/2025 Telephone [facility] Internal Medicine [address] [place], [place] [phone] Eduardo Garcia MD Follow-up 01/12/2025 Orders Only [facility] Internal Medicine [address] [facility] [place] [address] Chai Gold MD 01/08/2025 Refill [facility] Internal Medicine [address] [place] [address] Eduardo Garcia MD Medication Refill 01/04/2025 Refill [facility] Internal Medicine [address] [facility] [place] [address] Eduardo Garcia MD Medication Refill ([facility]) 12/08/2024 Orders Only [facility] Internal [facility] [address] [place] [address] ProviderChai MD from Last 3 Months Immunizations Immunization Administration Dates Next Due COVID-19 (Pre-03/18) Moderna Vaccine, mRNA, PF 09/22/2020,08/25/2020 INFLUENZA, SPLIT VIRUS, TRIVALENT PF 02/15/2025, 02/18/2024,02/21/2016 INFLUENZA, SPLIT VIRUS, TRIV ALENT W/ PRESERVATIVE [...] high school, GED, job training, learning the Persian language, technical skills, or developing parenting skills)? [...] Sign Reading Time Taken Comments Blood Pressure 128/66 02/15/2025 4:09 PM EDT Pulse 93 02/15/2025 3:25 PM EDT Temperature 36.2 C (97.1 F) 02/15/2025 3:25 PM EDT Respiratory Rate 13 02/15/2025 3:25 PM EDT Oxygen Saturation 98% 02/15/2025 3:25 PM EDT Inhaled Oxygen Concentration - - Weight 64.5 kg (142 lb 3.2 oz) 02/15/2025 3:25 P M EDT Height 154.4 cm (5' 0.79 ) 02/15/2025 3:25 PM ED T Body Mass Index 27.06 02/15/2025 3:25 PM EDT Plan of Treatment Upcoming Encounters Date Type Department Care Team (Late st Contact Info) Description 05/14/2025 11:30 AM EST Office Visit [facility] Internal Medicine [address] [facility] [place] [address] Eduardo Garcia MD [address] [place] [address] [email or web address] 10/04/2025 11:00 AM EDT Office Visit [facility] Internal Medicine [address] [facility] [place] [address] Eduardo Garcia MD [address] [place] [address] [email or web address] Health Maintenance Due Date Last Done Comments HEPATITIS A VACCINES (1 of 2 - Risk 2-dose series) 09/03/1979 ZOSTER VACCINES (1 of 2) 09/03/1979 COLOGUARD 2005 FIT TEST 2005 FOBT 2005 SIGMOIDOSCOPY 2005 VIRTUAL COLONOSCOPY 2005 RSV VACCINE (1 - Risk 50-74 years 1-dose series) 2010 Adult Td,Tdap Booster 11/17/2022 11/17/2012, 001 HEMOGLOBIN A1C 01/11/2025 07/14/2024, 02/25, 03/20/2024, Additional history exists COVID-19 VACCINE (2024- season) 2025 05/25/2022, 06/14/2021, 09/22/2020, Additional history exists LIPID PANEL 07/14/2025 07/14/2024, 06/27, 07/14/2024, Additional history exists BLOOD PRESSURE 08/15/2025 02/15/2025 DEPRESSION SCREENING 2025 2024 DIABETIC EYE EXAM [...] PNEUMOCOCCAL VACCINES (50+ years) Completed 11/13/2024, 08/21/2011 INFLUENZA VACCINE Completed 02/15/2025, , 02/21/2023, Additional history exists SMOKING STATUS SCREENING (Once After 26 Yrs) Completed 02/15/2025 HIB VACCINES Aged Out No longer eligi ble based on patient's age to complete this topic MENINGOCOCCAL VACCINES (ACWY) Aged Out No longer eligible based on patient's age to complete this topic MENINGOCOCCAL VACCINES (B) Aged Out N o longer eligible based on patient's age to complete this topic Medical Devices Not on file Procedures Procedure Name Priority Date/Time Associated Diagnosis Comments OUTSIDE IMAGING Routine 02/23/2025 10:43 AM EDT COMPREHENSIVE METABOLIC PANEL Routine 01/21/2025 11:47 AM EDT [place]akiness CBC AND DIFFERENTIAL Routine 01/21/2025 11:47 AM EDT [place]akiness FERRITIN Routine 01/21/2025 11:47 AM EDT [place]ak[place] IRON AND IRON BINDING CAPACITY Routine 01/21/2025 11:47 AM EDT Shakiness OUTSIDE LAB Routine 01/17/2025 8:25 AM EDT OUTSIDE US ABDOMEN REPORT ONLY Routine 01/11/2025 9:46 AM EDT HM MAMMOGRAPHY Routine 11/24/2024 9:32 AM EDT DIABETES EYE EXAM FOR RESULT ENTRY ONLY Routine 09/16/2024 2:00 PM EDT OUTSIDE HEMOGLOBIN A1C Routine 07/14/2024 OUTSIDE HDL Routine 07/14/2024 OUTSIDE HEPATITIS C VIRUS SCREENING Routine 05/28/2024 PAP TEST Routine 02/07/2022 COLONOSCOPY FOR RESULT ENTRY ONLY Routine 05/03/2021 from Last 3 Months or Most Recently Relevant to Health Maintenance Results * Outside Imaging Report Only (02/23/2025 10:43 AM EDT) us Historical Provider MD HYDE XR CHEST Final Res ult * (ABNORMAL) Comprehensive metabolic panel (01/21/2025 11:47 AM EDT) SODIUM 137 133 - 146 mmol/L [facility] POTASSIUM 4.4 3.3 - 5.1 mmol/L [facility] CHLORIDE 100 96 - 108 mmol/L [facility] CO2 23 21 - 35 mmol/L [facility] BUN 12 6 - 19 mg/dL [facility] CREATININE 0.50 0.5 - 1.5 mg/dL [facility] GLUCOSE 130(H) 70 - 99 mg/dL [facility] ALBUMIN 4.2 3.9 - 4.8 g/dL [facility] TOTAL PROTEIN 9.9(H) 6.5 - 8.0 g/dL [facility] CALCIUM 9.8 8.4 - 10.3 mg/dL [facility] ALKALINE PHOSPHATASE 148(H) 39 - 117 U/L [facility] TOTAL BILIRUBIN 0.6 0.0 - 1.2 mg/dL [facility] AST 35 0 - 37 U/L [facility] ALT 21 0 - 40 U/L [facility] GLOBULIN 5.7(H) 1 - 4.8 g/dL [facility] EGFR 105 >59 mL/min/1.7 3m2 [facility] Comment:Estimated glomerular filtration rate calculated using the CKD-EPI refit equation. ANION GAP 18 10 - 20 mmol/L [facility] Blood 01/21/2025 11:4 7 AM EDT 01/21/2025 11:52 AM EDT [facility] Zoe TAYLOR-Roly LAB BLOOD ORDERABLES Final R esult Performing Organization Address City/[facility]/ZIP Co de Phone Number [address] [address] * (ABNORMAL) Iron and iron binding capacity (01/21/2025 11:47 AM EDT) IRON 42 30 - 160 ug/dL [facility] IRON BINDING CAPACITY 415 228 - 428 ug/dL [facility] TRANSFERRIN SATURAT. 10(L) 15 - 50 % [facility] Blood 01/21/2025 11:4 7 AM EDT 01/21/2025 11:52 AM EDT [facility] LAB BLOOD ORDERABLES Final R esult Performing Organization Address City/[facility] Co de Phone Number [address] [address] * (ABNORMAL) CBC and differential (01/21/2025 11:47 AM EDT) WBC 5.97 4.00 - 11.00 K/uL [facility] RBC 4.51 4.00 - 5.20 M/uL [facility] HGB 12.3 12.0 - 16.0 g/dL [facility] HCT 39.9 36.0 - 46.0 % [facility] PLT 200 150 - 450 K/uL [facility] MCV 88.5 80.0 - 100.0 fL [facility] MCH 27.3 27.0 - 31.0 pg [facility] MCHC 30.8(L) 32.0 - 36.0 g/dL [facility] RDW 14.7(H) 11.5 - 14.5 % [facility] MPV 11.1 8.4 - 12.0 fL [facility] NRBC 0.00 0.00 /100 WBCs [facility] ABSOLUTE NRBC 0.00 0.00 K/uL [facility] DIFF METHOD Auto [facility] NEUTS 67.9 48.0 - 76.0 % [facility] LYMPHS 18.1 18.0 - 41.0 % [facility] MONOS 10.4 4.0 - 11.0 % [facility] EOS 1.8 0.0 - 5.0 % [facility] BASOS 1.5 0.0 - 1.5 % [facility] Granulocytes, immature (%) 0.3 0.0 - 0.9 % [facility] ABSOLUTE NEUTS 4.05 1.92 - 7.60 K/uL [facility] ABSOLUTE LYMPHS 1.08 0.72 - 4.10 K/uL [facility] ABSOLUTE MONOS 0.62 0.16 - 1.10 K/uL [facility] ABSOLUTE EOS 0.11 0.00 - 0.50 K/uL [facility] ABSOLUTE BASOS 0.09 0.00 - 0.15 K/uL [facility] Granulocytes, immature 0.02 0.00 - 0.09 K/uL [facility] Blood 01/21/2025 11:4 7 AM EDT 01/21/2025 11:52 AM EDT Renetta Enriquez PA-C LAB BLOOD ORDERABLES Final R esult [address] [address] * Ferritin (01/21/2025 11:47 AM EDT) FERRITIN 20 13 - 150 ug/L [facility] Blood 01/21/2025 11:4 7 AM EDT 01/21/2025 11:52 AM EDT Renetta Enriquez PA-C LAB BLOOD ORDERABLES Final R esult [facility] [address] [place] [address] * Outside Lab (01/17/2025 8:25 AM EDT) Result [facility] Provider LAB BLOOD ORDERABLES Ruth l Result * Outside US Abdomen Report Only (01/11/2025 9:46 AM EDT) Result [facility] Provider IMG US ABDOMEN Final Res ult * HM MAMMOGRAPHY FOR RESULT ENTRY ONLY (11/24/2024 9:32 AM EDT) Result [facility] Provider HEALTH MAINTENANCE Final Result * HM DIABETES EYE EXAM FOR RESULT ENTRY ONLY (09/16/2024 2:00 PM EDT) Result [facility] Alla [facility] HE[facility] MAINTENANCE Final Result * [...] External Neg Result [facility] Provider LAB BLOOD ORDERABLES Ruth l Result * Pap Smear (02/07/2022) Result [facility] Provider CYTOLOGY ORDERABLES Final Result * HM COLONOSCOPY FOR RESULT ENTRY ONLY (05/03/2021) Result [facility] MAINTENANCE Edited Result - Final from Last 3 Months or Most Recently Relevant to Health Maintenance Insurance MEDICARE PART A & [place] [facility] MED[place] PART [place] & [place] MEDICARE PART A & B Member Subscriber Plan / Payer (Ef fective 2010-Present) Name:Radha Chong Member ID:[id number] Relation to Subscriber:Self Name:Radha Chong Subscriber ID:[id number] Payer ID:[id number] Group ID:Not on file Type:Medicare Address: [employer] [address] [place] A & B [facility] Advance Directives For more information, please contact: [phone] (9AM - 5PM [facility], Saturday-Saturday) Documents on File Type Date Recorded Patient Watch And Clock Repairer Expl anation Healthcare Proxy 08/20/2017 12:27 PM Healt hcare Proxy (In Namibian) Care Teams Flue Gas Analyst Relationship Specialty Start Date End Date Eduardo Garcia MD [address] [place] [phone] [email or web address] PCP - General Internal Medicine 03/11/20 Eduardo Garcia MD [address] [place] [address] [email or web address] Insurance Assigned Provider 08/31/23 Leonor Rose MD [address] [place] [address] Neurosurgeon Neurosurgery 05/22/19 Familia Contreras MD [address] [place] [address] [phone] Physical Therapist Physical Medicine and Rehabilitation 05/22/19 Jeyson Hu MD [address] [place] [phone] Internal Medicine 12/14/19 Jus Liu MD [address] [place] [address] [place] [address] Gastroenterology 12/29/19 Joe Shah MD [address] [place] [phone] Orthopedic Surgery 04/18/20 Jj Desai MD [address] [place] [address] [place] [address] General Surgery 05/31/20 Additional Source Comments The information contained in this document represents components of the legal health record. It is not the complete legal health record.[facility]
--- OUTSIDE RECORDS SUMMARY | 2025-03-09 12:37 | XMS_ITS | Encounter Summary ---
Author Organization [employer] Address [address] [place] [address] Care Team Providers Care Tent Worker Name Role Phone Unavailable Primary Care Provider Unavailabl e Encounter Details Date Type Department Care Team (Latest Contact Info) Description 09/06/2021 Abstract [facility] CONVERSIONS Dental, Provider, DDS Social [...]
--- OUTSIDE RECORDS SUMMARY | 2025-03-09 12:37 | XMS_ITS | Encounter Summary ---
Author Organization [facility] Address [address] [address] Phone Care Team Providers Care Process Technician Name Role Phone Eduardo Garcia MD Primary Care Provider Eduardo Garcia MD Unavailable [phone] Leonor Rose MD Unavailable [phone] Familia Contreras MD Unavailable [phone] Jeyson Hu MD Unavailable Jus Liu MD Unavailable Eduardo Garcia MD Primary Care Provider Joe Shah MD Unavailable [phone] Jj Desai MD Unavailable Claudia Acevedo RN Unavailable [phone] Encounter Details Date Type Department Care Team (Latest Contact Info) Description 06/26/2019 Transcribe Orders [facility] Specimen Processing [address] [place] [address] Eduardo Garcia MD [address] [place], [place] [phone] [email or web address] Low back pain with right-sided sciatica, unspecified [...] Description 05/14/2025 11:30 AM EST Office Visit [facility] Internal Medicine [address] [place] [address] Eduardo Garcia MD [address] [place] [address] 10/04/2025 11:00 AM EDT Office Visit [facility] Internal Medicine [address] [place] [address] Eduardo Garcia MD [address] [place] [address] documented as of this encounter Results * (ABNORMAL) Toxicology screen, urine (06/26/2019 8:34 PM EST) Pathologist [facility] URINE CANNABINOIDS NONE DETECTED NONE DETECTED [facility] Comment:Cutoff: 50 ng/mL URINE COCAINE METAB NONE DETECTED NONE DETECTED [facility] Comment:Cutoff: 300 ng/mL URINE AMPHETAMINES NONE DETECTED NONE DETECTED [facility] Comment:Cutoff: 1000 ng/mL URINE METHADONE NONE DETECTED NONE DETECTED [facility] Comment:Cutoff: 300 ng/mL URINE OPIATES NONE DETECTED NONE DETECTED [facility] Comment:Cutoff: 300 ng/mL URINE PHENCYCLIDINE NONE DETECTED NONE DETECTED [facility] Comment:Cutoff: 25 ng/mL URINE OXYCODONE Positive(A) NONE DETECTED [facility] Comment:Cutoff: 100 ng/ml URINE BARBITURATES NONE DETECTED NONE DETECTED [facility] Comment:Cutoff: 300 ng/mL URINE BENZODIAZEPINE NONE DETECTED NONE DETECTED [facility] Comment: Cutoff: 300 ng/mL INTERPRETATION FOR TOXICOLOGY PANEL: These results are unconfirmed and should be used for Medical Treatment purposes only. Urine (Urine) 06/26/2019 8:3 4 PM EST 06/26/2019 8:58 PM EST Eduardo Garcia MD URINE ORDERABLES Final Result [address] [address] documented in this encounter Visit Diagnoses Diagnosis Low back pain with right-sided sciatica, unspecified back pain laterality, unspecified chronicity- Primary documented in this encounter Additional Health Concerns Infection Onset Date Last Indicated Resolved Time CoV-Risk 05/06/2023 05/06/2023 05/17/2023 1:22 AM EST CoV-Risk 02/18/2024 02/18/2024 02/29/2024 1:22 AM EDT Assessment Noted Time PHQ-2 Depression Total Score: 0 05/21/20 19 10:14 AM EST documented as of this encounter Care Teams Process Technician Relationship Specialty Start Date End Date Eduardo Garcia MD [address] [place] [address] PCP - General Internal Medicine 06/21/17 03/10/20 Eduardo Garcia MD [address] [place] [address] PCP - General Internal Medicine 03/11/20 Eduardo Garcia MD [address] [place] [address] Insurance Assigned Provider 08/31/23 Leonor Rose MD [address] [place] [address] Neurosurgeon Neurosurgery 05/22/19 Familia Contreras MD [address] [place] [phone] Physical Therapist Physical Medicine and Rehabilitation 05/22/19 Jeyson Hu MD [address] [place] [phone] Internal Medicine 12/14/19 Jus Liu MD [address] [place] [address] Dr [address] [place] [phone] Gastroenterology 12/29/19 Joe Shah MD [address] [place] [phone] Orthopedic Surgery 04/18/20 Jj Desai MD [address] [place] [address] Dr ELLER [address] [place] [address] General Surgery 05/31/20 Claudia Acevedo, RN [address] [place] [phone] [email or web address] PHC Director Of IntelligenceSales Representative Consultant 05/04/22 05/23/22 documented as of this encounter Additional Source Comments The information contained in this document represents components of the legal health record. It is not the complete legal health record.[facility]
--- OUTSIDE RECORDS SUMMARY | 2025-03-09 12:37 | XMS_ITS | Encounter Summary ---
Author Organization [employer] Address [address] [facility] [address] [place] [address] Care Team Providers Care Chief Telephone Operator Name Role Phone Unavailable Primary Care Provider Unavailabl e Reason for Visit * Reason Onset Date Comments Appointment 09/11/2022 Encounter Details Date Type Department Care Team (Late st Contact Info) Description 09/11/2022 Telephone [facility] [address] [place], [place] [phone] Rich Mancera DDS [address] [place], [place] [phone] Appointment Social History Tobacco Use Types Packs/Day [...]
--- OUTSIDE RECORDS SUMMARY | 2025-03-09 12:37 | XMS_ITS | Encounter Summary ---
Author Organization [employer] Address [address] [facility] [address] 7t [place] [address] Care Team Providers Care Phlebotomy Instructor Name Role Phone Unavailable Primary Care Provider Unavailabl e Encounter Details Date Type Department Care Team (Latest Contact Info) Description 02/15/2021 Abstract [facility] CONVERSIONS Dental, [...]
--- OUTSIDE RECORDS SUMMARY | 2025-03-09 12:37 | XMS_ITS | Encounter Summary ---
Author Organization [facility] Address [address] [facility] [address] [place] [address] Phone Care Team Providers Care Mutuel Clerk Name Role Phone Eduardo Garcia MD Unavailable [phone] Leonor Rose MD Unavailable [phone] Familia Contreras MD Unavailable [phone] Jeyson Hu MD Unavailable Jus Liu MD Unavailable [phone] Eduardo Garcia MD Primary Care Provider Joe Shah MD Unavailable [phone] Jj Desai MD Unavailable [phone] Encounter Details Date Type Department Care Team (Late st Contact Info) Description 02/23/2025 Orders Only [facility] Internal Medicine [address] [place] [address] Provider, MD Chai [address] [place] [address] Social History Tobacco Use Types Packs/Day [...] high school, GED, job training, learning the [place]ian language, technical skills, or developing parenting skills)? [...] Description 05/14/2025 11:30 AM EST Office Visit [facility] Internal Medicine [address] [place] [address] Eduardo Garcia MD [address] [place], [place] [email or web address] 10/04/2025 11:00 AM EDT Office Visit [facility] Internal Medicine [address] [place], [place] [phone] Eduardo Garcia MD [address] [place], [place] [email or web address] documented as of this encounter Procedures Procedure Name Priority Date/Time Associated Diagnosis Comments OUTSIDE IMAGING Routine 02/23/2025 10:43 AM EDT documented in this encounter Results * Outside Imaging Report Only (02/23/2025 10:43 AM EDT) us Historical Provider MD HYDE XR CHEST Final Res ult documented in this encounter Visit Diagnoses Not on filedocumented in this encounter Additional Health Concerns Assessment Noted Time PHQ-2 Depression Total Score: 1 09/03/19 25 4:24 PM EDT documented as of this encounter Care Teams Mutuel Clerk Relationship Specialty Start Date End Date Eduardo Garcia MD [address] [place], [place] PCP - General Internal Medicine 03/11/20 Eduardo Garcia MD [address] [place], [place] Insurance Assigned Provider 08/31/23 Leonor Rose MD [address] [place] [address] Neurosurgeon Neurosurgery 05/22/19 Familia Contreras MD [address] [place] [phone] Physical Therapist Physical Medicine and Rehabilitation 05/22/19 Jeyson Hu MD [address] [place] [address] Internal Medicine 12/14/19 Jus Liu MD [address] [place] [address] [place] [address] Gastroenterology 12/29/19 Joe Shah MD [address] [place] [phone] Orthopedic Surgery 04/18/20 Jj Desai MD [address] [place] [address] Dr [facility] [place] [address] General Surgery 05/31/20 documented as of this encounter Additional Source Comments The information contained in this document represents components of the legal health record. It is not the complete legal health record.[facility]
--- OUTSIDE RECORDS SUMMARY | 2025-03-09 12:37 | XMS_ITS | Encounter Summary ---
Author Organization [employer] Address [address] [facility] [address] 7t [place] [address] Care Team Providers Care Preload Supervisor Name Role Phone Unavailable Primary Care Provider Unavailabl e Encounter Details Date Type Department Care Team (Latest Contact Info) Description 04/29/2019 Abstract [facility] CONVERSIONS Dental, Provider, DDS Social [...]
--- OUTSIDE RECORDS SUMMARY | 2025-03-09 12:37 | XMS_ITS | Encounter Summary ---
Author Organization [facility] Address [address] [facility] [address] [place] [address] Phone Care Team Providers Care Production Operator Name Role Phone Eduardo Garcia MD Unavailable Leonor Rose MD Unavailable [phone] Familia Contreras MD Unavailable [phone] Jeyson Hu MD Unavailable [phone] Jus Liu MD Unavailable [phone] Eduardo Garcia MD Primary Care Provider [phone] Joe Shah MD Unavailable [phone] Jj Desai MD Unavailable [phone] Reason for Visit * Reason Comments Medication Refill Encounter Details Date Type Department Care Team (Late st Contact Info) Description 03/07/2025 Refill [facility] Internal Medicine [address] [place], [place] [phone] Eduardo Garcia MD [address] [place], [place] [phone] [email or web address] Medication Refill Social History Tobacco Use Types Packs/Day Years [...] high school, GED, job training, learning the [place] language, technical skills, or developing parenting skills)? [...] as of this encounter Progress Notes * Meche Pan CMA - 03/09/2025 9:50 AM EDT Rx Care Gap Status - Instructions for Clinical Staff (prescriber discretion applies): > Mismatch review guide > N/a - No action needed Visit Info Last visit: 02/15/2025 Eduardo Garcia MD - Internal Medicine [facility] > Requested f/u: Return in about 3 months (around 05/17/2025). Upcoming visit: 05/14/2025 Eduardo Garcia MD - Internal Medicine [facility] ACTIONS TAKEN BY Meche Pan CMA - Criteria met. Vitamins, Minerals, Supplements, OTCs Rx Protocol - cholecalciferol (vitamin D3) Criteria met; renew for up to 12 months. Visit in the past 24 months: Yes documented in this encounter Plan of Treatment Upcoming Encounters Date Type Department Care Team (Late st Contact Info) Description 05/14/2025 11:30 AM EST Office Visit [facility] Internal Medicine [address] [place] [address] Eduardo Garcia MD [address] [place] [phone] [email or web address] 10/04/2025 11:00 AM EDT Office Visit [facility] Internal Medicine [address] [place] [address] Eduardo Garcia MD [address] [place] [address] documented as of this encounter Visit Diagnoses Not on filedocumented in this encounter Additional Health Concerns Assessment Noted Time PHQ-2 Depression Total Score: 1 09/03/19 25 4:24 PM EDT documented as of this encounter Care Teams Production Operator Relationship Specialty Start Date End Date Eduardo Garcia MD [address] [place] [address] PCP - General Internal Medicine 03/11/20 Eduardo Garcia MD [address] [place] [address] [email or web address] Insurance Assigned Provider 08/31/23 Leonor Rose MD [address] [place] [address] Neurosurgeon Neurosurgery 05/22/19 Familia Contreras MD [address] [place] [address] [phone] Physical Therapist Physical Medicine and Rehabilitation 05/22/19 Jeyson Hu MD [address] [place] [address] [phone] Internal Medicine 12/14/19 Jus Liu MD [address] [place] [address] [place] [address] Gastroenterology 12/29/19 Joe Shah MD [address] [place] [address] [phone] Orthopedic Surgery 04/18/20 Jj Desai MD [address] [place] [address] [place] [address] General Surgery 05/31/20 documented as of this encounter Additional Source Comments The information contained in this document represents components of the legal health record. It is not the complete legal health record.[facility]
--- OUTSIDE RECORDS SUMMARY | 2025-03-09 12:38 | XMS_ITS | Encounter Summary ---
Author Organization [employer] Address [address] [facility] 7t [place] [address] Care Team Providers Care Sugar Drier Name Role Phone Unavailable Primary Care Provider Unavailabl e Reason for Visit * Reason Onset Date Comments Appointment 11/19/2022 Encounter Details Date Type Department Care Team ([facility] st Contact Info) Description 11/19/[address] [facility] ADULT DENTAL [address] [place] [address] Alisha Rodas DDS [address] [place], [place] [phone] Appointment Social History Tobacco Use Types Packs/Day [...]
--- OUTSIDE RECORDS SUMMARY | 2025-03-09 12:38 | XMS_ITS | Encounter Summary ---
Author Organization [facility] Address [address] [facility] [address] [place] [address] Phone Care Team Providers Care Gold Blower Name Role Phone Eduardo Garcia MD Unavailable [phone] Leonor Rose MD Unavailable [phone] Familia Contreras MD Unavailable [phone] Jeyson Hu MD Unavailable Jus Liu MD Unavailable [phone] Eduardo Garcia MD Primary Care Provider Joe Shah MD Unavailable [phone] Jj Desai MD Unavailable [phone] Encounter Details Date Type Department Care Team (Late st Contact Info) Description 02/18/2025 Orders Only [facility] Internal Medicine [address] [place] [address] Provider, MD Chai [address] [place] [phone] Social History Tobacco Use Types Packs/Day [...] high school, GED, job training, learning the [place] language, technical skills, or developing parenting skills)? [...] Description 05/14/2025 11:30 AM EST Office Visit [facility] Internal Medicine [address] [place] [address] Eduardo Garcia MD [address] [place], [place] 10/04/2025 11:00 AM EDT Office Visit [facility] Internal Medicine [address] [place], [place] [phone] Eduardo Garcia MD [address] [place], [place] [email or web address] documented as of this encounter Procedures Procedure Name Priority Date/Time Associated Diagnosis Comments OUTSIDE LAB Routine 01/17/2025 8:25 AM EDT documented in this encounter Results * Outside Lab (01/17/2025 8:25 AM EDT) us Historical Provider LAB BLOOD ORDERABLES Ruth l Result documented in this encounter Visit Diagnoses Not on filedocumented in this encounter Additional Health Concerns Assessment Noted Time PHQ-2 Depression Total Score: 1 09/03/19 25 4:24 PM EDT documented as of this encounter Care Teams Gold Blower Relationship Specialty Start Date End Date Eduardo Garcia MD [address] [place], [place] PCP - General Internal Medicine 03/11/20 Eduardo Garcia MD [address] [place], [place] Insurance Assigned Provider 08/31/23 Leonor Rose MD [address] [place] [address] Neurosurgeon Neurosurgery 05/22/19 Familia Contreras MD [address] [place] [phone] Physical Therapist Physical Medicine and Rehabilitation 05/22/19 Jeyson Hu MD [address] [place] [address] Internal Medicine 12/14/19 Jus Liu MD [address] [place] [address] [address] Gastroenterology 12/29/19 Joe Shah MD [address] [place] [address] [phone] Orthopedic Surgery 04/18/20 Jj Desai MD [address] [place] [address] Dr ELLER [address] [place] [address] General Surgery 05/31/20 documented as of this encounter Additional Source Comments The information contained in this document represents components of the legal health record. It is not the complete legal health record.[facility]
--- OUTSIDE RECORDS SUMMARY | 2025-03-09 12:38 | XMS_ITS | Encounter Summary ---
Author Organization [email or web address] Address [address] [facility] 7t [place] [address] Care Team Providers Care Manager Clinic Name Role Phone Unavailable Primary Care Provider Unavailabl e Reason for Visit * Reason Onset Date Comments medication 08/27/2023 Encounter Details Date Type Department Care Team (Late st Contact Info) Description 08/27/2023 Telephone [facility] ADULT DENTAL [address] [place] [address] Alisha Rodas DDS [address] [place], [place] [phone] medication Social History Tobacco Use Types Packs/Day [...]
== END 2025-03-09 11:30 | disposition home or self-care (01) ==
LOC: HO.ENCR 10:42
PROVIDERS: PCP Internal Medicine; Visit Provider Registered Nurse Diabetes Educator
DX: E11.9 Type 2 diabetes mellitus without complications (principal)

== ENCOUNTER → 2025-03-09 10:42 | Outpatient (BNVA) | payer MEDICARE, MEDICAID, SELFPAY ==
[2024-07-15 09:17] VITALS: BP 128/60; BMI 27.1
== END ==
PROVIDERS: PCP Internal Medicine; Visit Provider Registered Nurse Diabetes Educator
DX: E11.9 Type 2 diabetes mellitus without complications (principal); Z79.4 Long term (current) use of insulin
CPT/HCPCS: 99211

== ENCOUNTER 2025-03-23 14:28 | Outpatient (AMB) | payer MEDICARE, MEDICAID, SELFPAY ==
[2024-07-15 09:17] VITALS: BP 128/60; BMI 27.1
[2025-03-23 14:36] VITALS: BP 120/52; PULSE 88; BMI 25.4
--- NOTE | 2025-03-23 14:36 | MHC.OFFVIS ---
Vital Signs 03/23/25 14:36 Height 5 ft 2 in Weight 138 lb 14.259 oz BMI 25.4 BP 120/52 L Blood Pressure Location Lt brachial Position Sitting Pulse 88 Pulse Source Pulse Oximeter Intake Visit Reasons: r/s 02/10/25 4 mos followup Food Mixer Repairer Required: No Accompanied by: Self / Same As Patient Allergies duloxetine (From CYMBALTA) Allergy (Intermediate, Verified 03/23/25 14:39) SHAKINESS Medication List - Last Reconciled 03/23/25 by Jonathan Allred NP acetaminophen (Tylenol Extra Strength) 500 mg PO Q6H PRN albuterol sulfate 90 mcg/actuation 90 mcg inhalation BID PRN alcohol swabs (Alcohol Prep Pads) 1 pad topical TID ascorbic acid (vitamin C) 1,000 mg (2 x 500 mg) PO DAILY aspirin 81 mg PO DAILY azathioprine 75 mg (1.5 x 50 mg) PO DAILY blood sugar diagnostic (FreeStyle Lite Strips) As directed cholecalciferol (vitamin D3) 25 mcg PO DAILY empagliflozin (Jardiance) 25 mg PO DAILY esomeprazole magnesium 40 mg PO BID fluticasone propionate 50 mcg/actuation 50 mcg intranasal DAILY PRN FreeStyle Leobardo 3 Plus Sensor (blood-glucose sensor) every 15 days NS FreeStyle Leobardo 3 Clyde (blood-glucose,award clerk,cont) As directed for use with freestyle 3 sensors NS insulin aspart U-100 (Novolog FlexPen U-100 Insulin aspart) 16 units (0.16 mL) subcut DAILY 30 days insulin degludec (Tresiba FlexTouch U-100 insulin) 10 units (0.1 mL) subcut DAILY 30 days lancets (TRUEplus Lancets) As directed lisinopril 2.5 mg PO DAILY lorazepam 0.5 mg PO QID PRN metformin ER 1,000 mg PO BID nortriptyline 10 mg PO BEDTIME PRN nut.tx.gluc intol,lf,soy-fiber 0.08-1.5 gram-kcal/mL (Glucerna 1.5 Shaheen) 1 ea PO BID ondansetron 4 mg PO Q6-8H PRN oxycodone 5 mg PO Q4-6H PRN pen needle, diabetic twice daily rosuvastatin 5 mg PO DAILY simethicone (Gas Relief (simethicone)) 125 mg PO BID-QID PRN sucralfate 10 mL PO BID thiamine HCl (vitamin B1) 100 mg PO DAILY walker As directed HPI Comments Details: This is a 64-year-old female patient coming in for a follow-up visit. Patient with medical history of hypertension, diabetes, hyperlipidemia, coronary artery disease status post RCA stenting 2021 and GERD. Patient reports ongoing GI issues and is regularly following with GI. Other than this, patient is denying any exertional chest pain, shortness of breath, palpitations, dizziness, orthopnea, PND, leg edema, presyncope or syncope. Patient is reporting compliance with all her medications. [facility] Medical History Trigger finger, left ring finger Cirrhosis Antiphospholipid antibody syndrome Leg pain, right Abdominal bloating Lupus Arthritis POOL (dyspnea on exertion) Gallstones Cirrhosis Nonalcoholic steatohepatitis (SHARMA) Autoimmune hepatitis High blood pressure Fibromyalgia Diabetes Surgical History History of esophagogastroduodenoscopy (EGD) History of heart artery stent Hx of cholecystectomy Hx of endoscopy History of colonoscopy History of shoulder surgery History of cataract surgery (2010) History of repair of right rotator cuff (08/2011) History of cervical discectomy (07/2009) History of carpal tunnel release Family History Father History of diabetes mellitus, type II History of hypertension History of heart bypass surgery Mother History of diabetes mellitus, type II Brother History of gout Paternal Uncle Cancer Paternal Aunt Cancer Social History Household Members: None Housing: Apartment Are you a primary care management associate to a significant other at home: No 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 have visiting nurse or other home services: No Alcohol intake: never Patient Tobacco Use Status: Never used Tobacco service: No Current occupational status: disabled Review of Systems Const Denies daytime sleepiness, Denies difficulty sleeping, Denies snoring, Denies stops breathing during sleep and Denies weakness Card Denies chest pain, Denies rapid heart rate, Denies irregular heart rhythm, Denies claudication, Denies leg edema, Denies lightheadedness, Denies palpitations, Denies dyspnea, Denies dyspnea on exertion, Denies orthopnea, Denies paroxysmal nocturnal dyspnea and Denies slow heart rate Resp Denies cough, Denies dyspnea, Denies dyspnea on exertion and Denies snoring GI Reports no additional complaints, Denies hematochezia, Denies change in stool character and Denies dyspepsia Musc Denies abnormal gait, Denies muscle weakness and Denies numbness Neuro Denies abnormal gait, Denies numbness and Denies weakness Endo Denies palpitations Physical Exam Vital Signs: Last Vital Signs Pulse 88 03/23/25 14:36 BP 120/52 L 03/23/25 14:36 BMI result Body Mass Index 25.4 Const General: cooperative, healthy appearing, comfortable and no acute distress Orientation/consciousness: patient oriented x3 HEENT Head: Yes normal to inspection Neck Neck: Yes normal visual inspection, Yes trachea midline and Yes supple Chest Chest palpation & inspection: normal inspection of the chest Resp Effort & Inspection: normal respiratory effort Auscultation: clear to auscultation bilaterally, no crackles, no rales, no rhonchi and no wheezes Cardio Jugular venous distension: no JVD Palpation: normal PMI Rate: regular rate Rhythm: regular rhythm Heart sounds: S1 normal heart sound present, S2 normal heart sound present, no click, no gallops, no murmurs and no rubs Peripheral pulses: Peripheral pulses 2+ throughout GI Inspection: Yes normal to inspection Palpation (GI): Soft to palpation Auscultation: normal bowel sounds Skin General skin exam: no rashes or lesions noted Neuro General: patient oriented x3 Extrem General: Yes normal to inspection, No no pedal edema and No calf tenderness Psych Appearance: grossly normal Mental Status: mental status grossly normal Speech and movement: Normal speech and movement present Assessment & Plan Assessment & Plan (1) Coronary arteriosclerosis: Comment: right coronary stent - 11/2021 Code(s): I25.10 - Atherosclerotic heart disease of [place] coronary artery without angina pectoris Category: Medical Plan: 12/05/2021-patient underwent cardiac catheterization that showed 30% stenosis of the left main, mild luminal irregularities in the lad and left circumflex, 95 % stenosis in the mid RCA status post drug-eluting stent in the RCA. 03/24/2024-echo study showed normal EF 59%, with no valvular or wall motion abnormalities. Continue lifelong aspirin therapy. Continue current regimen of metoprolol, rosuvastatin, Jardiance, and lisinopril. (2) Diabetes: Comment: NIDDM Code(s): E11.9 - Type 2 diabetes mellitus without complications Category: Medical Plan: Most recent A1c at 7.3%. Continue with the aggressive diabetes management with an A1c goal less than 7%. Followed by endocrinology. (3) Hyperlipidemia: Code(s): E78.5 - Hyperlipidemia, unspecified Category: Medical Plan: Most recent LDL within goal of less than 70. Continue Crestor as patient was unable to tolerate atorvastatin. We will update lipid profile before patient returns. (4) Hypertension: Code(s): I10 - Essential (primary) hypertension Plan: Blood pressure today is well-controlled. Continue current regimen. Advised monitoring blood pressures at home with a goal less than 130/80. Advised on heart healthy diet, regular exercise as tolerated, med compliance, and aggressive management of vascular risk factors. Patient will follow up in [address] Smith. In the interim, patient will call the office with any concerns or change in symptoms. This note was generated using voice recognition software. While every effort has been made to ensure accuracy and proper lan support specialist, there may be occasional errors that could affect the content or meaning of the described symptoms. Orders: Orders Lipid Panel Today I25.10 - Atherosclerotic heart disease of [place] coronary artery without angina pectoris Coding Level of Care Code Est Pt Level 4 (27116) Complex EM visit Add On G2211 Diagnoses Coronary arteriosclerosis I25.10 Diabetes E11.9 Hyperlipidemia E78.5 Hypertension I10 Time Spent (min) 32 Comment Time spent in reviewing the chart, test results, assessment, counseling and documentation.
--- OUTSIDE RECORDS SUMMARY | 2025-03-23 18:51 | XMS_ITS | Encounter Summary ---
Author Organization [employer] Address [address] [facility] [address] [place] [address] Care Team Providers Care Business Services Coordinator Name Role Phone Unavailable Primary Care Provider Unavailabl e Encounter Details Date Type Department Care Team (Latest Contact Info) Description 04/29/2019 Abstract [facility] CONVERSIONS Dental, Provider, DDS Social History [...]
--- OUTSIDE RECORDS SUMMARY | 2025-03-23 18:51 | XMS_ITS | Encounter Summary ---
Author Organization [employer] Address [address] [facility]t [place] [address] Care Team Providers Care Brushing Operator Name Role Phone Unavailable Primary Care Provider Unavailabl e Encounter Details Date Type Department Care Team (Latest Contact Info) Description 09/06/2021 Abstract [facility] CONVERSIONS Dental, Provider, DDS Social [...]
--- OUTSIDE RECORDS SUMMARY | 2025-03-23 18:51 | XMS_ITS | Clinical Summary ---
Author Organization [employer] Address [address] [facility] 7t [place] [address] Care Team Providers Care Glass Curvature Gauger Name Role Phone Unavailable Primary Care Provider [...] (SHARMA) 08/13/2023 Atherosclerotic heart diseas e of [place] coronary artery with other forms of angina [...] [facility] MEDICAID [facility] ADULT
--- OUTSIDE RECORDS SUMMARY | 2025-03-23 18:51 | XMS_ITS | Encounter Summary ---
Author Organization [facility] Address [address] [facility] [address] [place] [address] Phone Care Team Providers Care Company Controller Name Role Phone Eduardo Garcia MD Unavailable [phone] Leonor Rose MD Unavailable [phone] Familia Contreras MD Unavailable [phone] Jeyson Hu MD Unavailable Jus Liu MD Unavailable [phone] Eduardo Garcia MD Primary Care Provider [phone] Joe Shah MD Unavailable [phone] Jj Desai MD Unavailable [phone] Encounter Details Date Type Department Care Team (Late st Contact Info) Description 02/23/2025 Orders Only [facility] Internal Medicine [address] [place] [address] Provider, MD Chai [address] [place] [address] Social History Tobacco Use Types Packs/Day [...] high school, GED, job training, learning the Monegasque language, technical skills, or developing parenting skills)? [...] Description 05/14/2025 11:30 AM EST Office Visit [facility] Internal Medicine [address] [place] [address] Eduardo Garcia MD [address] [place], [place] [email or web address] 10/04/2025 11:00 AM EDT Office Visit [facility] Internal Medicine [address] [place], [place] [phone] Eduardo Garcia MD [address] [place], [place] [email or web address] documented as of this [...] documented as of this encounter Care Teams Company Controller Relationship Specialty Start Date End Date Eduardo Garcia MD [address] [place], [place] PCP - General Internal Medicine 03/11/20 Eduardo Garcia MD [address] [place], [place] Insurance Assigned Provider 08/31/23 Leonor Rose MD [address] [place] [address] Neurosurgeon Neurosurgery 05/22/19 Familia Contreras MD [address] [place] [phone] Physical Therapist Physical Medicine and Rehabilitation 05/22/19 Jeyson Hu MD [address] [place] [address] Internal Medicine 12/14/19 Jus Liu MD [address] [place] [address] [place] [address] Gastroenterology 12/29/19 Joe Shah MD [address] [place] [phone] Orthopedic Surgery 04/18/20 Jj Desai MD [address] [place] [address] Dr [facility]ER [facility] [place] [address] General Surgery 05/31/20 documented as of this encounter Additional Source Comments The information contained in this document represents components of the legal health record. It is not the complete legal health record.[facility]
--- OUTSIDE RECORDS SUMMARY | 2025-03-23 18:51 | XMS_ITS | Encounter Summary ---
Author Organization [employer] Address 75 [facility] 7t [place] [address] Care Team Providers Care Aviation Electronic Warfare Operator Name Role Phone Unavailable Primary Care Provider Unavailabl e Reason for Visit * Reason Onset Date Comments medication 08/27/2023 Encounter Details Date Type Department Care Team (Late st Contact Info) Description 08/27/2023 Telephone [facility] ADULT DENTAL [address] [place] [address] Alisha Rodas DDS [address] [place], [place] [phone] medication Social History Tobacco Use Types Packs/Day [...]
--- OUTSIDE RECORDS SUMMARY | 2025-03-23 18:51 | XMS_ITS | Clinical Summary ---
Author Organization [facility] Address [address] [address] Phone Care Team Providers Care Florist Manager Name Role Phone Eduardo Garcia MD Unavailable [...] 2 (two) times a day. Active ascorbic salw-qboaeaxx-xzw (EMERGEN-C) 1,000 mg PwEP Take 1 packet [...] BY MOUTH TWICE DAILY 120 tablet 11 Active lisinopril (PRINIVIL,ZESTRIL ) 2.5 MG tabletIndications :Hypertension TAKE 1 TABLET BY MOUTH EVERY DAY 30 tablet 11 Active aspirin 81 MG EC tablet TAKE [...] morning. Active ondansetron (ZOFRAN-ODT) 4 MG disintegrating tabletIndications :Nausea DISSOLVE 1 TABLET ON TONGUE EVERY 8 HOURS NEEDED FOR NAUSEA 30 tablet 3 Active TRESIBA FLEXTOUCH U-100 injection pen Inject 10 Units under the skin nightly at bedtime. 025 Active ALCOHOL PREP PADS PadMIndications:T ype 2 diabetes mellitus without complications USE THREE TIMES DAILY 100 each Active VENTOLIN HFA 90 mcg/actuation inhaler INHALE 2 PUFFS BY MOUTH EVERY 6 HOURS NEEDED FOR WHEEZING OR SHORTNESS OF BREATH 18 g 3 025 Active fluticasone propionate (FLONASE) 50 mcg/actuation nasal sprayIndications: Allergic rhinitis due to other allergic trigger, unspecified seasonality 2 sprays by Nasal route daily as needed for allergies. 16 g 3 025 Active JARDIANCE 25 mg tabletIndications :Type 2 diabetes mellitus without complications TAKE 1 TABLET BY MOUTH EVERY DAY 30 tablet 2 025 Active cholecalciferol (VITAMIN D3) 25 MCG (1,000 unit) tablet TAKE 1 TABLET BY MOUTH EVERY DAY 90 tablet 3 10/14/2 025 Active oxyCODONE 5 MG immediate release tabletIndications :Bilateral low back pain with right-sided sciatica Take 1 tablet (5 mg total) by mouth every 4 (four) hours as needed (low back pain with righ sided sciatica). partial fill okay upon patient request No more than 5 a day 140 tablet 025 2024 Active cholecalciferol (VITAMIN D3) 25 MCG (1,000 unit) tablet take 1 tablet by mouth every day 30 tablet 11 024 2024 Discontinued oxyCODONE 5 MG immediate release tabletIndications :Bilateral low back pain with right-sided sciatica Take 1 tablet (5 mg total) by mouth every 4 (four) hours as needed (low back pain with righ sided sciatica). partial fill okay upon patient request No more than 5 a day 140 tablet 025 2024 Discontinued(R eorder) Active Problems Problem Noted Date Diagnosed Date [...] assess. Advised that she should contact her signing agent regarding her difficulties with her insulin levels. [...] I advised that she should contact her haul truck driver regarding the symptoms as well so that [...] need 02/18/2024 Atherosclerotic heart diseas e of [place] coronary artery with other forms of angina pectoris 02/21/2023 Systemic lupus erythematosus 09/21/2019 Nocturia 12/13/2017 Bilateral low back pain with bilateral sciatica 06/06/2017 Cervical radiculopathy 06/06/2017 Depression 06/06/2017 Respiratory abnormality 06/06/2017 Fatigue 06/06/2017 Other cirrhosis of liver 06/06/2017 Gastroesophageal reflux disease 06/06/2017 Overview (01/29/2024): Fol w [facility] seen 01/02/24 Dr. Liu - pt [...] Type Department Care Team Description 03/09/2025 Refill [facility] Internal Medicine [address] [place] [address] Eduardo Garcia MD Medication Refill (CSRP) 03/07/2025 Refill [facility] Internal [facility] [address] [place] [address] Eduardo Garcia MD Medication Refill 02/23/2025 Orders Only [facility] Internal [facility] [address] [place] [address] Chai Gold MD 02/18/2025 Orders Only [facility] Internal [facility] [address] [place] [address] Chai Gold MD 02/18/2025 Refill [facility] Internal [facility] [address] [place] [address] Eduardo Garcia MD Medication Refill 02/15/2025 3:30 PM EDT Office Visit [facility] Internal Medicine [address] [place] [address] Eduardo Garcia MD Miranda-Leon, [place] Benign essential hypertension (Primary Dx); Chest wall pain; Chronic left shoulder pain; Need for prophylactic vaccination and inoculation against influenza; Allergic rhinitis due to other allergic trigger, unspecified seasonality; Atherosclerotic heart disease of [place] coronary artery with other forms of angina pectoris; Type 2 diabetes mellitus without complication, without long-term current use of insulin 02/01/2025 Refill [facility] Internal Medicine [address] [place] [address] Eduardo Garcia MD Medication Refill (CSRP) 01/22/2025 Telephone [facility] [address] [place] [address] Eduardo Garcia MD Results 01/21/2025 11:47 AM EDT - 01/21/2025 11:59 PM EDT Hospital Encounter [facility] [address] [place] [address] Renetta Enriquez PA-C Discharge Disposition: Home or Self Care 01/21/2025 11:20 AM EDT Office Visit [facility] [address] [place] [address] Renetta Enriquez PA-C Shakiness (Primary Dx); Gastroesophageal reflux disease, unspecified whether esophagitis present 01/21/2025 Telephone [facility] Internal Medicine [address] [place] [address] Eduardo Garcia MD Follow-up 01/12/2025 Orders Only [facility] Internal Medicine [address] [place] [address] ProviderChai MD 01/08/2025 Refill [facility] Internal [facility] [address] [place] [address] Eduardo Garcia MD Medication Refill 01/04/2025 Refill [facility] Internal Medicine [address] [place] [address] Eduardo Garcia MD Medication Refill (CSRP) from Last 3 Months Immunizations Immunization Administration [...] high school, GED, job training, learning the Kyrgyz language, technical skills, or developing parenting skills)? [...] Description 05/14/2025 11:30 AM EST Office Visit [facility] Internal Medicine [address] [place] [address] Eduardo Garcia MD [address] [place] [address] [email or web address] 10/04/2025 11:00 AM EDT Office Visit [facility] Internal Medicine 40 [facility] [place] [address] Eduardo Garcia MD [address] [place] [address] [email or web address] Health Maintenance Due Date Last Done Comments [...] HM MAMMOGRAPHY Routine 11/24/2024 9:32 AM EDT HM DIABETES EYE EXAM FOR RESULT ENTRY [...] EDT) SODIUM 137 133 - 146 mmol/L [facility] POTASSIUM 4.4 3.3 - 5.1 mmol/L [facility] CHLORIDE 100 96 - 108 mmol/L [facility] CO2 23 21 - 35 mmol/L [facility] BUN 12 6 - 19 mg/dL [facility] CREATININE 0.50 0.5 - 1.5 mg/dL [facility] GLUCOSE 130(H) 70 - 99 mg/dL [facility] ALBUMIN 4.2 3.9 - 4.8 g/dL [facility] TOTAL PROTEIN 9.9(H) 6.5 - 8.0 g/dL [facility] CALCIUM 9.8 8.4 - 10.3 mg/dL [facility] ALKALINE PHOSPHATASE 148(H) 39 - 117 U/L [facility] TOTAL BILIRUBIN 0.6 0.0 - 1.2 mg/dL [facility] AST 35 0 - 37 U/L [facility] ALT 21 0 - 40 U/L [facility] GLOBULIN 5.7(H) 1 - 4.8 g/dL [facility] EGFR 105 >59 mL/min/1.7 3m2 [facility] Comment:Estimated glomerular filtration rate calculated using the CKD-EPI refit equation. ANION GAP 18 10 - 20 mmol/L [facility] Blood 01/21/2025 11:4 7 AM EDT 01/21/2025 11:52 AM EDT [facility] LAB BLOOD ORDERABLES Final R esult Performing Organization Address City/[facility]/ZIP Co de Phone Number [address] [address] * (ABNORMAL) Iron and iron binding capacity (01/21/2025 11:47 AM EDT) IRON 42 30 - 160 ug/dL [facility] IRON BINDING CAPACITY 415 228 - 428 ug/dL [facility] TRANSFERRIN SATURAT. 10(L) 15 - 50 % [facility] Blood 01/21/2025 11:4 7 AM EDT 01/21/2025 11:52 AM EDT [facility] LAB BLOOD ORDERABLES Final R esult Performing Organization Address City/[facility]/ZIP Co de Phone Number [address] [address] * (ABNORMAL) CBC and differential (01/21/2025 11:47 AM EDT) WBC 5.97 4.00 - 11.00 K/uL [facility] RBC 4.51 4.00 - 5.20 M/uL [facility] HGB 12.3 12.0 - 16.0 g/dL [facility] HCT 39.9 36.0 - 46.0 % [facility] PLT 200 150 - 450 K/uL [facility] MCV 88.5 80.0 - 100.0 fL [facility] MCH 27.3 27.0 - 31.0 pg [facility] MCHC 30.8(L) 32.0 - 36.0 g/dL [facility] RDW 14.7(H) 11.5 - 14.5 % [facility] MPV 11.1 8.4 - 12.0 fL [facility] NRBC 0.00 0.00 /100 WBCs [facility] ABSOLUTE NRBC 0.00 0.00 K/uL [facility] DIFF METHOD Auto [facility] NEUTS 67.9 48.0 - 76.0 % [facility] LYMPHS 18.1 18.0 - 41.0 % [facility] MONOS 10.4 4.0 - 11.0 % [facility] EOS 1.8 0.0 - 5.0 % [facility] BASOS 1.5 0.0 - 1.5 % [facility] Granulocytes, immature (%) 0.3 0.0 - 0.9 % [facility] ABSOLUTE NEUTS 4.05 1.92 - 7.60 K/uL [facility] ABSOLUTE LYMPHS 1.08 0.72 - 4.10 K/uL [facility] ABSOLUTE MONOS 0.62 0.16 - 1.10 K/uL [facility] ABSOLUTE EOS 0.11 0.00 - 0.50 K/uL [facility] ABSOLUTE BASOS 0.09 0.00 - 0.15 K/uL [facility] Granulocytes, immature 0.02 0.00 - 0.09 K/uL [facility] Blood 01/21/2025 11:4 7 AM EDT 01/21/2025 11:52 AM EDT [facility] LAB BLOOD ORDERABLES Final R esult Performing Organization Address City/[facility] Co de Phone Number [address] [address] * Ferritin (01/21/2025 11:47 AM EDT) FERRITIN 20 13 - 150 ug/L [facility] Blood 01/21/2025 11:4 7 AM EDT 01/21/2025 11:52 AM EDT [facility] LAB BLOOD ORDERABLES Final R esult Performing Organization Address City/[facility] Co de Phone Number [address] [address] * Outside Lab (01/17/2025 8:25 AM EDT) Result [facility] Provider LAB BLOOD ORDERABLES Ruth l Result * Outside US Abdomen Report Only (01/11/2025 9:46 AM EDT) Result [facility] Provider IMG US ABDOMEN Final Res ult * HM MAMMOGRAPHY FOR RESULT ENTRY ONLY (11/24/2024 9:32 AM EDT) [facility] Provider HEALTH MAINTENANCE Final Result * HM DIABETES EYE EXAM FOR RESULT ENTRY ONLY (09/16/2024 2:00 PM EDT) [facility] HEALTH MAINTENANCE Final Result * Outside HbA1c (07/14/2024) Hemoglobin A1c - External 7.8 % Result [facility] LAB BLOOD ORDERABLES Ruth l Result * Outside HDL (07/14/2024) HDL - External 41 40 - 80 mg/dL Result [facility] Provider LAB BLOOD ORDERABLES Ruth l Result * Outside Hepatitis C Virus Screening (05/28/2024) Hepatitis C Screening - External Neg Result [facility] LAB BLOOD ORDERABLES Ruth l Result * Pap Smear (02/07/2022) [facility] CYTOLOGY ORDERABLES Final Result * HM COLONOSCOPY FOR RESULT ENTRY ONLY (05/03/2021) [facility] HEALTH MAINTENANCE Edited Result - [...] [place] [id number] MEDICARE PART A & B [facility] [place] [id number] Advance Directives For more information, please contact: [phone] (9AM - 5PM [facility], Saturday-Saturday) Documents on File Type Date Recorded Patient Applied Psychology Professor Expl anation Healthcare Proxy 08/20/2017 12:27 PM Healt hcare Proxy (In Tuvaluan) Care Teams Florist Manager Relationship Specialty Start Date End Date Eduardo Garcia MD [address] [place] [address] [email or web address] PCP - General Internal Medicine 03/11/20 Eduardo Garcia MD [address] [place] [address] [email or web address] Insurance Assigned Provider 08/31/23 Leonor Rose MD [address] [place] [address] Neurosurgeon Neurosurgery 05/22/19 Familia Contreras MD [address] [place] [address] [phone] Physical Therapist Physical Medicine and Rehabilitation 05/22/19 Jeyson Hu MD [address] [place] [address] Internal Medicine 12/14/19 Jus Liu MD [address] [place] [address] [place] [address] Gastroenterology 12/29/19 Joe Shah MD [address] [place] [address] [phone] Orthopedic Surgery 04/18/20 Jj Desai MD [address] [place] [address] Dr ELLER [address] [place] [phone] General Surgery 05/31/20 Additional Source Comments The information contained in this document represents components of the legal health record. It is not the complete legal health record.[facility]
--- OUTSIDE RECORDS SUMMARY | 2025-03-23 18:51 | XMS_ITS | Encounter Summary ---
Author Organization [facility] Address [address] [facility] [address] [place] [address] Phone Care Team Providers Care Oleomargarine Maker Name Role Phone Eduardo Garcia MD Unavailable [phone] Leonor Rose MD Unavailable [phone] Familia Contreras MD Unavailable [phone] Jeyson Hu MD Unavailable Jus Liu MD Unavailable [phone] Eduardo Garcia MD Primary Care Provider Joe Shah MD Unavailable [phone] Jj Desai MD Unavailable [phone] Encounter Details Date Type Department Care Team (Late st Contact Info) Description 02/18/2025 Orders Only [facility] Internal Medicine [address] [place] [address] Provider, MD Chai [address] [place] [address] Social History Tobacco Use Types Packs/Day [...] high school, GED, job training, learning the [place] language, technical skills, or developing parenting skills)? [...] 05/14/2025 11:30 AM EST Office Visit [facility] Internal Medicine [address] [place] [address] Eduardo Garcia MD [address] [place], [place] 10/04/2025 11:00 AM EDT Office Visit [facility] Internal Medicine [address] [place], [place] [phone] Eduardo Garcia MD [address] [place], [place] [email or web address] documented as of this encounter Procedures Procedure [...] documented as of this encounter Care Teams Oleomargarine Maker Relationship Specialty Start Date End Date Eduardo Garcia MD [address] [place], [place] PCP - General Internal Medicine 03/11/20 Eduardo Garcia MD [address] [place], [place] Insurance Assigned Provider 08/31/23 Leonor Rose MD [address] [place] [address] Neurosurgeon Neurosurgery 05/22/19 Familia Contreras MD [address] [place] [phone] Physical Therapist Physical Medicine and Rehabilitation 05/22/19 Jeyson Hu MD [address] [place] [address] Internal Medicine 12/14/19 Jus Liu MD [address] [place] [address] [address] Gastroenterology 12/29/19 Joe Shah MD [address] [place] [address] [phone] Orthopedic Surgery 04/18/20 Jj Desai MD [address] [place] [address] Dr ELLER [address] [place] [address] General Surgery 05/31/20 documented as of this encounter Additional Source Comments The information contained in this document represents components of the legal health record. It is not the complete legal health record.[facility]
--- OUTSIDE RECORDS SUMMARY | 2025-03-23 18:51 | XMS_ITS | Encounter Summary ---
Author Organization [employer] Address [address] [facility] [address] 7t [place] [address] Care Team Providers Care Gold Wheel Blocker And Polisher Name Role Phone Unavailable Primary Care Provider Unavailabl e Encounter Details Date Type Department Care Team (Latest Contact Info) Description 02/15/2021 Abstract [facility] CONVERSIONS Dental, Provider, DDS Social History Tobacco [...]
--- OUTSIDE RECORDS SUMMARY | 2025-03-23 18:51 | XMS_ITS | Encounter Summary ---
Author Organization [employer] Address [address] 7t [place] [address] Care Team Providers Care Construction Code Administrator Name Role Phone Unavailable Primary Care Provider Unavailabl e Reason for Visit * Reason Onset Date Comments Appointment 09/11/2022 Encounter Details Date Type Department Care Team (Late st Contact Info) Description 09/11/2022 Telephone [facility] ADULT DENTAL [address] [place], [place] [phone] Rich Mancera DDS [address] [place], [place] [phone] Appointment Social History Tobacco Use Types Packs/Day [...]
--- OUTSIDE RECORDS SUMMARY | 2025-03-23 18:51 | XMS_ITS | Encounter Summary ---
Author Organization [employer] Address [address] [facility] 7t [place] [address] Care Team Providers Care Drill Operator Name Role Phone Unavailable Primary Care Provider Unavailabl e Reason for Visit * Reason Onset Date Comments Appointment 11/19/2022 Encounter Details Date Type Department Care Team ([facility] st Contact Info) Description 11/19/2022 Telephone [facility] ADULT DENTAL [address] [place] [address] Alisha Rodas DDS [address] [place], [place] [phone] Appointment Social History Tobacco Use Types Packs/Day [...]
--- OUTSIDE RECORDS SUMMARY | 2025-03-23 18:51 | XMS_ITS | Encounter Summary ---
Author Organization [facility] Address [address] [address] Phone Care Team Providers Care Manager Environmental Affairs Name Role Phone Eduardo Garcia MD Primary Care Provider Eduardo Garcia MD Unavailable Leonor Rose MD Unavailable Familia Contreras MD Unavailable [phone] Jeyson Hu MD Unavailable Jus Liu MD Unavailable Eduardo Garcia MD Primary Care Provider Joe Shah MD Unavailable [phone] Jj Desai MD Unavailable Claudia Acevedo RN Unavailable [phone] Encounter Details Date Type Department Care Team (Latest Contact Info) Description 06/26/2019 Transcribe Orders [facility] Specimen Processing [address] [place] [address] Eduardo Garcia MD [address] [place], [place] [phone] [email or web address] Low back pain with right-sided sciatica, unspecified [...] Description 05/14/2025 11:30 AM EST Office Visit [facility] Internal Medicine [address] [place] [address] Eduardo Garcia MD [address] [place] [address] 10/04/2025 11:00 AM EDT Office Visit [facility] Internal Medicine [address] [place] [address] Eduardo Garcia MD [address] [place] [address] documented as of this encounter Results * (ABNORMAL) Toxicology screen, urine (06/26/2019 8:34 PM EST) Pathologist [facility] URINE CANNABINOIDS NONE DETECTED NONE DETECTED [facility] Comment:Cutoff: 50 ng/mL URINE COCAINE METAB NONE DETECTED NONE DETECTED [facility] Comment:Cutoff: 300 ng/mL URINE AMPHETAMINES NONE DETECTED NONE DETECTED [facility] Comment:Cutoff: 1000 ng/mL URINE METHADONE NONE DETECTED NONE DETECTED [facility] Comment:Cutoff: 300 ng/mL URINE OPIATES NONE DETECTED NONE DETECTED [facility] Comment:Cutoff: 300 ng/mL URINE PHENCYCLIDINE NONE DETECTED NONE DETECTED [facility] Comment:Cutoff: 25 ng/mL URINE OXYCODONE Positive(A) NONE DETECTED [facility] Comment:Cutoff: 100 ng/ml URINE BARBITURATES NONE DETECTED NONE DETECTED [facility] Comment:Cutoff: 300 ng/mL URINE BENZODIAZEPINE NONE DETECTED NONE DETECTED [facility] Comment: Cutoff: 300 ng/mL INTERPRETATION FOR TOXICOLOGY PANEL: These results are unconfirmed and should be used for Medical Treatment purposes only. Urine (Urine) 06/26/2019 8:3 4 PM EST 06/26/2019 8:58 PM EST Eduardo Garcia MD URINE ORDERABLES Final Result [address] [address] documented in this encounter Visit Diagnoses Diagnosis [...] documented as of this encounter Care Teams Manager Environmental Affairs Relationship Specialty Start Date End Date Eduardo Garcia MD [address] [place] [address] PCP - General Internal Medicine 06/21/17 03/10/20 Eduardo Garcia MD [address] [place] [address] PCP - General Internal Medicine 03/11/20 Eduardo Garica MD [address] [place] [address] Insurance Assigned Provider 08/31/23 Leonor Rose MD [address] [place] [address] Neurosurgeon Neurosurgery 05/22/19 Familia Contreras MD [address] [place] [phone] Physical Therapist Physical Medicine and Rehabilitation 05/22/19 Jeyson Hu MD [address] [place] [phone] Internal Medicine 12/14/19 Jus Liu MD [address] [place] [address] Dr mR [address] [place] [phone] Gastroenterology 12/29/19 Joe Shah MD [address] [place] [phone] Orthopedic Surgery 04/18/20 Jj Desai MD [address] [place] [address] Dr ELLER [address] [place] [phone] General Surgery 05/31/20 Claudia Acevedo, RN [address] [place] [address] [phone] [email or web address] PHC Primer Powder Blender WetMonogram Technician 05/04/22 05/23/22 documented as of this encounter Additional Source Comments The information contained in this document represents components of the legal health record. It is not the complete legal health record.[facility]
--- OUTSIDE RECORDS SUMMARY | 2025-03-23 18:51 | XMS_ITS | Encounter Summary ---
Author Organization [employer] Address [address] [facility] 7t [place] [address] Care Team Providers Care Political Science Instructor Name Role Phone Unavailable Primary Care Provider Unavailabl e Reason for Referral * Medications - Closed Specialty Diagnoses / Procedures Referred By Ghada pabon Referred To Contact Alisha Rodas DDS [address] [place] [address] Phone: tel: fax: Referral ID Status Reason Start Date Expiration Date Visits Re quested Visits Authorized [id number] Closed 1 1 Encounter Details Date Type Department Care Team (Late st Contact Info) Description 08/28/2023 Orders Only [facility] ADULT DENTAL [address] [place] [address] Alisha Rodas DDS [address] [place] [address] Social History Tobacco Use Types Packs/Day Years [...]
== END 2025-03-23 15:04 | disposition home or self-care (01) ==
LOC: HO.HCS 14:29
PROVIDERS: PCP Internal Medicine
DX: I25.10 Atherosclerotic heart disease of native coronary artery without angina pectoris (principal); E11.9 Type 2 diabetes mellitus without complications; E78.5 Hyperlipidemia, unspecified; I10 Essential (primary) hypertension
CPT/HCPCS: 99214; G2211

== ENCOUNTER → 2025-03-23 14:28 | Outpatient (BNVA) | payer MEDICARE, MEDICAID, SELFPAY ==
[2024-07-15 09:17] VITALS: BP 128/60; BMI 27.1
== END ==
PROVIDERS: PCP Internal Medicine
DX: I25.10 Atherosclerotic heart disease of native coronary artery without angina pectoris (principal); I10 Essential (primary) hypertension; E11.9 Type 2 diabetes mellitus without complications; E78.5 Hyperlipidemia, unspecified
CPT/HCPCS: 99212

== ENCOUNTER 2025-04-12 09:06 | Outpatient (REF) | payer MEDICARE, MEDICAID, SELFPAY ==
[2024-07-15 09:17] VITALS: BP 128/60; BMI 27.1
[2025-04-12 09:51] LABS: MANUAL DIFF FLAG NO
[2025-04-12 10:42] LABS: Hematocrit 40.2 % (37.0-47.0); Hemoglobin 12.1 g/dl (12.0-16.0); Imm Gran Abs Auto 0.01 X10*3/uL (0.00-0.03); Imm Gran Pct Auto 0.3 % (0.0-0.4); Lymphocytes Absolute Auto 0.9 X10*3/uL (1.2-4.9); Mean Corpuscular HGB Conc 30.1 g/dl (31.0-35.0); Mean Corpuscular Hemoglobin 27.5 pg (27.0-33.0); Mean Corpuscular Volume 91.4 fL (80.0-98.0); NRBC Abs Auto 0.000 X10*3/uL (0.0-0.012); NRBC Pct Auto 0.0 /100WBC (0.0-0.2); Platelet Count 199 X10*3/uL (160-400); Red Blood Count 4.40 X10*6/uL (4.20-5.50); White Blood Count 3.7 X10*3/uL (4.8-10.8)
[2025-04-12 11:35] LABS: Alanine Aminotransferase 22 U/L (0-31); Albumin Level 4.2 g/dL (3.5-5.0); Alkaline Phosphatase 159 U/L (39-117); Anion Gap 12 (12-20); Aspartate Amino Transferase 39 U/L (5-31); Blood Urea Nitrogen 11 mg/dL (9-16); Calcium 9.7 mg/dL (8.4-10.2); Carbon Dioxide 26 mmol/L (22-29); Chloride 102 mmol/L (96-108); Estimated Glomerular Filt Rate > 60; Potassium 4.1 mmol/L (3.3-5.1); Sodium 136 mmol/L (135-145); Total Protein 10.0 g/dL (6.5-8.0)
[2025-04-12 12:19] LABS: Free T4 (Free Thyroxine) 0.98 ng/dL (0.71-1.85)
== END 2025-04-12 09:07 | disposition home or self-care (01) ==
LOC: HO.LAB 09:06
PROVIDERS: PCP Internal Medicine; Referring Provider Internal Medicine Gastroenterology; Visit Provider Internal Medicine Endocrinology, Diabetes & Metabolism
DX: E11.9 Type 2 diabetes mellitus without complications (principal); K74.60 Unspecified cirrhosis of liver; Z79.4 Long term (current) use of insulin; Z79.84 Long term (current) use of oral hypoglycemic drugs
CPT/HCPCS: 36415; 80053; 82947; 83036; 84439; 84443; 85025; 99212

== ENCOUNTER 2025-04-12 09:06 | Outpatient (AMB) | payer MEDICARE, MEDICAID, SELFPAY ==
[2024-07-15 09:17] VITALS: BP 128/60; BMI 27.1
--- NOTE | 2025-04-12 09:14 | MHC.OFFVIS ---
Vital Signs 04/12/25 09:18 Height 5 ft 2 in Weight 134 lb 7.712 oz BMI 24.6 BP 128/60 Blood Pressure Location Lt brachial Position Sitting Pulse 83 Pulse Source Pulse Oximeter Pulse Oximetry (%) 98 Oxygen Delivery Method Room Air Intake Visit Reasons: T2DM Intake Note: Patient present today to follow up on Type 2 Diabetes Mellitus. Patient receives Leobardo 3 Plus supplies through: [employer] Last Diabetic Eye exam: August 2024 Last Podiatry Visit: Does not see a Birth Certificate Clerk Random Glucose: 147 mg/dl HgA1C: 7.4% 04/12/2025 Community Health Planning Director Required: No Accompanied by: Self / Same As Patient Allergies duloxetine (From CYMBALTA) Allergy (Intermediate, Verified 04/12/25 10:49) SHAKINESS Medication List - Last Reconciled 04/12/25 by Joe Magaña MD acetaminophen (Tylenol Extra Strength) 500 mg PO Q6H PRN albuterol sulfate 90 mcg/actuation 90 mcg inhalation BID PRN alcohol swabs (Alcohol Prep Pads) 1 pad topical TID ascorbic acid (vitamin C) 1,000 mg (2 x 500 mg) PO DAILY aspirin 81 mg PO DAILY azathioprine 75 mg (1.5 x 50 mg) PO DAILY blood sugar diagnostic (FreeStyle Lite Strips) As directed cholecalciferol (vitamin D3) 25 mcg PO DAILY empagliflozin (Jardiance) 25 mg PO DAILY esomeprazole magnesium 40 mg PO BID fluticasone propionate 50 mcg/actuation 50 mcg intranasal DAILY PRN FreeStyle Leobardo 3 Plus Sensor (blood-glucose sensor) every 15 days NS FreeStyle Leobardo 3 [place] (blood-glucose,dubbing machine operator,cont) As directed for use with freestyle 3 sensors NS insulin aspart U-100 (Novolog FlexPen U-100 Insulin aspart) 16 units (0.16 mL) subcut DAILY 30 days insulin degludec (Tresiba FlexTouch U-100 insulin) 10 units (0.1 mL) subcut DAILY 30 days lancets (TRUEplus Lancets) As directed lisinopril 2.5 mg PO DAILY lorazepam 0.5 mg PO QID PRN metformin ER 1,000 mg PO BID nortriptyline 10 mg PO BEDTIME PRN nut.tx.gluc intol,lf,soy-fiber 0.08-1.5 gram-kcal/mL (Glucerna 1.5 Shaheen) 1 ea PO BID ondansetron 4 mg PO Q6-8H PRN oxycodone 5 mg PO Q4-6H PRN pen needle, diabetic twice daily rosuvastatin 5 mg PO DAILY simethicone (Gas Relief (simethicone)) 125 mg PO BID-QID PRN sucralfate 10 mL PO BID thiamine HCl (vitamin B1) 100 mg PO DAILY walker As directed HPI Comments Details: [age] YO female who is seen in f/u for T2DM. . Initially diagnosed with T2DM in 2008. Saw endocrinology in the past and was discharged due to normal A1C Was initially started on treatment with: metformin, januvia was ineffective glipizide was causing afternoon lows GLP 1 agonist not recommended due to tight pylorus and chronic acid reflux symptoms. She did complain of abdominal pain for several days in the right upper quadrant which has since resolved and felt she fell to his attributed to drink extra carbonated beverages. No further recurrent and she does have follow up with GI. Current regimen: Tresiba 10 units Novolog 16 units with breakfast Jardiance 25 mg metformin ER 1000mg bid 169 14 day continuous glucose monitor report reviewed Glucose Managment indicator 6.9 % TIme in ranges: 1% very high (above 250) 18 % high ?(181-250) 81 % in range ?(70-180] 0 % low (69-55) 0 % ?very low (below 54) 23.8 Standard Deviation Interpretation: post-prndial elevation after breakfast Treats occasional lows with oj, soda doesn't recheck afterward Family history of T2DM: mother, father, aunts Denies retinopathy: eyes checked yearly, saw optho 09/2024 Has neuropathy, some burning pain does not see podiatry No nephropathy, on low-dose LESLEE inhibitor 07/14/2024 eGFR>60 10/2023 microalbumin less than 5 Has HLD, on statin. Last LDL 67 as measured on 07/14/2024. Has CAD stent 2022 Sees cardiology every 6 months Followed by Rheumatology for lupus Recently seen by diabetes educato [facility] Medical History Trigger finger, left ring finger Cirrhosis Antiphospholipid antibody syndrome Leg pain, right Abdominal bloating Lupus Arthritis POOL (dyspnea on exertion) Gallstones Cirrhosis Nonalcoholic steatohepatitis (SHARMA) Autoimmune hepatitis High blood pressure Fibromyalgia Diabetes Surgical History History of esophagogastroduodenoscopy (EGD) History of heart artery stent Hx of cholecystectomy Hx of endoscopy History of colonoscopy History of shoulder surgery History of cataract surgery (2010) History of repair of right rotator cuff (08/2011) History of cervical discectomy (07/2009) History of carpal tunnel release Family History Father History of diabetes mellitus, type II History of hypertension History of heart bypass surgery Mother History of diabetes mellitus, type II Brother History of gout Paternal Uncle Cancer Paternal Aunt Cancer Social History Household Members: None Housing: Apartment Are you a primary child care nurse to a significant other at home: No 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 have visiting nurse or other home services: No Alcohol intake: never Patient Tobacco Use Status: Never used Tobacco service: No Current occupational status: disabled Physical Exam Vital Signs: Last Vital Signs Pulse 83 04/12/25 09:18 BP 128/60 04/12/25 09:18 Pulse Ox 98 04/12/25 09:18 Oxygen Delivery Method Room Air 04/12/25 09:18 BMI result Body Mass Index 24.6 Const Other: Absence of Cushingoid features. Absence of acromegalic features. Neck exam reveals nl size thyroid about 15 gms. No thyroid nodules palpable. Heart S1 S2, Reg R/R. No M/R G. Skin exam reveals absence of vitiligo or acanthosis nigricans. No edema Visual exam of foot performed. No ulcerations or open lesions. No inter digit maceration or fissuring. + onychomycosis: Left great toe only, no callouses. Sensation intact to monofilament exam. Vibratory sensation is normal with 128 Hz tuning fork. Pulses positive distally Results AMB Hemoglobin A1c AMB Hemoglobin A1c 7.4 % Last Edit by WILLIAM Eastman on 04/12/25 09:32 Results Reviewed Results Reviewed: Laboratory Last Values Glucose (Clinic) 147 mg/dL (60-115) H 04/12/25 09:22 Hgb A1c (Clinic) 7.4 % (4.0-6.0) H 04/12/25 09:26 Assessment & Plan Assessment & Plan (1) Diabetes: Comment: NIDDM Code(s): E11.9 - Type 2 diabetes mellitus without complications Category: Medical Plan: This is a 64 yo female with a hx of Type 2 DM being treated with metformin, Jardiance and basal-bolus insulin with excellent improved glycemic control and known macrovascular complications namely CAD. Plan is to continue the current regimen. Considered started a G LP 1 like Ozempic in light of the CAD the patient has a tight pylorus and GERD and concern is that this would exacerbate this. She will follow up with the primary care diabetes team in 4 months. She should check a lipid profile ordered by a community service technician fasting Orders: Orders AMB Hemoglobin A1c Today E11.9 - Type 2 diabetes mellitus without complications Coding Level of Care Code Est Pt Level 4 (02408) Diagnoses Diabetes E11.9
[2025-04-12 09:18] VITALS: BP 128/60; PULSE 83; O2SAT 98; BMI 24.6
[2025-04-12 09:27] LABS: Glucose, Whole Blood 147 mg/dL (60-115)
== END 2025-04-12 09:30 | disposition home or self-care (01) ==
LOC: HO.ENCR 09:06
PROVIDERS: PCP Internal Medicine; Visit Provider Internal Medicine Endocrinology, Diabetes & Metabolism
DX: E11.9 Type 2 diabetes mellitus without complications (principal)
CPT/HCPCS: 99214

== ENCOUNTER 2025-04-12 10:39 | Outpatient (AMB) | payer MEDICARE, MEDICAID, SELFPAY ==
[2024-07-15 09:17] VITALS: BP 128/60; BMI 27.1
[2025-04-12 10:44] VITALS: BP 147/62; BMI 24.8
--- NOTE | 2025-04-12 10:44 | MHC.OFFVIS ---
Vital Signs 04/12/25 10:44 Height 5 ft 2 in Weight 135 lb 12.876 oz BMI 24.8 BP 147/62 H Blood Pressure Location Lt brachial Position Sitting Intake Visit Reasons: 4 mo f/u Intake Note: Patient in office today in follow up of MRI. CC: Patient reports trouble swallowing and LLQ abd pain. Engraver Lettering Required: No Accompanied by: Self / Same As Patient Allergies duloxetine (From CYMBALTA) Allergy (Intermediate, Verified 04/12/25 10:49) SHAKINESS HPI HPI 4 mo f/u: Details: 64 yr old f here for f/u for AIH RECAP- index visit 04/2019 she was diagnosed with AIH and had been on imuran for 2 yrs (50 mg) but was then changed to 6 tabs MTX weekly and folic acid daily, after imuran stopped but this was recommenced and the MTX stopped due to SE and rising LFT she was dx based on lab work per her report she had liver bx ordered by her ID specialist (she was seeing for assessment of hep c but she doesn;t have it) she had pain since liver bx (02/2019) but does admit maybe it was there before no vomiting but occ nausea sometimes has constipation, which exacerbates her abdo pain mentioned above--stool was hard, and she has to push appetite is not so good, can't say why weight was going down she had been having constipation, on oxycodone 10 mg daily on prednisone for lupus she was given movantik for opiate induced constipation and pentoxyfilin for possible SHARMA she was referred to Dr Desai for gallstones causing abdo pain, and had cholecystectomy 05/2020 h pylori f/u testing has been negative TESTS: she has abn AST/ALT on and off for last several years on review of ReTargeter cbc 02/2019--normal LFT: 12/2018--normal, LFT 06/25-2019 mild AST, ALT elevation LFT: 09/2019--AST36, ALT 42, alk phos--103, bili 0.4 LFT- 11/2019- bili-nml, AST-37, ALT-39, alk phos- 92 LFT 12/2019-- AST-42,ALT,40, GGT 109, alk phos--nml, bili 0.6 HEAVEN 1:1280 ds DNA--pos LFT- 04/19/2020--AST94, ALT 87, alk phos 148, bili 0.5 LFT 08/2020--nml, protein high, Ig levels high, SPEP neg LFT 12/16-- bili 5, AST 96, ALT 239 ( Imuran had been stopped due to v high levels of 6 TG and ^ MMP -->41984) 6 TG <50, 6 MMp 1516 LFT 11/06/23 bili-0.4, AST 44, ALT 27, alk florinda 176, (INR from 08/17--1.0) LFT 06/20 - AST 55, ALT 57, alk phos 177, (INR 1 from 02/17) vitamin A level had been low--improved with replacement BIOPSY: liver bx with grade 1, stage 4 cirrhosis, mixed macro and microvesicular steatosis, and background steatohepatitis IMAGING: MRI 05/18-- adenitis, cirrhosis, no mass lesions, few LNs Upper GI series: moderate GERD< nml stomach and duodenum US 11/2021- cirrhosis, no mass GES- 2021- nml EGD/colonoscopy- 04/2021-- esophagitis, gastritis, h pylori noted, x 1Ta removed, MRI 03/2021-- nodular liver, venous collaterals, MRI 08/2020--stable LN, liver with borderline steatosis, no mass lesions MRI 05/2020--upper abdo LN--stable, cirrhosis of liver noted CT 12/2019--liver calcifications, retroperitoneal LNs, gallstones u/s 10/2019--gallstones, adenomyomatosis, F3-4 elastography u/s 11/2018--coarse liver, no masses, CT 2017--mildly enalrged LN, hepatic granulomas, central mesenteric stranding EGD 04/2019--reflux, no varices EGD 10/17: no varices, patulous LEs, possible gastroparesis -balloon dilation of UES CT 06/20- stable cirrhosis, stable lymphadenopathy, no masses EGD 07/21 Impression/Findings: gastritis patulous GEJ reduced gastric movement and tight pylorus INTERIM: she is still having issues with regurgitation and reflux it can be variable from day to day, recently it has been good she has been trying esomeprazole not sure if its working --still has issues with swallowing taking imuran daily EXAM: GENERAL: The patient is well developed and nontoxic. VITAL SIGNS:see workflow HEENT: Nonicteric sclerae, PERRLA, EOMI. Oropharynx clear. Moist mucous membranes. Conjunctivae appear well perfused. No thyroid mass. CHEST: Chest wall is nontender. HEART: Regular rate and rhythm without murmurs. LUNGS: Clear to auscultation bilaterally. ABDOMEN: Soft, positive bowel sounds, mild tender RUQ, no organomegaly, lipoma felt SKIN: No rash, no excessive bruising, petechiae, or purpura. NEUROLOGIC: Cranial nerves II-XII intact without motor/sensory deficit. joints: no swelling Assessments 1. 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 Gallstones AND ADENOMYOMATOSIS, s/p cholecystectomy by Dr Desai- 3. constipation-opiate related with bloating, maybe causing gastroparesis 4. weight loss, possibly from uncontrolled inflammation and SLE--now weight is more stable PLAN: 1/ restart urosdiol, once a day, increase to BID after 1 week,s she thinks the first time it caused some dizziness 2/ MRI liver in 3-4 monhs 3/ she might benefit from rezdiffra or ozempic, will consider depending on liver tests 4/ might never fully normalize LFT, may have to accept some elevation, will refer for transplant eval if MELD >15 5/ rept EGD with dilation [facility] Medical History Trigger finger, left ring finger Cirrhosis Antiphospholipid antibody syndrome Leg pain, right Abdominal bloating Lupus Arthritis POOL (dyspnea on exertion) Gallstones Cirrhosis Nonalcoholic steatohepatitis (SHARMA) Autoimmune hepatitis High blood pressure Fibromyalgia Diabetes Surgical History History of esophagogastroduodenoscopy (EGD) History of heart artery stent Hx of cholecystectomy Hx of endoscopy History of colonoscopy History of shoulder surgery History of cataract surgery (2010) History of repair of right rotator cuff (08/2011) History of cervical discectomy (07/2009) History of carpal tunnel release Family History Father History of diabetes mellitus, type II History of hypertension History of heart bypass surgery Mother History of diabetes mellitus, type II Brother History of gout Paternal Uncle Cancer Paternal Aunt Cancer Social History Household Members: None Housing: Apartment Are you a primary physician primary care sports medicine to a significant other at home: No 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 have visiting nurse or other home services: No Alcohol intake: never Patient Tobacco Use Status: Never used Tobacco service: No Current occupational status: disabled Physical Exam Vital Signs: Last Vital Signs BP 147/62 H 04/12/25 10:44 BMI result Body Mass Index 24.8 Results AMB Hemoglobin A1c AMB Hemoglobin A1c 7.4 % Last Edit by WILLIAM Eastman on 04/12/25 09:32 Assessment & Plan Assessment & Plan (1) Cirrhosis: Code(s): K74.60 - Unspecified cirrhosis of liver Category: Medical Plan: as above Orders: Orders MR abdomen wo/w con 3 Months K74.60 - Unspecified cirrhosis of liver Coding Level of Care Code Est Pt Level 4 (71049) Diagnoses Cirrhosis K74.60
== END 2025-04-12 11:01 | disposition home or self-care (01) ==
LOC: HO.HGI 10:40
PROVIDERS: PCP Internal Medicine; Visit Provider Internal Medicine Gastroenterology
DX: K74.60 Unspecified cirrhosis of liver (principal)
CPT/HCPCS: 99214

== ENCOUNTER 2025-04-14 08:09 | Outpatient (REF) | payer MEDICARE, MEDICAID, SELFPAY ==
[2024-07-15 09:17] VITALS: BP 128/60; BMI 27.1
--- NOTE | 2025-04-14 08:12 | EMG_ITS ---
Chief complaint: Right hand numbness. History of right CTR 1993 and cervical surgery 2008. Reason for referral: Evaluate for Carpal Tunnel Syndrome Referred by: Ethan TAYLOR Procedure done: Right upper extremity NCS/EMG Precautions and/or limitations: Previous cervical surgery The limb temperature was monitored continuously and remained between 32-36 degrees C during the performance of the NCS. Nerve Conduction Studies Anti Sensory Summary Table ?Stim Site NR Onset (ms) Norm Onset (ms) Peak (ms) Norm Peak (ms) O-P Amp (?V) Norm O-P Amp Site1 Site2 Delta-0 (ms) Dist (cm) Blayne (m/s) Norm Blayne (m/s) Left Median Anti Sensory (2nd Digit) Wrist ? 2.4 3.3 <3.6 16.7 >10 Wrist 2nd Digit 2.4 14.0 58 Left Ulnar Anti Sensory (5th Digit) Wrist ? 2.4 3.0 <3.7 17.8 >15.0 Wrist 5th Digit 2.4 14.0 58 Motor Summary Table ?Stim Site NR Onset (ms) Norm Onset (ms) O-P Amp (mV) Norm O-P Amp iAmp (mV) Amp (1st) (%) Site1 Site2 Delta-0 (ms) Dist (cm) Blayne (m/s) Norm Blayne (m/s) Left Median Motor (Abd Poll Brev) Wrist ? 3.0 <3.9 11.4 >4.5 13.5 100.0 Elbow Wrist 3.6 18.0 50 >45 Elbow ? 6.6 11.1 13.7 97.4 Left Ulnar Motor (Abd Dig Minimi) Wrist ? 2.3 <3.0 7.4 >5 9.1 100.0 B Elbow Wrist 3.0 16.0 53 >45 B Elbow ? 5.3 6.5 8.4 87.8 A Elbow B Elbow 2.0 10.0 50 >45 A Elbow ? 7.3 5.3 7.0 71.6 Comparison Summary Table ?Stim Site NR Peak (ms) Norm Peak (ms) P-T Amp (?V) Site1 Site2 Delta-P (ms) Norm Delta (ms) Left Median/Radial Dig I Comparison (Digit 1 - 10cm) Median ? 2.8 <2.9 67.9 Median Radial 0.2 Radial ? 2.6 <2.8 19.4 EMG ?Side Muscle Nerve Root Ins Act Fibs Psw Amp Dur Poly Recrt Int Pat Comment Left 1stDorInt Ulnar C8-T1 Nml Nml Nml Nml Nml 0 Nml Complete Left FlexCarRad Median C6-7 Nml Nml Nml Nml Nml 0 Nml Complete Left Biceps Musculocut C5-6 Nml Nml Nml Nml Nml 0 Nml Complete Left Triceps Radial C6-7-8 Nml Nml Nml Nml Nml 0 Nml Complete Left Deltoid Axillary C5-6 Nml Nml Nml Nml Nml 0 Nml Complete FINDINGS: All motor and sensory nerves tested showed normal latencies, amplitudes and conduction velocities. Concentric needle EMG was performed in selected muscles of the right upper extremity. Study did not reveal signs of electric abnormalities as shown in the table above. IMPRESSION: 1. This is a normal study. 2. There is no electrodiagnostic evidence for median neuropathy, ulnar neuropathy, brachial plexopathy, or cervical radiculopathy. Thank you for your kind referral. Natalie Rutledge MD, AMBIKA Board Certified, [place] Board [employer] and Rehabilitation (ABPMR) Board Certified, [place] Board of Electrodiagnostic Medicine (ABEM) CODIN [address] 1 extremity MTDD
--- OUTSIDE RECORDS SUMMARY | 2025-04-14 15:42 | XMS_ITS | Encounter Summary ---
Author Organization [employer] Address [address] [facility] 7t [place] [address] Care Team Providers Care Director Fraud Name Role Phone Unavailable Primary Care Provider Unavailabl e Reason for Visit * Reason Onset Date Comments Appointment 11/19/2022 Encounter Details Date Type Department Care Team ([facility] st Contact Info) Description 11/19/2022 Telephone [facility] ADULT DENTAL [address] [place] [address] Alisha Rodas DDS [address] [place], [place] [phone] Appointment Social History Tobacco Use Types Packs/Day [...] Visit Diagnoses Not on filedocumented in this encounter"
--- OUTSIDE RECORDS SUMMARY | 2025-04-14 15:42 | XMS_ITS | Encounter Summary ---
Author Organization [employer] Address [address] [facility] 7t [place] [address] Care Team Providers Care Oil Spreader Operator Name Role Phone Unavailable Primary Care Provider Unavailabl e Reason for Visit * Reason Onset Date Comments medication 08/27/2023 Encounter Details Date Type Department Care Team (Late st Contact Info) Description 08/27/2023 Telephone [facility] ADULT DENTAL [address] [place] [address] Alisha Rodas DDS [address] [place], [place] [phone] medication Social History Tobacco Use Types Packs/Day [...] Miscellaneous Notes * Telephone Encounter - Mallika Madrgial - 08/27/2023 1:49 PM EDT Patient stated there was going to be an antibiotic sent to the pharmacy. And nothing sent. documented in this encounter Plan of Treatment Not on file documented as of this encounter Visit Diagnoses Not on filedocumented in this encounter
--- OUTSIDE RECORDS SUMMARY | 2025-04-14 15:42 | XMS_ITS | Encounter Summary ---
Author Organization [employer] Address [address] [facility] [address] [place] [address] Care Team Providers Care Filling Machine Operator Name Role Phone Unavailable Primary Care Provider Unavailabl e Encounter Details Date Type Department Care Team (Latest Contact Info) Description 02/15/2021 Abstract [facility] CONVERSIONS Dental, Provider, DDS Social History [...]
--- OUTSIDE RECORDS SUMMARY | 2025-04-14 15:42 | XMS_ITS | Encounter Summary ---
Author Organization [employer] Address [address] [facility] 7t [place] [address] Care Team Providers Care Featherer Name Role Phone Unavailable Primary Care Provider Unavailabl e Reason for Referral * Medications - Closed Specialty Diagnoses / Procedures Referred By Ghada pabon Referred To Contact Alisha Rodas DDS [address] [place] [address] Phone: tel: fax: Referral ID Status Reason Start Date Expiration Date Visits Re quested Visits Authorized [id number] Closed 1 1 Encounter Details Date Type Department Care Team (Late st Contact Info) Description 08/28/2023 Orders Only [facility] ADULT DENTAL [address] [place] [address] Alisha Rodas DDS [address] [place] [address] Social History Tobacco Use Types Packs/Day Years [...]
--- OUTSIDE RECORDS SUMMARY | 2025-04-14 15:42 | XMS_ITS | Encounter Summary ---
Author Organization [employer] Address [address] [facility] [address] 7[address] [place] [address] Care Team Providers Care Executive Marketing Assistant Name Role Phone Unavailable Primary Care Provider Unavailabl e Encounter Details Date Type Department Care Team (Latest Contact Info) Description 04/29/2019 Abstract [facility] CONVERSIONS Dental, Provider, DDS Social [...]
--- OUTSIDE RECORDS SUMMARY | 2025-04-14 15:42 | XMS_ITS | Encounter Summary ---
Author Organization [employer] Address [address] [facility] [address] 7[address] [place] [address] Care Team Providers Care Billboard Mechanic Name Role Phone Unavailable Primary Care Provider Unavailabl e Reason for Visit * Reason Onset Date Comments Appointment 09/11/2022 Encounter Details Date Type Department Care Team (Late st Contact Info) Description 09/11/2022 Telephone [facility] ADULT DENTAL [address] [place], [place] [phone] Rich Mancera DDS [address] [place], [place] [phone] Appointment Social History Tobacco Use Types Packs/Day [...]
--- OUTSIDE RECORDS SUMMARY | 2025-04-14 15:42 | XMS_ITS | Encounter Summary ---
Author Organization [employer] Address [address] [facility] [address] 7t [place] [address] Care Team Providers Care Small Products I Assembler Name Role Phone Unavailable Primary Care Provider Unavailabl e Encounter Details Date Type Department Care Team (Latest Contact Info) Description 09/06/2021 Abstract [facility] CONVERSIONS Dental, [...]
--- OUTSIDE RECORDS SUMMARY | 2025-04-14 15:42 | XMS_ITS | Clinical Summary ---
Author Organization [employer] Address 75 [facility] 7t [place] [address] Care Team Providers Care Dinkey Dispatcher Name Role Phone Unavailable Primary Care Provider [...] (SHARMA) 08/13/2023 Atherosclerotic heart diseas e of [place] coronary artery with other forms of angina [...] Cancer Screening 1990 HPV/Cotest 1990 Mammogram 2000 RSV Patients and Patients Aged 60 years or older (1 - Risk 50-74 years 1-dose series) 2010 Hepatitis B Vaccines (1 of 3 - Risk 3-dose series) 2020 DTaP/Tdap/Td Vaccines (2 - Td [...] Most Recently Relevant to Health Maintenance Insurance [facility] STANDARD MEDICARE DENTAL-[facility] MEDICAID [facility] ADULT
== END 2025-04-14 08:10 | disposition home or self-care (01) ==
LOC: HO.NEURO 08:09
PROVIDERS: PCP Internal Medicine
DX: R20.0 Anesthesia of skin (principal); R20.2 Paresthesia of skin
CPT/HCPCS: 95886; 95909

== ENCOUNTER → 2025-04-14 08:12 | Outpatient (BNV) | payer MEDICARE, MEDICAID, SELFPAY ==
[2024-07-15 09:17] VITALS: BP 128/60; BMI 27.1
== END ==
PROVIDERS: PCP Internal Medicine; Visit Provider Physical Medicine & Rehabilitation
DX: R20.0 Anesthesia of skin (principal); R20.2 Paresthesia of skin
CPT/HCPCS: 95886; 95909

== ENCOUNTER 2025-05-21 10:38 | Outpatient (AMB) | payer MEDICARE, MEDICAID, SELFPAY ==
[2024-07-15 09:17] VITALS: BP 128/60; BMI 27.1
--- OUTSIDE RECORDS SUMMARY | 2025-05-21 10:41 | XMS_ITS | Encounter Summary ---
Author Organization [employer] Address [address] [facility] [address] 7t [place] [address] Care Team Providers Care Electric Razor Assembler Name Role Phone Unavailable Primary Care Provider Unavailabl e Reason for Visit * Reason Onset Date Comments Appointment 09/11/2022 Encounter Details Date Type Department Care Team (Late st Contact Info) Description 09/11/2022 Telephone [facility] ADULT DENTAL [address] [place], [place] [phone] Rich Mancera DDS [address] [place], [place] [phone] Appointment Social History Tobacco Use Types Packs/Day [...] Care Team (Late st Contact Info) Description 07/30/2025 10:15 AM EST Office Visit [facility] ADULT DENTAL [address] [place] [address] Ursula Garcia [address] [place] [address] documented as of this encounter Visit Diagnoses Not on filedocumented in this encounter
--- OUTSIDE RECORDS SUMMARY | 2025-05-21 10:41 | XMS_ITS | Encounter Summary ---
Author Organization [facility] Address [address] [address] Phone Care Team Providers Care Renal Dietitian Name Role Phone Eduardo Garcia MD Primary Care Provider [phone] Eduardo Garcia MD Unavailable Leonor Rose MD Unavailable [phone] Familia Contreras MD Unavailable [phone] Jeyson Hu MD Unavailable Jus Liu MD Unavailable Eduardo Garcia MD Primary Care Provider Joe Shah MD Unavailable [phone] Jj Desai MD Unavailable Claudia Acevedo RN Unavailable [phone] Encounter Details Date Type Department Care Team (Latest Contact Info) Description 06/26/2019 Transcribe Orders [facility] Specimen Processing [address] [place] [address] Eduardo Garcia MD [address] [place], [place] [phone] [email or web address] Low back pain with right-sided sciatica, unspecified [...] Care Team (Late st Contact Info) Description 08/20/2025 11:30 AM EDT Office Visit [facility] [address] [place] [address] Eduardo Garcia MD [address] [place] [address] 10/04/2025 11:00 AM EDT Office Visit [facility] [address] [place] [address] Eduardo Garcia MD [address] [place] [address] documented as of this encounter Results * (ABNORMAL) Toxicology screen, urine (06/26/2019 8:34 PM EST) Pathologist [facility] URINE CANNABINOIDS NONE DETECTED NONE DETECTED [facility] Comment:Cutoff: 50 ng/mL URINE COCAINE METAB NONE DETECTED NONE DETECTED [facility] Comment:Cutoff: 300 ng/mL URINE AMPHETAMINES NONE DETECTED NONE DETECTED [facility] Comment:Cutoff: 1000 ng/mL URINE METHADONE NONE DETECTED NONE DETECTED [facility] Comment:Cutoff: 300 ng/mL URINE OPIATES NONE DETECTED NONE DETECTED [facility] Comment:Cutoff: 300 ng/mL URINE PHENCYCLIDINE NONE DETECTED NONE DETECTED [facility] Comment:Cutoff: 25 ng/mL URINE OXYCODONE Positive(A) NONE DETECTED [facility] Comment:Cutoff: 100 ng/ml URINE BARBITURATES NONE DETECTED NONE DETECTED [facility] Comment:Cutoff: 300 ng/mL URINE BENZODIAZEPINE NONE DETECTED NONE DETECTED [facility] Comment: Cutoff: 300 ng/mL INTERPRETATION FOR TOXICOLOGY PANEL: These results are unconfirmed and should be used for Medical Treatment purposes only. Urine (Urine) 06/26/2019 8:3 4 PM EST 06/26/2019 8:58 PM EST Eduardo Garcia MD LAB URINE ORDERABLES Final Re sult [facility] [address] [place] [address] documented in this encounter Visit Diagnoses Diagnosis [...] documented as of this encounter Care Teams Renal Dietitian Relationship Specialty Start Date End Date Eduardo Garcia MD [address] [place] [address] PCP - General Internal Medicine 06/21/17 03/10/20 Eduardo Garcia MD [address] [place] [address] PCP - General Internal Medicine 03/11/20 Eduardo Garcia MD [address] [place] [address] Insurance Assigned Provider 08/31/23 Leonor Rose MD [address] [place] [address] Neurosurgeon Neurosurgery 05/22/19 Familia Contreras MD [address] [place] [phone] Physical Therapist Physical Medicine and Rehabilitation 05/22/19 Jeyson Hu MD [address] [place] [phone] Internal Medicine 12/14/19 Jus Liu MD [address] [place] [address] Dr [address]m [address] [place] [address] Gastroenterology 12/29/19 Joe Shah MD [address] [place] [phone] Orthopedic Surgery 04/18/20 Jj Desai MD [address] [place] [address] Dr ELLER [address] [place] [phone] General Surgery 05/31/20 Claudia Acevedo, RN [address] [place], [place] [phone] [email or web address] PHCM Watch Crystal Edge GrinderBlood Tester Fowl 05/04/22 05/23/22 documented as of this encounter Additional Source Comments The information contained in this document represents components of the legal health record. It is not the complete legal health record.[facility]
--- OUTSIDE RECORDS SUMMARY | 2025-05-21 10:41 | XMS_ITS | Encounter Summary ---
Author Organization [employer] Address 75 [facility] 7t [place] [address] Care Team Providers Care Heat Curer Name Role Phone Unavailable Primary Care Provider Unavailabl e Reason for Referral * Medications - Closed Specialty Diagnoses / Procedures Referred By Ghada pabon Referred To Contact Alisha Rodas DDS [address] [place] [address] Phone: tel: fax: Referral ID Status Reason Start Date Expiration Date Visits Re quested Visits Authorized [id number] Closed 1 1 Encounter Details Date Type Department Care Team (Late Contact Info) Description 08/28/2023 Orders Only [facility] ADULT DENTAL [address] [place] [address] Alisha Rodas DDS [address] [place] [address] Social History Tobacco Use Types Packs/Day Years [...] Department Care Team (Late Contact Info) Description 07/30/2025 10:15 AM EST Office Visit [facility] ADULT DENTAL [address] [place] [address] Ursula Garcia [address] [place] [address] documented as of this encounter Visit Diagnoses Not on filedocumented in this encounter
--- OUTSIDE RECORDS SUMMARY | 2025-05-21 10:41 | XMS_ITS | Encounter Summary ---
Author Organization [employer] Address 75 [facility] 7t [place] [address] Care Team Providers Care Search Manager Name Role Phone Unavailable Primary Care Provider Unavailabl e Reason for Visit * Reason Onset Date Comments medication 08/27/2023 Encounter Details Date Type Department Care Team (Late Contact Info) Description 08/27/2023 Telephone [facility] ADULT DENTAL [address] [place] [address] Alisha Rodas DDS [address] [place], [place] [phone] medication Social History Tobacco Use Types Packs/Day [...] Description 07/30/2025 10:15 AM EST Office Visit [facility] ADULT DENTAL [address] [place] [address] Ursula Garcia [address] [place] [address] documented as of this encounter Visit Diagnoses Not on filedocumented in this encounter
--- OUTSIDE RECORDS SUMMARY | 2025-05-21 10:41 | XMS_ITS | Encounter Summary ---
Author Organization [facility] Address [address] [facility] [address] [place] [address] Phone Care Team Providers Care Cellophane Bath Mixer Name Role Phone Eduardo Garcia MD Unavailable [phone] Leonor Rose MD Unavailable [phone] Familia Contreras MD Unavailable [phone] Jeyson Hu MD Unavailable Jus Liu MD Unavailable [phone] Eduardo Gacria MD Primary Care Provider Joe Shah MD Unavailable [phone] Jj Desai MD Unavailable [phone] Encounter Details Date Type Department Care Team (Late st Contact Info) Description 05/14/2025 Orders Only [facility] [address] [place] [address] Provider, MD Chai [address] [place] [address] Social History Tobacco Use Types Packs/Day [...] high school, GED, job training, learning the Faro[place] language, technical skills, or developing parenting skills)? [...] Description 08/20/2025 11:30 AM EDT Office Visit [facility] [address] [place] [address] Eduardo Garcia MD [address] [place] [address] 10/04/2025 11:00 AM EDT Office Visit [facility] [address] [place] [address] Eduardo Garcia MD [address] [place] [address] documented as of this encounter Procedures Procedure Name Priority Date/Time Associated Diagnosis Comments OUTSIDE PROCEDURE Routine 05/14/2025 5:2 3 PM EST documented in this encounter Results * Outside Procedure (05/14/2025 5:23 PM EST) us Historical Provider PROCEDURE/MINOR SURGICAL PERFORMABLES Final Result documented in this encounter Visit Diagnoses Not on filedocumented in this encounter Additional Health Concerns Assessment Noted Time PHQ-2 Depression Total Score: 1 09/03/19 25 4:24 PM EDT documented as of this encounter Care Teams Cellophane Bath Mixer Relationship Specialty Start Date End Date Eduardo Garcia MD [address] [place] [address] PCP - General Internal Medicine 03/11/20 Eduardo Garcia MD [address] [place] [address] Insurance Assigned Provider 08/31/23 Leonor Rose MD [address] [place] [address] Neurosurgeon Neurosurgery 05/22/19 Familia Contreras MD [address] [place] [phone] Physical Therapist Physical Medicine and Rehabilitation 05/22/19 Jeyson Hu MD [address] [place] [phone] Internal Medicine 12/14/19 Jus Liu MD [address] [place] [address] [address] Gastroenterology 12/29/19 Joe Shah MD [address] [place] [phone] Orthopedic Surgery 04/18/20 Jj Desai MD [address] [place] [address] Dr ELLER [address] [place] [address] General Surgery 05/31/20 documented as of this encounter Additional Source Comments The information contained in this document represents components of the legal health record. It is not the complete legal health record.[facility]
--- OUTSIDE RECORDS SUMMARY | 2025-05-21 10:41 | XMS_ITS | Encounter Summary ---
Author Organization [employer] Address [address] [facility] [address]t [place] [address] Care Team Providers Care Licensed Pharmacist Name Role Phone Unavailable Primary Care Provider Unavailabl e Encounter Details Date Type Department Care Team (Latest Contact Info) Description 02/15/[address] [facility] CONVERSIONS Dental, Provider, DDS Social History [...] Description 07/30/2025 10:15 AM EST Office Visit [facility] ADULT DENTAL [address] [place] [address] Simon Garciaaris [address] [place] [address] documented as of this encounter Visit Diagnoses Not on filedocumented in this encounter
--- OUTSIDE RECORDS SUMMARY | 2025-05-21 10:41 | XMS_ITS | Clinical Summary ---
Author Organization [employer] Address 75 [facility] 7t [place] [address] Care Team Providers Care Milking Machine Mechanic Name Role Phone Unavailable Primary Care [...] (SHARMA) 08/13/2023 Atherosclerotic heart diseas e of [place] coronary artery with other forms of angina [...] Description 07/30/2025 10:15 AM EST Office Visit [facility] ADULT DENTAL [address] [place] [address] Jose, Ursula [address] [place] [address] Health Maintenance Due Date Last Done Comments [...] 2025 05/25/2022, 06/14/2021, 09/22/2020, Additional history exists Tobacco Screening 02/13/2025 02/14/2024 Dental X-Ray: Full Mouth 09/20/2025 09/19/2022 Pneumococcal Vaccine: 50+ Years Completed 11/13/2024, 08/21/2011 Influenza Vaccine Completed 02/15/2025, , 02/21/2023, Additional history exists HIB Vaccines Aged Out [...] on patient's age to complete this topic Goals Goal Patient Goal Type Associated Problems Recent Progress Patient-Stated? Author Help patients manage their type 2 diabetes Care Plan Help patients manage their type 2 diabetes No Ursula Garcia Weekly blood pressure task Care Plan Weekly blood pressure task No Ursula Garcia Help patients manage their type 2 diabetes Care Plan Help patients manage their type 2 diabetes No Ursula Garcia Patient has chronic kidney disease Care Plan Patient has chronic kidney disease No Ursula Garcia Weekly blood pressure task Care Plan Weekly blood pressure task No Ursula Garcia Patient has chronic kidney disease Care Plan Patient has chronic kidney disease No Ursula Garcia Procedures Procedure Name Priority Date/Time Associated Diagnosis [...] or Most Recently Relevant to Health Maintenance Additional Health Concerns Active Problems Noted Date Diagnosed Date Help patients manage their type 2 diabetes 04/27 Weekly blood pressure task 04/27/2025 Help patients manage their type 2 diabetes 04/27 Patient has chronic kidney disease 04/27/2025 Weekly blood pressure task 04/27/2025 Patient has chronic kidney disease 04/27/2025 Insurance [facility] STANDARD MEDICARE [place] MEDICAID STAND ADULT
--- OUTSIDE RECORDS SUMMARY | 2025-05-21 10:41 | XMS_ITS | Clinical Summary ---
Author Organization [facility] Address [address] [address] Phone Care Team Providers Care Performance Test Architect Name Role Phone Eduardo Garcia MD Unavailable [...] 2 (two) times a day. Active ascorbic vhaq-pqgyxale-bza (EMERGEN-C) 1,000 mg PwEP Take 1 packet by mouth every other day. Active naloxone (NARCAN) 4 mg/actuation nasal sprayIndications: Chronic, continuous use of opioids 1 spray by Intranasal route once for 1 dose. After one (1) spray, call 911. If no response in 3-5 minutes, repeat with second nasal spray. 1 each 1 Active Additional Information Patient taking differently:1 spray Intranasal Once,After one (1) spray, call 911. If no response in 3-5 minutes, repeat with second nasal spray. As needed, Reported on 05/14/2025 ASCORBIC ACID WITH CARLA HIPS 500 MG [...] Glucose meter Freestyle lite 1 each Active metoprolol succinate (TOPROL-XL) 25 MG 24 [...] USE THREE TIMES DAILY 100 each 11 025 Active VENTOLIN HFA 90 mcg/actuation inhaler [...] EVERY DAY 90 tablet 3 025 Active oxyCODONE 5 MG immediate release tabletIndications :Bilateral low back pain with right-sided sciatica Take 1 tablet (5 mg total) by mouth every 4 (four) hours as needed (low back pain with righ sided sciatica). partial fill okay upon patient request No more than 5 a day 140 tablet 025 2025 Active esomeprazole (NEXIUM) 40 MG capsule Take 40 mg by mouth daily before breakfast. 025 Active blood-glucose,rec eiver,cont (FREESTYLE CANDIDA 3 READER) Misc by Miscellaneous route. Active FREESTYLE CANDIDA 3 SENSOR Cherelle every 15 (fifteen) days. Active VENTOLIN HFA 90 mcg/actuation inhalerIndication s:Bronchospasm INHALE 2 PUFFS EVERY 4 HOURS NEEDED FOR WHEEZING 18 g 3 023 2024 Discontinued TRUEPLUS LANCETS 33 gauge MiscIndications:T ype 2 diabetes mellitus without complications TEST BLOOD SUGAR THREE TIMES DAILY BEFORE MEALS 100 each 5 024 2024 Discontinued(N o longer taking) oxyCODONE 5 MG immediate release tabletIndications :Bilateral [...] assess. Advised that she should contact her kier pleater regarding her difficulties with her insulin levels. [...] I advised that she should contact her organization development consultant regarding the symptoms as well so that [...] need 02/18/2024 Atherosclerotic heart diseas e of [place] coronary artery with other forms of angina pectoris 02/21/2023 Systemic lupus erythematosus 09/21/2019 Nocturia 12/13/2017 Bilateral low back pain with bilateral sciatica 06/06/2017 Cervical radiculopathy 06/06/2017 Depression 06/06/2017 Respiratory abnormality 06/06/2017 Fatigue 06/06/2017 Other cirrhosis of liver 06/06/2017 Gastroesophageal reflux disease 06/06/2017 Overview (01/29/2024): [facility] seen 01/02/24 Dr. Liu - pt [...] Encounters Date Type Department Care Team Description 05/20/2025 Refill [facility] [address] [facility] [place] [address] Keyla Barth PA-C Medication Refill 05/14/2025 11:30 AM EST Office Visit [facility] [address] [facility] [place] [place] [address] Eduardo Garcia MD Bilateral low back pain with right-sided sciatica (Primary Dx); Long-term current use of opiate analgesic; Left arm pain; Cervical radiculopathy; Atherosclerotic heart disease of [place] coronary artery with other forms of angina pectoris; Type 2 diabetes mellitus without complication, without long-term current use of insulin; Nocturia 05/14/2025 Orders Only [facility] Care [facility] [address] [facility] [place] [address] Chai Gold MD 05/12/2025 Documentation [facility] [address] [facility] [place] [address] Eduardo Garcia MD 05/06/2025 Refill [facility] [address] [facility] [address] Eduardo Garcia MD Medication Refill (CSRP) 04/14/2025 Orders Only [facility] [address] [place] [address] Chai Gold MD 04/06/2025 Refill [facility] [address] [facility] [address] Eduardo Garcia MD Medication Refill (CSRP) 03/09/2025 Refill [facility] [address] [facility] [address] Eduardo Garcia MD Medication Refill (CSRP) 03/07/2025 Refill [facility] [address] [facility] [address] Eduardo Garcia MD Medication Refill 02/23/2025 Orders Only [facility] [address] [facility] [place] [address] ProviderChai MD from Last 3 Months Immunizations [...] high school, GED, job training, learning the Maltese language, technical skills, or developing parenting skills)? [...] Sign Reading Time Taken Comments Blood Pressure 134/55 05/14/2025 11:53 AM EST Pulse 77 05/14/2025 11:53 AM EST Temperature 37.2 C (98.9 F) 05/14/2025 11:53 AM EST Respiratory Rate 13 02/15/2025 3:25 PM EDT Oxygen Saturation 97% 05/14/2025 11:53 AM EST Inhaled Oxygen Concentration - - Weight 60.8 kg (134 lb) 05/14/2025 11:53 AM EST Height 154.4 cm (5' 0.79 ) 05/14/2025 11:[address] Body Mass Index 25.5 05/14/2025 11:53 AM EST Plan of Treatment Upcoming Encounters Date Type Department Care Team (Late st Contact Info) Description 08/20/2025 11:30 AM EDT Office Visit [facility] [address] [place] [address] Eduardo Garcia MD [address] [place] [address] 10/04/2025 11:00 AM EDT Office Visit [facility] Primary Care [facility] [address] [place] [address] Eduardo Garcia MD [address] [place] [address] Health Maintenance Due Date Last Done Comments HEPATITIS A VACCINES (1 of 2 - Risk 2-dose series) 09/03/1979 ZOSTER VACCINES (1 of 2) 09/03/1979 COLOGUARD 2005 FIT TEST 2005 FOBT 2005 SIGMOIDOSCOPY 2005 VIRTUAL COLONOSCOPY 2005 RSV VACCINE (1 - Risk 50-74 years 1-dose series) 2010 Adult Td,Tdap Booster 11/17/2022 11/17/2012, 001 COVID-19 VACCINE ( season) 2025 05/25/2022, 06/14/2021, 09/22/2020, Additional history exists LIPID PANEL 07/14/2025 07/14/2024, 06/27, 07/14/2024, Additional history exists DEPRESSION SCREENING 2025 2024 DIABETIC EYE EXAM 09/16/2025 09/16/2024, , 03/05/2024, Additional history exists HEMOGLOBIN A1C 10/10/2025 04/12/2025, 06/27, 03/20/2024, Additional history exists BLOOD PRESSURE 11/12/2025 05/14/2025 ALKALINE PHOSPHATASE LEVEL 04/12/202604/12, 01/21/2025, 09/30/2024, Additional history exists CREATININE LEVEL 04/12/2026 04/12/2025, , 09/30/2024, Additional history exists POTASSIUM LEVEL 04/12/2026 04/12/2025, 12/26, 09/30/2024, Additional history exists MAMMOGRAM 11/24/2026 11/24/2024, 10/26, 11/15/2022, Additional history exists PAP SMEAR 02/07/2027 02/07/2022, 05/11/2016 COLONOSCOPY 05/03/2031 05/03/2021, 09/25/2012 COLORECTAL CANCER SCREENING 05/03/2031 HIV ONE-TIME SCREENING (18-65 YEARS) Completed 02/12/2018 HEPATITIS C SCREENING Completed 05/28/2024, 019 PNEUMOCOCCAL VACCINES (50+ years) Completed 11/13/2024, 08/21/2011 INFLUENZA VACCINE Completed 02/15/2025, , 02/21/2023, Additional history exists SMOKING STATUS SCREENING (Once After 26 Yrs) Completed 05/14/2025 HIB VACCINES Aged Out No longer eligi [...] PROCEDURE Routine 05/14/2025 5:2 3 PM EST TOXICOLOGY SCREEN, URINE Routine 05/14/2025 12:52 PM EST Bilateral low back pain with right-sided sciatica Long-term current use of opiate analgesic OUTSIDE LAB Routine 04/12/2025 8:03 AM EST OUTSIDE POTASSIUM LEVEL Routine 04/12/2025 OUTSIDE HEMOGLOBIN A1C Routine 04/12/2025 OUTSIDE TSH LEVEL Routine 04/12/2025 OUTSIDE ALT LEVEL Routine 04/12/2025 OUTSIDE ALKALINE PHSOPHATASE LEVEL Routine 04/12/2025 OUTSIDE SERUM CREATININE LEVEL Routine 04/12/2025 OUTSIDE IMAGING Routine 02/23/2025 10:43 AM EDT MAMMOGRAPHY Routine 11/24/2024 9:32 AM EDT DIABETES EYE EXAM FOR RESULT ENTRY ONLY Routine 09/16/2024 2:00 PM EDT OUTSIDE HDL Routine 07/14/2024 OUTSIDE HEPATITIS C VIRUS SCREENING Routine 05/28/2024 PAP TEST Routine 02/07/2022 COLONOSCOPY FOR RESULT ENTRY ONLY Routine 05/03/2021 from Last 3 Months or Most Recently Relevant to Health Maintenance Results * Outside Procedure (05/14/2025 5:23 PM EST) Result [facility] Provider PROCEDURE/MINOR SURGICAL PERFORMABLES Final Result * Toxicology Screen, Urine (05/14/2025 12:52 PM EST) Amphetamines, Urine Negative Negative 05/14/2025 10:00 PM [facility] Benzodiazepine , Urine Negative Negative 05/14/2025 10:00 PM [facility] Cocaine Metabolite, Urine Negative Negative 05/14/2025 10:00 PM [facility] Opiates, Urine Negative Negative 05/14/2025 10:00 PM [facility] Oxycodone, Urine Negative Negative 05/14/2025 10:00 PM [facility] Fentanyl, Urine Negative Negative 05/14/2025 10:00 PM [facility] Creatinine, Urine 52 20 - 300 mg/dL 05/14/2025 10:00 PM [facility] Urine (Urine, Voided) Non-Blood Collection / Unknown 05/14/2025 12:52 PM EST 05/14/2025 12:53 PM EST [facility] - 05/14/2025 10:00 PM EST This screening test was performed by immunoassay methodology, which may occasionally yield false-negative or false-positive results. Confirmatory testing can be requested if a definitive result is needed. Results are to be used only for medical (ie, treatment) purposes. Unconfirmed screening results must not be used for non-medical purposes (eg, employment testing). Result [facility] Eduardo Garcia MD LAB URINE ORDERABLES Final [facility] [address] [address] * Outside Lab (Non-MGB) (04/12/2025 8:03 AM EST) Result [facility] Provider LAB BLOOD BKR ORDERABLES Final Result * Outside TSH Level (04/12/2025) TSH - External 4.10 0.5 - 5 uIU/L EXTERNAL NON-INTERFACED REF LAB Result [facility] Provider MD LAB BLOOD ORDERABLES Ruth l Result Performing Organization Address City/[facility] Co de Phone Number EXTERNAL NON-INTERFACED REF LAB * Outside Potassium Level (04/12/2025) Potassium level - External 4.1 3.4 - 5.0 mmol/L EXTERNAL NON-INTERFACED REF LAB Result [facility] Provider MD LAB BLOOD ORDERABLES Ruth l Result Performing Organization Address City/[facility] de Phone Number EXTERNAL NON-INTERFACED REF LAB * Outside HbA1c (04/12/2025) Hemoglobin A1c - External 7.6 % EXTERNAL NON-INTERFACED REF LAB Result [facility] Provider MD LAB BLOOD ORDERABLES Ruth l Result Performing Organization Address [facility] de Phone Number EXTERNAL NON-INTERFACED REF LAB * (ABNORMAL) Outside Serum Creatinine Level (04/12/2025) Creatinine, serum - External 0.66(A) 0.8 - 1.3 mg/dL EXTERNAL NON-INTERFACED REF LAB Result [facility] Provider MD LAB BLOOD ORDERABLES Ruth l Result Performing Organization Address [facility] de Phone Number EXTERNAL NON-INTERFACED REF LAB * Outside ALT Level (04/12/2025) ALT - External 22 5 - 30 U/L EXTE RNAL NON-INTERFACED REF LAB Result [facility] Provider MD LAB BLOOD ORDERABLES Ruth l Result Performing Organization Address [facility] de Phone Number EXTERNAL NON-INTERFACED REF LAB * (ABNORMAL) Outside Alkaline Phosphatase Level (04/12/2025) ALKALINE PHOSPHATE LEVEL - EXTERNAL 159(A) 50 - 100 U/L EXTERNAL NON-INTERFACED REF LAB Result [facility] Provider MD LAB BLOOD ORDERABLES Ruth l Result Performing Organization Address [facility] Co de Phone Number EXTERNAL NON-INTERFACED REF LAB * Outside Imaging Report Only (02/23/2025 10:43 AM EDT) us Historical Provider IMG XR CHEST Final Res ult * HM MAMMOGRAPHY FOR RESULT ENTRY ONLY (11/24/2024 9:32 AM EDT) Historical Provider HEALTH MAINTENANCE Final Result * HM DIABETES EYE EXAM FOR RESULT ENTRY ONLY (09/16/2024 2:00 PM EDT) Historical Alla ARNOLD HEALTH MAINTENANCE Final Result * Outside HDL (07/14/2024) Pathologist [facility] HDL - External 41 40 - 80 mg/dL [facility] Provider LAB BLOOD ORDERABLES Ruth l Result * Outside Hepatitis C Virus Screening (05/28/2024) Pathologist [facility] Hepatitis C Screening - External Neg [facility] Alla ARNOLD LAB BLOOD ORDERABLES Ruth l Result * Pap Smear (02/07/2022) [facility] Provider CYTOLOGY ORDERABLES Final Result * HM COLONOSCOPY FOR RESULT ENTRY ONLY (05/03/2021) [facility] Alla ARNOLD HEALTH MAINTENANCE Edited Result - Final from Last 3 Months or Most Recently Relevant to Health Maintenance Insurance [place] [id number] [facility] MEDICARE PART A & B MEDICARE PART A & B Member Subscriber Plan / Payer (Ef fective 2010-Present) Name:Radha Chong Member ID:[id number] Relation to Subscriber:Self Name:Radha Chong Subscriber ID:[id number] Payer ID:[id number] Group ID:Not on file Type:Medicare Address: [employer] 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 Healthcare Proxy 08/20/2017 12:27 PM Healt hcare Proxy (In Latvian) Care Teams Performance Test Architect Relationship Specialty Start Date End Date Eduardo Garcia MD [address] [place] [address] [email or web address] PCP - General Internal Medicine 03/11/20 Eduardo Garcia MD [address] [place] [address] [email or web address] Insurance Assigned Provider 08/31/23 Leonor Rose MD [address] [place] [address] Neurosurgeon Neurosurgery 05/22/19 Familia Contreras MD [address] [place] [phone] Physical Therapist Physical Medicine and Rehabilitation 05/22/19 Jeyson Hu MD [address] [place] [address] Internal Medicine 12/14/19 Jus Liu MD [address] [place] [address] Dr [address]m [address] [place] [address] Gastroenterology 12/29/19 Joe Shah MD [address] [place] [phone] Orthopedic Surgery 04/18/20 Jj Desai MD [address] [place] [address] Dr ELLER [address] [place] [phone] General Surgery 05/31/20 Additional Source Comments The information contained in this document represents components of the legal health record. It is not the complete legal health record.[facility]
--- OUTSIDE RECORDS SUMMARY | 2025-05-21 10:41 | XMS_ITS | Encounter Summary ---
Author Organization [employer] Address [address] [place] [address] Care Team Providers Care Electric Cutter Operator Name Role Phone Unavailable Primary Care Provider Unavailabl e Encounter Details Date Type Department Care Team (Latest Contact Info) Description 09/06/2021 Abstract [facility] CONVERSIONS Dental, Provider, DDS Social [...] Description 07/30/2025 10:15 AM EST Office Visit [facility] ADULT DENTAL [address] [place] [address] Simon Garciaaris [address] [place] [address] documented as of this encounter Visit Diagnoses Not on filedocumented in this encounter
--- OUTSIDE RECORDS SUMMARY | 2025-05-21 10:41 | XMS_ITS | Encounter Summary ---
Author Organization [employer] Address [address] [facility] 7t [place] [address] Care Team Providers Care E Business Project Manager Name Role Phone Unavailable Primary Care Provider Unavailabl e Reason for Visit * Reason Onset Date Comments Appointment 11/19/2022 Encounter Details Date Type Department Care Team ([facility] st Contact Info) Description 11/19/2022 Telephone [facility] ADULT DENTAL [address] [place] [address] Alisha Rodas DDS [address] [place], [place] [phone] Appointment Social History Tobacco Use Types Packs/Day [...] Miscellaneous Notes * Telephone Encounter - Mallika Als - 11/19/2022 9:08 AM EDT Patient cancelled [...] Description 07/30/2025 10:15 AM EST Office Visit [facility] ADULT [facility] [address] [place] [address] Ursula Garcia [address] [place] [address] documented as of this encounter Visit Diagnoses Not on filedocumented in this encounter
--- OUTSIDE RECORDS SUMMARY | 2025-05-21 10:41 | XMS_ITS | Encounter Summary ---
Author Organization [facility] Address [address] [place] [address] Phone Care Team Providers Care Account Support Manager Name Role Phone Eduardo Garcia MD Unavailable Leonor Rose MD Unavailable Familia Contreras MD Unavailable [phone] Jeyson Hu MD Unavailable Jus Liu MD Unavailable Eduardo Garcia MD Primary Care Provider Joe Shah MD Unavailable [phone] Jj Desai MD Unavailable [phone] Reason for Visit * Reason Comments Medication Refill Encounter Details Date Type Department Care Team (Late st Contact Info) Description 05/20/[address] [facility] [address] [place] [address] Keyla Barth PA-C [address] [place] [address] [address] [place] [phone] [email or web address] Medication Refill Social History Tobacco Use Types [...] high school, GED, job training, learning the Bulgarian language, technical skills, or developing parenting skills)? [...] Progress Notes * Teja Friedman MA - 05/21/2025 7:53 AM EST Rx Care Gap Status - Instructions for Clinical Staff (prescriber discretion applies): > Mismatch review guide > N/a - No action needed Visit Info Last visit: 05/14/2025 Eduardo Garcia MD - Internal [facility] > Requested f/u: Return in about 3 months (around 08/12/2025). Upcoming visit: 08/20/2025 Eduardo Garcia MD - Internal Medicine [facility] ACTIONS TAKEN BY Teja Friedman MA - Sig/Pt Instructions matches med list. Diabetes Rx Protocol (on Diabetes Registry) - empagliflozin Criteria met; renew for up to 12 months. Visit in the past 14 months: Yes Clinical criteria: - BMP within past year: Yes - A1c within past 6 months: Yes - Lipid panel within past year: Yes (LDL 67 on 07/14/2024) - Urine microalbumin within past year or on LESLEE/ARB: Yes Lab Results Component Value Date SODIUM 137 01/21/2025 Potassium level - External 4.1 04/12/2025 CHLORIDE 100 01/21/2025 CO2 23 01/21/2025 BUN 12 01/21/2025 Creatinine, serum - External 0.66 (*) 04/12/2025 EGFR 105 01/21/2025 Lab Results Component Value Date Creatinine, serum - External 0.66 (*) 04/12/2025 Creatinine, serum - External 0.73 (*) 09/30/2024 CREATININE 0.50 01/21/2025 EGFR 105 01/21/2025 EGFR 98 05/06/2023 EGFR 106 01/25/2023 Lab Results Component Value Date Hemoglobin A1c - External 7.6 04/12/2025 Microalbumin/Creatinine Ratio, urine - External unable to calculate 05/28/2024 URINE MICROALBUMIN <1.2 06/26/2019 Lab Results Component Value Date LDL - External 67 07/14/2024 HDL - External 41 07/14/2024 CARDIAC RISK RATIO 3.4 05/06/2023 TRIGLYCERIDES 120 05/06/2023 Cholesterol, total - External 129 07/14/2024 documented in this encounter Plan of Treatment Upcoming Encounters Date Type Department Care Team (Late st Contact Info) Description 08/20/2025 11:30 AM EDT Office Visit [facility] [address] [place] [address] Eduardo Garcia MD [address] [place] [address] 10/04/2025 11:00 AM EDT Office Visit [address] [address] Eduardo Garcia MD [address] [place] [address] documented as of this encounter Visit Diagnoses Diagnosis Type 2 diabetes mellitus without complications documented in this encounter Additional Health Concerns Assessment Noted Time PHQ-2 Depression Total Score: 1 09/03/19 25 4:24 PM EDT documented as of this encounter Care Teams Account Support Manager Relationship Specialty Start Date End Date Eduardo Garcia MD [address] [place] [phone] PCP - General Internal Medicine 03/11/20 Eduardo Garcia MD [address] [place] [address] Insurance Assigned Provider 08/31/23 Leonor Rose MD [address] [place] [address] Neurosurgeon Neurosurgery 05/22/19 Familia Contreras MD [address] [place] [phone] Physical Therapist Physical Medicine and Rehabilitation 05/22/19 Jeyson Hu MD [address] [place] [phone] Internal Medicine 12/14/19 Jus Liu MD [address] [place] [address] Dr [address]m [address] [place] [address] Gastroenterology 12/29/19 Jeo Shah MD [address] [place] [phone] Orthopedic Surgery 04/18/20 Jj Desai MD [address] [place] [address] Dr ELLER [address] [place] [phone] General Surgery 05/31/20 documented as of this encounter Additional Source Comments The information contained in this document represents components of the legal health record. It is not the complete legal health record.[facility]
--- OUTSIDE RECORDS SUMMARY | 2025-05-21 10:41 | XMS_ITS | Encounter Summary ---
Author Organization [employer] Address [address] [place] [address] Care Team Providers Care Certified Recreational Therapist Name Role Phone Unavailable Primary Care Provider Unavailabl e Encounter Details Date Type Department Care Team (Latest Contact Info) Description 04/29/2019 Abstract [facility] CONVERSIONS Dental, Provider, DDS Social [...] Description 07/30/2025 10:15 AM EST Office Visit [facility] ADULT DENTAL [address] [place] [address] Simon Garciaaris [address] [place] [address] documented as of this encounter Visit Diagnoses Not on filedocumented in this encounter
--- NOTE | 2025-05-21 10:44 | A.OFFVIS_ITS ---
Intake Visit Reasons: OV, EMG Review L Hand Intake Note: Radha is a 63 year old right hand dominant female who presents today for an EMG Review of her Left Hand. She was last seen on 03/25/24. At the time, her symptoms were intermittent, but daily, worse at night. Today, patient reports her symptoms has been off and on. History of Left Carpal Tunnel Release, 1993 & 2013. IMPRESSION 04/14/25: 1. This is a normal study. 2. There is no electrodiagnostic evidence for median neuropathy, ulnar neuropathy, brachial plexopathy, or cervical radiculopathy. Allergies duloxetine (From CYMBALTA) Allergy (Intermediate, Verified 05/21/25 10:48) SHAKINESS HPI HPI OV, EMG Review L Hand: Details: Radha is a 63 year old right hand dominant female who presents today for an EMG Review of her Left Hand. She was last seen on 03/25/24. At the time, her symptoms were intermittent, but daily, worse at night. Today, patient reports her symptoms has been off and on. History of Left Carpal Tunnel Release, 1993 & 2013. Patient states that she does also continue to experience left shoulder pain. IMPRESSION 04/14/25: 1. This is a normal study. 2. There is no electrodiagnostic evidence for median neuropathy, ulnar neuropathy, brachial plexopathy, or cervical radiculopathy. [facility] Medical History Trigger finger, left ring finger Cirrhosis Antiphospholipid antibody syndrome Leg pain, right Abdominal bloating Lupus Arthritis POOL (dyspnea on exertion) Gallstones Cirrhosis Nonalcoholic steatohepatitis (SHARMA) Autoimmune hepatitis High blood pressure Fibromyalgia Diabetes Surgical History History of esophagogastroduodenoscopy (EGD) History of heart artery stent Hx of cholecystectomy Hx of endoscopy History of colonoscopy History of shoulder surgery History of cataract surgery (2010) History of repair of right rotator cuff (08/2011) History of cervical discectomy (07/2009) History of carpal tunnel release Family History Father History of diabetes mellitus, type II History of hypertension History of heart bypass surgery Mother History of diabetes mellitus, type II Brother History of gout Paternal Uncle Cancer Paternal Aunt Cancer Social History Household Members: None Housing: Apartment Are you a primary spiritual care coordinator to a significant other at home: No 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 have visiting nurse or other home services: No Alcohol intake: never Patient Tobacco Use Status: Never used Tobacco service: No Current occupational status: disabled Review of Systems Const All systems reviewed & are unremarkable except as noted in HPI and below Physical Exam Extrem Other: Neuro: Normal sensation of the tips of all digits of the left hand in the office today No thenar or intrinsic wasting. Good APB muscle firing and good finger cross. Vascular: Capillary refill brisk. ROM: Patient can make a fist and extend all their digits. Skin: No lacerations or abrasions noted. General: No ecchymosis. No erythema or evidence of infection. Assessment & Plan Assessment & Plan (1) Numbness and tingling of left hand: Code(s): R20.0 - Anesthesia of skin; R20.2 - Paresthesia of skin Category: Medical Plan 1. Numbness and tingling of the left hand Symptoms intermittent, daily, worse at night With negative EMG Patient is educated about this condition Patient is educated about the typical treatment and recovery course No acute intervention indicated at this time Patient is educated that she continues to experience hand numbness and tingling in 6 months, she should call us for repeat EMG However, the patient does report that she does have a significant history of neck issues, and therefore should follow-up with the doctor treating her for her neck issues Patient understands this and is amenable to this plan Follow-up as needed with any acute concerns Coding Level of Care Code Est Pt Level 3 (71399) Diagnoses Numbness and tingling of left hand R20.0; R20.2
== END 2025-05-21 10:53 | disposition home or self-care (01) ==
LOC: HO.HOS 10:38
PROVIDERS: PCP Internal Medicine
DX: R20.0 Anesthesia of skin (principal); R20.2 Paresthesia of skin
CPT/HCPCS: 99213

== ENCOUNTER → 2025-05-21 10:38 | Outpatient (BNVA) | payer MEDICARE, MEDICAID, SELFPAY ==
[2024-07-15 09:17] VITALS: BP 128/60; BMI 27.1
== END ==
PROVIDERS: PCP Internal Medicine
DX: R20.0 Anesthesia of skin (principal); R20.2 Paresthesia of skin
CPT/HCPCS: 99212